=== PATIENT | male | born 1955 | race Caucasian/White ===

== ENCOUNTER 2022-07-29 11:41 | Emergency (ER) | payer MEDICARE, MEDICAID, SELFPAY ==
--- NOTE | ~2022-07-29 | XR_ITS ---
EXAMINATION: XR CHEST CLINICAL INFORMATION: Chest pain COMPARISON: 04/08/2018 TECHNIQUE: 2 views of the chest were obtained. FINDINGS: Lungs are well expanded. There appear to be chronically increased interstitial opacities of lower lung zones. This is not appreciably changed compared to 04/08/2018. No evidence of any superimposed acute consolidation or pleural effusion. Cardiac silhouette remains normal in size. The pulmonary vascular pattern is normal. There is intact appearance of partial visualized cervical spine fusion hardware. Mild and moderate multilevel discovertebral degenerative change of the visualized spine. XR/XR chest 2V IMPRESSION: The chronically observed increased reticular opacities in lower lung zones might be due to inflammation of airways. There is no acute cardiopulmonary abnormality compared to 04/08/2018.
[2022-07-29 11:55] VITALS: BP 112/74; PULSE 110; O2SAT 97
[2022-07-29 12:08] VITALS: BP 98/66; PULSE 96; RESP 18; TEMP 36.7; O2SAT 97; BMI 27.8
--- NOTE | 2022-07-29 12:11 | ED_ITS ---
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 Patient states that he was diagnosed with COVID-19 today and was sent here. Patient states that he has a cough but has no other complaints. Patient denies any dizziness, lightheadedness, abdominal pain, nausea, vomiting, fever, chills, blurry vision, double vision, loss of vision, chest pain, difficulty breathing, shortness of breath, back pain, night sweats, pain with urination, increased urinary frequency, increased urinary urgency, blood in his urine or stool, sy ncope or a near syncopal episode, recent trauma or falls, bowel incontinence, bladder incontinence, bowel retention, bladder retention, or any other complaints at this time. Onset (ago): day(s) (7) Severity: mild Severity scale (1-10): 2 Relieving factors: none Exacerbating factors: none Associated symptoms: cough Treatments prior to arrival: none Related Data Previous Rx's Medication Instructions Recorded benzonatate 100 mg capsule 100 mg PO BID PRN cough 7 days #14 07/29/22 caps prednisone 20 mg tablet 20 mg PO DAILY 7 days #7 tabs 07/29/22 Allergies Allergy/AdvReac Type Severity Reaction Status Date / Time No Known Allergies Allergy Verified 07/29/22 12:15 [No Known Allergies*] Review of Systems Constitutional: Constitutional: Reports no additional constitutional complaints, Denies chills, Denies fever(s) and Denies night sweats Eyes: Eyes: Reports no additional eye complaints, Denies blurry vision, Denies change in vision, Denies diplopia, Denies eye discharge, Denies loss of vision and Denies eye pain ENT: Denies dizziness Cardiovascular: Cardiovascular: Reports no additional cardiovascular complaints, Denies chest pain, Denies lightheadedness, Denies Loss of Consciousness and Denies dyspnea Respiratory: Respiratory: Reports no additional respiratory complaints, Reports cough and Denies dyspnea Gastrointestinal: Gastrointestinal: Reports no additional gastrointestinal complaints, Denies abdominal pain, Denies melena, Denies hematochezia, Denies change in bowel habits and Denies change in stool character Genitourinary: Genitourinary: Reports no additional male genitourinary complaints, Denies hematuria, Denies oliguria, Denies difficulty urinating, Denies dysuria, Denies urinary frequency, Denies urinary hesitancy, Denies urinary incontinence and Denies urinary urgency Musculoskeletal: Musculoskeletal: Reports no additional musculoskeletal complaints, Denies numbness and Denies tingling Neurologic: Denies dizziness, Denies loss of vision, Denies numbness and Denies tingling Psychiatric: Psychiatric: Reports no additional psychiatric complaints Endocrine: Endocrine: Reports no additional endocrine complaints Hematologic/Lymphatic: Hematologic/Lymphatic: Reports no additional hematologic/lymphatic complaints Allergic/Immunologic: Allergic/Immunologic: Reports no additional all ergic/immunologic complaints PMFSH Past Medical History Attestation statement: The following information was validated with the patient. Source: old records reviewed and nursing notes reviewed Social History Social History Advance Directives: No Advance Directives Information Provided: Yes Physical Exam ED Vital Signs: Vital Signs - 24 hr 07/29/22 12:08 Temperature 98.1 F Pulse Rate 96 Respiratory Rate 18 Blood Pressure 98/66 Pulse Oximetry 97 Oxygen Delivery Method Room Air BMI result Body Mass Index 27.8 Const General: cooperative, no acute distress, alert and awake Nutritional Appearance: well nourished Orientation/consciousness: patient oriented x3 Limitations: no limitations HENMT Head: Yes normal to inspection and Yes atraumatic Ears: hearing grossly normal bilaterally and external ears normal General nose exam: Normal external nose present, no nasal discharge noted and no epistaxis Face and sinus: Yes normal facial exam, No abrasion and No laceration Mouth: Normal oral and palatal mucosa present, no drooling and no muffled voice Eyes General: appearance normal, both eyes and all related structures Periorbital: periorbital findings normal Eyelids: Yes eyelids normal Conjunctivae: conjunctivae normal Pupils: Equal, round and reactive pupils present EOM: EOMs intact bilaterally Neck Neck: Yes normal visual inspection, Yes full ROM and Yes no lymphadenopathy Chest Chest palpation & inspection: normal inspection of the chest Resp Effort & Inspection: normal respiratory effort, able to speak in complete sentences and Actively coughing GI Inspection: Yes normal to inspection Neuro General: patient oriented x3 and moves all extremities Cranial nerves: Yes Equal, round and reactive pupils present Cognition (Neuro): normal cognition Motor exam (neuro): 5/5 motor strength present throughout Sensory Exam: Normal double simultaneous stimulation for sensation Coordination: [id number] test normal Extrem General: Yes normal to inspection, Yes full ROM and Yes capillary refill normal Psych Appearance: grossly normal Mental Status: mental status grossly normal Affect: normal affect Attitude: cooperative Thought process: Normal thought process present Thought content: Normal thought content present Insight: Good insight present (Psych) Medications Administered Discontinued Medications Generic Name Dose Route Start Last Admin Trade Name Henri PRN Reason Stop Dose Admin Albuterol Sulfate 2 puff 07/29/22 13:02 07/29/22 13:10 Albuterol Sulfate 90 Mcg 8 Gm Inhaler INHALE 07/29/22 13:03 2 puff ONCE ONE Administration Methylprednisolone Sodium Succinate 60 mg 07/29/22 13:02 07/29/22 13:11 Methylprednisolone Sod Succ 125 Mg/2 Ml Vial IM 07/29/22 13:03 60 mg ONCE ONE Administration Medical Decision Making Medical Decision Making [facility] Narrative: Patient is a 66 year old assigned male at with a history of HTN and DM presenting to the emergency department today with a cough and being COVID-19 positive. Patient's physical exam was unremarkable. Patient's blood work was unr emarkable. Patient's EKG was unremarkable. Patient's chest x-ray showed no acute process. I explained my physical exam findings as well as all test results to the patient. I answered all questions asked by the patient. Patient received 2 puffs of an albuterol inhaler with instructions on how to properly use it with a spacer and IM solu-medrol which he stated helped his symptoms significantly. I stressed the importance of the patient taking his medication as prescribed. I stressed the importance of the patient following up with his primary care provider. I stressed the importance of the patient returning to the emergency department immediately if his symptoms were to worsen or if he were to develop any dizziness, shortness of breath, difficulty breathing, chest pain, blurry vision, loss of vision, nausea, vomiting, abdominal pain, fever, chills, back pain, or any other complaints. Patient verbalized agreement and understanding with this treatment plan and discharge. Differential Diagnosis Differential Diagnoses: The differential diagnosis associated with the presentation includes COVID-19 Lab Data [facility] Lab Attestation statement: I reviewed the patient's lab results. 07/29/22 13:09 07/29/22 13:09 Labs: Lab Results 07/29/22 07/29/22 07/29/22 Range/Units 13:09 13:09 13:09 WBC 7.1 (4.8-10.8) X10*3/uL RBC 4.09 L (4.60-5.80) X10*6/uL Hgb 9.3 L (14.0-18.0) g/dl Hct 32.5 L (42.0-52.0) % MCV 79.5 L (80.0-98.0) fL MCH 22.7 L (27.0-33.0) pg MCHC 28.6 L (31.0-36.0) g/dl RDW 22.0 H (11.0-16.0) % Plt Count 210 (160-400) X10*3/uL MPV 10.3 (9.4-12.4) fL Immature Gran % (Auto) 0.4 (0.0-0.4) % Neut % (Auto) 77.4 H (45-73) % Lymph % (Auto) 10.2 L (20-40) % Navarro % (Auto) 11.6 H (2-11) % Eos % (Auto) 0.1 (0-4) % Baso % (Auto) 0.3 (0-2) % Lymph # (Auto) 0.7 L (1.2-4.9) X10*3/uL Navarro # (Auto) 0.8 (0.1-1.2) X10*3/uL Eos # (Auto) 0.0 (0.0-0.4) X10*3/uL Baso # (Auto) 0.0 (0.0-0.2) X10*3/uL Abs Immat Gran (auto) 0.03 (0.00-0.03) X10*3/uL Absolute Neuts (auto) 5.5 (2.0-8.3) x10*3/uL Absolute Nucleated RBC 0.000 (0.0-0.012) X10*3/uL Nucleated RBC % (auto) 0.0 (0.0-0.2) /100WBC VBG pH (7.32-7.43) VBG pCO2 mmHg VBG pO2 mmHg VBG HCO3 (22-26) mmol/L VBG O2 Saturation % VBG Base Excess mmol/L Sodium 137 (135-145) mmol/L Potassium 4.2 (3.3-5.1) mmol/L Chloride 100 (96-108) mmol/L Carbon Dioxide 26 (22-29) mmol/L Anion Gap 15 (12-20) BUN 21 H (9-16) mg/dL Creatinine 1.14 (0.5-1.4) mg/dL Estim Creat Clear Calc 74.4 Estimated GFR > 60 Random Glucose 165 H (60-115) mg/dL Calcium 9.2 (8.4-10.2) mg/dL Magnesium 1.6 (1.6-2.6) mg/dL Total Bilirubin 0.2 (0.0-1.0) mg/dL AST 27 (5-37) U/L ALT 19 (0-40) U/L Alkaline Phosphatase 62 (39-117) U/L Troponin I High Sens 3.9 (<3.5-35.0) ng/L Total Protein 7.4 (6.5-8.0) g/dL Albumin 4.3 (3.5-5.0) g/dL 07/29/22 Range/Units 13:13 WBC (4.8-10.8) X10*3/uL RBC (4.60-5.80) X10*6/uL Hgb (14.0-18.0) g/dl Hct (42.0-52.0) % MCV (80.0-98.0) fL MCH (27.0-33.0) pg MCHC (31.0-36.0) g/dl RDW (11.0-16.0) % Plt Count (160-400) X10*3/uL MPV (9.4-12.4) fL Immature Gran % (Auto) (0.0-0.4) % Neut % (Auto) (45-73) % Lymph % (Auto) (20-40) % Navarro % (Auto) (2-11) % Eos % (Auto) (0-4) % Baso % (Auto) (0-2) % Lymph # (Auto) (1.2-4.9) X10*3/uL Navarro # (Auto) (0.1-1.2) X10*3/uL Eos # (Auto) (0.0-0.4) X10*3/uL Baso # (Auto) (0.0-0.2) X10*3/uL Abs Immat Gran (auto) (0.00-0.03) X10*3/uL Absolute Neuts (auto) (2.0-8.3) x10*3/uL Absolute Nucleated RBC (0.0-0.012) X10*3/uL Nucleated RBC % (auto) (0.0-0.2) /100WBC VBG pH 7.39 (7.32-7.43) VBG pCO2 42 mmHg VBG pO2 43 mmHg VBG HCO3 26 (22-26) mmol/L VBG O2 Saturation 67.0 % VBG Base Excess 1.1 mmol/L Sodium (135-145) mmol/L Potassium (3.3-5.1) mmol/L Chloride (96-108) mmol/L Carbon Dioxide (22-29) mmol/L Anion Gap (12-20) BUN (9-16) mg/dL Creatinine (0.5-1.4) mg/dL Estim Creat Clear Calc Estimated GFR Random Glucose (60-115) mg/dL Calcium (8.4-10.2) mg/dL Magnesium (1.6-2.6) mg/dL Total Bilirubin (0.0-1.0) mg/dL AST (5-37) U/L ALT (0-40) U/L Alkaline Phosphatase (39-117) U/L Troponin I High Sens (<3.5-35.0) ng/L Total Protein (6.5-8.0) g/dL Albumin (3.5-5.0) g/dL Independent Interpretation I performed an independent interpretation of an: EKG Interpretation: Vent. Rate: 099 BPM ? ? Atrial Rate: 099 BPM P-R Int: 134 ms? QRS Dur: 080 ms QT Int: 328 ms ? ? ? P-R-T Axes: 022 -03 054 degrees QTc Int: 420 ms ? Normal sinus rhythm Minimal voltage criteria for LVH, may be normal variant ( R in aVL ) Borderline ECG When compared with ECG of 25-NOV-2017 12:23, No significant change was found DD/ 1311 Radiology Impression Radiologist Impression: My interpretation is in agreement with the radiologist's impression of this imaging study. EXAMINATION: XR CHEST CLINICAL INFORMATION: Chest pain COMPARISON: 04/08/2018 TECHNIQUE: 2 views of the chest were obtained. FINDINGS: Lungs are well expanded. There appear to be chronically increased interstitial opacities of lower lung zones. This is not appreciably changed compared to 04/08/2018. No evidence of any superimposed acute consolidation or pleural effusion. Cardiac silhouette remains normal in size. The pulmonary vascular pattern is normal. There is intact appearance of partial visualized cervical spine fusion hardware. Mild and moderate multilevel discovertebral degenerative change of the visualized spine. XR/XR chest 2V IMPRESSION: The chronically observed increased reticular opacities in lower lung zones might be due to inflammation of airways. There is no acute cardiopulmonary abnormality compared to 04/08/2018. Dictated By: Miguel Maharaj MD Signed By: Electronically signed by Miguel Maharaj MD 07/29/22 3530 Discharge Plan Discharge Clinical Impression: COVID-19 Patient Disposition: Home, Self-Care Instructions: COVID-19 (Coronavirus Disease 2019) (ED) Additional Instructions: Follow up with your primary care provider. Return to the emergency department immediately if your symptoms worsen or if you develop any dizziness, shortness of breath, difficulty breathing, chest pain, blurry vision, loss of vision, nausea, vomiting, abdominal pain, fever, chills, back pain, or any other complaints. Joy un seguimiento con tadeo proveedor de atenci?n primaria. Regrese al departamento de emergencias de inmediato si latia s?ntomas empeoran o si presenta mareos, falta de aire, dificultad para respirar, dolor de pecho, visi?n borrosa, p?rdida de la visi?n, n?useas, v?mitos, dolor abdominal, fiebre, escalofr?os, dolor de espalda o cualquier otras quejas. Prescriptions: New prednisone 20 mg tablet 20 mg PO DAILY 7 Days Qty: 7 0RF benzonatate 100 mg capsule 100 mg PO BID PRN (Reason: cough) 7 Days Qty: 14 0RF Referrals: Rolf Gamble MD [Primary Care Provider] - Interventions: ED Discharge Assessment Last Done: 07/29/22 14:51 Discharge Date/Time: 07/29/22 14:51 Print Language: Setswana
--- NOTE | 2022-07-29 12:20 | ECG_ITS ---
Test Reason : sob Blood Pressure : / mmHG Vent. Rate : 099 BPM Atrial Rate : 099 BPM P-R Int : 134 ms QRS Dur : 080 ms QT Int : 328 ms P-R-T Axes : 022 -03 054 degrees QTc Int : 420 ms Normal sinus rhythm Minimal voltage criteria for LVH, may be normal variant ( R in aVL ) Borderline ECG When compared with ECG of 25-NOV-2017 12:23, No significant change was found Referred By: Joi Garcia Electronically Signed By:DAMARI BEAVER
--- OUTSIDE RECORDS SUMMARY | 2022-07-29 13:05 | XMS_ITS | Continuity of Care Document ---
Author Name Unknown Organization [facility] Address [address] [place] [id number]- Care Team Providers Care Solution Manager Name Role Phone Name Rolf PARKS Primary Care Physician Encounter [facility] Date(s): 08/03/19 - 08/13/19 [facility] [address] [place] [id number]- [facility] Attending Physician: Armen Collins Admitting Physician: Armen Collins Referring Physician: Armen Collins Allergies, Adverse Reactions, Alerts Substance Reaction Severity Status NKA Active Immunizations Given and Recorded Vaccine Date Status Refusal Reason influenza virus vaccine, inactivated 03/23/17 Give n pneumococcal 23-valent vaccine 12/25/11 Given Medications acetaminophen-hydrocodone 325 mg-5 mg oral tablet See Instructions, PRN Pain , Moderate, 1-2 tab By Mouth Every 6 hours (not to exceed 4000 mg acetaminophen per day), # 80 tablet, 0 Refills, Maintenance, Tablet Start Date: 12/26/11 Status: Ordered Ascriptin Enteric 81 mg oral enteric coated tablet 2 tablets, By Mouth, 2 times a day, 0 Refills, Maintenance Start Date: 12/25/11 Status: Ordered aspirin 81 mg oral tablet 1 tablet = 81 mg, By Mouth, Daily, # 30 tablet, 11 Refills, Maintenance, 03/23/17 18:50:13, Tablet Start Date: 03/23/17 Status: Ordered clonazePAM 1 mg oral tablet 1 tablet = 1 mg, By Mouth, 2 times a day, # 28 tablet, 0 Refills, Maintenance, 04/21/17 18:02:43, Tablet Start Date: 04/21/17 Stop Date: 05/05/17 Status: Ordered clonazepam 2 mg oral tablet 1 tablet = 2 mg, By Mouth, Daily at bedtime, 0 Refills, Maintenance Start Date: 12/25/11 Status: Ordered enalapril 20 mg oral tablet 1 tablet = 20 mg, By Mouth, Daily, # 30 tablet, 0 Refills, Maintenance, Tablet Start Date: 12/25/11 Status: Ordered gabapentin 100 mg oral capsule 1 capsule = 100 mg, By Mouth, Daily, 0 Refills, Maintenance Start Date: 12/25/11 Status: Ordered gabapentin 100 mg oral capsule 100 mg, 1, capsule, By Mouth, Daily, in the morning, # 30 capsule, Refills 2, Tot. Refills 2, Maintenance, 03/23/17 18:52:40, Route to Pharmacy Electronically, [id number], [facility] [id number] Start Date: 03/23/17 Status: Ordered gabapentin 300 mg oral capsule 300 mg, 1, capsule, By Mouth, Daily at bedtime, # 30 capsule, Refills 2, Tot. Refills 2, Maintenance, 03/23/17 18:53:21, Route to Pharmacy Electronically, [id number], [facility] [id number] Start Date: 03/23/17 Status: Ordered glipizide 10 mg oral tablet 1 tablet = 10 mg, By Mouth, Daily, # 30 tablet, 0 Refills, Maintenance, Tablet Start Date: 12/25/11 Status: Ordered lisinopril 20 mg oral tablet 20 mg, 1, tablet, By Mouth, Daily, # 30 tablet, Refills 5, Tot. Refills 5, Maintenance, 03/24/17 16:57:27, Route to Pharmacy Electronically, [id number], [facility] Start Date: 03/24/17 Status: Ordered metFORMIN 1000 mg oral tablet 1 tablet = 1,000 mg, By Mouth, 2 times a day, # 60 tablet, 5 Refills, Maintenance, 03/24/17 16:56:54, Tablet Start Date: 03/24/17 Status: Ordered metformin 500 mg oral tablet 1 tablet = 500 mg, By Mouth, Daily, 0 Refills, Maintenance Start Date: 12/25/11 Status: Ordered naproxen 500 mg oral tablet 1 tablet = 500 mg, By Mouth, Daily, 0 Refills, Maintenance Start Date: 12/25/11 Status: Ordered PEG-3350 with Electolytes 240, mL, By Mouth, Every 10 minutes, 3840, mL, 0, 0, 06/30/07 8:04:17, <None>May mix with lemon craig crystal light, Print NORBERT Number, 71, Constant Indicator Start Date: 06/30/07 Status: Ordered Percocet-5/325 325 mg-5 mg oral tablet 1 tablet, By Mouth, Every 6 hours, # 56 tablet, 0 Refills, Maintenance Start Date: 02/09/12 Stop Date: 02/23/12 Status: Ordered Remeron 15 mg oral tablet 1 tablet = 15 mg, By Mouth, Daily at bedtime, # 30 tablet, 0 Refills, Maintenance, Tablet Start Date: 12/25/11 Status: Ordered simvastatin 20 mg oral tablet 1 tablet = 20 mg, By Mouth, Daily at bedtime, # 30 tablet, 0 Refills, Maintenance, Tablet Start Date: 12/25/11 Status: Ordered simvastatin 40 mg oral tablet 40 mg, 1, tablet, By Mouth, Daily at bedtime, # 30 tablet, Refills 0, Tot. Refills 0, Maintenance, 03/24/17 16:57:54, Route to Pharmacy Electronically, [id number][facility] [id number] Start Date: 03/24/17 Status: Ordered Vicodin 500 mg-5 mg oral tablet 2 tablet, By Mouth, 4 times a day, 0 Refills, Maintenance Start Date: 12/25/11 Status: Ordered Problem List Condition Effective Dates Status Health Status Inform ant Cervical myelopathy(Confirmed) Active Chronic low back pain(Confirmed) Active Diabetes mellitus(Confirmed) Active Hypertension(Confirmed) Active Insomnia(Confirmed) Active Knee pain, chronic(Confirmed) Active Anxiety and depression(Confirmed) Active Social History Social History Type Response Smoking Status Current every day nevin murillo entered on: 03/23/17 Sex
--- OUTSIDE RECORDS SUMMARY | 2022-07-29 13:05 | XMS_ITS | Continuity of Care Document ---
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 Name Role Phone Name Rolf PARKS Primary Care Physician [phone] [place] [facility] [place]16[place]22 - 06/18/[address] [address]- Encounter Diagnosis Pre-syncope(Final) - 06/16/22 Pre-syncope(Final) - 06/17/22 Discharge Disposition: A-D/C Home Attending Physician: Anusha Porter MD Admitting Physician: Charlie Chaves MD Referring Physician: Not on Staff, Referring MD Allergies, Adverse Reactions, Alerts No Known Allergies Immunizations Given and Recorded Vaccine Date Status Refusal Reason influenza virus vaccine, inactivated 03/23/17 Give n pneumococcal 23-valent vaccine 12/25/11 Given Medications acetaminophen-hydrocodone 325 mg-5 mg oral tablet See Instructions, PRN Pain , Moderate, 1-2 tab By Mouth Every 6 hours (not to exceed 4000 mg acetaminophen per day), # 80 tablet, 0 Refills, Maintenance, Tablet Start Date: 12/26/11 Status: Ordered aspirin 81 mg oral tablet [...] Refills, Maintenance Start Date: 12/25/11 Status: Ordered docusate-senna 50 mg-187 mg oral tablet 1 tablet, By Mouth, 2 times a day, PRN Constipation, for 14 days, # 30 tablet, 0 Refills, Acute 07/02/22 12:43:00 EST, 06/18/22 12:43:00 EST, Tablet, [facility], Partial fill upon patient request if the prescription is for a schedule II... Start Date: 06/18/22 Stop Date: 07/02/22 Status: Ordered enalapril 20 mg oral tablet 1 tablet = 20 mg, By Mouth, Daily, # 30 tablet, 0 Refills, Maintenance, 06/18/22 12:42:00 EST, Tablet, [facility], Partial fill upon patient request if the prescription is for a schedule II opioid drug., 180, cm, 06/18/22 12:15:00 EST, H... Start Date: 06/18/22 Stop Date: 07/18/22 Status: Ordered ferrous sulfate 325 mg oral enteric coated tablet 325 mg, 1, tablet, By Mouth, Daily, # 30 tablet, Refills 0, Tot. Refills 0, Maintenance, 06/18/22 12:44:00 EST, Route to Pharmacy Electronically, [facility], Partial fill upon patient request if the prescription is for a schedule II opio... Start Date: 06/18/22 Status: Ordered gabapentin 100 mg oral capsule 1 capsule = 100 mg, By Mouth, Daily, 0 Refills, Maintenance Start Date: 12/25/11 Status: Ordered gabapentin 100 mg oral capsule 100 mg, 1, capsule, By Mouth, Daily, in the morning, # 30 capsule, Refills 2, Tot. Refills 2, Maintenance, 03/23/17 18:52:40, Route to Pharmacy Electronically, [id number], [place] [id number] Start Date: 03/23/17 Status: Ordered gabapentin 300 mg oral capsule 300 mg, 1, capsule, By Mouth, Daily at bedtime, # 30 capsule, Refills 2, Tot. Refills 2, Maintenance, 03/23/17 18:53:21, Route to Pharmacy Electronically, [id number], [place] [id number] Start Date: 03/23/17 Status: Ordered glipizide 10 mg oral tablet 1 tablet = 10 mg, By Mouth, Daily, # 30 tablet, 0 Refills, Maintenance, Tablet Start Date: 12/25/11 Status: Ordered metFORMIN 1000 mg oral tablet 1 tablet = 1,000 mg, By Mouth, 2 times a day, # 60 tablet, 5 Refills, Maintenance, 03/24/17 16:56:54, Tablet Start Date: 03/24/17 Status: Ordered MiraLax oral powder for reconstitution = 17 Gm, By Mouth, Daily, dissolve in water before taking, # 527 Gm, 0 Refills, Acute 07/17/22 12:44:00 EDT, 06/18/22 12:44:00 EST, REC Powder, [facility], Partial fill upon patient request if the prescription is for a schedule II opioid... Start Date: 06/18/22 Stop Date: 07/17/22 Status: Ordered Remeron 15 mg oral tablet 1 tablet = 15 mg, By Mouth, Daily at bedtime, # 30 tablet, 0 Refills, Maintenance, Tablet Start Date: 12/25/11 Status: Ordered simvastatin 40 mg oral tablet 40 mg, 1, tablet, By Mouth, Daily at bedtime, # 30 tablet, Refills 0, Tot. Refills 0, Maintenance, 03/24/17 16:57:54, Route to Pharmacy Electronically, [id number], [place] [id number] Start Date: 03/24/17 Status: Ordered Vicodin 500 mg-5 mg oral tablet 2 tablet, By Mouth, 4 times a day, 0 Refills, Maintenance Start Date: 12/25/11 Status: Ordered Problem List Condition Confirmation Course Effective Dates Status H ealth Status Informant Cervical myelopathy Confirmed Active Chronic low back pain Confirmed Active Diabetes mellitus Confirmed Active Hyperlipidemia Confirmed Active Hypertension Confirmed Active Insomnia Confirmed Active Knee pain, chronic Confirmed Active Anxiety and depression Confirmed Active Procedures Procedure Date Related Diagnosis Body Site Status Colonoscopy and extirpation of lesion of colon 06/18/22 Completed Esophagogastroduodenoscopy and biopsy 06/18/22 Completed Results Radiology Reports * Exam Date Time Procedure Performing Provider Status 06/16/22 2:46 PM Chest 2 Views Frontal and Lat Rybinski , Nubia; Auth (Verified) Notes: (Chest 2 Views Frontal and Lat) Reason For Exam: Shortness of Breath, Fever;Other: RESULT: Chest 2 Views Frontal and Lat Chest 2 Views Frontal and Lat Indication: Dizziness, shortness of breath. COMPARISON: None. FINDINGS: LINES AND TUBES: None. LUNGS AND PLEURA: Slight reticular opacities throughout the lungs. Mild patchy opacities of the bilateral mid and lower lungs. No pleural effusion. No pneumothorax. HEART, MEDIASTINUM AND MAURICE: Mild prominence of the cardiac silhouette. Normal mediastinal and hilar contour. Limited assessment on this AP view. BONES AND SOFT TISSUES: Mild degenerative changes of the spine. Partially visualized cervical and thoracic spine fusion hardware. IMPRESSION: Slight reticular opacities throughout the lungs. In the setting of cardiomegaly this may represent pulmonary edema. Underlying contusion or aspiration pneumonia cannot be excluded. Mild patchy opacities in the bilateral mid and lower lungs, likely some overlying atelectasis, however, pneumonia cannot be completely excluded. I have personally reviewed the images and I agree with this report. WSN: [id number] Ordering Physician: Carlita Luciano Dictated By: Kevin Marques MD Dictated Date/Time: 06/16/22 3:08 pm Reviewed By: Osmin Ramirez MD Signed By: Osmin Ramirez MD Signed Date/Time: 06/16/22 3:13 pm Transcribed By: TOBI Transcribed Date/Time: 06/16/22 2:53 pm * Exam Date Time Procedure Performing Provider Status 06/16/22 12:[address] Cervical Spine W/ O Contrast Erika Jason; Sharee (Verified) Notes: (CT Cervical Spine W/O Contrast) Reason For Exam: Neck trauma, dangerous injury mechanism;Other: RESULT: CT Cervical Spine W/O Contrast CT Head/Brain W/O Contrast, CT Cervical Spine W/O Contrast INDICATION: Headache and dizziness status post fall. COMPARISON: CT cervical spine, 12/16/2011. No prior imaging of the head is available for comparison. TECHNIQUE: Incremental CT without contrast through the head was formatted in axial and coronal planes. Spiral CT without contrast through the cervical spine was formatted in 3 planes. Weight-based protocol using automatic tube modulation was performed to optimize scan parameters. CTDIvol Body: 18.70 mGy, DLP Body: 522 mGy*cm. CTDIvol Head: 39.80 mGy, DLP Head: 672 mGy*cm. FINDINGS: HEAD: Brain: The 4th ventricle is midline. Posterior fossa structures are grossly unremarkable. There is mild prominence of the ventricles and sulci with a cavum septum pellucidum noted. There is no hemorrhage, midline shift, or mass effect. Cintron-white differentiation is preserved without evidence of acute confluent lobar infarction. No extra-axial collection is seen. There is mild calcification of the carotid siphons. Orbits, paranasal sinuses and mastoids: The paranasal sinuses and mastoid air cells are clear. The orbits and globes are intact. Calvarium and soft tissues: The calvarium is intact. No fractures or bony lesions. The extracranialsoft tissues are unremarkable. CERVICAL SPINE: Bony structures: Postoperative changes are seen from a laminectomy from C5-C7. There has been posterior fusion from C4-T1 utilizing bilateral lateral mass screws from C4-C7 and bilateral pedicle screws at T1. Bilateral interconnecting vertical rods are seen, though there is a fracture through the right-sided vertical lopez at C7 (sagittal series 310, image 36). The right T1 screw traverses the costovertebral joint. There is straightening of the normal lordosis without subluxation. Vertebral body heights are preserved. C1-2 articulation and craniocervical junction are normal. There is no definite acute fracture. 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 The spinal canal is obscured at the levels of hardware due to streak artifact. There is severe bilateral neural foraminal stenosis at C3-4 due to uncovertebral spurring. Soft tissues and lung apices: The soft tissues are unremarkable. The paraseptal emphysematous changes are seen in the lung apices. IMPRESSION: 1. No evidence of acute traumatic injury to the head or cervical spine. 2. Postoperative changes are seen in the cervical spine with fracture through the right-sided vertical lopez at C7, of indeterminate age. WSN: [id number] Ordering Physician: Carlita Luciano Dictated By: Dean PARKS , Nga Sylvester Dictated Date/Time: 06/16/22 1:22 pm Reviewed By: Nga Moran MD Signed By: Nga Moran MD Signed Date/Time: 06/16/22 1:22 pm Transcribed By: TOBI Transcribed Date/Time: 06/16/22 1:11 pm * Exam Date Time Procedure Performing Provider Status 06/16/22 12:[address] Head/Brain W/O Contrast Erika Malik i; Auth (Verified) Notes: (CT Head/Brain W/O Contrast) Reason For Exam: Other: RESULT: CT Head/Brain W/O Contrast CT Head/Brain W/O Contrast, CT Cervical Spine W/O Contrast INDICATION: Headache and dizziness status post fall. COMPARISON: CT cervical spine, 12/16/2011. No prior imaging of the head is available for comparison. TECHNIQUE: Incremental CT without contrast through the head was formatted in axial and coronal planes. Spiral CT without contrast through the cervical spine was formatted in 3 planes. Weight-based protocol using automatic tube modulation was performed to optimize scan parameters. CTDIvol Body: 18.70 mGy, DLP Body: 522 mGy*cm. CTDIvol Head: 39.80 mGy, DLP Head: 672 mGy*cm. FINDINGS: HEAD: Brain: The 4th ventricle is midline. Posterior fossa structures are grossly unremarkable. There is mild prominence of the ventricles and sulci with a cavum septum pellucidum noted. There is no hemorrhage, midline shift, or mass effect. Cintron-white differentiation is preserved without evidence of acute confluent lobar infarction. No extra-axial collection is seen. There is mild calcification of the carotid siphons. Orbits, paranasal sinuses and mastoids: The paranasal sinuses and mastoid air cells are clear. The orbits and globes are intact. Calvarium and soft tissues: The calvarium is intact. No fractures or bony lesions. The extracranialsoft tissues are unremarkable. CERVICAL SPINE: Bony structures: Postoperative changes are seen from a laminectomy from C5-C7. There has been posterior fusion from C4-T1 utilizing bilateral lateral mass screws from C4-C7 and bilateral pedicle screws at T1. Bilateral interconnecting vertical rods are seen, though there is a fracture through the right-sided vertical lopez at C7 (sagittal series 310, image 36). The right T1 screw traverses the costovertebral joint. There is straightening of the normal lordosis without subluxation. Vertebral body heights are preserved. C1-2 articulation and craniocervical junction are normal. There is no definite acute fracture. 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 The spinal canal is obscured at the levels of hardware due to streak artifact. There is severe bilateral neural foraminal stenosis at C3-4 due to uncovertebral spurring. Soft tissues and lung apices: The soft tissues are unremarkable. The paraseptal emphysematous changes are seen in the lung apices. IMPRESSION: 1. No evidence of acute traumatic injury to the head or cervical spine. 2. Postoperative changes are seen in the cervical spine with fracture through the right-sided vertical lopez at C7, of indeterminate age. WSN: [id number] Ordering Physician: Carlita Luciano Dictated By: Nga Moran MD Dictated Date/Time: 06/16/22 1:22 pm Reviewed By: Nga Moran MD Signed By: Nga Moran MD Signed Date/Time: 06/16/22 1:22 pm Transcribed By: TOBI Transcribed Date/Time: 06/16/22 1:11 pm Vital Signs Most recent to oldest [Reference Range]: 1 2 3 Height 180 cm (06/18/22 12:15 PM) 180 cm (06/18/22 7:43 AM) 180 cm (06/18/22 4:32 AM) Oxygen Saturation [94-100 %] 98 % (06/18/22 12:15 PM) 96 % (06/18/22 8:50 AM) 94 % (06/18/22 8:46 AM) Pulse Rate [55-90 bpm] 83 bpm (06/18/22 12:15 PM) 90 bpm (06/18/22 7:43 AM) 86 bpm (06/18/22 4:32 AM) Blood Pressure [90-138/55-84 mm Hg] 140/87mm Hg *H* (06/18/22 12:15 PM) 125/86mm Hg (06/18/22 8:50 AM) 115/80mm Hg (06/18/22 8:46 AM) Respiratory Rate [16-30 br/min] 17 br/min (06/18/22 12:15 PM) 20 br/min (06/18/22 8:50 AM) 20 br/min (06/18/22 8:46 AM) Temperature [96.8-100.4 DegF] 97.7 DegF (06/18/22 12:15 PM) 97.9 DegF (06/18/22 7:43 AM) 98.1 DegF (06/18/22 4:32 AM) Mode of Delivery (Oxygen) Room air (06/18/22 12:15 PM) Room air (06/18/22 8:50 AM) Room air (06/18/22 8:46 AM) Blood pressure sites Arm, right (06/18/22 12:15 PM) Arm, right (06/18/22 8:50 AM) Arm, right (06/18/22 8:46 AM) Temperature Route Oral (06/18/22 12:15 PM) Temporal (06/18/22 7:43 AM) Oral (06/18/22 4:32 AM) Social History Social History Type Response Smoking Status 10 or more cigarette s (1/2 pack or more)/day in last 30 days entered on: 06/16/22 Sex Consult note * Freda Reid DO: SIGN Katharina Garcia: PERFORM, SIGN Katharina Garcia: SIGN, VERIFY Katharina Garcia: VERIFY Event Display: Consult Authored Date: [id number] Patient: LATANYA SHERMAN Age: 66 years Sex: Male : 1955 Associated Diagnoses: None Author: Katharina Garcia Maxi?? is a 66-year-old male who underwent C4-T1 compression with posterior lateral fusion in 2011 who presented to the emergency department after a fall. Neurosurgery paged regarding CT findings of afracture to the right side of the vertical lopez at C7. Maxi?? does not have any neck pain or focal neurologic deficits. Area of surgery is well fused, this time he does not need [place] collar there is no indication for surgical intervention. Educated patient that if he does develop any neck pain he may be referred to our office outpatient. D/W Dr. Reid History and physical note * Charlie Chaves MD P: MODIFY, PERFORM Event Display: History and Physical Hospital Authored Date: Patient: ??LATANYA SHERMAN ? Age:??66 Years?Sex:??Male?:??1955?? Chief Complaint/Reason for Consultation Pt coming from home with c/o fall r/t dizziness. Pt sts dizzy x 2 weeks, fall 2 weeks ago as well. Pt sts he hit his L knee and forehead, denies any pain. History of Present Illness 66-year-old male with history of hypertension, hyperlipidemia, diabetes,??cervical myelopathy, insomnia, chronic low back pain, osteoarthritis, anxiety, and depression presenting to the emergency department today after an episode of dizziness and then fall.?? He did hit his head, but did not lose co nsciousness.?? He also reported a fall 2 weeks ago associated with loss of balance.?? He denies anychest pain, but does endorse some shortness of breath with exertion.?? He has not had fever or cough.?? No abdominal pain.?? No vomiting.?? No changes in bowel movements, specifically no melena or hem atochezia.?? He does use Naprosyn as needed for his underlying arthritis and pain. ?? In the emergency room, the patient has been afebrile and hemodynamically stable. ??He does not have respiratory distress or hypoxia.?? He is found to have a hemoglobin of 7.0, without evidence foractive hemorrhage. Review of Systems Other than those positives as noted in the HPI above, the remaining comprehensive 14-point review of systems is negative. Objective ? Vital Signs?? Temperature: 98.2 DegF (06/16/22 17:14:00) Temperature Route: Oral (06/16/22 17:14:00) Pulse Rate: 90 bpm (06/16/22 17:14:00) Respiratory Rate: 18 br/min (06/16/22 17:14:00) Systolic Blood Pressure: 136 mm Hg (06/16/22 17:14:00) Diastolic Blood Pressure: 84 mm Hg (06/16/22 17:14:00) Blood pressure sites: Arm, right (06/16/22 17:14:00) Mean Arterial Pressure: 101 mm Hg (06/16/22 17:14:00) Pulse Pressure: 52 mm Hg (06/16/22 17:14:00) Oxygen Saturation: 98 % (06/16/22 17:14:00) Mode of Delivery (Oxygen): Room air (06/16/22 17:14:00) Early Warning Score: 0 (06/16/22 17:15:08) ? Pain Scores 1 - 10 Pain Scale Score: 0 (11:53) ? Physical Exam General Appearance: Alert, appears stated age, answers questions appropriately HEENT: Normocephalic, atraumatic, PERRL, EOMI, no scleral icterus, no facial droop, moist mucous membranes, no oropharynx lesions?? Neck: Supple, no JVD, no C-Spine tenderness, no LAD Cardiac: RRR, S1 & S2 present, no m / r / g appreciated Chest: Clear to auscultation bilaterally, no wheezing / ronchi / rales, no tenderness to percussion Abdomen: Soft, nontender, no distention, no rebound or guarding, no masses, no organomegaly, normalbowel sounds in all quadrants Extremities: No clubbing, cyanosis, or edema. ??2+ distal pulses. ??Capillary refill < 3 seconds. ??No calf tenderness or cords Skin: Warm, no rash or open wounds Neuro: ??A & O x 3, CN III-XII intact, strength 5/5 of upper / lower extremities bilaterally, gross sensation intact, no focal cerebellar abnl Psych: ??Stable mood, appropriate affect Assessment/Plan Assessment:??66-year-old male with history of hypertension, hyperlipidemia, diabetes,??cervical myelopathy, insomnia, chronic low back pain, osteoarthritis, anxiety, and depression presenting to the emergency department today after an episode of dizziness and then fall. He did hit his head, but didnot lose consciousness.??He is found to have hemoglobin of 7.0 without active hemorrhage. ?? Pre-syncope (R55):??I suspect??this patient became lightheaded??and fell secondary to symptomatic anemia.??Orthostatic vital signs not yet obtained.??There is no evidence thus far for cardiac arrhythmia or ACS. He appears euvolemic on exam.??No focal neurologic deficits on exam. 1.??Observation??on the medical floor with continuous EKG monitoring 2.??Check orthostatic vital signs 3.??Work-up for anemia as outlined ?? Abnormal CT scan, neck (R93.89):??The patient is noted to have postoperative changes in the cervical spine??with fracture through the right-sided vertical loepz at C7, of indeterminate age. The patient was seen by the neurosurgical service and does not have any neck pain or focal neurologic deficits. The area of surgery is well fused, and thus there is no need for collar or surgical intervention. ?? Iron deficiency anemia (D50.9):??Suspected occult GI bleeding versus nutritional deficiency.??The patient??has never had endoscopic work-up that he can recall.??Rectal exam here in the emergency room??per the ER clinician??did not show any bloody or black stool, and no masses.??The patient remains afebrile and hemodynamically stable. We will monitor serial CBC??and transfuse for hemoglobin less than 7. Check B12 level, folate level, reticulocyte count, and TSH. Stop NSAIDs and Aspirin until GI bleeding is ruled out. GI consultation requested. The patient will??need iron supplementation. ?? Abnormal chest x-ray (R93.89):??The patient is noted to have reticular opacities throughout the lungs, without effusion or pneumothorax. There is mild prominence of the cardiac silhouette, but the patient does not have significant crackles on exam or elevated cardiac biomarkers. Findings likely represent atelectasis, and he does not appear to be symptomatic at this time. Chest CT can be considered as outpatient to further evaluate. ?? Diabetes mellitus (E11.9):??The patient was previously prescribed??metformin??and glipizide,??but is unable to tell me if he is currently taking these and does not have a current medication list. There are no records in the external medication reconciliation. I am awaiting medication reconciliation with the pharmacy resident. Follow POC's with??insulin lispro sliding scale coverage. ?? Hypertension (I10) Hyperlipidemia (E78.5):??Blood pressure is currently controlled. The patient does not have a current medication list,??but family states he fills medications at [facility] [address].?? Josue has no record of him filling meds in years.??There??are no records in the external medication reconciliation. He was previously??taking lisinopril??and simvastatin, for which I am awaiting??medication reconciliation with the pharmacy resident. ?? Anxiety and depression (F41.9):??The patient was previously prescribed clonazepam??and gabapentin. I am awaiting medication reconciliation with the pharmacy resident. ?? VTE Prophylaxis:??SCDs with possible GI bleed. ?VTE Prophylaxis Assessment:??VTE Prophylaxis Ordered ?? Code Status:??FULL. ?Order Code Status:??Code Status Ordered ?? Discharge Planning:??Anticipate home with family, 1-2 hospital days. ?? I spent a total of 78 minutes today reviewing the chart / medical records, evaluating the patient, evaluating and interpreting laboratory and imaging data, formulating and discussing the treatment plan, and documenting the encounter. ? Histories Allergies Allergies ?(Active and Proposed Allergies Only) NKA? (Severity: Unknown severity, Onset: Unknown) ? Past Medical History/Problem List Active Problems??(8) Anxiety and depression Cervical myelopathy Chronic low back pain Diabetes mellitus Hyperlipidemia Hypertension Insomnia Knee pain, chronic ? Past Surgical History Laminectomy, facetectomy and foraminotomy (unilateral or bilateral with decompression of spinal cord, cauda equina and/or nerve root[s], [eg, spinal or lateral recess stenosis]), single vertebral segment; cervical: 12/24/11 ? Social History Tobacco Details:??Current every day smoker ETOH:?? Denies significant use. Drugs:?? Denies. ? Family History No family history of GI??disease or cancer. ? Medications Home Medications Acetaminophen / Hydrocodone (Vicodin 500 mg-5 mg oral tablet)?2?tab(s)?By Mouth?4 timesa day Acetaminophen / Hydrocodone (acetaminophen-hydrocodone 325 mg-5 mg oral tablet)?See Instructions?as needed?Pain , Moderate?1-2 tab By Mouth Every 6 hours(not to exceed 4000 mg acetaminophen per day) Aspirin (Ascriptin Enteric 81 mg oral enteric coated tablet)?2 tablets?By Mouth?2 times a day Aspirin (aspirin 81 mg oral tablet)?1?tab(s)?81?Milligram?By Mouth?Daily Clonazepam (clonazepam 2 mg oral tablet)?1?tab(s)?2?Milligram?By Mouth?Daily at bedtime Clonazepam (clonazePAM 1 mg oral tablet)?1?tab(s)?1?Milligram?By Mouth?2 times a day?for 14?Days Enalapril (enalapril 20 mg oral tablet)?1?tab(s)?20?Milligram?By Mouth?Daily Gabapentin (gabapentin 100 mg oral capsule)?1?capsule?100?Milligram?By Mouth?Daily Gabapentin (gabapentin 100 mg oral capsule)?100?Milligram?1?capsule?By Mouth?Daily?in the morning Gabapentin (gabapentin 300 mg oral capsule)?300?Milligram?1?capsule?By Mouth?Daily at bedtime GlipiZIDE (glipizide 10 mg oral tablet)?1?tab(s)?10?Milligram?By Mouth?Daily Lisinopril (lisinopril 20 mg oral tablet)?20?Milligram?1?tablet?By Mouth?Daily Metformin (metformin 500 mg oral tablet)?1?tab(s)?500?Milligram?By Mouth?Daily Metformin (metFORMIN 1000 mg oral tablet)?1?tab(s)?1,000?Milligram?By Mouth?2 times a day Mirtazapine (Remeron 15 mg oral tablet)?1?tab(s)?15?Milligram?By Mouth?Daily at bedtime Naproxen (naproxen 500 mg oral tablet)?1?tab(s)?500?Milligram?By Mouth?Daily Oxycodone / Acetaminophen (Percocet-5/325 325 mg-5 mg oral tablet)?1?tab(s)?By Mouth?Every 6 hours?for 14?Days PEG Electrolyte Solution (PEG-3350 with Electolytes)?240?Milliliter?By Mouth?Every 10 minutes?<None>May mix with lemon tulalip crystal light Simvastatin (simvastatin 20 mg oral tablet)?1?tab(s)?20?Milligram?By Mouth?Daily at bedtime Simvastatin (simvastatin 40 mg oral tablet)?40?Milligram?1?tablet?By Mouth?Daily at bedtime ? Results Recent Labs BLOOD COUNT & DIFF WBC 7.6 k/mm3 ()?? 06/16/2022 12:42 RBC 3.54 m/mm3 (Low)?? 06/16/2022 12:42 Hgb 7.0 Gm/dL (Low)?? 06/16/2022 12:42 Hct 25.7 % (Low)?? 06/16/2022 12:42 MCV 72.6 femtoliters (Low)?? 06/16/2022 12:42 MCH 19.8 pg (Low)?? 06/16/2022 12:42 MCHC 27.2 g/dL (Low)?? 06/16/2022 12:42 Platelet Count 274 k/mm3 ()?? 06/16/2022 12:42 RDW-SD 46.1 femtoliters ()?? 06/16/2022 12:42 MPV 10.3 femtoliters ()?? 06/16/2022 12:42 Nucleated RBC (Automated) 0.0 #/100 WBC'S ()?? 06/16/2022 12:42 Abs. NRBC 0.0 k/mm3 ()?? 06/16/2022 12:42 Abs. Neut 5.2 k/mm3 ()?? 06/16/2022 12:42 Abs. Lymph 1.4 k/mm3 ()?? 06/16/2022 12:42 Abs. Emanuel 0.6 k/mm3 ()?? 06/16/2022 12:42 Abs. Eo 0.3 k/mm3 ()?? 06/16/2022 12:42 Abs. Baso 0.1 k/mm3 ()?? 06/16/2022 12:42 Neut % 68.5 % ()?? 06/16/2022 12:42 Lymph % 18.7 % ()?? 06/16/2022 12:42 Emanuel % 8.2 % ()?? 06/16/2022 12:42 Eos % 3.6 % ()?? 06/16/2022 12:42 Baso % 0.7 % ()?? 06/16/2022 12:42 Imm Gran 0.3 % ()?? 06/16/2022 12:42 Abs. Imm Gran 0.0 k/mm3 ()?? 06/16/2022 12:42 ?? CARDIAC Nt-Probnp 77 pg/mL ()?? 06/16/2022 12:42 High Sensitivity Troponin (HSTnT) 19 ng/L ()?? 06/16/2022 14:50 ?? CHEM GENERAL Sodium 136 mmol/L ()?? 06/16/2022 12:42 Potassium 4.7 mmol/L ()?? 06/16/2022 12:42 Chloride 100 mmol/L ()?? 06/16/2022 12:42 Bicarbonate Level 28 mmol/L ()?? 06/16/2022 12:42 Anion Gap 8 ()?? 06/16/2022 12:42 Glucose Level 131 mg/dL (High)?? 06/16/2022 12:42 BUN 24 mg/dL (High)?? 06/16/2022 12:42 Creatinine-Blood 0.9 mg/dL ()?? 06/16/2022 12:42 Estimated GFR Creatinine 94 ML/MIN/1.73 M2 ()?? 06/16/2022 12:42 Calcium 9.3 mg/dL ()?? 06/16/2022 12:42 Magnesium 1.7 mg/dL ()?? 06/16/2022 12:42 Lactate 1.8 mmol/L ()?? 06/16/2022 12:42 Iron Level 20 mcg/dL (Low)?? 06/16/2022 12:42 Iron Binding Capacity, Unsaturated 477 mcg/dL (High)?? 06/16/2022 12:42 Iron Binding Capacity, Estimated Total 497 mcg/dL ()?? 06/16/2022 12:42 % Iron Saturation 4 % (Low)?? 06/16/2022 12:42 Ferritin Level 8 ng/mL (Low)?? 06/16/2022 12:42 ?? VIROLOGY Influenza A PCR NEGATIVE ()?? 06/16/2022 12:26 Influenza B PCR NEGATIVE ()?? 06/16/2022 12:26 RSV PCR NEGATIVE ()?? 06/16/2022 12:26 COVID-19 PCR Specimen Source NASAL ()?? 06/16/2022 12:26 COVID-19 PCR Result NEGATIVE ()?? 06/16/2022 12:26 ? Imaging(s) ?CT Head/Brain W/O Contrast ?? 06/16/2022 12:50??by Dean PARKS Nga ?IMPRESSION: 1. No evidence of acute traumatic injury to the head or cervical spine. 2. Postoperative changes are seen in the cervical spine with fracture through the right-sided vertical lopez at C7, of indeterminate age. ?Chest 2 Views Frontal and Lat ?? 06/16/2022 14:46??by Osmin Ramirez MD ?IMPRESSION: Slight reticular opacities throughout the lungs. In the setting of cardiomegaly this may represent pulmonary edema. Underlying contusion or aspiration pneumonia cannot be excluded. Mild patchy opacities in the bilateral mid and lower lungs, likely some overlying atelectasis, however, pneumonia cannot be completely excluded. ? Hospital Progress note * Nguyễn Godoy MD: MODIFY, PERFORM, MODIFY Event Display: Progress Note Hospital Authored Date: [id number] Patient: ??LATANYA SHERMAN ? Age:??66 Years?Sex:??Male?:??1955?? Subjective Patient seen today. ??Daughter is bedside Communication was held with the help of health and safety inspector Patient agreeable with??blood transfusion.?? Declining any chest pain, shortness of breath??right now Review of Systems ROS stated above Objective Measurements?? Height: 180 cm (06/17/22) ?? Vital Signs?? Temperature: 98.6 DegF (06/17/22 11:09:00) Temperature Route: Oral (06/17/22 11:09:00) Pulse Rate:??91 bpm??High (06/17/22 11:09:00) Pulse Rate, Lyin bpm (06/17/22 07:39:00) Systolic Blood Pressure, Lyin mm Hg (06/17/22 07:39:00) Diastolic Blood Pressure, Lyin mm Hg (06/17/22 07:39:00) Pulse Rate, Sittin bpm (06/17/22 07:39:00) Systolic Blood Pressure, Sittin mm Hg (06/17/22 07:39:00) Diastolic Blood Pressure, Sittin mm Hg (06/17/22 07:39:00) Pulse Rate, Standin bpm (06/17/22 07:39:00) Systolic Blood Pressure, Standin mm Hg (06/17/22 07:39:00) Diastolic Blood Pressure, Standin mm Hg (06/17/22 07:39:00) Respiratory Rate: 18 br/min (06/17/22 11:09:00) Systolic Blood Pressure:??142 mm Hg??High (06/17/22 11:09:00) Diastolic Blood Pressure:??90 mm Hg??High (06/17/22 11:09:00) Blood pressure sites: Arm, right (06/17/22 11:09:00) Mean Arterial Pressure: 87 mm Hg (06/17/22 03:42:00) Pulse Pressure: 43 mm Hg (06/17/22 03:42:00) Oxygen Saturation: 96 % (06/17/22 11:09:00) Mode of Delivery (Oxygen): Room air (06/17/22 11:09:00) Early Warning Score: 0 (06/17/22 11:09:38) ? Intake/Output? 06/16 11:37 06/17 07:00 06/16 07:00 06/15 07:00 ?? 06/17 12:23 06/17 12:23 06/17 06:59 06/16 06:59 Urine Count ?1 ?1 ?0 ?0 ? Mobility & Ambulation Level Mobility & Ambulation Level Ambulatory devices needed: None (06/16/22) ? Physical Exam General Appearance: Alert, answers questions appropriately Cardiac: RRR, S1 & S2 present, no m / r / g appreciated Chest: Clear to auscultation bilaterally, no wheezing / ronchi / rales, no tenderness to percussion Abdomen: Soft, nontender, no distention, no rebound or guarding, no masses, no organomegaly, normalbowel sounds in all quadrants Psych: ??Stable mood, appropriate affect _ Inpatient Medications Medications (9) Active SCHEDULED: (3) Influenza Quad Adult High Dose (> 65yr) Fluzone 0.7mL (Influenza, Quad High Dose Vaccine (Fluzone High Dose)) ??0.7 mL, Intramuscular, Once Insulin Lispro 100 units/mL Inj (3mL) (Insulin LISPRO Sliding Scale) ??2-10 units, Subcutaneous Injection, 3 times a day before meals NaCl 0.9% Flush 3ml (NaCL 0.9% Flush) ??3 mL, IV Push, Every 8 hours CONTINUOUS: (0) PRN: (6) Acetaminophen 325 mg Tablet (Acetaminophen Tablet) ??650 mg, By Mouth, Every 4 hours Melatonin 3 mg Tablet (Melatonin Tablet) ??3 mg, By Mouth, Daily at bedtime NaCl 0.9% Flush 3ml (NaCL 0.9% Flush) ??3 mL, IV Push, Every 8 hours Polyethylene Glycol 17 Gm Powder (MiraLax Powder) ??17 Gm 1 pack/packet, By Mouth, Daily Senna 8.6 mg / Docusate 50 mg tablet (Docusate/Senna Tablet) ??1 tablet, By Mouth, 2 times a day Simethicone 80 mg Chewable Tablet (Simethicone Tablet) ??80 mg, Chew, 3 times a day ? Assessment/Plan ?? 66-year-old male with history of hypertension, hyperlipidemia, diabetes,??cervical myelopathy, insomnia, chronic low back pain, osteoarthritis, anxiety, and depression presenting to the emergency department today after an episode of dizziness and then fall. He did hit his head, but did not lose cons ciousness.??He is found to have hemoglobin of 7.0 without active hemorrhage. ?? Pre-syncope?? Orthostatic hypotension became lightheaded??and fell secondary to symptomatic anemia.??Orthostatic vital signs not yet obtained.??There is no evidence thus far for cardiac arrhythmia or ACS. He appears euvolemic on exam.??No focal neurologic deficits on exam. Hemoglobin 7--> 6.9--> 6.6 Severe iron deficiency anemia, low iron level 20, increased binding capacity 477, low iron saturation at 4%, low ferritin level at 8 Normal B12, folate, TSH Positive orthostatic changes Plan Consent for blood transfusion taken.?? 1 unit PRBC transfusion today EGD and colonoscopy afterwards, Patient would need IV iron infusion as well ?? Abnormal CT scan, neck (R93.89):?? The patient is noted to have postoperative changes in the cervical spine??with fracture through theright-sided vertical lopez at C7, of indeterminate age. The patient was seen by the neurosurgical service and does not have any neck pain or focal neurologic deficits. The area of surgery is well fused, and thus there is no need for collar or surgical intervention. ?? Abnormal chest x-ray (R93.89):??The patient is noted to have reticular opacities throughout the lungs, without effusion or pneumothorax. There is mild prominence of the cardiac silhouette, but the patient does not have significant crackles on exam or elevated cardiac biomarkers. Findings likely represent atelectasis, and he does not appear to be symptomatic at this time. Chest CT can be considered as outpatient to further evaluate. ? Chronic condition: By [facility] 'Med list was unable to be completed due to questionable compliance. Per pharmacy/[facility] no meds on file which [facility] keeps electronic records for two years. Mostrecent PCP note is from 06/05/2019. A copy of that office visit was placed in patient chart'?? Diabetes mellitus (E11.9):??The patient was previously prescribed??metformin??and glipizide,??but is unable to tell me if he is currently taking these and does not have a current medication list. There are no records in the external medication reconciliation. Follow POC's with??insulin lispro sliding scale coverage. Adding A1c ?? Hypertension (I10) Hyperlipidemia (E78.5):?? Blood pressure is currently controlled. The patient does not have a current medication list,??but family states he fills medications at [facility] [address].?? [facility] has no record of him filling meds in years.??There??are no records in the external medication reconciliation. He was previously??taking lisinopril??and simvastatin Will observe??him off the meds ?? Anxiety and depression (F41.9):?? The patient was previously prescribed clonazepam??and gabapentin. will observe him off meds ? VTE Prophylaxis:??SCDs with possible GI bleed. Code Status:??FULL. ?? OMN: PRBC, EGD/colonoscopy, will need IV infusion * Nguyễn Godoy MD: PERFORM Event Display: Progress Note Hospital Authored Date: EGD is cancelled, scheduled for tomorrow Patient receiving PRBC and iron today CBC tomorrow next AM, and transfusse if <7 * Alta Maldonado RN: SIGN, MODIFY, PERFORM, SIGN, VERIFY Event Display: Progress Note Hospital Authored Date: Patient: LATANYA SHERMAN Age: 66 years Sex: Male : 1955 Associated Diagnoses: None Author: Alta Malodnado RN Findings Narrative/Incidental Pt on d3b for syncope and symptomatic anemia. A+Ox3. British speaking, family at bedside and helping to translate. Pt denies any pain. C/o dizziness with ambulation and weakness. Denies nausea, vomiting, abd pain or bloody stools; +BS x 4 quads. Denies SOB, cough or CP. Telemetry; SR/ST with ambulation up to 140's and low 100's or high 90's while in his bed. Pt oriented to unit, call enriquez system and bed mechanics. Refer to madi for full assessment. Keeping pt NPO after midnight. Go-Lytely requested. Will do orthostactics in am. WCTM.... * Alta Maldonado RN: PERFORM Event Display: Progress Note Hospital Authored Date: Pt completed Go-Lytely before midnight. Had multiple watery BMs. NPO after midnight. No complaints or events over night. * Charlie Chaves MD: VERIFY, PERFORM, SIGN Event Display: Progress Note Hospital Authored Date: [id number] Patient: LATANYA SHERMAN Age: 66 years Sex: Male : 1955 Associated Diagnoses: None Author: Charlie Chaves MD 66-year-old male with history of hypertension, hyperlipidemia, diabetes, insomnia, chronic low backpain, osteoarthritis, anxiety, and depression presenting to the emergency department today after anepisode of dizziness and then fall. He did hit his head, but did not lose consciousness. He also reported a fall 2 weeks ago associated with loss of balance. He denies chest pain, but does endorse shortness of breath. No fever. No abdominal pain. No vomiting. No melena or hematochezia reported. He does use Naprosyn as needed for his underlying arthritis and pain. On exam, the patient is afebrile and hemodynamically stable. No respiratory distress or hypoxia. HEENT - nc/at, MMM, no OP lesions Lungs - clear to auscultation bilaterally. Cardiovascular - regular rate and rhythm, S1 and S2, no murmurs, rubs, gallops. Abdomen - soft, NT/ND, no rebound / guarding, normal BS Rectal - Per ER clinician, no mass or blood / black stool Ext - warm, dry Labs - Hgb 7.0, MCV 72 (previous Hgb 13.8 in 2011) BUN 24, Cr 0.9, Lactate 1.8 Head Computed Tomography: IMPRESSION: 1. No evidence of acute traumatic injury to the head or cervical spine. 2. Postoperative changes are seen in the cervical spine with fracture through the right-sided vertical lopez at C7, of indeterminate age. ER clinician spoke with neurosurgery who stated that since his operation was about 10 years ago, the vertebral body should have already fused, and they recommend that he can be cleared of his c-collar as he was having no neck pain. If patient does develop neck pain he should follow-up with his neurosurgeon. Patient's collar was cleared. A/P: Presyncope, Symptomatic anemia, ? occult GI bleed with microcytic indices and elevated BUN/Cr ratio, but no evidence of active hemorrhage. - Patient will need serial CBC and transfuse for Hgb < 7; check iron studies. - Patient will need GI consult (available at [id number]). 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 Physical Examination Vital Signs Vitals : VITALS 06/16/2022 14:04 EST Pulse Rate 89 bpm Respiratory Rate 18 br/min Systolic Blood Pressure 140 mm Hg H Diastolic Blood Pressure 81 mm Hg Blood pressure sites Arm, left Pulse Pressure 59 mm Hg Oxygen Saturation 100 % Mode of Delivery (Oxygen) Room air 06/16/2022 11:55 EST Temperature 98.2 DegF Temperature Route Oral Pulse Rate 91 bpm H Respiratory Rate 18 br/min Systolic Blood Pressure 131 mm Hg Diastolic Blood Pressure 75 mm Hg Blood pressure sites Arm, left Mean Arterial Pressure 94 mm Hg Pulse Pressure 56 mm Hg Oxygen Saturation 96 % Mode of Delivery (Oxygen) Room air 06/16/2022 11:53 EST 1 - 10 pain scale score 0 . Note * Anusha Porter MD: PERFORM Event Display: Discharge/Transfer Note Hospital Authored Date: [id number] Patient: ??LATANYA SHERMAN ? Age:??66 Years?Sex:??Male?:??1955?? Patient Information Discharge Location: [facility] Primary Care Physician: Rolf Gamble MD Admit Date/Time: 06/16/22 11:37 Discharge Disposition Discharge Disposition: Home: No Services Discharge Diagnosis Pre-syncope (R55) Abnormal CT scan, neck (R93.89) Iron deficiency anemia (D50.9) Abnormal chest x-ray (R93.89) Diabetes mellitus (E11.9) Hypertension (I10) Hyperlipidemia (E78.5) Anxiety and depression (F41.9) Pre-syncope (R55) ?? _ Discharge Medications Acetaminophen / Hydrocodone (Vicodin 500 mg-5 mg oral tablet)?2?tab(s)?By Mouth?4 timesa day Acetaminophen / Hydrocodone (acetaminophen-hydrocodone 325 mg-5 mg oral tablet)?See Instructions?as needed?Pain , Moderate?1-2 tab By Mouth Every 6 hours(not to exceed 4000 mg acetaminophen per day) Aspirin (aspirin 81 mg oral tablet)?1?tab(s)?81?Milligram?By Mouth?Daily Clonazepam (clonazepam 2 mg oral tablet)?1?tab(s)?2?Milligram?By Mouth?Daily at bedtime Clonazepam (clonazePAM 1 mg oral tablet)?1?tab(s)?1?Milligram?By Mouth?2 times a day?for 14?Days Docusate-Senna (docusate-senna 50 mg-187 mg oral tablet)?1?tab(s)?By Mouth?2 times a day?as needed?Constipation?for 14?Days Enalapril (enalapril 20 mg oral tablet)?1?tab(s)?20?Milligram?By Mouth?Daily?for 30?Days Ferrous Sulfate (ferrous sulfate 325 mg oral enteric coated tablet)?325?Milligram?1?tablet?By Mouth?Daily Gabapentin (gabapentin 100 mg oral capsule)?1?capsule?100?Milligram?By Mouth?Daily Gabapentin (gabapentin 100 mg oral capsule)?100?Milligram?1?capsule?By Mouth?Daily?in the morning Gabapentin (gabapentin 300 mg oral capsule)?300?Milligram?1?capsule?By Mouth?Daily at bedtime GlipiZIDE (glipizide 10 mg oral tablet)?1?tab(s)?10?Milligram?By Mouth?Daily Metformin (metFORMIN 1000 mg oral tablet)?1?tab(s)?1,000?Milligram?By Mouth?2 times a day Mirtazapine (Remeron 15 mg oral tablet)?1?tab(s)?15?Milligram?By Mouth?Daily at bedtime Polyethylene Glycol 3350 (MiraLax oral powder for reconstitution)?17?gram?By Mouth?Daily?dissolve in water before taking Simvastatin (simvastatin 40 mg oral tablet)?40?Milligram?1?tablet?By Mouth?Daily at bedtime ? Quality Measures Tobacco Use Treatment:? Durable Medical Equipment Ambulatory devices needed: None (06/16/22) ? Medications Started ferrous sulphate, docusate senna, miralax Allergies Allergies ?(Active and Proposed Allergies Only) NKA? (Severity: Unknown severity, Onset: Unknown) ? Objective Assessment and Plan 66-year-old male with history of hypertension, hyperlipidemia, diabetes,??cervical myelopathy, insomnia, chronic low back pain, osteoarthritis, anxiety, and depression presenting to the emergency department today after an episode of dizziness and then fall. He did hit his head, but did not lose cons ciousness.??He is found to have hemoglobin of 7.0 without active hemorrhage. Hemoglobin stable posttransfusion. GI was consulted, s/p EGD and colonoscopy which showed external and internal hemorrhoids no other source of bleeding.?? Discussed at length at bedside with patient about the importance ofavoiding constipation.?? Patient also received IV iron, denied having any dizziness or lightheadedness today.?? He will be discharged home today.?? Discharge plan was discussed with Pt?? and his son who wsa at bedside. ?? Pre-syncope?? Orthostatic hypotension ??Symptomatic iron deficiency anemia became lightheaded??and fell secondary to symptomatic anemia.??There is no evidence thus far for cardiac arrhythmia or ACS. He appears euvolemic on exam.??No focal neurologic deficits on exam. Hemoglobin 7--> 6.9--> 6.6 Severe iron deficiency anemia, low iron level 20, increased binding capacity 477, low iron saturation at 4%, low ferritin level at 8 Normal B12, folate, TSH Positive orthostatic changes ??Hb stable post transfusion ??no?? dizziness now?GI on board. s/p EGD colonoscopy - showed external , internal hemorrhoids ??Discussed about hemorrhoids,?? recommended to avoid constipation ??Bowel Meds prescribed on discharge ? Abnormal CT scan, neck (R93.89):?? The patient is noted to have postoperative changes in the cervical spine??with fracture through theright-sided vertical lopez at C7, of indeterminate age. The patient was seen by the neurosurgical service and does not have any neck pain or focal neurologic deficits. The area of surgery is well fused, and thus there is no need for collar or surgical intervention. ?? Abnormal chest x-ray (R93.89):??The patient is noted to have reticular opacities throughout the lungs, without effusion or pneumothorax. There is mild prominence of the cardiac silhouette, but the patient does not have significant crackles on exam or elevated cardiac biomarkers. Findings likely represent atelectasis, and he does not appear to be symptomatic at this time. Chest CT can be considered as outpatient to further evaluate. ? Chronic condition: By [facility] 'Med list was unable to be completed due to questionable compliance. [facility] no meds on file which [facility] keeps electronic records for two years. Mostrecent PCP note is from 06/05/2019. A copy of that office visit was placed in patient chart'?? Diabetes mellitus (E11.9):??The patient was previously prescribed??metformin??and glipizide,??but is unable to tell me if he is currently taking these and does not have a current medication list. There are no records in the external medication reconciliation. Pt was recommended to resume home meds and f/u with PCP ?? Hypertension (I10) Hyperlipidemia (E78.5):?? Blood pressure is currently controlled. ??Pt mentioned he is on Enalapril 20 mg daily and does not have any meds, last refil was from?? [facility] Refilled enalapril on discharge The patient does not have a current medication list,??but family states he fills medications at [facility] on [address].?? [facility] has no record of him filling meds in years.??There??are no records in the external medication reconciliation. ?? Anxiety and depression (F41.9):?? Resume home meds? . Physical Exam GENERAL: In no apparent distress HEENT: Head normocephalic, PERRL,Moist mucous membrane. 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 PSYCHIATRIC: Calm and co-operative SKIN: Warm and dry. ? Surgical Procedures Colonoscopy/Gastroscopy (EGD) 06/18/2022 08:00 Pending Results Add On Lab Order ordered on 06/16/2022 Add On Lab Order ordered on 06/17/2022 COVID-19 (2019 Novel Coronavirus) PCR ordered on 06/18/2022 Pathology Tissue Request ordered on 06/18/2022 Transfuse RBCs ordered on 06/17/2022 Patient Education Titles Anemia, Iron-Deficiency (Adult)?? Constipation (Adult)?? Understanding Hemorrhoids?? Hemorrhoids Discharge Instructions?? Follow-Up Appointments Added Follow Up ?Time Frame ?Comments Name Rolf PARKS?1 to 2 weeks Post Discharge Care Discharge ?06/18/22 12:47:00 EST Discharge Prescriptions ?ePrescribed, ??06/18/22 12:47:00 EST Home Health Face to Face [email or web address] Results Discharge Labs BLOOD BANK Blood Type O Negative ()?? 06/17/2022 09:41 Antibody Screen Negative ()?? 06/17/2022 09:41 RBC Unit ID [id number] ()?? 06/17/2022 11:45 RBC Available PT ()?? 06/17/2022 11:45 ?? BLOOD COUNT & DIFF WBC 7.7 k/mm3 ()?? 06/17/2022 03:14 RBC 3.32 m/mm3 (Low)?? 06/17/2022 03:14 Hgb 8.1 Gm/dL (Low)?? 06/18/2022 02:19 Hct 27.9 % (Low)?? 06/18/2022 02:19 MCV 71.7 femtoliters (Low)?? 06/17/2022 03:14 MCH 19.9 pg (Low)?? 06/17/2022 03:14 MCHC 27.7 g/dL (Low)?? 06/17/2022 03:14 Platelet Count 246 k/mm3 ()?? 06/17/2022 03:14 RDW-SD 44.4 femtoliters ()?? 06/17/2022 03:14 MPV 9.9 femtoliters ()?? 06/17/2022 03:14 Nucleated RBC (Automated) 0.0 #/100 WBC'S ()?? 06/17/2022 03:14 Abs. NRBC 0.0 k/mm3 ()?? 06/17/2022 03:14 Abs. Neut 5.2 k/mm3 ()?? 06/16/2022 12:42 Abs. Lymph 1.4 k/mm3 ()?? 06/16/2022 12:42 Abs. Emanuel 0.6 k/mm3 ()?? 06/16/2022 12:42 Abs. Eo 0.3 k/mm3 ()?? 06/16/2022 12:42 Abs. Baso 0.1 k/mm3 ()?? 06/16/2022 12:42 Neut % 68.5 % ()?? 06/16/2022 12:42 Lymph % 18.7 % ()?? 06/16/2022 12:42 Emanuel % 8.2 % ()?? 06/16/2022 12:42 Eos % 3.6 % ()?? 06/16/2022 12:42 Baso % 0.7 % ()?? 06/16/2022 12:42 Retic Count 1.4 % ()?? 06/17/2022 03:14 Retic Count Corrected 0.7 % (Low)?? 06/17/2022 03:14 Retic Production Index 0.4 % (Low)?? 06/17/2022 03:14 Imm Gran 0.3 % ()?? 06/16/2022 12:42 Abs. Imm Gran 0.0 k/mm3 ()?? 06/16/2022 12:42 ? CARDIAC Nt-Probnp 77 pg/mL ()?? 06/16/2022 12:42 High Sensitivity Troponin (HSTnT) 19 ng/L ()?? 06/16/2022 14:50 ?? CHEM GENERAL Sodium 140 mmol/L ()?? 06/18/2022 02:19 Potassium 4.3 mmol/L ()?? 06/18/2022 02:19 Chloride 103 mmol/L ()?? 06/18/2022 02:19 Bicarbonate Level 27 mmol/L ()?? 06/18/2022 02:19 Anion Gap 10 ()?? 06/18/2022 02:19 Glucose Level 89 mg/dL ()?? 06/18/2022 02:19 Glucose, POC 95 mg/dL ()?? 06/18/2022 12:10 BUN 14 mg/dL ()?? 06/18/2022 02:19 Creatinine-Blood 1.0 mg/dL ()?? 06/18/2022 02:19 Estimated GFR Creatinine 84 ML/MIN/1.73 M2 ()?? 06/18/2022 02:19 Calcium 9.4 mg/dL ()?? 06/18/2022 02:19 Magnesium 1.7 mg/dL ()?? 06/16/2022 12:42 Protein, Total 6.7 Gm/dL ()?? 06/17/2022 03:14 Albumin 4.1 Gm/dL ()?? 06/17/2022 03:14 AG Ratio 1.6 ()?? 06/17/2022 03:14 Alkaline Phosphatase 68 units/L ()?? 06/17/2022 03:14 AST (SGOT) 18 units/L ()?? 06/17/2022 03:14 ALT (SGPT) 11 units/L ()?? 06/17/2022 03:14 Bilirubin, Total 0.2 mg/dL ()?? 06/17/2022 03:14 Vitamin B12 Level 380 pg/mL ()?? 06/17/2022 03:14 Folic Acid Level 22.2 ng/mL ()?? 06/17/2022 03:14 Lactate 1.8 mmol/L ()?? 06/16/2022 12:42 Iron Level 20 mcg/dL (Low)?? 06/16/2022 12:42 Iron Binding Capacity, Unsaturated 477 mcg/dL (High)?? 06/16/2022 12:42 Iron Binding Capacity, Estimated Total 497 mcg/dL ()?? 06/16/2022 12:42 % Iron Saturation 4 % (Low)?? 06/16/2022 12:42 Ferritin Level 8 ng/mL (Low)?? 06/16/2022 12:42 ? COAG INR 1.1 ()?? 06/17/2022 03:14 Protime (PT) 11.2 seconds ()?? 06/17/2022 03:14 ?? ENDOCRINE/TUMOR MARKER TSH 2.68 uIU/mL ()?? 06/17/2022 03:14 ? VIROLOGY Influenza A PCR NEGATIVE ()?? 06/16/2022 12:26 Influenza B PCR NEGATIVE ()?? 06/16/2022 12:26 RSV PCR NEGATIVE ()?? 06/16/2022 12:26 COVID-19 PCR Specimen Source NASAL ()?? 06/16/2022 12:26 COVID-19 PCR Result NEGATIVE ()?? 06/16/2022 12:26 ? _35 minutes spent on discharge * Cathy Orozco LPN: PERFORM Event Display: Patient Education/Instruction Authored Date: [id number] Inpatient Adult Discharge Instructions [address] [address] Name: LATANYA SHERMAN : 1955 Visit: 06/16/2022 11:37:00 Current Date: 06/18/2022 12:48 Account: [id number] Inpatient Adult Discharge Instructions We would like to thank you for allowing us to assist you with your healthcare needs. The following includes patient education materials and information regarding your injury/illness. Our entire staffstrives to provide an excellent experience for our patients and their families. PLEASE ENSURE YOU FOLLOW-UP PER THE INSTRUCTIONS BELOW! ?? YOUR OPINION IS IMPORTANT TO US! Please complete the survey you may receive by mail or email. Your feedback will be used to make improvements to the healthcare experiences of our patients and their families. Surveys are administered by [employer] ?? If further treatment with your primary care physician or another doctor is recommended, it is important for you to keep the appointment. Call your primary care physician or return to the Emergency Department immediately if your condition worsens, fails to improve, or new symptoms develop. If you need to find a doctor, you can call [facility] for a referral at [phone] or toll free at [phone] ([phone]) or log in to [email or web address] ?? You can view and manage your care through the patient portal or by using a health care amparo of your choosing. discoapi is a website that allows you to securely view your medical information including your hospital discharge summary, office visit summaries, medications and follow-up visits. You can also request appointments, renew medications, and request access to your medical information using a health care am[place]o of your choosing, or just ask a question. You can enroll at [email or web address] or register during your next office visit. You have been discharged from [facility], Patient Care Unit: D3B. If you have any questions regarding these instructions after you leave, please call us and we will be happy to assist you. [facility] Your Care Team Attending Physician Anusha Porter MD Discharging Providers Anusha Porter MD Reason for Admission Pt coming from home with c/o fall r/t dizziness. Pt sts dizzy x 2 weeks, fall 2 weeks ago as well. Pt sts he hit his L knee and forehead, denies any pain. Your Diagnosis Pre-syncope Iron deficiency anemia Anxiety and depression Diabetes mellitus Hypertension Abnormal CT scan, neck Abnormal chest x-ray Hyperlipidemia Pre-syncope Tests Performed Below is a partial list of the tests performed during your hospitalization. You may have had other tests and procedures not included in this list. Please discuss all test results with your provider. B12 Vitamin Level Basic Metabolic Panel CBC CBC w/ Differential Comprehensive Metabolic Panel COVID-19, RSV, and Flu A/B, Rapid PCR FERRITIN Folate Level GLUCOSE POC H + H High??Sensitivity??Troponin T INR IRON & TIBC Lactate Level Magnesium Level ProBNP Reticulocyte Ct TSH Type and Screen CT Cervical Spine W/O Contrast CT Head/Brain W/O Contrast XR Chest 2 Views Frontal and Lat Primary Care Provider Name Rolf PARKS Advance Directive Health Care Proxy on File Yes - Health Care Proxy Discharge Vitals Temperature: 97.7 DegF Height: 180 cm Pulse Rate: 83 bpm ?? Respiratory Rate: 17 br/min ?? Systolic Blood Pressure:??140 mm Hg??High ?? Diastolic Blood Pressure:??87 mm Hg??High ?? Oxygen Saturation: 98 % ?? Studies Pending All tests and labs ordered during this hospital stay have been completed unless listed below. Please discuss all pending results with your provider listed above in these instructions. ?? Add On Lab Order CBC COVID-19 (2019 Novel Coronavirus) PCR Pathology Tissue Request () Transfuse RBCs What to do next Instructions From Your Doctor Discharge Orders You Need to Schedule the Following Appointments Follow Up with??Name Rolf PARKS When??Within 1 to 2 weeks Where: ?? Discharge Medications LATANYA SHERMAN :1955 Visit Date:06/16/2022 Medications: Please continue your medications until treatment is completed or stopped by your provider. Medications not listed below should be discontinued. Discuss any questions related to medications with your provider. What How Much When Instructions Next Dose New Docusate-Senna (docusate-senna 50 mg-187 mg oral tablet) 1 tab(s) Oral Twice a day as needed for Constipation Duration: 14 Days Pickup at [place] [address] as needed follow as prescribe ?? New Ferrous Sulfate (ferrous sulfate 325 mg oral enteric coated tablet) 1 tab(s) Oral Daily Pickup at [place] [address] 06/18/22 New Polyethylene Glycol 3350 (MiraLax oral powder for reconstitution) 17 gram Oral Daily dissolve in water before taking ?? Pickup at [place] [address] 06/18/22 Changed Aspirin (aspirin 81 mg oral tablet) 1 tab(s) Oral Daily 06/19/22 Changed Enalapril (enalapril 20 mg oral tablet) 1 tab(s) Oral Daily Duration: 30 Days Pickup at [facility] 3 06/19/22 Changed Metformin (metFORMIN 1000 mg oral tablet) 1 tab(s) Oral Twice a day 06/18/22 evening Changed Simvastatin (simvastatin 40 mg oral tablet) 1 tab(s) Oral Daily at Bedtime 06/18/22 bedtime Unchanged Acetaminophen / Hydrocodone (acetaminophen-hydrocodone 325 mg-5 mg oral tablet) See instructions 1-2 tab By Mouth Every 6 hours (not to exceed 4000 mg acetaminophen per day) ?? see instructions Unchanged Acetaminophen / Hydrocodone (Vicodin 500 mg-5 mg oral tablet) 2 tab(s) Oral 4 times a day 06/18/22 evening Unchanged Clonazepam (clonazePAM 1 mg oral tablet) 1 tab(s) Oral Twice a day Duration: 14 Days 06/18/23 evening Unchanged Clonazepam (clonazepam 2 mg oral tablet) 1 tab(s) Oral Daily at Bedtime 06/18/22 bedtime Unchanged Gabapentin (gabapentin 100 mg oral capsule) 1 capsule Oral Daily Duplicate Unchanged Gabapentin (gabapentin 100 mg oral capsule) 1 capsule Oral Daily in the morning ?? 06/19/22 Unchanged Gabapentin (gabapentin 300 mg oral capsule) 1 capsule Oral Daily at Bedtime 06/18/22 bedtime Unchanged GlipiZIDE (glipizide 10 mg oral tablet) 1 tab(s) Oral Daily 06/19/22 Unchanged Mirtazapine (Remeron 15 mg oral tablet) 1 tab(s) Oral Daily at Bedtime 06/18/22 Pharmacy Information [facility] 3: [address], [place] [id number] [phone] ?? What How Much When Comments Stop Taking Lisinopril (lisinopril 20 mg oral tablet) 1 tab(s) Oral Daily Stop Taking Naproxen (naproxen 500 mg oral tablet) 1 tab(s) Oral Daily Stop Taking Oxycodone / Acetaminophen (Percocet-5/ 325 325 mg-5 mg oral tablet) 1 tab(s) Oral Every 6 hours Duration: 14 Days Stop Taking PEG Electrolyte Solution (PEG-3350 with Electolytes) 240 Milliliter Oral Every 10 minutes <None>May mix with lemon tulalip crystal light ?? Test Results Below is a partial list of the most recent Laboratory test results done prior to this discharge. You may have had other tests and procedures not included in this list. Please discuss all test resultswith your provider. RBC Available - PT (06/17/2022) RBC Unit ID - [id number] (06/17/2022) B12 Vitamin Level (06/17/2022) ???Vitamin B12 Level - 380 pg/mL Basic Metabolic Panel (06/18/2022) ???Sodium - 140 mmol/L???Potassium - 4.3 mmol/L???Chloride - 103 mmol/L???Bicarbonate Level - 27 mmol/L???Anion Gap - 10???Glucose Level - 89 mg/dL???BUN - 14 mg/dL???Creatinine-Blood - 1.0 mg/dL???Estimated GFR Creatinine - 84 ML/MIN/1.73 M2???Calcium - 9.4 mg/dL CBC (06/17/2022) ???WBC - 7.7 k/mm3???RBC - 3.32 m/mm3???Hgb - 6.6 Gm/dL???Hct - 23.8 %???MCV - 71.7 femtoliters???MCH - 19.9 pg???MCHC - 27.7 g/dL???Platelet Count - 246 k/mm3???RDW-SD - 44.4 femtoliters???MPV - 9.9femtoliters???Nucleated RBC (Automated) - 0.0 #/100 WBC'S???Abs. NRBC - 0.0 k/mm3 CBC w/ Differential (06/16/2022) ???WBC - 7.6 k/mm3???RBC - 3.54 m/mm3???Hgb - 7.0 Gm/dL???Hct - 25.7 %???MCV - 72.6 femtoliters???MCH - 19.8 pg???MCHC - 27.2 g/dL???Platelet Count - 274 k/mm3???RDW-SD - 46.1 femtoliters???MPV - 10.3 femtoliters???Nucleated RBC (Automated) - 0.0 #/100 WBC'S???Abs. NRBC - 0.0 k/mm3???Abs. Neut - 5.2 k/mm3???Abs. Lymph - 1.4 k/mm3???Abs. Emanuel - 0.6 k/mm3???Abs. Eo - 0.3 k/mm3???Abs. Baso - 0.1 k/mm3???Neut % - 68.5 %???Lymph % - 18.7 %???Emanuel % - 8.2 %???Eos % - 3.6 %???Baso % - 0.7 %???Imm Gran- 0.3 %???Abs. Imm Gran - 0.0 k/mm3 Comprehensive Metabolic Panel (06/17/2022) ???Sodium - 139 mmol/L???Potassium - 4.2 mmol/L???Chloride - 101 mmol/L???Bicarbonate Level - 28 mmol/L???Anion Gap - 10???Glucose Level - 87 mg/dL???BUN - 21 mg/dL???Creatinine-Blood - 0.9 mg/dL???Estimated GFR Creatinine - 95 ML/MIN/1.73 M2???Calcium - 9.0 mg/dL???Protein, Total - 6.7 Gm/dL???Albumin - 4.1 Gm/dL???AG Ratio - 1.6???Alkaline Phosphatase - 68 units/L???AST (SGOT) - 18 units/L???ALT (SGPT) - 11 units/L???Bilirubin, Total - 0.2 mg/dL COVID-19, RSV, and Flu A/B, Rapid PCR (06/16/2022) ???Influenza A PCR - NEGATIVE???Influenza B PCR - NEGATIVE???RSV PCR - NEGATIVE???COVID-19 PCR Specimen Source - NASAL???COVID-19 PCR Result - NEGATIVE FERRITIN (06/16/2022) ???Ferritin Level - 8 ng/mL Folate Level (06/17/2022) ???Folic Acid Level - 22.2 ng/mL GLUCOSE POC (06/18/2022) ???Glucose, POC - 95 mg/dL H + H (06/18/2022) ???Hgb - 8.1 Gm/dL???Hct - 27.9 % High??Sensitivity??Troponin T (06/16/2022) ???High Sensitivity Troponin (HSTnT) - 19 ng/L INR (06/17/2022) ???INR - 1.1???Protime (PT) - 11.2 seconds IRON & TIBC (06/16/2022) ???Iron Level - 20 mcg/dL???Iron Binding Capacity, Unsaturated - 477 mcg/dL???Iron Binding Capacity, Estimated Total - 497 mcg/dL???% Iron Saturation - 4 % Lactate Level (06/16/2022) ???Lactate - 1.8 mmol/L Magnesium Level (06/16/2022) ???Magnesium - 1.7 mg/dL ProBNP (06/16/2022) ???Nt-Probnp - 77 pg/mL Reticulocyte Ct (06/17/2022) ???Retic Count - 1.4 %???Retic Count Corrected - 0.7 %???Retic Production Index - 0.4 % TSH (06/17/2022) ???TSH - 2.68 uIU/mL Type and Screen (06/17/2022) ???Blood Type - O Negative???Antibody Screen - Negative Allergies (NKA means No Known Allergies) NKA Problems Active Problems??(8) Anxiety and depression?? Cervical myelopathy?? Chronic low back pain?? Diabetes mellitus?? Hyperlipidemia?? Hypertension?? Insomnia?? Knee pain, chronic?? Education Materials Below is the list of Educational Leaflet Providered with your Discharge Instructions. Anemia, Iron-Deficiency (Adult)?? Constipation (Adult)?? Understanding Hemorrhoids?? Hemorrhoids Discharge Instructions?? Valuables and Belongings I fully understand and agree that [facility] accepts no responsibility for all my personal property including clothing, toilet articles, radios, jewelry, dentures, hearing aids, rings, money, or any other property that is in my possession or is brought to me after admission. I understand certain valuables may be placed in a hospital safe for a short period of time. I understand that the hospital is not liable for loss or damage due to accident, fire, or other natural occurrence while said property is in the safe. I accept full responsibility for any personal property that I keep with me, and will not hold the hospital responsible in case of loss or disappearance. I acknowledge that i have been encouraged to send valuables and belongings home. ?? Date for Pt to Sign Valuables/Belongings: 06/16/22 16:25:00 ?? Other Discharge Information ? Pulmonary Rehab Status?? Pulmonary Rehab Discharge Status?? Respiratory Rate: 17 br/min ? Common Emergency Awareness Tips IS IT A STROKE? Act FAST and Check for these signs: FACE Does the face look uneven? ARM Does one arm drift down? SPEECH Does their speech sound strange? TIME Call at any sign of stroke ?? Heart Attack Signs Chest discomfort: Most heart attacks involve discomfort in the center of the chest and lasts more than a few minutes, or goes away and comes back. It can feel like uncomfortable pressure, squeezing, fullness or pain. Discomfort in upper body: Symptoms can include pain or discomfort in one or both arms, back, neck, jaw or stomach. Shortness of breath: With or without discomfort. Other signs: Breaking out in a cold sweat, nausea, or lightheaded. Remember, MINUTES DO MATTER. If you experience any of these heart attack warning signs, call to get immediate medical attention! ?? Smoking can increase your chances of developing chronic health problems and can cause harmful effects to other family members in your house. If you smoke, you are strongly encouraged to quit. Please call [facility] at [phone] or [phone] ([phone]) or log in to [email or web address] for referrals to smoking cessation programs. ?? The National Suicide Prevention Hotline is available 23/11 if you or someone you know needs to find a reason to keep living. By calling 4-712-662-TSB (9832) you'll be connected to a skilled, trained counselor at a crisis center in your area. INPATIENT DISCHARGE INSTRUCTIONS SIGNATURE PAGE LATANYA SHERMAN Location:[facility] Registration Date and Time:06/16/2022 11:37 EST Primary Care Physician: Name Rolf PARKS, LATANYA AMARO, have received the above patient education materials/instructions and have verbalized understanding. If ambulance or transport services are being used I further acknowledge being givena choice of service. ?? If you need to contact me, please call me at this number: . Patient/University Demonstrator Name: Patient/University Demonstrator Signature: Relationship to Patient: Witness Name/Signature: Date: * Anusha Porter MD: PERFORM Event Display: Patient Education Leaflets Authored Date: [id number] Anemia, Iron-Deficiency (Adult) ?? [id number] Anemia por deficiencia de barbara (adulto) Los gl??bulos rojos llevan el ox??dakota a los tejidos de garcia cuerpo. La anemia es america afecci??n que hace que usted tenga muy pocos gl??bulos rojos. Para generar gl??bulos rojos, necesita barbara. La anemia hace que usted se sienta cansado y sin fuerzas. Si la anemia se vuelve grave, garcia piel se lizbeth?? p??harris. Es posible que sienta que le falta el aire o que tiene dolor en el pecho despu??s de hacer actividad f??marley. Otros s??ntomas: ??? Simi de mona, especialmente cuando hace actividad f??marley ??? Frecuencia card??melquiades acelerada ??? Sensaci??n puls??til o zumbido en los o??dos ??? Debilidad general, somnolencia, o mareo ??? U??as quebradizas o ca??da del john ??? Calambres en las piernas cuando hace actividad f??marley ??? Piernas inquietas ??? Impulso por comer hielo o cosas que no son alimentos, tales cecily papel Garcia anemia se debe a que no tiene suficiente barbara en garcia cuerpo. [place] puede deberse a distintas cosas: ??? P??rdida de augusto causada por per??odos menstruales abundantes o por sangrado en el est??eleazar o los intestinos. ??? Cirug??a mayor o traumatismo f??sico ??? No comer suficientes alimentos que contengan barbara ??? Incapacidad para absorber el barbara de los alimentos que come ??? Embarazo Si tiene muy pocos gl??bulos rojos, garcia proveedor de atenci??n m??dica puede recetarle un suplementode barbara. La anemia suele corregirse al cabo de dos o meche meses de tratamiento con suplementos dehierro. En los casos graves de anemia, se necesita america transfusi??n de augusto para aliviar r??pidamente los s??ntomas y darles m??s ox??dakota a las c??lulas. Cuidados en el hogar Siga estas recomendaciones para cuidarse en garcia casa: ??? Coma alimentos ricos en barabra. [place] reforzar?? la cantidad de barbara almacenado en garcia cuerpo. Es america forma natural de aumentar la cantidad dec??lulas sangu??neas. Buenas chung de barbara son, por ejemplo, la carne de res, el h??gado, las aves de villarreal, el pescado, la espinaca y otras verduras de hoja cookie oscura, los granos integrales,los frijoles y los padmini secos. ??? No se sobreexija. ??? Hable con garcia proveedor antes de viajar por aire o de viajar a grandes altitudes. ?? Visita de seguimiento Joy el seguimiento con garcia proveedor en 2??meses o seg??n se lo indique ashley. Es importante realizarse otra prueba de recuento de c??lulas sangu??neas para asegurarse de que la anemia est?? mejorando. ?? Cu??ndo llamar al 911 Llame al 911 si ocurre algo de lo siguiente: ??? Falta de aire o dolor en el pecho ??? Mareos o desmayos ??? Tiene augusto en el v??shana o heces de color negruzco o rojizo? Last Reviewed Date: 2021 ?? [id number] [email or web address]. Todos los derechos reservados. Esta informaci??n no pretende sustituir la atenci??n m??dica profesional. S??lo garcia m??dico puede diagnosticar y tratar un problema de jcarlos. ?? * Anusha Porter MD: PERFORM Event Display: Patient Education Leaflets Authored Date: [id number] Constipation (Adult) ?? [id number] Estre??imiento (adultos) Si padece de estre??imiento, significa que evacua latia intestinos con menos frecuencia que lo habitual. A menudo, las heces se vuelven muy duras y dif??ciles de evacuar. El estre??imiento es muy com??n. Afecta a victor hugo todas las personas en alg??n momento de garcia daylin. Losh??bitos intestinales trever??an de america persona a otra y, por ello, lo que es estre??imiento en america puede no serlo en otra. El proveedor de atenci??n m??dica puede hacer algunas pruebas para diagnosticar el estre??imiento. Depender?? de los hallazgos cuando lo examinen. Los siguientes son algunos s??ntomas del estre??imiento: ??? Dolor abdominal ??? Hinchaz??n abdominal ??? V??mitos ??? Evacuaciones dolorosas ??? Comez??n, hinchaz??n, sangrado o dolor alrededor del ano Causas El estre??imiento puede tener muchas causas. Por ejemplo: ??? Alimentaci??n con poca fibra ??? Exceso de l??cteos ??? No beber suficiente cantidad de l??quidos ??? Falta de ejercicio o de actividad f??marley (especialmente en los adultos mayores) ??? Cambios en el estilo de daylin o la rutina, cecily embarazos, envejecimiento, trabajo y viajes ??? Uso frecuente o inadecuado de laxantes ??? Dejar pasar el momento en que siente la necesidad de evacuar los intestinos o demorarlo ??? Medicamentos, cecily algunos analg??sicos recetados, barbara, anti??cidos, algunos antidepresivos y suplementos de calcio ??? Afecciones cecily el s??ndrome del intestino irritable, obstrucciones intestinales, derrame cerebral, diabetes, enfermedad de la tiroides, Parkinson, hemorroides y c??ncer de colon ?? Complicaciones Las siguientes son algunas complicaciones posibles del estre??imiento: ??? Hemorroides ??? Sangradorectal por hemorroides o fisuras anales (desgarros en la piel) ??? Hernias ??? Estre??imiento cr??hernesto ??? Impactaci??n fecal, america forma grave de estre??imiento en la que hay america gran cantidad de heces en el recto que no se puede evacuar ??? Obstrucci??n o perforaci??n de los intestinos ?? Cuidados en el hogar Consulte a garcia proveedor de atenci??n m??dica antes de comenzar un tratamiento. Siga esta recomendaci??n especialmente si tiene otra afecci??n m??dica, rashid medicamentos recetados o es un adulto mayor. El tratamiento a menudo requiere cambios en el estilo de daylin. Tambi??n es posible que necesite administrarse medicamentos. Garcia proveedor de atenci??n m??dica le dir?? qu?? tipo de tratamiento es mejor para usted. Siga las recomendaciones a continuaci??n para prevenir ashley problema en el futuro. ?? Cambios en el estilo de daylin Estos cambios en el estilo de daylin pueden ayudar a prevenir el estre??imiento: ??? Dieta. Coma alimentos con alto contenido de fibra, con frutas y verduras frescas, y reduzca la ingesta de productos l??cteos, kalpesh y alimentos procesados ??? L??quidos. Es importante que tome suficientes l??quidos todos los d??as. Nissa abundante agua cuando coma m??s fibra. Hable con garcia proveedor de atenci??n m??dica si lleva america alimentaci??n que limite la cantidad de l??quidos. ??? Actividad f??marley regular. Hable con garcia proveedor de atenci??n m??dica franc. ?? Medicamentos [place] todos los medicamentos seg??n le indiquen. Algunos laxantes son seguros solo si los rashid de vez en cuando. Otros pueden tomarse de manera frecuente. Los laxantes no causan dependencia en los intestinos, sino que tratan los s??ntomas. Por eso, podr??a estre??irse nuevamente si no incorpora otros cambios. Hable con garcia proveedor de atenci??n m??dica o farmac??utico si tiene dudas. Los analg??sicos recetados pueden causar estre??imiento. Si rashid ashley tipo de medicamento, preguntea garcia proveedor de atenci??n m??dica si es recomendable usar un ablandador de heces. Los siguientes son algunos medicamentos que puede pavithra para tratar el estre??imiento: ??? Suplementos de fibra ??? Ablandadores de heces ??? Laxantes ??? Enemas ??? Supositorios rectales ?? Visita de seguimiento Programe america visita de control con garcia proveedor de atenci??n m??dica si latia s??ntomas no se alivianen los d??as siguientes. Pasquale vez deba realizarse otros an??lisis o lizbeth a un especialista. ?? Cu??ndo llamar al?? 911 Llame al?? 911 si ocurre algo de lo siguiente: ??? Dificultad para respirar ??? Abdomen r??gido condolor adriana al tocarlo ??? Cantidades grandes de augusto en las heces ??? Confusi??n ??? Desmayos o p??rdida del conocimiento ??? Frecuencia card??melquiades acelerada ??? Dolor de pecho ?? Cu??ndo buscar atenci??n m??dica Llame a garcia proveedor de atenci??n m??dica de inmediato ante cualquiera de las siguientes situaciones: ??? Fiebre de 100.4?F (38?C) o superior, o seg??n lo indicado por garcia proveedor de atenci??nm??dica ??? Imposibilidad de retomar las evacuaciones intestinales normales ??? Dolor en el abdomeno en la espalda que empeora ??? N??useas o v??mitos ??? Hinchaz??n abdominal ??? Cantidades francisco??as de augusto en las heces ??? Heces alquitranadas o negras ??? P??rdida de peso involuntaria ??? Debilidad ?? Last Reviewed Date: 2021 ?? [id number] [email or web address]. Todos los derechos reservados. Esta informaci??n no pretende sustituir la atenci??n m??dica profesional. S??lo garcia m??dico puede diagnosticar y tratar un problema de jcarlos. ?? * Anusha Porter MD: PERFORM Event Display: Patient Education Leaflets Authored Date: [id number] Understanding Hemorrhoids ?? 25022 Qu?? son las hemorroides Los tejidos de las hemorroides son ???cojines?? de vasos sangu??neos que se hinchan ligeramente shemar la evacuaci??n. El exceso de presi??n sobre el conducto anal puede causar que estos tejidos permanezcan dilatados (agrandados). Pueden inflamarse y causar s??ntomas. [place] puede suceder tanto conlas hemorroides que se encuentran dentro del conducto anal cecily en las externas. Partes del conducto anal Las partes del conducto anal son las siguientes: ??? El tejido hemorroidal interno se encuentra en la bull superior del conducto anal. ??? El recto es la porci??n final del colon y mide varias pulgadas. Aqu?? se almacenan las heces antes de la evacuaci??n. ??? Los esf??nteres anales son m??sculos con forma de anillo que se expanden y contraen para controlar la abertura del ano. ??? El tejido hemorroidal externo est?? situado debajo de la piel anal. ??? El ano es el conducto entre el recto y el exterior del cuerpo. ?? Tejido hemorroidal normal Los tejidos hemorroidales desempe??an america funci??n fundamental en la eliminaci??n de desechos del cuerpo. Los alimentos pasan desde el est??eleazar a andre??s de los intestinos. Luego, el desecho (heces)recorre el colon hasta llegar al recto. Se almacena en el recto hasta el momento de ser expulsado a andre??s del ano. Shemar la evacuaci??n, las hemorroides se hinchan con augusto y aumentan ligeramente de gunner??o. Esta dilataci??n ayuda a proteger y acolchonar el conducto anal mientras se expulsan las heces del cuerpo. [place] vez terminada la evacuaci??n, los tejidos minh de hincharse y vuelven a la normalidad. ?? Hemorroides problem??veronika El efecto de la presi??n, ya sea por hacer fuerza al defecar o por otros factores, puede impedir que los tejidos hemorroidales se deshinchen. Si los tejidos hinchados est??n dentro del conducto anal,se denominan hemorroides internas. Si est??n alrededor de la abertura del ano, reciben el nombre de hemorroides externas. Los s??ntomas dependen de la ubicaci??n de la hemorroide. ??? Las hemorroides internas suelen aparecer por grupos alrededor de la pared del conducto anal. Suelen ser indoloras, davy pueden sobresalir fuera del ano (prolapso) debido al exceso de fuerza o presi??n de heces duras. [place] vez terminada la evacuaci??n, pueden reducirse (regresar al interior del cuerpo). Las hemorroides internas suelen sangrar y a veces tambi??n producen mucosidad. ??? Las hemorroides externas est??n situadas en la abertura del ano, tamera debajo de la piel. Estos tejidos muy jazmyne vez causan problemas, a menos que formen america trombosis (un co??gulo de augusto). Cuando esto sucede, puede aparecer un bulto kari y azulado. [place] hemorroide con trombosis tambi??n provoca dolor intenso y repentino. Con el tiempo, el co??gulo puede desaparecer por garcia cuenta. A veces, esto kanu un ???ap??ndice cut??shorty?? de tejido estirado por el co??gulo. ?? S??ntomas de hemorroides Los s??ntomas de hemorroides pueden incluir los siguientes: ??? Dolor o sensaci??n de ardor ??? Sangrado shemar la evacuaci??n ??? [place] del tejido al exterior del ano ??? Sensaci??n de taponamiento o hinchaz??n en el recto shemar la evacuaci??n ??? Comez??n alrededor del ano ??? Secreci??n de mucosidad del ano ?? Causas de las hemorroides Las hemorroides no se deben a un solo factor. Sin embargo, victor hugo siempre son causadas por ejercer demasiada presi??n sobre el conducto anal. Esta presi??n puede ser el resultado de lo siguiente: ??? Estre??imiento cr??hernesto (continuo) ??? Hacer fuerza shemar la evacuaci??n ??? Pasar demasiado tiemposentado en el inodoro ??? Hacer ejercicio en??rgico o levantar objetos muy pesados ??? Embarazo y parto ??? Envejecimiento ??? Diarrea ?? Last Reviewed Date: 2018 ?? 1992-2223 [email or web address]. Todos los derechos reservados. Esta informaci??n no pretende sustituir la atenci??n m??dica profesional. S??lo garcia m??dico puede diagnosticar y tratar un problema de jcarlos. ?? * Evangelina , CIS S: TRANSCRIBE Osmin Ramirez MD: VERIFY Kevin Marques MD: SIGN Event Display: Result: Authored Date: [id number] Chest 2 Views Frontal and Lat Indication: Dizziness, shortness of breath. COMPARISON: None. FINDINGS: LINES AND TUBES: None. LUNGS AND PLEURA: Slight reticular opacities throughout the lungs. Mild patchy opacities of the bilateral mid and lower lungs. No pleural effusion. No pneumothorax. HEART, MEDIASTINUM AND MAURICE: Mild prominence of the cardiac silhouette. Normal mediastinal and hilar contour. Limited assessment on this AP view. BONES AND SOFT TISSUES: Mild degenerative changes of the spine. Partially visualized cervical and thoracic spine fusion hardware. IMPRESSION: Slight reticular opacities throughout the lungs. In the setting of cardiomegaly this may represent pulmonary edema. Underlying contusion or aspiration pneumonia cannot be excluded. Mild patchy opacities in the bilateral mid and lower lungs, likely some overlying atelectasis, however, pneumonia cannot be completely excluded. I have personally reviewed the images and I agree with this report. WSN: [id number] Ordering Physician: Carlita Luciano Dictated By: Kevin Marques MD Dictated Date/Time: 06/16/22 3:08 pm Reviewed By: Osmin Ramirez MD Signed By: Osmin Ramirez MD Signed Date/Time: 06/16/22 3:13 pm Transcribed By: TOBI Transcribed Date/Time: 06/16/22 2:[address] Cervical spine WO contrast * BHSPowerscribe , CIS S: TRANSCRIBE Nga Moran MD: VERIFY Event Display: Result: Authored Date: [id number] CT Head/Brain W/O Contrast, CT Cervical Spine W/O Contrast INDICATION: Headache and dizziness status post fall. COMPARISON: CT cervical spine, 12/16/2011. No prior imaging of the head is available for comparison. TECHNIQUE: Incremental CT without contrast through the head was formatted in axial and coronal planes. Spiral CT without contrast through the cervical spine was formatted in 3 planes. Weight-based protocol using automatic tube modulation was performed to optimize scan parameters. CTDIvol Body: 18.70 mGy, DLP Body: 522 mGy*cm. CTDIvol Head: 39.80 mGy, DLP Head: 672 mGy*cm. FINDINGS: HEAD: Brain: The 4th ventricle is midline. Posterior fossa structures are grossly unremarkable. There is mild prominence of the ventricles and sulci with a cavum septum pellucidum noted. There is no hemorrhage, midline shift, or mass effect. Cintron-white differentiation is preserved without evidence of acute confluent lobar infarction. No extra-axial collection is seen. There is mild calcification of the carotid siphons. Orbits, paranasal sinuses and mastoids: The paranasal sinuses and mastoid air cells are clear. The orbits and globes are intact. Calvarium and soft tissues: The calvarium is intact. No fractures or bony lesions. The extracranialsoft tissues are unremarkable. CERVICAL SPINE: Bony structures: Postoperative changes are seen from a laminectomy from C5-C7. There has been posterior fusion from C4-T1 utilizing bilateral lateral mass screws from C4-C7 and bilateral pedicle screws at T1. Bilateral interconnecting vertical rods are seen, though there is a fracture through the right-sided vertical lopez at C7 (sagittal series 310, image 36). The right T1 screw traverses the costovertebral joint. There is straightening of the normal lordosis without subluxation. Vertebral body heights are preserved. C1-2 articulation and craniocervical junction are normal. There is no definite acute fracture. 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 The spinal canal is obscured at the levels of hardware due to streak artifact. There is severe bilateral neural foraminal stenosis at C3-4 due to uncovertebral spurring. Soft tissues and lung apices: The soft tissues are unremarkable. The paraseptal emphysematous changes are seen in the lung apices. IMPRESSION: 1. No evidence of acute traumatic injury to the head or cervical spine. 2. Postoperative changes are seen in the cervical spine with fracture through the right-sided vertical lopez at C7, of indeterminate age. WSN: [id number] Ordering Physician: Carlita Luciano Dictated By: Nga Moran MD Dictated Date/Time: 06/16/22 1:22 pm Reviewed By: Nga Moran MD Signed By: Nga Moran MD Signed Date/Time: 06/16/22 1:22 pm Transcribed By: TOBI Transcribed Date/Time: 06/16/22 1:[address] Head WO contrast * BHSPcholo , CHARLIE S: TRANSCRIOANH Moran MD , Nga Sylvester: VERIFY Event Display: Result: Authored Date: [id number] CT Head/Brain W/O Contrast, CT Cervical Spine W/O Contrast INDICATION: Headache and dizziness status post fall. COMPARISON: CT cervical spine, 12/16/2011. No prior imaging of the head is available for comparison. TECHNIQUE: Incremental CT without contrast through the head was formatted in axial and coronal planes. Spiral CT without contrast through the cervical spine was formatted in 3 planes. Weight-based protocol using automatic tube modulation was performed to optimize scan parameters. CTDIvol Body: 18.70 mGy, DLP Body: 522 mGy*cm. CTDIvol Head: 39.80 mGy, DLP Head: 672 mGy*cm. FINDINGS: HEAD: Brain: The 4th ventricle is midline. Posterior fossa structures are grossly unremarkable. There is mild prominence of the ventricles and sulci with a cavum septum pellucidum noted. There is no hemorrhage, midline shift, or mass effect. Cintron-white differentiation is preserved without evidence of acute confluent lobar infarction. No extra-axial collection is seen. There is mild calcification of the carotid siphons. Orbits, paranasal sinuses and mastoids: The paranasal sinuses and mastoid air cells are clear. The orbits and globes are intact. Calvarium and soft tissues: The calvarium is intact. No fractures or bony lesions. The extracranialsoft tissues are unremarkable. CERVICAL SPINE: Bony structures: Postoperative changes are seen from a laminectomy from C5-C7. There has been posterior fusion from C4-T1 utilizing bilateral lateral mass screws from C4-C7 and bilateral pedicle screws at T1. Bilateral interconnecting vertical rods are seen, though there is a fracture through the right-sided vertical lopez at C7 (sagittal series 310, image 36). The right T1 screw traverses the costovertebral joint. There is straightening of the normal lordosis without subluxation. Vertebral body heights are preserved. C1-2 articulation and craniocervical junction are normal. There is no definite acute fracture. 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 The spinal canal is obscured at the levels of hardware due to streak artifact. There is severe bilateral neural foraminal stenosis at C3-4 due to uncovertebral spurring. Soft tissues and lung apices: The soft tissues are unremarkable. The paraseptal emphysematous changes are seen in the lung apices. IMPRESSION: 1. No evidence of acute traumatic injury to the head or cervical spine. 2. Postoperative changes are seen in the cervical spine with fracture through the right-sided vertical lopez at C7, of indeterminate age. WSN: [id number] Ordering Physician: Carlita Luciano Dictated By: Nga Moran MD Dictated Date/Time: 06/16/22 1:22 pm Reviewed By: Nga Moran MD Signed By: Nga Moran MD Signed Date/Time: 06/16/22 1:22 pm Transcribed By: TOBI Transcribed Date/Time: 06/16/22 1:11 pm Patient Care team information Care Team Personnel Name: Marily Clarke RN Position: [facility] RN Member Role: Primary Care Nurse Name: Rolf Gamble MD Position: [facility] Outreach Member Role: PCP Address: Address: [address] [place] [address] Name: Danuta Espino RN Position: [facility] RN Member Role: Primary Care Nurse Name: Cathy Orozco LPN Position: [facility] RN Member Role: Primary Care Nurse Name: Carlita Luciano MD Position: [facility] Resident Member Role: ED Resident Address: Address: [address] [place] [address]- Name: Ashley Hernandez Position: [facility] ED RN W/OE and Tasks Member Role: Patient Care Provider Name: Paula Lang RN Position: [facility] ED RN W/OE and Tasks Member Role: Patient Care Provider Name: Shakeel Marie MD Position: [facility] ED Medicine MD Member Role: ED Attending Physician Address: Address: [address] [place] [address]- Name: Dionicio Hernadez Position: [facility] ED TA [facility] Member Role: Patient Care Provider Name: Lashaun Ross Position: [facility] ED OA Charge Member Role: ED Associate Care Team Related Persons Name: PRITESH SHERMAN
--- OUTSIDE RECORDS SUMMARY | 2022-07-29 13:05 | XMS_ITS | Continuity of Care Document ---
Author Name Unknown Organization [facility] Address [address] [place] [id number]- Care Team Providers Care Broke Beater Machine Operator Name Role Phone Name Rolf PARKS Primary Care Physician [phone] Encounter [facility] Date(s): 06/19/22 - 07/19/22 [facility] [address] [place] [id number]- Allergies, Adverse Reactions, Alerts No Known Allergies [...] 0 Refills, Maintenance, 06/18/22 12:42:00 EST, Tablet, [facility], Partial fill upon patient request if the prescription is for a schedule II opioid drug., 180, cm, 06/18/22 12:15:00 EST, H... Start Date: 06/18/22 Stop Date: 07/18/22 Status: Ordered ferrous sulfate 325 mg oral enteric coated tablet 325 mg, 1, tablet, By Mouth, Daily, # 30 tablet, Refills 0, Tot. Refills 0, Maintenance, 06/18/22 12:44:00 EST, Route to Pharmacy Electronically, [facility], Partial fill upon patient request if [...] Maintenance, 03/23/17 18:52:40, Route to Pharmacy Electronically, [id number], [facility] [id number] Start Date: 03/23/17 Status: Ordered gabapentin 300 mg oral capsule 300 mg, 1, capsule, By Mouth, Daily at bedtime, # 30 capsule, Refills 2, Tot. Refills 2, Maintenance, 03/23/17 18:53:21, Route to Pharmacy Electronically, [id number], [facility] [id number] Start Date: 03/23/17 Status: Ordered glipizide 10 mg oral tablet 1 tablet = 10 mg, By Mouth, Daily, # 30 tablet, 0 Refills, Maintenance, Tablet Start Date: 12/25/11 Status: Ordered metFORMIN 1000 mg oral tablet 1 tablet = 1,000 mg, By Mouth, 2 times a day, # 60 tablet, 5 Refills, Maintenance, 03/24/17 16:56:54, Tablet Start Date: 03/24/17 Status: Ordered Remeron 15 mg oral tablet 1 tablet = 15 mg, By Mouth, Daily at bedtime, # 30 tablet, 0 Refills, Maintenance, Tablet Start Date: 12/25/11 Status: Ordered simvastatin 40 mg oral tablet 40 mg, 1, tablet, By Mouth, Daily at bedtime, # 30 tablet, Refills 0, Tot. Refills 0, Maintenance, 03/24/17 16:57:54, Route to Pharmacy Electronically, [id number], [facility] [id number] Start Date: 03/24/17 Status: Ordered Vicodin 500 [...] Confirmed Active Anxiety and depression Confirmed Active Social History Social History Type Response Smoking Status 10 or more cigarette s (1/2 pack or more)/day in last 30 days entered on: 06/16/22 Sex Patient Care team information Care Team Personnel Name: Marily Clarke RN Position: S RN Member Role: Primary Care Nurse Name: Rolf Gamble MD Position: S Outreach Member Role: PCP Address: Address: [address] [place] [address] Name: Danuta Espino RN Position: S RN Member Role: Primary Care Nurse Name: Cathy Orozco LPN Position: S RN Member Role: Primary Care Nurse Care Team Related Persons Name: PRITESH SHERMAN
--- OUTSIDE RECORDS SUMMARY | 2022-07-29 13:05 | XMS_ITS | Continuity of Care Document ---
Author Name Unknown Organization [facility] Address [address] [place] [phone]- Care Team Providers Care Filteration Operator Name Role Phone Name Rolf PARKS Primary Care Physician Encounter [facility] Date(s): 05/24/19 - 09/02/19 [facility] [address] [place] [id number]- [facility] Attending Physician: Yajaira Maguire DO Admitting Physician: Yajaira Maguire DO Referring Physician: Name Rolf PARKS Allergies, Adverse Reactions, Alerts Substance Reaction Severity [...] Maintenance, 03/23/17 18:52:40, Route to Pharmacy Electronically, [id number], [email or web address] [id number] Start Date: 03/23/17 Status: Ordered gabapentin 300 mg oral capsule 300 mg, 1, capsule, By Mouth, Daily at bedtime, # 30 capsule, Refills 2, Tot. Refills 2, Maintenance, 03/23/17 18:53:21, Route to Pharmacy Electronically, [id number], [email or web address] [email or web address] Start Date: 03/23/17 Status: Ordered glipizide 10 mg oral tablet 1 tablet = 10 mg, By Mouth, Daily, # 30 tablet, 0 Refills, Maintenance, Tablet Start Date: 12/25/11 Status: Ordered lisinopril 20 mg oral tablet 20 mg, 1, tablet, By Mouth, Daily, # 30 tablet, Refills 5, Tot. Refills 5, Maintenance, 03/24/17 16:57:27, Route to Pharmacy Electronically, [id number], [email or web address] Start Date: 03/24/17 Status: Ordered metFORMIN 1000 [...] 0, 06/30/07 8:04:17, <None>May mix with lemon [place] crystal light, Print NORBERT Number, 71, Constant [...] Maintenance, 03/24/17 16:57:54, Route to Pharmacy Electronically, [id number], [facility] [address] Start Date: 03/24/17 Status: Ordered Vicodin 500 [...]
[2022-07-29] MEDS: Albuterol Sulfate 90 MCG 8 GM INHALER 2 PUFF INHALE (13:10)
[2022-07-29] MEDS: methylPREDNISolone Sod Succ 125 MG/2 ML VIAL 60 MG IM (13:11)
[2022-07-29 13:14] LABS: MANUAL DIFF FLAG NO
[2022-07-29 13:20] LABS: VBG Base Excess 1.1 mmol/L; VBG HCO3 26 mmol/L (22-26); VBG pCO2 42 mmHg; VBG pH 7.39 (7.32-7.43); VBG pO2 43 mmHg
[2022-07-29 13:20] LABS: Venous Blood Gas Refer to POC result
[2022-07-29 13:24] LABS: Basophils Percent Auto 0.3 % (0-2); Eosinophils Percent Auto 0.1 % (0-4); Hematocrit 32.5 % (42.0-52.0); Hemoglobin 9.3 g/dl (14.0-18.0); Imm Gran Abs Auto 0.03 X10*3/uL (0.00-0.03); Imm Gran Pct Auto 0.4 % (0.0-0.4); Lymphocytes Absolute Auto 0.7 X10*3/uL (1.2-4.9); Lymphocytes Percent Auto 10.2 % (20-40); Mean Corpuscular HGB Conc 28.6 g/dl (31.0-36.0); Mean Corpuscular Hemoglobin 22.7 pg (27.0-33.0); Mean Corpuscular Volume 79.5 fL (80.0-98.0); Mean Platelet Volume 10.3 fL (9.4-12.4); Monocytes Absolute Auto 0.8 X10*3/uL (0.1-1.2); Monocytes Percent Auto 11.6 % (2-11); Neutrophils Absolute Auto 5.5 x10*3/uL (2.0-8.3); Neutrophils Percent Auto 77.4 % (45-73); Platelet Count 210 X10*3/uL (160-400); Red Blood Count 4.09 X10*6/uL (4.60-5.80); White Blood Count 7.1 X10*3/uL (4.8-10.8)
[2022-07-29 13:49] LABS: Troponin-I High Sensitivity 3.9 ng/L (<3.5-35.0)
[2022-07-29 13:50] LABS: Alanine Aminotransferase 19 U/L (0-40); Albumin Level 4.3 g/dL (3.5-5.0); Alkaline Phosphatase 62 U/L (39-117); Anion Gap 15 (12-20); Aspartate Amino Transferase 27 U/L (5-37); Bilirubin Total 0.2 mg/dL (0.0-1.0); Blood Urea Nitrogen 21 mg/dL (9-16); Calcium 9.2 mg/dL (8.4-10.2); Carbon Dioxide 26 mmol/L (22-29); Chloride 100 mmol/L (96-108); Creatinine Clr Calc Pharmacy 74.4; Estimated Glomerular Filt Rate > 60; Glucose Random 165 mg/dL (60-115); Magnesium 1.6 mg/dL (1.6-2.6); Potassium 4.2 mmol/L (3.3-5.1); Sodium 137 mmol/L (135-145); Total Protein 7.4 g/dL (6.5-8.0)
--- NOTE | 2022-07-29 14:49 | PC.NURSE ---
pt medicated per MAR, pt reporting some improvement in breathing.
== END 2022-07-29 14:51 | disposition home or self-care (01) ==
PROVIDERS: Physician Assistant Medical; Emergency Provider Emergency Medicine; PCP Internal Medicine Geriatric Medicine
DX: U07.1 COVID-19 (principal); R07.89 Other chest pain; R05.9 Cough, unspecified; E11.9 Type 2 diabetes mellitus without complications; I10 Essential (primary) hypertension; Z79.899 Other long term (current) drug therapy
CPT/HCPCS: 36415; 71046; 80053; 82803; 83735; 84484; 85025; 93005; 96372; 99284; J2930

== ENCOUNTER 2022-08-18 16:35 | Outpatient (REF) | payer MEDICARE, MEDICAID, SELFPAY ==
--- NOTE | ~2022-08-18 | XR_ITS ---
EXAMINATION: XR BILATERAL KNEES CLINICAL INFORMATION: Reason for Exam CHRONIC KNEE PAIN COMPARISON: Knee radiographs 03/23/2019 and 03/01/2019 TECHNIQUE: 4 views of the bilateral knees FINDINGS: RIGHT KNEE: No acute fracture or dislocation. Moderate degenerative changes of the knee worst involving the medial compartment with there is mild loss of joint space slightly progressed from prior with medial and patellofemoral compartment osteophytes and quadriceps tendon enthesopathy. Small suprapatellar joint effusion. Soft tissues are unremarkable. LEFT KNEE: No acute fracture or dislocation. Moderate degenerative changes of the knee with loss of lateral greater than medial compartment joint space, tricompartmental osteophytes and quadriceps tendon enthesopathy, possibly minimally progressed. 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 Few tiny osseous fragments within the tibiofemoral joint space which may reflect loose bodies measuring up to 5 mm. Small suprapatellar joint effusion. Soft tissues are unremarkable. XR/XR knee RT 4V IMPRESSION: * No acute osseous abnormality. * Moderate degenerative changes of the knees, slightly progressed from prior. Small suprapatellar joint effusions.
== END 2022-08-18 16:36 | disposition home or self-care (01) ==
LOC: HO.XRAY 16:35
PROVIDERS: PCP Internal Medicine Geriatric Medicine; Visit Provider Internal Medicine Geriatric Medicine
DX: M17.11 Unilateral primary osteoarthritis, right knee (principal)
CPT/HCPCS: 73564

== ENCOUNTER 2022-08-19 16:29 | Outpatient (REF) | payer MEDICARE, MEDICAID, SELFPAY ==
--- NOTE | ~2022-08-19 | XR_ITS ---
EXAMINATION: XR BILATERAL KNEES CLINICAL INFORMATION: Reason for Exam CHRONIC KNEE PAIN COMPARISON: Knee radiographs 03/23/2019 and 03/01/2019 TECHNIQUE: 4 views of the bilateral knees FINDINGS: RIGHT KNEE: No acute fracture or dislocation. Moderate degenerative changes of the knee worst involving the medial compartment with there is mild loss of joint space slightly progressed from prior with medial and patellofemoral compartment osteophytes and quadriceps tendon enthesopathy. Small suprapatellar joint effusion. Soft tissues are unremarkable. LEFT KNEE: No acute fracture or dislocation. Moderate degenerative changes of the knee with loss of lateral greater than medial compartment joint space, tricompartmental osteophytes and quadriceps tendon enthesopathy, possibly minimally progressed. 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 Few tiny osseous fragments within the tibiofemoral joint space which may reflect loose bodies measuring up to 5 mm. Small suprapatellar joint effusion. Soft tissues are unremarkable. XR/XR knee LT 4V IMPRESSION: * No acute osseous abnormality. * Moderate degenerative changes of the knees, slightly progressed from prior. Small suprapatellar joint effusions.
== END 2022-08-19 16:30 | disposition home or self-care (01) ==
LOC: HO.XRAY 16:29
PROVIDERS: PCP Internal Medicine Geriatric Medicine; Visit Provider Internal Medicine Geriatric Medicine
DX: M17.12 Unilateral primary osteoarthritis, left knee (principal)
CPT/HCPCS: 73564

== ENCOUNTER 2022-09-25 09:23 | Outpatient (REF) | payer MEDICARE, MEDICAID, SELFPAY ==
--- NOTE | ~2022-09-25 | XR_ITS ---
EXAMINATION: XR BOTH KNEES AP STANDING XR right and left KNEE, 2 VIEWS CLINICAL INFORMATION: Pain COMPARISON: 08/19/2022 TECHNIQUE: Standing AP view of both knees and lateral and sunrise views of the right and left knee. FINDINGS: LEFT KNEE: There is mild narrowing of the medial joint space. Patellar spurring is noted but no joint effusion. There is soft tissue and bony prominence of the anterior tibial tubercle. RIGHT KNEE: There is prominence to the tibial spines. No fracture or destructive lesion. XR/XR knee LT 2V Overall, no change from the prior studies. IMPRESSION: No acute findings. Chronic arthritic change particularly in the left knee.
--- NOTE | ~2022-09-25 | XR_ITS ---
EXAMINATION: XR BOTH KNEES AP STANDING XR right and left KNEE, 2 VIEWS CLINICAL INFORMATION: Pain COMPARISON: 08/19/2022 TECHNIQUE: Standing AP view of both knees and lateral and sunrise views of the right and left knee. FINDINGS: LEFT KNEE: There is mild narrowing of the medial joint space. Patellar spurring is noted but no joint effusion. There is soft tissue and bony prominence of the anterior tibial tubercle. RIGHT KNEE: There is prominence to the tibial spines. No fracture or destructive lesion. XR/XR knee standing BI Overall, no change from the prior studies. IMPRESSION: No acute findings. Chronic arthritic change particularly in the left knee.
== END 2022-09-25 09:24 | disposition home or self-care (01) ==
LOC: HO.HOSX 09:23
PROVIDERS: Visit Provider Orthopaedic Surgery
DX: M17.0 Bilateral primary osteoarthritis of knee (principal); Z91.81 History of falling
CPT/HCPCS: 20610; 73560; 73565; 99202; J1100

== ENCOUNTER 2022-11-18 10:43 | Outpatient (REF) | payer OTHER, SELFPAY ==
[2022-11-18 13:10] LABS: MANUAL DIFF FLAG NO
[2022-11-18 13:29] LABS: Basophils Percent Auto 0.6 % (0-2); Eosinophils Absolute Auto 0.2 X10*3/uL (0.0-0.4); Eosinophils Percent Auto 2.9 % (0-4); Hematocrit 40.4 % (42.0-52.0); Hemoglobin 11.4 g/dl (14.0-18.0); Imm Gran Abs Auto 0.01 X10*3/uL (0.00-0.03); Imm Gran Pct Auto 0.1 % (0.0-0.4); Lymphocytes Absolute Auto 1.2 X10*3/uL (1.2-4.9); Lymphocytes Percent Auto 15.9 % (20-40); Mean Corpuscular HGB Conc 28.2 g/dl (31.0-36.0); Mean Corpuscular Hemoglobin 24.1 pg (27.0-33.0); Mean Corpuscular Volume 85.2 fL (80.0-98.0); Mean Platelet Volume 11.5 fL (9.4-12.4); Monocytes Absolute Auto 0.6 X10*3/uL (0.1-1.2); Monocytes Percent Auto 7.9 % (2-11); Neutrophils Absolute Auto 5.3 x10*3/uL (2.0-8.3); Neutrophils Percent Auto 72.6 % (45-73); Platelet Count 296 X10*3/uL (160-400); Red Blood Count 4.74 X10*6/uL (4.60-5.80); Red Cell Distribution Width 15.9 % (11.0-16.0); White Blood Count 7.3 X10*3/uL (4.8-10.8)
[2022-11-18 14:12] LABS: Prostate Specific Antigen 0.39 ng/mL (<0.05-4.0)
[2022-11-19 01:56] LABS: Anion Gap 14 (12-20); Blood Urea Nitrogen 20 mg/dL (9-16); Calcium 10.9 mg/dL (8.4-10.2); Carbon Dioxide 33 mmol/L (22-29); Chloride 102 mmol/L (96-108); Estimated Glomerular Filt Rate > 60; Glucose Random 156 mg/dL (60-115); Potassium 5.4 mmol/L (3.3-5.1); Sodium 144 mmol/L (135-145)
== END 2022-11-18 10:44 | disposition home or self-care (01) ==
LOC: HO.HHCL 10:43
PROVIDERS: Visit Provider Internal Medicine Geriatric Medicine
DX: Z12.5 Encounter for screening for malignant neoplasm of prostate (principal); E11.69 Type 2 diabetes mellitus with other specified complication
CPT/HCPCS: 36415; 80048; 84153; 85025

== ENCOUNTER 2022-11-25 17:23 | Outpatient (REF) | payer OTHER, SELFPAY ==
[2022-12-01 10:34] LABS: Nordiazepam, GCMS Urine NEGATIVE; Oxazepam, GCMS Urine NEGATIVE
[2022-12-01 10:35] LABS: Alphahydroxymidazolam,GCMS Ur NEGATIVE; Alphahydroxytriazolam, GCMS Ur NEGATIVE; Alprazolam, GCMS Urine NEGATIVE; Lorazepam GCMS Urine NEGATIVE; Temazepam, GCMS Urine NEGATIVE
[2022-12-01 10:36] LABS: Flurazepam Metabolite,GCMS Ur NEGATIVE
== END 2022-11-25 17:24 | disposition home or self-care (01) ==
LOC: HO.HHCLNP 17:23
PROVIDERS: Visit Provider Internal Medicine Geriatric Medicine
DX: F41.9 Anxiety disorder, unspecified (principal); Z79.899 Other long term (current) drug therapy
CPT/HCPCS: 80346

== ENCOUNTER 2022-11-30 09:55 | Outpatient (AMB) | payer OTHER, SELFPAY ==
[2022-11-30 10:06] VITALS: BMI 27.9
--- NOTE | 2022-11-30 10:06 | MHC.OFFVIS ---
Intake Vital Signs 11/30/22 10:06 Height 5 ft 11 in Weight 200 lb BMI 27.9 Intake Visit Reasons: ov- B/L knee pain last inj 09/25/22 Intake Note: Hong 66 yr old male presents today with his son in law for a follow up of bilateral knee pain. Last injections done 09/25/22 in both knees. These injections only helped for about a week and is unsure if he should repeat injections. Allergies No Known Allergies [No Known Allergies*] Allergy (Verified 12/04/22 13:50) HPI ov- B/L knee pain last inj 09/25/22 HPI Details Hong is a 66 year old Diabetic man who presents with complaints of worsening bilateral knee pain, L>R. He was last seen, and injected bilaterally, on 09/25/22, which he says lasted only ~6 week. He continues to have pain with daily activity, worse with walking. He says he is unable to walk beyond 5 minutes at a time before having to stop due to his pain, L>r. He reports numbness in his bilateral feet, but says he has Diabetic neuropathy. [facility] Medical History (Updated 12/04/22 @ 14:14 by Luis Fernando Doyle MD) COPD (chronic obstructive pulmonary disease) Social History (Updated 12/04/22 @ 13:54 by LATESHA Randall) Patient Tobacco Use Status: Former Tobacco user Years Smoked: 10 Years Ago Review of Systems Const All systems reviewed & are unremarkable except as noted in HPI and below Physical Exam Vital Signs: BMI result Body Mass Index 27.9 Const General: no acute distress and alert Orientation/consciousness: patient oriented x3 Neuro General: patient oriented x3 Extrem Other: Left Knee: TTP medial & Lateral joint line Antalgic gait Psych Appearance: grossly normal Affect: normal affect Attitude: cooperative Results Reviewed Results Reviewed: I personally reviewed relevant radiographs. Moderate-severe left knee tricompartmental OA Moderate left knee OA Assessment & Plan Assessment & Plan (1) Osteoarthritis of left knee: Code(s): M17.12 - Unilateral primary osteoarthritis, left knee Plan: This is a 66 year old man with moderate-severe left knee OA & moderate right knee OA. He has pain with daily activity, worse with ambulation and he continues to be unable to ambulate >5 minutes due to his knee pain. He reports only ~6 week of relief from his previous steroid injections on 09/25/22. I discussed his diagnosis and treatment options, and I think he would ultimately benefit from a TKA in the future, I recommend viscosupplementation for his left knee as steroid injections have been minimally helpful, and he is in agreement. He will follow up when approved for injection. (2) Diabetes mellitus: Code(s): E11.9 - Type 2 diabetes mellitus without complications Plan: I discussed the hyperglycemic effects of steroid injections (3) Osteoarthritis of right knee: Code(s): M17.11 - Unilateral primary osteoarthritis, right knee Plan Scribed for Corey Smith MD by Dustin Dias, medical technologist microbiology, on 11/30/22 at 10:40 AM, EST. Coding Level of Care Code Est Pt Level 4 (59964) Diagnoses Osteoarthritis of left knee M17.12 Diabetes mellitus E11.9 Osteoarthritis of right knee M17.11
== END 2022-11-30 10:35 | disposition home or self-care (01) ==
PROVIDERS: PCP Internal Medicine Geriatric Medicine; Visit Provider Orthopaedic Surgery
DX: M17.0 Bilateral primary osteoarthritis of knee (principal); E11.9 Type 2 diabetes mellitus without complications
CPT/HCPCS: 99214

== ENCOUNTER → 2022-11-30 09:55 | Outpatient (BNVA) | payer OTHER, SELFPAY | PROVIDERS: PCP Internal Medicine Geriatric Medicine; Visit Provider Orthopaedic Surgery | DX: M17.12 Unilateral primary osteoarthritis, left knee (principal); M17.11 Unilateral primary osteoarthritis, right knee; E11.9 Type 2 diabetes mellitus without complications | CPT/HCPCS: 99212 ==

== ENCOUNTER 2022-12-04 13:42 | Outpatient (AMB) | payer OTHER, SELFPAY ==
[2022-12-04 13:47] VITALS: BP 118/70; PULSE 89; O2SAT 95; BMI 26.3
--- NOTE | 2022-12-04 13:47 | MHC.OFFVIS ---
Intake Vital Signs 12/04/22 13:47 Height 5 ft 11 in Weight 188 lb 7.924 oz BMI 26.3 BP 118/70 Blood Pressure Location Rt brachial Position Sitting Pulse 89 Pulse Source Pulse Oximeter Pulse Oximetry (%) 95 Oxygen Delivery Method Room Air Intake Visit Reasons: Pulmonary Emphysema Hospital Laboratory Technician Required: No Allergies No Known Allergies [No Known Allergies*] Allergy (Verified 12/04/22 13:50) HPI HPI Comments History of Present Illness Details The patient is here for a pulmonary evaluation. The patient is a 66-year-old gentleman with a history of tobacco dependency here for evaluation of COPD. The patient states that he has had increasing shortness of breath for several months. However, in August his symptoms worsen with chest discomfort. He was evaluated at [facility] we had a CT scan of the chest that was personally by me. the patient appears to have some degree of subcu emphysema primarily in the upper lung zones and moderate degree of interstitial parenchymal disease at the bases. 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 The patient knows quit smoking. Seems to be doing better on the current respiratory therapy. In the meantime the patient has been having worsening daytime drowsiness. His status been concerned because he does fall asleep frequently during the daytime and also has apneic episodes at nighttime. Positive snoring. The patient does have cardiovascular risk factors. Therefore be reasonable to order a home sleep study this time to address his elevated Seneca score of 11/24. [facility] Medical History (Updated 12/06/22 @ 23:03 by Luis Fernando Doyle MD) Combined pulmonary fibrosis and emphysema (CPFE) COPD (chronic obstructive pulmonary disease) ILD (interstitial lung disease) Social History (Updated 12/04/22 @ 13:54 by LATESHA Randall) Patient Tobacco Use Status: Former Tobacco user Years Smoked: 10 Years Ago Review of Systems Const Reports daytime sleepiness, Reports snoring and Reports stops breathing during sleep Eyes Denies change in vision ENT Reports nasal congestion Card Denies chest pain and Reports dyspnea on exertion Resp Reports dyspnea on exertion, Reports snoring and Denies wheezing GI Reports no additional complaints Musc Reports no additional complaints Skin/Breast Denies rash Neuro Reports no additional complaints Norman/Lymph Denies lymphadenopathy Aller/Immun Denies wheezing Physical Exam Vital Signs: Last Vital Signs Pulse 89 08/04/23 13:47 BP 118/70 12/04/22 13:47 Pulse Ox 95 12/04/22 13:47 Oxygen Delivery Method Room Air 12/04/22 13:47 BMI result Body Mass Index 26.3 Const General: comfortable HEENT Head: Yes normocephalic Neck Neck: Yes supple Chest Chest palpation & inspection: normal inspection of the chest Resp Effort & Inspection: normal respiratory effort Auscultation: no wheezes and diminished lung sounds Cardio Rate: regular rate Rhythm: regular rhythm Heart sounds: S1 normal heart sound present and S2 normal heart sound present GI Palpation (GI): Soft to palpation Skin General skin exam: no rashes or lesions noted Extrem General: Yes no clubbing, cyanosis or edema Immunizations pneumoc 20-shreyas conj-dip cr(PF) Performing Provider: Luis Fernando Doyle MD Administered by: Shanique Billings LPN on 12/04/22 14:17 Dose Route Admin Location Lot Number Expiration Date [facility] 0.5 mL IM Right Deltoid [id number] 03/02/24 9440-5804-33 [employer] VIS Given Date VIS Provided VIS Publication Date 12/04/22 Single Vaccine 21 Eligibility Eligibility Date Funding Source Not [facility] Eligible 12/04/22 Private Assessment & Plan Assessment & Plan (1) MEHDI (obstructive sleep apnea): Code(s): G47.33 - Obstructive sleep apnea (adult) (pediatric) (2) COPD (chronic obstructive pulmonary disease): Code(s): J44.9 - Chronic obstructive pulmonary disease, unspecified (3) ILD (interstitial lung disease): Code(s): J84.9 - Interstitial pulmonary disease, unspecified (4) Combined pulmonary fibrosis and emphysema (CPFE): Code(s): J43.9 - Emphysema, unspecified; J84.10 - Pulmonary fibrosis, unspecified Plan continue LAMA ZEKE as needed PFTs Home PSG Prevnar 20 today F/U 2-3 months Orders: Orders PFT pulmonary function test 12/04/22 G47.33 - Obstructive sleep apnea (adult) (pediatric), J44.9 - Chronic obstructive pulmonary disease, unspecified RT home sleep study 12/04/22 G47.33 - Obstructive sleep apnea (adult) (pediatric), J44.9 - Chronic obstructive pulmonary disease, unspecified Pneumococcal 20 Immunization 12/04/22 Z23 - Encounter for immunization Coding Level of Care Code New Pt Level 4 (47453) Diagnoses MEHDI (obstructive sleep apnea) G47.33 COPD (chronic obstructive pulmonary disease) J44.9 ILD (interstitial lung disease) J84.9 Combined pulmonary fibrosis and emphysema (CPFE) J43.9; J84.10 Time Spent (min) 38
== END 2022-12-04 14:17 | disposition home or self-care (01) ==
PROVIDERS: PCP Internal Medicine Geriatric Medicine; Visit Provider Hospitalist
DX: G47.33 Obstructive sleep apnea (adult) (pediatric) (principal); J44.9 Chronic obstructive pulmonary disease, unspecified; J84.9 Interstitial pulmonary disease, unspecified; J84.10 Pulmonary fibrosis, unspecified
CPT/HCPCS: 99204

== ENCOUNTER → 2022-12-04 13:42 | Outpatient (BNVA) | payer OTHER, SELFPAY | PROVIDERS: PCP Internal Medicine Geriatric Medicine; Visit Provider Hospitalist | DX: Z23 Encounter for immunization (principal); J43.9 Emphysema, unspecified; J84.10 Pulmonary fibrosis, unspecified; J84.9 Interstitial pulmonary disease, unspecified; J44.9 Chronic obstructive pulmonary disease, unspecified; G47.33 Obstructive sleep apnea (adult) (pediatric) | CPT/HCPCS: 90471; 90677; 99202 ==

== ENCOUNTER 2022-12-31 12:56 | Outpatient (AMB) | payer OTHER, SELFPAY ==
--- NOTE | 2022-12-31 13:00 | A.OFFVIS_ITS ---
Intake Intake Visit Reasons: OV - Left Knee Durolane Injection Intake Note: Hong is a 67 year old male who presents today for a Left Knee Durolane Injection. Allergies No Known Allergies [No Known Allergies*] Allergy (Verified 12/31/22 13:01) HPI OV - Left Knee Durolane Injection HPI Details Hong is a 66 year old Diabetic man who presents for a left knee Durolane injection. He has bilateral knee OA, L>R, and has found limited relief from steroid injections. He continues to have pain with daily activity and is limited in his ability to walk long distances. He reports numbness in his bilateral feet, but says he has Diabetic neuropathy. ? [facility] Medical History Combined pulmonary fibrosis and emphysema (CPFE) COPD (chronic obstructive pulmonary disease) ILD (interstitial lung disease) Social History Patient Tobacco Use Status: Former Tobacco user Years Smoked: 10 Years Ago Review of Systems Const All systems reviewed & are unremarkable except as noted in HPI and below Physical Exam Const General: no acute distress, alert and awake Orientation/consciousness: patient oriented x3 HEENT Head: Yes normocephalic and Yes atraumatic Eyes EOM: EOMs intact bilaterally Resp Effort & Inspection: normal respiratory effort and able to speak in complete sentences Cardio Jugular venous distension: no JVD Skin General skin exam: turgor normal Rashes: no rashes Neuro General: patient oriented x3 Extrem Other: Left Knee: Skin C/D/I No effusion Psych Appearance: grossly normal Affect: normal affect Attitude: cooperative Office Procedures Joint Injection/Drain Joint Injection/Drain Details: Durolane Primary Site: left knee Approach Used: anterolateral Coding 12323 - Large joint Procedure code (CPT) selection complete Results Reviewed Results Reviewed: 12/31/22 12:58 BUPivacaine MPF 0.25 % [Sensorcaine-MPF 0.25% 10 ML] 10 ml .ROUTE .STK-MED ONE Lidocaine HCl 2 % MPF [Xylocaine 2 % MPF] 5 ml .ROUTE .STK-MED ONE 12/31/22 12:59 Hyaluronate Sodium, Stabilized [Durolane] 60 mg INTRAARTIC .STK-MED ONE Assessment & Plan Assessment & Plan (1) Osteoarthritis of left knee: Code(s): M17.12 - Unilateral primary osteoarthritis, left knee Plan: This is a 66 year old man with moderate-severe left knee OA & moderate right knee OA. He has pain with daily activity, worse with ambulation and he continues to be unable to ambulate >5 minutes due to his knee pain. He has limited relief from steroid injections in the past, and I think he would ultimately benefit from a TKA in the future. I injected his left knee with Durolane, which he tolerated well. He [ ] follow up [ ]. (2) Diabetes mellitus: Code(s): E11.9 - Type 2 diabetes mellitus without complications Plan Scribed for Corey Smith MD by Dustin Dias, product manager medical device, on [ ] at [ ], EST. Coding Level of Care Code Est Pt Level 2 (79129) Diagnoses Osteoarthritis of left knee M17.12 Diabetes mellitus E11.9 CPT Codes Coding - 79234 Large joint: 35364 - Large joint ([id number])
== END 2022-12-31 14:11 | disposition home or self-care (01) ==
PROVIDERS: PCP Internal Medicine Geriatric Medicine; Visit Provider Orthopaedic Surgery
DX: M17.0 Bilateral primary osteoarthritis of knee (principal)
CPT/HCPCS: 20610

== ENCOUNTER → 2022-12-31 12:56 | Outpatient (BNVA) | payer OTHER, SELFPAY | PROVIDERS: PCP Internal Medicine Geriatric Medicine; Visit Provider Orthopaedic Surgery | DX: M17.0 Bilateral primary osteoarthritis of knee (principal); E11.9 Type 2 diabetes mellitus without complications | CPT/HCPCS: 20610; J7318 ==

== ENCOUNTER 2023-03-08 12:32 | Outpatient (REF) | payer OTHER, SELFPAY ==
[2023-03-08 13:19] LABS: MANUAL DIFF FLAG NO
[2023-03-08 13:26] LABS: Basophils Percent Auto 0.5 % (0-2); Eosinophils Absolute Auto 0.3 X10*3/uL (0.0-0.4); Eosinophils Percent Auto 3.8 % (0-4); Hemoglobin 11.5 g/dl (14.0-18.0); Imm Gran Abs Auto 0.03 X10*3/uL (0.00-0.03); Imm Gran Pct Auto 0.5 % (0.0-0.4); Lymphocytes Absolute Auto 1.2 X10*3/uL (1.2-4.9); Lymphocytes Percent Auto 17.8 % (20-40); Mean Corpuscular HGB Conc 30.3 g/dl (31.0-36.0); Mean Corpuscular Hemoglobin 25.8 pg (27.0-33.0); Mean Corpuscular Volume 85.2 fL (80.0-98.0); Mean Platelet Volume 10.4 fL (9.4-12.4); Monocytes Absolute Auto 0.5 X10*3/uL (0.1-1.2); Monocytes Percent Auto 7.3 % (2-11); Neutrophils Absolute Auto 4.6 x10*3/uL (2.0-8.3); Neutrophils Percent Auto 70.1 % (45-73); Platelet Count 254 X10*3/uL (160-400); Red Blood Count 4.46 X10*6/uL (4.60-5.80); Red Cell Distribution Width 16.1 % (11.0-16.0); White Blood Count 6.6 X10*3/uL (4.8-10.8)
[2023-03-08 14:10] LABS: Creatinine Urine 144.18 mg/dL; Microalbum/Creatinine Ratio Ur 28.4 ug/mg cr (<30)
[2023-03-08 14:21] LABS: Anion Gap 12 (12-20); Blood Urea Nitrogen 18 mg/dL (9-16); Calcium 10.5 mg/dL (8.4-10.2); Carbon Dioxide 33 mmol/L (22-29); Chloride 102 mmol/L (96-108); Cholesterol 151 mg/dL (<200); Estimated Glomerular Filt Rate > 60; Glucose Random 136 mg/dL (60-115); HDL Cholesterol 34 mg/dL (>40); LDL Cholesterol Calculated 98 mg/dL (<100); Potassium 6.1 mmol/L (3.3-5.1); Sodium 141 mmol/L (135-145); Triglycerides 99 mg/dL (<150)
== END 2023-03-08 12:33 | disposition home or self-care (01) ==
LOC: HO.HHCL 12:32
PROVIDERS: Visit Provider Internal Medicine Geriatric Medicine
DX: E11.69 Type 2 diabetes mellitus with other specified complication (principal); I95.9 Hypotension, unspecified
CPT/HCPCS: 36415; 80048; 80061; 82043; 82570; 85025

== ENCOUNTER 2023-04-07 15:33 | Outpatient (REF) | payer OTHER, SELFPAY ==
[2023-04-07 17:08] LABS: Anion Gap 13 (12-20); Blood Urea Nitrogen 16 mg/dL (9-16); Carbon Dioxide 30 mmol/L (22-29); Chloride 101 mmol/L (96-108); Estimated Glomerular Filt Rate > 60; Glucose Random 125 mg/dL (60-115); Sodium 140 mmol/L (135-145)
[2023-04-07 17:24] LABS: TSH reflex Free T4 1.56 uIU/mL (0.32-4.0)
== END 2023-04-07 15:34 | disposition home or self-care (01) ==
LOC: HO.CHCLDS 15:33
PROVIDERS: Visit Provider Internal Medicine Geriatric Medicine
DX: E87.5 Hyperkalemia (principal); R00.0 Tachycardia, unspecified
CPT/HCPCS: 36415; 80048; 84443

== ENCOUNTER 2023-04-20 11:30 | Outpatient (AMB) | payer OTHER, SELFPAY ==
--- NOTE | 2023-04-20 11:34 | A.OFFVIS_ITS ---
Intake Vital Signs 04/20/23 11:37 Height 5 ft 11 in Weight 178 lb BMI 24.8 BP 137/79 Blood Pressure Location Lt brachial Position Sitting Pulse 101 H Intake Visit Reasons: iron def due to blood loss Intake Note: Patient new consult for Iron due blood loss. Patient cc: loss weight, no appetite, fatigue, and tiredness. Denies any other GI issues. Tensioning Machine Operator Required: Yes Tensioning Machine Operator Name: Natalia [id number] Accompanied by: Daughter Allergies No Known Allergies [No Known Allergies*] Allergy (Verified 04/20/23 11:34) Medication List - Last Reconciled 04/20/23 by Daija Villar PA-C albuterol sulfate 90 mcg/actuation (Proventil HFA) 2 puffs inhalation Q4-6H PRN atorvastatin 40 mg PO DAILY benzonatate 100 mg PO BID PRN 7 days clonazepam 2 mg PO DAILY PRN escitalopram oxalate 10 mg PO DAILY ferrous sulfate (FeroSul) 0 mg PO gabapentin 0 mg PO metformin 1,000 mg PO omeprazole 20 mg PO DAILY prednisone 20 mg PO DAILY 7 days tiotropium bromide (Spiriva with HandiHaler) 1 cap inhalation QAM tramadol 50 mg PO DAILY PRN HPI HPI Comments History of Present Illness Details 67-year-old male multiple comorbidities is, COPD, MEHDI, OA, diabetes, referred with anemia- his daughter is present- He was admitted at [facility]-after a fall- where he had an EGD and colonoscopy- his daughter accompanies him/deputy editor in chief speaks for him she says he being referred for Capsule study-he was referred by Dr. Gamble. We do not have EGD colonoscopy records- will to be obtained He has blood transfusion as well Iron supplements since that time Good appt- Bowels normal- no rectal bleeding no blood noted in stool No nausea, vomiting, hematemesis, hematochezia fever or chills [facility] Medical History Combined pulmonary fibrosis and emphysema (CPFE) ILD (interstitial lung disease) COPD (chronic obstructive pulmonary disease) Social History Patient Tobacco Use Status: Former Tobacco user Years Smoked: 10 Years Ago Physical Exam Vital Signs: Last Vital Signs Pulse 101 H 04/20/23 11:37 BP 137/79 04/20/23 11:37 BMI result Body Mass Index 24.8 Const General: cooperative, healthy appearing, comfortable and no acute distress Orientation/consciousness: patient oriented x3 Limitations: language barrier Eyes Sclerae: sclerae normal Resp Effort & Inspection: normal respiratory effort and able to speak in complete sentences Auscultation: no rales, no rhonchi, no wheezes and diminished lung sounds Cardio Rate: regular rate Rhythm: regular rhythm Heart sounds: S1 normal heart sound present and S2 normal heart sound present GI Palpation (GI): Soft to palpation and nontender Auscultation: normal bowel sounds Skin General skin exam: no rashes or lesions noted Neuro General: patient oriented x3 Extrem General: Yes full ROM Psych Appearance: grossly normal and well kempt Mental Status: mental status grossly normal Speech and movement: Normal speech and movement present Affect: normal affect Attitude: cooperative Thought process: Normal thought process present Thought content: Normal thought content present Assessment & Plan Assessment & Plan (1) Anemia: Comment: EGD/ colonoscopy @ -no records for review- no overt bleeding Iron supplement Reviewed recent labs- Code(s): D64.9 - Anemia, unspecified Plan: get records- schedule CUE if appropriate Need to further review record need labs Plan CUE if appropriate Need to call pt daughter- [phone] Orders: Orders Ferritin Today D64.9 - Anemia, unspecified IRON PROFILE Today D64.9 - Anemia, unspecified Complete Blood Count Auto Diff Today D64.9 - Anemia, unspecified Patient Instructions: Pleasant 67-year-old Gent previously evaluated at [facility] with EGD colonoscopy for anemia has been referred to [facility] for capsule endoscopy. Unfortunately records are not available for our review we will request them. 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
[2023-04-20 11:37] VITALS: BP 137/79; PULSE 101; BMI 24.8
== END 2023-04-20 12:30 | disposition home or self-care (01) ==
PROVIDERS: PCP Internal Medicine Geriatric Medicine; Visit Provider Physician Assistant
DX: D64.9 Anemia, unspecified (principal)
CPT/HCPCS: 99204

== ENCOUNTER → 2023-04-20 11:30 | Outpatient (BNVA) | payer OTHER, SELFPAY | PROVIDERS: PCP Internal Medicine Geriatric Medicine; Visit Provider Physician Assistant | DX: D50.0 Iron deficiency anemia secondary to blood loss (chronic) (principal) | CPT/HCPCS: 99202 ==

== ENCOUNTER 2023-06-30 11:38 | Outpatient (REF) | payer OTHER, SELFPAY ==
--- NOTE | ~2023-06-30 | XR_ITS ---
EXAMINATION: XR CHEST CLINICAL INFORMATION: 1 week cough wheezing COMPARISON: Radiograph from 07/29/2022 TECHNIQUE: 2 views of the chest were obtained. FINDINGS: Streaky opacities of the bilateral lung bases may reflect evolving infectious/inflammatory etiology. No pneumothorax. Trachea is midline. Cardiac mediastinal silhouette is not enlarged. Aorta demonstrates tortuosity with atherosclerotic calcifications. No large pleural effusion. Lower cervical spinal hardware. Multilevel degenerative changes of the thoracolumbar spine. Soft tissues are unremarkable. XR/XR chest 2V IMPRESSION: Streaky opacities of the bilateral lung bases may reflect evolving infectious/inflammatory etiology.
[2023-06-30 13:31] LABS: MANUAL DIFF FLAG NO
[2023-06-30 13:54] LABS: Basophils Percent Auto 0.3 % (0-2); Eosinophils Absolute Auto 0.2 X10*3/uL (0.0-0.4); Eosinophils Percent Auto 2.2 % (0-4); Hematocrit 40.5 % (42.0-52.0); Hemoglobin 11.9 g/dl (14.0-18.0); Imm Gran Abs Auto 0.03 X10*3/uL (0.00-0.03); Imm Gran Pct Auto 0.3 % (0.0-0.4); Lymphocytes Absolute Auto 1.5 X10*3/uL (1.2-4.9); Lymphocytes Percent Auto 16.7 % (20-40); Mean Corpuscular HGB Conc 29.4 g/dl (31.0-36.0); Mean Corpuscular Hemoglobin 24.4 pg (27.0-33.0); Mean Platelet Volume 11.1 fL (9.4-12.4); Monocytes Absolute Auto 0.7 X10*3/uL (0.1-1.2); Monocytes Percent Auto 8.2 % (2-11); Neutrophils Absolute Auto 6.4 x10*3/uL (2.0-8.3); Neutrophils Percent Auto 72.3 % (45-73); Platelet Count 262 X10*3/uL (160-400); Red Blood Count 4.88 X10*6/uL (4.60-5.80); White Blood Count 8.8 X10*3/uL (4.8-10.8)
[2023-06-30 14:27] LABS: Anion Gap 11 (12-20); Blood Urea Nitrogen 13 mg/dL (9-16); Calcium 9.9 mg/dL (8.4-10.2); Carbon Dioxide 31 mmol/L (22-29); Chloride 105 mmol/L (96-108); Estimated Glomerular Filt Rate > 60; Glucose Random 133 mg/dL (60-115); Potassium 5.3 mmol/L (3.3-5.1); Sodium 142 mmol/L (135-145)
== END 2023-06-30 11:39 | disposition home or self-care (01) ==
LOC: HO.HHCL 11:38
PROVIDERS: Visit Provider Internal Medicine Geriatric Medicine
DX: R05.9 Cough, unspecified (principal)
CPT/HCPCS: 36415; 71046; 80048; 85025

== ENCOUNTER 2023-07-20 14:38 | Outpatient (REF) | payer OTHER, SELFPAY ==
--- NOTE | ~2023-07-20 | XR_ITS ---
EXAMINATION: XR HIP, LEFT CLINICAL INFORMATION: Orders states chronic pain of left knee status post fall. Patient states he fell Wednesday. Left knee and hip order. COMPARISON: None available. TECHNIQUE: 2 views of the left hip. FINDINGS: The bones are diffusely demineralized. Left hip alignment preserved. Moderate degenerative changes with superior joint space narrowing and hypertrophic change. Soft tissue calcifications are likely vascular. No gross displaced fracture of the hip is appreciated; however, CT scan is recommended if there is clinical concern for fracture or other underlying pathology. XR/XR hip LT min 2V IMPRESSION: 1. Moderate degenerative changes in the left hip. 2. No gross displaced fracture of the hip is appreciated; however, CT scan is recommended if there is clinical concern for fracture or other underlying pathology.
--- NOTE | ~2023-07-20 | XR_ITS ---
EXAMINATION: XR KNEE, LEFT CLINICAL INFORMATION: Chronic pain of left knee after fall. Patient states he fell Wednesday. COMPARISON: 09/25/2022. TECHNIQUE: Two views of the left knee. FINDINGS: Mild narrowing of the medial compartment. [id number] narrowing of the lateral and patellofemoral compartments. Small suprapatellar effusion. XR/XR knee LT 2V IMPRESSION: [id number] degenerative changes. CT scan recommended for further evaluation if there is clinical concern for fracture.
== END 2023-07-20 14:39 | disposition home or self-care (01) ==
LOC: HO.HHCX 14:38
PROVIDERS: Visit Provider Internal Medicine
DX: M25.562 Pain in left knee (principal); G89.29 Other chronic pain; Z91.81 History of falling
CPT/HCPCS: 73502; 73560

== ENCOUNTER 2023-07-26 11:01 | Outpatient (REF) | payer OTHER, SELFPAY ==
--- NOTE | ~2023-07-26 | XR_ITS ---
EXAMINATION: XR PELVIS CLINICAL INFORMATION: Pain. COMPARISON: Radiograph left hip 07/20/2023. TECHNIQUE: AP view of the pelvis. FINDINGS: No evidence of acute fracture or subluxation. Moderate degenerative osteoarthritis in both hips with joint space narrowing, subcortical sclerosis and bony productive changes. Bilateral superolateral well-corticated os acetabuli are seen. Enthesophytosis along the iliac crests and ischial tuberosities. Pubic symphysis and pelvic ring are maintained. Pelvic phleboliths and vascular calcifications are seen. XR/XR pelvis 1-2V IMPRESSION: No fracture or subluxation. Moderate multifocal degenerative changes.
== END 2023-07-26 11:02 | disposition home or self-care (01) ==
LOC: HO.HOSX 11:01
PROVIDERS: PCP Internal Medicine Geriatric Medicine; Visit Provider Orthopaedic Surgery
DX: M17.12 Unilateral primary osteoarthritis, left knee (principal)
CPT/HCPCS: 20610; 72170; 99212; J0665; J1100

== ENCOUNTER 2023-07-26 11:01 | Outpatient (AMB) | payer OTHER, SELFPAY ==
--- NOTE | 2023-07-26 11:25 | MHC.OFFVIS ---
Intake Vital Signs 07/26/23 11:26 Height 5 ft 1 in Weight 178 lb BMI 33.6 Intake Visit Reasons: OV- Left Knee OA - Discuss TKA Intake Note: Hong is a 67 year old male who presents today for a follow up of his left knee moderate - severe OA. Left knee Durolane injection 12/31/22 which has offered mild relief. He has limited relief from steroid injections in the past, and I think he would ultimately benefit from a TKA in the future. He presents today to discuss TKA Allergies No Known Allergies [No Known Allergies*] Allergy (Verified 04/20/23 11:34) HPI OV- Left Knee OA - Discuss TKA HPI Details Hong is a 67 year old male who presents today for a follow up of his left knee moderate - severe OA. Left knee Durolane injection 12/31/22 which has offered mild relief. He has limited relief from steroid injections in the past, and I think he would ultimately benefit from a TKA in the future. He feels that his knee gives way and then he can not walk for long distances without feeling pain. He states his primary problem, however is fear of falling rather than pain. He is here today with his son and his [id number]. [facility] Medical History Combined pulmonary fibrosis and emphysema (CPFE) ILD (interstitial lung disease) COPD (chronic obstructive pulmonary disease) Social History Patient Tobacco Use Status: Former Tobacco user Years Smoked: 10 Years Ago Physical Exam Vital Signs: BMI result Body Mass Index 33.6 Const General: cooperative, healthy appearing, no acute distress, well developed and alert HEENT Head: Yes normal to inspection, Yes normocephalic and Yes atraumatic Mouth: moist mucous membranes Eyes General: appearance normal, both eyes and all related structures EOM: EOMs intact bilaterally Chest Other: no audible wheezing. Resp Other: No audible wheezing Effort & Inspection: normal respiratory effort Back/Spine/Pelvis Cervical Spine: normal cervical lordosis Skin General skin exam: no rashes or lesions noted Neuro General: no focal motor deficits Extrem Other: Left knee with tenderness to palpation over the lateral joint line that is mild. Full range of motion Stiffness in bilateral hips with mildly positive impingement testing bilaterally Mild gait antalgia that seems to be multifactorial not typical of knee arthritis only. Psych Appearance: grossly normal and well kempt Mental Status: mental status grossly normal Speech and movement: Normal speech and movement present Affect: normal affect Attitude: cooperative Office Procedures Joint Injection/Drain Joint Injection/Drain Details: Injected 1 mL of Decadron and 3 mL 1% lidocaine and 3 mL of 0.25% Marcaine. Site was prepped using aseptic technique. Patient tolerated the procedure well. Primary Site: left knee Coding - Large joint Procedure code (CPT) selection complete Results Reviewed Results Reviewed: I personally reviewed relevant radiographs. Mild bilateral hip arthritis Assessment & Plan Assessment & Plan (1) Osteoarthritis of left knee: Code(s): M17.12 - Unilateral primary osteoarthritis, left knee Plan: This is a 67-year-old gentleman with moderate osteoarthritis of the left knee who has had only limited success with injections. We had a long discussion regarding treatment options. At this point I recommend injection and some sort of physical therapy. He states he is going to go to physical therapy on his own and ride a stationary bike. We will see if this does indeed happen I certainly think it has a good idea. I also injected his left knee. I discussed the hyperglycemic effects of steroids. He will follow up in 3 months. (2) Diabetes mellitus: Code(s): E11.9 - Type 2 diabetes mellitus without complications Plan: I discussed the hyperglycemic effects of steroids. Orders: Orders XR pelvis 1-2V Today M25.559 - Pain in unspecified hip Coding Level of Care Code Est Pt Level 4 (08369) Diagnoses Osteoarthritis of left knee M17.12 Diabetes mellitus E11.9 CPT Codes Coding - Large joint: 89886 - Large joint ([id number])
[2023-07-26 11:26] VITALS: BMI 33.6
== END 2023-07-26 12:15 | disposition home or self-care (01) ==
PROVIDERS: PCP Internal Medicine Geriatric Medicine; Visit Provider Orthopaedic Surgery
DX: M17.12 Unilateral primary osteoarthritis, left knee (principal); E11.9 Type 2 diabetes mellitus without complications
CPT/HCPCS: 20610; 99214

== ENCOUNTER 2023-12-13 08:01 | Outpatient (REF) | payer OTHER, SELFPAY ==
[2023-12-13 11:03] LABS: MANUAL DIFF FLAG NO
[2023-12-13 11:12] LABS: Basophils Percent Auto 0.5 % (0-2); Eosinophils Absolute Auto 0.2 X10*3/uL (0.0-0.4); Eosinophils Percent Auto 3.1 % (0-4); Hematocrit 39.7 % (42.0-52.0); Hemoglobin 11.5 g/dl (14.0-18.0); Imm Gran Abs Auto 0.02 X10*3/uL (0.00-0.03); Imm Gran Pct Auto 0.4 % (0.0-0.4); Lymphocytes Absolute Auto 1.2 X10*3/uL (1.2-4.9); Lymphocytes Percent Auto 22.2 % (20-40); Mean Corpuscular Hemoglobin 24.2 pg (27.0-33.0); Mean Corpuscular Volume 83.6 fL (80.0-98.0); Mean Platelet Volume 10.7 fL (9.4-12.4); Monocytes Absolute Auto 0.5 X10*3/uL (0.1-1.2); Monocytes Percent Auto 9.7 % (2-11); Neutrophils Absolute Auto 3.6 x10*3/uL (2.0-8.3); Neutrophils Percent Auto 64.1 % (45-73); Platelet Count 255 X10*3/uL (160-400); Red Blood Count 4.75 X10*6/uL (4.60-5.80); Red Cell Distribution Width 16.2 % (11.0-16.0); White Blood Count 5.5 X10*3/uL (4.8-10.8)
[2023-12-13 11:30] LABS: Alanine Aminotransferase 26 U/L (0-40); Albumin Level 4.5 g/dL (3.5-5.0); Alkaline Phosphatase 73 U/L (39-117); Anion Gap 16 (12-20); Aspartate Amino Transferase 23 U/L (5-37); Bilirubin Total 0.2 mg/dL (0.0-1.0); Blood Urea Nitrogen 15 mg/dL (9-16); Calcium 10.5 mg/dL (8.4-10.2); Carbon Dioxide 32 mmol/L (22-29); Chloride 102 mmol/L (96-108); Cholesterol 129 mg/dL (<200); Estimated Glomerular Filt Rate > 60; Glucose Random 223 mg/dL (60-115); HDL Cholesterol 29 mg/dL (>40); Iron 59 mcg/dL (45-160); LDL Cholesterol Calculated 76 mg/dL (<100); Percent Iron Saturation 16 % (15-50); Potassium 5.5 mmol/L (3.3-5.1); Sodium 144 mmol/L (135-145); Total Iron Binding Capacity 364 mcg/dL (228-428); Total Protein 8.1 g/dL (6.5-8.0); Triglycerides 122 mg/dL (<150); Unsaturated Iron Binding 305 ug/dL
[2023-12-13 11:47] LABS: Ferritin 16 ng/mL (20-250)
[2023-12-13 11:48] LABS: Microalbum/Creatinine Ratio Ur 36.2 ug/mg cr (<30)
== END 2023-12-13 08:02 | disposition home or self-care (01) ==
LOC: HO.HHCL 08:01
PROVIDERS: Referring Provider Physician Assistant; Visit Provider Internal Medicine Geriatric Medicine
DX: E11.65 Type 2 diabetes mellitus with hyperglycemia (principal); D64.9 Anemia, unspecified; M17.12 Unilateral primary osteoarthritis, left knee; I10 Essential (primary) hypertension
CPT/HCPCS: 36415; 80053; 80061; 82043; 82570; 82728; 83540; 85025

== ENCOUNTER → 2024-06-07 13:48 | Outpatient (BNV) | payer OTHER, SELFPAY | PROVIDERS: PCP Internal Medicine Geriatric Medicine; Visit Provider Internal Medicine Cardiovascular Disease | DX: I51.89 Other ill-defined heart diseases (principal); I35.8 Other nonrheumatic aortic valve disorders; I34.81 Nonrheumatic mitral (valve) annulus calcification | CPT/HCPCS: 93306 ==

== ENCOUNTER 2024-06-12 14:07 | Outpatient (REF) | payer OTHER, SELFPAY ==
--- OUTSIDE RECORDS SUMMARY | 2024-06-12 15:29 | XMS_ITS | Encounter Summary ---
Author Organization [employer] Address [address] [facility] 7t [place] [address] Care Team Providers Care Double Back Operator Name Role Phone Name, Rolf PARKS Primary Care Provider [phone] Martine Broussard PharmD Unavailable [phone] Encounter Details Date Type Department Care Team (Latest Contact Info) Description 06/09/2024 Travel Social History Tobacco Use Types Packs/Day Years Used Date Smoking Tobacco: Former Cigarettes Passive Smoke Exposure: Never Smokeless Tobacco: Never Alcohol Use Standard Drinks/Week Comments Yes 0 (1 standard drink = 0.6 oz pur e alcohol) occassional Alcohol Answer Date Recorded Frequency of Alcohol Consumption Not on file 12/06/2023 Average Number of Drinks Not on file 024 Frequency of Binge Drinking Not on file 09/2023 Score 0 12/06/2023 Depression Answer Date Recorded Patient Health Questionnaire-9 Score 0 12/06/2023 Patient Health Questionnaire-9 Score 0 12/06/2023 Last PHQ-9: Questionnaire Data Not on file 0 12/06/2023 Housing Stability Answer Date Recorded What is your housing situation today? I have riya taylor 11/26/[address] you li ve. Do you have problems with any of the following? None of the above 11/26/2023 Food Insecurity Answer Date Recorded Within the past 12 months, y ou worried that your food would run out before you got money to buy more: Never True 11/26/2023 Within the past 12 months,th e food you bought just didn't last and you didn't have enough money to get more: Never True Transportation Answer Date Recorded In the past 12 months, has l ack of transportation kept you from medical appts, meetings, work or from getting things needed for daily living? No 11/26/2023 Utilities Answer Date Recorded In the past 12 months, has t he electric, gas, oil or water company threatened to shut off services in your home? No 11/26/2023 Depression Answer Date Recorded Patient Health Questionnaire-2 Score 0 12/06/2023 Internet Access Answer Date Recorded Internet Access Q1 Yes 01/03/2024 Internet Access Q2 Not on file 01/03/2024 Sex and Gender Information Value Date Recorded Sex Assigned at Male 03/02/2022 10:19 AM EDT Legal Sex Male 10:19 AM EDT Gender Identity Male 05/22/2022 9:34 AM EST Sexual Orientation Don't know 05/22/2022 9: 34 AM EST documented as of this encounter Plan of Treatment Upcoming Encounters Date Type Department Care Team (Late st Contact Info) Description 08/18/2024 10:00 AM EDT Telemedicine [facility] [address] [place] [address] Karla Lewis RN 08/18/2024 11:15 AM EDT Office Visit [facility] [address] [place] [address] Name, MD Rolf [address] [place] [address] documented as of this encounter Goals Goal Patient Goal Type Associated Problems Recent Progress Patient-Stated? Author Hemoglobin A1c < 7 Result Component 6.6( 11:14 AM EST) No Puia, Martine, PharmD Record your blood sugar as directed Result Component No Puia, Martine, PharmD documented as of this encounter Visit Diagnoses Not on filedocumented in this encounter Additional Health Concerns Assessment Noted Time PHQ-9 Depression Total Score: 0 12/06/19 10:09 AM EDT documented as of this encounter Care Teams Double Back Operator Relationship Specialty Start Date End Date NameRolf MD [address] [place] [address] PCP - General Family Medicine 10/21/17 Puia, Martine, PharmD [address] [place] [address] Pharmacist Internal Medicine 04/20/23 documented as of this encounter
--- OUTSIDE RECORDS SUMMARY | 2024-06-12 15:29 | XMS_ITS | Encounter Summary ---
Author Organization [employer] Address [address] [facility] 7t [place] [address] Care Team Providers Care Artificial Intelligence Specialist Name Role Phone Name, Rolf PARKS Primary Care Provider [phone] Puia, Martine PharmD Unavailable Puia, Martine PharmD Unavailable Reason for Visit * Reason Comments Med Refill Encounter Details Date Type Department Care Team (Late st Contact Info) Description 05/31/2023 Refill [facility] [address] [place], [place] [phone] Delisa Hilliard MD [address] [place] [address] Osteoarthritis of knee, unspecified laterality, unspecified osteoarthritis type Social History Tobacco Use Types Packs/Day Years Used Date Smoking Tobacco: Former Cigarettes Passive Smoke Exposure: Never Smokeless Tobacco: Never Alcohol Use Standard Drinks/Week Comments Yes 0 (1 standard drink = 0.6 oz pur e alcohol) occassional Depression Answer Date Recorded Patient Health Questionnaire-9 Score 14 07/20/2022 Housing Stability Answer Date Recorded What is your housing situation today? I have riya taylor 02/15/[address] you li ve. Do you have problems with any of the following? None of the above 02/15/2023 Food Insecurity Answer Date Recorded Within the past 12 months, y ou worried that your food would run out before you got money to buy more: Never True 02/15/2023 Within the past 12 months,th e food you bought just didn't last and you didn't have enough money to get more: Never True Transportation Answer Date Recorded In the past 12 months, has l ack of transportation kept you from medical appts, meetings, work or from getting things needed for daily living? No 02/15/2023 Utilities Answer Date Recorded In the past 12 months, has t he electric, gas, oil or water company threatened to shut off services in your home? No 02/15/2023 Depression Answer Date Recorded Patient Health Questionnaire-2 Score 4 07/20/2022 Sex and Gender Information Value Date Recorded Sex Assigned at Male 03/02/2022 10:19 AM EDT Legal Sex Male 10:19 AM EDT Gender Identity Male 05/22/2022 9:34 AM EST Sexual Orientation Don't know 05/22/2022 9: 34 AM EST documented as of this encounter Plan of Treatment Upcoming Encounters Date Type Department Care Team (Late st Contact Info) Description 08/18/2024 10:00 AM EDT Telemedicine [facility] [address] [place] [address] Karla Lewis RN 08/18/2024 11:15 AM EDT Office Visit [facility] [address] [place] [address] Name, MD Rolf [address] [place] [address] documented as of this encounter Goals Goal Patient Goal Type Associated Problems Recent Progress Patient-Stated? Author Hemoglobin A1c < 7 Result Component 6.6( 11:14 AM EST) No Puia, Martine, PharmD Record your blood sugar as directed Result Component No Puia, Martine, PharmD documented as of this encounter Visit Diagnoses Diagnosis Osteoarthritis of knee, unspecified laterality, unspecified osteoarthritis type documented in this encounter Additional Health Concerns Assessment Noted Time PHQ-9 Depression Total Score: 14 023 1:07 PM EDT documented as of this encounter Care Teams Artificial Intelligence Specialist Relationship Specialty Start Date End Date NameRolf MD [address] [place] [address] PCP - General Family Medicine 10/21/17 Puia, Martine, PharmD [address] [place] [address] Pharmacist Internal Medicine 04/20/23 Martine Broussard PharmD [address] [place] [address] Pharmacist Internal Medicine 04/20/23 08/11/23 documented as of this encounter
--- OUTSIDE RECORDS SUMMARY | 2024-06-12 15:29 | XMS_ITS | Encounter Summary ---
Author Organization [employer] Address [address] [place] [address] 7 [place] [address] Care Team Providers Care Burner Technician Name Role Phone Name, Rolf PARKS Primary Care Provider [phone] Martine Broussard PharmD Unavailable [phone] Reason for Visit * Reason Onset Date Comments Med Refill 06/09/2024 Encounter Details Date Type Department Care Team (Late st Contact Info) Description 06/09/2024 Telephone [facility] [address] [place], [place] [phone] Name, MD Rolf [address] [place], [place] [phone] Med Refill Social History Tobacco Use Types Packs/Day Years [...] AM EST documented as of this encounter Miscellaneous Notes * Telephone Encounter - Jil Hansen RN - 06/09/2024 1:02 PM EST TC placed to pt via S breaster (Herbert ID#[id number]) to inform of below provider message, I do not mind prescribing Tessalon for cough but this medication is just for symptoms. The patient has COPD and there is a lot of flu and COVID going around. He should come to the walk-in clinic or any urgent care for evaluation. Advised pt and pt daughter of provider message. Pt daughter states the pt had knee replacement surgery and will not bring him as it puts him at risk to slip and fall. Advisedthat the medication was sent to the pharmacy by the PCP, but encouraged to bring to [facility] as there [place] lot of flu and COVID going around per provider message. Pt daughter reiterated that she does not want to risk him slipping and falling. Pt daughter states the cardiology office called with results and she told them the same thing about not wanting pt to slip and fall so she will not bring him outof house. Pt daughter verbalized understanding and denies further questions or concerns at this time. * Telephone Encounter - Jil Hansen RN - 06/09/2024 11:04 AM EST TC placed to pt via S breaster (Akira ID#[id number]) regarding medication request for benzonatate(Tessalon Perles) 100 MG capsule. Pt daughter Sugeil requesting the doctor send the medication to the pharmacy. Pt daughter reports the pt having a cough that began yesterday and pt was coughing constantly last night. Pt daughter reports it is productive but the pt can't get rid of it. Pt daughter denies the pt having chest pain, SOB, headache, dizziness, blurred vision, fever, or chills. Advisedpt daughter to bring pt to [facility]. Pt daughter states he had knee replacement surgery and does not feel that she needs to bring him to [facility]. Pt daughter reports this is not the first time the pt has had these symptoms and in the past the provider prescribed medication and would like the medication to be prescribed again. Advised to bring pt to [facility] . Pt daughter states if the pt develops chest pain or SOB of breath she will bring to [facility]. Message forwarded to provider to review and advise. * Telephone Encounter - Osmar Gonsalez - 06/09/2024 10:44 AM EST TC from pt requesting medication refill. Medications needing refill : benzonatate (Tessalon Perles) 100 MG capsule To be sent to: [id number] [place], [place] - [address] Pt daughter is requesting the 200mg tablets of this medication. documented in this encounter Plan of Treatment Upcoming Encounters Date Type Department Care Team (Late st Contact Info) Description 08/18/2024 10:00 AM EDT Telemedicine [facility] [address] [place] [address] Karla Lewis, RN 08/18/2024 11:15 AM EDT Office Visit [facility] [address] [place] [address] Name, [place] [address] documented as of this encounter Goals Goal [...] Time PHQ-9 Depression Total Score: 0 12/06/19 24 10:09 AM EDT documented as of this encounter Care Teams Burner Technician Relationship Specialty Start Date End Date Name, MD Rolf [address] [place] [address] PCP - General Family Medicine 10/21/17 Martine Broussard, PharmD [address] [place] [address] Pharmacist Internal Medicine 04/20/23 documented as of this encounter
--- OUTSIDE RECORDS SUMMARY | 2024-06-12 15:29 | XMS_ITS | Encounter Summary ---
Author Organization [employer] Address [address] [place] [address] 7t [place] [address] Care Team Providers Care Inspector Subassembly Name Role Phone Name, Rolf PARKS Primary Care Provider [phone] Martine Broussard PharmD Unavailable [phone] Reason for Visit * Reason Comments Med Refill Encounter Details Date Type Department Care Team ([facility] st Contact Info) Description 02/28/2024 Refill [facility] [address] [place], [place] [phone] Name, MD Rolf [address] [place] [address] COPD exacerbation (CMS/HCC); Anxiety; Osteoarthritis of knee, unspecified laterality, unspecified osteoarthritis type; Chronic pain of left knee Social History Tobacco Use Types Packs/Day Years [...] Info) Description 08/18/2024 10:00 AM EDT Telemedicine [facility] [address] [place] [address] Karla Lewis RN 08/18/2024 11:15 AM EDT Office Visit [facility] [address] [place] [address] Name, MD Rolf [address] [place] [address] documented as of this encounter Goals Goal Patient Goal Type Associated Problems Recent Progress Patient-Stated? Author Hemoglobin A1c < 7 Result Component 6.6( 11:14 AM EST) No Martine Broussard, PharmD Record your blood sugar as directed Result Component No Martine Broussard, PharmD documented as of this encounter Visit Diagnoses Diagnosis COPD exacerbation ([facility]) Obstructive chronic bronchitis with exacerbation Anxiety Anxiety state, unspecified Osteoarthritis of knee, unspecified laterality, unspecified osteoarthritis type Chronic pain of left knee documented in this encounter Additional Health Concerns Assessment Noted Time PHQ-9 Depression Total Score: 0 12/06/19 24 10:09 AM EDT documented as of this encounter Care Teams Inspector Subassembly Relationship Specialty Start Date End Date Name, MD Rolf [address] [place] [address] PCP - General Family Medicine 10/21/17 Martine Broussard PharmD [address] [place] [address] Pharmacist Internal Medicine 04/20/23 documented as of this encounter
--- OUTSIDE RECORDS SUMMARY | 2024-06-12 15:29 | XMS_ITS | Encounter Summary ---
Author Organization [employer] Address [address] [place] [address] 7 [place] [address] Care Team Providers Care Watch Electrician Name Role Phone Name, Rolf PARKS Primary Care Provider [phone] Martine Broussard PharmD Unavailable [phone] Reason for Visit * Reason Comments Med Refill Encounter Details Date Type Department Care Team ([facility] st Contact Info) Description 02/10/2024 Refill [facility] [address] [place], [place] [phone] Name, MD Rolf [address] [place] [address] COPD exacerbation (CMS/HCC) Social History Tobacco Use Types Packs/Day Years [...] Frequency of Binge Drinking Not on file 0809/2023 Score 0 12/06/2023 Depression Answer Date Recorded [...] Info) Description 08/18/2024 10:00 AM EDT Telemedicine [facility] [address] [place] [address] Karla Lewis RN 08/18/2024 11:15 AM EDT Office Visit [facility] [address] [place] [address] Name, MD Rolf [address] [place] [address] documented as of this encounter Goals Goal Patient Goal Type Associated Problems Recent Progress Patient-Stated? Author Hemoglobin A1c < 7 Result Component 6.6( 11:14 AM EST) No Puia, Martine, PharmD Record your blood sugar as directed Result Component No Puia, Martine, PharmD documented as of this encounter Visit Diagnoses Diagnosis COPD exacerbation ([facility]) Obstructive chronic bronchitis with exacerbation documented in this encounter Additional Health Concerns Assessment Noted Time PHQ-9 Depression Total Score: 0 12/06/19 10:09 AM EDT documented as of this encounter Care Teams Watch Electrician Relationship Specialty Start Date End Date Name, MD Rolf [address] [place] [address] PCP - General Family Medicine 10/21/17 Martine Broussard PharmD [address] [place] [address] Pharmacist Internal Medicine 04/20/23 documented as of this encounter
--- OUTSIDE RECORDS SUMMARY | 2024-06-12 15:29 | XMS_ITS | Encounter Summary ---
Author Organization [employer] Address 75 [facility] 7 [place] [address] Care Team Providers Care Web Developer Programmer Name Role Phone Name, Rolf PARKS Primary Care Provider [phone] Puia, Martine PharmD Unavailable Puia, Martine PharmD Unavailable [phone] Reason for Visit * Reason Onset Date Comments Med Refill 05/04/2023 Encounter Details Date Type Department Care Team (Late st Contact Info) Description 05/04/2023 Telephone [facility] [address] [place], [place] [phone] Name, MD Rolf [address] [place], [place] [phone] Med Refill Social History Tobacco Use Types [...] encounter Miscellaneous Notes * Telephone Encounter - Mary Peres LPN - 05/04/2023 3:59 PM EST Gabapentin was sent to [facility] on 04/21/23 and [id number] with 2 refills. * Telephone Encounter - Familia Doyle - 05/04/2023 3:46 PM EST TC from pt's daughter requesting medication refill. Medications needing refill : escitalopram (Lexapro) 10 MG tablet and gabapentin (Neurontin) 300 MG capsule documented in this encounter Plan of Treatment Upcoming Encounters Date Type Department Care Team (Late st Contact Info) Description 08/18/2024 10:00 AM EDT Telemedicine [facility] [address] [place] [address] Karla Lewis RN 08/18/2024 11:15 AM EDT Office Visit [facility] [address] [place] [address] Name, MD Rolf [address] [place] [address] documented as of this encounter Goals Goal Patient Goal Type Associated Problems Recent Progress Patient-Stated? Author Hemoglobin A1c < 7 Result Component 6.6( 5 11:14 AM EST) No Martine Broussard PharmD Record your blood sugar as directed Result Component No Martine Broussard PharmD documented as of this encounter Visit Diagnoses Not on filedocumented in this encounter Additional Health Concerns Assessment Noted Time PHQ-9 Depression Total Score: 14 023 1:07 PM EDT documented as of this encounter Care Teams Web Developer Programmer Relationship Specialty Start Date End Date Name, MD Rolf [address] [place] [address] PCP - General Family Medicine 10/21/17 Martine Broussard PharmD [address] [place] [address] Pharmacist Internal Medicine 04/20/23 Martine Broussard PharmD [address] [place] [address] Pharmacist Internal Medicine 04/20/23 08/11/23 documented as of this encounter
--- OUTSIDE RECORDS SUMMARY | 2024-06-12 15:29 | XMS_ITS | Encounter Summary ---
Author Organization [employer] Address 75 [facility] 7t [place] [address] Care Team Providers Care Supervisor Twisting Department Name Role Phone Name, Rolf PARKS Primary Care Provider [phone] Martine Broussard PharmD Unavailable Encounter Details Date Type Department Care Team ([facility] st Contact Info) Description 06/09/2024 Telephone [facility] [address] [place], [place] [phone] Name, MD Rolf [address] [place] [address] Social History Tobacco Use Types Packs/Day Years [...] encounter Miscellaneous Notes * Telephone Encounter - Rolf Gamble MD - 06/09/2024 12:39 PM EST I called the patient. We discussed results of recent echocardiogram. Ejection fraction is reduced 40 to 45% and he has diastolic dysfunction. I will start low-dose losartan and Jardiance, recheck BMP next week referral to cardiology [facility], documented in this encounter Plan of Treatment Upcoming Encounters Date Type Department Care Team (Late st Contact Info) Description 08/18/2024 10:00 AM EDT Telemedicine [facility] [address] [place] [address] [phone] Karla Lewis, RN 08/18/2024 11:15 AM EDT Office Visit [facility] [address] [place] [address] Rolf Gamble MD [address] [place] [address] Scheduled Orders Name Type Priority Associated Diagnoses Orde r Schedule Basic Metabolic Panel Lab Routine Chronic HFrEF (heart failure with reduced ejection fraction) ([facility]) Expected: 06/09/2024 (Approximate), Expires: 06/09/2025 documented as of this encounter Goals Goal Patient Goal Type Associated Problems Recent Progress Patient-Stated? Author Hemoglobin A1c < 7 Result Component 6.6( 5 11:14 AM EST) No Martine Broussard, PharmD Record your blood sugar as directed Result Component No Martine Broussard, PharmD documented as of this encounter Visit Diagnoses Diagnosis Chronic HFrEF (heart failure with reduced ejection fraction) ([facility])- Primary documented in this encounter Additional Health Concerns Assessment Noted Time PHQ-9 Depression Total Score: 0 12/06/19 24 10:09 AM EDT documented as of this encounter Care Teams Supervisor Twisting Department Relationship Specialty Start Date End Date Name, MD Rolf [address] [place] [address] PCP - General Family Medicine 10/21/17 Martine Broussard, PharmD [address] [place] [address] Pharmacist Internal Medicine 04/20/23 documented as of this encounter
--- OUTSIDE RECORDS SUMMARY | 2024-06-12 15:29 | XMS_ITS | Encounter Summary ---
Author Organization [employer] Address [address] [place] [place] [address] 7 [place] [address] Care Team Providers Care Sales Department Supervisor Name Role Phone Name, Rolf PARKS Primary Care Provider [phone] Martine Broussard PharmD Unavailable [phone] Reason for Visit * Reason Onset Date Comments fyi 02/22/2024 Durable Medical Equipment 02/22/2024 Encounter Details Date Type Department Care Team (Late st Contact Info) Description 02/22/2024 Telephone [facility] [address] [place], [place] [phone] Name, MD Rolf [address] [place] [address] fyi; Durable Medical Equipment Social History Tobacco Use Types Packs/Day Years [...] encounter Miscellaneous Notes * Telephone Encounter - Jw Moreno - 02/22/2024 1:30 PM EDT Tc from Annetta (Daughter) requesting a callback due to pt (Hong Puente) going on surgery 02/28 and needs DME equipment. Annetta (uzbek) [phone] documented in this encounter Plan of Treatment Upcoming Encounters Date Type Department Care Team (Late st Contact Info) Description 08/18/2024 10:00 AM EDT Telemedicine [facility] [address] [place] [phone] Karla Lewis, RN 08/18/2024 11:15 AM EDT Office Visit [facility] [address] [place] [address] Name, MD Rolf [address] [place] [address] documented as of this encounter Goals Goal [...] documented as of this encounter Care Teams Sales Department Supervisor Relationship Specialty Start Date End Date Name, MD Rolf [address] [place] [address] PCP - General Family Medicine 10/21/17 Martine Broussard PharmD [address] [place] [address] Pharmacist Internal Medicine 04/20/23 documented as of this encounter
--- OUTSIDE RECORDS SUMMARY | 2024-06-12 15:29 | XMS_ITS | Encounter Summary ---
Author Organization [employer] Address 75 [facility] 7t [place] [address] Care Team Providers Care Barrel Assembler Name Role Phone Name, Rolf PARKS Primary Care Provider [phone] Puia, Martine PharmD Unavailable [phone] Puia, Martine PharmD Unavailable Reason for Visit * Reason Comments Med Refill Encounter Details Date Type Department Care Team (Late st Contact Info) Description 06/02/2023 Refill [facility] MED & PEDS [address] [place], [place] [phone] Delisa Hilliard MD [address] [place] [address] Osteoarthritis of knee, unspecified laterality, unspecified osteoarthritis [...] is your housing situation today? I have riyajaky taylor 02/15/[address] you [...] [facility] MEDICINE [address] [place] [address] Karla Lewis RN 08/18/2024 11:15 AM EDT Office Visit [facility] MEDICINE [address] [place] [address] Name, MD Rolf [address] [place] [address] documented as of this encounter Goals Goal [...] documented as of this encounter Care Teams Barrel Assembler Relationship Specialty Start Date End Date NameRolf MD [address] [place] [address] PCP - General Family Medicine 10/21/17 Puia, Martine, PharmD [address] [place] [address] Pharmacist Internal Medicine 04/20/23 Martine Broussard PharmD [address] [place] [address] Pharmacist Internal Medicine 04/20/23 08/11/23 documented as of this encounter
--- OUTSIDE RECORDS SUMMARY | 2024-06-12 15:29 | XMS_ITS | Encounter Summary ---
Author Organization [employer] Address [address] [place] [address] 7t [place] [address] Care Team Providers Care Junior Accountant Name Role Phone Name, Rolf PARKS Primary Care Provider [phone] Martine Broussard PharmD Unavailable [phone] Reason for Visit * Reason Comments [employer] RV [employer] RV Encounter Details Date Type Department Care Team (Late st Contact Info) Description 06/09/2024 9:30 AM EST Telemedicine [facility] MEDICINE [address] [place] [address] Karla Lewis RN Chronic pain of left knee Social History [...] AM EST documented as of this encounter Progress Notes * Karla Lewis RN - 06/09/2024 9:30 AM EST S: Pt called for [employer] Revisit, via BLS#[id number]. Prescribed Percocet 5mg Q12hr PRN & Clonazepam 2mgat bedtime PRN. States he has been taking 2-3 doses of Percocet a day, 3 doses on the days when he has physical therapy fhe has been taking 3 doses a day. He's been taking the clonazepam as ordered. Percocet last dose taken this morning. Clonazepam was last taken last night at bedtime. Continues todeny smoking cigarettes, ETOH use, Illicit drug use and marijuana use. Currently rates his pain a 4and states medication is 75% effective at alleviating pain. Current pain site is his left knee. He had a left TKR done April 28, 2024. He states his Clonazepam does help his anxiety and helps him sleep. He speaks with a behavioral health person regularly. O: [employer] Tele Tier 2. Pt currently prescribed Percocet 5mg Q12hr PRN & Clonazepam 2mg at bedtime PRN. ANIMAL ANATOMIST's verified today. Percocet Rx last filled on 06/01/24. Pill counts performed over the phone.Pt's daughter reports he has 38 percocet pills at this time, 39 at least expected. Reviewed Percocet order. Clonazepam Rx last filled on 06/01/24. Pts daughter reports he has 20 clonazepam pills at this time, 19 at least expected. Medication is not overused by patient. Pt and daughter stated they have received his [employer] renewal forms and will mail back to this manual writer. Last PCP visit was 05/31/24. 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 P: Pt to continue taking medication only as prescribed; Next Tele [employer] Renewal appointment scheduledfor 08/18/24 @ 10am, F/U sooner PRN. Appointment reminder mailed. Pt verbalized understanding and agreed to plan documented in this encounter Plan of Treatment Upcoming Encounters Date Type Department Care Team (Late st Contact Info) Description 08/18/2024 10:00 AM EDT Telemedicine [facility] MEDICINE [address] [place] [address] Karla Lewis RN 08/18/2024 11:15 AM EDT Office Visit [facility] MEDICINE [address] [place] [address] Name, MD Rolf [address] [place] [address] documented as of this encounter Goals Goal Patient Goal Type Associated Problems Recent Progress Patient-Stated? Author Hemoglobin A1c < 7 Result Component 6.6( 11:14 AM EST) No Puia, Martine, PharmD Record your blood sugar as directed Result Component No Puia, Martine, PharmD documented as of this encounter Visit Diagnoses Diagnosis Chronic pain of left knee documented in this encounter Additional Health Concerns Assessment Noted Time PHQ-9 Depression Total Score: 0 12/06/19 24 10:09 AM EDT documented as of this encounter Care Teams Junior Accountant Relationship Specialty Start Date End Date NameRolf MD [address] [place] [address] PCP - General Family Medicine 10/21/17 Martine Broussard, PharmD [address] [place] [address] Pharmacist Internal Medicine 04/20/23 documented as of this encounter
--- OUTSIDE RECORDS SUMMARY | 2024-06-12 15:29 | XMS_ITS | Encounter Summary ---
Author Organization [employer] Address 75 [facility] 7t [place] [address] Care Team Providers Care Short Goods Drier Name Role Phone Name, Rolf PARKS Primary Care Provider [phone] Puia, Martine PharmD Unavailable Puia, Martine PharmD Unavailable Reason for Visit * Reason Onset Date Comments Med Refill 05/07/2023 Encounter Details Date Type Department Care Team (Late st Contact Info) Description 05/07/2023 Refill [facility] MEDICINE [address] [place], [place] [phone] Name, MD Rolf [address] [place], [place] [phone] Osteoarthritis of knee, unspecified laterality, unspecified osteoarthritis [...] your housing situation today? I have riya brandon 02/15/[address] you li [...] encounter Miscellaneous Notes * Telephone Encounter - AVINASH Quiroz - 05/12/2023 11:46 AM EST Pt already picke dup refill from 05/05 * Telephone Encounter - Familia Doyle - 05/07/2023 3:51 PM EST TC from pt requesting medication refill. Medications needing refill : traMADol (Ultram) 50 MG tablet To be sent to: [facility] documented in this encounter Plan of Treatment Upcoming Encounters Date Type Department Care Team (Late st Contact Info) Description 08/18/2024 10:00 AM EDT Telemedicine [facility] MEDICINE [address] [place] [address] Karla Lewis RN 08/18/2024 11:15 AM EDT Office Visit [facility] MEDICINE [address] [place] [address] Name, MD Rolf [address] [place] [address] documented as of this encounter Goals Goal Patient Goal Type Associated Problems Recent Progress Patient-Stated? Author Hemoglobin A1c < 7 Result Component 6.6( 5 11:14 AM EST) No Martine Broussard, PharmD Record your blood sugar as directed Result Component No Martine Broussard PharmLexi documented as of this encounter Visit Diagnoses Diagnosis Osteoarthritis of knee, unspecified laterality, unspecified osteoarthritis type documented in this encounter Additional Health Concerns Assessment Noted Time PHQ-9 Depression Total Score: 14 023 1:07 PM EDT documented as of this encounter Care Teams Short Goods Drier Relationship Specialty Start Date End Date Name, MD Rolf [address] [place] [address] PCP - General Family Medicine 10/21/17 Martine Broussard PharmD [address] [place] [address] Pharmacist Internal Medicine 04/20/23 Martine Broussard PharmD [address] [place] [address] Pharmacist Internal Medicine 04/20/23 08/11/23 documented as of this encounter
--- OUTSIDE RECORDS SUMMARY | 2024-06-12 15:29 | XMS_ITS | Encounter Summary ---
Author Organization [employer] Address 75 [facility] 7t [place] [address] Care Team Providers Care Sdc Teacher Name Role Phone Name, Rolf PARKS Primary Care Provider [phone] Martine Broussard PharmD Unavailable [phone] Reason for Visit * Reason Comments Med Refill Encounter Details Date Type Department Care Team (Late st Contact Info) Description 02/18/2024 Refill [facility] MEDICINE [address] [place], [place] [phone] Name, MD Rolf [address] [place] [address] Chronic pain of left knee; COPD exacerbation (CMS/HCC); Anxiety; Osteoarthritis of knee, [...] Info) Description 08/18/2024 10:00 AM EDT Telemedicine [facility] MEDICINE [address] [place] [address] Karla Lewis RN 08/18/2024 11:15 AM EDT Office Visit [facility] MEDICINE [address] [place] [address] Name, MD Rolf [address] [place] [address] documented as of this encounter Goals Goal Patient Goal Type Associated Problems Recent Progress Patient-Stated? Author Hemoglobin A1c < 7 Result Component 6.6( 11:14 AM EST) No Martine Broussard, PharmD Record your blood sugar as directed Result Component No Martine Broussard, PharmD documented as of this encounter Visit Diagnoses Diagnosis Chronic pain of left knee COPD exacerbation (CMS/HCC) Obstructive chronic bronchitis with exacerbation Anxiety Anxiety state, unspecified Osteoarthritis of knee, unspecified laterality, unspecified osteoarthritis type documented in this encounter Additional Health Concerns Assessment Noted Time PHQ-9 Depression Total Score: 0 12/06/19 24 10:09 AM EDT documented as of this encounter Care Teams Sdc Teacher Relationship Specialty Start Date End Date Name, MD Rofl [address] [place] [address] PCP - General Family Medicine 10/21/17 Martine Broussard PharmD [address] [place] [address] Pharmacist Internal Medicine 04/20/23 documented as of this encounter
--- OUTSIDE RECORDS SUMMARY | 2024-06-12 15:29 | XMS_ITS | Encounter Summary ---
Author Organization [employer] Address [address] [place] [address] 7 [place] [address] Care Team Providers Care Health Technical Writer Name Role Phone Name, Rolf PARKS Primary Care Provider [phone] Martine Broussard PharmD Unavailable [phone] Reason for Visit * Reason Comments Med Refill Encounter Details Date Type Department Care Team ([facility] st Contact Info) Description 02/16/[address] [facility] MEDICINE [address] [place], [place] [phone] Name, MD Rolf [address] [place] [address] COPD exacerbation (CMS/HCC); Anxiety Social History Tobacco Use Types Packs/Day Years [...] Info) Description 08/18/2024 10:[address] [facility] MEDICINE [address] [place] [address] Karla Lewis RN 08/18/2024 11:15 AM EDT Office Visit [facility] MEDICINE [address] [place] [address] Name, MD Rolf [address] [place] [address] documented as of this encounter Goals Goal Patient Goal Type Associated Problems Recent Progress Patient-Stated? Author Hemoglobin A1c < 7 Result Component 6.6( 11:14 AM EST) No Puia, Martine, PharmD Record your blood sugar as directed Result Component No Puia, Martine, PharmD documented as of this encounter Visit Diagnoses Diagnosis COPD exacerbation ([facility]) Obstructive chronic bronchitis with exacerbation Anxiety Anxiety state, unspecified documented in this encounter Additional Health Concerns Assessment Noted Time PHQ-9 Depression Total Score: 0 12/06/19 10:09 AM EDT documented as of this encounter Care Teams Health Technical Writer Relationship Specialty Start Date End Date Name, MD Rolf [address] [place] [address] PCP - General Family Medicine 10/21/17 Martine Broussard PharmD [address] [place] [address] Pharmacist Internal Medicine 04/20/23 documented as of this encounter
--- OUTSIDE RECORDS SUMMARY | 2024-06-12 15:29 | XMS_ITS | Encounter Summary ---
Author Organization [employer] Address 75 [facility] 7 [place] [address] Care Team Providers Care Gopherman Name Role Phone Name, Rolf PARKS Primary Care Provider [phone] Puia, Martine PharmD Unavailable [phone] Puia, Martine PharmD Unavailable Reason for Visit * Reason Onset Date Comments Med Refill 05/07/2023 Encounter Details Date Type Department Care Team (Late st Contact Info) Description 05/07/2023 Telephone [facility] MEDICINE [address] [place] [address] Name, MD Rolf [address] [place], [place] [phone] Med Refill Social History Tobacco Use Types [...] Telephone Encounter - Mary Peres LPN - 05/07/2023 3:52 PM EST Medication was sent to [facility] on 04/21/23. * Telephone Encounter - Familia Doyle - 05/07/2023 3:49 PM EST TC from pt requesting medication refill. Medications needing refill : gabapentin (Neurontin) 300 MG capsule To be sent to: [facility] documented in this encounter Plan of Treatment Upcoming Encounters Date Type Department Care Team (Late st Contact Info) Description 08/18/2024 10:00 AM EDT Telemedicine [facility] MEDICINE [address] [place] [address] Karla Lewis RN 08/18/2024 11:15 AM EDT Office Visit [facility] MEDICINE [address] [place] [address] Name, MD Rolf [address] [place] [address] documented as of this encounter Goals Goal Patient Goal Type Associated Problems Recent Progress Patient-Stated? Author Hemoglobin A1c < 7 Result Component 6.6(01/29/202 5 11:14 AM EST) No Martine Broussard, PharmD Record your blood sugar as directed Result Component No Martine Broussard PharmD documented as of this encounter Visit Diagnoses Not on filedocumented in this encounter Additional Health Concerns Assessment Noted Time PHQ-9 Depression Total Score: 14 023 1:07 PM EDT documented as of this encounter Care Teams Gopherman Relationship Specialty Start Date End Date Name, MD Rolf [address] [place] [address] PCP - General Family Medicine 10/21/17 Martine Broussard, PharmD [address] [place] [address] Pharmacist Internal Medicine 04/20/23 Martine Broussard PharmD [address] [place] [address] Pharmacist Internal Medicine 04/20/23 08/11/23 documented as of this encounter
--- OUTSIDE RECORDS SUMMARY | 2024-06-12 15:29 | XMS_ITS | Encounter Summary ---
Author Organization [employer] Address 75 [facility] 7 [place] [address] Care Team Providers Care Picking Crew Supervisor Name Role Phone Name, Rolf PARKS Primary Care Provider [phone] Puia, Martine PharmD Unavailable [phone] Puia, Martine PharmD Unavailable Reason for Visit * Reason Onset Date Comments Med Refill 05/21/2023 Encounter Details Date Type Department Care Team (Late st Contact Info) Description 05/21/2023 Telephone [facility] MEDICINE 230 [place], [place] [phone] Name, MD Rolf [address] [place], [place] [phone] Med Refill Social History Tobacco Use Types [...] Telephone Encounter - Mary Peres LPN - 05/21/2023 9:48 AM EST Medication was sent to [facility] on 04/20/23 with 11 refills. * Telephone Encounter - Brown Giraldo - 05/21/2023 9:30 AM EST TC from pt requesting medication refill. Medications needing refill : dulaglutide (Trulicity) 3 MG/0.5ML solution pen-injector To be sent to: [facility] [place] [place] - [address] [place] [address] documented in this encounter Plan of Treatment Upcoming Encounters Date Type Department Care Team (Late st Contact Info) Description 08/18/2024 10:00 AM EDT Telemedicine [facility] MEDICINE [address] [place] [address] Karla Lewis RN 08/18/2024 11:15 AM EDT Office Visit [facility] MEDICINE [address] [place] [address] Name, MD Rolf [address] [place] [address] documented as of this encounter Goals Goal [...] documented as of this encounter Care Teams Picking Crew Supervisor Relationship Specialty Start Date End Date Name, MD Rolf [address] [place] [address] PCP - General Family Medicine 10/21/17 Martine Broussard PharmD [address] [place] [address] Pharmacist Internal Medicine 04/20/23 Martine Broussard PharmD [address] [place] [address] Pharmacist Internal Medicine 04/20/23 08/11/23 documented as of this encounter
--- OUTSIDE RECORDS SUMMARY | 2024-06-12 15:29 | XMS_ITS | Encounter Summary ---
Author Organization [employer] Address 75 [facility] 7t [place] [address] Care Team Providers Care Medical Delivery Technician Name Role Phone Name, Rolf PARKS Primary Care Provider Martine Broussard PharmD Unavailable [phone] Encounter Details Date Type Department Care Team ([facility] st Contact Info) Description 02/22/2024 Telephone [facility] MEDICINE [address] [place], [place] [phone] Name, MD Rolf [address] [place] [address] Social History Tobacco Use Types Packs/Day Years [...] Info) Description 08/18/2024 10:00 AM EDT Telemedicine [facility] MEDICINE [address] [place] [address] Karla Lewis RN 08/18/2024 11:15 AM EDT Office Visit [facility] MEDICINE [address] [place] [address] Rolf Gamble MD [address] [place] [address] documented as of this encounter Goals Goal Patient Goal Type Associated Problems Recent Progress Patient-Stated? Author Hemoglobin A1c < 7 Result Component 6.6( 11:14 AM EST) No Puia, Martine, PharmD Record your blood sugar as directed Result Component No Puia Martine, PharmD documented as of this encounter Visit Diagnoses Not on filedocumented in this encounter Additional Health Concerns Assessment Noted Time PHQ-9 Depression Total Score: 0 12/06/19 10:09 AM EDT documented as of this encounter Care Teams Medical Delivery Technician Relationship Specialty Start Date End Date Rolf Gamble MD [address] [place] [address] PCP - General Family Medicine 10/21/17 Martine Broussard PharmD [address] [place] [address] Pharmacist Internal Medicine 04/20/23 documented as of this encounter
--- OUTSIDE RECORDS SUMMARY | 2024-06-12 15:29 | XMS_ITS | Encounter Summary ---
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
--- OUTSIDE RECORDS SUMMARY | 2024-06-12 15:29 | XMS_ITS | Encounter Summary ---
Author Organization [employer] Address [address] [place] [address] 7 [place] [address] Care Team Providers Care Ms Sql Dba Name Role Phone Name, Rolf PARKS Primary Care Provider [phone] Martine Broussard PharmD Unavailable [phone] Reason for Visit * Reason Comments Med Refill Encounter Details Date Type Department Care Team ([facility] st Contact Info) Description 02/11/2024 Refill [facility] MED[facility]INE [address] [place], [place] [phone] Name, MD Rolf [address] [place] [address] Anxiety; Chronic pain of left knee; Osteoarthritis of knee, unspecified laterality, unspecified osteoarthritis [...] 08/18/2024 10:00 AM EDT Telemedicine [facility] MEDICINE [address] [place] [address] Karla Lewis RN 08/18/2024 11:15 AM EDT Office Visit [facility] MED[facility]INE [address] [place] [address] Name, MD Rolf [address] [place] [address] documented as of this encounter Goals Goal Patient Goal Type Associated Problems Recent Progress Patient-Stated? Author Hemoglobin A1c < 7 Result Component 6.6( 11:14 AM EST) No CarlosiaMartine, PharmD Record your blood sugar as directed Result Component No Puia Martine, PharmD documented as of this encounter Visit Diagnoses Diagnosis Anxiety Anxiety state, unspecified Chronic pain of left knee Osteoarthritis of knee, unspecified laterality, unspecified osteoarthritis type documented in this encounter Additional Health Concerns Assessment Noted Time PHQ-9 Depression Total Score: 0 12/06/19 24 10:09 AM EDT documented as of this encounter Care Teams Ms Sql Dba Relationship Specialty Start Date End Date Name, MD Rolf [address] [place] [address] PCP - General Family Medicine 10/21/17 Martine Broussard PharmD [address] [place] [address] Pharmacist Internal Medicine 04/20/23 documented as of this encounter
--- OUTSIDE RECORDS SUMMARY | 2024-06-12 15:29 | XMS_ITS | Encounter Summary ---
Author Organization [employer] Address [address] [place] [address] 7 [place] [address] Care Team Providers Care Manager Wellness Name Role Phone Name, Rolf PARKS Primary Care Provider [phone] Martine Broussard PharmD Unavailable [phone] Reason for Visit * Reason Comments Med Refill Encounter Details Date Type Department Care Team (Late st Contact Info) Description 03/10/2024 Refill [facility] [address] [place], [place] [phone] Name, MD Rolf [address] [place] [address] Osteoarthritis of knee, unspecified laterality, unspecified osteoarthritis [...] Info) Description 08/18/2024 10:00 AM EDT Telemedicine [facility] [address] [place] [phone] Karla Lewis RN 08/18/2024 11:15 AM EDT Office Visit [facility] [address] [place] [address] Name, MD Rolf [address] [place] [address] documented as of this encounter Goals Goal Patient Goal Type Associated Problems Recent Progress Patient-Stated? Author Hemoglobin A1c < 7 Result Component 6.6( 11:14 AM EST) No PuMartine camarillo, PharmD Record your blood sugar as directed Result Component No Lance Broussardyssa, PharmD documented as of this encounter Visit Diagnoses Diagnosis Osteoarthritis of knee, unspecified laterality, unspecified osteoarthritis type documented in this encounter Additional Health Concerns Assessment Noted Time PHQ-9 Depression Total Score: 0 12/06/19 10:09 AM EDT documented as of this encounter Care Teams Manager Wellness Relationship Specialty Start Date End Date Name, MD Rolf [address] [place] [address] PCP - General Family Medicine 10/21/17 Martine Broussard PharmD 230 [place] [address] Pharmacist Internal Medicine 04/20/23 documented as of this encounter
--- OUTSIDE RECORDS SUMMARY | 2024-06-12 15:29 | XMS_ITS | Encounter Summary ---
Author Organization [employer] Address 75 [facility] 7 [place] [address] Care Team Providers Care Calculus Professor Name Role Phone Name, Rolf PARKS Primary Care Provider [phone] Martine Broussard PharmD Unavailable [phone] Reason for Visit * Reason Comments Med Refill Encounter Details Date Type Department Care Team ([facility] st Contact Info) Description 02/18/2024 Refill [facility] MED[facility]INE 230 [place], [place] [phone] Vivian Barajas, ANP 230 [place] [address] Diabetes mellitus type 2 with neurological manifestations [...] Info) Description 08/18/2024 10:00 AM EDT Telemedicine [facility] MEDICINE [address] [place] [phone] Karla Lewis RN 08/18/2024 11:15 AM EDT Office Visit [facility] MED[facility]INE [address] [place] [address] Name, MD Rolf [address] [place] [address] documented as of this encounter Goals Goal [...] documented as of this encounter Care Teams Calculus Professor Relationship Specialty Start Date End Date Name, MD Rolf [address] [place] [address] PCP - General Family Medicine 10/21/17 Martine Broussard PharmD [address] [place] [address] Pharmacist Internal Medicine 04/20/23 documented as of this encounter
--- OUTSIDE RECORDS SUMMARY | 2024-06-12 15:29 | XMS_ITS | Encounter Summary ---
Author Organization [employer] Address 75 [facility] 7t [place] [address] Care Team Providers Care Concrete Float Maker Name Role Phone Name, Rolf PARKS Primary Care Provider [phone] Martine Broussard PharmD Unavailable [phone] Reason for Visit * Reason Onset Date Comments Recommend FORK LIFT MECHANIC Tele Tier 2 06/09/2024 Encounter Details Date Type Department Care Team ([facility] st Contact Info) Description 06/09/2024 Telephone [facility] [address] [place] [address] Karla Lewis, DARYN Recommend FORK LIFT MECHANIC Tele Tier 2 Social History Tobacco Use Types Packs/Day Years [...] encounter Miscellaneous Notes * Telephone Encounter - Karla Lewis RN - 06/09/2024 7:17 AM EST What FORK LIFT MECHANIC Tier would you like this patient to be? I recommend Tele Tier 2, please let me know if you agree or would rather patient be in another FORK LIFT MECHANIC Tier. Tier 1 = HIGH RISK, Monthly FORK LIFT MECHANIC visits Tier 2 = MODerate RISK, Q3 Month visits Tier 3 = LOW RISK = Q4-6 month visits documented in this encounter Plan of Treatment Upcoming Encounters Date Type Department Care Team (Late st Contact Info) Description 08/18/2024 10:00 AM EDT Telemedicine [facility] MED[facility]INE [address] [place] [address] Karla Lewis RN 08/18/2024 11:15 AM EDT Office Visit [facility] [address] [place] [phone] Name, MD Rolf [address] [place] [address] documented as of this encounter Goals Goal [...] documented as of this encounter Care Teams Concrete Float Maker Relationship Specialty Start Date End Date Name, MD Rolf 230 [place] [address] PCP - General Family Medicine 10/21/17 Martine Broussard PharmD 230 [place] [address] Pharmacist Internal Medicine 04/20/23 documented as of this encounter
--- OUTSIDE RECORDS SUMMARY | 2024-06-12 15:29 | XMS_ITS | Encounter Summary ---
Author Organization [employer] Address 75 [facility] 7t [place] [address] Care Team Providers Care After School Tutor Name Role Phone Name, Rolf PARKS Primary Care Provider [phone] Puia, Martine PharmD Unavailable [phone] Puia, Martine PharmD Unavailable Reason for Visit * Reason Comments Med Refill Encounter Details Date Type Department Care Team (Late st Contact Info) Description 06/02/2023 Refill [facility] [address] [place], [place] [phone] Delisa Hilliard MD 230 [place] [address] Osteoarthritis of knee, unspecified laterality, unspecified osteoarthritis [...] Info) Description 08/18/2024 10:00 AM EDT Telemedicine [facility] MEDICINE [address] [place] [address] Karla Lewis RN 08/18/2024 11:15 AM EDT Office Visit [facility] MEDICINE [address] [place] [address] Name, MD Rolf [address] [place] [address] documented as of this encounter Goals Goal [...] documented as of this encounter Care Teams After School Tutor Relationship Specialty Start Date End Date NameRolf MD [address] [place] [address] PCP - General Family Medicine 10/21/17 Puia, Martine, PharmD 230 [place] [address] Pharmacist Internal Medicine 04/20/23 Martine Broussard PharmD 230 [place] [address] Pharmacist Internal Medicine 04/20/23 08/11/23 documented as of this encounter
--- OUTSIDE RECORDS SUMMARY | 2024-06-12 15:29 | XMS_ITS | Encounter Summary ---
Author Organization [employer] Address [address] [place] [address] 7 [place] [address] Care Team Providers Care Clinical Sciences Professor Name Role Phone Name, Rolf PARKS Primary Care Provider [phone] Martine Broussard PharmD Unavailable [phone] Reason for Visit * Reason Comments Med Refill Encounter Details Date Type Department Care Team ([facility] st Contact Info) Description 02/09/2024 Refill [facility] 230 [place], [place] [phone] Name, MD Rolf 230 [place] [address] COPD exacerbation (CMS/HCC) Social History Tobacco Use [...] Info) Description 08/18/2024 10:00 AM EDT Telemedicine [facility] [address] [place] [phone] Karla Lewis RN 08/18/2024 11:15 AM EDT Office Visit [facility] [address] [place] [address] Name, MD Rolf [address] [place] [address] documented as of this encounter Goals Goal Patient Goal Type Associated Problems Recent Progress Patient-Stated? Author Hemoglobin A1c < 7 Result Component 6.6( 11:14 AM EST) No Puia, Martine, PharmD Record your blood sugar as directed Result Component No Puia, Martine, PharmD documented as of this encounter Visit Diagnoses Diagnosis COPD exacerbation ([facility] [place] [facility]) Obstructive chronic bronchitis with exacerbation documented in this encounter Additional Health Concerns Assessment Noted Time PHQ-9 Depression Total Score: 0 12/06/19 10:09 AM EDT documented as of this encounter Care Teams Clinical Sciences Professor Relationship Specialty Start Date End Date Name, MD Rolf 230 [place] [address] PCP - General Family Medicine 10/21/17 Martine Broussard PharmD [address] [place] [address] Pharmacist Internal Medicine 04/20/23 documented as of this encounter
--- OUTSIDE RECORDS SUMMARY | 2024-06-12 15:29 | XMS_ITS | Encounter Summary ---
Author Organization [employer] Address 75 [facility] 7t [place] [address] Care Team Providers Care Paint Dipper Name Role Phone Name, Rolf PARKS Primary Care Provider [phone] Martine Broussard PharmD Unavailable Reason for Visit * Reason Comments Med Refill Encounter Details Date Type Department Care Team ([facility] st Contact Info) Description 02/22/2024 Refill [facility] MED[facility]INE 230 [place], [place] [phone] Name, MD Rolf 230 [place] [address] Chronic pain of left knee; COPD exacerbation (CMS/HCC); Osteoarthritis of knee, unspecified laterality, unspecified osteoarthritis [...] Frequency of Binge Drinking Not on file 080 09/2023 Score 0 12/06/2023 Depression Answer Date [...] Info) Description 08/18/2024 10:00 AM EDT Telemedicine [facility]INE [address] [place] [address] Karla Lewis RN 08/18/2024 11:15 AM EDT Office Visit [facility] [address] [place] [address] Name, MD Rolf [address] [place] [address] documented as of this encounter Goals Goal Patient Goal Type Associated Problems Recent Progress Patient-Stated? Author Hemoglobin A1c < 7 Result Component 6.6( 11:14 AM EST) No Martine Broussard, PharmD Record your blood sugar as directed Result Component No Martine Broussard, PharmD documented as of this encounter Visit Diagnoses Diagnosis Chronic pain of left knee COPD exacerbation (CMS/HCC) Obstructive chronic bronchitis with exacerbation Osteoarthritis of knee, unspecified laterality, unspecified osteoarthritis type documented in this encounter Additional Health Concerns Assessment Noted Time PHQ-9 Depression Total Score: 0 12/06/19 24 10:09 AM EDT documented as of this encounter Care Teams Paint Dipper Relationship Specialty Start Date End Date Name, MD Rolf 230 [place] [address] PCP - General Family Medicine 10/21/17 Martine Broussard PharmD [address] [place] [address] Pharmacist Internal Medicine 04/20/23 documented as of this encounter
--- OUTSIDE RECORDS SUMMARY | 2024-06-12 15:30 | XMS_ITS | Encounter Summary ---
Author Organization [employer] Address [address] [place] [address] 7 [place] [address] Care Team Providers Care Filter Tank Operator Name Role Phone NameRolf MD Primary Care Provider [phone] Martine Broussard PharmD Unavailable [phone] Reason for Visit * Reason Onset Date Comments Prior Authorization 04/25/2024 Encounter Details Date Type Department Care Team (Late st Contact Info) Description 04/25/2024 Telephone [facility] [address] [place], [place] [phone] Name, MD Rolf [address] [place] [address] Prior Authorization Social History Tobacco Use Types Packs/Day Years [...] encounter Miscellaneous Notes * Telephone Encounter - Mandy Strange - 04/27/2024 3:45 PM EST Good afternoon, PA required for Diclofenac Sodium 1% gel ( A5 Not Covered Under Part D Law, OTC is excluded by CMS ). Please advise if agree with PA or if changing medication. Thank you * Telephone Encounter - Familia Doyle - 04/25/2024 9:51 AM EST Tc from [facility] pharmacy stating Diclofenac Sodium 1 % gel need a PA. documented in this encounter Plan of Treatment Upcoming Encounters Date Type Department Care Team (Late st Contact Info) Description 08/18/2024 10:00 AM EDT Telemedicine [facility] [address] [place] [address] Karla Lewis RN 08/18/2024 11:15 AM EDT Office Visit [facility] [address] [place] [address] Name, MD Rolf [address] [place] [address] documented as of this encounter Goals Goal Patient Goal Type Associated Problems Recent Progress Patient-Stated? Author Hemoglobin A1c < 7 Result Component 6.6( 11:14 AM EST) No PuiaMartine, PharmD Record your blood sugar as directed Result Component No Lance Broussardyssa, PharmD documented as of this encounter Visit Diagnoses Not on filedocumented in this encounter Additional Health Concerns Assessment Noted Time PHQ-9 Depression Total Score: 0 12/06/19 24 10:09 AM EDT documented as of this encounter Care Teams Filter Tank Operator Relationship Specialty Start Date End Date Name, MD Rolf [address] [place] [address] PCP - General Family Medicine 10/21/17 Martine Broussard, PharmD [address] [place] [address] Pharmacist Internal Medicine 04/20/23 documented as of this encounter
--- OUTSIDE RECORDS SUMMARY | 2024-06-12 15:30 | XMS_ITS | Encounter Summary ---
Author Organization [employer] Address 75 [facility] 7t [place] [address] Care Team Providers Care Automatic Tire Tester Name Role Phone Name, Rolf PARKS Primary Care Provider [phone] Martine Broussard PharmD Unavailable [phone] Reason for Visit * Reason Comments Med Refill Encounter Details Date Type Department Care Team ([facility] st Contact Info) Description 09/15/2023 Refill [facility] MED[facility]INE 230 [place], [place] [phone] Name, MD Rolf 230 [place] [address] Osteoarthritis of knee, unspecified laterality, unspecified osteoarthritis [...] Info) Description 08/18/2024 10:00 AM EDT Telemedicine [facility] MEDICINE [address] [place] [address] Karla Lewis RN 08/18/2024 11:15 AM EDT Office Visit [facility] MEDICINE [address] [place] [address] Name, MD Rolf [address] [place] [address] documented as of this encounter Goals Goal [...] documented as of this encounter Care Teams Automatic Tire Tester Relationship Specialty Start Date End Date Rolf Gamble MD [address] [place] [address] PCP - General Family Medicine 10/21/17 PuiaLanceMartine, PharmD [address] [place] [address] Pharmacist Internal Medicine 04/20/23 documented as of this encounter
--- OUTSIDE RECORDS SUMMARY | 2024-06-12 15:30 | XMS_ITS | Encounter Summary ---
Author Organization [employer] Address 75 [facility] 7t [place] [address] Care Team Providers Care Group Leader Name Role Phone Name, Rolf PARKS Primary Care Provider [phone] Puia, Martine PharmD Unavailable [phone] Puia, Martine PharmD Unavailable Reason for Visit * Reason Comments Med Refill Encounter Details Date Type Department Care Team (Late st Contact Info) Description 06/22/2023 Refill [facility] 230 [place], [place] [phone] Name, MD Rolf [address] [place], [place] [phone] Osteoarthritis of knee, unspecified laterality, unspecified osteoarthritis [...] Info) Description 08/18/2024 10:00 AM EDT Telemedicine [facility] [address] [place] [address] Karla Lewis RN 08/18/2024 11:15 AM EDT Office Visit [facility] [address] [place] [address] Name, MD Rolf [address] [place] [address] documented as of this encounter Goals Goal [...] documented as of this encounter Care Teams Group Leader Relationship Specialty Start Date End Date NameRolf MD [address] [place] [address] PCP - General Family Medicine 10/21/17 Puia, Martine, PharmD [address] [place] [address] Pharmacist Internal Medicine 04/20/23 Martine Broussard, GarrettD [address] [place] [address] Pharmacist Internal Medicine 04/20/23 08/11/23 documented as of this encounter
--- OUTSIDE RECORDS SUMMARY | 2024-06-12 15:30 | XMS_ITS | Encounter Summary ---
Author Organization [employer] Address 75 [facility] 7 [place] [address] Care Team Providers Care Darklight Inspector Name Role Phone NameRolf MD Primary Care Provider [phone] Martine Broussard PharmD Unavailable [phone] Reason for Visit * Reason Onset Date Comments Durable Medical Equipment 04/05/2024 Encounter Details Date Type Department Care Team (Late st Contact Info) Description 04/05/2024 Telephone [facility] MEDICINE 230 [place], [place] [phone] Name, MD Rolf 230 [place] [address] Durable Medical Equipment Social History Tobacco Use [...] encounter Miscellaneous Notes * Telephone Encounter - Margaret Santana RN - 04/13/2024 1:17 PM EST RN called pt to triage below. Pt states he has a f/u with ortho tomorrow d/t knee surgery unreleated to fall. Pt asing for a commode for after surgery. Pt denies any trouble defers a [facility] appt. Pleasereview and advise, thank you. Tc from pt daughter requesting a Portable toilet due to him falling yesterday and not reaching the bathroom. If any questions contact pt Daughter at [phone] * Telephone Encounter - Kip Grant - 04/05/2024 3:03 PM EST Tc from pt daughter requesting a Portable toilet due to him falling yesterday and not reaching the bathroom. If any questions contact pt Daughter at [phone] documented in this encounter Plan of Treatment Upcoming Encounters Date Type Department Care Team (Late st Contact Info) Description 08/18/2024 10:00 AM EDT Telemedicine [address] [address] Karla Lewis RN 08/18/2024 11:15 AM EDT Office Visit [facility] MEDICINE [address] [place] [address] Name, MD Rolf [address] [place] [address] documented as of this encounter Goals Goal [...] documented as of this encounter Care Teams Darklight Inspector Relationship Specialty Start Date End Date Name, MD Rolf [address] [place] [address] PCP - General Family Medicine 10/21/17 Martine Broussard, PharmD [address] [place] [address] Pharmacist Internal Medicine 04/20/23 documented as of this encounter
--- OUTSIDE RECORDS SUMMARY | 2024-06-12 15:30 | XMS_ITS | Encounter Summary ---
Author Organization [employer] Address 75 [facility] 7t [place] [address] Care Team Providers Care Gaggerman Name Role Phone Name, Rolf PARKS Primary Care Provider [phone] Puia, Martine PharmD Unavailable Puia, Martine PharmD Unavailable Reason for Visit * Reason Comments Med Refill Encounter Details Date Type Department Care Team (Late st Contact Info) Description 07/03/2023 Refill [facility] MEDICINE 230 [place], [place] [phone] Name, MD Rolf 230 [place], [place] [phone] Osteoarthritis of knee, unspecified laterality, unspecified osteoarthritis [...] Description 08/18/2024 10:00 AM EDT Telemedicine [facility] MEDICINE [address] [place] [address] Karla Lewis RN 08/18/2024 11:15 AM EDT Office Visit [facility] MED[facility]INE [address] [place] [address] Name, MD Rolf [address] [place] [address] documented as of this encounter Goals Goal [...] documented as of this encounter Care Teams Gaggerman Relationship Specialty Start Date End Date NameRolf MD [address] [place] [address] PCP - General Family Medicine 10/21/17 Puia, Martine, PharmD [address] [place] [address] Pharmacist Internal Medicine 04/20/23 Martine Broussard, GarrettD [address] [place] [address] Pharmacist Internal Medicine 04/20/23 08/11/23 documented as of this encounter
--- OUTSIDE RECORDS SUMMARY | 2024-06-12 15:30 | XMS_ITS | Encounter Summary ---
Author Organization [employer] Address 75 [facility] 7 [place] [address] Care Team Providers Care Barrel Turner Name Role Phone Name, Rolf PARKS Primary Care Provider [phone] Martine Broussard PharmD Unavailable [phone] Reason for Visit * Reason Comments Med Refill Encounter Details Date Type Department Care Team ([facility] st Contact Info) Description 03/23/2024 Refill [facility] MEDICINE 230 [place], [place] [phone] Vivian Barajas, ANP 230 [place] [address] Diabetes mellitus type 2 with neurological manifestations [...] Description 08/18/2024 10:00 AM EDT Telemedicine [facility] MEDICINE [address] [place] [address] Karla Lewis RN 08/18/2024 11:15 AM EDT Office Visit [facility] MEDICINE [address] [place] [address] Name, MD Rolf [address] [place] [address] documented as of this encounter Goals Goal [...] as of this encounter Care Teams Barrel Turner Relationship Specialty Start Date End Date Name, MD Rolf [address] [place] [address] PCP - General Family Medicine 10/21/17 Martine Broussard PharmD [address] [place] [address] Pharmacist Internal Medicine 04/20/23 documented as of this encounter
--- OUTSIDE RECORDS SUMMARY | 2024-06-12 15:30 | XMS_ITS | Encounter Summary ---
Author Organization [employer] Address 75 [facility] 7t [place] [address] Care Team Providers Care Rat Farmer Name Role Phone Name, Rolf PARKS Primary Care Provider [phone] Puia, Martine PharmD Unavailable [phone] Puia, Martine PharmD Unavailable Reason for Visit * Reason Comments Med Refill Encounter Details Date Type Department Care Team ([facility] st Contact Info) Description 05/31/2023 Refill [facility]ICINE 230 [place], [place] [phone] Mary Mcguire DO 230 [place], [place] [phone] Osteoarthritis of knee, unspecified laterality, unspecified osteoarthritis [...] 08/18/2024 10:00 AM EDT Telemedicine [facility] MEDICINE [address] [place] [address] Karla Lewis RN 08/18/2024 11:15 AM EDT Office Visit [facility] MEDICINE [address] [place] [address] Name, MD Rolf [address] [place] [address] documented as of this encounter Goals Goal [...] documented as of this encounter Care Teams Rat Farmer Relationship Specialty Start Date End Date NameRolf MD [address] [place] [address] PCP - General Family Medicine 10/21/17 PuiaLanceMartine, PharmD 230 [place] [address] Pharmacist Internal Medicine 04/20/23 Martine Broussard PharmD 230 [place] [address] Pharmacist Internal Medicine 04/20/23 08/11/23 documented as of this encounter
--- OUTSIDE RECORDS SUMMARY | 2024-06-12 15:30 | XMS_ITS | Encounter Summary ---
Author Organization [employer] Address [address] [place] [address] 7 [place] [address] Care Team Providers Care Oil Tanker Captain Name Role Phone Name, Rolf PARKS Primary Care Provider [phone] Martine Broussard PharmD Unavailable [phone] Reason for Visit * Reason Comments Med Refill Encounter Details Date Type Department Care Team ([facility] st Contact Info) Description 05/31/2024 Refill [facility] MEDICINE 230 [place], [place] [phone] Name, MD Rolf 230 [place] [address] Osteoarthritis of both knees, unspecified osteoarthritis type Social History Tobacco Use [...] Info) Description 08/18/2024 10:00 AM EDT Telemedicine [facility] MEDICINE [address] [place] [address] Karla Lewis RN 08/18/2024 11:15 AM EDT Office Visit [facility] MED[facility]INE [address] [place] [address] Name, MD Rolf [address] [place] [address] documented as of this encounter Goals Goal Patient Goal Type Associated Problems Recent Progress Patient-Stated? Author Hemoglobin A1c < 7 Result Component 6.6( 11:14 AM EST) No Martine Broussard, PharmD Record your blood sugar as directed Result Component No Martine Broussard, PharmD documented as of this encounter Visit Diagnoses Diagnosis Osteoarthritis of both knees, unspecified osteoarthritis type documented in this encounter Additional Health Concerns Assessment Noted Time PHQ-9 Depression Total Score: 0 12/06/19 10:09 AM EDT documented as of this encounter Care Teams Oil Tanker Captain Relationship Specialty Start Date End Date Name, MD Rolf 230 [place] [address] PCP - General Family Medicine 10/21/17 Martine Broussard PharmD 230 [place] [address] Pharmacist Internal Medicine 04/20/23 documented as of this encounter
--- OUTSIDE RECORDS SUMMARY | 2024-06-12 15:30 | XMS_ITS | Encounter Summary ---
Author Organization [employer] Address [address] [place] [address] 7 [place] [address] Care Team Providers Care Medical Education Coordinator Name Role Phone Name, Rolf PARKS Primary Care Provider [phone] Martine Broussard PharmD Unavailable [phone] Reason for Visit * Reason Comments Med Refill Encounter Details Date Type Department Care Team (Late st Contact Info) Description 03/08/2024 Refill [facility] MEDICINE 230 [place], [place] [phone] Name, MD Rolf 230 [place] [address] Osteoarthritis of knee, unspecified laterality, unspecified osteoarthritis [...] Info) Description 08/18/2024 10:00 AM EDT Telemedicine [facility] MEDICINE [address] [place] [address] Karla Lewis RN 08/18/2024 11:15 AM EDT Office Visit [facility] MEDICINE [address] [place] [address] Name, MD Rolf [address] [place] [address] documented as of this encounter Goals Goal [...] as of this encounter Care Teams Medical Education Coordinator Relationship Specialty Start Date End Date Name, MD Rolf 230 [place] [address] PCP - General Family Medicine 10/21/17 Martine Broussard PharmD 230 [place] [address] Pharmacist Internal Medicine 04/20/23 documented as of this encounter
--- OUTSIDE RECORDS SUMMARY | 2024-06-12 15:30 | XMS_ITS | Encounter Summary ---
Author Organization [employer] Address [address] [place] [address] 7 [place] [address] Care Team Providers Care Car Ferry Captain Name Role Phone Name, Rolf PARKS Primary Care Provider [phone] Martine Broussard PharmD Unavailable [phone] Reason for Visit * Reason Comments Med Refill Encounter Details Date Type Department Care Team ([facility] st Contact Info) Description 03/23/[address] [facility] MEDICINE 230 [place], [place] [phone] Name, MD Rolf 230 [place] [address] Anxiety Social History Tobacco Use Types Packs/Day [...] 08/18/2024 10:00 AM EDT Telemedicine [facility] MEDICINE [address] [place] [address] Karla Lewis RN 08/18/2024 11:15 AM EDT Office Visit [facility] MEDICINE [address] [place] [address] Name, MD Rolf [address] [place] [address] documented as of this encounter Goals Goal Patient Goal Type Associated Problems Recent Progress Patient-Stated? Author Hemoglobin A1c < 7 Result Component 6.6( 11:14 AM EST) No Puia, Martine, PharmD Record your blood sugar as directed Result Component No Puia, Martine, PharmD documented as of this encounter Visit Diagnoses Diagnosis Anxiety Anxiety state, unspecified documented in this encounter Additional Health Concerns Assessment Noted Time PHQ-9 Depression Total Score: 0 12/06/19 24 10:09 AM EDT documented as of this encounter Care Teams Car Ferry Captain Relationship Specialty Start Date End Date Name, MD Rolf 230 [place] [address] PCP - General Family Medicine 10/21/17 Martine Broussard, GarrettD 230 [place] [address] Pharmacist Internal Medicine 04/20/23 documented as of this encounter
--- OUTSIDE RECORDS SUMMARY | 2024-06-12 15:30 | XMS_ITS | Encounter Summary ---
Author Organization [employer] Address [address] [place] [address] 7 [place] [address] Care Team Providers Care Caterpillar Mechanic Name Role Phone Name, Rolf PARKS Primary Care Provider [phone] Martine Broussard PharmD Unavailable [phone] Reason for Visit * Reason Onset Date Comments Med Refill 04/03/2024 Encounter Details Date Type Department Care Team (Late st Contact Info) Description 04/03/[address] [facility] MEDICINE 230 [place], [place] [phone] Name, MD Rolf 230 [place] [address] Med Refill Social History Tobacco Use Types [...] Telephone Encounter - Mary Peres LPN - 04/03/2024 10:43 AM EST Medication was sent to [facility] #[id number] on 03/06/24 #30 with 3 refills. * Telephone Encounter - Meli Henao - 04/03/2024 10:42 AM EST TC from pt requesting medication refill. Medications needing refill : traZODone (Desyrel) 50 MG tablet To be sent to: [id number] - [place] [address] [address] [facility] [place] documented in this encounter Plan of Treatment Upcoming Encounters Date Type Department Care Team ([facility] st Contact Info) Description 08/18/2024 10:00 AM EDT Telemedicine [facility] MEDICINE [address] [place] [address] Krala Lewis RN 08/18/2024 11:15 AM EDT Office Visit [facility] MEDICINE [address] [place] [address] NameRolf MD [address] [place] [address] documented as of this encounter Goals Goal Patient Goal Type Associated Problems Recent Progress Patient-Stated? Author Hemoglobin A1c < 7 Result Component 6.6( 11:14 AM EST) No Puia, Martine, PharmD Record your blood sugar as directed Result Component No CarlosiaLanceMartine, PharmD documented as of this encounter Visit Diagnoses Not on filedocumented in this encounter Additional Health Concerns Assessment Noted Time PHQ-9 Depression Total Score: 0 12/06/19 10:09 AM EDT documented as of this encounter Care Teams Caterpillar Mechanic Relationship Specialty Start Date End Date NameRolf MD [address] [place] [address] PCP - General Family Medicine 10/21/17 Martine Broussard, PharmD [address] [place] [address] Pharmacist Internal Medicine 04/20/23 documented as of this encounter
--- OUTSIDE RECORDS SUMMARY | 2024-06-12 15:30 | XMS_ITS | Encounter Summary ---
Author Organization [employer] Address [address] [place] [address] 7 [place] [address] Care Team Providers Care Financial Developer Name Role Phone Name, Rolf PARKS Primary Care Provider [phone] Martine Broussard PharmD Unavailable [phone] Reason for Visit * Reason Comments Med Refill Encounter Details Date Type Department Care Team ([facility] st Contact Info) Description 05/18/2024 Refill [facility] MEDICINE 230 [place], [place] [phone] Name, MD Rolf 230 [place] [address] Anxiety Social History Tobacco Use Types Packs/Day [...] 08/18/2024 10:00 AM EDT Telemedicine [facility] MEDICINE [address] [place] [address] Karla Lewis RN 08/18/2024 11:15 AM EDT Office Visit [facility] MEDICINE [address] [place] [address] Name, MD Rolf [address] [place] [address] documented as of this encounter Goals Goal [...] documented as of this encounter Care Teams Financial Developer Relationship Specialty Start Date End Date Name, MD Rolf 230 [place] [address] PCP - General Family Medicine 10/21/17 Martine Broussard, GarrettD 230 [place] [address] Pharmacist Internal Medicine 04/20/23 documented as of this encounter"
--- OUTSIDE RECORDS SUMMARY | 2024-06-12 15:30 | XMS_ITS | Encounter Summary ---
Author Organization [employer] Address [address] [place] [address] 7t [place] [address] Care Team Providers Care Cdl Company Flatbed Driver Name Role Phone Name, Rolf PARKS Primary Care Provider [phone] Martine Broussard PharmD Unavailable [phone] Reason for Visit * Reason Comments Med Refill Encounter Details Date Type Department Care Team (Late st Contact Info) Description 04/03/2024 Refill [facility] MEDICINE 230 [place], [place] [phone] Name, MD Rolf 230 [place] [address] Abnormal chest x-ray; Tobacco use; Type 2 diabetes mellitus with hyperglycemia, without long-term current use of insulin ([facility]); Osteoarthritis of knee, unspecified laterality, unspecified osteoarthritis type; Iron deficiency anemia, unspecified iron deficiency anemia type Social History Tobacco Use Types Packs/Day [...] Info) Description 08/18/2024 10:00 AM EDT Telemedicine [facility] MEDICINE [address] [place] [address] Karla Lewis RN 08/18/2024 11:15 AM EDT Office Visit [facility] MEDICINE [address] [place] [address] Name, MD Rolf [address] [place] [address] documented as of this encounter Goals Goal Patient Goal Type Associated Problems Recent Progress Patient-Stated? Author Hemoglobin A1c < 7 Result Component 6.6( 11:14 AM EST) No Martine Broussard, PharmD Record your blood sugar as directed Result Component No Puia, Martine, PharmD documented as of this encounter Visit Diagnoses Diagnosis Abnormal chest x-ray Nonspecific (abnormal) findings on radiological and other examination of lung field Tobacco use Type 2 diabetes mellitus with hyperglycemia, without long-term current use of insulin ([facility]) Osteoarthritis of knee, unspecified laterality, unspecified osteoarthritis type Iron deficiency anemia, unspecified iron deficiency anemia type documented in this encounter Additional Health Concerns Assessment Noted Time PHQ-9 Depression Total Score: 0 12/06/19 24 10:09 AM EDT documented as of this encounter Care Teams Cdl Company Flatbed Driver Relationship Specialty Start Date End Date Name, MD Rolf 230 [place] [address] PCP - General Family Medicine 10/21/17 Martine Broussard PharmD 230 [place] [address] Pharmacist Internal Medicine 04/20/23 documented as of this encounter
--- OUTSIDE RECORDS SUMMARY | 2024-06-12 15:30 | XMS_ITS | Encounter Summary ---
Author Organization [employer] Address [address] [facility] 7 [place] [address] Care Team Providers Care Architecture Drafter Name Role Phone Name, Rolf PARKS Primary Care Provider [phone] Martine Broussard PharmD Unavailable [phone] Reason for Visit * Reason Comments Med Refill Encounter Details Date Type Department Care Team (Late st Contact Info) Description 04/03/2024 Refill [facility] MEDICINE 230 [place], [place] [phone] Vivian Barajas, ANP 230 [place] [address] Diabetes mellitus type 2 with neurological manifestations [...] Info) Description 08/18/2024 10:00 AM EDT Telemedicine [facility] MEDICINE [address] [place] [address] Karla Lewis RN 08/18/2024 11:15 AM EDT Office Visit [facility] MEDICINE [address] [place] [address] Name, MD Rolf [address] [place] [address] documented as of this encounter Goals Goal [...] documented as of this encounter Care Teams Architecture Drafter Relationship Specialty Start Date End Date Name, MD Rolf 230 [place] [address] PCP - General Family Medicine 10/21/17 Martine Broussard PharmD 230 [place] [address] Pharmacist Internal Medicine 04/20/23 documented as of this encounter
--- OUTSIDE RECORDS SUMMARY | 2024-06-12 15:30 | XMS_ITS | Encounter Summary ---
Author Organization [employer] Address [address] [facility] 7 [place] [address] Care Team Providers Care Assembly Line Brazer Name Role Phone Name, Rolf PARKS Primary Care Provider [phone] Martine Broussard PharmD Unavailable [phone] Reason for Visit * Reason Comments Med Refill Encounter Details Date Type Department Care Team ([facility] st Contact Info) Description 04/24/2024 Refill [facility] MEDICINE 230 [place], [place] [phone] Vivian Barajas, ANP 230 [place] [address] Diabetes mellitus type 2 with neurological manifestations [...] Info) Description 08/18/2024 10:00 AM EDT Telemedicine [facility] MEDICINE [address] [place] [address] Karla Lewis RN 08/18/2024 11:15 AM EDT Office Visit [facility] MEDICINE [address] [place] [address] Name, MD Rolf [address] [place] [address] documented as of this encounter Goals Goal [...] documented as of this encounter Care Teams Assembly Line Brazer Relationship Specialty Start Date End Date Name, MD Rolf 230 [place] [address] PCP - General Family Medicine 10/21/17 Martine Broussard PharmD 230 [place] [address] Pharmacist Internal Medicine 04/20/23 documented as of this encounter
--- OUTSIDE RECORDS SUMMARY | 2024-06-12 15:30 | XMS_ITS | Encounter Summary ---
Author Organization [employer] Address [address] [facility] 7 [place] [address] Care Team Providers Care Shoe Cementer Name Role Phone Name, Rolf PARKS Primary Care Provider [phone] Martine Broussard PharmD Unavailable Reason for Visit * Reason Comments Med Refill Encounter Details Date Type Department Care Team ([facility] st Contact Info) Description 03/29/2024 Refill [facility] MEDICINE 230 [place], [place] [phone] Vivian Barajas, ANP 230 [place] [address] Diabetes mellitus type 2 with neurological manifestations [...] Info) Description 08/18/2024 10:00 AM EDT Telemedicine [facility] MEDICINE [address] [place] [address] Karla Lewis RN 08/18/2024 11:15 AM EDT Office Visit [facility] MEDICINE [address] [place] [address] Name, MD Rolf [address] [place] [address] documented as of this encounter Goals Goal [...] documented as of this encounter Care Teams Shoe Cementer Relationship Specialty Start Date End Date Name, MD Rolf 230 [place] [address] PCP - General Family Medicine 10/21/17 Martine Broussard PharmD 230 [place] [address] Pharmacist Internal Medicine 04/20/23 documented as of this encounter
--- OUTSIDE RECORDS SUMMARY | 2024-06-12 15:30 | XMS_ITS | Encounter Summary ---
Author Organization [employer] Address [address] [facility] 7 [place] [address] Care Team Providers Care Aircraft Maintenance Technician Name Role Phone Name, Rolf PARKS Primary Care Provider [phone] Martine Broussard PharmD Unavailable [phone] Reason for Visit * Reason Comments Med Refill Encounter Details Date Type Department Care Team (Late st Contact Info) Description 03/08/2024 Refill [facility] MEDICINE 230 [place], [place] [phone] Vivian Barajas, ANP 230 [place] [address] Diabetes mellitus type 2 with neurological manifestations [...] EDT Telemedicine [facility] MEDICINE [address] [place] [address] Karla Lewis RN 08/18/2024 11:15 AM EDT Office Visit [facility] MEDICINE [address] [place] [address] Name, MD Rolf [address] [place] [address] documented as of this encounter Goals Goal [...] documented as of this encounter Care Teams Aircraft Maintenance Technician Relationship Specialty Start Date End Date Name, MD Rolf 230 [place] [address] PCP - General Family Medicine 10/21/17 Martine Broussard PharmD [address] [place] [address] Pharmacist Internal Medicine 04/20/23 documented as of this encounter
--- OUTSIDE RECORDS SUMMARY | 2024-06-12 15:30 | XMS_ITS | Encounter Summary ---
Author Organization [employer] Address [address] [place] [address] 7 [place] [address] Care Team Providers Care Rn Community Health Name Role Phone Name, Rolf PARKS Primary Care Provider [phone] Martine Broussard PharmD Unavailable Reason for Visit * Reason Comments Med Refill Encounter Details Date Type Department Care Team ([facility] st Contact Info) Description 05/02/2024 Refill [facility] MEDICINE 230 [place], [place] [phone] Name, MD Rolf 230 [place] [address] Osteoarthritis of knee, unspecified laterality, unspecified osteoarthritis type; Anxiety Social History Tobacco Use Types Packs/Day [...] Info) Description 08/18/2024 10:00 AM EDT Telemedicine [facility] MEDICINE [address] [place] [address] Karla Lewis RN 08/18/2024 11:15 AM EDT Office Visit [facility] MEDICINE [address] [place] [address] Name, MD Rolf [address] [place] [address] documented as of this encounter Goals Goal Patient Goal Type Associated Problems Recent Progress Patient-Stated? Author Hemoglobin A1c < 7 Result Component 6.6( 11:14 AM EST) No Puia, Martine, PharmD Record your blood sugar as directed Result Component No Puia, Martine, PharmD documented as of this encounter Visit Diagnoses Diagnosis Osteoarthritis of knee, unspecified laterality, unspecified osteoarthritis type Anxiety Anxiety state, unspecified documented in this encounter Additional Health Concerns Assessment Noted Time PHQ-9 Depression Total Score: 0 12/06/19 24 10:09 AM EDT documented as of this encounter Care Teams Rn Community Health Relationship Specialty Start Date End Date Name, MD Rolf 230 [place] [address] PCP - General Family Medicine 10/21/17 Martine Broussard PharmD 230 [place] [address] Pharmacist Internal Medicine 04/20/23 documented as of this encounter
--- OUTSIDE RECORDS SUMMARY | 2024-06-12 15:30 | XMS_ITS | Encounter Summary ---
Author Organization [employer] Address [address] [facility] 7t [place] [address] Care Team Providers Care Associate Dentist Name Role Phone Name, Rolf PARKS Primary Care Provider [phone] Puia, Martine PharmD Unavailable Puia, Martine PharmD Unavailable [phone] Reason for Visit * Reason Comments Med Refill Encounter Details Date Type Department Care Team (Late st Contact Info) Description 07/16/2023 Refill [facility] MEDICINE 230 [place], [place] [phone] Name, MD Rolf 230 [place], [place] [phone] Osteoarthritis of knee, unspecified laterality, unspecified osteoarthritis [...] Description 08/18/2024 10:00 AM EDT Telemedicine [facility] MEDICINE [address] [place] [address] Karla Lewis RN 08/18/2024 11:15 AM EDT Office Visit [facility] MEDICINE [address] [place] [address] Name, MD Rolf [address] [place] [address] documented as of this encounter Goals Goal [...] documented as of this encounter Care Teams Associate Dentist Relationship Specialty Start Date End Date NameRolf MD [address] [place] [address] PCP - General Family Medicine 10/21/17 Puia, Martine, PharmD 230 [place] [address] Pharmacist Internal Medicine 04/20/23 Martine Broussard, GarrettD 230 [place] [address] Pharmacist Internal Medicine 04/20/23 08/11/23 documented as of this encounter
--- OUTSIDE RECORDS SUMMARY | 2024-06-12 15:30 | XMS_ITS | Encounter Summary ---
Author Organization [employer] Address [address] [facility] 7t [place] [address] Care Team Providers Care Packer Denture Name Role Phone Name, Rolf PARKS Primary Care Provider [phone] Puia, Martine PharmD Unavailable [phone] Puia, Martine PharmD Unavailable [phone] Reason for Visit * Reason Comments Med Refill Encounter Details Date Type Department Care Team (Late st Contact Info) Description 06/28/2023 Refill [facility] MEDICINE 230 [place], [place] [phone] Name, MD Rolf 230 [place], [place] [phone] Osteoarthritis of knee, unspecified laterality, unspecified osteoarthritis [...] Info) Description 08/18/2024 10:00 AM EDT Telemedicine [facility] MEDICINE [address] [place] [address] Karla Lewis RN 08/18/2024 11:15 AM EDT Office Visit [facility] MEDICINE [address] [place] [address] Name, MD Rolf [address] [place] [address] documented as of this encounter Goals Goal [...] documented as of this encounter Care Teams Packer Denture Relationship Specialty Start Date End Date NameRolf MD [address] [place] [address] PCP - General Family Medicine 10/21/17 Puia, Martine, PharmD 230 [place] [address] Pharmacist Internal Medicine 04/20/23 Martine Broussard, GarrettD 230 [place] [address] Pharmacist Internal Medicine 04/20/23 08/11/23 documented as of this encounter
--- OUTSIDE RECORDS SUMMARY | 2024-06-12 15:30 | XMS_ITS | Encounter Summary ---
Author Organization [employer] Address 75 [facility] 7 [place] [address] Care Team Providers Care Monument Setter Name Role Phone Name, Rolf PARKS Primary Care Provider [phone] Martine Broussard PharmD Unavailable Reason for Visit * Reason Onset Date Comments Medication Question 05/17/2024 Encounter Details Date Type Department Care Team ([facility] st Contact Info) Description 05/17/2024 Telephone [facility] [address] [place], [place] [phone] Name, MD Rolf [address] [place], [place] [phone] Medication Question Social History Tobacco Use Types Packs/Day Years [...] the past 12 months, has t he [employer], gas, oil or water company threatened to [...] Telephone Encounter - Karla Lewis RN - 05/19/2024 12:37 PM EST TC vis BLS#[id number], daughter updated on covering PCP/Dr Hilliard's temporary increase of Percocet 5mg Q6-8hrs PRN until appt with Dr Gamble 05/31/24. Daughter to start using Percocet prescription picked up05/05/24 - today. Will forward this message to PCP as well. * Telephone Encounter - Karla Lewis RN - 05/19/2024 12:08 PM EST Pt had L TKA done 04/28/24. 05/10/24 Pt had received RX for Oxycodone 5mg #42 tablets X 7 days from [facility], [address] [place] [address]. Pt had also received RX on 05/05/[address] Gamble for his chronic pain medications Percocet 5mg #56 tablets. On 05/17/24 Spoke with Daughter, who is patients DRESS SHOE INSPECTOR as well, and advised she was not to use his Percocet RX from Dr Gamble, only use the pain medication from surgeons office. Advised daughter to call surgeons office for further postop pain medication orders if needed. Return TC via BLS#[id number], daughter states that surgeons office is no longer prescribing patients pain medication. Daughter confirms that oxycodone RX is now complete and that she will be starting use of his Percocet RX. Daughter asking if he can have a frequency increase as pt was taking his oxycodone Q4 hours PRN and his percocet is only ordered Q12hr PRN. She states her dad is still laving a lotof knee pain. Explained to dtr that PCP is away currently and I would review this with another provider and call her back. * Telephone Encounter - Bhupendra London - 05/19/2024 11:08 AM EST TC from daughter states contacted surgeons office regarding oxyCODONE- acetaminophen (Percocet) 5-325 MG tablet . They suggested they will no longer be prescribing medication and that pcp office should prescribe Daughter would like a call back to further discuss * Telephone Encounter - Karla Lewis RN - 05/17/2024 12:45 PM EST Return TC via BLS#[id number], spoke with daughter Annetta, corinne advised Percocet RX sent by PCP 05/05/24 should NOT be used at this time. Patient had L TKR done 04/28/24. Daughter advised to call surgeons office for all his pain medication needs postoperatively. Daughter said she would not use Percocetfrom Dr Gamble and will call the surgeons office regarding her dads post op pain. * Telephone Encounter - Familia Doyle - 05/17/2024 9:36 AM EST Tc from Daughter requesting call back regarding oxyCODONE-acetaminophen (Percocet) 5-325 MG tablet.She states due to pt's recent operation he is in pain and might be short of medication before he isdue. Daughter is requesting call back to discuss increasing dosage of medication. Please contact Daughter at [phone]. (Frisian Speaker) documented in this encounter Plan of Treatment Upcoming Encounters Date Type Department Care Team (Late st Contact Info) Description 08/18/2024 10:00 AM EDT Telemedicine [facility] [address] [place] [phone] Karla Lewis RN 08/18/2024 11:15 AM EDT Office Visit [facility] [address] [place] [address] NameRolf MD [address] [place] [address] documented as of this encounter Goals Goal Patient Goal Type Associated Problems Recent Progress Patient-Stated? Author Hemoglobin A1c < 7 Result Component 6.6( 11:14 AM EST) No PuiaMartine, PharmD Record your blood sugar as directed Result Component No PuiaLanceMartine, PharmD documented as of this encounter Visit Diagnoses Not on filedocumented in this encounter Additional Health Concerns Assessment Noted Time PHQ-9 Depression Total Score: 0 12/06/19 24 10:09 AM EDT documented as of this encounter Care Teams Monument Setter Relationship Specialty Start Date End Date Rolf Gamble MD [address] [place] [address] PCP - General Family Medicine 10/21/17 PuMartine camarillo, PharmD [address] [place] [address] Pharmacist Internal Medicine 04/20/23 documented as of this encounter
--- OUTSIDE RECORDS SUMMARY | 2024-06-12 15:30 | XMS_ITS | Encounter Summary ---
Author Organization [employer] Address [address] [place] [address] 7 [place] [address] Care Team Providers Care Hairpiece Stylist Name Role Phone Name, Rolf PARKS Primary Care Provider [phone] Martine Broussard PharmD Unavailable [phone] Reason for Visit * Reason Comments Med Refill Encounter Details Date Type Department Care Team ([facility] st Contact Info) Description 05/24/2024 Refill [facility] [address] [place], [place] [phone] Name, MD Rolf [address] [place] [address] Osteoarthritis of both knees, unspecified osteoarthritis type [...] Info) Description 08/18/2024 10:00 AM EDT Telemedicine [facility] [address] [place] [address] 16671 Karla Lewis RN 08/18/2024 11:15 AM EDT Office Visit [facility] [address] [place] [address] Name, MD Rolf [address] [place] [address] documented as of this encounter Goals Goal [...] documented as of this encounter Care Teams Hairpiece Stylist Relationship Specialty Start Date End Date Name, MD Rolf [address] [place] [address] PCP - General Family Medicine 10/21/17 Martine Broussard PharmD [address] [place] [address] Pharmacist Internal Medicine 04/20/23 documented as of this encounter
--- OUTSIDE RECORDS SUMMARY | 2024-06-12 15:30 | XMS_ITS | Encounter Summary ---
Author Organization [employer] Address 75 [facility] 7t [place] [address] Care Team Providers Care Tubing Supervisor Name Role Phone Name, Rolf PARKS Primary Care Provider Martine Broussard PharmD Unavailable [phone] Reason for Visit * Reason Comments Med Refill Encounter Details Date Type Department Care Team ([facility] st Contact Info) Description 10/06/2023 Refill [facility] 230 [place], [place] [phone] Name, MD Rolf 230 [place] [address] Osteoarthritis of knee, unspecified laterality, unspecified osteoarthritis [...] Info) Description 08/18/2024 10:00 AM EDT Telemedicine [facility] [address] [place] [address] Karla Lewis RN 08/18/2024 11:15 AM EDT Office Visit [facility] [address] [place] [address] Name, MD Rolf [address] [place] [address] documented as of this encounter Goals Goal [...] documented as of this encounter Care Teams Tubing Supervisor Relationship Specialty Start Date End Date Rolf Gamble MD [address] [place] [address] PCP - General Family Medicine 10/21/17 PuiaLanceMartine, PharmD [address] [place] [address] Pharmacist Internal Medicine 04/20/23 documented as of this encounter
--- OUTSIDE RECORDS SUMMARY | 2024-06-12 15:30 | XMS_ITS | Encounter Summary ---
Author Organization [employer] Address [address] [place] [address] 7t [place] [address] Care Team Providers Care Puncher And Fastener Name Role Phone Name, Rolf PARKS Primary Care Provider [phone] Martine Broussard PharmD Unavailable [phone] Reason for Visit * Reason Comments Med Refill Encounter Details Date Type Department Care Team ([facility] st Contact Info) Description 03/21/2024 Refill [facility] [address] [place], [place] [phone] Name, MD Rolf [address] [place] [address] Osteoarthritis of knee, unspecified laterality, unspecified osteoarthritis [...] Info) Description 08/18/2024 10:00 AM EDT Telemedicine [facility] [address] [place] [address] Karla Lewis RN 08/18/2024 11:15 AM EDT Office Visit [facility] [address] [place] [address] Name, MD Rolf [address] [place] [address] documented as of this encounter Goals Goal Patient Goal Type Associated Problems Recent Progress Patient-Stated? Author Hemoglobin A1c < 7 Result Component 6.6( 11:14 AM EST) No PuiaLanceMartine, PharmD Record your blood sugar as directed Result Component No Puia, Martine, PharmD documented as of this encounter Visit Diagnoses Diagnosis Osteoarthritis of knee, unspecified laterality, unspecified osteoarthritis type Chronic pain of left knee documented in this encounter Additional Health Concerns Assessment Noted Time PHQ-9 Depression Total Score: 0 12/06/19 24 10:09 AM EDT documented as of this encounter Care Teams Puncher And Fastener Relationship Specialty Start Date End Date Name, MD Rolf [address] [place] [address] PCP - General Family Medicine 10/21/17 Martine Broussard, Paulo [address] [place] [address] Pharmacist Internal Medicine 04/20/23 documented as of this encounter
--- OUTSIDE RECORDS SUMMARY | 2024-06-12 15:30 | XMS_ITS | Encounter Summary ---
Author Organization [employer] Address 75 [facility] 7 [place] [address] Care Team Providers Care Pulley Worker Name Role Phone Name, Rolf PARKS Primary Care Provider [phone] Martine Broussard PharmD Unavailable [phone] Reason for Visit * Reason Comments Med Refill Encounter Details Date Type Department Care Team ([facility] st Contact Info) Description 03/13/2024 Refill [facility] 230 [place], [place] [phone] Vivian Barajas, ANP [address] [place] [address] Diabetes mellitus type 2 with neurological manifestations [...] Description 08/18/2024 10:00 AM EDT Telemedicine [facility] [address] [place] [phone] Karla Lewis RN 08/18/2024 11:15 AM EDT Office Visit [facility] [address] [place] [address] Name, MD Rolf [address] [place] [address] documented as of this encounter Goals Goal [...] documented as of this encounter Care Teams Pulley Worker Relationship Specialty Start Date End Date Name, MD Rolf [address] [place] [address] PCP - General Family Medicine 10/21/17 Martine Broussard PharmD [address] [place] [address] Pharmacist Internal Medicine 04/20/23 documented as of this encounter
--- OUTSIDE RECORDS SUMMARY | 2024-06-12 15:30 | XMS_ITS | Clinical Summary ---
Author Organization [employer] Address [address] [place] [address] Care Team Providers Care Paymaster Of Purses Name Role Phone Poppy Hernandez MD Primary Care Provider Social History Tobacco Use Types Packs/Day Years Used Date Smoking Tobacco: Never Assessed Sex and Gender Information Value Date Recorded Sex Assigned at Not on file Legal Sex Male 4:32 AM EST Gender Identity Not on file Sexual Orientation Not on file Plan of Treatment Health Maintenance Due Date Last Done Comments Diabetes: Annual GFR (Glomer ular Filtration Rate) 1956 Diabetes: Annual Foot Exam 1966 Diabetes: Annual Retina Eye Exam 1966 Zoster Vaccines (1 of 2) 2006 Pneumococcal Vaccine: 50+ Ye ars (2 of 2 - PCV) 10/03/2011 10/02/2010 DTaP,Tdap,and Td Vaccines (2 - Td or Tdap) 10/23/2011 09/25/2011 Abdominal Aortic Aneurysm (A AA) Screen 04/05/2022 Cholesterol Screening (Lipid Panel) 04/05/2022 Colorectal Cancer Screening: Colonoscopy 04/05/2022 Depression Screening 04/05/2022 Falls Risk Assessment 04/05/2022 Hepatitis C Screening 04/05/2022 Social Influencers of Health Screening 04/05/2022 Diabetes: Annual Urine Albumin-Creatinine Ratio (uACR) 04/16/2022 Diabetes: Blood Sugar Contro l Test (HGBA1C) 04/16/2022 Hypertension/CHF/CAD Annual BMP Blood Test 04/16/2022 COVID-19 Vaccine ( - 2023-2 5 season) 2024 Influenza Vaccine (#1) 2024 03/22/2012 RSV Immunization Patients 60 + Years Old (1 - 1-dose 75+ series) 12/29/2031 HIB Vaccines Aged Out No longer eligi ble based on patient's age to complete this topic HPV Vaccines Aged Out No longer eligi ble based on patient's age to complete this topic Hepatitis A Vaccines Aged Out No long er eligible based on patient's age to complete this topic Hepatitis B Vaccines Aged Out No long er eligible based on patient's age to complete this topic IPV Vaccines Aged Out No longer eligi ble based on patient's age to complete this topic MMR Vaccines Aged Out No longer eligi ble based on patient's age to complete this topic Meningococcal ACWY Vaccine Aged Out N o longer eligible based on patient's age to complete this topic Meningococcal B Vacine Aged Out No lo nger eligible based on patient's age to complete this topic RSV Immunization Patients Un josé antonio 20 months Aged Out No longer eligible b ased on patient's age to complete this topic Varicella Vaccines Aged Out No longer eligible based on patient's age to complete this topic Care Teams Paymaster Of Purses Relationship Specialty Start Date End Date Poppy Hernandez MD [address] [place] [address] PCP - General Internal Medicine 06/03/17
--- OUTSIDE RECORDS SUMMARY | 2024-06-12 15:30 | XMS_ITS | Encounter Summary ---
Author Organization [employer] Address 75 [facility] 7t [place] [address] Care Team Providers Care Rehab Aide Name Role Phone Name, Rolf PARKS Primary Care Provider [phone] Martine Broussard PharmD Unavailable [phone] Reason for Visit * Reason Comments Med Refill Encounter Details Date Type Department Care Team (Late st Contact Info) Description 04/03/2024 Refill [facility] [address] [place] [address] Marcela Ruiz NP [address] [place] [address] Osteoarthritis of knee, unspecified laterality, unspecified osteoarthritis [...] Info) Description 08/18/2024 10:00 AM EDT Telemedicine [facility] [address] [place] [address] Karla Lewis RN 08/18/2024 11:15 AM EDT Office Visit [facility] [address] [place] [address] Name, MD Rolf [address] [place] [address] documented as of this encounter Goals Goal [...] documented as of this encounter Care Teams Rehab Aide Relationship Specialty Start Date End Date Name, MD Rolf [address] [place] [address] PCP - General Family Medicine 10/21/17 Martine Broussard PharmD [address] [place] [address] Pharmacist Internal Medicine 04/20/23 documented as of this encounter
--- OUTSIDE RECORDS SUMMARY | 2024-06-12 15:30 | XMS_ITS | Encounter Summary ---
Author Organization [employer] Address [address] [place] [address] 7t [place] [address] Care Team Providers Care Chemical Plant Manager Name Role Phone Name, Rolf PARKS Primary Care Provider [phone] Martine Broussard PharmD Unavailable [phone] Reason for Visit * Reason Comments Med Refill Encounter Details Date Type Department Care Team ([facility] st Contact Info) Description 03/01/2024 Refill [facility] 230 [place], [place] [phone] Name, MD Rolf [address] [place] [address] Anxiety; COPD exacerbation (CMS/HCC); Osteoarthritis of knee, unspecified [...] Info) Description 08/18/2024 10:00 AM EDT Telemedicine [facility] [address] [place] [address] Karla Lewis RN 08/18/2024 11:15 AM EDT Office Visit [facility] [address] [place] [address] Name, MD Rolf [address] [place] [address] documented as of this encounter Goals Goal Patient Goal Type Associated Problems Recent Progress Patient-Stated? Author Hemoglobin A1c < 7 Result Component 6.6( 11:14 AM EST) No Martine Broussard, PharmD Record your blood sugar as directed Result Component No Martine Broussard, PharmD documented as of this encounter Visit Diagnoses Diagnosis Anxiety Anxiety state, unspecified COPD exacerbation ([facility]/HCC) Obstructive chronic bronchitis with exacerbation Osteoarthritis of knee, unspecified laterality, unspecified osteoarthritis type Chronic pain of left knee documented in this encounter Additional Health Concerns Assessment Noted Time PHQ-9 Depression Total Score: 0 12/06/19 24 10:09 AM EDT documented as of this encounter Care Teams Chemical Plant Manager Relationship Specialty Start Date End Date Name, MD Rolf [address] [place] [address] PCP - General Family Medicine 10/21/17 Martine Broussard PharmD [address] [place] [address] Pharmacist Internal Medicine 04/20/23 documented as of this encounter
--- OUTSIDE RECORDS SUMMARY | 2024-06-12 15:30 | XMS_ITS | Encounter Summary ---
Author Organization [employer] Address 75 [facility] 7 [place] [address] Care Team Providers Care Infection Control Manager Name Role Phone Name, Rolf PARKS Primary Care Provider [phone] Martine Broussard PharmD Unavailable [phone] Reason for Visit * Reason Comments Med Refill Encounter Details Date Type Department Care Team ([facility] st Contact Info) Description 03/02/2024 Refill [facility] [address] [place], [place] [phone] Vivian Barajas, ANP [address] [place] [address] Diabetes mellitus type 2 with neurological manifestations [...] Description 08/18/2024 10:00 AM EDT Telemedicine [facility] [address] [place] [address] Karla Lewis RN 08/18/2024 11:15 AM EDT Office Visit [facility] [address] [place] [address] 24866 Name, MD Rolf [address] [place] [address] documented as of this encounter Goals Goal [...] documented as of this encounter Care Teams Infection Control Manager Relationship Specialty Start Date End Date Name, MD Rolf [address] [place] [address] PCP - General Family Medicine 10/21/17 Martine Broussard PharmD [address] [place] [address] Pharmacist Internal Medicine 04/20/23 documented as of this encounter
--- OUTSIDE RECORDS SUMMARY | 2024-06-12 15:30 | XMS_ITS | Encounter Summary ---
Author Organization [employer] Address 75 [facility] 7t [place] [address] Care Team Providers Care Missile Control Pilot Name Role Phone Name, Rolf PARKS Primary Care Provider [phone] Puia, Martine PharmD Unavailable Puia, Martine PharmD Unavailable [phone] Reason for Visit * Reason Comments Med Refill Encounter Details Date Type Department Care Team ([facility] st Contact Info) Description 07/21/2023 Refill [facility] 230 [place] [address] Name, MD Rolf [address] [place], [place] [phone] Type 2 diabetes mellitus with hyperglycemia, without long-term current use of insulin ([facility]); Iron deficiency anemia, unspecified iron deficiency anemia [...] Description 08/18/2024 10:00 AM EDT Telemedicine [facility] [address] [place] [address] Karla Lewis RN 08/18/2024 11:15 AM EDT Office Visit [facility] [address] [place] [address] Name, MD Rolf [address] [place] [address] documented as of this encounter Goals Goal Patient Goal Type Associated Problems Recent Progress Patient-Stated? Author Hemoglobin A1c < 7 Result Component 6.6( 11:14 AM EST) No Puia, Martine, PharmD Record your blood sugar as directed Result Component No Puia, Martine, PharmD documented as of this encounter Visit Diagnoses Diagnosis Type 2 diabetes mellitus with hyperglycemia, without long-term current use of insulin ([facility]) Iron deficiency anemia, unspecified iron deficiency anemia type documented in this encounter Additional Health Concerns Assessment Noted Time PHQ-9 Depression Total Score: 14 023 1:07 PM EDT documented as of this encounter Care Teams Missile Control Pilot Relationship Specialty Start Date End Date Name, MD Rolf [address] [place] [address] PCP - General Family Medicine 10/21/17 Martine Broussard, Paulo [address] [place] [address] Pharmacist Internal Medicine 04/20/23 Martine Broussard, Paulo [address] [place] [address] Pharmacist Internal Medicine 04/20/23 08/11/23 documented as of this encounter
--- OUTSIDE RECORDS SUMMARY | 2024-06-12 15:30 | XMS_ITS | Encounter Summary ---
Author Organization [employer] Address 75 [facility] 7 [place] [address] Care Team Providers Care Compliance Specialist Name Role Phone Name, Rolf PARKS Primary Care Provider [phone] Martine Broussard PharmD Unavailable [phone] Reason for Visit * Reason Onset Date Comments Med Refill 05/01/2024 Encounter Details Date Type Department Care Team (Late st Contact Info) Description 05/01/2024 Telephone [facility] 230 [place], [place] [phone] Name, MD Rolf [address] [place], [place] [phone] Med Refill Social History Tobacco Use Types [...] Telephone Encounter - Mary Peres LPN - 05/01/2024 2:20 PM EST Medication was sent to [facility] #[id number] on 03/06/24 #30 with 3 refills. * Telephone Encounter - Osmar Gonsalez - 05/01/2024 2:15 PM EST TC from pt requesting medication refill. Medications needing refill : traZODone (Desyrel) 50 MG tablet To be sent to: [facility] #[id number] - [place] [address] [address] documented in this encounter Plan of Treatment Upcoming Encounters Date Type Department Care Team (Late st Contact Info) Description 08/18/2024 10:00 AM EDT Telemedicine [facility] [address] [place] [phone] Karla Lewis RN 08/18/2024 11:15 AM EDT Office Visit [facility] [address] [place] [address] NameRolf MD [address] [place] [address] documented as of this encounter Goals Goal [...] documented as of this encounter Care Teams Compliance Specialist Relationship Specialty Start Date End Date NameRolf MD [address] [place] [address] PCP - General Family Medicine 10/21/17 Martine Broussard, PharmD [address] [place] [address] Pharmacist Internal Medicine 04/20/23 documented as of this encounter
--- OUTSIDE RECORDS SUMMARY | 2024-06-12 15:30 | XMS_ITS | Encounter Summary ---
Author Organization [employer] Address [address] [place] [address] 7 [place] [address] Care Team Providers Care Biostatistics Professor Name Role Phone Name, Rolf PARKS Primary Care Provider [phone] Martine Broussard PharmD Unavailable [phone] Reason for Visit * Reason Onset Date Comments FYI 05/04/2024 Encounter Details Date Type Department Care Team ([facility] st Contact Info) Description 05/04/2024 Telephone [facility] [address] [place], [place] [phone] Name, MD Rolf [address] [place], [place] [phone] FYI Social History Tobacco Use Types Packs/Day Years [...] Telephone Encounter - Jil Hansen RN - 05/05/2024 10:06 AM EST Pt is already scheduled for follow up on 05/31/24. [facility] notes sent to medical records. * Telephone Encounter - Funmi Benjamin - 05/04/2024 4:01 PM EST Tc from pt daughter to report pt went to [facility] on 05/03. A knee replacement was performed, laboratories indicated low hemoglobin, low oxygen. A CT scan was also performed and he had an abnormality in the lung. The recommended him to do ctscan in 4 to 5 months. documented in this encounter Plan of Treatment Upcoming Encounters Date Type Department Care Team (Late st Contact Info) Description 08/18/2024 10:00 AM EDT Telemedicine [facility] [address] [place] [id number] Karla Lewis, DARYN 08/18/2024 11:15 AM EDT Office Visit [facility] [address] [place] [phone] Rolf Gamble MD [address] [place] [phone] documented as of this encounter Goals Goal [...] documented as of this encounter Care Teams Biostatistics Professor Relationship Specialty Start Date End Date NameRolf MD [address] [place] [id number] PCP - General Family Medicine 10/21/17 Martine Broussard, PharmD [address] [place] [phone] Pharmacist Internal Medicine 04/20/23 documented as of this encounter
--- OUTSIDE RECORDS SUMMARY | 2024-06-12 15:30 | XMS_ITS | Encounter Summary ---
Author Organization [email or web address] Address [address] [facility] [address] [place] [address] Care Team Providers Care Historic Interpreter Name Role Phone Name, Rolf PARKS Primary Care Provider [phone] Martine Broussard PharmD Unavailable [phone] Reason for Visit * Reason Onset Date Comments Durable Medical Equipment 05/23/2024 L&C Fo rm Encounter Details Date Type Department Care Team (Late st Contact Info) Description 05/23/2024 Telephone [facility] [address] [place] [address] Stefanie Mcneal MD [address] [place] [address] Durable Medical Equipment (L&C Form) Social History Tobacco Use Types Packs/Day Years [...] encounter Miscellaneous Notes * Telephone Encounter - Marilou Doyle - 05/23/2024 11:17 AM EST Confirmation of order for ANALYTIX ONLY from Donna received and is being processed. documented in this encounter Plan of Treatment Upcoming Encounters Date Type Department Care Team (Late st Contact Info) Description 08/18/2024 10:00 AM EDT Telemedicine [facility] [address] [place] [id number] Karla Lewis, DARYN 08/18/2024 11:15 AM EDT Office Visit [facility] [address] [place] [phone] Name, MD Rolf [address] [place] [phone] documented as of this encounter Goals Goal [...] documented as of this encounter Care Teams Historic Interpreter Relationship Specialty Start Date End Date Name, MD Rolf [address] [place] [address] PCP - General Family Medicine 10/21/17 Martine Broussard PharmD [address] [place] [phone] Pharmacist Internal Medicine 04/20/23 documented as of this encounter
--- OUTSIDE RECORDS SUMMARY | 2024-06-12 15:30 | XMS_ITS | Clinical Summary ---
Author Organization [employer] Address [address] [place] [address] [address] [place] [address] Care Team Providers Care Director Hardware Name Role Phone Name, Rolf PARKS Primary Care Provider [phone] Martine Broussard PharmD Unavailable [phone] Allergies No known active allergies Medications escitalopram (Lexapro) 10 MG tabletIndications :Depression with anxiety TAKE 1 TABLET(10 MG) BY MOUTH IN THE MORNING 30 tablet 2 023 Active Blood Glucose Monitoring Suppl (ONE TOUCH ULTRA 2) w/Device kitIndications:Ty pe 2 diabetes mellitus with hyperglycemia, without long-term current use of insulin (CMS/HCC) Use once a day 1 kit 024 Active Spacer/Aero-Holdi ng Chambers device Use daily with MDI 1 each 024 Active albuterol (2.5 MG/3ML) 0.083% nebulizer solution Take 3 mL (2.5 mg) by nebulization every 6 (six) hours if needed for wheezing. 75 mL 11 024 2024 Active metFORMIN (Glucophage) 1000 MG tabletIndications :Type 2 diabetes mellitus with hyperglycemia, without long-term current use of insulin (CMS/HCC) take 1 tablet by oral route 2 times every day with morning and evening meals 60 tablet 024 Active OneTouch Delica Lancets 33G miscIndications:T ype 2 diabetes mellitus with hyperglycemia, without long-term current use of insulin (CMS/HCC) Use once a day 100 each 5 024 Active FeroSul 325 (65 Fe) MG tabletIndications :Iron deficiency anemia, unspecified iron deficiency anemia type TAKE ONE TABLET BY MOUTH EVERY OTHER DAY (VIAL) 15 tablet 5 Active glucose blood (OneTouch Ultra) test stripIndications: Type 2 diabetes mellitus with hyperglycemia, without long-term current use of insulin ([facility]) Use once a day 50 each 5 024 2024 Active Fluticasone-Salme terol 500-50 MCG/ACT aerosol powderIndications :COPD exacerbation ([facility]) INHALE ONE PUFF BY MOUTH TWICE A DAY (BULK) 60 each 5 Active traZODone (Desyrel) 50 MG tabletIndications :Osteoarthritis of both knees, unspecified osteoarthritis type TAKE 1 TABLET BY MOUTH AT BEDTIME 30 tablet 3 Active Diclofenac Sodium 1 % gelIndications:Os teoarthritis of knee, unspecified laterality, unspecified osteoarthritis type APPLY 4 GRAMS TO THE AFFECTED KNEE TWICE A DAY (BULK) 100 g 3 Active atorvastatin (Lipitor) 40 MG tabletIndications :Type 2 diabetes mellitus with hyperglycemia, without long-term current use of insulin ([facility]) Take 1 tablet (40 mg) by mouth Once per day. 30 tablet 024 2024 Active Umeclidinium Henderson (Incruse Ellipta) 62.5 MCG/ACT aerosol powder Inhale 1 Act (62.5 mcg) Once per day. Inhale 1 each in the morning. 30 each 024 2024 Active albuterol 108 (90 Base) MCG/ACT inhalerIndication s:Abnormal chest x-ray,Tobacco use inhale 2 puff by inhalation route every 4 - 6 hours as needed 18 g Active omeprazole (PriLOSEC) [address] capsuleIndication s:Iron deficiency anemia, unspecified iron deficiency anemia type take 1 capsule by oral route every day 30 minutes to 1 hour before a meal 30 capsule Active Acetaminophen Extra Strength 500 MG tabletIndications :Osteoarthritis of knee, unspecified laterality, unspecified osteoarthritis type TAKE ONE TABLET BY MOUTH EVERY 8 HOURS NEEDED FOR PAIN (VIAL) 90 tablet 3 Active Dulaglutide 4.5 MG/0.5ML solution auto-injector Inject 0.5 mL (4.5 mg) under the skin 1 (one) time per week. Inject 4.5 mg under the skin 1 (one) time per week. 2 mL 024 2024 Active clonazePAM (KlonoPIN) 2 MG tabletIndications :S/P TKR (total knee replacement), left TAKE ONE TABLET BY MOUTH EVERY EVENING AT BEDTIME NEEDED (VIAL) 28 tablet Active oxyCODONE-acetami nophen (Percocet) 5-325 MG tabletIndications :S/P TKR (total knee replacement), left Take 1 tablet by mouth 2 times daily for 28 days. 56 tablet 2024 Active gabapentin (Neurontin) 300 MG capsuleIndication s:S/P TKR (total knee replacement), left TAKE ONE CAPSULE BY MOUTH TWICE A DAY (VIAL) 60 capsule Active Eliquis 2.5 MG tablet Take 1 tablet by mouth 2 times daily. Active benzonatate (Tessalon Perles) 100 MG capsule Take 1 capsule (100 mg) by mouth if needed in the morning, at noon, and at bedtime for cough for up to 7 days. Do not crush or chew. 20 capsule 025 2024 Active losartan (Cozaar) 25 MG tabletIndications :Chronic HFrEF (heart failure with reduced ejection fraction) (CMS/HCC) Take 1 tablet (25 mg) by mouth Once per day. 30 tablet 025 2025 Active empagliflozin (Jardiance) 10 MGIndications:Chr onic HFrEF (heart failure with reduced ejection fraction) (CMS/HCC) Take 1 tablet (10 mg) by mouth Once per day. 30 tablet 025 2025 Active naloxone (Narcan) 4 mg/0.1 mL nasal sprayIndications: Anxiety Administer 1 spray (4 mg) into affected nostril(s) if needed for opioid reversal. May repeat every 2-3 minutes if needed, alternating nostrils, until medical assistance becomes available. 2 each 3 024 2024 clonazePAM (KlonoPIN) 2 MG tabletIndications :Anxiety TAKE 1 TABLET BY MOUTH AT BEDTIME NEEDED (VIAL) 28 tablet 024 2024 Discontinued gabapentin (Neurontin) 300 MG capsuleIndication s:Osteoarthritis of knee, unspecified laterality, unspecified osteoarthritis type TAKE ONE CAPSULE BY MOUTH TWICE A DAY (VIAL) 60 capsule 024 2024 Discontinued(R eorder (will not trigger notification to Pharmacy)) oxyCODONE-acetami nophen (Percocet) 5-325 MG tabletIndications :Osteoarthritis of both knees, unspecified osteoarthritis type Take 1 tablet by mouth 2 times daily for 28 days. 56 tablet 025 2024 Discontinued(R eorder (will not trigger notification to Pharmacy)) clonazePAM (KlonoPIN) 2 MG tabletIndications :Anxiety TAKE ONE TABLET BY MOUTH EVERY EVENING AT BEDTIME NEEDED (VIAL) Do not start before May 22, 2024. 28 tablet 025 2024 Discontinued(R eorder (will not trigger notification to Pharmacy)) Active Problems Problem Noted Date Diagnosed Date Chronic HFrEF (heart failure with reduced ejection fraction) 06/09/2024 Overview (06/09/2024): [place] [address] Cardiology Report Signed Patient: Hong Gutierrez MR#: [id number] : 1955 Acct:[id number] Age/Sex: 68 / M ADM Date: 06/07/24 Loc: [facility] Attending Dr: Rolf Gamble MD Ordering Physician: Rolf Gamble MD Date of Service: 06/07/24 Procedure(s): CA echo transthorac w con Accession Number(s): cc: Rolf Gamble MD Transthoracic Echocardiogram Patient (Last, First, Middle): Hong Gutierrez, Gender: Male Date of : 1955 Age: 68 Procedure Date: 06/07/2024 Procedure Type: Transthoracic Echocardiogram Location: OP Height: 180.34 cm Weight: 81.65 kg BSA: 2.02 m2 Heart Rate: bpm BP: 110 / 70 mmHg [employer]: MATTHIAS Referring MD: Rolf Gamble MD Geneticist: Beck Cruz MD Symptoms: CARDIOMEGALY I51.7 Study Quality: Adequate with contrast ECG Rhythm: Sinus Conclusions: - 1. [id number] LV systolic dysfunction with LVEF of 40-45% with grade 1 diastolic dysfunction 2. Cardiac valvular Dopplers within normal limits 3. Mildly dilated ascending aorta at 3.8 cm 4. No gross pericardial effusion Findings Procedure Information Contrast agent, definity, is being given per protocol without apparent complications. Left Ventricle Normal left ventricular cavity size. There is normal left ventricular wall thickness. The left ventricular systolic function is mild to moderately decreased. The visually estimated ejection fraction is between 40-45%. Spectral Doppler is indicative of an impaired relaxation filling pattern. E/E prime ratio is <8, consistent with normal filling pressures. Evidence suggests grade I (mild) diastolic dysfunction. Right Ventricle Normal right ventricular cavity size and systolic function. Atria The left atrium is normal in size. There is no evidence of interatrial shunt. The right atrium is normal in size. Aortic Valve There is mild calcification of the aortic valve. There is mild thickening of the aortic valve. There is no aortic valve stenosis. There is no aortic valve regurgitation. Mitral Valve There is mild anterior mitral leaflet thickening. There is mild mitral annular calcification. There is trace mitral valve regurgitation. There is no mitral valve stenosis. Pulmonic Valve The pulmonic valve was not well visualized. Tricuspid Valve Likely normal tricuspid valve structure and function. Tricuspid regurgitation envelope is inadequate for calculation of right ventricular systolic pressure. Normal right atrial pressure. Great Vessels The pulmonary artery was not well visualized. There is mild dilatation of the ascending aorta measuring 3.80 cm. Small plaque is seen in the sino tubular ridge. Venous The inferior vena cava is normal in size and collapses greater than 50% with inspiration. Pericardium/Pleural There is no evidence of pericardial effusion. Prior Study Comparison No prior study available for comparison. Measurements 2D Linear Measurements IVSd: 0.96 0.6-0.9/0.6-1.0 cm LVIDd: 4.51 3.9-5.3/4.2-5.9 cm LVIDd Index: 2.23 2.4-3.2/2.2-3.1 cm/m2 LVIDs: 3.27 2.0-3.6 cm LVPWd: 0.97 0.7-1.1 cm LA Diam: 3.10 2.7-3.8/3.0-4.0 cm LAIDs Index: 1.53 1.5-2.3 cm/m2 LV Mass: 181.72 67-162/88-224 g LV Mass Index: 89.96 43-95/49-115 g/m2 LVOT Diam: 2.20 3.0+(-)1.3 cm 2D Systolic Function EF 4C: 39.10 >55% EF 2C: 43.30 >55% EF BiP: 40.50 >55% Mitral Valve MV Pk E: 0.48 MV PK A: 0.75 MV Decel Time: 133.00 E/A: 0.60 E'Lateral: 8.16 E'Medial: 5.22 E/E' Med: 9.20 E/E' Lat: 5.90 PHT: 39.00 MVA PHT: 5.64 Decel [place]: 3.60 Aortic Valve AoV Pk Manish: 1.64 AoV Mn Manish: 1.09 AoV VTI: 0.29 AoV Pk Grad: 11.00 Aov Mn Grad: 6.00 JUDE Cont.VTI: 2.25 LVOT LVOT Pk Manish: 0.95 LVOT Mn Manish: 0.64 LVOT VTI: 0.17 LVOT Pk Grad: 4.00 LVOT Mn Grad: 2.00 LVOT Diam: 2.20 LVOT Area: 3.80 Diastolic Function MV Pk E: 0.48 MV Pk A: 0.75 E/A: 0.60 E'Medial: 5.22 E/E' Med: 9.20 E' Laterial: 8.16 E/E' Lat: 5.90 Right Ventricle TAPSE (mm): 24.40 TVS' Manish: 12.70 Tricuspid Valve TR Pk Manish: 2.23 TR Pk Grad: 20.00 Great Vessels Aorta Sinus of Valsalva: 3.52 2.0-3.[address] Ridge: 2.51 1.7-3.4 cm Ao Asc: 3.80 2.1-3.4 cm Updated in Other Vendor System with Status of Final Bekc Cruz MD electronically signed on 06/08/2024 10:36:57 AM with status of Final S/P TKR (total knee replacement), left Overview (05/31/2024): 04/28/25 at [facility] Tachycardia 07/20/2023 Assessment & Plan (07/20/2023 2:13 PM EDT): I noticed his HR is elevated, on review of chart I notice it is always elevated (similar numbers) I will go ahead and refer patient to cardiology for further evaluation Chronic pain of both knees 07/20/2023 Assessment & Plan (07/20/2023 2:16 PM EDT): Elevate knee apply ice and rest XRAY ordered C/w same pain meds Knee brace prescription will be generated Patient has an apointment with orthopedics on 07/26/23 I advise not to miss his appointment Chronic left-sided low back pain without sciatic a 07/20/2023 Left hip pain 07/20/2023 Assessment & Plan (07/20/2023 2:16 PM EDT): As above Other emphysema 04/08/2023 Tobacco dependence 04/08/2023 ILD (interstitial lung disease) 04/08/2023 Chronically on benzodiazepine therapy 12/31/2022 Chronic low back pain 07/29/2022 Hyperlipidemia 07/29/2022 Knee pain 06/24/2022 Cervical myelopathy 12/17/2017 Anxiety 10/21/2017 Bilateral cataracts 10/21/2017 Diabetes mellitus 10/21/2017 Osteoarthritis of knee 10/21/2017 Assessment & Plan (12/09/2022 5:28 PM EDT): -Acute on chronic knee pain -Continue following with [facility], plan for viscosupplementation once approved through health insurance -Describes pain as severe, not sufficiently responding to APAP and tramadol. -Requesting in office IM toradol. History of resolved GI bleed, reports recent eval through [facility] with endoscopy and colonoscopy that were normal. Discussed risks and potential SE with patient. Interested in proceeding. IM toradol administered in office. Will not recommend PO NSAIDs following IM Toradol. Continue with tramadol and APAP. ED precautions. Hypertension 10/21/2017 Diabetic polyneuropathy 10/21/2017 Depression with anxiety 08/12/2009 Diabetes mellitus type 2 with neurological manif estations 08/12/2009 Overview (06/24/2022): Diabetic neuropathy Encounters Date Type Department Care Team Description 06/09/2024 9:30 AM EST Telemedicine [facility] [address] [place] [phone] Karla Lewis RN Chronic pain of left knee 06/09/2024 Telephone [facility] [address] [place] [phone] oRlf Gamble MD 06/09/[address] [address] Rolf Gamble MD Med Refill 06/09/2024 Travel 06/09/[address] [address] Karla Lewis RN Recommend [facility] Tier 2 05/31/2024 11:00 AM EST Office Visit [address] [address] Rolf Gamble MD Iron deficiency anemia, unspecified iron deficiency anemia type (Primary Dx); Pulmonary nodule; Former smoker; Cardiomegaly; Type 2 diabetes mellitus with hyperglycemia, without long-term current use of insulin ([facility]); S/P TKR (total knee replacement), left 05/31/2024 Refill [facility] [address] [place] [phone] Rolf Gamble MD Osteoarthritis of both knees, unspecified osteoarthritis type 05/24/2024 Refill [facility] [address] [place] [address] Rolf Gamble MD Osteoarthritis of both knees, unspecified osteoarthritis type 05/23/2024 Refill [facility] [address] [place] [phone] Felicia Law NP Anxiety 05/23/[address] [phone] Stefanie Mcneal MD Durable Medical Equipment (L&C Form) 05/18/2024 Refill [facility] [address] [place] [address] Rolf Gamble MD Anxiety 05/17/2024 Telephone [facility] [address] [place] [phone] Rolf Gamble MD Medication Question 05/08/2024 Telephone [facility] [address] [place] [phone] Gerri Carrillo OR DME-commode 05/04/2024 Telephone [facility] [address] [place] [phone] Rolf Gamble MD FYI 05/02/2024 Refill [facility] [address] [place] [phone] Rolf Gamble MD Osteoarthritis of knee, unspecified laterality, unspecified osteoarthritis type; Anxiety 05/01/2024 Telephone [facility] [address] [place] [phone] Rolf Gamble MD Durable Medical Equipment 05/01/2024 Telephone [facility] [address] [place] [phone] Rolf Gamble MD Med Refill 04/27/2024 Telephone [facility] [address] [place] [phone] Rolf Gamble MD Durable Medical Equipment 04/27/2024 Refill [facility] [address] [place] [phone] Rolf Gamble MD Osteoarthritis of both knees, unspecified osteoarthritis type 04/25/2024 Telephone [facility] [address] [place] [phone] Rolf Gamble MD Prior Authorization 04/25/2024 Telephone [facility] [address] [place] [phone] Rolf Gamble MD Medication Question 04/24/2024 Refill [facility] [address] [place] [phone] Marcela Ruiz, CYN Osteoarthritis of knee, unspecified laterality, unspecified osteoarthritis type 04/24/2024 Refill [facility] [address] [place] [phone] Vivian Barajas ANP Diabetes mellitus type 2 with neurological manifestations ([facility]) 04/21/2024 Refill [facility] [address] [place] [address] Rolf Gamble MD Type 2 diabetes mellitus with hyperglycemia, without long-term current use of insulin ([facility]); Abnormal chest x-ray; Tobacco use; Iron deficiency anemia, unspecified iron deficiency anemia type; Osteoarthritis of knee, unspecified laterality, unspecified osteoarthritis type 04/20/2024 Refill [facility] [address] [place] [address] Rolf Gamble MD Anxiety; Osteoarthritis of knee, unspecified laterality, unspecified osteoarthritis type; Type 2 diabetes mellitus with hyperglycemia, without long-term current use of insulin ([facility]); Iron deficiency anemia, unspecified iron deficiency anemia type; Abnormal chest x-ray; Tobacco use 04/20/2024 Refill [facility] [address] [place] [address] Rolf Gamble MD Anxiety 04/20/2024 Telephone [facility] [address] [place] [address] Rolf Gamble MD Durable Medical Equipment 04/14/2024 Telephone [facility] [address] [place] [address] Gerri Carrillo OR Dme- [employer] 04/09/2024 Refill [facility] [address] [place] [address] Rolf Gamble MD Osteoarthritis of knee, unspecified laterality, unspecified osteoarthritis type 04/05/2024 Telephone [facility] [address] [place] [address] Rolf Gamble MD Durable Medical Equipment 04/03/2024 Refill [facility] [address] [place] [address] Marcela Ruiz NP Osteoarthritis of knee, unspecified laterality, unspecified osteoarthritis type 04/03/2024 Refill [facility] [address] [place] [address] Vivian Barajas ANP Diabetes mellitus type 2 with neurological manifestations ([facility]) 04/03/2024 Refill [facility] [address] [place] [address] Rolf Gamble MD Abnormal chest x-ray; Tobacco use; Type 2 diabetes mellitus with hyperglycemia, without long-term current use of insulin ([facility]); Osteoarthritis of knee, unspecified laterality, unspecified osteoarthritis type; Iron deficiency anemia, unspecified iron deficiency anemia type 04/03/2024 Telephone [facility] [address] [place] [phone] Rolf Gamble MD Med Refill 04/03/2024 Refill [facility] [address] [place] [phone] Rolf Gamble MD Osteoarthritis of both knees, unspecified osteoarthritis type 03/29/2024 Telephone [facility] [address] [place] [phone] Rolf Gamble MD Medication Question 03/29/2024 Refill [facility] [address] [place] [phone] Rolf Gamble MD Osteoarthritis of knee, unspecified laterality, unspecified osteoarthritis type 03/29/2024 Refill [facility] [address] [place] [phone] Vivian Barajas ANP Diabetes mellitus type 2 with neurological manifestations ([facility]) 03/23/2024 Refill [facility] [address] [place] [phone] Rolf Gamble MD Anxiety 03/23/2024 Refill [facility] [address] [place] [phone] Vivian Barajas ANP Diabetes mellitus type 2 with neurological manifestations ([facility]) 03/21/2024 Refill [facility] [address] [place] [phone] Rolf Gamble MD Osteoarthritis of knee, unspecified laterality, unspecified osteoarthritis type; Chronic pain of left knee 03/17/2024 10:00 AM EST Telemedicine [facility] [address] [place] [phone] Karla Lewis RN Chronic pain of left knee 03/17/2024 Telephone [facility] [address] [place] [address] Karla Lewis, RN BPI & RYLEY scoring 03/17/2024 Travel 03/13/2024 Refill [facility] [address] [place] [address] Vivian Barajas ANP Diabetes mellitus type 2 with neurological manifestations (CMS/HCC) from Last 3 Months Immunizations Name Administration Dates Next Due Hep B, adult 09/10/2023,08/13/2023 Influenza High-dose Quadrivalent Preservative Fr ee 02/10/2023 Influenza injectable quadriv alent IIV4 with preservative 02/08/2019 Influenza injectable quadrivalent preservative f ree 07/20/2022,06/03/2018 Influenza, High Dose Seasonal, Preservative Free 03/06/2024 Influenza, IIV3, injectable 03/23/2017, 2 Moderna Covid-19 Vaccine 6+ Bivalent 07/20/2022 Pfizer Covid-19 Vaccine 12+ 03/06/2024, 3 Pneumococcal Conjugate PCV 20 12/04/2022 Pneumococcal Polysaccharide PPSV23 12/25/2011, RSV Bivalent 04/20/2023 Tdap 02/10/2023,09/25/2011 Zoster, Recombinant 06/23/2023,04/20/2023 Social History Tobacco Use Types Packs/Day Years Used Date Smoking Tobacco: Former Cigarettes Passive Smoke Exposure: Never Smokeless Tobacco: Never Tobacco Cessation:Counseling Given: Not Answered Alcohol Use Standard Drinks/Week Comments Yes 0 [...] Don't know 05/22/2022 9: 34 AM EST Last Filed Vital Signs Vital Sign Reading Time Taken Comments Blood Pressure 139/92 05/31/2024 11:12 AM EST Pulse 116 05/31/2024 11:12 AM EST Temperature 36.8 ??C (98.2 ??F) 05/31/2024 11:[address] Respiratory Rate 12 05/31/2024 11:12 AM EST Oxygen Saturation 97% 05/31/2024 11:12 AM EST Inhaled Oxygen Concentration - - Weight 81.4 kg (179 lb 6.4 oz) 05/31/2024 11:12 AM EST Height 180.3 cm (5' 11 ) 05/31/2024 11:12 AM EST Body Mass Index 25.02 05/31/2024 11:12 AM EST Plan of Treatment Upcoming Encounters Date Type Department Care Team (Late st Contact Info) Description 08/18/2024 10:00 AM EDT Telemedicine [facility] [address] [place] [phone] Karla Lewis RN 08/18/2024 11:15 AM EDT Office Visit [facility] [address] [place] [phone] Name, MD Rolf [address] [place] [address] Health Maintenance Due Date Last Done Comments CT Colonography 1955 FIT DNA/Cologuard 1955 FIT 1955 FOBT 1955 Sigmoidoscopy 1955 Hepatitis C Screening 1974 Hepatitis A Vaccines (1 of 2 - Risk 2-dose series) 12/29/1975 Diabetes: Foot Exam 02/11/2024 02/10/2023, 02/10/2023, 02/10/2023, Additional history exists Hepatitis B Vaccines (3 of 3 - 19+ 3-dose series) 02/12/2024 09/10/2023, 08/13/2023 Diabetes: Hemoglobin A1C 08/29/2024 025, 03/06/2024, 12/06/2023, Additional history exists SDOH Screening 11/25/2024 11/26/2023 Alcohol/Substance Use Screening 12/05/2024 12/06/2023 Depression Screening 12/05/2024 12/06/2023, 12/06/19 Diabetes: Urine Protein Screening 12/12/2024 12/13/2023, 03/08/2023, 06/08/2019 Lipid Panel 12/12/2024 12/13/2023, 03/08/2023 Tobacco Screening 05/31/2025 05/31/2024 Eye Exam 06/01/2025 06/01/2023 Colonoscopy 06/26/2025 06/26/2022, 06/03, 06/18/2022 Colorectal Cancer Screening 06/26/2025 DTaP/Tdap/Td Vaccines (3 - Td or Tdap) 02/10/2033 02/10/2023, 09/25/2011 Pneumococcal Vaccine: 50+ Years Completed 12/04/2022, 12/25/2011, 10/02/2010 RSV Patients and Patients Aged 60 years or older Completed 04/20/2023 Zoster Vaccines Completed 06/23/2023, 04/20/2023 COVID-19 Vaccine Completed 03/06/2024, 10/2022, 07/20/2022 Influenza Vaccine Completed 03/06/2024, , 07/20/2022, Additional history exists HIB Vaccines Aged Out No longer eligi ble based on patient's age to complete this topic HPV Vaccines Aged Out No longer eligi ble based on patient's age to complete this topic IPV Vaccines Aged Out No longer eligi ble based on patient's age to complete this topic Meningococcal Vaccine Aged Out No melecio monique eligible based on patient's age to complete this topic RSV under 20 months Aged Out No longe r eligible based on patient's age to complete this topic Rotavirus Vaccines Aged Out No longer eligible based on patient's age to complete this topic Goals Goal Patient Goal Type Associated Problems Recent Progress Patient-Stated? Author Hemoglobin A1c < 7 Result Component 6.6( 11:14 AM EST) No Martine Broussard PharmD Record your blood sugar as directed Result Component No Martine Broussard PharmD Procedures Procedure Name Priority Date/Time Associated Diagnosis Comments POCT HEMOGLOBIN Routine 05/31/2024 11:27 AM EST Iron deficiency anemia, unspecified iron deficiency anemia type POCT GLYCATED HEMOGLOBIN, TOTAL Routine 05/31/2024 11:14 AM EST Type 2 diabetes mellitus with hyperglycemia, without long-term current use of insulin ([facility]) POCT GLUCOSE Routine 05/31/2024 11:13 AM EST Type 2 diabetes mellitus with hyperglycemia, without long-term current use of insulin ([facility]) ALBUMIN, RANDOM URINE W/CREATININE Routine 12/13/2023 8:44 AM EDT Type 2 diabetes mellitus with hyperglycemia, without long-term current use of insulin (CMS/HCC) Osteoarthritis of left knee, unspecified osteoarthritis type LIPID PANEL, STANDARD Routine 12/13/2023 8:05 AM EDT Type 2 diabetes mellitus with hyperglycemia, without long-term current use of insulin (CMS/[facility]) Osteoarthritis of left knee, unspecified osteoarthritis type HM COLONOSCOPY Routine 06/26/2022 from Last 3 Months or Most Recently Relevant to Health Maintenance Results * POCT Hemoglobin (05/31/2024 11:27 AM EST) Hemoglobin 13.1 13.0 - 17.0 QC Media Lot # [id number] Lot# Expiration Date Blood 05/31/2024 11:2 7 AM EST us Rolf Gamble MD POINT OF CARE TEST ENTER/EDIT OR DERABLES Final Result * (ABNORMAL) POCT HGB A1C (05/31/2024 11:14 AM EST) Hemoglobin A1C 6.6(A) 4.0 - 6.0 % QC Media Lot # [id number] Lot# Expiration Date [id number] Blood 05/31/2024 11:1 4 AM EST us Rolf Gamble MD POINT OF CARE TEST ENTER/EDIT OR DERABLES Final Result * POCT Glucose (05/31/2024 11:13 AM EST) Glucose Blood, POC 166 60 - 200 mg/dL QC Media Lot # [id number] Lot# Expiration Date 53,025 Blood Capillary blood specimen / Unknown 05/31/2024 11:13 AM EST us Rolf Gamble MD POINT OF CARE TEST ENTER/EDIT OR DERABLES Final Result * (ABNORMAL) Albumin, Random Urine W/Creatinine (12/13/2023 8:44 AM EDT) Creatinine, Urine 102.20 mg/dL [facility] Microalbumin Urine 37.0 mg/L H [facility] Microalbum Creatinine Ratio Ur 36.2(H) <30 ug/mg cr [facility] Comment:Albumin/Creatinine R at Reference Ranges: Normal: < 30 ug/mg creatinine Microalbuminuria: 30 - 300 ug/mg creatinineClinical Albuminuria: > 300 ug/mg creatinine Urine (Urine, Random) 12/13/2023 8:44 AM EDT 12/13/2023 10:54 AM EDT us Rolf Gamble MD LAB URINE ORDERABLES Final Resul t Performing Organization Address [facility] Co de Phone Number [facility] [address] [place] [phone] * (ABNORMAL) Lipid Panel, Standard (12/13/2023 8:05 AM EDT) Triglycerides 122 <150 mg/dL [facility] Comment:Desirable Triglyceri de: less than 150 mg/dLBorderline High Triglyceride 150-199 mg/dLHigh Triglyceride: 200-499 mg/dLVery High Triglyceride: greater than or equal to 5OO mg/dL Cholesterol 129 <200 mg/dL [facility] Comment:Desirable Cholestero l: less than 200 mg/dLBorderline High Cholesterol: 200-239 mg/dLHigh Cholesterol: greater than 239 mg/dL LDL Cholesterol Calculated 76 <100 mg/dL [facility] Comment:Desirable LDL: less than 100 mg/dLNear Optimal/Above Optimal LDL: 110- 129 mg/dLBorderline High LDL: 130-159 mg/dLHigh LDL: 160-189 mg/dLVery High LDL: greater than or equal to 190 mg/dL HDL Cholesterol 29(L) >40 mg/dL [facility] Comment:Desirable HDL: great er than 40 mg/dL Note: This HDL assay may give artificially low results in patients with liver disease. Blood Venous blood specimen / Unknown 12/13/2023 8:05 AM EDT 12/13/2023 10:59 AM EDT us Rolf Gamble MD LAB BLOOD ORDERABLES Final Resul t Performing Organization Address City/[facility]/ZIP Co de Phone Number [facility] [address] [place] [address] [phone] * Hm Colonoscopy (06/26/2022) Colonoscopy PERFORMED Comment:REPEAT IN 3 YEARS Historical Provider HEALTH MAINTENANCE Final Result from Last 3 Months or Most Recently Relevant to Health Maintenance Insurance [facility] Care Teams Director Hardware Relationship Specialty Start Date End Date Name, MD Rolf [address] [place] [address] PCP - General Family Medicine 10/21/17 Martine Broussard PharmD [address] [place] [address] Pharmacist Internal Medicine 04/20/23
--- OUTSIDE RECORDS SUMMARY | 2024-06-12 15:30 | XMS_ITS | Encounter Summary ---
Author Organization [employer] Address [address] [place] [address] 7t [place] [address] Care Team Providers Care Supervisor Border Department Name Role Phone Name, Rolf PARKS Primary Care Provider [phone] Puia, Martine PharmD Unavailable Puia, Martine PharmD Unavailable Reason for Visit * Reason Onset Date Comments Referral 09/17/2022 Schedule TRAVEL MED SURG RN Initial appt 09/17/2022 Hallie negrete TRAVEL MED SURG RN initial Encounter Details Date Type Department Care Team (Late st Contact Info) Description 09/17/2022 Telephone [facility] [address] [place] [address] Name, MD Rolf [address] [place], [place] [phone] Referral; Schedule TRAVEL MED SURG RN Initial appt (Schedule TRAVEL MED SURG RN initial) Social History Tobacco Use Types Packs/Day Years Used Date Smoking Tobacco: Every Day Cigarettes Passive Smoke Exposure: Never Smokeless Tobacco: Never Alcohol Use Standard Drinks/Week Comments Not Currently 0 (1 standard drink = 0.6 oz pur e alcohol) Alcohol Answer Date Recorded Frequency of Alcohol [...] Don't know 05/22/2022 9: 34 AM EST COVID-19 Exposure Response Date Recorded In the last 10 days, have yo u been in contact with someone who was confirmed or suspected to have Coronavirus/COVID-19? No / Unsure 11/05/2022 10:07 AM EDT documented as of this encounter Miscellaneous Notes * Telephone Encounter - Devi Cardoza - 10/06/2022 4:31 PM EDT Labor Relations Worker called and lvm for pt stating that [facility] was called to see if they can book him sooner but unfortunately they are not booking sooner then office they are actually booking the soonest in Marchand have providers that are already booking for Jun. Pt was advised to call [facility] and ask to scheduled and be placed on a waitlist. * Telephone Encounter - Karla Lewis RN - 09/24/2022 11:35 AM EDT TC via P/I#[id number], spoke with dtr Annetta. Updated pts new phone number in pts chart. Dtr scheduled his TRAVEL MED SURG RN initial appt for 11/25/22 @ 11:30am. Dtr asked to remind him to bring his Tramadol and Clonazepam medication to the appointment and to check in on red team. Dtr stated she understood. Appt reminder mailed. * Telephone Encounter - Fracisco Henderson - 09/17/2022 9:41 AM EDT Tc from pt daughter stating they attempted to schedule an appt with pulmonary dept at [facility] however they are scheduling out for December and pt does not want to wait too long and is requesting to be referred to [facility]. Please contact at [phone] documented in this encounter Plan of Treatment Upcoming Encounters Date Type Department Care Team (Late st Contact Info) Description 08/18/2024 10:00 AM EDT Telemedicine [facility] MEDICINE [address] [place] [address] Karla Lewis RN 08/18/2024 11:15 AM EDT Office Visit [facility] [address] [place] [address] Name, MD Rolf [address] [place] [address] documented as of this encounter Goals Goal [...] as of this encounter Care Teams Supervisor Border Department Relationship Specialty Start Date End Date Name, MD Rolf [address] [place] [address] PCP - General Family Medicine 10/21/17 Martine Broussard PharmD [address] [place] [address] Pharmacist Internal Medicine 04/20/23 Martine Broussard PharmD [address] [place] [address] Pharmacist Internal Medicine 04/20/23 08/11/23 documented as of this encounter
--- OUTSIDE RECORDS SUMMARY | 2024-06-12 15:30 | XMS_ITS | Encounter Summary ---
Author Organization [employer] Address [address] [facility] 7t [place] [address] Care Team Providers Care Rn Dermatology Name Role Phone Name, Rolf PARKS Primary Care Provider [phone] Puia, Martine PharmD Unavailable [phone] Puia, Martine PharmD Unavailable [phone] Reason for Visit * Reason Comments Med Refill Encounter Details Date Type Department Care Team ([facility] st Contact Info) Description 07/12/2023 Refill [facility] [address] [place], [place] [phone] Name, MD Rolf [address] [place], [place] [phone] Anxiety Social History Tobacco Use Types Packs/Day [...] Info) Description 08/18/2024 10:00 AM EDT Telemedicine [facility] [address] [place] [address] Karla Lewis RN 08/18/2024 11:15 AM EDT Office Visit [facility] [address] [place] [address] Name, MD Rolf [address] [place] [address] documented as of this encounter Goals Goal [...] as of this encounter Care Teams Rn Dermatology Relationship Specialty Start Date End Date Rolf Gamble MD [address] [place] [address] PCP - General Family Medicine 10/21/17 Martine Broussard, PharmD [address] [place] [address] Pharmacist Internal Medicine 04/20/23 Martine Broussard PharmD [address] [place], [place] [address] [address] Pharmacist Internal Medicine 04/20/23 08/11/23 documented as of this encounter
--- OUTSIDE RECORDS SUMMARY | 2024-06-12 15:30 | XMS_ITS | Encounter Summary ---
Author Organization [employer] Address [address] [facility] 7t [place] [address] Care Team Providers Care Machine Operator Replanter Name Role Phone Name, Rolf PARKS Primary Care Provider [phone] Puia, Martine PharmD Unavailable Puia, Martine PharmD Unavailable [phone] Reason for Visit * Reason Onset Date Comments Appointment Request 09/17/2022 Med Refill 09/17/2022 Scheduled follow up appt with daughter but she would like a refill for pts med on tramadol and was wondering if there is another sleeve fixer in [place]. Her call back number is [phone]. Encounter Details Date Type Department Care Team (Late st Contact Info) Description 09/17/2022 Telephone [facility] MEDICINE [address] [place] [address] Name, MD Rolf [address] [place] [address] Appointment Request; Med Refill (Scheduled follow up appt with daughter but she would like a refill for pts med on tramadol and was wondering if there is another sleeve fixer in [place]. Her call back number is [phone]. ) Social History Tobacco Use Types Packs/Day Years [...] encounter Miscellaneous Notes * Telephone Encounter - Angelica Barnhart RN - 09/18/2022 10:59 AM EDT Please review and advise if new referral to pulmonology to [facility] can be generated. * Telephone Encounter - Ruth Anaya - 09/18/2022 9:06 AM EDT Scheduled follow up appt with daughter but she would like a refill for pts med on tramadol and was wondering if there is another sleeve fixer in [place]. Her call back number is [phone]. * Telephone Encounter - Fracisco Henderson - 09/17/2022 9:37 AM EDT Tc from pt daughter Annetta requesting to schedule a 2 MO f/u from last visit with PCP, Pt has no recalls however per office notes PCP requested ( Follow up in about 2 months (around 10/21/2022). ) , Control Integration Engineer attempted to schedule however zero availability, Daughter is requesting a call back, stated ptneeds to be scheduled. Please contact at [phone] documented in this encounter Plan of Treatment Upcoming Encounters Date Type Department Care Team (Late st Contact Info) Description 08/18/2024 10:00 AM EDT Telemedicine [facility] MEDICINE [address] [place] [address] Karla Lewis RN 08/18/2024 11:15 AM EDT Office Visit [facility] [address] [place] [address] Name, MD Rolf [address] [place] [address] documented as of this encounter Goals Goal [...] documented as of this encounter Care Teams Machine Operator Replanter Relationship Specialty Start Date End Date Name, MD Rolf [address] [place] [address] PCP - General Family Medicine 10/21/17 Martine Broussard PharmD [address] [place] [address] Pharmacist Internal Medicine 04/20/23 Martine Broussard PharmD [address] [place] [address] Pharmacist Internal Medicine 04/20/23 08/11/23 documented as of this encounter
--- OUTSIDE RECORDS SUMMARY | 2024-06-12 15:30 | XMS_ITS | Encounter Summary ---
Author Organization [employer] Address [address] [facility] 7t [place] [address] Care Team Providers Care Instructor Robotics Name Role Phone Name, Rolf PARKS Primary Care Provider [phone] Martine Broussard PharmD Unavailable [phone] Reason for Visit * Reason Comments Med Refill Encounter Details Date Type Department Care Team (Late st Contact Info) Description 04/20/2024 Refill [facility] [address] [place], [place] [phone] Name, MD Rolf [address] [place] [address] Anxiety; Osteoarthritis of knee, unspecified laterality, unspecified osteoarthritis type; Type 2 diabetes mellitus with hyperglycemia, without long-term current use of insulin ([facility]); Iron deficiency anemia, unspecified iron deficiency anemia type; Abnormal chest x-ray; Tobacco use Social History Tobacco Use Types Packs/Day Years [...] EDT Telemedicine [facility]INE [address] [place] [address] Karla Lewis RN 08/18/2024 11:15 AM EDT Office Visit [facility] [address] [place] [address] Name, MD Rolf [address] [place] [address] documented as of this encounter Goals Goal Patient Goal Type Associated Problems Recent Progress Patient-Stated? Author Hemoglobin A1c < 7 Result Component 6.6( 11:14 AM EST) No PuiaLanceMartine, PharmD Record your blood sugar as directed Result Component No Puia Martine, PharmD documented as of this encounter Visit Diagnoses Diagnosis Anxiety Anxiety state, unspecified Osteoarthritis of knee, unspecified laterality, unspecified osteoarthritis type Type 2 diabetes mellitus with hyperglycemia, without long-term current use of insulin ([facility]) Iron deficiency anemia, unspecified iron deficiency anemia type Abnormal chest x-ray Nonspecific (abnormal) findings on radiological and other examination of lung field Tobacco use documented in this encounter Additional Health Concerns Assessment Noted Time PHQ-9 Depression Total Score: 0 12/06/19 24 10:09 AM EDT documented as of this encounter Care Teams Instructor Robotics Relationship Specialty Start Date End Date Name, MD Rolf [address] [place] [address] PCP - General Family Medicine 10/21/17 Martine Broussard PharmD [address] [place] [address] Pharmacist Internal Medicine 04/20/23 documented as of this encounter
--- OUTSIDE RECORDS SUMMARY | 2024-06-12 15:31 | XMS_ITS | Encounter Summary ---
Author Organization [employer] Address [address] [facility] 7t [place] [address] Care Team Providers Care Certified Physician'S Assistant Name Role Phone Name, Rolf PARKS Primary Care Provider [phone] Martine Broussard PharmD Unavailable [phone] Reason for Visit * Reason Comments Med Refill Encounter Details Date Type Department Care Team ([facility] st Contact Info) Description 11/26/2023 Refill [facility] MED[facility]INE [address] [place], [place] [phone] Vivian Barajas, ANP [address] [place] [address] Diabetes mellitus type 2 with neurological manifestations [...] Telemedicine [facility] MEDICINE [address] [place] [address] Karla Lewis RN 08/18/2024 11:15 AM EDT Office Visit [facility]INE [address] [place] [address] Name, MD Rolf [address] [place] [address] documented as of this encounter Goals Goal [...] documented as of this encounter Care Teams Certified Physician'S Assistant Relationship Specialty Start Date End Date Rolf Gamble MD [address] [place] [address] PCP - General Family Medicine 10/21/17 Lance Broussardyssa, PharmD [address] [place] [address] Pharmacist Internal Medicine 04/20/23 documented as of this encounter
--- OUTSIDE RECORDS SUMMARY | 2024-06-12 15:31 | XMS_ITS | Encounter Summary ---
Author Organization [employer] Address [address] [facility] 7t [place] [address] Care Team Providers Care Machine Learning Intern Name Role Phone Name, Rolf PARKS Primary Care Provider [phone] Martine Broussard PharmD Unavailable [phone] Reason for Visit * Reason Comments Med Refill Encounter Details Date Type Department Care Team (Late st Contact Info) Description 01/14/2024 Refill [facility] [address] [place], [place] [phone] Name, MD Rolf [address] [place] [address] Anxiety; Osteoarthritis of knee, unspecified laterality, unspecified osteoarthritis type; Chronic pain of left knee; Iron deficiency anemia, unspecified iron deficiency anemia [...] Info) Description 08/18/2024 10:00 AM EDT Telemedicine [facility] [address] [place] [address] Karla Lewis RN 08/18/2024 11:15 AM EDT Office Visit [facility] [address] [place] [address] Name, MD Rolf [address] [place] [address] documented as of this encounter Goals Goal [...] osteoarthritis type Chronic pain of left knee Iron deficiency anemia, unspecified iron deficiency anemia type documented in this encounter Additional Health Concerns Assessment Noted Time PHQ-9 Depression Total Score: 0 12/06/19 24 10:09 AM EDT documented as of this encounter Care Teams Machine Learning Intern Relationship Specialty Start Date End Date Name, MD Rolf [address] [place] [address] PCP - General Family Medicine 10/21/17 Martine Broussard PharmD [address] [place] [address] Pharmacist Internal Medicine 04/20/23 documented as of this encounter
--- OUTSIDE RECORDS SUMMARY | 2024-06-12 15:31 | XMS_ITS | Encounter Summary ---
Author Organization [employer] Address [address] [facility] 7t [place] [address] Care Team Providers Care Rope Tow Operator Name Role Phone Name, Rolf PARKS Primary Care Provider [phone] Puia, Martine PharmD Unavailable [phone] Puia, Martine PharmD Unavailable [phone] Reason for Visit * Reason Onset Date Comments Med Refill 01/01/2023 Encounter Details Date Type Department Care Team (Late st Contact Info) Description 01/01/2023 Telephone [facility] MEDICINE [address] [place], [place] [phone] Name, MD Rolf [address] [place], [place] [phone] Med Refill Social History Tobacco Use Types [...] Telephone Encounter - Mary Peres LPN - 01/01/2023 11:03 AM EDT Medication pended to PCP. * Telephone Encounter - Fracisco Henderson - 01/01/2023 11:00 AM EDT Tc from pt requesting a refill for gabapentin (Neurontin) 300 MG capsule documented in this encounter Plan of Treatment Upcoming Encounters Date Type Department Care Team (Late st Contact Info) Description 08/18/2024 10:00 AM EDT Telemedicine [facility] MEDICINE [address] [place] [address] Karla Lewis RN 08/18/2024 11:15 AM EDT Office Visit [facility] [address] [facility] [place] [address] Name, MD [facility]olf [facility] [place] [address] documented as of this encounter Goals Goal Patient Goal Type Associated Problems Recent Progress Patient-Stated? Author Hemoglobin A1c < 7 Result Component 6.6( 5 11:14 AM EST) No PuiaLanceMartine, PharmD Record your blood sugar as directed Result Component No Puia Martine, PharmD documented as of this encounter Visit Diagnoses Not on filedocumented in this encounter Additional Health Concerns Assessment Noted Time PHQ-9 Depression Total Score: 14 023 1:07 PM EDT documented as of this encounter Care Teams Rope Tow Operator Relationship Specialty Start Date End Date Name, [place] [address] PCP - General Family Medicine 10/21/17 Martine Broussard, [place] [address] Pharmacist Internal Medicine 04/20/23 Martine Broussard, [place] [address] Pharmacist Internal Medicine 04/20/23 08/11/23 documented as of this encounter
--- OUTSIDE RECORDS SUMMARY | 2024-06-12 15:31 | XMS_ITS | Encounter Summary ---
Author Organization [employer] Address [address] [facility] 7 [place] [address] Care Team Providers Care Methods Analyst Data Processing Name Role Phone NameRolf MD Primary Care Provider [phone] Martine Broussard PharmD Unavailable [phone] Reason for Visit * Reason Onset Date Comments Call Back Request 12/15/2023 Encounter Details Date Type Department Care Team ([facility] st Contact Info) Description 12/15/2023 Telephone [facility] [address] [place], [place] [phone] Name, MD Rolf [address] [place] [address] Call Back Request Social History Tobacco Use Types Packs/Day Years [...] the past 12 months, has t he [employer]TR[employer], gas, oil or water company threatened to shut off services in your home? No 11/26/2023 Depression Answer Date Recorded Patient Health Questionnaire-2 Score 0 12/06/2023 Sex and Gender Information Value Date Recorded Sex Assigned at Male 03/02/2022 10:19 AM EDT Legal Sex Male 10:19 AM EDT Gender Identity Male 05/22/2022 9:34 AM EST Sexual Orientation Don't know 05/22/2022 9: 34 AM EST documented as of this encounter Miscellaneous Notes * Telephone Encounter - Karla Lewis RN - 12/15/2023 2:31 PM EDT Return call to alan Littlejohn provided by Josefina Owens, daughter stated that PCP was going to stop Tramadol and start patient on oxycodone. Daughter stated she has not picked up Tramadol yet thatwas sent to [facility]. Reviewed PCP note 12/06/23 again, no mention of narcotic change. Will forward this message to PCP and call daughter back with PCP's decision. Will call [facility] and cancel Tramadol RX if appropriate. * Telephone Encounter - Nela Whalen - 12/15/2023 1:10 PM EDT Tc from daughter requesting a call back, daughter will like to know if pt should take both medications, Tramadol and Clonazepam, please contact. documented in this encounter Plan of Treatment Upcoming Encounters Date Type Department Care Team (Late st Contact Info) Description 08/18/2024 10:00 AM EDT Telemedicine [facility] [address] [place] [address] Karla Lewis, RN 08/18/2024 11:15 AM EDT Office Visit [facility] [address] [place] [address] Name, MD Rolf [address] [place] [address] documented as of this encounter Goals Goal [...] documented as of this encounter Care Teams Methods Analyst Data Processing Relationship Specialty Start Date End Date NameRolf MD [address] [place] [address] PCP - General Family Medicine 10/21/17 Martine Broussard, PharmD [address] [place] [address] Pharmacist Internal Medicine 04/20/23 documented as of this encounter
--- OUTSIDE RECORDS SUMMARY | 2024-06-12 15:31 | XMS_ITS | Encounter Summary ---
Author Organization [employer] Address 75 [facility] 7t [place] [address] Care Team Providers Care Reversing Mill Roller Name Role Phone Rolf Gamble MD Primary Care Provider [phone] Martine Broussard PharmD Unavailable [phone] Reason for Referral * Imaging (Routine) - Closed Specialty Diagnoses / Procedures Referred By Contac t Referred To Contact Cardiology Diagnoses Cardiomegaly Procedures Transthoracic Echo (TTE) Complete NameRolf MD [address] [place] [address] Phone: tel: fax: [address] Phone: tel: fax: Referral ID Status Reason Start Date Expiration Date V isits Requested Visits Authorized [id number] Closed Perform Procedure 05/31/2024 05/31/2025 1 1 Reason for Visit * Reason Comments Follow-up Encounter Details Date Type Department Care Team (Late st Contact Info) Description 05/31/2024 11:00 AM EST Office Visit [facility] [address] [place], [place] [phone] Rolf Gamble MD [address] [place] [address] Iron deficiency anemia, unspecified iron deficiency anemia type (Primary Dx); Pulmonary nodule; Former smoker; Cardiomegaly; Type 2 diabetes mellitus with hyperglycemia, without long-term current use of insulin ([facility]/HCC); S/P TKR (total knee replacement), left Social History Tobacco Use Types Packs/Day Years [...] housing situation today? I have riyajaky taylor 11/26/[address] you [...] the past 12 months, has t he [employer], gas, oil or water company threatened to [...] AM EST documented as of this encounter Last Filed Vital Signs Vital Sign Reading [...] Mass Index 25.02 05/31/2024 11:12 AM EST documented in this encounter Progress Notes * Rolf Gamble MD - 05/31/2024 11:00 AM EST Subjective Patient ID: Hong Antoine is a 68 y.o. male who presents for Follow-up. Patient comes for a follow-up visit. He is accompanied by his granddaughter. Since his last appointment he had [place] [facility] Patient tolerated the procedure well. He has been doing physical therapy at home. The patient had the knee replacement surgery at the end of April and he was seen [place] [facility] [place] in early May because of knee pain and swelling. He was found to have mild anemia (slightly worse than the postoperative period at 9.9), no evidence of GI bleed. He had ultrasound of the left leg that was negative for DVT. CT of the chest was negative for PE but he had the incidental finding of pulmonary nodules and repeat CT in 6 months was recommended. Today the patient denies any blood in the stool or black stool. Wxopm-hv-nwgl of hemoglobin showed normalization of hemoglobin at 13. Blood sugars well-controlled based on hemoglobin A1c. He denies any respiratory symptoms. He quit smoking about 2 years ago. He is using his inhalers asprescribed. CT and chest x-[place] done [place] [facility] [place] showed evidence of cardiomegaly. He also has history of chronic sinus tachycardia. Normal hemoglobin today. No fevers or chills. Normal TSH in the past. Only medication added on discharge from [facility] [place] Eliquis for DVT prevention. He will be finishing the Eliquis tomorrow (was prescribed for 30 days). Review of Systems Constitutional: Negative for chills, fatigue and fever. HENT: Negative for sore throat. Respiratory: Negative for cough, chest tightness and shortness of breath. Cardiovascular: Negative for chest pain, palpitations and leg swelling. Gastrointestinal: Negative for abdominal pain and blood in stool. Musculoskeletal: Chronic knee pain. 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 Smoking Status Former BSA 2.02 m?? Objective Physical Exam Constitutional: Appearance: Normal appearance. Cardiovascular: Rate and Rhythm: Normal rate and regular rhythm. Heart sounds: No murmur heard. Pulmonary: Effort: Pulmonary effort is normal. No respiratory distress. Breath sounds: No wheezing, rhonchi or rales. Abdominal: Palpations: Abdomen is soft. Tenderness: There is no abdominal tenderness. Musculoskeletal: Right lower leg: No edema. Left lower leg: No edema. Comments: Well-healed scar on the anterior left knee skin. Mild left knee swelling. Antalgic gait. The patient comes using a walker. Neurological: Mental Status: He is alert. Latest Reference Range & Units 05/31/24 11:13 05/31/24 11:14 05/31/24 11:27 Glucose Blood, POC 60 - 200 mg/dL 166 Hemoglobin 13.0 - 17.0 13.1 Hemoglobin A1c 4.0 - 6.0 % 6.6 ! QC Media Lot # [id number] !: Data is abnormal Lab Results Component Value Date TSH 1.56 04/07/2023 Current Outpatient Medications on File Prior to Visit Medication Sig Dispense Refill Acetaminophen Extra Strength 500 MG tablet TAKE ONE TABLET BY MOUTH EVERY 8 HOURS NEEDED FOR PAIN (VIAL) 90 tablet 3 albuterol (2.5 MG/3ML) 0.083% nebulizer solution Take 3 mL (2.5 mg) by nebulization every 6 (six) hours if needed for wheezing. 75 mL 11 albuterol 108 (90 Base) MCG/ACT inhaler inhale 2 puff by inhalation route every 4 - 6 hours as needed 18 g 11 atorvastatin (Lipitor) 40 MG tablet Take 1 tablet (40 mg) by mouth Once per day. 30 tablet 11 Blood Glucose Monitoring Suppl (ONE TOUCH ULTRA 2) w/Device kit Use once a day 1 kit 0 Diclofenac Sodium 1 % gel APPLY 4 GRAMS TO THE AFFECTED KNEE TWICE A DAY (BULK) 100 g 3 Dulaglutide 4.5 MG/0.5ML solution auto-injector Inject 0.5 mL (4.5 mg) under the skin 1 (one) time per week. Inject 4.5 mg under the skin 1 (one) time per week. 2 mL 11 Eliquis 2.5 MG tablet Take 1 tablet by mouth 2 times daily. escitalopram (Lexapro) 10 MG tablet TAKE 1 TABLET(10 MG) BY MOUTH IN THE MORNING 30 tablet 2 FeroSul 325 (65 Fe) MG tablet TAKE ONE TABLET BY MOUTH EVERY OTHER DAY (VIAL) 15 tablet 5 Fluticasone-Salmeterol 500-50 MCG/ACT aerosol powder INHALE ONE PUFF BY MOUTH TWICE A DAY (BULK) 60each 5 glucose blood (NewvemTouch Ultra) test strip Use once a day 50 each 5 metFORMIN (Glucophage) 1000 MG tablet take 1 tablet by oral route 2 times every day with morning and evening meals 60 tablet 11 naloxone (Narcan) 4 mg/0.1 mL nasal spray Administer 1 spray (4 mg) into affected nostril(s) if needed for opioid reversal. May repeat every 2-3 minutes if needed, alternating nostrils, until medicalassistance becomes available. 2 each 3 omeprazole (PriLOSEC) [address] capsule take 1 capsule by oral route every day 30 minutes to 1 hour before a meal 30 capsule 11 OneTouch Delica Lancets 33G misc Use once a day 100 each 5 Spacer/Aero-Holding Chambers device Use daily with MDI 1 each 0 traZODone (Desyrel) 50 MG tablet TAKE 1 TABLET BY MOUTH AT BEDTIME 30 tablet 3 Umeclidinium Barker (Incruse Ellipta) 62.5 MCG/ACT aerosol powder Inhale 1 Act (62.5 mcg) Once perday. Inhale 1 each in the morning. 30 each 11 [DISCONTINUED] clonazePAM (KlonoPIN) 2 MG tablet TAKE ONE TABLET BY MOUTH EVERY EVENING AT BEDTIME NEEDED (VIAL) Do not start before May 22, 2024. 28 tablet 0 [DISCONTINUED] gabapentin (Neurontin) 300 MG capsule TAKE ONE CAPSULE BY MOUTH TWICE A DAY (VIAL) 60 capsule 0 [DISCONTINUED] oxyCODONE-acetaminophen (Percocet) 5-325 MG tablet Take 1 tablet by mouth 2 times daily for 28 days. 56 tablet 0 No current facility-administered medications on file prior to visit. Assessment/Plan Diagnoses and all orders for this visit: Iron deficiency anemia, unspecified iron deficiency anemia type Comments: Resolved. Continue iron supplements for now. I will probably discontinue iron supplements next visit provided hemoglobin still normal. Orders: - POCT Hemoglobin Pulmonary nodule Comments: CT [place] [facility] [place] scanned in the patient's chart. Repeat CT chest in 6 months. Former smoker Comments: See above. He quit smoking 2 years ago. Cardiomegaly Comments: I am sending the patient for echocardiogram. Further recommendation based on the results. Orders: - Transthoracic Echo (TTE) Complete; Future Type 2 diabetes mellitus with hyperglycemia, without long-term current use of insulin ([facility]) Comments: Continue current meds and avoid sweets. Orders: - POCT Glucose - POCT HGB A1C S/P TKR (total knee replacement), left Comments: Continue PT, continue current pain medication regimen keep follow-up appointment with orthopedics, he will be finishing with DVT prophylaxis with Eliquis this week. Orders: - clonazePAM (KlonoPIN) 2 MG tablet; TAKE ONE TABLET BY MOUTH EVERY EVENING AT BEDTIME NEEDED (VIAL) - oxyCODONE-acetaminophen (Percocet) 5-325 MG tablet; Take 1 tablet by mouth 2 times daily for 28 days. - gabapentin (Neurontin) 300 MG capsule; TAKE ONE CAPSULE BY MOUTH TWICE A DAY (VIAL) documented in this encounter Plan of Treatment Upcoming Encounters Date Type Department Care Team (Late st Contact Info) Description 08/18/2024 10:00 AM EDT Telemedicine [facility] [address] [place] [phone] Karla Lewis RN 08/18/2024 11:15 AM EDT Office Visit [facility] [address] [place] [address] Name, MD Rolf [address] [place] [place] [address] Scheduled Orders Name Type Priority Associated Diagnoses Order Schedule Transthoracic Echo (TTE) Complete Echocardiography Routine Cardiomegaly Expected: 05/31/2024 (Approximate), Expires: 05/31/2026 documented as of this encounter Goals Goal Patient Goal Type Associated Problems Recent Progress Patient-Stated? Author Hemoglobin A1c < 7 Result Component 6.6( 11:14 AM EST) No Martine Broussard, PharmLexi Record your blood sugar as directed Result Component No Martine Broussard PharmLexi documented as of this encounter Procedures Procedure Name Priority Date/Time Associated Diagnosis Comments POCT HEMOGLOBIN Routine 05/31/2024 11:27 AM EST Iron deficiency anemia, unspecified iron deficiency anemia type POCT GLYCATED HEMOGLOBIN, TOTAL Routine 05/31/2024 11:14 AM EST Type 2 diabetes mellitus with hyperglycemia, without long-term current use of insulin ([facility]) POCT GLUCOSE Routine 05/31/2024 11:13 AM EST Type 2 diabetes mellitus with hyperglycemia, without long-term current use of insulin ([facility]) documented in this encounter Results * POCT Hemoglobin (05/31/2024 11:27 AM EST) Hemoglobin 13.1 13.0 - 17.0 QC Media Lot # [id number] Lot# Expiration Date Blood 05/31/2024 11:2 7 AM EST Rolf Gamble MD POINT OF CARE TEST [...] CARE TEST ENTER/EDIT OR DERABLES Final Result documented in this encounter Visit Diagnoses Diagnosis Iron deficiency anemia, unspecified iron deficiency anemia type- Primary Pulmonary nodule Other diseases of lung, not elsewhere classified Former smoker Personal history of tobacco use, presenting hazards to health Cardiomegaly Type 2 diabetes mellitus with hyperglycemia, without long-term current use of insulin ([facility]) S/P TKR (total knee replacement), left documented in this encounter Additional Health Concerns Assessment Noted Time PHQ-9 Depression Total Score: 0 12/06/19 24 10:09 AM EDT documented as of this encounter Care Teams Reversing Mill Roller Relationship Specialty Start Date End Date Name, MD Rolf [address] [place] [address] PCP - General Family Medicine 10/21/17 Martine Broussard PharmD [address] [place] [address] Pharmacist Internal Medicine 04/20/23 documented as of this encounter
--- OUTSIDE RECORDS SUMMARY | 2024-06-12 15:31 | XMS_ITS | Encounter Summary ---
Author Organization [employer] Address [address] [facility] 7t [place] [address] Care Team Providers Care Animation Director Name Role Phone Name, Rolf PARKS Primary Care Provider [phone] Martine Broussard PharmD Unavailable [phone] Reason for Visit * Reason Comments Med Refill Encounter Details Date Type Department Care Team (Late st Contact Info) Description 01/28/2024 Refill [facility] [address] [place], [place] [phone] Name, MD Rolf [address] [place] [address] Iron deficiency anemia, unspecified iron deficiency anemia type; Chronic pain of left knee; Anxiety; Osteoarthritis of knee, unspecified laterality, unspecified [...] AM EDT Telemedicine [facility] [address] [place] [phone] Karla Lewis RN 08/18/2024 11:15 AM EDT Office Visit [facility] [address] [place] [address] Name, MD Rolf [address] [place] [address] documented as of this encounter Goals Goal Patient Goal Type Associated Problems Recent Progress Patient-Stated? Author Hemoglobin A1c < 7 Result Component 6.6( 11:14 AM EST) No Martine Broussard, PharmD Record your blood sugar as directed Result Component No Martine Broussard, PharmD documented as of this encounter Visit Diagnoses Diagnosis Iron deficiency anemia, unspecified iron deficiency anemia type Chronic pain of left knee Anxiety Anxiety state, unspecified Osteoarthritis of knee, unspecified laterality, unspecified osteoarthritis type documented in this encounter Additional Health Concerns Assessment Noted Time PHQ-9 Depression Total Score: 0 12/06/19 24 10:09 AM EDT documented as of this encounter Care Teams Animation Director Relationship Specialty Start Date End Date Name, MD Rolf [address] [place] [address] PCP - General Family Medicine 10/21/17 Martine Broussard PharmD [address] [place] [address] Pharmacist Internal Medicine 04/20/23 documented as of this encounter
--- OUTSIDE RECORDS SUMMARY | 2024-06-12 15:31 | XMS_ITS | Encounter Summary ---
Author Organization [employer] Address 75 [facility] 7t [place] [address] Care Team Providers Care Manager Corporate Responsibility Name Role Phone Name, Rolf PARKS Primary Care Provider [phone] Martine Broussard PharmD Unavailable [phone] Reason for Visit * Reason Comments Med Refill Encounter Details Date Type Department Care Team (Late st Contact Info) Description 02/02/2024 Refill [facility] [address] [place], [place] [phone] Name, MD Rolf [address] [place] [address] Iron deficiency anemia, unspecified iron deficiency anemia [...] AM EDT Telemedicine [facility] [address] [place] [phone] Karla Lewis RN 08/18/2024 11:15 AM EDT Office Visit [facility] [address] [place] [phone] Name, MD Rolf [address] [place] [phone] documented as of this encounter Goals Goal [...] as of this encounter Care Teams Manager Corporate Responsibility Relationship Specialty Start Date End Date Name, MD Rolf [address] [place] [address] PCP - General Family Medicine 10/21/17 Martine Broussard PharmD [address] [place] [address] Pharmacist Internal Medicine 04/20/23 documented as of this encounter
--- OUTSIDE RECORDS SUMMARY | 2024-06-12 15:31 | XMS_ITS | Encounter Summary ---
Author Organization [employer] Address [address] [facility] 7t [place] [address] Care Team Providers Care Jig Borer Name Role Phone Name, Rolf PARKS Primary Care Provider [phone] Martine Broussard PharmD Unavailable [phone] Reason for Visit * Reason Comments Med Refill Encounter Details Date Type Department Care Team ([facility] st Contact Info) Description 11/17/2023 Refill [facility] [address] [place], [place] [phone] Name, MD Rolf [address] [place] [address] Anxiety Social History Tobacco Use Types Packs/Day [...] [facility] [address] [place] [phone] Karla Lewis RN 08/18/2024 11:15 AM EDT Office Visit [facility] [address] [place] [phone] Name, MD Rolf [address] [place] [address] documented as of this encounter Goals Goal [...] documented as of this encounter Care Teams Jig Borer Relationship Specialty Start Date End Date NameRolf MD [address] [place] [address] PCP - General Family Medicine 10/21/17 Puia, Martine, PharmD [address] [place] [address] Pharmacist Internal Medicine 12/19/23 documented as of this encounter
--- OUTSIDE RECORDS SUMMARY | 2024-06-12 15:31 | XMS_ITS | Encounter Summary ---
Author Organization [employer] Address [address] [facility] 7t [place] [address] Care Team Providers Care Diesel Pile Driver Operator Name Role Phone Name, Rolf PARKS Primary Care Provider [phone] Martine Broussard PharmD Unavailable [phone] Reason for Visit * Reason Comments Med Refill Encounter Details Date Type Department Care Team ([facility] st Contact Info) Description 11/19/2023 Refill [facility] [address] [place], [place] [phone] Name, MD Rolf [address] [place] [address] Anxiety Social History Tobacco Use Types Packs/Day [...] Info) Description 08/18/2024 10:00 AM EDT Telemedicine [facility] [address] [place] [address] Karla Lewis RN 08/18/2024 11:15 AM EDT Office Visit [facility] [address] [place] [address] Name, MD Rolf [address] [place] [phone] documented as of this encounter Goals Goal [...] documented as of this encounter Care Teams Diesel Pile Driver Operator Relationship Specialty Start Date End Date NameRolf MD [address] [place] [address] PCP - General Family Medicine 10/21/17 Puia, Martine, PharmD [address] [place] [address] Pharmacist Internal Medicine 12/19/23 documented as of this encounter
--- OUTSIDE RECORDS SUMMARY | 2024-06-12 15:31 | XMS_ITS | Encounter Summary ---
Author Organization [employer] Address 75 [facility] 7t [place] [address] Care Team Providers Care Wireless Sales Expert Name Role Phone Name, Rolf PARKS Primary Care Provider Martine Broussard PharmD Unavailable [phone] Reason for Visit * Reason Comments Med Refill Encounter Details Date Type Department Care Team (Late st Contact Info) Description 12/08/2023 Refill [facility] [address] [place], [place] [phone] Name, MD Rolf [address] [place] [address] Anxiety; Chronic pain of left knee Social History [...] 08/18/2024 10:00 AM EDT Telemedicine [facility] [address] [place] [phone] Karla Lewis RN 08/18/2024 11:15 AM EDT Office Visit [facility] [address] [place] [address] Rolf Gamble MD [address] [place] [address] documented as of this encounter Goals Goal Patient Goal Type Associated Problems Recent Progress Patient-Stated? Author Hemoglobin A1c < 7 Result Component 6.6( 11:14 AM EST) No Puia, Martine, PharmD Record your blood sugar as directed Result Component No Puia, Martine, PharmD documented as of this encounter Visit Diagnoses Diagnosis Anxiety Anxiety state, unspecified Chronic pain of left knee documented in this encounter Additional Health Concerns Assessment Noted Time PHQ-9 Depression Total Score: 0 12/06/19 24 10:09 AM EDT documented as of this encounter Care Teams Wireless Sales Expert Relationship Specialty Start Date End Date Rolf Gamble MD [address] [place] [address] PCP - General Family Medicine 10/21/17 Martine Broussard PharmD [address] [place] [address] Pharmacist Internal Medicine 04/20/23 documented as of this encounter
--- OUTSIDE RECORDS SUMMARY | 2024-06-12 15:31 | XMS_ITS | Encounter Summary ---
Author Organization [employer] Address [address] [facility] 7t [place] [address] Care Team Providers Care Apartment Locator Name Role Phone Name, Rolf PARKS Primary Care Provider [phone] Martine Broussard PharmD Unavailable [phone] Reason for Visit * Reason Comments Med Refill Encounter Details Date Type Department Care Team ([facility] st Contact Info) Description 12/06/[address] [facility] [address] [place], [place] [phone] Name, MD Rolf [address] [place] [address] Anxiety; Chronic pain of left knee Social [...] 10:00 AM EDT Telemedicine [facility] [address] [place] [address] Karla Lewis RN 08/18/2024 11:15 AM EDT Office Visit [facility] [address] [place] [address] Rolf Gamble MD [address] [place] [address] documented as of this encounter Goals Goal [...] documented as of this encounter Care Teams Apartment Locator Relationship Specialty Start Date End Date Rolf Gamble MD [address] [place] [address] PCP - General Family Medicine 10/21/17 Martine Broussard PharmD [address] [place] [address] Pharmacist Internal Medicine 04/20/23 documented as of this encounter
--- OUTSIDE RECORDS SUMMARY | 2024-06-12 15:31 | XMS_ITS | Encounter Summary ---
Author Organization [employer] Address 75 [facility] 7 [place] [address] Care Team Providers Care Sales Data Analyst Name Role Phone Name, Rolf PARKS Primary Care Provider [phone] Martine Broussard PharmD Unavailable [phone] Reason for Visit * Reason Comments Med Refill Encounter Details Date Type Department Care Team ([facility] st Contact Info) Description 05/23/2024 Refill [facility] 230 [place], [place] [phone] Felicia Law NP [address] [place] [address] Anxiety Social History Tobacco Use Types Packs/Day [...] 08/18/2024 10:00 AM EDT Telemedicine [facility] [address] [place] [address] Karla Lewis RN 08/18/2024 11:15 AM EDT Office Visit [facility] [address] [place] [phone] Name, MD Rolf [address] [place] [address] documented as of this encounter Goals Goal [...] as of this encounter Care Teams Sales Data Analyst Relationship Specialty Start Date End Date Name, MD Rolf [address] [place] [address] PCP - General Family Medicine 10/21/17 Martine Broussard, GarrettD [address] [place] [address] Pharmacist Internal Medicine 04/20/23 documented as of this encounter
--- OUTSIDE RECORDS SUMMARY | 2024-06-12 15:31 | XMS_ITS | Encounter Summary ---
Author Organization [employer] Address 75 [facility] 7t [place] [address] Care Team Providers Care Service Writer Advisor Name Role Phone Name, Rolf PARKS Primary Care Provider [phone] Martine Broussard PharmD Unavailable [phone] Reason for Visit * Reason Comments Med Refill Encounter Details Date Type Department Care Team ([facility] st Contact Info) Description 11/02/2023 Refill [facility] [address] [place], [place] [phone] Name, MD Rolf [address] [place] [address] Anxiety; Chronic pain of left knee Social [...] Telemedicine [facility] [address] [place] [address] Karla Lewis RN 08/18/2024 11:15 AM EDT Office Visit [facility] [address] [place] [address] Name, MD Rolf [address] [place] [address] documented as of this encounter Goals Goal [...] documented as of this encounter Care Teams Service Writer Advisor Relationship Specialty Start Date End Date NameRolf MD [address] [place] [address] PCP - General Family Medicine 10/21/17 Puia, Martine, PharmD [address] [place] [address] Pharmacist Internal Medicine 04/20/23 documented as of this encounter
--- OUTSIDE RECORDS SUMMARY | 2024-06-12 15:31 | XMS_ITS | Encounter Summary ---
Author Organization [employer] Address 75 [facility] 7t [place] [address] Care Team Providers Care Heel Cutter Name Role Phone Name, Rolf PARKS Primary Care Provider [phone] Martine Broussard PharmD Unavailable [phone] Reason for Visit * Reason Comments Med Refill Encounter Details Date Type Department Care Team ([facility] st Contact Info) Description 11/26/2023 Refill [facility] MEDICINE 230 [place], [place] [phone] Vivian Barajas, ANP 230 [place] [address] Diabetes mellitus type 2 with neurological manifestations [...] 08/18/2024 10:00 AM EDT Telemedicine [facility] MEDICINE [address] [place] [address] Karla Lewis RN 08/18/2024 11:15 AM EDT Office Visit [facility] MED[facility]INE [address] [place] [address] Name, MD Rolf [address] [place] [address] documented as of this encounter Goals Goal [...] documented as of this encounter Care Teams Heel Cutter Relationship Specialty Start Date End Date Rolf Gamble MD [address] [place] [address] PCP - General Family Medicine 10/21/17 Lance Broussardyssa, PharmD [address] [place] [address] Pharmacist Internal Medicine 04/20/23 documented as of this encounter
--- OUTSIDE RECORDS SUMMARY | 2024-06-12 15:31 | XMS_ITS | Encounter Summary ---
Author Organization [employer] Address 75 [facility] 7t [place] [address] Care Team Providers Care Termite Helper Name Role Phone Name, Rolf PARKS Primary Care Provider [phone] Martine Broussard PharmD Unavailable [phone] Reason for Visit * Reason Onset Date Comments Med Refill 11/24/2023 Encounter Details Date Type Department Care Team (Late st Contact Info) Description 11/24/2023 Telephone [facility] MEDICINE 230 [place], [place] [phone] Name, MD Rolf 230 [place], [place] [phone] Med Refill Social History Tobacco Use Types [...] Telephone Encounter - Mary Peres LPN - 11/24/2023 10:44 AM EDT Medication was sent to [id number] on 10/21/23 #30 with 1 refill. * Telephone Encounter - Nela Whalen - 11/24/2023 10:42 AM EDT TC from pt requesting medication refill. Medications needing refill : traZODone (Desyrel) 50 MG tablet To be sent to: [id number] [place] [address] SHAUN [facility]CDONOUGH [facility] documented in this encounter Plan of Treatment Upcoming Encounters Date Type Department Care Team (Late st Contact Info) Description 08/18/2024 10:00 AM EDT Telemedicine [facility] MEDICINE [address] [place] [address] Karla Lewis RN 08/18/2024 11:15 AM EDT Office Visit [facility] MEDICINE [address] [place] [address] Name, MD Rolf [address] [place] [address] documented as of this encounter Goals Goal Patient Goal Type Associated Problems Recent Progress Patient-Stated? Author Hemoglobin A1c < 7 Result Component 6.6( 5 11:14 AM EST) No Martine Broussard PharmLexi Record your blood sugar as directed Result Component No Martine Broussard PharmD documented as of this encounter Visit Diagnoses Not on filedocumented in this encounter Additional Health Concerns Assessment Noted Time PHQ-9 Depression Total Score: 14 023 1:07 PM EDT documented as of this encounter Care Teams Termite Helper Relationship Specialty Start Date End Date Name, MD Rolf 230 [place] [address] PCP - General Family Medicine 10/21/17 Martine Broussard PharmD [address] [place] [address] Pharmacist Internal Medicine 04/20/23 documented as of this encounter
--- OUTSIDE RECORDS SUMMARY | 2024-06-12 15:31 | XMS_ITS | Encounter Summary ---
Author Organization [employer] Address 75 [facility] 7t [place] [address] Care Team Providers Care Elementary School Science Teacher Name Role Phone Name, Rolf PARKS Primary Care Provider [phone] Martine Broussard PharmD Unavailable [phone] Reason for Visit * Reason Comments Med Refill Encounter Details Date Type Department Care Team (Late st Contact Info) Description 01/31/2024 Refill [facility] [address] [place], [place] [phone] Name, MD Rolf 230 [place] [address] Chronic pain of left knee; Anxiety; Osteoarthritis [...] Info) Description 08/18/2024 10:00 AM EDT Telemedicine [address] [address] Karla Lewis RN 08/18/2024 11:15 AM EDT Office Visit [facility] MEDICINE [address] [place] [address] Name, MD Rolf [address] [place] [address] documented as of this encounter Goals Goal Patient Goal Type Associated Problems Recent Progress Patient-Stated? Author Hemoglobin A1c < 7 Result Component 6.6( 11:14 AM EST) No Martine Broussard, PharmD Record your blood sugar as directed Result Component No Martine Broussard, PharmD documented as of this encounter Visit Diagnoses Diagnosis Chronic pain of left knee Anxiety Anxiety state, unspecified Osteoarthritis of knee, unspecified laterality, unspecified osteoarthritis type Iron deficiency anemia, unspecified iron deficiency anemia type documented in this encounter Additional Health Concerns Assessment Noted Time PHQ-9 Depression Total Score: 0 12/06/19 24 10:09 AM EDT documented as of this encounter Care Teams Elementary [employer] Science Teacher Relationship Specialty Start Date End Date Name, MD Rolf 230 [place] [address] PCP - General Family Medicine 10/21/17 Martine Broussard PharmD 230 [place] [address] Pharmacist Internal Medicine 04/20/23 documented as of this encounter
--- OUTSIDE RECORDS SUMMARY | 2024-06-12 15:31 | XMS_ITS | Encounter Summary ---
Author Organization [employer] Address 75 [facility] 7t [place] [address] Care Team Providers Care Yard Spotter Name Role Phone Name, Rolf PARKS Primary Care Provider [phone] Martine Broussard PharmD Unavailable [phone] Reason for Visit * Reason Comments Med Refill Encounter Details Date Type Department Care Team ([facility] st Contact Info) Description 11/08/2023 Refill [facility] MEDICINE 230 [place], [place] [phone] Name, MD Rolf 230 [place] [address] Anxiety; Chronic pain of left knee Social [...] 08/18/2024 10:00 AM EDT Telemedicine [facility] MEDICINE [address] [place] [address] Karla Lewis RN 08/18/2024 11:15 AM EDT Office Visit [facility] [address] [place] [address] Name, MD Rolf [address] [place] [address] documented as of this encounter Goals Goal [...] documented as of this encounter Care Teams Yard Spotter Relationship Specialty Start Date End Date NameRolf MD [address] [place] [address] PCP - General Family Medicine 10/21/17 Puia, Martine, PharmD [address] [place] [address] Pharmacist Internal Medicine 04/20/23 documented as of this encounter
--- OUTSIDE RECORDS SUMMARY | 2024-06-12 15:31 | XMS_ITS | Encounter Summary ---
Author Organization [employer] Address 75 [facility] 7t [place] [address] Care Team Providers Care Tenter Frame Back Tender Name Role Phone Name, Rolf PARKS Primary Care Provider [phone] Martine Broussard PharmD Unavailable [phone] Reason for Visit * Reason Comments Med Refill Encounter Details Date Type Department Care Team (Late st Contact Info) Description 01/18/2024 Refill [facility] MEDICINE 230 [place], [place] [phone] Name, MD Rolf 230 [place] [address] Iron deficiency anemia, unspecified iron deficiency anemia [...] Telemedicine [facility] MEDICINE [address] [place] [address] Karla Lewis RN 08/18/2024 11:15 AM EDT Office Visit [facility] MEDICINE [address] [place] [address] Name, MD Rolf [address] [place] [address] documented as of this encounter Goals Goal [...] documented as of this encounter Care Teams Tenter Frame Back Tender Relationship Specialty Start Date End Date Name, MD Rolf 230 [place] [address] PCP - General Family Medicine 10/21/17 Martine Broussard PharmD 230 [place] [address] Pharmacist Internal Medicine 04/20/23 documented as of this encounter
--- OUTSIDE RECORDS SUMMARY | 2024-06-12 15:31 | XMS_ITS | Encounter Summary ---
Author Organization [employer] Address 75 [facility] 7 [place] [address] Care Team Providers Care Supervisor Litharge Name Role Phone Name, Rolf PARKS Primary Care Provider Puia, Martine PharmD Unavailable [phone] Puia, Martine PharmD Unavailable Reason for Visit * Reason Onset Date Comments Med Refill 03/23/2023 Encounter Details Date Type Department Care Team ([facility] st Contact Info) Description 03/23/2023 Telephone [facility] MEDICINE 230 [place], [place] [phone] Name, MD Rolf 230 [place], [place] [phone] Med Refill Social History Tobacco Use Types [...] Telephone Encounter - Mary Peres LPN - 03/23/2023 2:18 PM EST Medication was sent to [facility] on 12/07/22 with 11 refills. * Telephone Encounter - Nela Whalen - 03/23/2023 2:15 PM EST Tc from pt requesting med refill on; dulaglutide (Trulicity) 3 MG/0.5ML solution pen-injector [facility] [place] [address] [facility] documented in this encounter Plan of Treatment Upcoming Encounters Date Type Department Care Team (Late st Contact Info) Description 08/18/2024 10:00 AM EDT Telemedicine [facility] MEDICINE [address] [place] [address] Karla Lewis RN 08/18/2024 11:15 AM EDT Office Visit [facility] MEDICINE [address] [place] [address] Name, MD Rolf [address] [place] [address] documented as of this encounter Visit Diagnoses Not on filedocumented in this encounter Additional Health Concerns Assessment Noted Time PHQ-9 Depression Total Score: 14 023 1:07 PM EDT documented as of this encounter Care Teams Supervisor Litharge Relationship Specialty Start Date End Date Name, MD Rolf [address] [place] [address] PCP - General Family Medicine 10/21/17 Martine Broussard PharmD [address] [place] [address] Pharmacist Internal Medicine 04/20/23 Martine Broussard PharmD [address] [place] [address] Pharmacist Internal Medicine 04/20/23 08/11/23 documented as of this encounter
--- OUTSIDE RECORDS SUMMARY | 2024-06-12 15:31 | XMS_ITS | Encounter Summary ---
Author Organization [employer] Address 75 [facility] 7t [place] [address] Care Team Providers Care Charge Attendant Name Role Phone Name, Rolf PARKS Primary Care Provider [phone] Puia, Martine PharmD Unavailable Puia, Martine PharmD Unavailable Reason for Visit * Reason Onset Date Comments Medication Question 01/01/2023 Encounter Details Date Type Department Care Team (Late st Contact Info) Description 01/01/2023 Telephone [facility] MEDICINE 230 [place], [place] [phone] Name, MD Rolf 230 [place], [place] [phone] Medication Question Social History Tobacco Use Types [...] encounter Miscellaneous Notes * Telephone Encounter - Leanna Perez RN - 01/05/2023 1:02 PM EDT Return T/C through [employer] for below message. Pt. Was informed that Since he is not on insulin insurance will pay for only once a day. Pt. Verbally agreed and understood. Advised to give call to [facility] if any question or concerns. * Telephone Encounter - Nola Willard - 01/05/2023 11:10 AM EDT Tc from patients daughter requesting the status, regarding message below. Daughter states PCP changed his script for 3 times a day. Call Person doesn't see script for freestyle test strips on [address] nor [address]. * Telephone Encounter - Fracisco Henderson - 01/01/2023 10:58 AM EDT Tc from pt requesting a new script for freestyle test strips , states they check sugars 3 times a day and current script says once a day. Please contact at [phone] documented in this encounter Plan of Treatment Upcoming Encounters Date Type Department Care Team (Late st Contact Info) Description 08/18/2024 10:00 AM EDT Telemedicine [facility] MEDICINE [address] [place] [address] Karla Lewis RN 08/18/2024 11:15 AM EDT Office Visit [facility] MEDICINE [address] [place] [address] Name, MD Rolf [address] [place] [address] documented as of this encounter Goals Goal [...] documented as of this encounter Care Teams Charge Attendant Relationship Specialty Start Date End Date Rolf Gamble MD [address] [place] [address] PCP - General Family Medicine 10/21/17 Martine Broussard, PharmD [address] [place] [address] Pharmacist Internal Medicine 04/20/23 Martine Broussard, PharmD [address] [place] [address] Pharmacist Internal Medicine 04/20/23 08/11/23 documented as of this encounter
--- OUTSIDE RECORDS SUMMARY | 2024-06-12 15:31 | XMS_ITS | Encounter Summary ---
Author Organization [employer] Address 75 [facility] 7 [place] [address] Care Team Providers Care Triple Air Valve Tester Name Role Phone Name, Rolf PARKS Primary Care Provider [phone] Martine Broussard PharmD Unavailable [phone] Reason for Visit * Reason Comments Med Refill Encounter Details Date Type Department Care Team (Late st Contact Info) Description 01/14/2024 Refill [facility] MEDICINE 230 [place], [place] [phone] Vivian Barajas, ANP 230 [place] [address] Diabetes mellitus type 2 with neurological manifestations [...] Description 08/18/2024 10:00 AM EDT Telemedicine [facility] MEDICINE [address] [place] [address] Karla Lewis RN 08/18/2024 11:15 AM EDT Office Visit [facility] MEDICINE [address] [place] [address] Name, MD Rolf [address] [place] [address] documented as of this encounter Goals Goal [...] documented as of this encounter Care Teams Triple Air Valve Tester Relationship Specialty Start Date End Date Name, MD Rolf 230 [place] [address] PCP - General Family Medicine 10/21/17 Martine Broussard PharmD 230 [place] [address] Pharmacist Internal Medicine 04/20/23 documented as of this encounter
--- OUTSIDE RECORDS SUMMARY | 2024-06-12 15:31 | XMS_ITS | Encounter Summary ---
Author Organization [employer] Address 75 [facility] 7t [place] [address] Care Team Providers Care Sales Correspondent Name Role Phone Name, Rolf PARKS Primary Care Provider Martine Broussard PharmD Unavailable [phone] Reason for Visit * Reason Comments Med Refill Encounter Details Date Type Department Care Team (Late st Contact Info) Description 02/01/2024 Refill [facility] MEDICINE 230 [place], [place] [phone] Name, MD Rolf [address] [place] [address] Osteoarthritis of knee, unspecified laterality, unspecified osteoarthritis type; Chronic pain of left knee; Anxiety; Iron deficiency anemia, unspecified iron deficiency anemia [...] Info) Description 08/18/2024 10:00 AM EDT Telemedicine [facility] MEDICINE [address] [place] [address] Karla Lewis RN 08/18/2024 11:15 AM EDT Office Visit [facility] MEDICINE [address] [place] [address] Name, MD Rolf [address] [place] [address] documented as of this encounter Goals Goal Patient Goal Type Associated Problems Recent Progress Patient-Stated? Author Hemoglobin A1c < 7 Result Component 6.6( 11:14 AM EST) No Martine Broussard, PharmD Record your blood sugar as directed Result Component No Martine Broussard, PharmD documented as of this encounter Visit Diagnoses Diagnosis Osteoarthritis of knee, unspecified laterality, unspecified osteoarthritis type Chronic pain of left knee Anxiety Anxiety state, unspecified Iron deficiency anemia, unspecified iron deficiency anemia type documented in this encounter Additional Health Concerns Assessment Noted Time PHQ-9 Depression Total Score: 0 12/06/19 24 10:09 AM EDT documented as of this encounter Care Teams Sales Correspondent Relationship Specialty Start Date End Date Name, MD Rolf 230 [place] [address] PCP - General Family Medicine 10/21/17 Martine Broussard PharmD 230 [place] [address] Pharmacist Internal Medicine 04/20/23 documented as of this encounter
--- OUTSIDE RECORDS SUMMARY | 2024-06-12 15:31 | XMS_ITS | Encounter Summary ---
Author Organization [employer] Address 75 [facility] 7 [place] [address] Care Team Providers Care Road Freight Brake Coupler Name Role Phone Name, Rolf PARKS Primary Care Provider [phone] Martine Broussard PharmD Unavailable [phone] Reason for Visit * Reason Comments Med Refill Encounter Details Date Type Department Care Team (Late st Contact Info) Description 2023 Refill [facility] MEDICINE 230 [place], [place] [phone] Vivian Barajas, ANP 230 [place] [address] Diabetes mellitus type 2 with neurological manifestations [...] 08/18/2024 10:00 AM EDT Telemedicine [facility] MEDICINE [address] [place] [address] Karla Lewis RN 08/18/2024 11:15 AM EDT Office Visit [facility] MEDICINE [address] [place] [address] Rolf Gamble MD [address] [place] [address] documented as of this encounter Goals Goal [...] documented as of this encounter Care Teams Road Freight Brake Coupler Relationship Specialty Start Date End Date Rolf Gamble MD 230 [place] [address] PCP - General Family Medicine 10/21/17 Martine Broussard PharmD [address] [place] [address] Pharmacist Internal Medicine 04/20/23 documented as of this encounter
--- OUTSIDE RECORDS SUMMARY | 2024-06-12 15:31 | XMS_ITS | Encounter Summary ---
Author Organization [employer] Address 75 [facility] 7t [place] [address] Care Team Providers Care Folder Machine Adjuster Name Role Phone Name, Rolf PARKS Primary Care Provider [phone] Martine Broussard PharmD Unavailable [phone] Reason for Visit * Reason Onset Date Comments Nurse Triage 11/16/2023 Encounter Details Date Type Department Care Team ([facility] st Contact Info) Description 11/16/2023 Telephone [facility] MEDICINE 230 [place], [place] [phone] Name, MD Rolf 230 [place], [place] [phone] Nurse Triage Social History Tobacco Use Types Packs/Day Years [...] encounter Miscellaneous Notes * Telephone Encounter - Shilpi Valdez RN - 11/16/2023 11:32 AM EDT Call returned to [facility] to triage below. Spoke with daughter Annetta who reports having tremors of bilateral hands and on lower legs. Per daughter pt has had episodes of losing balance andfalls. Pt had a fall last night. No head injury. Back pain. Daughter advised of disposition, offered [facility] today. Daughter declines only wants pt seen by PCP. Advised nothing sooner than already booked follow up in December. Per daughter was told Dr. Gamble would be at [facility] on 11/23. Advised unable to guarantee that PCP will be provider to see patient but will send message to PCP and Team as FYI and to follow up sooner PRN. Multiple (2) protocols were used on this call. Disposition for Call: See in Office or Video Visit within 2 Weeks Protocol Used: Falls and Falling (Adult) Protocol-Based Disposition: See in Office or Video Visit within 2 Weeks Positive Triage Question: * Falling (two or more falls) and in past year * All higher-acuity triage questions were negative Protocol Used: Muscle Jerks - Tics - Shudders (Pediatric) Protocol-Based Disposition: See in Office or Video Visit within 2 Weeks Video visit offer not recorded Positive Triage Question: * Muscle jerks during sleep interfere with good sleep * All higher-acuity triage questions were negative Care Advice Discussed: * Reasons To Call Back - You have other questions or concerns * Telephone Encounter - Kisha You - 11/16/2023 10:40 AM EDT Symptom: tremors ( leg and hand) Outcome: Schedule a same-day appointment or talk to a nurse or provider today Reason: Caller denied all higher acuity questions The caller accepted this outcome documented in this encounter Plan of Treatment Upcoming Encounters Date Type Department Care Team (Late st Contact Info) Description 08/18/2024 10:00 AM EDT Telemedicine [address] [address] Karla Lewis RN 08/18/2024 11:15 AM EDT Office Visit [address] [address] Name, MD Rolf [address] [place] [address] documented as of this encounter Goals Goal [...] documented as of this encounter Care Teams Folder Machine Adjuster Relationship Specialty Start Date End Date NameRolf MD [address] [place] [address] PCP - General Family Medicine 10/21/17 Puia, Martine, PharmD [address] [place] [address] Pharmacist Internal Medicine 04/20/23 documented as of this encounter
--- OUTSIDE RECORDS SUMMARY | 2024-06-12 15:31 | XMS_ITS | Encounter Summary ---
Author Organization [employer] Address 75 [facility] 7t [place] [address] Care Team Providers Care Capacitor Assembler Name Role Phone Name, Rolf PARKS Primary Care Provider [phone] Martine Broussard PharmD Unavailable [phone] Reason for Visit * Reason Comments Med Refill Encounter Details Date Type Department Care Team (Late st Contact Info) Description 01/28/2024 Refill [facility] MEDICINE 230 [place], [place] [phone] Name, MD Rolf 230 [place] [address] Iron deficiency anemia, unspecified iron deficiency anemia [...] 08/18/2024 10:00 AM EDT Telemedicine [facility] MEDICINE [address] [place] [address] Karla Lewis RN 08/18/2024 11:15 AM EDT Office Visit [facility] MEDICINE [address] [place] [address] Name, MD Rolf [address] [place] [address] documented as of this encounter Goals Goal [...] documented as of this encounter Care Teams Capacitor Assembler Relationship Specialty Start Date End Date Name, MD Rolf 230 [place] [address] PCP - General Family Medicine 10/21/17 Martine Broussard PharmD 230 [place] [address] Pharmacist Internal Medicine 04/20/23 documented as of this encounter
--- OUTSIDE RECORDS SUMMARY | 2024-06-12 15:31 | XMS_ITS | Data Portability ---
Author Organization [employer] Address [address] [place] [address] Care Team Providers Care Executive Admin Name Role Phone HIM CCA OTHER [facility] OTHER Assessment Encounter Date Assessment Date Assessment LastModified by Organization Details LastModified Time 02/15/2024 02/15/2024 I have reviewed and agree with the assessment and plan as documented by the data miner. I provided real time medical direction for this encounter and was immediately available to provide additional phone based assistance as needed. History as noted by data miner. Pt with history of COPD, not on home O2. Pt has had a non productive cough x1 week. No CP, SOB, fevers or chills. No nasal congestion, sore throat or rhinorrhea. Taking Mucinex and using inhalers with some relief. Pt's daughter recently diagnosed with Covid-19 so they wanted pt tested. On exam, pt alert, no distress. Vitals ok, lungs clear with good air movement. Covid and Flu rapid tests both negative. Impression: Pt with probable viral bronchitis. Pt with 1 week of a dry cough, with no associated SOB, CP, fevers or chills. Also denies any other URI symptoms. Pt's daughter recently diagnosed with Covid. On exam, pt looks well with unremarkable vitals and clear lungs. Both covid and flu rapid tests negative. Pt already taking Mucinex and using his inhalers with some relief of his cough. We discuss with the pt and daughter prescribing benzonatate for the cough as well as the fact that there may be a copay for them, but they would like this prescribed, so this is sent to their pharmacy. They are told to f/u with the pt's primary care team if his symptoms do not improve after 1-2 weeks and to seek medical attention right away with any worsening or new symptoms, which are reviewed with them. [email or web address] Not available 02/15/2024 10:50:41 Plan of Treatment Reminders Order Date Submit Date Provider Last Modified By Organization Details Last Modified Time Details Appointments None recorded. Lab rapid SARS CoV 2 Ag, QL IA, respiratory specimen 2023 [facility], [address] [place] [address], [id number], 10:42:40 rapid flu (A+B) 2023 [facility], [address] [place] [address], [id number], 10:42:40 Referral None recorded. Procedures None recorded. Surgeries None recorded. Imaging None recorded. Medication Orders benzonatate 200 mg capsule 2023 [id number], [address] [place], [place], [id number], 10:47:21 Patient TargetsNo targets recorded. Patient InstructionsNo instructions recorded. Reason for Referral None Reported. Results Created Date Observation Date Name Description Value Unit Range Abnormal Flag Note LastModifiedBy Organization Detail LastModifiedTime 02/15/2002/15/2024 rapid flu (A+B) Flu negati ve Not Available [facility] ed [address] [place] [address], [id number], 02/15/2024 10:42:15 02/15/2002/15/2024 rapid SARS CoV 2 Ag, QL IA, respi rator y speci men rapid SARS CoV 2 Ag, QL IA, respiratory specimen negati ve Not Available [facility] ed [address] [place] [address], [id number], 02/15/2024 10:42:12 Result Notes None recorded. Medical Equipment None Reported. Medications Name Sig Start Date Stop Date Status Note LastModified by Organization Details LastModified Time Prescription - Renewal active Not Available Not Available No t Available medbox status USE DIRECTED active Not Available Not Available No t Available atorvastatin 40 mg tablet TAKE 1 TABLET BY MOUTH EVERY MORNING active Not Available Not Available No t Available albuterol sulfate 2.5 mg/3 mL (0.083 %) solution for nebulization INHALE 1 AMPULE USING A NEBULIZER EVERY 6 HOURS NEEDED FOR WHEEZING active Not Available Not Available No t Available trazodone 50 mg tablet TAKE 1 TABLET BY MOUTH AT BEDTIME active Not Available Not Available No t Available azithromycin 250 mg tablet TAKE 2 TABLETS BY MOUTH ON DAY 1, THEN TAKE 1 TABLET DAILY ON DAYS 2-5 active Not Available Not Available No t Available benzonatate 200 mg capsule TAKE 1 CAPSULE BY MOUTH THREE TIMES DAILY FOR 10 DAYS NEEDED FOR COUGH active Not Available Not Available No t Available prednisone 20 mg tablet TAKE 2 TABLETS BY MOUTH EVERY DAY IN THE MORNING FOR 5 DAYS active Not Available Not Available No t Available tramadol 50 mg tablet TAKE 1 TABLET BY MOUTH TWICE DAILY active Not Available Not Available No t Available acetaminophe n 500 mg tablet active Not Available Not Available Not Available Screamin Daily DealsToStunn Ultra Test strips USE DIRECTED TO TEST BLOOD SUGAR ONCE DAILY active Not Available Not Available No t Available benzonatate 100 mg capsule active Not Available Not Available Not Available metformin 1,000 mg tablet TAKE 1 TABLET BY MOUTH TWICE DAILY IN THE MORNING AND IN THE EVENING WITH MEALS active Not Available Not Available N ot Available clonazepam 2 mg tablet TAKE 1 TABLET BY MOUTH EVERY DAY AT BEDTIME NEEDED active Not Available Not Available No t Available fluticasone 500 mcg-salmeter ol 50 mcg/dose blistr powdr for inhalation active Not Available Not Available N ot Available gabapentin 300 mg capsule TAKE 1 CAPSULE BY MOUTH TWICE DAILY active Not Available Not Available No t Available omeprazole 20 mg capsule,teresa yed release TAKE 1 CAPSULE BY MOUTH EVERY MORNING (30 TO 60 MINUTES BEFORE A MEAL) active Not Available Not Available No t Available mirtazapine 15 mg tablet TAKE 1 TABLET BY MOUTH EVERY NIGHT active Not Available Not Available No t Available Ventolin HFA 90 mcg/actuatio n aerosol inhaler active Not Available Not Available Not Available escitalopram 10 mg tablet active Not Available Not Available Not Available FeroSul 325 mg (65 mg iron) tablet TAKE 1 TABLET BY MOUTH EVERY OTHER DAY IN THE MORNING active Not Available Not Available No t Available diclofenac 1 % topical gel active Not Available Not Available Not Available Trulicity 1.5 mg/0.5 mL subcutaneous pen injector active Not Available Not Available Not Available Incruse Ellipta 62.5 mcg/actuatio n powder for inhalation INHALE 1 PUFF BY MOUTH EVERY DAY AT THE SAME TIME EVERY MORNING active Not Available Not Available No t Available naloxone 4 mg/actuation nasal spray active Not Available Not Available Not Available Compact Space Chamber USE WITH INHALER DIRECTED active Not Available Not Available No t Available OneTouch Delica Plus Lancet 33 gauge USE DIRECTED TO TEST BLOOD SUGAR EVERY DAY active Not Available Not Available No t Available Trulicity 3 mg/0.5 mL subcutaneous pen injector INJECT 3 MG SUBCUTANEOU S ONE DAY A WEEK active Not Available Not Available No t Available Trulicity 4.5 mg/0.5 mL subcutaneous pen injector INJECT ONE PEN (= 4.5MG) SUBCUTANEOU SLY ONCE A WEEK DIRECTED active Not Available Not Available No t Available Vitals Date Recorded Body temperature Respiratory rate Heart rate Oxygen saturation Oxygen saturation in Arterial blood by Pulse oximetry Systolic blood pressure Diastolic blood pressure Provider Name and Address Organization Details Last Updated DateTime 4 96.7 [degF] 14 /min 98 /min 94 % 94 % 148 mm[Hg] 86 mm[Hg] Not Available [facility] - production 4 10:38:51 Social History None recorded. Functional Status None recorded. Mental Status None recorded. Family History Nothing Reported. Medical History No medical history recorded. Past Encounters Encounter ID Performer Location Encounter Start Date Encounter Closed Date Diagnosis/Indication Diagnosis SNOMED-CT Code Diagnosis ICD10 Code Diagnosis Note [id number] Veto Valladares MD Main - [facility] [address] [place] [phone] 02/15/2024 10:38:48 02/15/2024 12:04:39 Cough 61473638 R05.9 Health Concerns Section Related Observation LastModified by Organization Detai ls LastModified Time None Recorded Concern Status LastModified by Organization Details LastModified Time None Recorded Advance Directives Directive None Recorded Payers Encounter Date Sequence Insurance Name Policy Number Policy Daniel Covered Member ID Daniel Member ID Guarantor Name 02/15/2024 1 [facility] - DOS ON OR AFTER 2022 - DUAL ELIGIBLE - USP OPTIONS AND ONE CARE (MEDICARE REPLACEMENT/ADV ANTAGE - HMO) Hong Antoine [id number] Hong Antoine Notes Date Note Type Note Provider Name and Address Organization Details Recorded Time 02/15/2024 text/html This was a supervised home visit with data miner Sameul Leonila. HPI: PMHx: EmphysemaCall returned to [facility] to triage below. Spoke with daughter who is on HIPAA. Daughter reports pt having cough x 1 week. Per daughter chest congestion. Per daughter no fever. Denies any ST, HUNT , ear pain or nasal congestion. Per daughter pt has emphysema. Pt has not had COVID-19 testing. Daughter sick with COVID x 4 days. Unable to bring pt in for exam. Agrees to [facility] referral. .................... .................... .................... .................... .................... .................... .................... . CRC Nurse Triage Notes (Josselyn Newton): Chief Complaints: Cough PMH: Diabetes, Hypertension Comments: cRC RN DID NOT NEED FURTHER INFO Wood Finisher Apprentice Organization Information for Samuel Keen JESUSCarlabj Legal Name: [facility] Transportation Address: [address] [place] [address], Scrum Master: Reddy Beckford MD CLIA No.: [id number] [employer] Fin[employer] POC Test Results from Samuel Keen JESUS Rapid COVID antigen (10:37:06) COVID: - Rapid influenza antigen (10:37:07) Flu: - .................... .................... .................... .................... .................... .................... .................... . Wood Finisher Apprentice Note From Samuel Keen: Pt with hx of COPD reports one week of dry cough. Pt denies CP, SOB, GUERRERO, sinus congestion, f/n/v/d. Using Mucinex with some relief. Pt concerned because daughter recently had covid. NKDA. Pt is alert, NAD. VSS. Afebrile. Non focal neuro exam. Normal gait. Unremarkable ENT exam. No sinus tenderness. Lungs CTA. Benign ABD exam. No LE edema. Rapid covid and flu negative. Pt educated on benzonatate. Pt advised to continue daily meds as prescribed, continue mucinex and f/u with PCP if sx persist. Red flags such as high fever, CP, SOB are reviewed. .................... .................... .................... .................... .................... .................... .................... . Disposition: Fulfilled Veto Valladares MD [address] [facility],[address], [place], [address], [employer] 02/15/2024 11:17:19
--- OUTSIDE RECORDS SUMMARY | 2024-06-12 15:31 | XMS_ITS | Encounter Summary ---
Author Organization [employer] Address [address] [facility] 7t [place] [address] Care Team Providers Care Library Helper Name Role Phone Name, Rolf PARKS Primary Care Provider [phone] Martine Broussard PharmD Unavailable [phone] Reason for Visit * Reason Onset Date Comments Paperwork/Forms 11/09/2023 Encounter Details Date Type Department Care Team (Late st Contact Info) Description 11/09/2023 Telephone [facility] [address] [place], [place] [phone] Name, MD Rolf [address] [place] [address] Paperwork/Forms Social History Tobacco Use Types Packs/Day Years [...] encounter Miscellaneous Notes * Telephone Encounter - Brown Giraldo - 11/09/2023 9:20 AM EDT Tc from [place] [facility] requesting the status of the PCP order Form as well as a copy of the patients physical documented in this encounter Plan of Treatment Upcoming Encounters Date Type Department Care Team (Late st Contact Info) Description 08/18/2024 10:00 AM EDT Telemedicine [facility] [address] [place] [phone] Karla Lewis RN 08/18/2024 11:15 AM EDT Office Visit [facility] [address] [place] [phone] Name, MD Rolf [address] [place] [address] documented as of this encounter Goals Goal [...] documented as of this encounter Care Teams Library Helper Relationship Specialty Start Date End Date Rolf Gamble MD [address] [place] [address] PCP - General Family Medicine 10/21/17 Martine Broussard, Paulo [address] [place] [address] Pharmacist Internal Medicine 04/20/23 documented as of this encounter
--- OUTSIDE RECORDS SUMMARY | 2024-06-12 15:31 | XMS_ITS | Encounter Summary ---
Author Organization [employer] Address [address] [facility] 7 [place] [address] Care Team Providers Care Geophysics Teacher Name Role Phone Name, Rolf PARKS Primary Care Provider [phone] Martine Broussard PharmD Unavailable [phone] Reason for Visit * Reason Comments Med Refill Encounter Details Date Type Department Care Team (Late st Contact Info) Description 01/11/2024 Refill [facility] [address] [place], [place] [phone] Vivian Barajas, ANP [address] [place] [address] Diabetes mellitus type 2 with neurological manifestations [...] Info) Description 08/18/2024 10:00 AM EDT Telemedicine [facility] [address] [place] [phone] Karla Lewis RN 08/18/2024 11:15 AM EDT Office Visit [facility] [address] [place] [phone] Name, MD Rolf [address] [place] [address] documented as of this encounter Goals Goal [...] documented as of this encounter Care Teams Geophysics Teacher Relationship Specialty Start Date End Date Name, MD Rolf [address] [place] [address] PCP - General Family Medicine 10/21/17 Martine Broussard PharmD [address] [place] [address] Pharmacist Internal Medicine 04/20/23 documented as of this encounter
--- OUTSIDE RECORDS SUMMARY | 2024-06-12 15:31 | XMS_ITS | Encounter Summary ---
Author Organization [employer] Address [address] [place] [address] 7 [place] [address] Care Team Providers Care Gas And Oil Checker Name Role Phone Name, Rolf PARKS Primary Care Provider [phone] Martine Broussard PharmD Unavailable Reason for Visit * Reason Comments Med Refill Encounter Details Date Type Department Care Team (Late st Contact Info) Description 12/16/2023 Refill [facility] [address] [place], [place] [phone] Name, MD Rolf [address] [place] [address] Osteoarthritis of knee, unspecified laterality, unspecified osteoarthritis type; Chronic pain of left knee; Anxiety Social History Tobacco Use Types Packs/Day [...] Description 08/18/2024 10:00 AM EDT Telemedicine [facility] [address] [place] [phone] Karla Lewis RN 08/18/2024 11:15 AM EDT Office Visit [facility] [address] [place] [phone] Name, MD Rolf [address] [place] [address] documented as of this encounter Goals Goal [...] of left knee Anxiety Anxiety state, unspecified documented in this encounter Additional Health Concerns Assessment Noted Time PHQ-9 Depression Total Score: 0 08/05/20 24 10:09 AM EDT documented as of this encounter Care Teams Gas And Oil Checker Relationship Specialty Start Date End Date Name, MD Rolf [address] [place] [address] PCP - General Family Medicine 10/21/17 Martine Broussard PharmD [address] [place] [address] Pharmacist Internal Medicine 04/20/23 documented as of this encounter
--- OUTSIDE RECORDS SUMMARY | 2024-06-12 15:31 | XMS_ITS | Encounter Summary ---
Author Organization [employer] Address [address] [facility] 7 [place] [address] Care Team Providers Care Pusher Operator Name Role Phone Name, Rolf PARKS Primary Care Provider [phone] Martine Broussard PharmD Unavailable [phone] Reason for Visit * Reason Comments Med Refill Encounter Details Date Type Department Care Team (Late st Contact Info) Description 12/24/2023 Refill [facility] [address] [place], [place] [phone] Vivian Barajas, ANP [address] [place] [address] Diabetes mellitus type 2 with neurological manifestations [...] 10:00 AM EDT Telemedicine [facility] [address] [place] [phone] Karla Lewis RN 08/18/2024 11:15 AM EDT Office Visit [facility] [address] [place] [phone] Rolf Gamble MD [address] [place] [address] documented as of this encounter Goals Goal [...] documented as of this encounter Care Teams Pusher Operator Relationship Specialty Start Date End Date Rolf Gamble MD [address] [place] [address] PCP - General Family Medicine 10/21/17 Martine Broussard PharmD [address] [place] [address] Pharmacist Internal Medicine 04/20/23 documented as of this encounter
--- OUTSIDE RECORDS SUMMARY | 2024-06-12 15:31 | XMS_ITS | Encounter Summary ---
Author Organization [employer] Address [address] [facility] 7t [place] [address] Care Team Providers Care Freezer Person Name Role Phone Name, Rolf PARKS Primary Care Provider [phone] Martine Broussard PharmD Unavailable [phone] Reason for Visit * Reason Onset Date Comments Med Refill 11/16/2023 Encounter Details Date Type Department Care Team (Late st Contact Info) Description 11/16/2023 Telephone [facility] [place] [facility] [address] [place], [place] [phone] Name, MD Rolf [address] [place], [place] [phone] Med Refill Social History Tobacco Use Types [...] Telephone Encounter - Leanna Perez RN - 11/16/2023 3:26 PM EDT Meds. Already sent for approval. * Telephone Encounter - Kisha You - 11/16/2023 10:39 AM EDT TC from pt requesting medication refill. Medications needing refill : clonazePAM (KlonoPIN) 2 MG tablet [id number] [place] [id number] [address] AT [facility] documented in this encounter Plan of Treatment Upcoming Encounters Date Type Department Care Team (Late st Contact Info) Description 08/18/2024 10:00 AM EDT Telemedicine [facility] [place] [facility] [address] [place] [phone] Karla Lewis RN 08/18/2024 11:15 AM EDT Office Visit [facility] [place] [facility] [address] [place] [phone] Name, MD Rolf [address] [place] [address] documented as of this encounter Goals Goal [...] documented as of this encounter Care Teams Freezer Person Relationship Specialty Start Date End Date Name, MD Rolf [address] [place] [address] PCP - General Family Medicine 10/21/17 Martine Broussard, PharmD [address] [place] [address] Pharmacist Internal Medicine 04/20/23 documented as of this encounter
--- OUTSIDE RECORDS SUMMARY | 2024-06-12 15:31 | XMS_ITS | Encounter Summary ---
Author Organization [employer] Address [address] [facility] 7 [place] [address] Care Team Providers Care Ward Attendant Name Role Phone Name, Rolf PARKS Primary Care Provider [phone] Martine Broussard PharmD Unavailable [phone] Reason for Visit * Reason Comments Med Refill Encounter Details Date Type Department Care Team (Late st Contact Info) Description 02/02/2024 Refill [facility] [address] [place], [place] [phone] Vivian Barajas, ANP [address] [place] [address] Diabetes mellitus type 2 with neurological manifestations [...] AM EDT Telemedicine [facility] [address] [place] [phone] Karla Lewis RN 08/18/2024 11:15 AM EDT Office Visit [facility] [address] [place] [phone] Name, MD Rolf [address] [place] [phone] documented as of this encounter Goals Goal [...] documented as of this encounter Care Teams Ward Attendant Relationship Specialty Start Date End Date Name, MD Rolf [address] [place] [address] PCP - General Family Medicine 10/21/17 Martine Broussard PharmD [address] [place] [address] Pharmacist Internal Medicine 04/20/23 documented as of this encounter
[2024-06-12 16:26] LABS: Anion Gap 14 (12-20); Blood Urea Nitrogen 19 mg/dL (9-16); Calcium 9.7 mg/dL (8.4-10.2); Carbon Dioxide 28 mmol/L (22-29); Chloride 102 mmol/L (96-108); Estimated Glomerular Filt Rate > 60; Glucose Random 180 mg/dL (60-115); Potassium 4.1 mmol/L (3.3-5.1); Sodium 140 mmol/L (135-145)
== END 2024-06-12 14:08 | disposition home or self-care (01) ==
LOC: HO.HHCL 14:07
PROVIDERS: Visit Provider Internal Medicine Geriatric Medicine
DX: I50.22 Chronic systolic (congestive) heart failure (principal)
CPT/HCPCS: 36415; 80048

== ENCOUNTER 2024-07-20 10:08 | Outpatient (AMB) | payer OTHER, SELFPAY ==
--- NOTE | 2024-07-20 10:11 | A.OFFVIS_ITS ---
Vital Signs 07/20/24 10:16 Height 5 ft 1 in Weight 180 lb 12.465 oz BMI 34.2 BP 110/72 Blood Pressure Location Lt brachial Position Sitting Pulse 110 H Pulse Source Pulse Oximeter Pulse Oximetry (%) 95 Oxygen Delivery Method Room Air Intake Visit Reasons: ILD Allergies No Known Allergies [No Known Allergies*] Allergy (Verified 07/20/24 10:19) HPI Comments Details: The patient is a 68-year-old gentleman with a history of tobacco dependency here for evaluation of COPD. The patient states that he has had increasing shortness of breath for several months. However, in August his symptoms worsen with chest discomfort. He was evaluated at [facility] we had a CT scan of the chest that was personally by me. the patient appears to have some degree of subcu emphysema primarily in the upper lung zones and moderate degree of interstitial parenchymal disease at the bases. 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 The patient knows quit smoking. Seems to be doing better on the current respiratory therapy. In the meantime the patient has been having worsening daytime drowsiness. His status been concerned because he does fall asleep frequently during the daytime and also has apneic episodes at nighttime. Positive snoring. The patient does have cardiovascular risk factors. Therefore be reasonable to order a home sleep study this time to address his elevated Poteet score of 11/24. 07/20/2024 the patient is here for pulmonary follow-up visit. The patient overall has been doing well. Has not had any significant issues except for total knee replacement which she did without any difficulties. He denies any worsening with respiratory capacity. He continues on the Advair and also has a rescue inhaler. Sometimes he does have some chest congestion and cough but is only minimal. His last chest x-ray was back in 2022. Has not had any imaging studies since then. Or least that we have available here. Will have her undergo a chest x-ray to follow-up with his pulmonary fibrosis and emphysema. But since the patient is not smoking anymore is likely that things are settled. The patient will continue with current respiratory therapy and will have an x- ray. If I see any significant findings in the x-ray I will let him now in additional imaging studies will be warranted at that point. [facility] Medical History Combined pulmonary fibrosis and emphysema (CPFE) ILD (interstitial lung disease) COPD (chronic obstructive pulmonary disease) Social History Patient Tobacco Use Status: Former Tobacco user Years Smoked: 10 Years Ago Review of Systems Const Reports snoring Eyes Denies change in vision ENT Reports nasal congestion Card Denies chest pain and Reports dyspnea on exertion Resp Reports dyspnea on exertion, Reports snoring and Denies wheezing GI Reports no additional complaints Musc Reports no additional complaints Skin/Breast Denies rash Neuro Reports no additional complaints Norman/Lymph Denies lymphadenopathy Aller/Immun Denies wheezing Physical Exam Vital Signs: Last Vital Signs Pulse 110 H 07/20/24 10:16 BP 110/72 07/20/24 10:16 Pulse Ox 95 07/20/24 10:16 Oxygen Delivery Method Room Air 07/20/24 10:16 BMI result Body Mass Index 34.2 Const General: comfortable HEENT Head: Yes normocephalic Neck Neck: Yes supple Chest Chest palpation & inspection: normal inspection of the chest Resp Effort & Inspection: normal respiratory effort Auscultation: no wheezes and diminished lung sounds Cardio Rate: regular rate Rhythm: regular rhythm Heart sounds: S1 normal heart sound present and S2 normal heart sound present GI Palpation (GI): Soft to palpation Skin General skin exam: no rashes or lesions noted Extrem General: Yes no clubbing, cyanosis or edema Assessment & Plan Assessment & Plan (1) MEHDI (obstructive sleep apnea): Code(s): G47.33 - Obstructive sleep apnea (adult) (pediatric) Category: Medical (2) COPD (chronic obstructive pulmonary disease): Code(s): J44.9 - Chronic obstructive pulmonary disease, unspecified Category: Medical Qualifiers: COPD type: chronic bronchitis Chronic bronchitis type: simple Qualified Code(s): J41.0 - Simple chronic bronchitis (3) ILD (interstitial lung disease): Code(s): J84.9 - Interstitial pulmonary disease, unspecified Category: Medical (4) Combined pulmonary fibrosis and emphysema (CPFE): Code(s): J43.9 - Emphysema, unspecified; J84.10 - Pulmonary fibrosis, unspecified Category: Medical Plan continue LAMA ZEKE as needed positional therapy CXR F/U 12 months Coding Level of Care Code Est Pt Level 4 (93995) Diagnoses MEHDI (obstructive sleep apnea) G47.33 Simple chronic bronchitis J41.0 COPD type: chronic bronchitis Chronic bronchitis type: simple ILD (interstitial lung disease) J84.9 Combined pulmonary fibrosis and emphysema (CPFE) J43.9; J84.10 Time Spent (min) 16
[2024-07-20 10:16] VITALS: BP 110/72; PULSE 110; O2SAT 95; BMI 34.2
--- OUTSIDE RECORDS SUMMARY | 2024-07-20 11:28 | XMS_ITS | Encounter Summary ---
Author Organization [employer] Address 75 [facility] 7 [place] [address] Care Team Providers Care Draw Bench Operator Helper Name Role Phone Name, Rolf PARKS Primary Care Provider [phone] Puia, Martine PharmD Unavailable Puia, Martine PharmD Unavailable [phone] Reason for Visit * Reason Onset Date Comments Med Refill 05/21/2023 Encounter Details Date Type Department Care Team (Late st Contact Info) Description 05/21/2023 Telephone [facility] MEDICINE [address] [place], [place] [phone] Name, MD Rolf 230 [place], [place] [phone] Med Refill Social History Tobacco Use Types [...] EST Medication was sent to [facility] on 04/20/23 with 11 refills. * Telephone Encounter - Brown Giraldo - 05/21/2023 9:30 AM EST TC from pt requesting medication refill. Medications needing refill : dulaglutide (Trulicity) 3 MG/0.5ML solution pen-injector To be sent to: [facility] [place], [place] - [address] [place] [address] documented in this encounter Plan of Treatment Upcoming Encounters Date Type Department Care Team (Late st Contact Info) Description 08/18/2024 10:00 AM EDT Telemedicine [facility] MEDICINE [address] [place] [address] Karla Lewis RN 08/18/2024 11:15 AM EDT Office Visit [facility]INE [address] [place] [address] Name, MD Rolf [address] [place] [address] documented as of this encounter Goals Goal [...] documented as of this encounter Care Teams Draw Bench Operator Helper Relationship Specialty Start Date End Date Name, MD Rolf [address] [place] [address]557 PCP - General Family Medicine 10/21/17 Martine Broussard PharmD [address] [place] [address] Pharmacist Internal Medicine 04/20/23 Martine Broussard PharmD [address] [place] [address]10 Pharmacist Internal Medicine 04/20/23 08/11/23 documented as of this encounter
--- OUTSIDE RECORDS SUMMARY | 2024-07-20 11:28 | XMS_ITS | Encounter Summary ---
Author Organization [employer] Address 75 [facility] 7t [place] [address] Care Team Providers Care Briefcase Sewer Name Role Phone Name, Rolf PARKS Primary Care Provider [phone] Puia, Martine PharmD Unavailable Puia, Martine PharmD Unavailable Reason for Visit * Reason Onset Date Comments Med Refill 05/07/2023 Encounter Details Date Type Department Care Team (Late st Contact Info) Description 05/07/2023 Refill [facility] MED[facility]INE 230 [place], [place] [phone] Name, MD Rolf 230 [place], [place] [phone] Osteoarthritis of knee, unspecified laterality, unspecified osteoarthritis [...] 50 MG tablet To be sent to: [facility] documented in this encounter Plan of Treatment Upcoming Encounters Date Type Department Care Team (Late st Contact Info) Description 08/18/2024 10:00 AM EDT Telemedicine [facility]INE [address] [place] [address] 118[address] Karla Lewis RN 08/18/2024 11:15 AM EDT Office Visit [facility] [address] [place] [address] Name, MD Rolf [address] [place] [address] documented as of this encounter Goals Goal [...] documented as of this encounter Care Teams Briefcase Sewer Relationship Specialty Start Date End Date Name, MD Rolf [address] [place] [address] 84667 PCP - General Family Medicine 10/21/17 Martine Broussard PharmD [address] [place] [address] 84435 Pharmacist Internal Medicine 04/20/23 Martine Broussard PharmD [address] [place] [address] 5[address]18 Pharmacist Internal Medicine 04/20/23 08/11/23 documented as of this encounter
--- OUTSIDE RECORDS SUMMARY | 2024-07-20 11:28 | XMS_ITS | Encounter Summary ---
Author Organization [employer] Address 75 [facility] 7t [place] [address] Care Team Providers Care Healthcare Administration Internship Name Role Phone Name, Rolf PARKS Primary Care Provider [phone] Martine Broussard PharmD Unavailable Reason for Visit * Reason Comments Med Refill Encounter Details Date Type Department Care Team ([facility] st Contact Info) Description 02/22/2024 Refill [facility] MEDICINE 230 [place], [place] [phone] Name, MD Rolf 230 [place] [address] Chronic pain of left knee; COPD exacerbation [...] Info) Description 08/18/2024 10:00 AM EDT Telemedicine [facility] MED[facility]INE [address] [place] [address] Karla Lewis RN 08/18/2024 11:15 AM EDT Office Visit [facility]INE [address] [place] [address] Name, MD Rolf [address] [place] [address] documented as of this encounter Goals Goal [...] documented as of this encounter Care Teams Healthcare Administration Internship Relationship Specialty Start Date End Date Name, MD Rolf [address] [place] [address] PCP - General Family Medicine 10/21/17 Martine Broussard PharmD [address] [place] [address] Pharmacist Internal Medicine 04/20/23 documented as of this encounter
--- OUTSIDE RECORDS SUMMARY | 2024-07-20 11:28 | XMS_ITS | Encounter Summary ---
Author Organization [employer] Address 75 [facility] 7t [place] [address] Care Team Providers Care Pharmacy Stock Clerk Name Role Phone Name, Rolf PARKS Primary Care Provider [phone] Martine Broussard PharmD Unavailable [phone] Reason for Visit * Reason Comments Med Refill Encounter Details Date Type Department Care Team (Late st Contact Info) Description 02/18/2024 Refill [facility] MEDICINE 230 [place], [place] [phone] Name, MD Rolf 230 [place] [address] Chronic pain of left knee; COPD exacerbation [...] Telemedicine [facility] MEDICINE [address] [place] [address] Karla Lewis RN 08/18/2024 11:15 AM EDT Office Visit [facility] MEDICINE [address] [place] [address] Name, MD Rolf [address] [place] [address] documented as of this encounter Goals Goal [...] documented as of this encounter Care Teams Pharmacy Stock Clerk Relationship Specialty Start Date End Date Name, MD Rolf [address] [place] [address] PCP - General Family Medicine 10/21/17 Martine Broussard PharmD 230 [place] [address] Pharmacist Internal Medicine 04/20/23 documented as of this encounter
--- OUTSIDE RECORDS SUMMARY | 2024-07-20 11:28 | XMS_ITS | Encounter Summary ---
Author Organization [employer] Address [address] [place] [address] 7t [place] [address] Care Team Providers Care Lidar Technician Name Role Phone Name, Rolf PARKS Primary Care Provider [phone] Martine Broussard PharmD Unavailable [phone] Reason for Visit * Reason Comments Med Refill Encounter Details Date Type Department Care Team ([facility] st Contact Info) Description 03/01/[address] [facility] MEDICINE 230 [place], [place] [phone] Name, MD Rolf 230 [place] [address] Anxiety; COPD exacerbation (CMS/HCC); Osteoarthritis of knee, [...] [facility] MED[facility]INE [address] [place] [address] Karla Lewis RN 08/18/2024 11:15 AM EDT Office Visit [facility] MED[facility]INE [address] [place] [address] 89707 Name, MD Rolf [address] [place] [address] documented as of this encounter Goals Goal Patient Goal Type Associated Problems Recent Progress Patient-Stated? Author Hemoglobin A1c < 7 Result Component 6.6( 11:14 AM EST) No Martine Broussard, PharmD Record your blood sugar as directed Result Component No Martine Broussard, PharmD documented as of this encounter Visit Diagnoses Diagnosis Anxiety Anxiety state, unspecified COPD exacerbation ([facility]/HCC) Obstructive chronic bronchitis with exacerbation Osteoarthritis of knee, unspecified laterality, unspecified osteoarthritis type Chronic pain of left knee documented in this encounter Additional Health Concerns Assessment Noted Time PHQ-9 Depression Total Score: 0 12/06/19 24 10:09 AM EDT documented as of this encounter Care Teams Lidar Technician Relationship Specialty Start Date End Date Name, MD Rolf [address] [place] [address] PCP - General Family Medicine 10/21/17 Martine Broussard PharmD [address] [place] [address] Pharmacist Internal Medicine 04/20/23 documented as of this encounter
--- OUTSIDE RECORDS SUMMARY | 2024-07-20 11:28 | XMS_ITS | Encounter Summary ---
Author Organization [employer] Address [address] [place] [address] 7 [place] [address] Care Team Providers Care Wax Blender Name Role Phone Name, Rolf PARKS Primary Care Provider [phone] Martine Broussard PharmD Unavailable [phone] Reason for Visit * Reason Comments Med Refill Encounter Details Date Type Department Care Team ([facility] st Contact Info) Description 02/16/2024 Refill [facility] MEDICINE 230 [place], [place] [phone] Name, MD Rolf 230 [place] [address] COPD exacerbation (CMS/HCC); Anxiety Social History Tobacco [...] Info) Description 08/18/2024 10:00 AM EDT Telemedicine [facility] [address] [place] [address] Karla Lewis RN 08/18/2024 11:15 AM EDT Office Visit [facility] [address] [place] [address] Name, MD Rolf [address] [place] [address] documented as of this encounter Goals Goal Patient Goal Type Associated Problems Recent Progress Patient-Stated? Author Hemoglobin A1c < 7 Result Component 6.6( 11:14 AM EST) No Puia, Martine, PharmD Record your blood sugar as directed Result Component No Puia, Martine, PharmD documented as of this encounter Visit Diagnoses Diagnosis COPD exacerbation ([facility]) Obstructive chronic bronchitis with exacerbation Anxiety Anxiety state, unspecified documented in this encounter Additional Health Concerns Assessment Noted Time PHQ-9 Depression Total Score: 0 12/06/19 10:09 AM EDT documented as of this encounter Care Teams Wax Blender Relationship Specialty Start Date End Date Name, MD Rolf 230 [place] [address] PCP - General Family Medicine 10/21/17 Martine Broussard PharmD 230 [place] [address] Pharmacist Internal Medicine 04/20/23 documented as of this encounter
--- OUTSIDE RECORDS SUMMARY | 2024-07-20 11:28 | XMS_ITS | Encounter Summary ---
Author Organization [employer] Address 75 [facility] 7 [place] [address] Care Team Providers Care Prepress Technician Name Role Phone Name, Rolf PARKS Primary Care Provider [phone] Martine Broussard PharmD Unavailable [phone] Reason for Visit * Reason Comments Med Refill Encounter Details Date Type Department Care Team ([facility] st Contact Info) Description 02/18/2024 Refill [facility] MEDICINE 230 [place], [place] [phone] Vivian Barajas, ANP 230 [place] [address] Diabetes mellitus type 2 with neurological manifestations [...] Description 08/18/2024 10:00 AM EDT Telemedicine [facility]INE [address] [place] [address] Karla Lewis RN 08/18/2024 11:15 AM EDT Office Visit [facility] MED[facility] [address] [place] [address] Name, MD Rolf [address] [place] [address] documented as of this encounter Goals Goal [...] documented as of this encounter Care Teams Prepress Technician Relationship Specialty Start Date End Date Name, MD Rolf [address] [place] [address] PCP - General Family Medicine 10/21/17 Martine Broussard PharmD [address] [place] [address] Pharmacist Internal Medicine 04/20/23 documented as of this encounter
--- OUTSIDE RECORDS SUMMARY | 2024-07-20 11:28 | XMS_ITS | Encounter Summary ---
Author Organization [employer] Address 75 [facility] 7 [place] [address] Care Team Providers Care Office Technician Name Role Phone Name, Rolf PARKS Primary Care Provider [phone] Puia, Martine PharmD Unavailable Puia, Martine PharmD Unavailable Reason for Visit * Reason Onset Date Comments Med Refill 05/04/2023 Encounter Details Date Type Department Care Team (Late st Contact Info) Description 05/04/2023 Telephone [facility] MEDICINE 230 [place], [place] [phone] Name, MD Rolf 230 [place], [place] [phone] Med Refill Social History Tobacco Use Types [...] 3:59 PM EST Gabapentin was sent to [facility] on 04/21/23 and [id number] with 2 refills. * Telephone Encounter - Familia Doyle - 05/04/2023 3:46 PM EST TC from pt's daughter requesting medication refill. Medications needing refill : escitalopram (Lexapro) 10 MG tablet and gabapentin (Neurontin) 300 MG capsule documented in this encounter Plan of Treatment Upcoming Encounters Date Type Department Care Team (Late st Contact Info) Description 08/18/2024 10:00 AM EDT Telemedicine [facility] MED[facility]INE [address] [place] [address]57 Karla Lewis RN 08/18/2024 11:15 AM EDT Office Visit [facility] MED[facility] [address] [place] [address] 7[address]47 Name, MD Rolf [address] [place] [address] documented as of this encounter Goals Goal [...] documented as of this encounter Care Teams Office Technician Relationship Specialty Start Date End Date Name, MD Rolf [address] [place] [address] PCP - General Family Medicine 10/21/17 Martine Broussard PharmD [address] [place] [address] Pharmacist Internal Medicine 04/20/23 Martine Broussard PharmD [address] [place] [address] 28137 Pharmacist Internal Medicine 04/20/23 08/11/23 documented as of this encounter
--- OUTSIDE RECORDS SUMMARY | 2024-07-20 11:28 | XMS_ITS | Encounter Summary ---
Author Organization [employer] Address 75 [facility] 7 [place] [address] Care Team Providers Care Preanalytics Team Lead Name Role Phone Name, Rolf PARKS Primary Care Provider [phone] Puia, Martine PharmD Unavailable Puia, Martine PharmD Unavailable [phone] Reason for Visit * Reason Onset Date Comments Med Refill 05/07/2023 Encounter Details Date Type Department Care Team (Late st Contact Info) Description 05/07/2023 Telephone [facility] MEDICINE 230 [place], [place] [phone] Name, MD Rolf 230 [place], [place] [phone] Med Refill Social History Tobacco Use Types [...] 3:52 PM EST Medication was sent to [facility] on 04/21/23. * Telephone Encounter - Familia Doyle - 05/07/2023 3:49 PM EST TC from pt requesting medication refill. Medications needing refill : gabapentin (Neurontin) 300 MG capsule To be sent to: [facility] documented in this encounter Plan of Treatment Upcoming Encounters Date Type Department Care Team (Late st Contact Info) Description 08/18/2024 10:00 AM EDT Telemedicine [facility] MEDICINE [address] [place] [address] Karla Lewis RN 08/18/2024 11:15 AM EDT Office Visit [facility]INE [address] [place] [address] Name, MD Rolf [address] [place] [address] documented as of this encounter Goals Goal [...] documented as of this encounter Care Teams Preanalytics Team Lead Relationship Specialty Start Date End Date Name, MD Rolf [address] [place] [address] PCP - General Family Medicine 10/21/17 Martine Broussard, PharmD [address] [place] [address] Pharmacist Internal Medicine 04/20/23 Martine Broussard PharmD [address] [place] [address]259 Pharmacist Internal Medicine 04/20/23 08/11/23 documented as of this encounter
--- OUTSIDE RECORDS SUMMARY | 2024-07-20 11:28 | XMS_ITS | Encounter Summary ---
Author Organization [employer] Address [address] [place] [address] 7 [place] [address] Care Team Providers Care Stove Tender Name Role Phone Name, Rolf PARKS Primary Care Provider [phone] Martine Broussard PharmD Unavailable [phone] Reason for Visit * Reason Onset Date Comments fyi 02/22/2024 Durable Medical Equipment 02/22/2024 Encounter Details Date Type Department Care Team (Late st Contact Info) Description 02/22/2024 Telephone [facility] MEDICINE 230 [place], [place] [phone] Name, MD Rolf [address] [place] [address] fyi; Durable Medical Equipment Social History Tobacco [...] surgery 02/28 and needs DME equipment. Annetta ([place]) [phone] documented in this encounter Plan of Treatment Upcoming Encounters Date Type Department Care Team (Late st Contact Info) Description 08/18/2024 10:00 AM EDT Telemedicine [facility] MEDICINE [address] [place] [address] Karla Lewis, RN 08/18/2024 11:15 AM EDT Office Visit [facility] MED[facility] [address] [place] [address] 97[address] Name, MD Rolf [address] [place] [address] documented as of this encounter Goals Goal [...] documented as of this encounter Care Teams Stove Tender Relationship Specialty Start Date End Date Name, MD Rolf [address] [place] [address] PCP - General Family Medicine 10/21/17 Martine Broussard PharmD 230 [place] [address] Pharmacist Internal Medicine 04/20/23 documented as of this encounter
--- OUTSIDE RECORDS SUMMARY | 2024-07-20 11:28 | XMS_ITS | Encounter Summary ---
Author Organization [employer] Address 75 [facility] 7 [place] [address] Care Team Providers Care Process Helper Name Role Phone Name, Rolf PARKS Primary Care Provider [phone] Martine Broussard PharmD Unavailable [phone] Reason for Visit * Reason Comments Med Refill Encounter Details Date Type Department Care Team ([facility] st Contact Info) Description 03/02/2024 Refill [facility] MEDICINE 230 [place], [place] [phone] Vivian Barajas, ANP 230 [place] [address] Diabetes mellitus type 2 with neurological manifestations [...] Description 08/18/2024 10:00 AM EDT Telemedicine [facility] MED[facility]INE [address] [place] [address] Karla Lewis RN 08/18/2024 11:15 AM EDT Office Visit [facility] [address] [place] [address] Name, MD Rolf [address] [place] [address] documented as of this encounter Goals Goal [...] documented as of this encounter Care Teams Process Helper Relationship Specialty Start Date End Date Name, MD Rolf [address] [place] [address] PCP - General Family Medicine 10/21/17 Martine Broussard PharmD 230 [place] [address] Pharmacist Internal Medicine 04/20/23 documented as of this encounter
--- OUTSIDE RECORDS SUMMARY | 2024-07-20 11:28 | XMS_ITS | Encounter Summary ---
Author Organization [employer] Address 75 [facility] 7 [place] [address] Care Team Providers Care Watchmaker Apprentice Name Role Phone Name, Rolf PARKS Primary Care Provider [phone] Martine Broussard PharmD Unavailable [phone] Reason for Visit * Reason Comments Med Refill Encounter Details Date Type Department Care Team (Late st Contact Info) Description 03/08/2024 Refill [facility] [address] [place], [place] [phone] Vivian Barajas, ANP 230 [place] [address] Diabetes mellitus type 2 with neurological manifestations [...] 10:00 AM EDT Telemedicine [facility] [address] [place] [address] 8[address] Karla Lewis RN 08/18/2024 11:15 AM EDT Office Visit [facility] [address] [place] [address] 87141 Name, MD Rolf [address] [place] [address] documented as of this encounter Goals Goal [...] documented as of this encounter Care Teams Watchmaker Apprentice Relationship Specialty Start Date End Date Name, MD Rolf [address] [place] [address] PCP - General Family Medicine 10/21/17 Martine Broussard PharmD [address] [place] [address] Pharmacist Internal Medicine 04/20/23 documented as of this encounter
--- OUTSIDE RECORDS SUMMARY | 2024-07-20 11:28 | XMS_ITS | Encounter Summary ---
Author Organization [employer] Address 75 [facility] 7 [place] [address] Care Team Providers Care Vinegar Maker Name Role Phone Name, Rolf PARKS Primary Care Provider Martine Broussard PharmD Unavailable Reason for Visit * Reason Comments Med Refill Encounter Details Date Type Department Care Team ([facility] st Contact Info) Description 03/13/2024 Refill [facility] [address] [place], [place] [phone] Vivian Barajas, ANP [address] [place] [address] Diabetes mellitus type 2 with neurological manifestations [...] AM EDT Telemedicine [facility] [address] [place] [address] Karla Lewis RN 08/18/2024 11:15 AM EDT Office Visit [facility] [address] [place] [address] 77716 Name, MD Rolf [address] [place] [address] 7[address] documented as of this encounter Goals Goal [...] documented as of this encounter Care Teams Vinegar Maker Relationship Specialty Start Date End Date Name, MD Rolf [address] [place] [address] PCP - General Family Medicine 10/21/17 Martine Broussard PharmD [address] [place] [address] Pharmacist Internal Medicine 04/20/23 documented as of this encounter
--- OUTSIDE RECORDS SUMMARY | 2024-07-20 11:28 | XMS_ITS | Encounter Summary ---
Author Organization [employer] Address 75 [facility] 7 [place] [address] Care Team Providers Care Director Of Patient Care Name Role Phone Name, Rolf PARKS Primary Care Provider [phone] Martine Broussard PharmD Unavailable [phone] Reason for Visit * Reason Comments Med Refill Encounter Details Date Type Department Care Team (Late st Contact Info) Description 04/03/2024 Refill [facility] 230 [place], [place] [phone] Vivian Barajas, ANP [address] [place] [address] Diabetes mellitus type 2 with neurological manifestations [...] EDT Telemedicine [facility] [address] [place] [address] 14596 Karla Lewis RN 08/18/2024 11:15 AM EDT Office Visit [facility] [address] [place] [address] Name, MD Rolf [address] [place] [address] 8[address] documented as of this encounter Goals Goal [...] documented as of this encounter Care Teams Director Of Patient Care Relationship Specialty Start Date End Date Name, MD Rolf [address] [place] [address] PCP - General Family Medicine 10/21/17 Martine Broussard PharmD [address] [place] [address] Pharmacist Internal Medicine 04/20/23 documented as of this encounter
--- OUTSIDE RECORDS SUMMARY | 2024-07-20 11:28 | XMS_ITS | Encounter Summary ---
Author Organization [employer] Address 75 [facility] 7t [place] [address] Care Team Providers Care Carbide Operator Name Role Phone Name, Rolf PARKS Primary Care Provider [phone] Puia, Martine PharmD Unavailable [phone] Puia, Mratine PharmD Unavailable Reason for Visit * Reason Comments Med Refill Encounter Details Date Type Department Care Team (Late st Contact Info) Description 06/02/2023 Refill [facility] [address] [place], [place] [phone] Delisa Hilliard MD 230 [place] [address] Osteoarthritis of knee, unspecified laterality, unspecified osteoarthritis [...] EDT Telemedicine [facility] [address] [place] [address] 8[address]69 Karla Lewis RN 08/18/2024 11:15 AM EDT Office Visit [facility] [address] [place] [address]177 Name, MD Rolf [address] [place] [address] 12168 documented as of this encounter Goals Goal [...] documented as of this encounter Care Teams Carbide Operator Relationship Specialty Start Date End Date NameRolf MD [address] [place] [address] PCP - General Family Medicine 10/21/17 Puia, Martine, PharmD 230 [place] [address] Pharmacist Internal Medicine 04/20/23 Martine Broussard PharmD [address] [place] [address] Pharmacist Internal Medicine 04/20/23 08/11/23 documented as of this encounter
--- OUTSIDE RECORDS SUMMARY | 2024-07-20 11:28 | XMS_ITS | Encounter Summary ---
Author Organization [employer] Address 75 [facility] 7t [place] [address] Care Team Providers Care Utility Assembler Name Role Phone Name, Rolf PARKS Primary Care Provider [phone] Puia, Martine PharmD Unavailable [phone] Puia, Martine PharmD Unavailable Reason for Visit * Reason Comments Med Refill Encounter Details Date Type Department Care Team (Late st Contact Info) Description 06/02/2023 Refill [facility] [address] [place], [place] [phone] Delisa Hilliard MD 230 [place] [address] Osteoarthritis of knee, unspecified laterality, unspecified osteoarthritis [...] is your housing situation today? I have riyajkay taylor 02/15/[address] you [...] EDT Telemedicine [facility] [address] [place] [address] Karla Lewis RN 08/18/2024 11:15 AM EDT Office Visit [facility] [address] [place] [address] Name, MD Rolf [address] [place] [address] 6[address] documented as of this encounter Goals Goal [...] documented as of this encounter Care Teams Utility Assembler Relationship Specialty Start Date End Date NameRolf MD [address] [place] [address] PCP - General Family Medicine 10/21/17 Puia, Martine, PharmD [address] [place] [address] Pharmacist Internal Medicine 04/20/23 Martine Broussard PharmD [address] [place] [address] Pharmacist Internal Medicine 04/20/23 08/11/23 documented as of this encounter
--- OUTSIDE RECORDS SUMMARY | 2024-07-20 11:28 | XMS_ITS | Encounter Summary ---
Author Organization [employer] Address 75 [facility] 7t [place] [address] Care Team Providers Care Cyber Security Administrator Name Role Phone Name, Rolf PARKS Primary Care Provider [phone] Puia, Martine PharmD Unavailable [phone] Puia, Martine PharmD Unavailable Reason for Visit * Reason Comments Med Refill Encounter Details Date Type Department Care Team (Late st Contact Info) Description 05/31/2023 Refill [facility] [address] [place], [place] [phone] Delisa Hilliard MD 230 [place] [address] Osteoarthritis of knee, unspecified laterality, unspecified osteoarthritis [...] 08/18/2024 10:00 AM EDT Telemedicine [facility] [address] [place] [address] Karla Lewis RN 08/18/2024 11:15 AM EDT Office Visit [facility] [address] [place] [address] 68964 Name, MD Rolf [address] [place] [address] 99952 documented as of this encounter Goals Goal [...] documented as of this encounter Care Teams Cyber Security Administrator Relationship Specialty Start Date End Date NameRolf MD [address] [place] [address] 79168 PCP - General Family Medicine 10/21/17 Puia, Martine, PharmD 230 [place] [address] Pharmacist Internal Medicine 04/20/23 Martine Broussard PharmD 230 [place] [address] Pharmacist Internal Medicine 04/20/23 08/11/23 documented as of this encounter
--- OUTSIDE RECORDS SUMMARY | 2024-07-20 11:28 | XMS_ITS | Encounter Summary ---
Author Organization [employer] Address [address] [place] [address] 7t [place] [address] Care Team Providers Care Jailer/Training Officer Name Role Phone Name, Rolf PARKS Primary Care Provider [phone] Martine Broussard PharmD Unavailable [phone] Reason for Visit * Reason Comments Med Refill Encounter Details Date Type Department Care Team ([facility] st Contact Info) Description 02/28/2024 Refill [facility] 230 [place], [place] [phone] Name, MD Rolf 230 [place] [address] COPD exacerbation (CMS/HCC); Anxiety; Osteoarthritis of knee, [...] [facility] [address] [place] [address] 04653 Karla Lewis RN 08/18/2024 11:15 AM EDT Office Visit [facility] [address] [place] [address] 82614 Name, MD Rolf [address] [place] [address]011 documented as of this encounter Goals Goal Patient Goal Type Associated Problems Recent Progress Patient-Stated? Author Hemoglobin A1c < 7 Result Component 6.6( 11:14 AM EST) No Martine Broussard, PharmD Record your blood sugar as directed Result Component No Martine Broussard, PharmD documented as of this encounter Visit Diagnoses Diagnosis COPD exacerbation ([facility]) Obstructive chronic bronchitis with exacerbation Anxiety Anxiety state, unspecified Osteoarthritis of knee, unspecified laterality, unspecified osteoarthritis type Chronic pain of left knee documented in this encounter Additional Health Concerns Assessment Noted Time PHQ-9 Depression Total Score: 0 12/06/19 24 10:09 AM EDT documented as of this encounter Care Teams Jailer/Training Officer Relationship Specialty Start Date End Date Name, MD Rolf 230 [place] [address] PCP - General Family Medicine 10/21/17 Martine Broussard PharmD 230 [place] [address] Pharmacist Internal Medicine 04/20/23 documented as of this encounter
--- OUTSIDE RECORDS SUMMARY | 2024-07-20 11:28 | XMS_ITS | Encounter Summary ---
Author Organization [employer] Address 75 [facility] 7 [place] [address] Care Team Providers Care Social Organization Professor Name Role Phone Name, Rolf PARKS Primary Care Provider [phone] Martine Broussard PharmD Unavailable Reason for Visit * Reason Comments Med Refill Encounter Details Date Type Department Care Team ([facility] st Contact Info) Description 02/18/2024 Refill [facility] 230 [place], [place] [phone] Vivian Barajas, ANP 230 [place] [address] Diabetes mellitus type 2 with neurological manifestations [...] 08/18/2024 10:00 AM EDT Telemedicine [facility] MED[facility]INE [address] [place] [address] 62798 Karla Lewis RN 08/18/2024 11:15 AM EDT Office Visit [facility] [address] [place] [address] 42734 Name, MD Rolf [address] [place] [address] 26705 documented as of this encounter Goals Goal [...] documented as of this encounter Care Teams Social Organization Professor Relationship Specialty Start Date End Date Name, MD Rolf 230 [place] [address] PCP - General Family Medicine 10/21/17 Martine Broussard PharmD [address] [place] [address] Pharmacist Internal Medicine 04/20/23 documented as of this encounter
--- OUTSIDE RECORDS SUMMARY | 2024-07-20 11:28 | XMS_ITS | Encounter Summary ---
Author Organization [employer] Address [address] [place] [address] 7t [place] [address] Care Team Providers Care Residential Mortgage Manager Name Role Phone Name, Rolf PARKS Primary Care Provider [phone] Martine Broussard PharmD Unavailable [phone] Reason for Visit * Reason Comments Med Refill Encounter Details Date Type Department Care Team (Late st Contact Info) Description 04/03/2024 Refill [facility] 230 [place], [place] [phone] Name, MD Rolf 230 [place] [address] Abnormal chest x-ray; Tobacco use; Type 2 diabetes mellitus with hyperglycemia, without long-term current use of insulin ([facility]); Osteoarthritis of knee, unspecified laterality, unspecified osteoarthritis [...] 10:00 AM EDT Telemedicine [facility] [address] [place] [address] 49060 Karla Lewis RN 08/18/2024 11:15 AM EDT Office Visit [facility] [address] [place] [address] 22271 Name, MD Rolf [address] [place] [address] 45831 documented as of this encounter Goals Goal [...] hyperglycemia, without long-term current use of insulin ([facility]) Osteoarthritis of knee, unspecified laterality, unspecified osteoarthritis type Iron deficiency anemia, unspecified iron deficiency anemia type documented in this encounter Additional Health Concerns Assessment Noted Time PHQ-9 Depression Total Score: 0 12/06/19 24 10:09 AM EDT documented as of this encounter Care Teams Residential Mortgage Manager Relationship Specialty Start Date End Date Name, MD Rolf 230 [place] [address] PCP - General Family Medicine 10/21/17 Martine Broussard PharmD 230 [place] [address] Pharmacist Internal Medicine 04/20/23 documented as of this encounter
--- OUTSIDE RECORDS SUMMARY | 2024-07-20 11:28 | XMS_ITS | Encounter Summary ---
Author Organization [employer] Address 75 [facility] 7t [place] [address] Care Team Providers Care Senior Oracle Applications Developer Name Role Phone Name, Rolf PARKS Primary Care Provider [phone] Puia, Martine PharmD Unavailable [phone] Puia, Martine PharmD Unavailable Reason for Visit * Reason Comments Med Refill Encounter Details Date Type Department Care Team ([facility] st Contact Info) Description 05/31/2023 Refill [facility] 230 [place], [place] [phone] Mary Mcguire DO 230 [place], [place] [phone] Osteoarthritis of knee, unspecified laterality, unspecified osteoarthritis [...] Info) Description 08/18/2024 10:00 AM EDT Telemedicine [facility] [address] [place] [address]31 Karla Lewis RN 08/18/2024 11:15 AM EDT Office Visit [facility] [address] [place] [address] 43382 Name, MD Rolf [address] [place] [address] 03500 documented as of this encounter Goals Goal [...] documented as of this encounter Care Teams Senior Oracle Applications Developer Relationship Specialty Start Date End Date NameRolf MD [address] [place] [address] 09540 PCP - General Family Medicine 10/21/17 PuiaLanceMartine, PharmD 230 [place] [address] Pharmacist Internal Medicine 04/20/23 Martine Broussard PharmD [address] [place] [address] Pharmacist Internal Medicine 04/20/23 08/11/23 documented as of this encounter
--- OUTSIDE RECORDS SUMMARY | 2024-07-20 11:28 | XMS_ITS | Encounter Summary ---
Author Organization [employer] Address [address] [place] [address] 7 [place] [address] Care Team Providers Care Sap Pi Developer Name Role Phone Name, Rolf PARKS Primary Care Provider [phone] Martine Broussard PharmD Unavailable [phone] Reason for Visit * Reason Comments Med Refill Encounter Details Date Type Department Care Team (Late st Contact Info) Description 03/08/2024 Refill [facility]INE 230 [place], [place] [phone] Name, MD Rolf [address] [place] [address] Osteoarthritis of knee, unspecified laterality, unspecified osteoarthritis [...] Info) Description 08/18/2024 10:00 AM EDT Telemedicine [facility] MED[facility]INE [address] [place] [address] 71864 Karla Lewis RN 08/18/2024 11:15 AM EDT Office Visit [facility] [address] [place] [address] 16171 Name, MD Rolf [address] [place] [address] 9[address]51 documented as of this encounter Goals Goal [...] documented as of this encounter Care Teams Sap Pi Developer Relationship Specialty Start Date End Date Name, MD Rolf [address] [place] [address] PCP - General Family Medicine 10/21/17 Martine Broussard PharmD [address] [place] [address] Pharmacist Internal Medicine 04/20/23 documented as of this encounter
--- OUTSIDE RECORDS SUMMARY | 2024-07-20 11:28 | XMS_ITS | Encounter Summary ---
Author Organization [employer] Address 75 [facility] 7 [place] [address] Care Team Providers Care Head Packager Name Role Phone Name, Rolf PARKS Primary Care Provider [phone] Martine Brousasrd PharmD Unavailable [phone] Reason for Visit * Reason Comments Med Refill Encounter Details Date Type Department Care Team (Late st Contact Info) Description 03/10/2024 Refill [facility] 230 [place], [place] [phone] Name, MD Rolf 230 [place] [address] Osteoarthritis of knee, unspecified laterality, unspecified osteoarthritis [...] AM EDT Telemedicine [facility] [address] [place] [address]32 Karla Lewis RN 08/18/2024 11:15 AM EDT Office Visit [facility] [address] [place] [address] 65583 Name, MD Rolf [address] [place] [address] 01236 documented as of this encounter Goals Goal [...] documented as of this encounter Care Teams Head Packager Relationship Specialty Start Date End Date Name, MD Rolf [address] [place] [address] PCP - General Family Medicine 10/21/17 Martine Broussard PharmD 230 [place] [address] Pharmacist Internal Medicine 04/20/23 documented as of this encounter
--- OUTSIDE RECORDS SUMMARY | 2024-07-20 11:28 | XMS_ITS | Encounter Summary ---
Author Organization [employer] Address [address] [place] [address] 7 [place] [address] Care Team Providers Care Director Drug Safety Name Role Phone Name, Rolf PARKS Primary Care Provider [phone] Martine Broussard PharmD Unavailable [phone] Reason for Visit * Reason Comments Med Refill Encounter Details Date Type Department Care Team ([facility] st Contact Info) Description 02/11/[address] [facility] MEDICINE 230 [place], [place] [phone] Name, MD Rolf 230 [place] [address] Anxiety; Chronic pain of left knee; Osteoarthritis [...] [facility] MEDICINE [address] [place] [address]05 Karla Lewis RN 08/18/2024 11:15 AM EDT Office Visit [facility] MEDICINE [address] [place] [address] 88450 Name, MD Rolf [address] [place] [address] 41682 documented as of this encounter Goals Goal [...] as of this encounter Care Teams Director Drug Safety Relationship Specialty Start Date End Date Name, MD Rolf 230 [place] [address] PCP - General Family Medicine 10/21/17 Martine Broussard PharmD 230 [place] [address] Pharmacist Internal Medicine 04/20/23 documented as of this encounter
--- OUTSIDE RECORDS SUMMARY | 2024-07-20 11:28 | XMS_ITS | Encounter Summary ---
Author Organization [employer] Address 75 [facility] 7t [place] [address] Care Team Providers Care Pot Annealer Name Role Phone Name, Rolf PARKS Primary Care Provider [phone] Martine Broussard PharmD Unavailable [phone] Encounter Details Date Type Department Care Team ([facility] st Contact Info) Description 02/22/2024 Telephone [facility] MED[facility] 230 [place], [place] [phone] Name, MD Rolf [address] [place] [address] Social History Tobacco Use Types Packs/Day Years [...] 08/18/2024 10:00 AM EDT Telemedicine [facility] MED[facility]INE [address] [place] [address]65 Karla Lewis RN 08/18/2024 11:15 AM EDT Office Visit [facility] [address] [place] [phone] Rolf Gamble MD [address] [place] [address] 18465 documented as of this encounter Goals Goal [...] documented as of this encounter Care Teams Pot Annealer Relationship Specialty Start Date End Date Rolf Gamble MD [address] [place] [address] PCP - General Family Medicine 10/21/17 Martine Broussard PharmD [address] [place] [address] Pharmacist Internal Medicine 04/20/23 documented as of this encounter
--- OUTSIDE RECORDS SUMMARY | 2024-07-20 11:28 | XMS_ITS | Encounter Summary ---
Author Organization [employer] Address [address] [place] [address] 7 [place] [address] Care Team Providers Care Field Laborer Name Role Phone Name, Rolf PARKS Primary Care Provider [phone] Martine Broussard PharmD Unavailable [phone] Reason for Visit * Reason Comments Med Refill Encounter Details Date Type Department Care Team ([facility] st Contact Info) Description 02/09/2024 Refill [facility] MEDICINE 230 [place], [place] [phone] Name, MD Rolf 230 [place] [address] COPD exacerbation (CMS/HCC) Social History Tobacco Use [...] Info) Description 08/18/2024 10:00 AM EDT Telemedicine [facility] MEDICINE [address] [place] [address]650 Karla Lewis RN 08/18/2024 11:15 AM EDT Office Visit [facility] [address] [place] [address] 11354 Name, MD Rolf [address] [place] [address] 39[address] documented as of this encounter Goals Goal Patient Goal Type Associated Problems Recent Progress Patient-Stated? Author Hemoglobin A1c < 7 Result Component 6.6( 11:14 AM EST) No Puia, Martine, PharmD Record your blood sugar as directed Result Component No Puia, Martine, PharmD documented as of this encounter Visit Diagnoses Diagnosis COPD exacerbation ([facility]) Obstructive chronic bronchitis with exacerbation documented in this encounter Additional Health Concerns Assessment Noted Time PHQ-9 Depression Total Score: 0 12/06/19 10:09 AM EDT documented as of this encounter Care Teams Field Laborer Relationship Specialty Start Date End Date Name, MD Rolf 230 [place] [address] PCP - General Family Medicine 10/21/17 Martine Broussard PharmD 230 [place] [address] Pharmacist Internal Medicine 04/20/23 documented as of this encounter
--- OUTSIDE RECORDS SUMMARY | 2024-07-20 11:28 | XMS_ITS | Encounter Summary ---
Author Organization [employer] Address [address] [place] [address] 7 [place] [address] Care Team Providers Care Small Business Consultant Name Role Phone Name, Rolf PARKS Primary Care Provider [phone] Martine Broussard PharmD Unavailable [phone] Reason for Visit * Reason Comments Med Refill Encounter Details Date Type Department Care Team ([facility] st Contact Info) Description 02/10/2024 Refill [facility] 230 [place], [place] [phone] Name, MD Rolf 230 [place] [address] COPD exacerbation (CMS/HCC) Social History Tobacco Use [...] Info) Description 08/18/2024 10:00 AM EDT Telemedicine [facility] [address] [place] [address] Karla Lewis RN 08/18/2024 11:15 AM EDT Office Visit [facility] [address] [place] [address] Name, MD Rolf [address] [place] [address] documented as of this encounter Goals Goal Patient Goal Type Associated Problems Recent Progress Patient-Stated? Author Hemoglobin A1c < 7 Result Component 6.6( 11:14 AM EST) No Puia, Martine, PharmD Record your blood sugar as directed Result Component No Puia, Martine, PharmD documented as of this encounter Visit Diagnoses Diagnosis COPD exacerbation ([facility]) Obstructive chronic bronchitis with exacerbation documented in this encounter Additional Health Concerns Assessment Noted Time PHQ-9 Depression Total Score: 0 12/06/19 10:09 AM EDT documented as of this encounter Care Teams Small Business Consultant Relationship Specialty Start Date End Date Name, MD Rolf 230 [place] [address] PCP - General Family Medicine 10/21/17 Martine Broussard PharmD 230 [place] [address] Pharmacist Internal Medicine 04/20/23 documented as of this encounter
--- OUTSIDE RECORDS SUMMARY | 2024-07-20 11:29 | XMS_ITS | Encounter Summary ---
Author Organization [employer] Address [address] [facility] 7 [place] [address] Care Team Providers Care Field Service Tech Name Role Phone Name, Rolf PARKS Primary Care Provider [phone] Martine Broussard PharmD Unavailable [phone] Reason for Visit * Reason Comments Med Refill Encounter Details Date Type Department Care Team ([facility] st Contact Info) Description 04/24/2024 Refill [facility] MEDICINE 230 [place], [place] [phone] Vivian Barajas, ANP 230 [place] [address] Diabetes mellitus type 2 with neurological manifestations [...] Info) Description 08/18/2024 10:00 AM EDT Telemedicine [facility] MEDICINE [address] [place] [address] 119[address] Karla Lewis RN 08/18/2024 11:15 AM EDT Office Visit [facility] [address] [place] [address] Name, MD Rolf [address] [place] [address] documented as of this encounter Goals Goal [...] as of this encounter Care Teams Field Service Tech Relationship Specialty Start Date End Date Name, MD Rolf 230 [place] [address] PCP - General Family Medicine 10/21/17 Martine Broussard PharmD 230 [place] [address] Pharmacist Internal Medicine 04/20/23 documented as of this encounter
--- OUTSIDE RECORDS SUMMARY | 2024-07-20 11:29 | XMS_ITS | Encounter Summary ---
Author Organization [employer] Address [address] [place] [address] 7 [place] [address] Care Team Providers Care Life Science Teacher Name Role Phone Name, Rolf PARKS Primary Care Provider [phone] Martine Broussard PharmD Unavailable [phone] Reason for Visit * Reason Comments Med Refill Encounter Details Date Type Department Care Team ([facility] st Contact Info) Description 05/02/[address] [facility] MED[facility]INE 230 [place], [place] [phone] Name, MD Rolf 230 [place] [address] Osteoarthritis of knee, unspecified laterality, unspecified osteoarthritis [...] Description 08/18/2024 10:[address] [facility] MED[facility]INE [address] [place] [address] Karla Lewis RN 08/18/2024 11:15 AM EDT Office Visit [facility] [address] [place] [address] Name, MD Rolf [address] [place] [address] documented as of this encounter Goals Goal [...] documented as of this encounter Care Teams Life Science Teacher Relationship Specialty Start Date End Date Name, MD Rolf 230 [place] [address] PCP - General Family Medicine 10/21/17 Martine Broussard PharmD 230 [place] [address] Pharmacist Internal Medicine 04/20/23 documented as of this encounter
--- OUTSIDE RECORDS SUMMARY | 2024-07-20 11:29 | XMS_ITS | Encounter Summary ---
Author Organization [employer] Address 75 [facility] 7t [place] [address] Care Team Providers Care Change Room Attendant Name Role Phone Name, Rolf PARKS Primary Care Provider Martine Broussard PharmD Unavailable [phone] Reason for Visit * Reason Comments Med Refill Encounter Details Date Type Department Care Team ([facility] st Contact Info) Description 09/15/2023 Refill [facility] MED[facility]INE [address] [place], [place] [phone] Name, MD Rolf 230 [place] [address] Osteoarthritis of knee, unspecified laterality, unspecified osteoarthritis [...] EDT Telemedicine [facility] MEDICINE [address] [place] [address] Karla Lewis RN 08/18/2024 11:15 AM EDT Office Visit [facility] MED[facility]INE [address] [place] [address] 9[address] Name, MD Rolf [address] [place] [address] documented as of this encounter Goals Goal [...] documented as of this encounter Care Teams Change Room Attendant Relationship Specialty Start Date End Date Rolf Gamble MD [address] [place] [address] PCP - General Family Medicine 10/21/17 PuiaLanceMartine, PharmD [address] [place] [address] Pharmacist Internal Medicine 04/20/23 documented as of this encounter
--- OUTSIDE RECORDS SUMMARY | 2024-07-20 11:29 | XMS_ITS | Encounter Summary ---
Author Organization [employer] Address [address] [facility] 7t [place] [address] Care Team Providers Care Building Performance Specialist Name Role Phone Name, Rolf PARKS Primary Care Provider [phone] Puia, Martine PharmD Unavailable Puia, Martine PharmD Unavailable Reason for Visit * Reason Comments Med Refill Encounter Details Date Type Department Care Team ([facility] st Contact Info) Description 07/21/2023 Refill [facility] MEDICINE 230 [place] [address] Name, MD Rolf 230 [place], [place] [phone] Type 2 diabetes mellitus with hyperglycemia, without long-term current use of insulin ([facility]); Iron deficiency anemia, unspecified iron deficiency anemia [...] EDT Telemedicine [facility] MEDICINE [address] [place] [address] Karla Lewis RN 08/18/2024 11:15 AM EDT Office Visit [facility] MEDICINE [address] [place] [address] Name, MD Rolf [address] [place] [address] documented as of this encounter Goals Goal Patient Goal Type Associated Problems Recent Progress Patient-Stated? Author Hemoglobin A1c < 7 Result Component 6.6( 11:14 AM EST) No Puia, Martine, PharmD Record your blood sugar as directed Result Component No Puia, Martine, PharmD documented as of this encounter Visit Diagnoses Diagnosis Type 2 diabetes mellitus with hyperglycemia, without long-term current use of insulin ([facility]) Iron deficiency anemia, unspecified iron deficiency anemia type documented in this encounter Additional Health Concerns Assessment Noted Time PHQ-9 Depression Total Score: 14 023 1:07 PM EDT documented as of this encounter Care Teams Building Performance Specialist Relationship Specialty Start Date End Date Name, MD Rolf [address] [place] [address] PCP - General Family Medicine 10/21/17 Martine Broussard, Paulo 230 [place] [address] Pharmacist Internal Medicine 04/20/23 Martine Broussard, Paulo 230 [place] [address] Pharmacist Internal Medicine 04/20/23 08/11/23 documented as of this encounter
--- OUTSIDE RECORDS SUMMARY | 2024-07-20 11:29 | XMS_ITS | Encounter Summary ---
Author Organization [employer] Address 75 [facility] 7t [place] [address] Care Team Providers Care Beef Grader Name Role Phone Name, Rolf PARKS Primary Care Provider [phone] Puia, Martine PharmD Unavailable Puia, Martine PharmD Unavailable Reason for Visit * Reason Comments Med Refill Encounter Details Date Type Department Care Team ([facility] st Contact Info) Description 07/12/2023 Refill [facility] MEDICINE 230 [place], [place] [phone] Name, MD Rolf 230 [place], [place] [phone] Anxiety Social History Tobacco Use Types Packs/Day [...] Info) Description 08/18/2024 10:00 AM EDT Telemedicine [facility] MEDICINE [address] [place] [address] Karla Lewis RN 08/18/2024 11:15 AM EDT Office Visit [facility] MEDICINE [address] [place] [address] Name, MD Rolf [address] [place] [address] 529[address] documented as of this encounter Goals Goal [...] documented as of this encounter Care Teams Beef Grader Relationship Specialty Start Date End Date Rolf Gamble MD [address] [place] [address] PCP - General Family Medicine 10/21/17 Martine Broussard, PharmD [address] [place] [address] Pharmacist Internal Medicine 04/20/23 Martine Broussard PharmD [address] [place], [place] [address]uel [place] [address] Pharmacist Internal Medicine 04/20/23 08/11/23 documented as of this encounter
--- OUTSIDE RECORDS SUMMARY | 2024-07-20 11:29 | XMS_ITS | Clinical Summary ---
Author Organization [employer] Address [address] [place] [address] Care Team Providers Care Catheter Builder Name Role Phone Poppy Hernandez MD Primary [...] Td Vaccines (2 - Td or Tdap) 09/24/2021 09/25/2011 Abdominal Aortic Aneurysm (A AA) Screen [...] age to complete this topic Care Teams Catheter Builder Relationship Specialty Start Date End Date Poppy Hernandez MD [address] [place] [address] PCP - General Internal Medicine 06/03/17
--- OUTSIDE RECORDS SUMMARY | 2024-07-20 11:29 | XMS_ITS | Encounter Summary ---
Author Organization [employer] Address [address] [place] [address] 7 [place] [address] Care Team Providers Care Metal Box Maker Name Role Phone Name, Rolf PARKS Primary Care Provider [phone] Martine Broussard PharmD Unavailable [phone] Reason for Visit * Reason Comments Med Refill Encounter Details Date Type Department Care Team ([facility] st Contact Info) Description 05/31/2024 Refill [facility] MEDICINE 230 [place], [place] [phone] Name, MD Rolf 230 [place] [address] Osteoarthritis of both knees, unspecified osteoarthritis type [...] Description 08/18/2024 10:00 AM EDT Telemedicine [facility] MEDICINE [address] [place] [address] Karla Lewis RN 08/18/2024 11:15 AM EDT Office Visit [facility] MEDICINE [address] [place] [address] 82023 Name, MD Rolf [address] [place] [address] 8[address] documented as of this encounter Goals Goal [...] documented as of this encounter Care Teams Metal Box Maker Relationship Specialty Start Date End Date Name, MD Rolf 230 [place] [address] PCP - General Family Medicine 10/21/17 Martine Broussard PharmD 230 [place] [address] Pharmacist Internal Medicine 04/20/23 documented as of this encounter
--- OUTSIDE RECORDS SUMMARY | 2024-07-20 11:29 | XMS_ITS | Encounter Summary ---
Author Organization [employer] Address [address] [place] [address] 7 [place] [address] Care Team Providers Care Medical Practice Administrator Name Role Phone Name, Rolf PARKS Primary Care Provider [phone] Matrine Broussard PharmD Unavailable [phone] Reason for Visit * Reason Onset Date Comments Med Refill 04/03/2024 Encounter Details Date Type Department Care Team (Late st Contact Info) Description 04/03/[address] [facility] MEDICINE 230 [place], [place] [phone] Name, MD Rolf 230 [place] [address] Med Refill Social History Tobacco Use Types [...] 10:43 AM EST Medication was sent to [facility] #[id number] on 03/06/24 #30 with 3 refills. * Telephone Encounter - Meli Henao - 04/03/2024 10:42 AM EST TC from pt requesting medication refill. Medications needing refill : traZODone (Desyrel) 50 MG tablet To be sent to: [id number] [place] [address] [address] documented in this encounter Plan of Treatment Upcoming Encounters Date Type Department Care Team ([facility] st Contact Info) Description 08/18/2024 10:[address] [facility] MEDICINE [address] [place] [address]13 Karla Lewis RN 08/18/2024 11:15 AM EDT Office Visit [facility] MED[facility]INE [address] [place] [address]40 NameRolf MD [address] [place] [address] documented as of this encounter Goals Goal [...] as of this encounter Care Teams Medical Practice Administrator Relationship Specialty Start Date End Date NameRolf MD [address] [place] [address] PCP - General Family Medicine 10/21/17 Martine Broussard, PharmD [address] [place] [address] Pharmacist Internal Medicine 04/20/23 documented as of this encounter
--- OUTSIDE RECORDS SUMMARY | 2024-07-20 11:29 | XMS_ITS | Encounter Summary ---
Author Organization [employer] Address 75 [facility] 7t [place] [address] Care Team Providers Care Financial Examiner Name Role Phone Name, Rolf PARKS Primary Care Provider [phone] Puia, Martine PharmD Unavailable [phone] Puia, Martine PharmD Unavailable Reason for Visit * Reason Comments Med Refill Encounter Details Date Type Department Care Team (Late st Contact Info) Description 06/28/2023 Refill [facility] MEDICINE 230 [place], [place] [phone] Name, MD Rolf 230 [place], [place] [phone] Osteoarthritis of knee, unspecified laterality, unspecified osteoarthritis [...] AM EDT Telemedicine [facility] MEDICINE [address] [place] [address] Karla Lewis RN 08/18/2024 11:15 AM EDT Office Visit [facility] MEDICINE [address] [place] [address] 0[address] Name, MD Rolf [address] [place] [address] documented as of this encounter Goals Goal [...] as of this encounter Care Teams Financial Examiner Relationship Specialty Start Date End Date NameRolf MD [address] [place] [address] 52724 PCP - General Family Medicine 10/21/17 Puia, Martine, PharmD 230 [place] [address] Pharmacist Internal Medicine 04/20/23 Martine Broussard, GarrettD 230 [place] [address] Pharmacist Internal Medicine 04/20/23 08/11/23 documented as of this encounter
--- OUTSIDE RECORDS SUMMARY | 2024-07-20 11:29 | XMS_ITS | Encounter Summary ---
Author Organization [employer] Address [address] [facility] 7 [place] [address] Care Team Providers Care Geophysical Computer Name Role Phone Name, Rolf PRAKS Primary Care Provider [phone] Martine Broussard PharmD Unavailable [phone] Reason for Visit * Reason Comments Med Refill Encounter Details Date Type Department Care Team ([facility] st Contact Info) Description 03/29/2024 Refill [facility] MEDICINE 230 [place], [place] [phone] Vivian Barajas, ANP 230 [place] [address] Diabetes mellitus type 2 with neurological manifestations [...] Info) Description 08/18/2024 10:00 AM EDT Telemedicine [facility] MEDICINE [address] [place] [address] 47847 Karla Lewis RN 08/18/2024 11:15 AM EDT Office Visit [facility] MED[facility]INE [address] [place] [address] 53[address] Name, MD Rolf [address] [place] [address] 9[address] documented as of this encounter Goals Goal [...] documented as of this encounter Care Teams Geophysical Computer Relationship Specialty Start Date End Date Name, MD Rolf 230 [place] [address] PCP - General Family Medicine 10/21/17 Martine Broussard PharmD 230 [place] [address] Pharmacist Internal Medicine 04/20/23 documented as of this encounter
--- OUTSIDE RECORDS SUMMARY | 2024-07-20 11:29 | XMS_ITS | Encounter Summary ---
Author Organization [employer] Address [address] [place] [address] 7t [place] [address] Care Team Providers Care Paralegal Legal Secretary Name Role Phone Name, Rolf PARKS Primary Care Provider [phone] Martine Broussard PharmD Unavailable Reason for Visit * Reason Onset Date Comments Med Refill 07/12/2024 Encounter Details Date Type Department Care Team (Late st Contact Info) Description 07/12/2024 Refill [facility] MEDICINE 230 [place], [place] [phone] Name, MD Rolf 230 [place], [place] [phone] Chronic insomnia (Primary Dx); S/P TKR (total knee replacement), left Social [...] encounter Miscellaneous Notes * Telephone Encounter - Funmi Benjamin - 07/12/2024 2:51 PM EDT TC from pt requesting medication refill. Medications needing refill : clonazePAM (KlonoPIN) 2 MG tablet To be sent to: [id number] [place] [address] [address] documented in this encounter Plan of Treatment Upcoming Encounters Date Type Department Care Team (Late st Contact Info) Description 08/18/2024 10:00 AM EDT Telemedicine [facility] MEDICINE [address] [place] [address] Karla Lewis RN 08/18/2024 11:15 AM EDT Office Visit [facility] MED[facility] [address] [place] [address] 30868 Name, MD Rolf [address] [place] [address] documented as of this encounter Goals Goal Patient Goal Type Associated Problems Recent Progress Patient-Stated? Author Hemoglobin A1c < 7 Result Component 6.6( 5 11:14 AM EST) No CarlosiaLanceMartine, PharmD Record your blood sugar as directed Result Component No Lance Broussardyssa, PharmD documented as of this encounter Visit Diagnoses Diagnosis Chronic insomnia- Primary Insomnia, unspecified S/P TKR (total knee replacement), left documented in this encounter Additional Health Concerns Assessment Noted Time PHQ-9 Depression Total Score: 0 12/06/19 24 10:09 AM EDT documented as of this encounter Care Teams Paralegal Legal Secretary Relationship Specialty Start Date End Date Name, MD Rolf [address] [place] [address] PCP - General Family Medicine 10/21/17 Martine Broussard, PharmD [address] [place] [address] Pharmacist Internal Medicine 04/20/23 documented as of this encounter
--- OUTSIDE RECORDS SUMMARY | 2024-07-20 11:29 | XMS_ITS | Encounter Summary ---
Author Organization [employer] Address 75 [facility] 7 [place] [address] Care Team Providers Care Slots Manager Name Role Phone NameRolf MD Primary Care Provider [phone] Martine Broussard PharmD Unavailable [phone] Reason for Visit * Reason Onset Date Comments Durable Medical Equipment 04/05/2024 Encounter Details Date Type Department Care Team (Late st Contact Info) Description 04/05/2024 Telephone [facility] MEDICINE 230 [place], [place] [phone] Name, MD Rolf 230 [place] [address] Durable Medical Equipment Social History Tobacco Use [...] surgery. Pt denies any trouble defers a [facility] appt. Pleasereview and advise, thank you. Tc from pt daughter requesting a Portable toilet due to him falling yesterday and not reaching the bathroom. If any questions contact pt Daughter at [phone] * Telephone Encounter - Kip Grant - 04/05/2024 3:03 PM EST Tc from pt daughter requesting a Portable toilet due to him falling yesterday and not reaching the bathroom. If any questions contact pt Daughter at [phone] documented in this encounter Plan of Treatment Upcoming Encounters Date Type Department Care Team (Late st Contact Info) Description 08/18/2024 10:00 AM EDT Telemedicine [address] [address] Karla Lewis RN 08/18/2024 11:15 AM EDT Office Visit [facility] MEDICINE [address] [place] [address] Name, MD Rolf [address] [place] [address] documented as of this encounter Goals Goal [...] documented as of this encounter Care Teams Slots Manager Relationship Specialty Start Date End Date Name, MD Rolf [address] [place] [address] PCP - General Family Medicine 10/21/17 Martine Broussard, PharmD [address] [place] [address] Pharmacist Internal Medicine 04/20/23 documented as of this encounter
--- OUTSIDE RECORDS SUMMARY | 2024-07-20 11:29 | XMS_ITS | Encounter Summary ---
Author Organization [employer] Address 75 [facility] 7t [place] [address] Care Team Providers Care Operations Technician Name Role Phone Name, Rolf PARKS Primary Care Provider [phone] Puia, Martine PharmD Unavailable Puia, Martine PharmD Unavailable [phone] Reason for Visit * Reason Comments Med Refill Encounter Details Date Type Department Care Team (Late st Contact Info) Description 07/16/2023 Refill [facility] MEDICINE 230 [place], [place] [phone] Name, MD Rolf 230 [place], [place] [phone] Osteoarthritis of knee, unspecified laterality, unspecified osteoarthritis [...] 10:00 AM EDT Telemedicine [facility]ICINE [address] [place] [address] Karla Lewis RN 08/18/2024 11:15 AM EDT Office Visit [facility] [address] [place] [address]35 Name, MD Rolf [address] [place] [address] documented as of this encounter Goals Goal [...] documented as of this encounter Care Teams Operations Technician Relationship Specialty Start Date End Date NameRlof MD [address] [place] [address] PCP - General Family Medicine 10/21/17 Puia, Martine, PharmD 230 [place] [address] Pharmacist Internal Medicine 04/20/23 Martine Broussard, GarrettD 230 [place] [address] Pharmacist Internal Medicine 04/20/23 08/11/23 documented as of this encounter
--- OUTSIDE RECORDS SUMMARY | 2024-07-20 11:29 | XMS_ITS | Encounter Summary ---
Author Organization [employer] Address [address] [place] [address] 7 [place] [address] Care Team Providers Care Pit Worker Power Shovel Name Role Phone Name, Rolf PARKS Primary Care Provider [phone] Martine Broussard PharmD Unavailable Reason for Visit * Reason Onset Date Comments FYI 05/04/2024 Encounter Details Date Type Department Care Team ([facility] st Contact Info) Description 05/04/2024 Telephone [facility] [address] [place], [place] [phone] Name, MD Rolf [address] [place], [place] [phone] FYI Social History Tobacco Use Types Packs/Day [...] already scheduled for follow up on 05/31/24. [facility] notes sent to medical records. * Telephone Encounter - Funmi Benjamin - 05/04/2024 4:01 PM EST Tc from pt daughter to report pt went to [facility] on 05/03. A knee replacement was [...] AM EDT Telemedicine [facility] [address] [place] [phone] Karla Lewis, DARYN 08/18/2024 11:15 AM EDT Office Visit [facility] [address] [place] [phone] Rolf Gamble MD [address] [place] [address] documented as of this encounter Goals Goal [...] documented as of this encounter Care Teams Pit Worker Power Shovel Relationship Specialty Start Date End Date NameRolf MD [address] [place] [phone] PCP - General Family Medicine 10/21/17 Martine Broussard, PharmD [address] [place] [address] Pharmacist Internal Medicine 04/20/23 documented as of this encounter
--- OUTSIDE RECORDS SUMMARY | 2024-07-20 11:29 | XMS_ITS | Encounter Summary ---
Author Organization [employer] Address [address] [facility] 7t [place] [address] Care Team Providers Care Principal Consultant Name Role Phone Name, Rolf PARKS Primary Care Provider Martine Broussard PharmD Unavailable [phone] Reason for Visit * Reason Comments Med Refill Encounter Details Date Type Department Care Team (Late st Contact Info) Description 04/03/2024 Refill [facility] [address] [place] [address] Marcela Ruiz NP [address] [place] [address] Osteoarthritis of knee, unspecified laterality, unspecified osteoarthritis [...] EDT Telemedicine [facility] [address] [place] [phone] Karla Lewis RN 08/18/2024 11:15 AM EDT Office Visit [facility] [address] [place] [phone] Name, MD Rolf [address] [place] [phone] documented as of this encounter Goals Goal [...] documented as of this encounter Care Teams Principal Consultant Relationship Specialty Start Date End Date Name, MD Rolf [address] [place] [address] PCP - General Family Medicine 10/21/17 Martine Broussard PharmD [address] [place] [address] Pharmacist Internal Medicine 04/20/23 documented as of this encounter
--- OUTSIDE RECORDS SUMMARY | 2024-07-20 11:29 | XMS_ITS | Encounter Summary ---
Author Organization [employer] Address [address] [facility] 7 [place] [address] Care Team Providers Care Incubator Tender Name Role Phone Name, Rolf PARKS Primary Care Provider Martine Broussard PharmD Unavailable [phone] Reason for Visit * Reason Onset Date Comments Med Refill 05/01/2024 Encounter Details Date Type Department Care Team (Late st Contact Info) Description 05/01/2024 Telephone [facility] [address] [place], [place] [phone] Name, MD Rolf [address] [place], [place] [phone] Med Refill Social History Tobacco Use Types [...] 2:20 PM EST Medication was sent to [facility] #[id number] on 03/06/24 #30 with 3 refills. * Telephone Encounter - Osmar Gonsalez - 05/01/2024 2:15 PM EST TC from pt requesting medication refill. Medications needing refill : traZODone (Desyrel) 50 MG tablet To be sent to: [id number] - [place] [address] [address] [facility] [address] documented in this encounter Plan of Treatment Upcoming Encounters Date Type Department Care Team (Late st Contact Info) Description 08/18/2024 10:00 AM EDT Telemedicine [facility] [address] [place] [phone] Karla Lewis RN 08/18/2024 11:15 AM EDT Office Visit [facility] [address] [place] [phone] NameRolf MD [address] [place] [phone] documented as of this encounter Goals Goal [...] documented as of this encounter Care Teams Incubator Tender Relationship Specialty Start Date End Date NameRolf MD [address] [place] [phone] PCP - General Family Medicine 10/21/17 Martine Broussard, PharmD [address] [place] [phone] Pharmacist Internal Medicine 04/20/23 documented as of this encounter
--- OUTSIDE RECORDS SUMMARY | 2024-07-20 11:29 | XMS_ITS | Encounter Summary ---
Author Organization [employer] Address [address] [place] [address] 7 [place] [address] Care Team Providers Care Earthmoving Plant Operator Name Role Phone Name, Rolf PARKS Primary Care Provider [phone] Martine Broussard PharmD Unavailable [phone] Reason for Visit * Reason Onset Date Comments Med Refill 07/14/2024 Encounter Details Date Type Department Care Team (Late st Contact Info) Description 07/14/2024 Refill [facility] [address] [place], [place] [phone] Name, MD Rolf [address] [place] [address] Chronic insomnia Social History Tobacco Use Types Packs/Day Years [...] the past 12 months, has t he [employer], gas, oil or water company threatened to [...] encounter Miscellaneous Notes * Telephone Encounter - Kip Grant - 07/14/2024 1:42 PM EDT TC from pt requesting medication refill. Medications needing refill : clonazePAM (KlonoPIN) 2 MG tablet To be sent to: [facility] [address] [place] [address] [address] [facility] documented in this encounter Plan of Treatment Upcoming Encounters Date Type Department Care Team (Late st Contact Info) Description 08/18/2024 10:00 AM EDT Telemedicine [facility] [address] [place] [address] [phone] Karla Lewis RN 08/18/2024 11:15 AM EDT Office Visit [facility] [address] [place] [phone] Name, MD Rolf [address] [place] [phone] documented as of this encounter Goals Goal Patient Goal Type Associated Problems Recent Progress Patient-Stated? Author Hemoglobin A1c < 7 Result Component 6.6( 5 11:14 AM EST) No Martine Broussard PharmD Record your blood sugar as directed Result Component No Martine Broussard PharmD documented as of this encounter Visit Diagnoses Diagnosis Chronic insomnia Insomnia, unspecified documented in this encounter Additional Health Concerns Assessment Noted Time PHQ-9 Depression Total Score: 0 12/06/19 24 10:09 AM EDT documented as of this encounter Care Teams Earthmoving Plant Operator Relationship Specialty Start Date End Date Name, MD Rolf [address] [place] [address] PCP - General Family Medicine 10/21/17 Martine Broussard PharmD [address] [place] [address] Pharmacist Internal Medicine 04/20/23 documented as of this encounter
--- OUTSIDE RECORDS SUMMARY | 2024-07-20 11:29 | XMS_ITS | Clinical Summary ---
Author Organization [employer] Address [address] [facility] 7[address] [place] [address] Care Team Providers Care Cementer Helper Name Role Phone Name, Rolf PARKS Primary Care Provider [phone] Martine Broussard PharmD Unavailable [phone] Allergies No known active allergies Medications escitalopram (Lexapro) 10 MG tabletIndications :Depression with anxiety TAKE 1 TABLET(10 MG) BY MOUTH IN THE MORNING 30 tablet 2 023 Active Blood Glucose Monitoring Suppl (Twyxt TOUCH ULTRA 2) w/Device kitIndications:Ty pe 2 diabetes mellitus with hyperglycemia, without long-term current use of insulin (CMS/HCC) Use once a day 1 kit 024 Active Spacer/Aero-Holdi ng Chambers device Use daily with MDI 1 each 024 Active albuterol (2.5 MG/3ML) 0.083% nebulizer solution Take 3 mL (2.5 mg) by nebulization every 6 (six) hours if needed for wheezing. 75 mL 11 024 Active metFORMIN (Glucophage) 1000 MG tabletIndications :Type [...] a day 100 each 5 024 Active glucose blood (SlideShare Ultra) test stripIndications: Type 2 diabetes mellitus with hyperglycemia, without long-term current use of insulin ([facility]) Use once a day 50 each 5 024 2024 Active Fluticasone-Salme terol 500-50 MCG/ACT aerosol powderIndications :COPD exacerbation ([facility]) INHALE ONE PUFF BY MOUTH TWICE A DAY (BULK) 60 each 5 Active Diclofenac Sodium 1 % gelIndications:Os teoarthritis of knee, unspecified laterality, unspecified osteoarthritis type APPLY 4 GRAMS TO THE AFFECTED KNEE TWICE A DAY (BULK) 100 g 3 Active atorvastatin (Lipitor) 40 MG tabletIndications :Type 2 diabetes mellitus with hyperglycemia, without long-term current use of insulin ([facility]) Take 1 tablet (40 mg) by mouth Once per day. 30 tablet 11 024 2024 Active Umeclidinium [place] (Incruse Ellipta) 62.5 MCG/ACT aerosol powder Inhale 1 Act (62.5 mcg) Once per day. Inhale 1 each in the morning. 30 each 11 024 2024 Active albuterol 108 (90 Base) MCG/ACT inhalerIndication s:Abnormal chest x-ray,Tobacco use inhale 2 puff by inhalation route every 4 - 6 hours as needed 18 g 11 Active omeprazole (PriLOSEC) [address] capsuleIndication s:Iron deficiency anemia, unspecified iron deficiency anemia type take 1 capsule by oral route every day 30 minutes to 1 hour before a meal 30 capsule 11 Active Acetaminophen Extra Strength 500 MG tabletIndications :Osteoarthritis of knee, unspecified laterality, unspecified osteoarthritis type TAKE ONE TABLET BY MOUTH EVERY 8 HOURS NEEDED FOR PAIN (VIAL) 90 tablet 3 Active Dulaglutide 4.5 MG/0.5ML solution auto-injector Inject 0.5 mL (4.5 mg) under the skin 1 (one) time per week. Inject 4.5 mg under the skin 1 (one) time per week. 2 mL 11 024 2024 Active Eliquis 2.5 MG tablet Take 1 tablet by mouth 2 times daily. Active losartan (Cozaar) 25 MG tabletIndications :Chronic HFrEF (heart failure with reduced ejection fraction) ([facility]) Take 1 tablet (25 mg) by mouth Once per day. 30 tablet 11 025 2025 Active empagliflozin (Jardiance) 10 MGIndications:Chr onic HFrEF (heart failure with reduced ejection fraction) ([facility]) Take 1 tablet (10 mg) by mouth Once per day. 30 tablet 11 025 2025 Active traZODone (Desyrel) 50 MG tabletIndications :Osteoarthritis of both knees, unspecified osteoarthritis type TAKE 1 TABLET BY MOUTH AT BEDTIME 30 tablet 3 025 Active oxyCODONE-acetami nophen (Percocet) 5-325 MG tabletIndications :S/P TKR (total knee replacement), left Take 1 tablet by mouth 2 times daily for 28 days. Do not start before June 29, 2024. 56 tablet 025 2024 Active FeroSul 325 (65 Fe) MG tabletIndications :Iron deficiency anemia, unspecified iron deficiency anemia type TAKE ONE TABLET BY MOUTH EVERY OTHER DAY (VIAL) 15 tablet 1 025 Active gabapentin (Neurontin) 300 MG capsuleIndication s:S/P TKR (total knee replacement), left TAKE ONE CAPSULE BY MOUTH TWICE A DAY (VIAL) 60 capsule 025 Active clonazePAM (KlonoPIN) 2 MG tabletIndications :Chronic insomnia TAKE ONE TABLET BY MOUTH EVERY EVENING AT BEDTIME NEEDED (VIAL) 28 tablet 025 Active FeroSul 325 (65 Fe) MG tabletIndications :Iron deficiency anemia, unspecified iron deficiency anemia type TAKE ONE TABLET BY MOUTH EVERY OTHER DAY (VIAL) 15 tablet 5 024 2024 Discontinued traZODone (Desyrel) 50 MG tabletIndications :Osteoarthritis of both knees, unspecified osteoarthritis type TAKE 1 TABLET BY MOUTH AT BEDTIME 30 tablet 3 024 2024 Discontinued(R eorder (will not trigger notification to Pharmacy)) clonazePAM (KlonoPIN) 2 MG tabletIndications :S/P TKR (total knee replacement), left TAKE ONE TABLET BY MOUTH EVERY EVENING AT BEDTIME NEEDED (VIAL) 28 tablet 025 2024 Discontinued(R eorder (will not trigger notification to Pharmacy)) oxyCODONE-acetami nophen (Percocet) 5-325 MG tabletIndications :S/P TKR (total knee replacement), left Take 1 tablet by mouth 2 times daily for 28 days. 56 tablet 025 2024 Discontinued(R eorder (will not trigger notification to Pharmacy)) gabapentin (Neurontin) 300 MG capsuleIndication s:S/P TKR (total knee replacement), left TAKE ONE CAPSULE BY MOUTH TWICE A DAY (VIAL) 60 capsule 025 2024 Discontinued ibuprofen 600 MG tablet Take 1 tablet (600 mg) by mouth if needed in the morning, at noon, and at bedtime for mild pain for up to 10 days. 30 tablet 025 2024 Discontinued(R eorder (will not trigger notification to Pharmacy)) ibuprofen 600 MG tabletIndications :Acute pain of left knee Take 1 tablet (600 mg) by mouth if needed in the morning, at noon, and at bedtime for mild pain for up to 10 days. 30 tablet 025 2024 clonazePAM (KlonoPIN) 2 MG tabletIndications :Chronic insomnia TAKE ONE TABLET BY MOUTH EVERY EVENING AT BEDTIME NEEDED (VIAL) 28 tablet 025 2024 Discontinued(R eorder (will not trigger notification to Pharmacy)) Active Problems Problem Noted Date Diagnosed Date Chronic HFrEF (heart failure with reduced ejection fraction) 06/09/2024 Overview (06/09/2024): [address] [address] Cardiology Report Signed Patient: Hong Gutierrez MR#: [id number] : 1955 Acct:[id number] Age/Sex: 68 / M ADM Date: 06/07/24 Loc: [facility] Attending Dr: Rolf Gamble MD Ordering Physician: [...] Rate: bpm BP: 110 / 70 mmHg Clinical Molecular Geneticist: MATTHIAS Referring MD: Rolf Gamble MD Specialty Cook: Beck Cruz MD Symptoms: CARDIOMEGALY I51.7 Study Quality: Adequate with contrast ECG Rhythm: Sinus Conclusions: - 1. Qxmx-ps-[id number] LV systolic dysfunction with LVEF of 40-45% [...] 5.90 PHT: 39.00 MVA PHT: 5.64 Decel [place]: 3.60 Aortic Valve AoV Pk Manish: 1.64 [...] Other Vendor System with Status of Final Beck Cruz MD electronically signed on 06/08/2024 10:36:57 AM with status of Final S/P TKR (total knee replacement), left Overview (05/31/2024): [place] [facility]/20/2023 Assessment & Plan (07/20/2023 2:13 [...] on chronic knee pain -Continue following with [facility], plan for viscosupplementation once approved through health insurance -Describes pain as severe, not sufficiently responding to APAP and tramadol. -Requesting in office IM toradol. History of resolved GI bleed, reports recent eval through [facility] with endoscopy and colonoscopy that were [...] Encounters Date Type Department Care Team Description 07/14/[address] [facility] [address] [place] [address] Rolf Gamble MD Chronic insomnia 07/12/[address] [facility] [address] [place] [address] Rolf Gamble MD Chronic insomnia (Primary Dx); S/P TKR (total knee replacement), left 07/12/[address] 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 [address] [place] [address] Rolf Gamble MD S/P TKR (total knee replacement), left 07/03/[address] [facility] [address] [place] [address] Rolf Gamble MD Durable Medical Equipment 07/02/2024 Refill [facility] [address] [place] [address] Rolf Gamble MD Iron deficiency anemia, unspecified iron deficiency anemia type 06/30/[address] [facility] [address] [place] [address] Rolf Gamble MD Medication Question 06/29/2024 Telephone [facility] [address] [place] [address] NameRolf MD Medication Question 06/28/2024 Refill [facility] [address] [place] [address] Rolf Gamble MD Acute pain of left knee (Primary Dx) 06/27/2024 Refill [facility] [address] [place] [address] Karla Lewis, RN S/P TKR (total knee replacement), left 06/27/2024 Telephone [facility] [address] [place] [address] NameRolf MD FYI 06/27/2024 Telephone [facility] [address] [place] [address] NameRolf MD Nurse Triage 06/26/2024 Refill [facility] [address] [place] [address] NameRolf MD Osteoarthritis of both knees, unspecified osteoarthritis type 06/23/2024 Telephone [facility] [address] [place] [address] NameRolf MD Nurse Triage 06/21/2024 Refill [facility] [address] [place] [address] NameRolf MD S/P TKR (total knee replacement), left; Anxiety 06/13/2024 Refill [facility] [address] [place] [address] NameRolf MD S/P TKR (total knee replacement), left; Anxiety 06/09/2024 9:30 AM EST Telemedicine [facility] [address] [place] [address] 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 [address] [place] [address] Rolf Gamble MD Iron deficiency anemia, unspecified iron deficiency anemia type (Primary Dx); Pulmonary nodule; Former smoker; Cardiomegaly; Type 2 diabetes mellitus with hyperglycemia, without long-term current use of insulin ([facility]); S/P TKR (total knee replacement), left 05/31/[address] [facility] [address] [place] [address] Rolf Gamble MD Osteoarthritis of both knees, unspecified osteoarthritis type 05/24/[address] [facility] [address] [place] [address] Rolf Gamble MD Osteoarthritis of both knees, unspecified osteoarthritis type 05/23/[address] [facility] [address] [place] [address] Felicia Law NP Anxiety 05/23/[address] [facility] [address] [place] [address] Stefanie Mcneal MD Durable Medical Equipment (L&C Form) 05/18/[address] [facility] [address] [place] [address] Rolf Gamble MD Anxiety 05/17/[address] [facility] [address] [place] [address] Rolf Gamble MD Medication Question 05/08/[address] [facility] [address] [place] [address] Gerri Carrillo MA DME-commode 05/04/[address] [facility] [address] [place] [address] Rolf Gamble MD FYI 05/02/[address] [facility] [address] [place] [address] Rolf Gamble MD Osteoarthritis of knee, unspecified laterality, unspecified osteoarthritis type; Anxiety 05/01/[address] [facility] [address] [place] [address] Rolf Gamble MD Durable Medical Equipment 05/01/[address] [facility] [address] [place] [address] Rolf Gamble MD Med Refill 04/27/[address] [facility] [address] [place] [address] Rolf Gamble MD Durable Medical Equipment 04/27/[address] [facility] [address] [place] [address] Rolf Gamble MD Osteoarthritis of both knees, unspecified osteoarthritis type 04/25/[address] [facility] [address] [place] [address] Rolf Gamble MD Prior Authorization 04/25/[address] [facility] [address] [place] [address] Rolf Gamble MD Medication Question 04/24/[address] [facility] [address] [place] [address] Marcela Ruiz NP Osteoarthritis of knee, unspecified laterality, unspecified osteoarthritis type 04/24/[address] [facility] [address] [place] [address] Vivian Barajas ANP Diabetes mellitus type 2 with neurological manifestations ([facility]) 04/21/2024 Refill [facility] [address] [place], [place] [phone] NameRolf MD Type 2 diabetes mellitus with hyperglycemia, without long-term current use of insulin ([facility]); Abnormal chest x-ray; Tobacco use; Iron deficiency anemia, unspecified iron deficiency anemia type; Osteoarthritis of knee, unspecified laterality, unspecified osteoarthritis type from Last 3 Months Immunizations Name Administration [...] 10:00 AM EDT Telemedicine [facility] [address] [place] [address] Karla Lewis RN 08/18/2024 11:15 AM EDT Office Visit [facility] [address] [place] [address] Name, MD Rolf [address] [place] [address] Health Maintenance Due Date Last Done Comments CT Colonography 1955 FIT DNA/Cologuard 1955 FIT 1955 FOBT 1955 Sigmoidoscopy 1955 Hepatitis C Screening 1974 Diabetes: Foot Exam 02/11/2024 02/10/2023, 02/10/2023, 02/10/2023, Additional history exists Hepatitis B Vaccines (3 of 3 - 19+ 3-dose series) 02/12/2024 09/10/2023, 08/13/2023 SDOH Screening 11/25/2024 11/26/2023 Diabetes: Hemoglobin A1C 11/28/2024 025, 03/06/2024, 12/06/2023, Additional history exists Alcohol/Substance Use Screening 12/05/2024 12/06/2023 Depression Screening [...] Procedure Name Priority Date/Time Associated Diagnosis Comments BASIC METABOLIC PANEL Routine 06/12/2024 2:10 PM EST Chronic HFrEF (heart failure with reduced ejection fraction) ([facility]) POCT HEMOGLOBIN Routine 05/31/2024 11:27 AM EST Iron deficiency anemia, unspecified iron deficiency anemia type POCT GLYCATED HEMOGLOBIN, TOTAL Routine 05/31/2024 11:14 AM EST Type 2 diabetes mellitus with hyperglycemia, without long-term current use of insulin ([facility]) POCT GLUCOSE Routine 05/31/2024 11:13 AM EST Type 2 diabetes mellitus with hyperglycemia, without long-term current use of insulin ([facility]) ALBUMIN, RANDOM URINE W/CREATININE Routine 12/13/2023 8:44 AM EDT Type 2 diabetes mellitus with hyperglycemia, without long-term current use of insulin ([facility]) Osteoarthritis of left knee, unspecified osteoarthritis type LIPID PANEL, STANDARD Routine 12/13/2023 8:05 AM EDT Type 2 diabetes mellitus with hyperglycemia, without long-term current use of insulin ([facility]) Osteoarthritis of left knee, unspecified osteoarthritis type HM COLONOSCOPY Routine 06/26/2022 from Last 3 Months or Most Recently Relevant to Health Maintenance Results * (ABNORMAL) Basic Metabolic Panel (06/12/2024 2:10 PM EST) Sodium 140 135 - 145 mmol/L [facility] Potassium 4.1 3.3 - 5.1 mmol/L [facility] Chloride 102 96 - 108 mmol/L [facility] Carbon Dioxide 28 22 - 29 mmol/L [facility] Anion Gap 14 12 - 20 [facility] Urea Nitrogen (BUN) 19(H) 9 - 16 mg/dL [facility] Creatinine, Serum 1.16 0.5 - 1.4 mg/dL [facility] Estimated Glomerular Filt Rate >60 [facility] Comment:Chronic Kidney Disea se: Estimated GFR < 60 mL/min/[id number] Kidney Disease: Estimated GFR < 15 mL/min/1.73m2 Glucose 180(H) 60 - 115 mg/dL [facility] Calcium 9.7 8.4 - 10.2 mg/dL [facility] Blood Venous blood specimen / Unknown 06/12/2024 2:10 PM EST 06/12/2024 4:02 PM EST us Rolf Gamble MD LAB BLOOD ORDERABLES Final Resul t [facility] [address] [place] [phone] * POCT Hemoglobin (05/31/2024 11:27 AM EST) Hemoglobin 13.1 13.0 - 17.0 QC Media Lot # [id number] Lot# Expiration Date 4, Blood 05/31/2024 11:2 7 AM EST us Rolf Gamble MD POINT OF CARE TEST ENTER/EDIT OR DERABLES Final Result * (ABNORMAL) POCT HGB A1C (05/31/2024 11:14 AM EST) Hemoglobin A1C 6.6(A) 4.0 - 6.0 % QC Media Lot # [id number] Lot# Expiration Date 71,646 Blood 05/31/2024 11:1 4 AM EST us Rolf Gamble MD POINT OF CARE TEST ENTER/EDIT OR DERABLES Final Result * POCT Glucose (05/31/2024 11:13 AM EST) Glucose Blood, POC 166 60 - 200 mg/dL QC Media Lot # [id number] Lot# Expiration Date Blood Capillary blood specimen / Unknown 05/31/2024 11:13 AM EST us Rolf Gamble MD POINT OF CARE TEST ENTER/EDIT OR DERABLES Final Result * (ABNORMAL) Albumin, Random Urine W/Creatinine (12/13/2023 8:44 AM EDT) Creatinine, Urine 102.20 mg/dL [facility] Microalbumin Urine 37.0 mg/L [facility] Microalbum Creatinine Ratio Ur 36.2(H) <30 ug/mg cr [facility] Comment:Albumin/Creatinine R atio Reference Ranges: Normal: < 30 ug/mg creatinine Microalbuminuria: 30 - 300 ug/mg creatinineClinical Albuminuria: > 300 ug/mg creatinine Urine (Urine, Random) 12/13/2023 8:44 AM EDT 12/13/2023 10:54 AM EDT us Rolf Gamble MD LAB URINE ORDERABLES Final Resul t [facility] [address] [place] [phone] * (ABNORMAL) Lipid Panel, Standard (12/13/2023 8:05 AM EDT) Triglycerides 122 <150 mg/dL [facility] Comment:Desirable Triglyceri de: less than 150 mg/dLBorderline High Triglyceride 150-199 mg/dLHigh Triglyceride: 200-499 mg/dLVery High Triglyceride: greater than or equal to 5OO mg/dL Cholesterol 129 <200 mg/dL [facility] Comment:Desirable Cholestero l: less than 200 mg/dLBorderline High Cholesterol: 200-239 mg/dLHigh Cholesterol: greater than 239 mg/dL LDL Cholesterol Calculated 76 <100 mg/dL [facility] Comment:Desirable LDL: less than 100 mg/dLNear Optimal/Above Optimal LDL: 110- 129 mg/dLBorderline High LDL: 130-159 mg/dLHigh LDL: 160-189 mg/dLVery High LDL: greater than or equal to 190 mg/dL HDL Cholesterol 29(L) >40 mg/dL [facility] Comment:Desirable HDL: great er than 40 mg/dL Note: This HDL assay may give artificially low results in patients with liver disease. Blood Venous blood specimen / Unknown 12/13/2023 8:05 AM EDT 12/13/2023 10:59 AM EDT us Rolf Name LAB BLOOD ORDERABLES Final Resul t [facility] [address] [place] [address] [phone] * Colonoscopy (06/26/2022) Colonoscopy PERFORMED Comment:REPEAT IN 3 YEARS Historical Provider HEALTH MAINTENANCE Final Result from Last 3 Months or Most Recently Relevant to Health Maintenance [place] [address] [place] [id number] - [employer] Care Teams Cementer Helper Relationship Specialty Start Date End Date Name, MD Rolf [address] [place] [address] PCP - General Family Medicine 10/21/17 Martine Broussard PharmD [address] [place] [address] Pharmacist Internal Medicine 04/20/23
--- OUTSIDE RECORDS SUMMARY | 2024-07-20 11:29 | XMS_ITS | Encounter Summary ---
Author Organization [employer] Address [address] [facility] [address] [place] [address] Care Team Providers Care Volunteer Assistant Name Role Phone Name, Rolf PARKS Primary Care Provider [phone] Puia, Martine PharmD Unavailable [phone] Puia, Martine PharmD Unavailable [phone] Reason for Visit * Reason Comments Med Refill Encounter Details Date Type Department Care Team (Late st Contact Info) Description 06/22/2023 Refill [facility] [address] [place], [place] [phone] Name, MD Rolf [address] [place], [place] [phone] Osteoarthritis of knee, unspecified laterality, unspecified osteoarthritis [...] EDT Telemedicine [facility] [address] [place] [phone] Karla Lewis RN 08/18/2024 11:15 AM EDT Office Visit [facility] [address] [place] [address] Name, MD Rolf [address] [place] [phone] documented as of this encounter Goals Goal [...] documented as of this encounter Care Teams Volunteer Assistant Relationship Specialty Start Date End Date NameRolf MD [address] [place] [phone] PCP - General Family Medicine 10/21/17 Puia, Martine, PharmD [address] [place] [address] Pharmacist Internal Medicine 04/20/23 Martine Broussard, GarrettD [address] [place] [address] Pharmacist Internal Medicine 04/20/23 08/11/23 documented as of this encounter
--- OUTSIDE RECORDS SUMMARY | 2024-07-20 11:29 | XMS_ITS | Encounter Summary ---
Author Organization [employer] Address 75 [facility] 7 [place] [address] Care Team Providers Care Investment Consultant Name Role Phone Name, Rolf PARKS Primary Care Provider [phone] Martine Broussard PharmD Unavailable [phone] Reason for Visit * Reason Onset Date Comments Medication Question 05/17/2024 Encounter Details Date Type Department Care Team ([facility] st Contact Info) Description 05/17/2024 Telephone [facility] 230 [place], [place] [phone] Name, MD Rolf 230 [place], [place] [phone] Medication Question Social History Tobacco Use Types [...] the past 12 months, has t he [employer], gas, oil or water company threatened to [...] - 05/19/2024 12:37 PM EST TC vis BLS#[id number], daughter updated on covering PCP/Dr Hilliard's temporary [...] 5mg #42 tablets X 7 days from aSy Kurtz, [address] [place] [address]. Pt had also received RX on 05/05/[address] Gamble for his chronic pain medications Percocet 5mg #56 tablets. On 05/17/24 Spoke with Daughter, who is patients CATALOG SPECIALIST as well, and advised she was not to use his Percocet RX from Dr Gamble, only use the pain medication from surgeons office. Advised daughter to call surgeons office for further postop pain medication orders if needed. Return TC via BLS#[id number], daughter states that surgeons office is no [...] 05/17/2024 12:45 PM EST Return TC via BLS#[id number], spoke with daughter Annetta, corinne advised Percocet [...] dosage of medication. Please contact Daughter at [phone]. (Indonesian Speaker) documented in this encounter Plan of Treatment Upcoming Encounters Date Type Department Care Team (Late st Contact Info) Description 08/18/2024 10:00 AM EDT Telemedicine [facility] [address] [place] [address] 49573 Karla Lewis RN 08/18/2024 11:15 AM EDT Office Visit [facility] [address] [place] [address] 40949 NameRolf MD [address] [place] [address] documented as of this encounter Goals Goal [...] documented as of this encounter Care Teams Investment Consultant Relationship Specialty Start Date End Date Rolf Gamble MD [address] [place] [address] 40369 PCP - General Family Medicine 10/21/17 PuMartine camarillo, PharmD [address] [place] [address] 72363 Pharmacist Internal Medicine 04/20/23 documented as of this encounter
--- OUTSIDE RECORDS SUMMARY | 2024-07-20 11:29 | XMS_ITS | Encounter Summary ---
Author Organization [email or web address] Address [address] [place] [address] 7 [place] [address] Care Team Providers Care Follow Up Clerk Name Role Phone Name, Rolf PARKS Primary Care Provider [phone] Martine Broussard PharmD Unavailable [phone] Reason for Visit * Reason Comments Med Refill Encounter Details Date Type Department Care Team ([facility] st Contact Info) Description 03/23/2024 Refill [facility] 230 [place], [place] [phone] Name, MD Rolf 230 [place] [address] Anxiety Social History Tobacco Use Types Packs/Day [...] AM EDT Telemedicine [facility] [address] [place] [address] 35200 Karla Lewis RN 08/18/2024 11:15 AM EDT Office Visit [facility] [address] [place] [address] 13775 Name, MD Rolf [address] [place] [address] 8[address]98 documented as of this encounter Goals Goal [...] documented as of this encounter Care Teams Follow Up Clerk Relationship Specialty Start Date End Date Name, MD Rolf 230 [place] [address] PCP - General Family Medicine 10/21/17 Martine Broussard, GarrettD 230 [place] [address] Pharmacist Internal Medicine 04/20/23 documented as of this encounter
--- OUTSIDE RECORDS SUMMARY | 2024-07-20 11:29 | XMS_ITS | Encounter Summary ---
Author Organization [employer] Address [address] [place] [address] 7 [place] [address] Care Team Providers Care Marketing Research Intern Name Role Phone NameRolf MD Primary Care Provider [phone] Martine Broussard PharmD Unavailable [phone] Reason for Visit * Reason Onset Date Comments Prior Authorization 04/25/2024 Encounter Details Date Type Department Care Team (Late st Contact Info) Description 04/25/2024 Telephone [facility] 230 [place], [place] [phone] Name, MD Rolf 230 [place] [address] Prior Authorization Social History Tobacco Use Types [...] - 04/25/2024 9:51 AM EST Tc from [facility] stating Diclofenac Sodium 1 % gel need a PA. documented in this encounter Plan of Treatment Upcoming Encounters Date Type Department Care Team (Late st Contact Info) Description 08/18/2024 10:00 AM EDT Telemedicine [facility]INE [address] [place] [address] Karla Lewis RN 08/18/2024 11:15 AM EDT Office Visit [facility] 230 [place] [address] Name, MD Rolf [address] [place] [address]58 documented as of this encounter Goals Goal [...] documented as of this encounter Care Teams Marketing Research Intern Relationship Specialty Start Date End Date Name, MD Rolf [address] [place] [address] 92308 PCP - General Family Medicine 10/21/17 Martine Broussard, PharmD [address] [place] [address] 15194 Pharmacist Internal Medicine 04/20/23 documented as of this encounter
--- OUTSIDE RECORDS SUMMARY | 2024-07-20 11:29 | XMS_ITS | Encounter Summary ---
Author Organization [employer] Address 75 [facility] 7t [place] [address] Care Team Providers Care Door Person Name Role Phone Name, Rolf PARKS Primary Care Provider [phone] Martine Broussard PharmD Unavailable [phone] Reason for Visit * Reason Comments Med Refill Encounter Details Date Type Department Care Team ([facility] st Contact Info) Description 10/06/2023 Refill [facility]INE 230 [place], [place] [phone] Name, MD Rolf 230 [place] [address] Osteoarthritis of knee, unspecified laterality, unspecified osteoarthritis [...] [facility]INE [address] [place] [address] 38735 Karla Lewis RN 08/18/2024 11:15 AM EDT Office Visit [facility] [address] [place] [address] 08674 Name, MD Rolf [address] [place] [address] 97658 documented as of this encounter Goals Goal [...] documented as of this encounter Care Teams Door Person Relationship Specialty Start Date End Date Rolf Gamble MD [address] [place] [address] 27981 PCP - General Family Medicine 10/21/17 PuiaLanceMartine, PharmD [address] [place] [address] 90819 Pharmacist Internal Medicine 04/20/23 documented as of this encounter
--- OUTSIDE RECORDS SUMMARY | 2024-07-20 11:29 | XMS_ITS | Encounter Summary ---
Author Organization [employer] Address [address] [place] [address] 7t [place] [address] Care Team Providers Care Outreach Manager Name Role Phone Name, Rolf PARKS Primary Care Provider [phone] Martine Broussard PharmD Unavailable [phone] Reason for Visit * Reason Comments Med Refill Encounter Details Date Type Department Care Team ([facility] st Contact Info) Description 03/21/2024 Refill [facility] 230 [place], [place] [phone] Name, MD Rolf 230 [place] [address] Osteoarthritis of knee, unspecified laterality, unspecified osteoarthritis [...] AM EDT Telemedicine [facility] [address] [place] [address] 57710 Karla Lewis RN 08/18/2024 11:15 AM EDT Office Visit [facility] [address] [place] [address] 58569 Name, MD Rolf [address] [place] [address] 7[address]39 documented as of this encounter Goals Goal [...] documented as of this encounter Care Teams Outreach Manager Relationship Specialty Start Date End Date Name, MD Rolf 230 [place] [address] PCP - General Family Medicine 10/21/17 Martine Broussard, Paulo 230 [place] [address] Pharmacist Internal Medicine 04/20/23 documented as of this encounter
--- OUTSIDE RECORDS SUMMARY | 2024-07-20 11:29 | XMS_ITS | Encounter Summary ---
Author Organization [employer] Address 75 [facility] 7 [place] [address] Care Team Providers Care Passenger Service Representative Name Role Phone Name, Rolf PARKS Primary Care Provider [phone] Martine Broussard PharmD Unavailable [phone] Reason for Visit * Reason Comments Med Refill Encounter Details Date Type Department Care Team ([facility] st Contact Info) Description 03/23/2024 Refill [facility] 230 [place], [place] [phone] Vivian Barajas, ANP 230 [place] [address] Diabetes mellitus type 2 with neurological manifestations [...] 10:00 AM EDT Telemedicine [facility] [address] [place] [address] 53334 Karla Lewis RN 08/18/2024 11:15 AM EDT Office Visit [facility] [address] [place] [address] Name, MD Rolf [address] [place] [address] 22676 documented as of this encounter Goals Goal [...] documented as of this encounter Care Teams Passenger Service Representative Relationship Specialty Start Date End Date Name, MD Rolf 230 [place] [address] PCP - General Family Medicine 10/21/17 Martine Broussard PharmD 230 [place] [address] Pharmacist Internal Medicine 04/20/23 documented as of this encounter
--- OUTSIDE RECORDS SUMMARY | 2024-07-20 11:29 | XMS_ITS | Encounter Summary ---
Author Organization [employer] Address 75 [facility] 7t [place] [address] Care Team Providers Care Shactor Name Role Phone Name, Rolf PARKS Primary Care Provider [phone] Martine Broussard PharmD Unavailable [phone] Reason for Visit * Reason Comments Med Refill Encounter Details Date Type Department Care Team (Late st Contact Info) Description 04/20/2024 Refill [facility] 230 [place], [place] [phone] Name, MD Rolf 230 [place] [address] Anxiety; Osteoarthritis of knee, unspecified laterality, unspecified osteoarthritis type; Type 2 diabetes mellitus with hyperglycemia, without long-term current use of insulin ([facility]); Iron deficiency anemia, unspecified iron [...] AM EDT Telemedicine [facility] [address] [place] [address] 42450 Karla Lewis RN 08/18/2024 11:15 AM EDT Office Visit [facility] [address] [place] [address] Name, MD Rolf [address] [place] [address] documented as of this encounter Goals Goal [...] hyperglycemia, without long-term current use of insulin ([facility]) Iron deficiency anemia, unspecified iron deficiency anemia type Abnormal chest x-ray Nonspecific (abnormal) findings on radiological and other examination of lung field Tobacco use documented in this encounter Additional Health Concerns Assessment Noted Time PHQ-9 Depression Total Score: 0 12/06/19 24 10:09 AM EDT documented as of this encounter Care Teams Shactor Relationship Specialty Start Date End Date Name, MD Rolf 230 [place] [address] PCP - General Family Medicine 10/21/17 Martine Broussard PharmD 230 [place] [address] Pharmacist Internal Medicine 04/20/23 documented as of this encounter
--- OUTSIDE RECORDS SUMMARY | 2024-07-20 11:29 | XMS_ITS | Encounter Summary ---
Author Organization [employer] Address 75 [facility] 7t [place] [address] Care Team Providers Care Oracle Ebs Developer Name Role Phone Name, Rolf PARKS Primary Care Provider [phone] Puia, Martine PharmD Unavailable [phone] Puia, Martine PharmD Unavailable Reason for Visit * Reason Comments Med Refill Encounter Details Date Type Department Care Team (Late st Contact Info) Description 07/03/2023 Refill [facility] MED[facility]INE 230 [place], [place] [phone] Name, MD Rolf 230 [place], [place] [phone] Osteoarthritis of knee, unspecified laterality, unspecified osteoarthritis [...] Info) Description 08/18/2024 10:00 AM EDT Telemedicine [facility] MED[facility]INE [address] [place] [address] 67[address] Karla Lewis RN 08/18/2024 11:15 AM EDT Office Visit [facility] [address] [place] [address] 9[address] Name, MD Rolf [address] [place] [address] 52817 documented as of this encounter Goals Goal [...] documented as of this encounter Care Teams Oracle Ebs Developer Relationship Specialty Start Date End Date NameRolf MD [address] [place] [address] 40272 PCP - General Family Medicine 10/21/17 Puia, Martine, PharmD 230 [place] [address] Pharmacist Internal Medicine 04/20/23 Martine Broussard, GarrettD 230 [place] [address] Pharmacist Internal Medicine 04/20/23 08/11/23 documented as of this encounter
--- OUTSIDE RECORDS SUMMARY | 2024-07-20 11:30 | XMS_ITS | Encounter Summary ---
Author Organization [employer] Address 75 [facility] 7t [place] [address] Care Team Providers Care Minor League Baseball Player Name Role Phone Name, Rolf PARKS Primary Care Provider [phone] Martine Broussard PharmD Unavailable [phone] Reason for Visit * Reason Comments Med Refill Encounter Details Date Type Department Care Team ([facility] st Contact Info) Description 11/26/2023 Refill [facility]INE 230 [place], [place] [phone] Vivian Barjaas, ANP 230 [place] [address] Diabetes mellitus type 2 with neurological manifestations [...] 08/18/2024 10:00 AM EDT Telemedicine [facility]INE [address] [place] [address] 15459 Karla Lewis RN 08/18/2024 11:15 AM EDT Office Visit [facility] [address] [place] [address] 5[address]60 Name, MD Rolf [address] [place] [address] 13690 documented as of this encounter Goals Goal [...] documented as of this encounter Care Teams Minor League Baseball Player Relationship Specialty Start Date End Date Rolf Gamble MD [address] [place] [address] 040[address] PCP - General Family Medicine 10/21/17 Lance Broussardyssa, PharmD [address] [place] [address] 08290 Pharmacist Internal Medicine 04/20/23 documented as of this encounter
--- OUTSIDE RECORDS SUMMARY | 2024-07-20 11:30 | XMS_ITS | Encounter Summary ---
Author Organization [employer] Address 75 [facility] 7 [place] [address] Care Team Providers Care Member Certification Manager Name Role Phone Name, Rolf PARKS Primary Care Provider Martine Broussard PharmD Unavailable [phone] Reason for Visit * Reason Comments Med Refill Encounter Details Date Type Department Care Team ([facility] st Contact Info) Description 05/23/2024 Refill [facility] 230 [place], [place] [phone] Felicia Law NP 230 [place] [address] Anxiety Social History Tobacco Use Types Packs/Day [...] Info) Description 08/18/2024 10:00 AM EDT Telemedicine [facility] [address] [place] [address] 98374 Karla Lewis RN 08/18/2024 11:15 AM EDT Office Visit [facility] [address] [place] [address] 02927 Name, MD Rolf [address] [place] [address] 96482 documented as of this encounter Goals Goal [...] documented as of this encounter Care Teams Member Certification Manager Relationship Specialty Start Date End Date Name, MD Rolf 230 [place] [address] PCP - General Family Medicine 10/21/17 Martine Broussard, GarrettD 230 [place] [address] Pharmacist Internal Medicine 04/20/23 documented as of this encounter
--- OUTSIDE RECORDS SUMMARY | 2024-07-20 11:30 | XMS_ITS | Encounter Summary ---
Author Organization [employer] Address 75 [facility] 7t [place] [address] Care Team Providers Care [employer] Business Objects Developer Name Role Phone Name, Rolf PARKS Primary Care Provider [phone] Martine Broussard PharmD Unavailable [phone] Reason for Visit * Reason Comments Med Refill Encounter Details Date Type Department Care Team ([facility] st Contact Info) Description 12/06/[address] [facility] 230 [place], [place] [phone] Name, MD Rolf 230 [place] [address] Anxiety; Chronic pain of left knee Social [...] Description 08/18/2024 10:[address] [facility] [address] [place] [address] 22737 Karla Lewis RN 08/18/2024 11:15 AM EDT Office Visit [facility] [address] [place] [address] 61131 Rolf Gamble MD [address] [place] [address] 16664 documented as of this encounter Goals Goal [...] as of this encounter Care Teams Sap Business Objects Developer Relationship Specialty Start Date End Date Rolf Gamble MD 230 [place] [address] PCP - General Family Medicine 10/21/17 Martine Broussard PharmD 230 [place] [address] Pharmacist Internal Medicine 04/20/23 documented as of this encounter
--- OUTSIDE RECORDS SUMMARY | 2024-07-20 11:30 | XMS_ITS | Encounter Summary ---
Author Organization [employer] Address 75 [facility] 7 [place] [address] Care Team Providers Care Flipping Machine Operator Name Role Phone NameRolf MD Primary Care Provider [phone] Martine Broussard PharmD Unavailable [phone] Reason for Visit * Reason Onset Date Comments Call Back Request 12/15/2023 Encounter Details Date Type Department Care Team ([facility] st Contact Info) Description 12/15/[address] [facility] MEDICINE 230 [place], [place] [phone] Name, MD Rolf 230 [place] [address] Call Back Request Social History Tobacco Use [...] the past 12 months, has t he [employer], gas, oil or water company threatened to [...] RX if appropriate. * Telephone Encounter - Neal Whalen - 12/15/2023 1:10 PM EDT Tc from daughter requesting a call back, daughter will like to know if pt should take both medications, Tramadol and Clonazepam, please contact. documented in this encounter Plan of Treatment Upcoming Encounters Date Type Department Care Team (Late st Contact Info) Description 08/18/2024 10:00 AM EDT Telemedicine [facility] MED[facility]INE [address] [place] [address] Karla Lewis, RN 08/18/2024 11:15 AM EDT Office Visit [facility] [address] [place] [address] 9[address]40 Name, MD Rolf [address] [place] [address] 25335 documented as of this encounter Goals Goal [...] documented as of this encounter Care Teams Flipping Machine Operator Relationship Specialty Start Date End Date NameRolf MD [address] [place] [address] 02206 PCP - General Family Medicine 10/21/17 Martine Broussard, PharmD [address] [place] [address]6701 Pharmacist Internal Medicine 04/20/23 documented as of this encounter
--- OUTSIDE RECORDS SUMMARY | 2024-07-20 11:30 | XMS_ITS | Encounter Summary ---
Author Organization [employer] Address 75 [facility] 7t [place] [address] Care Team Providers Care Engineering Mgr Name Role Phone Name, Rolf PARKS Primary Care Provider [phone] Martine Broussard PharmD Unavailable [phone] Reason for Visit * Reason Comments Med Refill Encounter Details Date Type Department Care Team ([facility] st Contact Info) Description 11/08/2023 Refill [facility] MED[facility]INE 230 [place], [place] [phone] Name, MD Rolf 230 [place] [address] Anxiety; Chronic pain of left knee Social [...] Info) Description 08/18/2024 10:00 AM EDT Telemedicine [facility] MEDICINE [address] [place] [address] 11576 Karla Lewis RN 08/18/2024 11:15 AM EDT Office Visit [facility] [address] [place] [address] 12350 Name, MD Rolf [address] [place] [address] 9[address]45 documented as of this encounter Goals Goal [...] documented as of this encounter Care Teams Engineering Mgr Relationship Specialty Start Date End Date NameRolf MD [address] [place] [address] 39796 PCP - General Family Medicine 10/21/17 Puia, Martine, PharmD [address] [place] [address] 57571 Pharmacist Internal Medicine 04/20/23 documented as of this encounter
--- OUTSIDE RECORDS SUMMARY | 2024-07-20 11:30 | XMS_ITS | Encounter Summary ---
Author Organization [employer] Address 75 [facility] 7t [place] [address] Care Team Providers Care Academic Advising Director Name Role Phone Name, Rolf PARKS Primary Care Provider [phone] Martine Broussard PharmD Unavailable [phone] Reason for Visit * Reason Onset Date Comments Med Refill 11/24/2023 Encounter Details Date Type Department Care Team (Late st Contact Info) Description 11/24/2023 Telephone [facility] MEDICINE 230 [place], [place] [phone] Name, MD Rolf 230 [place], [place] [phone] Med Refill Social History Tobacco Use Types [...] 10:44 AM EDT Medication was sent to [id number] on 10/21/23 #30 with 1 refill. * Telephone Encounter - Nela Whalen - 11/24/2023 10:42 AM EDT TC from pt requesting medication refill. Medications needing refill : traZODone (Desyrel) 50 MG tablet To be sent to: [id number] [place] [address] [address] [facility] documented in this encounter Plan of Treatment Upcoming Encounters Date Type Department Care Team (Late st Contact Info) Description 08/18/2024 10:00 AM EDT Telemedicine [facility]ICINE [address] [place] [address] 8[address]13 Karla Lewis RN 08/18/2024 11:15 AM EDT Office Visit [facility] [address] [place] [address] 25788 Name, MD Rolf [address] [place] [address] 55[address] documented as of this encounter Goals Goal [...] documented as of this encounter Care Teams Academic Advising Director Relationship Specialty Start Date End Date Name, MD Rolf 230 [place] [address] PCP - General Family Medicine 10/21/17 Martine Broussard PharmD [address] [place] [address] 33054 Pharmacist Internal Medicine 04/20/23 documented as of this encounter
--- OUTSIDE RECORDS SUMMARY | 2024-07-20 11:30 | XMS_ITS | Encounter Summary ---
Author Organization [email or web address] Address 75 [facility] 7 [place] [address] Care Team Providers Care Klystrom Tube Tester Name Role Phone Name, Rolf PARKS Primary Care Provider [phone] Martine Broussard PharmD Unavailable [phone] Reason for Visit * Reason Comments Med Refill Encounter Details Date Type Department Care Team ([facility] st Contact Info) Description 02/02/2024 Refill [facility] MED[facility]INE 230 [place], [place] [phone] Vivian Barajas, ANP 230 [place] [address] Diabetes mellitus type 2 with neurological manifestations [...] AM EDT Telemedicine [facility] MEDICINE [address] [place] [address] Karla Lewis RN 08/18/2024 11:15 AM EDT Office Visit [facility]INE [address] [place] [address] Name, MD Rolf [address] [place] [address] 110[address] documented as of this encounter Goals Goal [...] documented as of this encounter Care Teams Klystrom Tube Tester Relationship Specialty Start Date End Date Name, MD Rolf 230 [place] [address] PCP - General Family Medicine 10/21/17 Martine Broussard PharmD 230 [place] [address] Pharmacist Internal Medicine 04/20/23 documented as of this encounter
--- OUTSIDE RECORDS SUMMARY | 2024-07-20 11:30 | XMS_ITS | Encounter Summary ---
Author Organization [employer] Address 75 [facility] 7t [place] [address] Care Team Providers Care Labor Relations Consultant Name Role Phone Name, Rolf PARKS Primary Care Provider [phone] Martine Broussard PharmD Unavailable [phone] Reason for Visit * Reason Comments Med Refill Encounter Details Date Type Department Care Team ([facility] st Contact Info) Description 11/26/2023 Refill [facility] 230 [place], [place] [phone] Vivian Barajas, ANP 230 [place] [address] Diabetes mellitus type 2 with neurological manifestations [...] Description 08/18/2024 10:00 AM EDT Telemedicine [facility] [address] [place] [address] Karla Lewis RN 08/18/2024 11:15 AM EDT Office Visit [facility] [address] [place] [phone] Name, MD Rolf [address] [place] [phone] documented as of this encounter Goals Goal [...] documented as of this encounter Care Teams Labor Relations Consultant Relationship Specialty Start Date End Date Rolf Gamble MD [address] [place] [address] PCP - General Family Medicine 10/21/17 Lnace Broussardyssa, PharmD [address] [place] [address] Pharmacist Internal Medicine 04/20/23 documented as of this encounter
--- OUTSIDE RECORDS SUMMARY | 2024-07-20 11:30 | XMS_ITS | Encounter Summary ---
Author Organization [employer] Address [address] [place] [address] 7 [place] [address] Care Team Providers Care Mixing Plant Operator Name Role Phone Name, Rolf PARKS Primary Care Provider [phone] Martine Broussard PharmD Unavailable [phone] Reason for Visit * Reason Comments Med Refill Encounter Details Date Type Department Care Team ([facility] st Contact Info) Description 06/21/2024 Refill [facility] 230 [place], [place] [phone] Name, MD Rolf 230 [place] [address] S/P TKR (total knee replacement), left; Anxiety Social History Tobacco Use Types Packs/Day [...] Info) Description 08/18/2024 10:00 AM EDT Telemedicine [facility] [address] [place] [address] Karla Lewis RN 08/18/2024 11:15 AM EDT Office Visit [facility] [address] [place] [phone] Name, MD Rolf [address] [place] [phone] documented as of this encounter Goals Goal Patient Goal Type Associated Problems Recent Progress Patient-Stated? Author Hemoglobin A1c < 7 Result Component 6.6( 11:14 AM EST) No Puia, Martine, PharmD Record your blood sugar as directed Result Component No Puia, Martine, PharmD documented as of this encounter Visit Diagnoses Diagnosis S/P TKR (total knee replacement), left Anxiety Anxiety state, unspecified documented in this encounter Additional Health Concerns Assessment Noted Time PHQ-9 Depression Total Score: 0 12/06/19 24 10:09 AM EDT documented as of this encounter Care Teams Mixing Plant Operator Relationship Specialty Start Date End Date Name, MD Rolf 230 [place] [address] PCP - General Family Medicine 10/21/17 Martine Broussard PharmD 230 [place] [address] Pharmacist Internal Medicine 04/20/23 documented as of this encounter
--- OUTSIDE RECORDS SUMMARY | 2024-07-20 11:30 | XMS_ITS | Encounter Summary ---
Author Organization [employer] Address 75 [facility] 7t [place] [address] Care Team Providers Care Recreation Program Specialist Name Role Phone Name, Rolf PARKS Primary Care Provider [phone] Martine Broussard PharmD Unavailable [phone] Reason for Visit * Reason Onset Date Comments Paperwork/Forms 11/09/2023 Encounter Details Date Type Department Care Team (Late st Contact Info) Description 11/09/2023 Telephone [facility] 230 [place], [place] [phone] Name, MD Rolf 230 [place] [address] Paperwork/Forms Social History Tobacco Use Types Packs/Day [...] - 11/09/2023 9:20 AM EDT Tc from [place] [facility] requesting the status of the PCP order Form as well as a copy of the patients physical documented in this encounter Plan of Treatment Upcoming Encounters Date Type Department Care Team (Late st Contact Info) Description 08/18/2024 10:00 AM EDT Telemedicine [facility] [address] [place] [address] Karla Lewis RN 08/18/2024 11:15 AM EDT Office Visit [facility] [address] [place] [phone] Name, MD Rolf [address] [place] [address] documented as of this encounter Goals Goal [...] documented as of this encounter Care Teams Recreation Program Specialist Relationship Specialty Start Date End Date Rolf Gamble MD 230 [place] [address] PCP - General Family Medicine 10/21/17 Martine Broussard, Paulo [address] [place] [address] Pharmacist Internal Medicine 04/20/23 documented as of this encounter
--- OUTSIDE RECORDS SUMMARY | 2024-07-20 11:30 | XMS_ITS | Encounter Summary ---
Author Organization [employer] Address 75 [facility] 7t [place] [address] Care Team Providers Care Asphalt Distributor Operator Name Role Phone Name, Rolf PARKS Primary Care Provider [phone] Martine Broussard PharmD Unavailable Reason for Visit * Reason Onset Date Comments Med Refill 11/16/2023 Encounter Details Date Type Department Care Team (Late st Contact Info) Description 11/16/2023 Telephone [facility] MED[facility]INE 230 [place], [place] [phone] Name, MD Rolf 230 [place], [place] [phone] Med Refill Social History Tobacco Use Types [...] 2 MG tablet [id number] [place] [address] [address] [place] AT [facility] [place] documented in this encounter Plan of Treatment Upcoming Encounters Date Type Department Care Team (Late st Contact Info) Description 08/18/2024 10:00 AM EDT Telemedicine [facility] [address] [place] [address] [phone] Karla Lewis RN 08/18/2024 11:15 AM EDT Office Visit [facility] [address] [place] [phone] Name, MD Rolf [address] [place] [address] documented as of this encounter Goals Goal [...] documented as of this encounter Care Teams Asphalt Distributor Operator Relationship Specialty Start Date End Date Name, MD Rolf [address] [place] [address] PCP - General Family Medicine 10/21/17 Martine Broussard, PharmD [address] [place] [address] Pharmacist Internal Medicine 04/20/23 documented as of this encounter
--- OUTSIDE RECORDS SUMMARY | 2024-07-20 11:30 | XMS_ITS | Encounter Summary ---
Author Organization [employer] Address 75 [facility] 7 [place] [address] Care Team Providers Care Media Promoter Name Role Phone Name, Rolf PARKS Primary Care Provider [phone] Martine Broussard PharmD Unavailable [phone] Reason for Visit * Reason Comments Med Refill Encounter Details Date Type Department Care Team (Late st Contact Info) Description 12/24/2023 Refill [facility] 230 [place], [place] [phone] Vivian Barajas, ANP 230 [place] [address] Diabetes mellitus type 2 with neurological manifestations [...] Info) Description 08/18/2024 10:00 AM EDT Telemedicine [facility] [address] [place] [phone] Karla Lewis RN 08/18/2024 11:15 AM EDT Office Visit [facility] [address] [place] [phone] Rolf Gamble MD [address] [place] [address] documented as of this encounter Goals Goal [...] documented as of this encounter Care Teams Media Promoter Relationship Specialty Start Date End Date Rolf Gamble MD 230 [place] [address] PCP - General Family Medicine 10/21/17 Martine Broussard PharmD 230 [place] [address] Pharmacist Internal Medicine 04/20/23 documented as of this encounter
--- OUTSIDE RECORDS SUMMARY | 2024-07-20 11:30 | XMS_ITS | Encounter Summary ---
Author Organization [employer] Address 75 [facility] 7 [place] [address] Care Team Providers Care Dental Lab Technician Name Role Phone Name, Rolf PARKS Primary Care Provider [phone] Martine Broussard PharmD Unavailable [phone] Reason for Visit * Reason Comments Med Refill Encounter Details Date Type Department Care Team (Late st Contact Info) Description 2023 Refill [facility] 230 [place], [place] [phone] Vivian Barajas, ANP [address] [place] [address] Diabetes mellitus type 2 with neurological manifestations [...] 10:00 AM EDT Telemedicine [facility] [address] [place] [phone] Karla Lewis RN 08/18/2024 11:15 AM EDT Office Visit [facility] [address] [place] [phone] Rolf Gamble MD [address] [place] [address] documented as of this encounter Goals Goal [...] documented as of this encounter Care Teams Dental Lab Technician Relationship Specialty Start Date End Date Rolf Gamble MD [address] [place] [address] PCP - General Family Medicine 10/21/17 Martine Broussard PharmD 230 [place] [address] Pharmacist Internal Medicine 04/20/23 documented as of this encounter
--- OUTSIDE RECORDS SUMMARY | 2024-07-20 11:30 | XMS_ITS | Encounter Summary ---
Author Organization [employer] Address 75 [facility] 7t [place] [address] Care Team Providers Care Toy Electric Train Repairer Name Role Phone Name, Rolf PARKS Primary Care Provider [phone] Martine Broussard PharmD Unavailable [phone] Reason for Visit * Reason Comments Med Refill Encounter Details Date Type Department Care Team (Late st Contact Info) Description 02/01/2024 Refill [facility] 230 [place], [place] [phone] Name, MD Rolf 230 [place] [address] Osteoarthritis of knee, unspecified laterality, unspecified osteoarthritis [...] AM EDT Telemedicine [facility] [address] [place] [address] Karla Lewis RN 08/18/2024 11:15 AM EDT Office Visit [facility] [address] [place] [phone] Name, MD Rolf [address] [place] [address] documented as of this encounter Goals Goal [...] documented as of this encounter Care Teams Toy Electric Train Repairer Relationship Specialty Start Date End Date Name, MD Rolf 230 [place] [address] PCP - General Family Medicine 10/21/17 Martine Broussard PharmD 230 [place] [address] Pharmacist Internal Medicine 04/20/23 documented as of this encounter
--- OUTSIDE RECORDS SUMMARY | 2024-07-20 11:30 | XMS_ITS | Encounter Summary ---
Author Organization [employer] Address 75 [facility] 7t [place] [address] Care Team Providers Care Gallery Manager Name Role Phone Name, Rolf PARKS Primary Care Provider [phone] Martine Broussard PharmD Unavailable [phone] Reason for Visit * Reason Comments Med Refill Encounter Details Date Type Department Care Team ([facility] st Contact Info) Description 11/17/2023 Refill [facility] 230 [place], [place] [phone] Name, MD Rolf 230 [place] [address] Anxiety Social History Tobacco Use Types Packs/Day [...] 10:00 AM EDT Telemedicine [facility] [address] [place] [phone] Karla Lewis RN 08/18/2024 11:15 AM EDT Office Visit [facility] [address] [place] [phone] Name, MD Rolf [address] [place] [address] documented as of this encounter Goals Goal [...] documented as of this encounter Care Teams Gallery Manager Relationship Specialty Start Date End Date NameRolf MD [address] [place] [address] PCP - General Family Medicine 10/21/17 Puia, Martine, PharmD [address] [place] [address] Pharmacist Internal Medicine 12/19/23 documented as of this encounter
--- OUTSIDE RECORDS SUMMARY | 2024-07-20 11:30 | XMS_ITS | Continuity of Care Document ---
Author Organization [employer] Address [address] [place] [address] Care Team Providers Care Boiling House Hand Name Role Phone HIM ARELI OTHER [facility] OTHER NAME, TABBY OTHER Assessment Encounter Date Assessment Date Assessment LastModified by Organization Details LastModified Time 06/23/2024 06/23/2024 I have reviewed and agree with the assessment and plan as documented by the golf cart attendant. I provided real-time medical direction for this encounter and was immediately available to provide additional phone-based assistance as needed. History as noted in EMR and by golf cart attendant. I would add / emphasize: Patient with history of COPD is seen for 2 weeks of productive cough. Intermittent fevers. Treated with benzonatate without significant improvement. Borderline febrile. Sinus tachycardia normotensive. Saturating 93% on room air. Lung sounds reveal no wheezing but with coarse breath sounds at the left base greater than right base. COVID and flu rapid tests are negative. Suspicion is for bacterial pneumonia given fevers, focal lung sounds, lack of wheezing. Though family and patient endorse rapid heart rate happens with medical staff interactions the heart rate of 130 seems atypically high for anxiety and likely as a result of fever/infection . Given lack of other systemic complaints and normotension low suspicion for sepsis. Will treat aggressively at home as patient wishes to avoid emergency department evaluation. Given 1 L of crystalloid, IV ceftriaxone, and p.o. azithromycin. Will continue home treatment with azithromycin and Augmentin p.o. Patient instructed to follow-up closely with primary care team. Red flags that should prompt ED evaluation (worsening cough, shortness of breath, persistent fevers despite antibiotics, malaise, chest pain) discussed and family/patient voiced understanding. pallfather Not available 06/24/2024 08:08:49 Plan of Treatment Reminders Order Date Submit Date Provider Last Modified By Organization Details Last Modified Time Details Appointments None recorded. Lab rapid SARS CoV 2 Ag, QL IA, respirato ry specimen 2024 025 [facility], [address] [place] [address], [id number], 5 20:42:03 rapid flu (A+B) 2024 025 [facility], [address] [place] [address], [id number], 5 20:42:03 Referral None recorded. Procedures None recorded. Surgeries None recorded. Imaging None recorded. Medication Orders sodium chloride 0.9 % intraveno us solution 2024 025 [facility] [employer] [facility] #[id number], [address], [place], [id number], 5 20:12:04 azithromy horacio 250 mg tablet 2024 025 [facility], [address], [place], [id number], 5 21:21:47 Augmentin 500 mg-125 mg tablet 2024 025 [facility], [address], [place], [id number], 5 21:21:45 ceftriaxo ne 1 gram solution for injection [address] [place], [place] [address] #[id number], [address], [place], [id number], 5 21:23:11 azithromy horacio 250 mg tablet 2024 025 [facility] [address], [place], [id number], 5 21:23:11 Patient TargetsNo targets recorded. Patient InstructionsNo instructions recorded. Reason for Referral None Reported. Results Created Date Observation Date Name Description Value Unit Range Abnormal Flag Note LastModifiedBy Organization Detail LastModifiedTime Result Notes None recorded. Medical Equipment None Reported. Allergies No known drug allergies Medications Name Sig Start Date Stop Date [...] tablet TAKE 1 TABLET BY MOUTH EVERY EVENING NEEDED active Not Available Not Available No t Available azithromycin 250 mg tablet TAKE 1 TABLET (250 MG) BY ORAL ROUTE ONCE DAILY FOR 4 DAYS active Not Available Not Available No [...] Available tramadol 50 mg tablet TAKE 1 TO 2 TABLETS BY MOUTH EVERY 6 HOURS NEEDED FOR MILD PAIN. DO NOT EXCEED 8 TABLETS (400MG) PER DAY. active Not Available Not Available No t Available acetaminophe n 500 mg tablet active Not Available Not Available Not Available oxycodone-ac etaminophen 5 mg-325 mg tablet TAKE 1 TABLET BY MOUTH TWICE DAILY active Not Available Not Available No t Available NujiTouch Ultra Test strips USE DIRECTED TO TEST BLOOD SUGAR ONCE DAILY active Not Available Not Available No t Available benzonatate 100 mg capsule TAKE 1 CAPSULE BY MOUTH THREE TIMES DAILY IN THE MORNING, AT NOON, AND AT BEDTIME NEEDED FOR COUGH FOR UP TO 7 DAYS, DO NOT BREAK, CRUSH, DISSOLVE OR CHEW active Not Available Not Available No t Available metformin 1,000 mg tablet TAKE 1 TABLET BY MOUTH TWICE DAILY IN THE MORNING AND IN THE EVENING WITH MEALS active Not Available Not Available N ot Available clonazepam 2 mg tablet TAKE 1 TABLET BY MOUTH EVERY NIGHT AT BEDTIME NEEDED active Not Available Not Available No t Available fluticasone 500 mcg-salmeter ol 50 mcg/dose blistr powdr for inhalation active Not Available Not Available N ot Available losartan 25 mg tablet active Not Available Not Available No t Available docusate sodium 100 mg capsule TAKE 1 CAPSULE BY MOUTH TWO TIMES A DAY active Not Available Not Available Not Available gabapentin 300 mg capsule TAKE ONE CAPSULE BY MOUTH TWICE DAILY active Not Available Not Available No t Available omeprazole 20 mg capsule,teresa yed release TAKE 1 CAPSULE BY MOUTH EVERY MORNING (30 TO 60 MINUTES BEFORE A MEAL) active Not Available Not Available No t Available mirtazapine 15 mg tablet TAKE 1 TABLET BY MOUTH EVERY NIGHT active Not Available Not Available No t Available ibuprofen 600 mg tablet active Not Available Not Available Not Available amoxicillin 500 mg-potassium clavulanate 125 mg tablet TAKE 1 TABLET BY MOUTH EVERY 12 HOURS active Not Available Not Available No t Available Ventolin HFA 90 mcg/actuatio n aerosol inhaler active Not Available Not Available Not Available oxycodone 5 mg tablet TAKE 1 TABLET BY MOUTH EVERY 4 HOURS FOR 7 DAYS DIRECTED active Not Available Not Available No t Available escitalopram 10 mg tablet active Not Available Not Available Not Available FeroSul 325 mg (65 mg iron) tablet TAKE 1 TABLET BY MOUTH EVERY OTHER DAY IN THE MORNING active Not Available Not Available No t Available diclofenac 1 % topical gel active Not Available Not Available Not Available Eliquis 2.5 mg tablet TAKE 1 TABLET BY MOUTH TWO TIMES A DAY active Not Available Not Available Not Available Jardiance 10 mg tablet active Not Available Not Available No t Available Trulicity 1.5 mg/0.5 mL subcutaneous pen [...] No t Available Vitals Date Recorded Body height Heart rate Respiratory rate Oxygen saturation Oxygen saturation in Arterial blood by Pulse oximetry Body weight Body temperature Systolic blood pressure Diastolic blood pressure Provider Name and Address Organization Details Last Updated DateTime 5 180.34 cm 130 /min 20 /min 93 % 93 % 49904.5 6 g 99.9 [degF] 149 mm[Hg] 79 mm[Hg] Not Available [facility] - production 18:39:33 Social History None recorded. Functional Status None recorded. Mental Status None recorded. Family History Nothing Reported. Medical History No medical history recorded. Past Encounters Encounter ID Performer Location Encounter Start Date Encounter Closed Date Diagnosis/Indication Diagnosis SNOMED-CT Code Diagnosis ICD10 Code Diagnosis Note [id number] Ron Bui MD [facility] - [facility] [address] [place] [phone] 06/23/2024 18:28:01 06/24/2024 09:28:00 Community acquired pneumonia 769797042 J18.9 Health Concerns Section Related Observation LastModified by Organization Detai ls LastModified Time None Recorded Concern Status LastModified by Organization Details LastModified Time None Recorded Payers Encounter Date Sequence Insurance Name Policy Number Policy Daniel Covered Member ID Daniel Member ID Guarantor Name 06/23/[address] [facility] - DOS ON OR AFTER 2022 - DUAL ELIGIBLE - [facility] [employer] (MEDICARE REPLACEMENT/ADV ANTAGE - HMO) Hong Antoine [id number] Hong Puente Antoine Notes Date Note Type Note Provider Name and Address Organization Details Recorded Time 06/23/2024 text/html HPI: Call returned to Hong Antoine to triage below. Spoke with Rylaneil daughter who is on HIPAA. Reports pt having productive cough x 1 week. Denies any other HEIDY sx. Subjective fevers. Negative homekit for COVID-19 3 days ago. Denies any wheezing. Using Inhaler Q4H. Using Nebulizer Q6H. Pt and daughter unable to come into [facility] today. Agree to [facility] for eval. Confirmed demographics and allergies. .................. .................. .................. .................. .................. .................. .................. ............... [facility] Nurse Triage Notes (Lety Wood - RN): Chief Complaints: Cough PMH: Hypertension, Diabetes Mellitus Type 2, Emphysema PMH Reviewed at 06/23/2024:17 Allergies Reviewed at 06/23/2024:17 Comments: HPI reviewed- [place] Spin Table Operator Organization Information for Molly Partida Business Legal Name: [employer]? Address: [address] [place] [address], Senior Java Programmer: Avery Herrera MD [place] No.: [id number] Spin Table Operator POC Test Results from Molly Partida Rapid COVID antigen (18:39:39) COVID: - Attachments uploaded as part of this test result can be found under Documents section. Rapid influenza antigen (18:39:41) Flu: - EKG (18:41:17) EKG test performed. Attachments uploaded as part of this test result can be found under Documents section. .................. .................. .................. .................. .................. .................. .................. ............... Spin Table Operator Note From Molly Partida: MIH makes pt contact. He is found sitting upright on the sofa in the living room watching tv, his R arm resting on his head in a relaxed pose. He is not in acute distress. No stridor or sonorous respirations are present. He turns to make eye contact and smile at [facility]. No facial droop or one-sided weakness are observed and he is not bleeding anywhere. Daughter and sons are on scene to provide translation. Pt endorses a hard and productive cough x2 weeks. He says about a week ago, he began having green sputum and he has been becoming more sob w/ exertion. He also endorses fevers on and of, but denies night sweats. Pt is also denying cp, n/v/d, abd pain, sore throat, and HUNT or facial pain. He says, I don't feel bad at all! Daughter endorses pt's cough has been getting worse. She also says pt was on benzonatate for one week w/ no change in the cough. He is taking Tylenol to control his fever. Pt consents to evaluation and treatment today. [facility] obtains vital signs and pt is assessed. Lung sounds reveal rales in the bases, more on the L than the R, w/ diminished sounds on the R. Mild rhonchi is noted over the lower large airways, no wheezing is currently present. Pt is swabbed for COVID/flu and found to be negative for both. Is is found to be febrile and his cough is hard and productive-danish shetty. [facility] contacts [facility] and discusses the above. [facility] orders 500mg azithromycin PO, 2G ceftriaxone IV, and 1L fluids. An 18 ga IV is established in the L AC and locked w/ a saline lock. Pt is administered 500mg azithromycin PO and 2G ceftriaxone SIVP. 1L LR is starr nd lung sounds are reassessed after each 500mls w/ no change. Pt tolerates all treatments well. He is informed of red flag s/s. Pt and family thank [facility] for coming. [facility] is clear. Report completed by RANDY Partida [id number]. .................. .................. .................. .................. .................. .................. .................. ............... [facility] Consulted: Ron Bui .................. .................. .................. .................. .................. .................. .................. ............... Disposition: Fulfilled Ron Bui MD [address] [facility],[address], [place], [address], OSWALDO - MINDY CLIFTON 06/24/2024 08:57:13
--- OUTSIDE RECORDS SUMMARY | 2024-07-20 11:30 | XMS_ITS | Encounter Summary ---
Author Organization [employer] Address [address] [facility] [address] [place] [address] Care Team Providers Care Band Ripsaw Operator Name Role Phone Name, Rolf PARKS Primary Care Provider [phone] Martine Broussard PharmD Unavailable [phone] Reason for Visit * Reason Comments Med Refill Encounter Details Date Type Department Care Team (Late st Contact Info) Description 12/08/2023 Refill [facility] [address] [place], [place] [phone] Name, MD Rolf [address] [place] [address] Anxiety; Chronic pain of left knee Social [...] Info) Description 08/18/2024 10:00 AM EDT Telemedicine [facility] [address] [place] [id number] Karla Lewis RN 08/18/2024 11:15 AM EDT Office Visit [facility] [address] [place] [phone] Rolf Gamble MD [address] [place] [address] documented as of this encounter Goals Goal [...] documented as of this encounter Care Teams Band Ripsaw Operator Relationship Specialty Start Date End Date Rolf Gamble MD [address] [place] [address] PCP - General Family Medicine 10/21/17 Martine Broussard PharmD [address] [place] [address] Pharmacist Internal Medicine 04/20/23 documented as of this encounter
--- OUTSIDE RECORDS SUMMARY | 2024-07-20 11:30 | XMS_ITS | Encounter Summary ---
Author Organization [employer] Address [address] [facility] 7[address] [place] [address] Care Team Providers Care Log Cutter Name Role Phone Name, Rolf PARKS Primary Care Provider [phone] Martine Broussard PharmD Unavailable [phone] Reason for Visit * Reason Comments Med Refill Encounter Details Date Type Department Care Team (Late st Contact Info) Description 01/14/[address] [facility] [address] [place], [place] [phone] Name, MD Rolf [address] [place] [address] Anxiety; Osteoarthritis of knee, unspecified laterality, unspecified [...] Description 08/18/2024 10:[address] [facility] [address] [place] [phone] Karla Lewis RN 08/18/2024 11:15 AM EDT Office Visit [facility] [address] [place] [phone] Name, MD Rolf [address] [place] [address] documented as of this encounter Goals Goal [...] documented as of this encounter Care Teams Log Cutter Relationship Specialty Start Date End Date Name, MD Rolf [address] [place] [address] PCP - General Family Medicine 10/21/17 Martine Broussard PharmD [address] [place] [address] Pharmacist Internal Medicine 04/20/23 documented as of this encounter
--- OUTSIDE RECORDS SUMMARY | 2024-07-20 11:30 | XMS_ITS | Encounter Summary ---
Author Organization [employer] Address [address] [place] [address] [address] [place] [address] Care Team Providers Care White Kid Buffer Name Role Phone Name, Rolf PARKS Primary Care Provider [phone] Martine Broussard PharmD Unavailable [phone] Reason for Visit * Reason Comments Med Refill Encounter Details Date Type Department Care Team ([facility] st Contact Info) Description 05/24/2024 Refill [facility] [address] [place], [place] [phone] Name, MD Rolf [address] [place] [address] Osteoarthritis of both knees, unspecified osteoarthritis type [...] Info) Description 08/18/2024 10:00 AM EDT Telemedicine [facility] [address] [place] [address] Karla Lewis RN 08/18/2024 11:15 AM EDT Office Visit [facility] [address] [place] [address] Name, MD Rolf [address] [place] [address] documented as of this encounter Goals Goal [...] documented as of this encounter Care Teams White Kid Buffer Relationship Specialty Start Date End Date Name, MD Rolf [address] [place] [address] PCP - General Family Medicine 10/21/17 Martine Broussard PharmD [address] [place] [address] Pharmacist Internal Medicine 04/20/23 documented as of this encounter
--- OUTSIDE RECORDS SUMMARY | 2024-07-20 11:30 | XMS_ITS | Encounter Summary ---
Author Organization [employer] Address [address] [facility] 7t [place] [address] Care Team Providers Care Environmental Services Specialist Name Role Phone Name, Rolf PARKS Primary Care Provider [phone] Martine Broussard PharmD Unavailable [phone] Reason for Visit * Reason Comments Med Refill Encounter Details Date Type Department Care Team ([facility] st Contact Info) Description 11/19/2023 Refill [facility] [address] [place], [place] [phone] Name, MD Rolf [address] [place] [address] Anxiety Social History Tobacco Use Types Packs/Day [...] Info) Description 08/18/2024 10:00 AM EDT Telemedicine [facility] [address] [place] [phone] Kalra Lewis RN 08/18/2024 11:15 AM EDT Office Visit [facility] [address] [place] [phone] Name, MD Rolf [address] [place] [address] documented as of this encounter Goals Goal [...] documented as of this encounter Care Teams Environmental Services Specialist Relationship Specialty Start Date End Date NameRolf MD [address] [place] [address] PCP - General Family Medicine 10/21/17 Puia, Martine, PharmD [address] [place] [address] Pharmacist Internal Medicine 12/19/23 documented as of this encounter
--- OUTSIDE RECORDS SUMMARY | 2024-07-20 11:30 | XMS_ITS | Data Portability ---
Author Organization [employer] Address [address] [place] [address] Care Team Providers Care Engineering Model Maker Name Role Phone HIM ARELI OTHER [facility] OTHER NAME, TABBY OTHER Assessment Encounter Date Assessment Date Assessment LastModified by Organization Details LastModified Time 02/15/2024 02/15/2024 I have reviewed and agree with the assessment and plan as documented by the doctor chiropractic. I provided real time medical direction for this encounter and was immediately available to provide additional phone based assistance as needed. History as noted by doctor chiropractic. Pt with history of COPD, not on [...] with them. btils Not available 02/15/2024 10:50:41 06/23/2024 06/23/2024 I have reviewed and agree with the assessment and plan as documented by the doctor chiropractic. I provided real-time medical direction for this encounter and was immediately available to provide additional phone-based assistance as needed. History as noted in EMR and by doctor chiropractic. I would add / emphasize: Patient with [...] QL IA, respirato ry specimen 2024 025 [facility], [address] [place] [address], [id number], 5 20:42:03 rapid flu (A+B) 2024 025 [facility], [address] [place] [address], [id number], 5 20:42:03 rapid SARS CoV 2 Ag, QL IA, respirato ry specimen 2023 [facility], [address] [place] [address], [id number], 4 10:42:40 rapid flu (A+B) 2023 [facility], [address] [place], [id number], 4 10:42:40 Referral None recorded. Procedures None recorded. Surgeries None recorded. Imaging None recorded. Medication Orders sodium chloride 0.9 % intraveno us solution 2024 025 [facility], [address] [place], [place], [id number], 5 20:12:04 azithromy horacio 250 mg tablet 2024 025 [facility]11354, [address], [place], [id number], 5 21:21:47 Augmentin 500 mg-125 mg tablet 2024 025 [facility] #36174, [address], [place], [id number], 5 21:21:45 ceftriaxo ne 1 gram solution for injection 2024 025 [facility]72990, [address], [place], [id number], 5 21:23:11 azithromy horacio 250 mg tablet 2024 025 [facility]43032, [address], [place], [id number], 5 21:23:11 benzonata te 200 mg capsule 2023 [facility]10493, [address] [place], [id number], 10:47:21 Patient TargetsNo targets recorded. Patient InstructionsNo instructions recorded. Reason for Referral None Reported. Results Created Date Observation Date Name Description Value Unit Range Abnormal Flag Note LastModifiedBy Organization Detail LastModifiedTime 02/15/2002/15/2024 rapid flu (A+B) Flu negati ve Not Available Main - [facility] ed [address] [place] [address], [id number], 02/15/2024 10:42:15 02/15/20 24 02/15/2024 rapid SARS CoV 2 Ag, QL IA, respi rator y speci men rapid SARS CoV 2 Ag, QL IA, respiratory specimen negati ve Not Available [facility] ed [address] [place], [address], 02/15/2024 10:42:12 Result Notes None recorded. Medical [...] Available Not Available No t Available OneTouch Ultra Test strips USE DIRECTED TO TEST [...] % 148 mm[Hg] 86 mm[Hg] Not Available [facility] - iXpert 4 10:38:51 Date Recorded Body height Heart rate Respiratory rate Oxygen saturation Oxygen saturation in Arterial blood by Pulse oximetry Body weight Body temperature Systolic blood pressure Diastolic blood pressure Provider Name and Address Organization Details Last Updated DateTime 5 180.34 cm 130 /min 20 /min 93 % 93 % 93987.5 6 g 99.9 [degF] 149 mm[Hg] 79 mm[Hg] Not Available [facility] - production 5 18:39:33 Social History None recorded. Functional Status None recorded. Mental Status None recorded. Family History Nothing Reported. Medical History No medical history recorded. Past Encounters Encounter ID Performer Location Encounter Start Date Encounter Closed Date Diagnosis/Indication Diagnosis SNOMED-CT Code Diagnosis ICD10 Code Diagnosis Note [id number] Veto Valladares MD Main - [facility] [address] [place] [address] 02/15/2024 10:38:48 02/15/2024 12:04:39 Cough 42092996 R05.9 [id number] Ron Bui MD Main - [facility] [address] [place] [address] 06/23/2024 18:28:01 06/24/2024 09:28:00 Community acquired pneumonia 159904924 J18.9 Health Concerns Section Related Observation LastModified by Organization Detai ls LastModified Time None Recorded Concern Status LastModified by Organization Details LastModified Time None Recorded Advance Directives Directive None Recorded Payers Encounter Date Sequence Insurance Name Policy Number Policy Daniel Covered Member ID Daniel Member ID Guarantor Name 02/15/[address] [facility] - DOS ON OR AFTER 2022 - DUAL ELIGIBLE - RETIREMENT OPTIONS AND ONE CARE (MEDICARE REPLACEMENT/ADV ANTAGE - HMO) Hong Antoine [id number] Hong Antoine 06/23/[address] [facility] - DOS ON OR AFTER 2022 - DUAL ELIGIBLE - RETIREMENT OPTIONS AND ONE CARE (MEDICARE REPLACEMENT/ADV ANTAGE - HMO) Hong Antoine [id number] [facility] Arash Notes Date Note Type Note Provider Name and Address Organization Details Recorded Time 02/15/2024 text/html This was a supervised home visit with doctor chiropractic Samuel Keen. HPI: PMHx: [facility]phy[facility]ma[facility]. Spoke with [...] bring pt in for exam. Agrees to [facility] referral. .................... .................... .................... .................... .................... .................... .................... . [facility] Nurse Triage Notes (Josselyn Newton): Chief Complaints: Cough PMH: Diabetes, Hypertension Comments: c[facility] RN DID NOT NEED FURTHER INFO Resident Services Supervisor Organization Information for Samuel Keen Legal Name: [facility] [employer] Address: [address] [place] [address], [place] [address], Polarity Tester: Reddy LEÓN No.: [id number] Resident Services Supervisor POC Test Results from Samuel Keen Rapid COVID antigen (10:37:06) COVID: - Rapid influenza antigen (10:37:07) Flu: - .................... .................... .................... .................... .................... .................... .................... . Resident Services Supervisor Note From Samuel Keen: Pt with hx [...] . Disposition: Fulfilled Veto Valladares MD [address] [facility],[address], [place], [address], [facility] [employer] 02/15/2024 11:17:19 06/23/2024 text/html HPI: Call returned to Hong Puente Antoine to triage below. Spoke with Sugeil daughter who is on HIPAA. Reports pt having productive cough x 1 week. Denies any other HEIDY sx. Subjective fevers. Negative homekit for COVID-19 3 days ago. Denies any wheezing. Using Inhaler Q4H. Using Nebulizer Q6H. Pt and daughter unable to come into [facility] today. Agree to [facility] for eval. Confirmed demographics and allergies. .................... .................... .................... .................... .................... .................... .................... . [facility] Nurse Triage Notes (Lety Wood - RN): Chief Complaints: Cough PMH: Hypertension, Diabetes Mellitus Type 2, Emphysema PMH Reviewed at 06/23/2024:17 Allergies Reviewed at 06/23/2024 - 11:17 Comments: HPI reviewed- [place] Resident Services Supervisor Organization Information for Jaquan Ineznatalya Active[employer]i Legal Name: [employer] Address: [address] [place] [address], Polarity Tester: Avery Herrera MD CLIA No.: [id number] Resident Services Supervisor POC Test Results from Molly Partida - ALS Rapid COVID antigen (18:39:39) COVID: - Attachments uploaded as part of this test result can be found under Documents section. Rapid influenza antigen (18:39:41) Flu: - EKG (18:41:17) EKG test performed. Attachments uploaded as part of this test result can be found under Documents section. .................... .................... .................... .................... .................... .................... .................... . Resident Services Supervisor Note From Molly Partida: [facility] makes pt contact. He is found sitting upright on the sofa in the living room watching tv, his R arm resting on his head in a relaxed pose. He is not in acute distress. No stridor or sonorous respirations are present. He turns to make eye contact and smile at [facility]. No facial droop or one-sided weakness are [...] Pt consents to evaluation and treatment today. [facility] obtains vital signs and pt is assessed. [...] febrile and his cough is hard and productive-sounding. [facility] contacts [facility] and discusses the above. [facility] orders 500mg azithromycin PO, 2G ceftriaxone IV, [...] red flag s/s. Pt and family thank [facility] for coming. [facility] is clear. Report completed by RNADY Partida [id number]. .................... .................... .................... .................... .................... .................... .................... . [facility] Consulted: Ron Bui .................... .................... .................... .................... .................... .................... .................... . Disposition: Fulfilled Ron Bui MD [address] [facility],[address], [place], [address], [facility] 06/24/2024 08:57:13
--- OUTSIDE RECORDS SUMMARY | 2024-07-20 11:30 | XMS_ITS | Encounter Summary ---
Author Organization [email or web address] Address [address] [facility] 7t [place] [address] Care Team Providers Care Rail Operator Name Role Phone Name, Rolf PARKS Primary Care Provider [phone] Martine Broussard PharmD Unavailable [phone] Reason for Visit * Reason Onset Date Comments Nurse Triage 11/16/2023 Encounter Details Date Type Department Care Team ([facility] st Contact Info) Description 11/16/2023 Telephone [facility] [address] [place], [place] [phone] Name, MD Rolf [address] [place], [place] [phone] Nurse Triage Social History Tobacco Use Types [...] Back pain. Daughter advised of disposition, offered [facility] today. Daughter declines only wants pt seen by PCP. Advised nothing sooner than already booked follow up in December. Per daughter was told Dr. Gamble would be at [facility] on 11/23. Advised unable to guarantee that [...] Info) Description 08/18/2024 10:00 AM EDT Telemedicine [address] [address] Karla Lewis RN 08/18/2024 11:15 AM EDT Office Visit [address] [address] Name, MD Rolf [address] [place] [address] documented as of this encounter Goals Goal [...] documented as of this encounter Care Teams Rail Operator Relationship Specialty Start Date End Date NameRolf MD [address] [place] [address] PCP - General Family Medicine 10/21/17 Puia, Martine, PharmD [address] [place] [address] Pharmacist Internal Medicine 04/20/23 documented as of this encounter
--- OUTSIDE RECORDS SUMMARY | 2024-07-20 11:30 | XMS_ITS | Encounter Summary ---
Author Organization [employer] Address [address] [place] [address] 7 [place] [address] Care Team Providers Care Integrated Circuit Ic Layout Designer Name Role Phone Name, Rolf PARKS Primary Care Provider [phone] Martine Broussard PharmD Unavailable [phone] Reason for Visit * Reason Comments Med Refill Encounter Details Date Type Department Care Team (Late st Contact Info) Description 12/16/2023 Refill [facility] [address] [place], [place] [phone] Name, MD Rolf [address] [place] [address] Osteoarthritis of knee, unspecified laterality, unspecified osteoarthritis [...] Description 08/18/2024 10:00 AM EDT Telemedicine [facility] [address] [place] [address] Karla Lewis RN 08/18/2024 11:15 AM EDT Office Visit [facility] [address] [place] [address] Name, MD Rolf [address] [place] [address] documented as of this encounter Goals Goal [...] documented as of this encounter Care Teams Integrated Circuit Ic Layout Designer Relationship Specialty Start Date End Date Name, MD Rolf [address] [place] [address] PCP - General Family Medicine 10/21/17 Martine Broussard PharmD [address] [place] [address] Pharmacist Internal Medicine 04/20/23 documented as of this encounter
--- OUTSIDE RECORDS SUMMARY | 2024-07-20 11:30 | XMS_ITS | Encounter Summary ---
Author Organization [employer] Address 75 [facility] 7 [place] [address] Care Team Providers Care Python Java Developer Name Role Phone Name, Rolf PARKS Primary Care Provider [phone] Martine Broussard PharmD Unavailable [phone] Reason for Visit * Reason Comments Med Refill Encounter Details Date Type Department Care Team (Late st Contact Info) Description 01/11/2024 Refill [facility] [address] [place], [place] [phone] Vivian Barajas, ANP [address] [place] [address] Diabetes mellitus type 2 with neurological manifestations [...] AM EDT Telemedicine [facility] [address] [place] [address] Karla Lewis RN 08/18/2024 11:15 AM EDT Office Visit [facility] [address] [place] [address] Name, MD Rolf [address] [place] [address] documented as of this encounter Goals Goal [...] documented as of this encounter Care Teams Python Java Developer Relationship Specialty Start Date End Date Name, MD Rolf [address] [place] [address] PCP - General Family Medicine 10/21/17 Martine Broussard PharmD [address] [place] [address] Pharmacist Internal Medicine 04/20/23 documented as of this encounter
--- OUTSIDE RECORDS SUMMARY | 2024-07-20 11:30 | XMS_ITS | Encounter Summary ---
Author Organization [employer] Address [address] [facility] 7t [place] [address] Care Team Providers Care Jack Spooler Tender Name Role Phone Name, Rolf PARKS Primary Care Provider [phone] Martine Broussard PharmD Unavailable [phone] Reason for Visit * Reason Comments Med Refill Encounter Details Date Type Department Care Team (Late st Contact Info) Description 02/02/2024 Refill [facility] [address] [place], [place] [phone] Name, MD Rolf [address] [place] [address] Iron deficiency anemia, unspecified iron deficiency anemia [...] Info) Description 08/18/2024 10:00 AM EDT Telemedicine [facility] [address] [place] [address] Karla Lewis RN 08/18/2024 11:15 AM EDT Office Visit [facility] [address] [place] [address] Name, MD Rolf [address] [place] [address] documented as of this encounter Goals Goal [...] documented as of this encounter Care Teams Jack Spooler Tender Relationship Specialty Start Date End Date Name, MD Rolf [address] [place] [address] PCP - General Family Medicine 10/21/17 Martine Broussard PharmD [address] [place] [address] Pharmacist Internal Medicine 04/20/23 documented as of this encounter
--- OUTSIDE RECORDS SUMMARY | 2024-07-20 11:30 | XMS_ITS | Encounter Summary ---
Author Organization [employer] Address 75 [facility] 7t [place] [address] Care Team Providers Care Educational Recruiter Name Role Phone Name, oRlf PARKS Primary Care Provider [phone] Martine Broussard PharmD Unavailable [phone] Reason for Visit * Reason Comments Med Refill Encounter Details Date Type Department Care Team ([facility] st Contact Info) Description 11/02/2023 [facility]ill [facility] [address] [place], [place] [phone] Name, MD Rolf [address] [place] [address] Anxiety; Chronic pain of left knee Social [...] Description 08/18/2024 10:00 AM EDT Telemedicine [facility] [address] [place] [address] Karla Lewis RN 08/18/2024 11:15 AM EDT Office Visit [facility] [address] [place] [address] Name, MD Rolf [address] [place] [address] documented as of this encounter Goals Goal [...] documented as of this encounter Care Teams Educational Recruiter Relationship Specialty Start Date End Date NameRolf MD [address] [place] [address] PCP - General Family Medicine 10/21/17 Puia, Martine, PharmD [address] [place] [address] Pharmacist Internal Medicine 04/20/23 documented as of this encounter
--- OUTSIDE RECORDS SUMMARY | 2024-07-20 11:30 | XMS_ITS | Encounter Summary ---
Author Organization [email or web address] Address [address] [place] [address] 7 [place] [address] Care Team Providers Care Hot Pipe Gauger Name Role Phone Name, Rolf PARKS Primary Care Provider [phone] Martine Broussard PharmD Unavailable [phone] Reason for Visit * Reason Comments Med Refill Encounter Details Date Type Department Care Team ([facility] st Contact Info) Description 06/13/2024 Refill [facility] 230 [place], [place] [phone] Name, MD Rolf [address] [place] [address] S/P TKR (total knee replacement), left; Anxiety [...] Info) Description 08/18/2024 10:00 AM EDT Telemedicine [facility] [address] [place] [address] Karla Lewis RN 08/18/2024 11:15 AM EDT Office Visit [facility] [address] [place] [address] Name, MD Rolf [address] [place] [address] documented as of this encounter Goals Goal [...] documented as of this encounter Care Teams Hot Pipe Gauger Relationship Specialty Start Date End Date Name, MD Rolf [address] [place] [address] PCP - General Family Medicine 10/21/17 Martine Broussard PharmD [address] [place] [address] Pharmacist Internal Medicine 04/20/23 documented as of this encounter
--- OUTSIDE RECORDS SUMMARY | 2024-07-20 11:31 | XMS_ITS | Encounter Summary ---
Author Organization [employer] Address [address] [facility] 7t [place] [address] Care Team Providers Care Mechanical Operator Name Role Phone Name, Rolf PARKS Primary Care Provider [phone] Martine Broussard PharmD Unavailable [phone] Reason for Visit * Reason Comments Med Refill Encounter Details Date Type Department Care Team (Late st Contact Info) Description 01/28/2024 Refill [facility] [address] [place], [place] [phone] Name, MD Rolf [address] [place] [address] Iron deficiency anemia, unspecified iron deficiency anemia [...] Info) Description 08/18/2024 10:00 AM EDT Telemedicine [facility] [address] [place] [address] Karla Lewis RN 08/18/2024 11:15 AM EDT Office Visit [facility] [address] [place] [address] Name, MD Rolf [address] [place] [address] documented as of this encounter Goals Goal [...] documented as of this encounter Care Teams Mechanical Operator Relationship Specialty Start Date End Date Name, MD Rolf [address] [place] [address] PCP - General Family Medicine 10/21/17 Martine Broussard PharmD [address] [place] [address] Pharmacist Internal Medicine 04/20/23 documented as of this encounter
--- OUTSIDE RECORDS SUMMARY | 2024-07-20 11:31 | XMS_ITS | Encounter Summary ---
Author Organization [employer] Address [address] [place] [address] 7 [place] [address] Care Team Providers Care Precipitation Equipment Tender Name Role Phone Name, Rolf PARKS Primary Care Provider [phone] Martine Broussard PharmD Unavailable [phone] Reason for Visit * Reason Comments Med Refill Encounter Details Date Type Department Care Team (Late st Contact Info) Description 07/05/2024 Refill [facility] 230 [place], [place] [phone] Name, MD Rolf [address] [place] [address] S/P TKR (total knee replacement), left Social [...] EDT Telemedicine [facility] [address] [place] [address] Karla Lewis RN 08/18/2024 11:15 AM EDT Office Visit [facility] [address] [place] [address] Name, MD Rolf [address] [place] [address] documented as of this encounter Goals Goal Patient Goal Type Associated Problems Recent Progress Patient-Stated? Author Hemoglobin A1c < 7 Result Component 6.6( 11:14 AM EST) No PuiaMartine, PharmD Record your blood sugar as directed Result Component No Lance Broussardyssa, PharmD documented as of this encounter Visit Diagnoses Diagnosis S/P TKR (total knee replacement), left documented in this encounter Additional Health Concerns Assessment Noted Time PHQ-9 Depression Total Score: 0 12/06/19 10:09 AM EDT documented as of this encounter Care Teams Precipitation Equipment Tender Relationship Specialty Start Date End Date Name, MD Rolf [address] [place] [address] PCP - General Family Medicine 10/21/17 Martine Broussard PharmD [address] [place] [address] Pharmacist Internal Medicine 04/20/23 documented as of this encounter
--- OUTSIDE RECORDS SUMMARY | 2024-07-20 11:31 | XMS_ITS | Encounter Summary ---
Author Organization [employer] Address [address] [place] [address] 7 [place] [address] Care Team Providers Care Manager New Product Name Role Phone Name, Rolf PARKS Primary Care Provider [phone] Martine Broussard PharmD Unavailable [phone] Reason for Visit * Reason Onset Date Comments Medication Question 06/30/2024 Encounter Details Date Type Department Care Team ([facility] st Contact Info) Description 06/30/2024 Telephone [facility] [address] [place], [place] [phone] Name, MD Rolf [address] [place], [place] [phone] Medication Question Social History Tobacco Use Types [...] Telephone Encounter - Jil Hansen RN - 06/30/2024 9:50 AM EST [facility] to inform of below PCP message. [facility] regarding this. RN informed [facility] that our provider states the pt should not be on both medications and recommends he stays only on the trazodone. Staff member verb alized understanding and states they will call the patient to inform them Rolf Gamble MD: No, he should use one or the other. I would recommend he stays only on the trazodone. * Telephone Encounter - Funmi Benjamin - 06/30/2024 9:39 AM EST Tc from [facility] to report drug interaction, pt was prescribed Trazodone and also taking Mirtazapine med. Pharmacy needs clarify. [phone] Ext [phone] documented in this encounter Plan of Treatment Upcoming Encounters Date Type Department Care Team (Late st Contact Info) Description 08/18/2024 10:00 AM EDT Telemedicine [address] [address] Karla Lewis RN 08/18/2024 11:15 AM EDT Office Visit [facility] [address] [place] [address] Name, MD Rolf [address] [place] [address] documented as of this encounter Goals Goal [...] as of this encounter Care Teams Manager New Product Relationship Specialty Start Date End Date NameRolf MD [address] [place] [address] PCP - General Family Medicine 10/21/17 Martine Broussard, PharmD [address] [place] [address] Pharmacist Internal Medicine 04/20/23 documented as of this encounter
--- OUTSIDE RECORDS SUMMARY | 2024-07-20 11:31 | XMS_ITS | Encounter Summary ---
Author Organization [employer] Address 75 [facility] 7 [place] [address] Care Team Providers Care Comfort Advisor Name Role Phone Name, Rolf PARKS Primary Care Provider [phone] Puia, Martine PharmD Unavailable [phone] Puia, Martine PharmD Unavailable Reason for Visit * Reason Onset Date Comments Med Refill 03/23/2023 Encounter Details Date Type Department Care Team ([facility] st Contact Info) Description 03/23/2023 Telephone [facility] 230 [place], [place] [phone] Name, MD Rolf [address] [place], [place] [phone] Med Refill Social History Tobacco Use Types [...] 2:18 PM EST Medication was sent to [facility] on 12/07/22 with 11 refills. * Telephone Encounter - Nela Whalen - 03/23/2023 2:15 PM EST Tc from pt requesting med refill on; dulaglutide (Trulicity) 3 MG/0.5ML solution pen-injector [facility] [place] [address] SHAUN MCDONOUGH AT [facility] documented in this encounter Plan of Treatment Upcoming Encounters Date Type Department Care Team (Late st Contact Info) Description 08/18/2024 10:00 AM EDT Telemedicine [facility] [address] [place] [address] Karla Lewis RN 08/18/2024 11:15 AM EDT Office Visit [facility] [address] [place] [address] Name, MD Rolf [address] [place] [address] documented as of this encounter Visit Diagnoses Not on filedocumented in this encounter Additional Health Concerns Assessment Noted Time PHQ-9 Depression Total Score: 14 023 1:07 PM EDT documented as of this encounter Care Teams Comfort Advisor Relationship Specialty Start Date End Date Name, MD Rolf [address] [place] [address] PCP - General Family Medicine 10/21/17 Martine Broussard PharmD [address] [place] [address] Pharmacist Internal Medicine 04/20/23 Martine Broussard PharmD [address] [place] [address]196 Pharmacist Internal Medicine 04/20/23 08/11/23 documented as of this encounter
--- OUTSIDE RECORDS SUMMARY | 2024-07-20 11:31 | XMS_ITS | Encounter Summary ---
Author Organization [employer] Address 75 [facility] 7t [place] [address] Care Team Providers Care Health Care Sanitary Technician Name Role Phone Name, Rolf PARKS Primary Care Provider [phone] Martine Broussard PharmD Unavailable [phone] Reason for Visit * Reason Onset Date Comments Received INVESTOR RELATIONS SPECIALIST Agreement, BPI & RYLEY 07/12/2024 Encounter Details Date Type Department Care Team (Late st Contact Info) Description 07/12/2024 Telephone [facility] MEDICINE [address] [place] [address] Karla Lewis, DARYN Received INVESTOR RELATIONS SPECIALIST Agreement, BPI & RYLEY Social History Tobacco Use Types Packs/Day Years [...] Telephone Encounter - Karla Lewis RN - 07/12/2024 7:59 AM EDT Received INVESTOR RELATIONS SPECIALIST Agreement, BPI & RYLEY forms documented in this encounter Plan of Treatment Upcoming Encounters Date Type Department Care Team (Late st Contact Info) Description 08/18/2024 10:00 AM EDT Telemedicine [facility] MEDICINE [address] [place] [address] Karla Lewis RN 08/18/2024 11:15 AM EDT Office Visit [facility] [address] [place] [address] Name, MD Rolf [address] [place] [address] documented as of this encounter Goals Goal [...] as of this encounter Care Teams Health Care Sanitary Technician Relationship Specialty Start Date End Date Name, MD Rolf 230 [place] [address] PCP - General Family Medicine 10/21/17 Martine Broussard, PharmD 230 [place] [address] Pharmacist Internal Medicine 04/20/23 documented as of this encounter
--- OUTSIDE RECORDS SUMMARY | 2024-07-20 11:31 | XMS_ITS | Encounter Summary ---
Author Organization [employer] Address 75 [facility] 7 [place] [address] Care Team Providers Care Worm Grower Name Role Phone Name, Rolf PARKS Primary Care Provider [phone] Martine Broussard PharmD Unavailable [phone] Reason for Visit * Reason Comments Med Refill Encounter Details Date Type Department Care Team (Late st Contact Info) Description 01/14/[address] [facility] MEDICINE 230 [place], [place] [phone] Vivian Barajas, ANP [address] [place] [address] Diabetes mellitus type 2 with neurological manifestations [...] Telemedicine [facility] MEDICINE [address] [place] [address] Karla Leiws RN 08/18/2024 11:15 AM EDT Office Visit [facility] MEDICINE [address] [place] [address] Name, MD Rolf [address] [place] [address] documented as of this encounter Goals Goal [...] documented as of this encounter Care Teams Worm Grower Relationship Specialty Start Date End Date Name, MD Rolf [address] [place] [address] PCP - General Family Medicine 10/21/17 Martine Broussard PharmD [address] [place] [address] Pharmacist Internal Medicine 04/20/23 documented as of this encounter
--- OUTSIDE RECORDS SUMMARY | 2024-07-20 11:31 | XMS_ITS | Encounter Summary ---
Author Organization [employer] Address [address] [place] [address] 7 [place] [address] Care Team Providers Care Typing Secretary Name Role Phone Name, Rolf PARKS Primary Care Provider [phone] Martine Broussard PharmD Unavailable [phone] Reason for Visit * Reason Onset Date Comments Nurse Triage 06/27/2024 Encounter Details Date Type Department Care Team ([facility] st Contact Info) Description 06/27/2024 Telephone [facility] MEDICINE 230 [place], [place] [phone] Name, MD Rolf 230 [place], [place] [phone] Nurse Triage Social History Tobacco Use Types [...] the past 12 months, has t he [employer] gas, oil or water company threatened to [...] encounter Miscellaneous Notes * Telephone Encounter - Tawanna Chaidez LPN - 06/27/2024 10:38 AM EST Triage call returned with BLS # [id number] Delaney to patient Daughter. Daughter reports patient with ongoing cough has been seen and under treatment with [facility] home visit on last Wednesday. Has taken ABT as ordered continues with cough with increased production of phlegm. Patient drinks good amount of water per Daughter no reported fever. Reviewed with patient Daughter home care recommendations, OTC cough syrups and Daughter reports patient taking Nyquil with no noted improvement. Disposition reviewed and Daughter in agreement with plan.ASK/Saadia DA SILVA tomorrow at 1115am Protocol Used: Cough (Adult) Protocol-Based Disposition: See in Office or Video Visit Today or Tomorrow Video visit not offered Positive Triage Question: * Continuous (nonstop) coughing interferes with work or school and no improvement using cough treatment per Care Advice * All higher-acuity triage questions were negative Care Advice Discussed: * Cough Medicines * Cough Syrup With Dextromethorphan * Avoid Tobacco Smoke * Reasons To Call Back - You become worse * Telephone Encounter - Funmi Benjamin - 06/27/2024 10:00 AM EST Symptoms: Chest Congestion, Cough Outcome: Schedule an appointment to be seen within 24 hours Reason: Caller denied all higher acuity questions The caller accepted this outcome. [phone] (patient) Cook Islander documented in this encounter Plan of Treatment Upcoming Encounters Date Type Department Care Team (Late st Contact Info) Description 08/18/2024 10:00 AM EDT Telemedicine [address] [address] Karla Lewis RN 08/18/2024 11:15 AM EDT Office Visit [address] [address] Name, MD Rolf [address] [place] [address] documented as of this encounter Goals Goal [...] documented as of this encounter Care Teams Typing Secretary Relationship Specialty Start Date End Date NameRolf MD [address] [place] [address] [phone] PCP - General Family Medicine 10/21/17 Puia, Martine, PharmD [address] [place] [address] [phone] Pharmacist Internal Medicine 04/20/23 documented as of this encounter
--- OUTSIDE RECORDS SUMMARY | 2024-07-20 11:31 | XMS_ITS | Encounter Summary ---
Author Organization [employer] Address [address] [place] [address] 7 [place] [address] Care Team Providers Care Home Help Aide Name Role Phone Name, Rolf PARKS Primary Care Provider [phone] Martine Broussard PharmD Unavailable [phone] Reason for Visit * Reason Onset Date Comments Nurse Triage 06/23/2024 Encounter Details Date Type Department Care Team ([facility] st Contact Info) Description 06/23/2024 Telephone [facility] MEDICINE 230 [place], [place] [phone] Name, MD Rolf 230 [place], [place] [phone] Nurse Triage Social History Tobacco Use Types [...] the past 12 months, has t he [employer], gas, oil or water company threatened to [...] Telephone Encounter - Shilpi Valdez RN - 06/23/2024 10:51 AM EST Images from the original note were not included. No carpet winder needed as this sba underwriter speaks Bruneian. Call returned to Hong Antoine to triage below. Spoke with Sholal daughter who is on HIPAA. Reports pt having productive cough x 1 week. Denies any other HEIDY sx. Subjective fevers. Negative homekit for COVID-19 3 days ago. Denies any wheezing. Using Inhaler Q4H. Using Nebulizer Q6H. Pt and daughter unable to come into [facility] today. Agree to [facility] for eval. Confirmed demographics and allergies. Protocol Used: Cough (Adult) Protocol-Based Disposition: See in Office or Video Visit Today Video visit offer not recorded Positive Triage Question: * Known COPD or other severe lung disease (i.e., bronchiectasis, cystic fibrosis, lung surgery) andsymptoms getting worse (i.e., increased sputum purulence or amount, increased breathing difficulty)< br /> * All higher-acuity triage questions were negative Care Advice Discussed: * Reassurance and Education - Cough * Cough Medicines * Coughing Spells * Prevent Dehydration * Reasons To Call Back - Difficulty breathing - You become worse * Telephone Encounter - Reaquanclive Moreno - 06/23/2024 10:42 AM EST Symptom: Cough Outcome: Schedule an appointment to be seen within 24 hours Reason: Caller denied all higher acuity questions The caller accepted this outcome. documented in this encounter Plan of Treatment Upcoming Encounters Date Type Department Care Team (Late st Contact Info) Description 08/18/2024 10:00 AM EDT Telemedicine [address] [address] Karla Lewis RN 08/18/2024 11:15 AM EDT Office Visit [facility] MEDICINE [address] [place] [address] Name, MD Rolf [address] [place] [address] documented as of this encounter Goals Goal Patient Goal Type Associated Problems Recent Progress Patient-Stated? Author Hemoglobin A1c < 7 Result Component 6.6( 11:14 AM EST) No Puia, Martine, PharmD Record your blood sugar as directed Result Component No Puia, Amrtine, PharmD documented as of this encounter Visit Diagnoses Not on filedocumented in this encounter Additional Health Concerns Assessment Noted Time PHQ-9 Depression Total Score: 0 12/06/19 24 10:09 AM EDT documented as of this encounter Care Teams Home Help Aide Relationship Specialty Start Date End Date Rolf Gamble MD [address] [place] [address] PCP - General Family Medicine 10/21/17 Puia, Martine, PharmD [address] [place] [address]378 Pharmacist Internal Medicine 04/20/23 documented as of this encounter
--- OUTSIDE RECORDS SUMMARY | 2024-07-20 11:31 | XMS_ITS | Encounter Summary ---
Author Organization [employer] Address [address] [place] [address] 7 [place] [address] Care Team Providers Care Housekeeper Nanny Name Role Phone Name, Rolf PARKS Primary Care Provider [phone] Martine Broussard PharmD Unavailable Reason for Visit * Reason Onset Date Comments Med Refill 06/26/2024 Encounter Details Date Type Department Care Team (Late st Contact Info) Description 06/26/2024 Refill [facility] MEDICINE 230 [place], [place] [phone] Name, MD Rolf 230 [place] [address] Osteoarthritis of both knees, unspecified osteoarthritis type [...] * Telephone Encounter - Jw Moreno - 06/26/2024 10:12 AM EST TC from pt requesting medication refill. Medications needing refill : traZODone (Desyrel) 50 MG tablet To be sent to: [id number] [place] [address] SHAUN MCDONOUGH AT [facility] documented in this encounter Plan of Treatment Upcoming Encounters Date Type Department Care Team (Late st Contact Info) Description 08/18/2024 10:00 AM EDT Telemedicine [facility] MEDICINE [address] [place] [address] [phone] Karla Lewis RN 08/18/2024 11:15 AM EDT Office Visit [facility] MEDICINE [address] [place] [address] Name, MD Rolf [address] [place] [address] documented as of this encounter Goals Goal Patient Goal Type Associated Problems Recent Progress Patient-Stated? Author Hemoglobin A1c < 7 Result Component 6.6( 5 11:14 AM EST) No Martine Broussard, PharmLexi Record your blood sugar as directed Result Component No Martine Broussard PharmD documented as of this encounter Visit Diagnoses Diagnosis Osteoarthritis of both knees, unspecified osteoarthritis type documented in this encounter Additional Health Concerns Assessment Noted Time PHQ-9 Depression Total Score: 0 12/06/19 24 10:09 AM EDT documented as of this encounter Care Teams Housekeeper Nanny Relationship Specialty Start Date End Date Name, MD Rolf 230 [place] [address] PCP - General Family Medicine 10/21/17 Martine Broussard PharmD 230 [place] [address] Pharmacist Internal Medicine 04/20/23 documented as of this encounter
--- OUTSIDE RECORDS SUMMARY | 2024-07-20 11:31 | XMS_ITS | Encounter Summary ---
Author Organization [email or web address] Address [address] [place] [address] 7 [place] [address] Care Team Providers Care Geography Professor Name Role Phone Name, Rolf PARKS Primary Care Provider [phone] Martine Broussard PharmD Unavailable [phone] Reason for Visit * Reason Comments Med Refill Encounter Details Date Type Department Care Team (Late st Contact Info) Description 07/02/2024 Refill [facility] MEDICINE 230 [place], [place] [phone] Name, MD Rolf [address] [place] [address] Iron deficiency anemia, unspecified iron deficiency anemia [...] Description 08/18/2024 10:00 AM EDT Telemedicine [facility] MEDICINE [address] [place] [address] Karla Lewis RN 08/18/2024 11:15 AM EDT Office Visit [facility] MEDICINE [address] [place] [address] Name, MD Rolf [address] [place] [address] documented as of this encounter Goals Goal [...] documented as of this encounter Care Teams Geography Professor Relationship Specialty Start Date End Date Name, MD Rolf [address] [place] [address] PCP - General Family Medicine 10/21/17 Martine Broussard PharmD [address] [place] [address] Pharmacist Internal Medicine 04/20/23 documented as of this encounter
--- OUTSIDE RECORDS SUMMARY | 2024-07-20 11:31 | XMS_ITS | Encounter Summary ---
Author Organization [employer] Address [address] [place] [address] 7 [place] [address] Care Team Providers Care Sales Designer Name Role Phone Name, Rolf PARKS Primary Care Provider [phone] Martine Broussard PharmD Unavailable [phone] Reason for Visit * Reason Onset Date Comments FYI 06/27/2024 Encounter Details Date Type Department Care Team ([facility] st Contact Info) Description 06/27/2024 Telephone [facility] MEDICINE 230 [place], [place] [phone] Name, MD Rolf 230 [place], [place] [phone] FYI Social History Tobacco Use Types Packs/Day [...] Telephone Encounter - Funmi Benjamin - 06/27/2024 10:02 AM EST Tc from pt daughter to report she had to call [facility] for an emergency, upon arriving home they realized that the pt had pneumonia, fluid in one lung, they administered antibiotics immediately. Pt daughter states pt vomited and that helped her get rid of some of the phlegm which indicates her lungs areimproving. Pt has symptoms of cough and chest pain for which the message was sent to triage nurse. documented in this encounter Plan of Treatment Upcoming Encounters Date Type Department Care Team (Late st Contact Info) Description 08/18/2024 10:00 AM EDT Telemedicine [facility] MEDICINE [address] [place] [address] [phone] Karla Lewis RN 08/18/2024 11:15 AM EDT Office Visit [facility] MEDICINE [address] [place] [address] Name, MD Rolf [address] [place] [address] documented as of this encounter Goals Goal Patient Goal Type Associated Problems Recent Progress Patient-Stated? Author Hemoglobin A1c < 7 Result Component 6.6( 5 11:14 AM EST) No Puia, Martine, PharmD Record your blood sugar as directed Result Component No CarlosiaLanceMartine, PharmD documented as of this encounter Visit Diagnoses Not on filedocumented in this encounter Additional Health Concerns Assessment Noted Time PHQ-9 Depression Total Score: 0 12/06/19 24 10:09 AM EDT documented as of this encounter Care Teams Sales Designer Relationship Specialty Start Date End Date Name, MD Rolf [address] [place] [address] PCP - General Family Medicine 10/21/17 Martine Broussard, PharmD [address] [place] [address] Pharmacist Internal Medicine 04/20/23 documented as of this encounter
--- OUTSIDE RECORDS SUMMARY | 2024-07-20 11:31 | XMS_ITS | Encounter Summary ---
Author Organization [employer] Address [address] [place] [address] 7 [place] [address] Care Team Providers Care Call Center Assistant Name Role Phone NameRolf MD Primary Care Provider Martine Broussard PharmD Unavailable [phone] Reason for Visit * Reason Onset Date Comments Durable Medical Equipment 07/03/2024 Encounter Details Date Type Department Care Team (Late st Contact Info) Description 07/03/2024 Telephone [facility] MEDICINE 230 [place], [place] [phone] Name, MD Rolf 230 [place], [place] [phone] Durable Medical Equipment Social History Tobacco Use [...] * Telephone Encounter - Mandy Strange - 07/14/2024 11:41 AM EDT RX for Disposable underpads/bedpads and Recliner signed and faxed to [facility]. Confirmation received andsent to scan. If patient calls to check status on above, please advise them to contact [facility] field care coordinator . * Telephone Encounter - Mandy Strange - 07/10/2024 11:36 AM EDT TC to pt for clarification on DME request. Spoke with Annetta who confirmed pt requesting power liftrecliner and also disposable bed pads (4/day). DME Rx generated and placed on pcp desk for review and signature; Rx to be faxed to [facility] DME Dept once signed. * Telephone Encounter - Kip Grant - 07/03/2024 11:26 AM EST Tc from pt daughter requesting DME for a Permanent Recliner that should be covered by Insurance andBed Pads . Contact pt at [phone] documented in this encounter Plan of Treatment Upcoming Encounters Date Type Department Care Team (Late st Contact Info) Description 08/18/2024 10:00 AM EDT Telemedicine [facility] MEDICINE [address] [place] [address] Karla Lewis RN 08/18/2024 11:15 AM EDT Office Visit [facility] MEDICINE [address] [place] [address] Name, MD Rolf [address] [place] [address] documented as of this encounter Goals Goal [...] documented as of this encounter Care Teams Call Center Assistant Relationship Specialty Start Date End Date Name, MD Rolf [address] [place] [address] PCP - General Family Medicine 10/21/17 Puia, Martine, PharmD [address] [place] [address] Pharmacist Internal Medicine 04/20/23 documented as of this encounter
--- OUTSIDE RECORDS SUMMARY | 2024-07-20 11:31 | XMS_ITS | Encounter Summary ---
Author Organization [employer] Address 75 [facility] 7t [place] [address] Care Team Providers Care Safemaker Name Role Phone Name, Rolf PARKS Primary Care Provider [phone] Martine Broussard PharmD Unavailable [phone] Reason for Visit * Reason Comments Med Refill Encounter Details Date Type Department Care Team (Late st Contact Info) Description 01/28/2024 Refill [facility] MEDICINE 230 [place], [place] [phone] Name, MD Rolf 230 [place] [address] Iron deficiency anemia, unspecified iron deficiency anemia [...] Description 08/18/2024 10:00 AM EDT Telemedicine [facility] MEDICINE [address] [place] [address] Karla Lewis RN 08/18/2024 11:15 AM EDT Office Visit [facility] MEDICINE [address] [place] [address] Name, MD Rolf [address] [place] [address] documented as of this encounter Goals Goal [...] documented as of this encounter Care Teams Safemaker Relationship Specialty Start Date End Date Name, MD Rolf 230 [place] [address] PCP - General Family Medicine 10/21/17 Martine Broussard PharmD 230 [place] [address] Pharmacist Internal Medicine 04/20/23 documented as of this encounter
--- OUTSIDE RECORDS SUMMARY | 2024-07-20 11:31 | XMS_ITS | Encounter Summary ---
Author Organization [employer] Address [address] [place] [address] 7 [place] [address] Care Team Providers Care Light Industrial Supervisor Name Role Phone Name, Rolf PARKS Primary Care Provider [phone] Martine Broussard PharmD Unavailable [phone] Reason for Visit * Reason Comments Med Refill Encounter Details Date Type Department Care Team (Late st Contact Info) Description 07/03/2024 Refill [facility] MEDICINE 230 [place], [place] [phone] Name, MD Rolf 230 [place] [address] S/P TKR (total knee replacement), left Social [...] Info) Description 08/18/2024 10:00 AM EDT Telemedicine [facility] MEDICINE [address] [place] [address] Karla Lewis RN 08/18/2024 11:15 AM EDT Office Visit [facility] MEDICINE [address] [place] [address] Name, MD Rolf [address] [place] [address] documented as of this encounter Goals Goal [...] documented as of this encounter Care Teams Light Industrial Supervisor Relationship Specialty Start Date End Date Name, MD Rolf 230 [place] [address] PCP - General Family Medicine 10/21/17 Martine Broussard PharmD 230 [place] [address] Pharmacist Internal Medicine 04/20/23 documented as of this encounter
--- OUTSIDE RECORDS SUMMARY | 2024-07-20 11:31 | XMS_ITS | Encounter Summary ---
Author Organization [employer] Address [address] [place] [address] 7 [place] [address] Care Team Providers Care Domestic Technician Name Role Phone Name, Rolf PARKS Primary Care Provider [phone] Martine Broussard PharmD Unavailable [phone] Reason for Visit * Reason Onset Date Comments Medication Question 06/29/2024 Encounter Details Date Type Department Care Team ([facility] st Contact Info) Description 06/29/[address] [facility] 230 [place], [place] [phone] Name, MD Rolf 230 [place], [place] [phone] Medication Question Social History Tobacco Use Types [...] Telephone Encounter - Jil Hansen RN - 06/29/2024 4:15 PM EST TC placed to [facility] with [facility] to inform of below PCP message. RN spoke to [facility] staff member who states she thinks it was rejected because the Mirtazapine was just filled and does not need refill. RN reiterated to [facility] staff that our provider states the pt should not be on both medications and recommends he stays only on the trazodone. Staff member verbalized understanding. Rolf Gamble MD: No, he should use one or the other. I would recommend he stays only on the trazodone. * Telephone Encounter - Rolf Gamble MD - 06/29/2024 12:19 PM EST No, he should use one or the other. I would recommend he stays only on the trazodone * Telephone Encounter - Kip Grant - 06/29/2024 8:50 AM EST Tc from [facility] with [facility] Stating that they received Prescription for traZODone (Desyrel) 50 MGtablet but there stating that there is a Drug interaction with another medication hat is prescribedby another doctor which is Mirtazapine 16 MG. She is wondering if pt should continue the medication due to the risk of mixing both. Contact Martine at [phone] Ext [phone] documented in this encounter Plan of Treatment Upcoming Encounters Date Type Department Care Team (Late st Contact Info) Description 08/18/2024 10:[address] [facility] [address] [place] [address] Karla Lewis RN 08/18/2024 11:15 AM EDT Office Visit [facility] [address] [place] [address] Rolf Gamble MD [address] [place] [address] documented as of this encounter Goals Goal [...] documented as of this encounter Care Teams Domestic Technician Relationship Specialty Start Date End Date Rolf Gamble MD [address] [place] [address] PCP - General Family Medicine 10/21/17 Martine Broussard, PharmD [address] [place] [address] Pharmacist Internal Medicine 04/20/23 documented as of this encounter
--- OUTSIDE RECORDS SUMMARY | 2024-07-20 11:31 | XMS_ITS | Encounter Summary ---
Author Organization [employer] Address [address] [facility] 7t [place] [address] Care Team Providers Care Field Operations Supervisor Name Role Phone Name, Rolf PARKS Primary Care Provider Martine Broussard PharmD Unavailable [phone] Reason for Visit * Reason Comments Med Refill Encounter Details Date Type Department Care Team (Late st Contact Info) Description 01/31/2024 Refill [facility] [address] [place], [place] [phone] Name, MD Rolf 230 [place] [address] Chronic pain of left knee; Anxiety; Osteoarthritis [...] Info) Description 08/18/2024 10:00 AM EDT Telemedicine [address] [address] Karla Lewis RN 08/18/2024 11:15 AM EDT Office Visit [facility] [address] [place] [address] Name, MD Rolf [address] [place] [address] documented as of this encounter Goals Goal [...] as of this encounter Care Teams Field Operations Supervisor Relationship Specialty Start Date End Date Name, MD Rolf 230 [place] [address] PCP - General Family Medicine 10/21/17 Martine Broussard PharmD 230 [place] [address] Pharmacist Internal Medicine 04/20/23 documented as of this encounter
--- OUTSIDE RECORDS SUMMARY | 2024-07-20 11:31 | XMS_ITS | Encounter Summary ---
Author Organization [employer] Address [address] [place] [address] 7 [place] [address] Care Team Providers Care Svp Marketing Name Role Phone Name, Rolf PARKS Primary Care Provider [phone] Martine Broussard PharmD Unavailable [phone] Reason for Referral * Medications - Closed Specialty Diagnoses / Procedures Referred By Contac t Referred To Contact Diagnoses S/P TKR (total knee replacement), left Rolf Gamble MD 230 [place] [address] Phone: tel: fax: Referral ID Status Reason Start Date Expiration Date Visits Re quested Visits Authorized [id number] Closed 1 1 Reason for Visit * Reason Onset Date Comments Med Refill 06/27/2024 Encounter Details Date Type Department Care Team (Late st Contact Info) Description 06/27/2024 Refill [facility] 230 [place], [place] [phone] Karla Lewis RN S/P TKR (total knee replacement), left Social [...] 08/18/2024 10:00 AM EDT Telemedicine [facility] [address] [place] [address] Karla Lewis RN 08/18/2024 11:15 AM EDT Office Visit [facility] [address] [place] [address] Name, MD Rolf [address] [place] [address] documented as of this encounter Goals Goal [...] documented as of this encounter Care Teams Svp Marketing Relationship Specialty Start Date End Date Name, MD Rolf 230 [place] [address] PCP - General Family Medicine 10/21/17 Martine Broussard PharmD 230 [place] [address] Pharmacist Internal Medicine 04/20/23 documented as of this encounter
--- OUTSIDE RECORDS SUMMARY | 2024-07-20 11:31 | XMS_ITS | Encounter Summary ---
Author Organization [employer] Address [address] [facility] 7t [place] [address] Care Team Providers Care Vice President Of Software Development Name Role Phone Name, Rolf PARKS Primary Care Provider [phone] Martine Broussard PharmD Unavailable [phone] Reason for Visit * Reason Comments Med Refill Encounter Details Date Type Department Care Team (Late st Contact Info) Description 01/18/2024 Refill [facility] 230 [place], [place] [phone] Name, MD Rolf 230 [place] [address] Iron deficiency anemia, unspecified iron deficiency anemia [...] Info) Description 08/18/2024 10:00 AM EDT Telemedicine [facility] [address] [place] [address] Karla Lewis RN 08/18/2024 11:15 AM EDT Office Visit [facility] [address] [place] [address] Name, MD Rolf [address] [place] [address] documented as of this encounter Goals Goal [...] documented as of this encounter Care Teams Vice President Of Software Development Relationship Specialty Start Date End Date Name, MD Rolf 230 [place] [address] PCP - General Family Medicine 10/21/17 Martine Broussard PharmD 230 [place] [address] Pharmacist Internal Medicine 04/20/23 documented as of this encounter
--- OUTSIDE RECORDS SUMMARY | 2024-07-20 11:31 | XMS_ITS | Encounter Summary ---
Author Organization [employer] Address [address] [place] [address] 7t [place] [address] Care Team Providers Care Job Placement Counselor Name Role Phone Name, Rolf PARKS Primary Care Provider [phone] Martine Broussard PharmD Unavailable [phone] Reason for Visit * Reason Onset Date Comments No Show 06/28/2024 Encounter Details Date Type Department Care Team (Late st Contact Info) Description 06/28/2024 Refill [facility] 230 [place], [place] [phone] Name, MD Rolf 230 [place] [address] Acute pain of left knee (Primary Dx) Social History Tobacco Use Types Packs/Day Years [...] t he electric, gas, oil or water [employer] threatened to shut off services in your [...] as of this encounter Miscellaneous Notes * Addendum Note - Dominic Guerra RN - 06/30/2024 12:32 PM ESTAddended by: DOMINIC GUERRA on: 06/30/2024 12:32 PM Modules accepted: Orders * Telephone Encounter - Dominic Guerra RN - 06/30/2024 12:26 PM EST T/C to pt via [employer] [facility] #[id number]. Pt's daughter Annetta answered. Advised of message from PCP re: short course of Ibuprofen 600mg. [facility] requests that this rx be sent to [facility] as it is faster than [facility]. [facility] confirms that [facility] will remain preferred pharmacy. Advised request will be sent to pcp. * Addendum Note - Rolf Parikh MD - 06/30/2024 11:39 AM ESTAddended by: ROLF PARIKH on: 06/30/2024 11:39 AM Modules accepted: Orders * Telephone Encounter - Rolf Parikh MD - 06/30/2024 11:39 AM EST I will send a short course of the Ibuprofen to the pharmacy * Telephone Encounter - Dominic Guerra RN - 06/30/2024 11:01 AM EST Pt evaluated in [facility] 06/28/24 for c/o head, neck and thoracic pain. Imaging reassuring per note. Pt was discharged home in stable condition with recommendation to rest, ice and elevate and use tylenol or ibuprofen as needed for pain. T/C to pt for status check via [employer] #[id number]. Pt's daughter Annetta reports that pt still has pain but does feel better. States pt does not have ibuprofen. [facility] requesting rx for Ibuprofen 800 mg for pt. Pt c/o 10/10 pain to left knee and back. Reports left knee is not swollen or red. Reports recent surgery on knee cap. Requesting oxycodone-acetaminophen 5-325 mg to be increased to TID. Advised request will be sent to pcp. [facility] availability reviewed for worsening symptoms. * Telephone Encounter - Funmi Tierney - 06/28/2024 11:31 AM EST Patient no show to [facility] appointment on 06/28/24 with Mirna Page. documented in this encounter Plan of Treatment Upcoming Encounters Date Type Department Care Team (Late st Contact Info) Description 08/18/2024 10:00 AM EDT Telemedicine [facility] MED[facility]INE [address] [place] [address] Karla Lewis, DARYN 08/18/2024 11:15 AM EDT Office Visit [facility] 230 [place] [address] Name, MD Rolf [address] [place] [address] documented as of this encounter Goals Goal Patient Goal Type Associated Problems Recent Progress Patient-Stated? Author Hemoglobin A1c < 7 Result Component 6.6( 5 11:14 AM EST) No Martine Broussard, PharmD Record your blood sugar as directed Result Component No Martine Broussard, PharmD documented as of this encounter Visit Diagnoses Diagnosis Acute pain of left knee- Primary documented in this encounter Additional Health Concerns Assessment Noted Time PHQ-9 Depression Total Score: 0 12/06/19 24 10:09 AM EDT documented as of this encounter Care Teams Job Placement Counselor Relationship Specialty Start Date End Date Name, MD Rolf [address] [place] [address] PCP - General Family Medicine 10/21/17 Martine Broussard, PharmD [address] [place] [address] Pharmacist Internal Medicine 04/20/23 documented as of this encounter
== END 2024-07-20 10:33 | disposition home or self-care (01) ==
LOC: HO.HPS 10:09
PROVIDERS: PCP Internal Medicine Geriatric Medicine; Visit Provider Hospitalist
DX: G47.33 Obstructive sleep apnea (adult) (pediatric) (principal); J41.0 Simple chronic bronchitis; J84.9 Interstitial pulmonary disease, unspecified; J43.9 Emphysema, unspecified; J84.10 Pulmonary fibrosis, unspecified
CPT/HCPCS: 99214

== ENCOUNTER → 2024-07-20 10:08 | Outpatient (BNVA) | payer OTHER, SELFPAY | PROVIDERS: PCP Internal Medicine Geriatric Medicine; Visit Provider Hospitalist | DX: G47.33 Obstructive sleep apnea (adult) (pediatric) (principal); J41.0 Simple chronic bronchitis; J84.9 Interstitial pulmonary disease, unspecified; J43.9 Emphysema, unspecified; J84.10 Pulmonary fibrosis, unspecified | CPT/HCPCS: 99212 ==

== ENCOUNTER 2024-08-24 09:55 | Outpatient (REF) | payer OTHER, SELFPAY ==
[2024-08-24 11:13] LABS: MANUAL DIFF FLAG NO
--- OUTSIDE RECORDS SUMMARY | 2024-08-24 11:13 | XMS_ITS | Encounter Summary ---
Author Organization [employer] Address [address] [facility] 7t [place] [address] Care Team Providers Care J2Ee Engineer Name Role Phone Name, Rolf PARKS Primary Care Provider [phone] Puia, Martine PharmD Unavailable [phone] Puia, Martine PharmD Unavailable Reason for Visit * Reason Comments Med Refill Encounter Details Date Type Department Care Team (Late st Contact Info) Description 05/31/2023 Refill [facility] [address] [place], [place] [phone] Delisa Hilliard MD 230 [place] [address] Osteoarthritis of knee, unspecified laterality, unspecified osteoarthritis [...] Care Team (Late st Contact Info) Description 10/27/2024 1:30 PM EDT Telemedicine [facility] [address] [place] [address] Karla Lewis RN 12/05/2024 10:45 AM EDT Office Visit [facility] [address] [place] [address] Name, MD Rolf [address] [place] [address] documented as of this encounter Goals Goal [...] documented as of this encounter Care Teams J2Ee Engineer Relationship Specialty Start Date End Date NameRolf MD [address] [place] [address] PCP - General Family Medicine 10/21/17 Puia, Martine, PharmD 230 [place] [address] Pharmacist Internal Medicine 04/20/23 Martine Broussard PharmD 230 [place] [address] Pharmacist Internal Medicine 04/20/23 08/11/23 documented as of this encounter
--- OUTSIDE RECORDS SUMMARY | 2024-08-24 11:13 | XMS_ITS | Encounter Summary ---
Author Organization [employer] Address [address] [facility] 7t [place] [address] Care Team Providers Care Acid Dipper Name Role Phone Name, Rolf PARKS Primary Care Provider [phone] Puia, Martine PharmD Unavailable [phone] Puia, Martine PharmD Unavailable [phone] Reason for Visit * Reason Onset Date Comments Med Refill 05/07/2023 Encounter Details Date Type Department Care Team (Late st Contact Info) Description 05/07/2023 Refill [facility] 230 [place], [place] [phone] Name, MD Rolf 230 [place], [place] [phone] Osteoarthritis of knee, unspecified laterality, unspecified osteoarthritis [...] 50 MG tablet To be sent to: [facility] documented in this encounter Plan of Treatment Upcoming Encounters Date Type Department Care Team (Late st Contact Info) Description 10/27/2024 1:30 PM EDT Telemedicine [facility] [address] [place] [address] Karla Lewis RN 12/05/2024 10:45 AM EDT Office Visit [facility] [address] [place] [address] [phone] Name, MD Rolf [address] [place] [address] documented as of this encounter Goals Goal [...] documented as of this encounter Care Teams Acid Dipper Relationship Specialty Start Date End Date Name, MD Rolf [address] [place] [address] PCP - General Family Medicine 10/21/17 Martine Broussard PharmD [address] [place] [address] Pharmacist Internal Medicine 04/20/23 Martine Broussard PharmD [address] [place] [address] Pharmacist Internal Medicine 04/20/23 08/11/23 documented as of this encounter
--- OUTSIDE RECORDS SUMMARY | 2024-08-24 11:13 | XMS_ITS | Encounter Summary ---
Author Organization [employer] Address [address] [facility] 7 [place] [address] Care Team Providers Care Post Graduate Internship Name Role Phone Name, Rolf PARKS Primary Care Provider [phone] Puia, Martine PharmD Unavailable [phone] Puia, Martine PharmD Unavailable [phone] Reason for Visit * Reason Onset Date Comments Med Refill 05/21/2023 Encounter Details Date Type Department Care Team (Late st Contact Info) Description 05/21/2023 Telephone [facility] 230 [place], [place] [phone] Name, MD Rolf 230 [place], [place] [phone] Med Refill Social History Tobacco Use Types [...] 9:48 AM EST Medication was sent to [facility] on 04/20/23 with 11 refills. * Telephone Encounter - Brown Giraldo - 05/21/2023 9:30 AM EST TC from pt requesting medication refill. Medications needing refill : dulaglutide (Trulicity) 3 MG/0.5ML solution pen-injector To be sent to: [facility] [place], [place] - [address] [place] [address] documented in this encounter Plan of Treatment Upcoming Encounters Date Type Department Care Team (Late st Contact Info) Description 10/27/2024 1:30 PM EDT Telemedicine [facility] [address] [place] [address] Karla Lewis RN 12/05/2024 10:45 AM EDT Office Visit [facility] [address] [place] [address] Name, MD Rolf [address] [place] [address] documented as of this encounter Goals Goal [...] documented as of this encounter Care Teams Post Graduate Internship Relationship Specialty Start Date End Date Name, MD Rolf [address] [place] [address] PCP - General Family Medicine 10/21/17 Martine Broussard PharmD [address] [place] [address] Pharmacist Internal Medicine 04/20/23 Martine Broussard PharmD [address] [place] [address] Pharmacist Internal Medicine 04/20/23 08/11/23 documented as of this encounter
--- OUTSIDE RECORDS SUMMARY | 2024-08-24 11:14 | XMS_ITS | Encounter Summary ---
Author Organization [employer] Address [address] [facility] 7t [place] [address] Care Team Providers Care Installation Drafter Name Role Phone Name, Rolf PARKS Primary Care Provider [phone] Puia, Martine PharmD Unavailable Puia, Martine PharmD Unavailable [phone] Reason for Visit * Reason Comments Med Refill Encounter Details Date Type Department Care Team (Late st Contact Info) Description 06/02/2023 Refill [facility] [address] [place], [place] [phone] Delisa Hilliard MD 230 [place] [address] Osteoarthritis of knee, unspecified laterality, unspecified osteoarthritis [...] Info) Description 10/27/2024 1:30 PM EDT Telemedicine [facility] [address] [place] [address] Karla Lewis RN 12/05/2024 10:45 AM EDT Office Visit [facility] [address] [place] [address] Name, MD Rolf [address] [place] [address] documented as of this encounter Goals Goal [...] documented as of this encounter Care Teams Installation Drafter Relationship Specialty Start Date End Date NameRolf MD [address] [place] [address] PCP - General Family Medicine 10/21/17 Puia, Martine, PharmD 230 [place] [address] Pharmacist Internal Medicine 04/20/23 Martine Broussard PharmD 230 [place] [address] Pharmacist Internal Medicine 04/20/23 08/11/23 documented as of this encounter
--- OUTSIDE RECORDS SUMMARY | 2024-08-24 11:14 | XMS_ITS | Encounter Summary ---
Author Organization [employer] Address [address] [place] [address] 7t [place] [address] Care Team Providers Care Consumer Product Advisor Name Role Phone Name, Rolf PARKS Primary Care Provider [phone] Martine Broussrad PharmD Unavailable [phone] Reason for Visit * Reason Comments Med Refill Encounter Details Date Type Department Care Team (Late st Contact Info) Description 04/03/2024 Refill [facility] MED[facility]INE 230 [place], [place] [phone] Name, MD Rolf 230 [place] [address] Abnormal chest x-ray; Tobacco use; Type 2 diabetes mellitus with hyperglycemia, without long-term current use of insulin ([facility]); Osteoarthritis of knee, unspecified laterality, unspecified osteoarthritis [...] Info) Description 10/27/2024 1:30 PM EDT Telemedicine [facility] MEDICINE [address] [place] [address] Karla Lewis RN 12/05/2024 10:45 AM EDT Office Visit [facility] MED[facility]INE [address] [place] [address] Name, MD Rolf [address] [place] [address] documented as of this encounter Goals Goal [...] hyperglycemia, without long-term current use of insulin ([facility]) Osteoarthritis of knee, unspecified laterality, unspecified osteoarthritis type Iron deficiency anemia, unspecified iron deficiency anemia type documented in this encounter Additional Health Concerns Assessment Noted Time PHQ-9 Depression Total Score: 0 12/06/19 24 10:09 AM EDT documented as of this encounter Care Teams Consumer Product Advisor Relationship Specialty Start Date End Date Name, MD Rolf 230 [place] [address] PCP - General Family Medicine 10/21/17 Martine Broussard PharmD 230 [place] [address] Pharmacist Internal Medicine 04/20/23 documented as of this encounter
--- OUTSIDE RECORDS SUMMARY | 2024-08-24 11:14 | XMS_ITS | Encounter Summary ---
Author Organization [employer] Address [address] [facility] 7t [place] [address] Care Team Providers Care Animal Park Code Enforcement Officer Name Role Phone Name, Rolf PARKS Primary Care Provider [phone] Puia, Martine PharmD Unavailable [phone] Puia, Martine PharmD Unavailable Reason for Visit * Reason Comments Med Refill Encounter Details Date Type Department Care Team ([facility] st Contact Info) Description 05/31/2023 Refill [facility] 230 [place], [place] [phone] Mary Mcguire DO 230 [place], [place] [phone] Osteoarthritis of knee, unspecified laterality, unspecified osteoarthritis [...] Info) Description 10/27/2024 1:30 PM EDT Telemedicine [facility] [address] [place] [address] Karla Lewis RN 12/05/2024 10:45 AM EDT Office Visit [facility] [address] [place] [address] Name, MD Rolf [address] [place] [address] documented as of this encounter Goals Goal [...] documented as of this encounter Care Teams Animal Park Code Enforcement Officer Relationship Specialty Start Date End Date NameRolf MD [address] [place] [address] PCP - General Family Medicine 10/21/17 PuiaLanceMartine, PharmD 230 [place] [address] Pharmacist Internal Medicine 04/20/23 Martine Broussard PharmD 230 [place] [address] Pharmacist Internal Medicine 04/20/23 08/11/23 documented as of this encounter
--- OUTSIDE RECORDS SUMMARY | 2024-08-24 11:14 | XMS_ITS | Encounter Summary ---
Author Organization [employer] Address [address] [facility] 7t [place] [address] Care Team Providers Care Biology Tutor Name Role Phone Name, Rolf PARKS Primary Care Provider [phone] Puia, Martine PharmD Unavailable Puia, Martine PharmD Unavailable [phone] Reason for Visit * Reason Comments Med Refill Encounter Details Date Type Department Care Team (Late st Contact Info) Description 06/02/2023 Refill [facility] [address] [place], [place] [phone] Delisa Hilliard MD 230 [place] [address] Osteoarthritis of knee, unspecified laterality, unspecified osteoarthritis [...] Info) Description 10/27/2024 1:30 PM EDT Telemedicine [facility] MEDICINE [address] [place] [address] Karla Lewis RN 12/05/2024 10:45 AM EDT Office Visit [facility]INE [address] [place] [address] Name, MD Rolf [address] [place] [address] documented as of this encounter Goals Goal [...] documented as of this encounter Care Teams Biology Tutor Relationship Specialty Start Date End Date NameRolf MD [address] [place] [address] PCP - General Family Medicine 10/21/17 Puia, Martine, PharmD 230 [place] [address] Pharmacist Internal Medicine 04/20/23 Martine Broussard PharmD 230 [place] [address] Pharmacist Internal Medicine 04/20/23 08/11/23 documented as of this encounter
--- OUTSIDE RECORDS SUMMARY | 2024-08-24 11:14 | XMS_ITS | Encounter Summary ---
Author Organization [employer] Address 75 [facility] 7t [place] [address] Care Team Providers Care Auto Body Service Mechanic Name Role Phone Name, Rolf PARKS Primary Care Provider [phone] Martine Broussard PharmD Unavailable [phone] Reason for Visit * Reason Comments Med Refill Encounter Details Date Type Department Care Team ([facility] st Contact Info) Description 07/27/2024 Refill [facility] [address] [place], [place] [phone] Name, MD Rolf [address] [place] [address] Osteoarthritis of knee, unspecified laterality, unspecified osteoarthritis type; COPD exacerbation (CMS/HCC) Social History Tobacco Use [...] Info) Description 10/27/2024 1:30 PM EDT Telemedicine [facility] MEDICINE [address] [place] [address] Karla Lewis RN 12/05/2024 10:45 AM EDT Office Visit [facility] [address] [place] [address] Name, MD Rolf [address] [place] [address] documented as of this encounter Goals Goal Patient Goal Type Associated Problems Recent Progress Patient-Stated? Author Hemoglobin A1c < 7 Result Component 6.6( 11:14 AM EST) No PuLance camarilloyssa, PharmD Record your blood sugar as directed Result Component No Puia, Martine, PharmD documented as of this encounter Visit Diagnoses Diagnosis Osteoarthritis of knee, unspecified laterality, unspecified osteoarthritis type COPD exacerbation ([facility]/HCC) Obstructive chronic bronchitis with exacerbation documented in this encounter Additional Health Concerns Assessment Noted Time PHQ-9 Depression Total Score: 0 12/06/19 24 10:09 AM EDT documented as of this encounter Care Teams Auto Body Service Mechanic Relationship Specialty Start Date End Date Name, MD Rolf [address] [place] [address] PCP - General Family Medicine 10/21/17 Martine Broussard PharmD [address] [place] [address] Pharmacist Internal Medicine 04/20/23 documented as of this encounter
--- OUTSIDE RECORDS SUMMARY | 2024-08-24 11:14 | XMS_ITS | Encounter Summary ---
Author Organization [employer] Address 75 [facility] 7 [place] [address] Care Team Providers Care Street Cleaner Name Role Phone Name, Rolf PARKS Primary Care Provider [phone] Martine Broussard PharmD Unavailable [phone] Reason for Visit * Reason Comments Med Refill Encounter Details Date Type Department Care Team ([facility] st Contact Info) Description 03/02/2024 Refill [facility] MEDICINE [address] [place], [place] [phone] Vivian Barajas, ANP [address] [place] [address] Diabetes mellitus type 2 with neurological manifestations [...] Description 10/27/2024 1:30 PM EDT Telemedicine [facility] MEDICINE [address] [place] [address] Karla Lewis RN 12/05/2024 10:45 AM EDT Office Visit [facility] MED[facility] [address] [place] [address] Name, MD Rolf [address] [place] [address] documented as of this encounter Goals Goal [...] documented as of this encounter Care Teams Street Cleaner Relationship Specialty Start Date End Date Name, MD Rolf [address] [place] [address] PCP - General Family Medicine 10/21/17 Martine Broussard PharmD [address] [place] [address] Pharmacist Internal Medicine 04/20/23 documented as of this encounter
--- OUTSIDE RECORDS SUMMARY | 2024-08-24 11:14 | XMS_ITS | Encounter Summary ---
Author Organization [employer] Address 75 [facility] 7t [place] [address] Care Team Providers Care Quality Lab Technician Name Role Phone Name, Rolf PARKS Primary Care Provider [phone] Puia, Martine PharmD Unavailable [phone] Puia, Martine PharmD Unavailable Reason for Visit * Reason Comments Med Refill Encounter Details Date Type Department Care Team (Late st Contact Info) Description 06/28/2023 Refill [facility] MED[facility]INE [address] [place], [place] [phone] Name, MD Rolf 230 [place], [place] [phone] Osteoarthritis of knee, unspecified laterality, unspecified osteoarthritis [...] Info) Description 10/27/2024 1:30 PM EDT Telemedicine [address] [address] Karla Lewis RN 12/05/2024 10:45 AM EDT Office Visit [facility] MEDICINE [address] [place] [address] Name, MD Rolf [address] [place] [address] documented as of this encounter Goals Goal [...] documented as of this encounter Care Teams Quality Lab Technician Relationship Specialty Start Date End Date NameRolf MD [address] [place] [address] PCP - General Family Medicine 10/21/17 Puia, Martine, PharmD 230 [place] [address] Pharmacist Internal Medicine 04/20/23 Martine Broussard, GarrettD 230 [place] [address] Pharmacist Internal Medicine 04/20/23 08/11/23 documented as of this encounter
--- OUTSIDE RECORDS SUMMARY | 2024-08-24 11:14 | XMS_ITS | Encounter Summary ---
Author Organization [employer] Address [address] [place] [address] 7 [place] [address] Care Team Providers Care Bottle Filler Name Role Phone Name, Rolf PARKS Primary Care Provider [phone] Martine Broussard PharmD Unavailable [phone] Reason for Visit * Reason Comments Med Refill Encounter Details Date Type Department Care Team ([facility] st Contact Info) Description 02/10/2024 Refill [facility] MEDICINE 230 [place], [place] [phone] Name, MD Rolf [address] [place] [address] COPD exacerbation (CMS/HCC) Social History Tobacco Use [...] Info) Description 10/27/2024 1:30 PM EDT Telemedicine [facility] MEDICINE [address] [place] [address] Karla Lewis RN 12/05/2024 10:45 AM EDT Office Visit [facility] MED[facility]INE [address] [place] [address] Name, MD Rolf [address] [place] [address] documented as of this encounter Goals Goal Patient Goal Type Associated Problems Recent Progress Patient-Stated? Author Hemoglobin A1c < 7 Result Component 6.6( 11:14 AM EST) No Puia, Martine, PharmD Record your blood sugar as directed Result Component No Puia, Martine, PharmD documented as of this encounter Visit Diagnoses Diagnosis COPD exacerbation ([facility]) Obstructive chronic bronchitis with exacerbation documented in this encounter Additional Health Concerns Assessment Noted Time PHQ-9 Depression Total Score: 0 12/06/19 10:09 AM EDT documented as of this encounter Care Teams Bottle Filler Relationship Specialty Start Date End Date Name, MD Rolf [address] [place] [address] PCP - General Family Medicine 10/21/17 Martine Broussard PharmD [address] [place] [address] Pharmacist Internal Medicine 04/20/23 documented as of this encounter
--- OUTSIDE RECORDS SUMMARY | 2024-08-24 11:14 | XMS_ITS | Encounter Summary ---
Author Organization [employer] Address [address] [place] [address] 7t [place] [address] Care Team Providers Care Accounting Administrative Assistant Name Role Phone Name, Rolf PARKS Primary Care Provider [phone] Martine Broussard PharmD Unavailable [phone] Reason for Visit * Reason Comments Med Refill Encounter Details Date Type Department Care Team ([facility] st Contact Info) Description 02/28/2024 Refill [facility] MEDICINE 230 [place], [place] [phone] Name, MD Rolf [address] [place] [address] COPD exacerbation (CMS/HCC); Anxiety; Osteoarthritis of knee, [...] Info) Description 10/27/2024 1:30 PM EDT Telemedicine [facility] MEDICINE [address] [place] [address] Karla Lewis RN 12/05/2024 10:45 AM EDT Office Visit [facility] MEDICINE [address] [place] [address] Name, MD Rolf [address] [place] [address] documented as of this encounter Goals Goal Patient Goal Type Associated Problems Recent Progress Patient-Stated? Author Hemoglobin A1c < 7 Result Component 6.6( 11:14 AM EST) No Martine Broussard, PharmD Record your blood sugar as directed Result Component No Martine Broussard, PharmD documented as of this encounter Visit Diagnoses Diagnosis COPD exacerbation ([facility]) Obstructive chronic bronchitis with exacerbation Anxiety Anxiety state, unspecified Osteoarthritis of knee, unspecified laterality, unspecified osteoarthritis type Chronic pain of left knee documented in this encounter Additional Health Concerns Assessment Noted Time PHQ-9 Depression Total Score: 0 12/06/19 24 10:09 AM EDT documented as of this encounter Care Teams Accounting Administrative Assistant Relationship Specialty Start Date End Date Name, MD Rolf [address] [place] [address] PCP - General Family Medicine 10/21/17 Martine Broussard PharmD [address] [place] [address] Pharmacist Internal Medicine 04/20/23 documented as of this encounter
--- OUTSIDE RECORDS SUMMARY | 2024-08-24 11:14 | XMS_ITS | Encounter Summary ---
Author Organization [employer] Address 75 [facility] 7t [place] [address] Care Team Providers Care Grants Analyst Name Role Phone Name, Rolf PARKS Primary Care Provider [phone] Martine Broussard PharmD Unavailable [phone] Reason for Visit * Reason Comments Med Refill Encounter Details Date Type Department Care Team (Late st Contact Info) Description 02/18/2024 Refill [facility] MEDICINE 230 [place], [place] [phone] Name, MD Rolf 230 [place] [address] Chronic pain of left knee; COPD exacerbation [...] Info) Description 10/27/2024 1:30 PM EDT Telemedicine [facility] MEDICINE [address] [place] [address] Karla Lewis RN 12/05/2024 10:45 AM EDT Office Visit [facility] MEDICINE [address] [place] [address] Name, MD Rolf [address] [place] [address] documented as of this encounter Goals Goal [...] documented as of this encounter Care Teams Grants Analyst Relationship Specialty Start Date End Date Name, MD Rolf [address] [place] [address] PCP - General Family Medicine 10/21/17 Martine Broussard PharmD [address] [place] [address] Pharmacist Internal Medicine 04/20/23 documented as of this encounter
--- OUTSIDE RECORDS SUMMARY | 2024-08-24 11:14 | XMS_ITS | Encounter Summary ---
Author Organization [employer] Address [address] [place] [address] 7 [place] [address] Care Team Providers Care Milk Delivery Driver Name Role Phone Name, Rolf PARKS Primary Care Provider [phone] Martine Broussard PharmD Unavailable [phone] Reason for Visit * Reason Comments Med Refill Encounter Details Date Type Department Care Team ([facility] st Contact Info) Description 02/16/2024 Refill [facility] MEDICINE 230 [place], [place] [phone] Name, MD Rolf [address] [place] [address] COPD exacerbation (CMS/HCC); Anxiety Social History Tobacco [...] Info) Description 10/27/2024 1:30 PM EDT Telemedicine [facility] MEDICINE [address] [place] [address] Karla Lewis RN 12/05/2024 10:45 AM EDT Office Visit [facility] MEDICINE [address] [place] [address] Name, MD Rolf [address] [place] [address] documented as of this encounter Goals Goal Patient Goal Type Associated Problems Recent Progress Patient-Stated? Author Hemoglobin A1c < 7 Result Component 6.6( 11:14 AM EST) No Puia, Martine, PharmD Record your blood sugar as directed Result Component No Puia, Martine, PharmD documented as of this encounter Visit Diagnoses Diagnosis COPD exacerbation ([facility]) Obstructive chronic bronchitis with exacerbation Anxiety Anxiety state, unspecified documented in this encounter Additional Health Concerns Assessment Noted Time PHQ-9 Depression Total Score: 0 12/06/19 10:09 AM EDT documented as of this encounter Care Teams Milk Delivery Driver Relationship Specialty Start Date End Date Name, MD Rolf [address] [place] [address] PCP - General Family Medicine 10/21/17 Martine Broussard PharmD [address] [place] [address] Pharmacist Internal Medicine 04/20/23 documented as of this encounter
--- OUTSIDE RECORDS SUMMARY | 2024-08-24 11:14 | XMS_ITS | Encounter Summary ---
Author Organization [employer] Address [address] [place] [address] 7 [place] [address] Care Team Providers Care Railroad Auditor Name Role Phone Name, Rolf PARKS Primary Care Provider [phone] Martine Broussard PharmD Unavailable [phone] Reason for Visit * Reason Onset Date Comments Med Refill 04/03/2024 Encounter Details Date Type Department Care Team (Late st Contact Info) Description 04/03/2024 Telephone [facility] MEDICINE 230 [place], [place] [phone] Name, MD Rolf 230 [place] [address] Med Refill Social History Tobacco Use Types [...] 10:43 AM EST Medication was sent to [facility] #[id number] on 03/06/24 #30 with 3 refills. * Telephone Encounter - Meli Henao - 04/03/2024 10:42 AM EST TC from pt requesting medication refill. Medications needing refill : traZODone (Desyrel) 50 MG tablet To be sent to: [id number] - [place] [address] [address] [facility] documented in this encounter Plan of Treatment Upcoming Encounters Date Type Department Care Team (Late st Contact Info) Description 10/27/2024 1:30 PM EDT Telemedicine [facility] MEDICINE [address] [place] [address] Karla Lewis RN 12/05/2024 10:45 AM EDT Office Visit [facility] MEDICINE [address] [place] [address] NameRolf MD [address] [place] [address] documented as of this encounter Goals Goal [...] documented as of this encounter Care Teams Railroad Auditor Relationship Specialty Start Date End Date NameRolf MD [address] [place] [address] PCP - General Family Medicine 10/21/17 Martine Broussard, PharmD [address] [place] [address] Pharmacist Internal Medicine 04/20/23 documented as of this encounter
--- OUTSIDE RECORDS SUMMARY | 2024-08-24 11:14 | XMS_ITS | Encounter Summary ---
Author Organization [employer] Address 75 [facility] 7 [place] [address] Care Team Providers Care Flask Carrier Name Role Phone Name, Rolf PARKS Primary Care Provider [phone] Martine Broussard PharmD Unavailable [phone] Reason for Visit * Reason Comments Med Refill Encounter Details Date Type Department Care Team (Late st Contact Info) Description 04/03/2024 Refill [facility] MEDICINE 230 [place], [place] [phone] Vivian Barajas, ANP [address] [place] [address] Diabetes mellitus type 2 with neurological manifestations [...] Info) Description 10/27/2024 1:30 PM EDT Telemedicine [facility] MEDICINE [address] [place] [address] Karla Lewis RN 12/05/2024 10:45 AM EDT Office Visit [facility] MEDICINE [address] [place] [address] Name, MD Rolf [address] [place] [address] documented as of this encounter Goals Goal [...] documented as of this encounter Care Teams Flask Carrier Relationship Specialty Start Date End Date Name, MD Rolf [address] [place] [address] PCP - General Family Medicine 10/21/17 Maritne Broussard PharmD [address] [place] [address] Pharmacist Internal Medicine 04/20/23 documented as of this encounter
--- OUTSIDE RECORDS SUMMARY | 2024-08-24 11:14 | XMS_ITS | Encounter Summary ---
Author Organization [employer] Address [address] [place] [address] 7 [place] [address] Care Team Providers Care Manufacturing Planner Name Role Phone Name, Rolf PARKS Primary Care Provider [phone] Martine Broussard PharmD Unavailable [phone] Reason for Visit * Reason Comments Med Refill Encounter Details Date Type Department Care Team ([facility] st Contact Info) Description 03/23/2024 Refill [facility] MEDICINE 230 [place], [place] [phone] Name, MD Rolf [address] [place] [address] Anxiety Social History Tobacco Use Types Packs/Day [...] Info) Description 10/27/2024 1:30 PM EDT Telemedicine [facility] MEDICINE [address] [place] [address] Karla Lewis RN 12/05/2024 10:45 AM EDT Office Visit [facility] MEDICINE [address] [place] [address] Name, MD Rolf [address] [place] [address] documented as of this encounter Goals Goal [...] documented as of this encounter Care Teams Manufacturing Planner Relationship Specialty Start Date End Date Name, MD Rolf [address] [place] [address] PCP - General Family Medicine 10/21/17 Martine Broussard, GarrettD [address] [place] [address] Pharmacist Internal Medicine 04/20/23 documented as of this encounter
--- OUTSIDE RECORDS SUMMARY | 2024-08-24 11:14 | XMS_ITS | Encounter Summary ---
Author Organization [employer] Address 75 [facility] 7 [place] [address] Care Team Providers Care Manager Intranet Name Role Phone Name, Rolf PARKS Primary Care Provider [phone] Martine Broussard PharmD Unavailable [phone] Reason for Visit * Reason Comments Med Refill Encounter Details Date Type Department Care Team ([facility] st Contact Info) Description 02/18/2024 Refill [facility] MEDICINE 230 [place], [place] [phone] Vivian Barajas, ANP 230 [place] [address] Diabetes mellitus type 2 with neurological manifestations [...] Description 10/27/2024 1:30 PM EDT Telemedicine [facility] MEDICINE [address] [place] [address] Karla Lewis RN 12/05/2024 10:45 AM EDT Office Visit [facility] MEDICINE [address] [place] [address] Name, MD Rolf [address] [place] [address] documented as of this encounter Goals Goal [...] as of this encounter Care Teams Manager Intranet Relationship Specialty Start Date End Date Name, MD Rolf [address] [place] [address] PCP - General Family Medicine 10/21/17 Martine Broussard PharmD [address] [place] [address] Pharmacist Internal Medicine 04/20/23 documented as of this encounter
--- OUTSIDE RECORDS SUMMARY | 2024-08-24 11:14 | XMS_ITS | Encounter Summary ---
Author Organization [employer] Address [address] [facility] 7 [place] [address] Care Team Providers Care Bank Worker Name Role Phone Name, Rolf PARKS Primary Care Provider [phone] Martine Broussard PharmD Unavailable [phone] Reason for Visit * Reason Comments Med Refill Encounter Details Date Type Department Care Team ([facility] st Contact Info) Description 03/23/2024 Refill [facility] MEDICINE 230 [place], [place] [phone] Vivian Barajas, ANP 230 [place] [address] Diabetes mellitus type 2 with neurological manifestations [...] Info) Description 10/27/2024 1:30 PM EDT Telemedicine [facility] MEDICINE [address] [place] [address] Karla Lewis RN 12/05/2024 10:45 AM EDT Office Visit [facility] MEDICINE [address] [place] [address] Name, MD Rolf [address] [place] [address] documented as of this encounter Goals Goal [...] documented as of this encounter Care Teams Bank Worker Relationship Specialty Start Date End Date Name, MD Rolf [address] [place] [address] PCP - General Family Medicine 10/21/17 Martine Broussard PharmD [address] [place] [address] Pharmacist Internal Medicine 04/20/23 documented as of this encounter
--- OUTSIDE RECORDS SUMMARY | 2024-08-24 11:14 | XMS_ITS | Encounter Summary ---
Author Organization [employer] Address [address] [place] [address] 7 [place] [address] Care Team Providers Care Materials Buyer Name Role Phone Name, Rolf PARKS Primary Care Provider [phone] Martine Broussard PharmD Unavailable [phone] Reason for Visit * Reason Onset Date Comments fyi 02/22/2024 Durable Medical Equipment 02/22/2024 Encounter Details Date Type Department Care Team (Late st Contact Info) Description 02/22/2024 Telephone [facility] MEDICINE 230 [place], [place] [phone] Name, MD Rolf [address] [place] [address] fyi; Durable Medical Equipment Social History Tobacco [...] surgery 02/28 and needs DME equipment. Annetta (greenlandic) [phone] documented in this encounter Plan of Treatment Upcoming Encounters Date Type Department Care Team (Late st Contact Info) Description 10/27/2024 1:30 PM EDT Telemedicine [facility] MEDICINE [address] [place] [address] Karla Lewis RN 12/05/2024 10:45 AM EDT Office Visit [facility] MEDICINE [address] [place] [address] Name, MD Rolf [address] [place] [address] documented as of this encounter Goals Goal [...] documented as of this encounter Care Teams Materials Buyer Relationship Specialty Start Date End Date Name, MD Rolf [address] [place] [address] PCP - General Family Medicine 10/21/17 Martine Broussard PharmD [address] [place] [address] Pharmacist Internal Medicine 04/20/23 documented as of this encounter
--- OUTSIDE RECORDS SUMMARY | 2024-08-24 11:14 | XMS_ITS | Encounter Summary ---
Author Organization [employer] Address 75 [facility] 7 [place] [address] Care Team Providers Care Returned Materials Inspector Name Role Phone Name, Rolf PARKS Primary Care Provider [phone] Puia, Martine PharmD Unavailable Puia, Martine PharmD Unavailable Reason for Visit * Reason Onset Date Comments Med Refill 05/04/2023 Encounter Details Date Type Department Care Team (Late st Contact Info) Description 05/04/2023 Telephone [facility] MEDICINE 230 [place], [place] [phone] Name, MD Rolf 230 [place], [place] [phone] Med Refill Social History Tobacco Use Types [...] 3:59 PM EST Gabapentin was sent to [facility] on 04/21/23 and [id number] with 2 refills. * Telephone Encounter - Familia Doyle - 05/04/2023 3:46 PM EST TC from pt's daughter requesting medication refill. Medications needing refill : escitalopram (Lexapro) 10 MG tablet and gabapentin (Neurontin) 300 MG capsule documented in this encounter Plan of Treatment Upcoming Encounters Date Type Department Care Team (Late st Contact Info) Description 10/27/2024 1:30 PM EDT Telemedicine [facility] MEDICINE [address] [place] [address] Karla Lewis RN 12/05/2024 10:45 AM EDT Office Visit [facility] MEDICINE [address] [place] [address] Name, MD Rolf [address] [place] [address] documented as of this encounter Goals Goal [...] documented as of this encounter Care Teams Returned Materials Inspector Relationship Specialty Start Date End Date Name, MD Rolf [address] [place] [address] PCP - General Family Medicine 10/21/17 Martine Broussard PharmD [address] [place] [address] Pharmacist Internal Medicine 04/20/23 Martine Broussard PharmD [address] [place] [address] Pharmacist Internal Medicine 04/20/23 08/11/23 documented as of this encounter
--- OUTSIDE RECORDS SUMMARY | 2024-08-24 11:14 | XMS_ITS | Encounter Summary ---
Author Organization [employer] Address [address] [place] [address] 7 [place] [address] Care Team Providers Care Crepe Box Tender Name Role Phone Name, Rolf PARKS Primary Care Provider [phone] Martine Broussard PharmD Unavailable [phone] Reason for Visit * Reason Comments Med Refill Encounter Details Date Type Department Care Team (Late st Contact Info) Description 03/08/2024 Refill [facility] 230 [place], [place] [phone] Name, MD Rolf 230 [place] [address] Osteoarthritis of knee, unspecified laterality, unspecified osteoarthritis [...] Info) Description 10/27/2024 1:30 PM EDT Telemedicine [facility]INE [address] [place] [address] Karla Lewis RN 12/05/2024 10:45 AM EDT Office Visit [facility] [address] [place] [address] Name, MD Rolf [address] [place] [address] documented as of this encounter Goals Goal Patient Goal Type Associated Problems Recent Progress Patient-Stated? Author Hemoglobin A1c < 7 Result Component 6.6( 11:14 AM EST) No PuiaMartine, PharmD Record your blood sugar as directed Result Component No Pumarquise Martine, PharmD documented as of this encounter Visit Diagnoses Diagnosis Osteoarthritis of knee, unspecified laterality, unspecified osteoarthritis type documented in this encounter Additional Health Concerns Assessment Noted Time PHQ-9 Depression Total Score: 0 12/06/19 10:09 AM EDT documented as of this encounter Care Teams Crepe Box Tender Relationship Specialty Start Date End Date Name, MD Rolf 230 [place] [address] PCP - General Family Medicine 10/21/17 Martine Broussard PharmD 230 [place] [address] Pharmacist Internal Medicine 04/20/23 documented as of this encounter
--- OUTSIDE RECORDS SUMMARY | 2024-08-24 11:14 | XMS_ITS | Encounter Summary ---
Author Organization [employer] Address [address] [place] [address] 7t [place] [address] Care Team Providers Care Buckle And Button Maker Name Role Phone Name, Rolf PARKS Primary Care Provider [phone] Martine Broussard PharmD Unavailable [phone] Reason for Visit * Reason Comments Med Refill Encounter Details Date Type Department Care Team (Late st Contact Info) Description 08/21/2024 Refill [facility] MEDICINE 230 [place], [place] [phone] Stefanie Mcneal MD 230 [place], [place] [phone] S/P TKR (total knee replacement), left Social [...] encounter Miscellaneous Notes * Telephone Encounter - Maggie Tate RN - 08/22/2024 3:16 PM EDT TELEPHONE MAINTAINER checked. patient last sisal picker 07/28 patient due 08/25. Patient is due for medication, medication queued. documented in this encounter Plan of Treatment Upcoming Encounters Date Type Department Care Team (Late st Contact Info) Description 10/27/2024 1:30 PM EDT Telemedicine [facility] MEDICINE [address] [place] [address] Karla Lewis RN 12/05/2024 10:45 AM EDT Office Visit [facility] [address] [place] [address] Name, MD Rolf [address] [place] [address] documented as of this encounter Goals Goal [...] documented as of this encounter Care Teams Buckle And Button Maker Relationship Specialty Start Date End Date Name, MD Rolf 230 [place] [address] PCP - General Family Medicine 10/21/17 Martine Broussard PharmD 230 [place] [address] Pharmacist Internal Medicine 04/20/23 documented as of this encounter
--- OUTSIDE RECORDS SUMMARY | 2024-08-24 11:14 | XMS_ITS | Encounter Summary ---
Author Organization [employer] Address [address] [place] [address] 7t [place] [address] Care Team Providers Care Cable Tv Installer Name Role Phone Name, Rolf PARKS Primary Care Provider [phone] Martine Broussard PharmD Unavailable [phone] Reason for Visit * Reason Comments Med Refill Encounter Details Date Type Department Care Team ([facility] st Contact Info) Description 03/01/2024 Refill [facility] MEDICINE 230 [place], [place] [phone] Name, MD Rolf 230 [place] [address] Anxiety; COPD exacerbation (CMS/HCC); Osteoarthritis of knee, [...] Info) Description 10/27/2024 1:30 PM EDT Telemedicine [facility] MEDICINE [address] [place] [address] Karla Lewis RN 12/05/2024 10:45 AM EDT Office Visit [facility]INE [address] [place] [address] 624[address] Name, MD Rolf [address] [place] [address] documented as of this encounter Goals Goal Patient Goal Type Associated Problems Recent Progress Patient-Stated? Author Hemoglobin A1c < 7 Result Component 6.6( 11:14 AM EST) No Martine Broussard, PharmD Record your blood sugar as directed Result Component No Martine Broussard, PharmD documented as of this encounter Visit Diagnoses Diagnosis Anxiety Anxiety state, unspecified COPD exacerbation ([facility]/HCC) Obstructive chronic bronchitis with exacerbation Osteoarthritis of knee, unspecified laterality, unspecified osteoarthritis type Chronic pain of left knee documented in this encounter Additional Health Concerns Assessment Noted Time PHQ-9 Depression Total Score: 0 12/06/19 24 10:09 AM EDT documented as of this encounter Care Teams Cable Tv Installer Relationship Specialty Start Date End Date Name, MD Rolf 230 [place] [address] PCP - General Family Medicine 10/21/17 Martine Broussard PharmD 230 [place] [address] Pharmacist Internal Medicine 04/20/23 documented as of this encounter
--- OUTSIDE RECORDS SUMMARY | 2024-08-24 11:14 | XMS_ITS | Encounter Summary ---
Author Organization [employer] Address [address] [facility] 7t [place] [address] Care Team Providers Care Breading Machine Tender Name Role Phone Name, Rolf PARKS Primary Care Provider [phone] Martine Broussard PharmD Unavailable [phone] Reason for Visit * Reason Comments Med Refill Encounter Details Date Type Department Care Team ([facility] st Contact Info) Description 02/22/2024 Refill [facility] MED[facility]INE 230 [place], [place] [phone] Name, MD Rolf 230 [place] [address] Chronic pain of left knee; COPD exacerbation [...] Info) Description 10/27/2024 1:30 PM EDT Telemedicine [facility]INE [address] [place] [address] Karla Lewis RN 12/05/2024 10:45 AM EDT Office Visit [facility] [address] [place] [address] Name, MD Rolf [address] [place] [address] documented as of this encounter Goals Goal [...] documented as of this encounter Care Teams Breading Machine Tender Relationship Specialty Start Date End Date Name, MD Rolf 230 [place] [address] PCP - General Family Medicine 10/21/17 Martine Broussard PharmD 230 [place] [address] Pharmacist Internal Medicine 04/20/23 documented as of this encounter
--- OUTSIDE RECORDS SUMMARY | 2024-08-24 11:14 | XMS_ITS | Encounter Summary ---
Author Organization [employer] Address [address] [facility] 7 [place] [address] Care Team Providers Care Balance Truing Inspector Name Role Phone Name, Rolf PARKS Primary Care Provider [phone] Martine Broussard PharmD Unavailable [phone] Reason for Visit * Reason Comments Med Refill Encounter Details Date Type Department Care Team ([facility] st Contact Info) Description 02/18/2024 Refill [facility] MEDICINE 230 [place], [place] [phone] Vivian Barajas, ANP 230 [place] [address] Diabetes mellitus type 2 with neurological manifestations [...] Description 10/27/2024 1:30 PM EDT Telemedicine [facility] MEDICINE [address] [place] [address] Karla Lewis RN 12/05/2024 10:45 AM EDT Office Visit [facility] MED[facility]INE [address] [place] [address] Name, MD Rolf [address] [place] [address] documented as of this encounter Goals Goal [...] documented as of this encounter Care Teams Balance Truing Inspector Relationship Specialty Start Date End Date Name, MD Rolf 230 [place] [address] PCP - General Family Medicine 10/21/17 Martine Broussard PharmD 230 [place] [address] Pharmacist Internal Medicine 04/20/23 documented as of this encounter
--- OUTSIDE RECORDS SUMMARY | 2024-08-24 11:14 | XMS_ITS | Encounter Summary ---
Author Organization [employer] Address [address] [place] [address] 7 [place] [address] Care Team Providers Care Forest Botany Instructor Name Role Phone Name, Rolf PARKS Primary Care Provider [phone] Martine Broussard PharmD Unavailable Reason for Visit * Reason Onset Date Comments Med Refill 07/27/2024 Encounter Details Date Type Department Care Team (Late st Contact Info) Description 07/27/2024 Telephone [facility] MEDICINE 230 [place], [place] [phone] Name, MD Rolf 230 [place], [place] [phone] Med Refill Social History Tobacco Use Types [...] * Telephone Encounter - Funmi Benjamin - 07/27/2024 9:43 AM EDT TC from pt requesting medication refill. Medications needing refill : oxyCODONE-acetaminophen (Percocet) 5-325 MG tablet To be sent to: [facility] [id number] [place] [address] [facility] documented in this encounter Plan of Treatment Upcoming Encounters Date Type Department Care Team (Late st Contact Info) Description 10/27/2024 1:30 PM EDT Telemedicine [facility] MEDICINE [address] [place] [address] 1965[address] Karla Lewis RN 12/05/2024 10:45 AM EDT Office Visit [facility] [address] [place] [address] [phone] Name, MD Rolf 230 [place] [address] documented as of this encounter Goals Goal [...] documented as of this encounter Care Teams Forest Botany Instructor Relationship Specialty Start Date End Date Name, MD Rolf [address] [place] [address] PCP - General Family Medicine 10/21/17 Martine Broussard PharmD [address] [place] [address] Pharmacist Internal Medicine 04/20/23 documented as of this encounter
--- OUTSIDE RECORDS SUMMARY | 2024-08-24 11:14 | XMS_ITS | Encounter Summary ---
Author Organization [employer] Address [address] [place] [address] 7 [place] [address] Care Team Providers Care Automation/Controls Manager Name Role Phone Name, Rolf PARKS Primary Care Provider [phone] Martine Broussard PharmD Unavailable [phone] Reason for Visit * Reason Comments Med Refill Encounter Details Date Type Department Care Team ([facility] st Contact Info) Description 08/23/2024 Refill [facility]INE 230 [place], [place] [phone] Name, MD Rolf 230 [place] [address] Osteoarthritis of knee, unspecified laterality, unspecified osteoarthritis [...] Info) Description 10/27/2024 1:30 PM EDT Telemedicine [facility] MED[facility]INE [address] [place] [address] Karla Lewis RN 12/05/2024 10:45 AM EDT Office Visit [facility] [address] [place] [address] Name, MD Rolf [address] [place] [address] documented as of this encounter Goals Goal [...] documented as of this encounter Care Teams Automation/Controls Manager Relationship Specialty Start Date End Date Name, MD Rolf 230 [place] [address] PCP - General Family Medicine 10/21/17 Martine Broussard PharmD 230 [place] [address] Pharmacist Internal Medicine 04/20/23 documented as of this encounter
--- OUTSIDE RECORDS SUMMARY | 2024-08-24 11:14 | XMS_ITS | Encounter Summary ---
Author Organization [employer] Address 75 [facility] 7 [place] [address] Care Team Providers Care Elevating Grader Operator Name Role Phone Name, Rolf PARKS Primary Care Provider [phone] Martine Broussard PharmD Unavailable [phone] Reason for Visit * Reason Comments Med Refill Encounter Details Date Type Department Care Team ([facility] st Contact Info) Description 03/29/2024 Refill [facility] 230 [place], [place] [phone] Vivian Barajas, ANP 230 [place] [address] Diabetes mellitus type 2 with neurological manifestations [...] Info) Description 10/27/2024 1:30 PM EDT Telemedicine [facility]INE [address] [place] [address] Karla Lewis RN 12/05/2024 10:45 AM EDT Office Visit [facility] [address] [place] [address] Name, MD Rolf [address] [place] [address] documented as of this encounter Goals Goal [...] documented as of this encounter Care Teams Elevating Grader Operator Relationship Specialty Start Date End Date Name, MD Rolf 230 [place] [address] PCP - General Family Medicine 10/21/17 Martine Broussard PharmD 230 [place] [address] Pharmacist Internal Medicine 04/20/23 documented as of this encounter
--- OUTSIDE RECORDS SUMMARY | 2024-08-24 11:14 | XMS_ITS | Encounter Summary ---
Author Organization [employer] Address [address] [place] [address] 7t [place] [address] Care Team Providers Care Project Account Manager Name Role Phone Name, Rolf PARKS Primary Care Provider [phone] Martine Broussard PharmD Unavailable [phone] Reason for Visit * Reason Comments Med Refill Encounter Details Date Type Department Care Team (Late st Contact Info) Description 08/16/2024 Refill [facility] MEDICINE 230 [place], [place] [phone] Stefanie Mcneal MD 230 [place], [place] [phone] S/P TKR (total knee replacement), left Social [...] Info) Description 10/27/2024 1:30 PM EDT Telemedicine [facility] MEDICINE [address] [place] [address] Karla Lewis RN 12/05/2024 10:45 AM EDT Office Visit [facility] MEDICINE [address] [place] [address] Name, MD Rolf [address] [place] [address] documented as of this encounter Goals Goal [...] documented as of this encounter Care Teams Project Account Manager Relationship Specialty Start Date End Date Name, MD Rolf 230 [place] [address] PCP - General Family Medicine 10/21/17 Martine Broussard, Paulo 230 [place] [address] Pharmacist Internal Medicine 04/20/23 documented as of this encounter
--- OUTSIDE RECORDS SUMMARY | 2024-08-24 11:14 | XMS_ITS | Encounter Summary ---
Author Organization [employer] Address 75 [facility] 7 [place] [address] Care Team Providers Care Administrative Fellow Name Role Phone Name, Rolf PARKS Primary Care Provider [phone] Puia, Martine PharmD Unavailable [phone] Puia, Martine PharmD Unavailable Reason for Visit * Reason Onset Date Comments Med Refill 05/07/2023 Encounter Details Date Type Department Care Team (Late st Contact Info) Description 05/07/2023 Telephone [facility] MEDICINE 230 [place] [address] Name, MD Rolf 230 [place], [place] [phone] Med Refill Social History Tobacco Use Types [...] 3:52 PM EST Medication was sent to [facility] on 04/21/23. * Telephone Encounter - Familia Doyle - 05/07/2023 3:49 PM EST TC from pt requesting medication refill. Medications needing refill : gabapentin (Neurontin) 300 MG capsule To be sent to: [facility] documented in this encounter Plan of Treatment Upcoming Encounters Date Type Department Care Team (Late st Contact Info) Description 10/27/2024 1:30 PM EDT Telemedicine [facility] MEDICINE [address] [place] [address] Karla Lewis RN 12/05/2024 10:45 AM EDT Office Visit [facility] MED[facility]INE [address] [place] [address] Name, MD Rolf [address] [place] [address] documented as of this encounter Goals Goal [...] documented as of this encounter Care Teams Administrative Fellow Relationship Specialty Start Date End Date Name, MD Rolf 230 [place] [address] PCP - General Family Medicine 10/21/17 Martine Broussard, PharmD 230 [place] [address] Pharmacist Internal Medicine 04/20/23 Martine Broussard PharmD [address] [place] [address] Pharmacist Internal Medicine 04/20/23 08/11/23 documented as of this encounter
--- OUTSIDE RECORDS SUMMARY | 2024-08-24 11:14 | XMS_ITS | Encounter Summary ---
Author Organization [employer] Address [address] [place] [address] 7 [place] [address] Care Team Providers Care Growth Hacker Name Role Phone Name, Rolf PARKS Primary Care Provider [phone] Martine Broussard PharmD Unavailable [phone] Reason for Visit * Reason Comments Med Refill Encounter Details Date Type Department Care Team ([facility] st Contact Info) Description 07/21/2024 Refill [facility] MEDICINE 230 [place], [place] [phone] Name, MD Rolf 230 [place] [address] S/P TKR (total knee replacement), left Social [...] Info) Description 10/27/2024 1:30 PM EDT Telemedicine [facility] MEDICINE [address] [place] [address] Karla Lewis RN 12/05/2024 10:45 AM EDT Office Visit [facility] MEDICINE [address] [place] [address] 94[address] Name, MD Rolf [address] [place] [address] documented as of this encounter Goals Goal [...] documented as of this encounter Care Teams Growth Hacker Relationship Specialty Start Date End Date Name, MD Rolf 230 [place] [address] PCP - General Family Medicine 10/21/17 Martine Broussard PharmD 230 [place] [address] Pharmacist Internal Medicine 04/20/23 documented as of this encounter
--- OUTSIDE RECORDS SUMMARY | 2024-08-24 11:14 | XMS_ITS | Encounter Summary ---
Author Organization [employer] Address [address] [facility] 7t [place] [address] Care Team Providers Care Salvage Supervisor Name Role Phone Name, Rolf PARKS Primary Care Provider [phone] Martine Broussard PharmD Unavailable [phone] Encounter Details Date Type Department Care Team ([facility] st Contact Info) Description 02/22/2024 Telephone [facility] MEDICINE 230 [place], [place] [phone] Name, MD Rolf 230 [place] [address] Social History Tobacco Use Types Packs/Day Years [...] Info) Description 10/27/2024 1:30 PM EDT Telemedicine [facility] MEDICINE [address] [place] [address] Karla Lewis RN 12/05/2024 10:45 AM EDT Office Visit [facility] MED[facility] [address] [place] [address] Rolf Gamble MD [address] [place] [address] documented as of this encounter Goals Goal [...] documented as of this encounter Care Teams Salvage Supervisor Relationship Specialty Start Date End Date Rolf Gamble MD 230 [place] [address] PCP - General Family Medicine 10/21/17 Martine Broussard PharmD 230 [place] [address] Pharmacist Internal Medicine 04/20/23 documented as of this encounter
--- OUTSIDE RECORDS SUMMARY | 2024-08-24 11:14 | XMS_ITS | Encounter Summary ---
Author Organization [employer] Address [address] [place] [address] 7 [place] [address] Care Team Providers Care It Service Delivery Manager Name Role Phone Name, Rolf PARKS Primary Care Provider [phone] Martine Broussard PharmD Unavailable [phone] Reason for Visit * Reason Comments Med Refill Encounter Details Date Type Department Care Team (Late st Contact Info) Description 03/10/2024 Refill [facility] MEDICINE 230 [place], [place] [phone] Name, MD Rolf 230 [place] [address] Osteoarthritis of knee, unspecified laterality, unspecified osteoarthritis [...] 10/27/2024 1:30 PM EDT Telemedicine [facility] MEDICINE [address] [place] [address] Karla Lewis RN 12/05/2024 10:45 AM EDT Office Visit [facility] MEDICINE [address] [place] [address] Name, MD Rolf [address] [place] [address] documented as of this encounter Goals Goal [...] documented as of this encounter Care Teams It Service Delivery Manager Relationship Specialty Start Date End Date Name, MD Rolf 230 [place] [address] PCP - General Family Medicine 10/21/17 Martine Broussard PharmD 230 [place] [address] Pharmacist Internal Medicine 04/20/23 documented as of this encounter
--- OUTSIDE RECORDS SUMMARY | 2024-08-24 11:14 | XMS_ITS | Encounter Summary ---
Author Organization [employer] Address 75 [facility] 7 [place] [address] Care Team Providers Care Wire Drawing Die Maker Name Role Phone Name, Rolf PARKS Primary Care Provider [phone] Martine Broussard PharmD Unavailable [phone] Reason for Visit * Reason Comments Med Refill Encounter Details Date Type Department Care Team (Late st Contact Info) Description 03/08/2024 Refill [facility] MEDICINE 230 [place], [place] [phone] Vivian Barajas, ANP 230 [place] [address] Diabetes mellitus type 2 with neurological manifestations [...] Description 10/27/2024 1:30 PM EDT Telemedicine [facility] MEDICINE [address] [place] [address] Karla Lewis RN 12/05/2024 10:45 AM EDT Office Visit [facility] MEDICINE [address] [place] [address] Name, MD Rolf [address] [place] [address] documented as of this encounter Goals Goal [...] documented as of this encounter Care Teams Wire Drawing Die Maker Relationship Specialty Start Date End Date Name, MD Rolf 230 [place] [address] PCP - General Family Medicine 10/21/17 Martine Broussard PharmD 230 [place] [address] Pharmacist Internal Medicine 04/20/23 documented as of this encounter
--- OUTSIDE RECORDS SUMMARY | 2024-08-24 11:14 | XMS_ITS | Encounter Summary ---
Author Organization [employer] Address [address] [place] [address] 7 [place] [address] Care Team Providers Care Water Resources Technical Officer Name Role Phone Name, Rolf PARKS Primary Care Provider [phone] Martine Broussard PharmD Unavailable [phone] Reason for Visit * Reason Comments Med Refill Encounter Details Date Type Department Care Team ([facility] st Contact Info) Description 02/11/2024 Refill [facility] MEDICINE 230 [place], [place] [phone] Name, MD Rolf 230 [place] [address] Anxiety; Chronic pain of left knee; Osteoarthritis [...] Description 10/27/2024 1:30 PM EDT Telemedicine [facility] MEDICINE [address] [place] [address] Karla Lewis RN 12/05/2024 10:45 AM EDT Office Visit [facility] MEDICINE [address] [place] [address] Name, MD Rolf [address] [place] [address] documented as of this encounter Goals Goal [...] documented as of this encounter Care Teams Water Resources Technical Officer Relationship Specialty Start Date End Date Name, MD Rolf 230 [place] [address] PCP - General Family Medicine 10/21/17 Martine Broussard PharmD 230 [place] [address] Pharmacist Internal Medicine 04/20/23 documented as of this encounter
--- OUTSIDE RECORDS SUMMARY | 2024-08-24 11:14 | XMS_ITS | Encounter Summary ---
Author Organization [employer] Address [address] [place] [address] 7 [place] [address] Care Team Providers Care Contract Programmer Name Role Phone Name, Rolf PARKS Primary Care Provider [phone] Martine Broussard PharmD Unavailable [phone] Reason for Visit * Reason Comments Med Refill Encounter Details Date Type Department Care Team ([facility] st Contact Info) Description 02/09/2024 Refill [facility] [address] [place], [place] [phone] Name, MD Rolf 230 [place] [address] COPD exacerbation (CMS/HCC) Social History Tobacco Use [...] Info) Description 10/27/2024 1:30 PM EDT Telemedicine [facility] [address] [place] [address] Karla Lewis RN 12/05/2024 10:45 AM EDT Office Visit [facility] [address] [place] [address] Name, MD Rolf [address] [place] [address] documented as of this encounter Goals Goal Patient Goal Type Associated Problems Recent Progress Patient-Stated? Author Hemoglobin A1c < 7 Result Component 6.6( 11:14 AM EST) No Puia, Martine, PharmD Record your blood sugar as directed Result Component No Puia, Martine, PharmD documented as of this encounter Visit Diagnoses Diagnosis COPD exacerbation ([facility]) Obstructive chronic bronchitis with exacerbation documented in this encounter Additional Health Concerns Assessment Noted Time PHQ-9 Depression Total Score: 0 12/06/19 10:09 AM EDT documented as of this encounter Care Teams Contract Programmer Relationship Specialty Start Date End Date Name, MD Rolf [address] [place] [address] PCP - General Family Medicine 10/21/17 Martine Broussard PharmD 230 [place] [address] Pharmacist Internal Medicine 04/20/23 documented as of this encounter
--- OUTSIDE RECORDS SUMMARY | 2024-08-24 11:14 | XMS_ITS | Encounter Summary ---
Author Organization [employer] Address [address] [facility] 7 [place] [address] Care Team Providers Care Supervisor Typesetting Name Role Phone Name, Rolf PARKS Primary Care Provider [phone] Martine Broussard PharmD Unavailable [phone] Reason for Visit * Reason Comments Med Refill Encounter Details Date Type Department Care Team ([facility] st Contact Info) Description 03/13/2024 Refill [facility] 230 [place], [place] [phone] Vivian Barajas, ANP 230 [place] [address] Diabetes mellitus type 2 with neurological manifestations [...] 10/27/2024 1:30 PM EDT Telemedicine [facility] [address] [place] [address] 396[address] Karla Lewis RN 12/05/2024 10:45 AM EDT Office Visit [facility] [address] [place] [address] 344[address] Name, MD Rolf [address] [place] [address] documented as of this encounter Goals Goal [...] as of this encounter Care Teams Supervisor Typesetting Relationship Specialty Start Date End Date Name, MD Rolf 230 [place] [address] PCP - General Family Medicine 10/21/17 Martine Broussard PharmD 230 [place] [address] Pharmacist Internal Medicine 04/20/23 documented as of this encounter
--- OUTSIDE RECORDS SUMMARY | 2024-08-24 11:15 | XMS_ITS | Encounter Summary ---
Author Organization [employer] Address 75 [facility] 7t [place] [address] Care Team Providers Care Multigrapher Name Role Phone Name, Rolf PARKS Primary Care Provider [phone] Martine Broussard PharmD Unavailable Reason for Visit * Reason Comments Med Refill Encounter Details Date Type Department Care Team ([facility] st Contact Info) Description 11/17/2023 Refill [facility] 230 [place], [place] [phone] Name, MD Rolf 230 [place] [address] Anxiety Social History Tobacco Use Types Packs/Day [...] Info) Description 10/27/2024 1:30 PM EDT Telemedicine [facility] [address] [place] [address] Karla Lewis RN 12/05/2024 10:45 AM EDT Office Visit [facility] [address] [place] [address] Name, MD Rolf [address] [place] [address] documented as of this encounter Goals Goal [...] documented as of this encounter Care Teams Multigrapher Relationship Specialty Start Date End Date NameRolf MD [address] [place] [address] PCP - General Family Medicine 10/21/17 Puia, Martine, PharmD [address] [place] [address] Pharmacist Internal Medicine 12/19/23 documented as of this encounter
--- OUTSIDE RECORDS SUMMARY | 2024-08-24 11:15 | XMS_ITS | Encounter Summary ---
Author Organization [employer] Address 75 [facility] 7 [place] [address] Care Team Providers Care Tight Barrel Inspector Name Role Phone Name, Rolf PARKS Primary Care Provider [phone] Martine Broussard PharmD Unavailable [phone] Reason for Visit * Reason Comments Med Refill Encounter Details Date Type Department Care Team ([facility] st Contact Info) Description 05/23/2024 Refill [facility] 230 [place], [place] [phone] Felicia Law NP 230 [place] [address] Anxiety Social History Tobacco Use Types Packs/Day [...] PM EDT Telemedicine [facility] [address] [place] [address] Karla Lewis RN 12/05/2024 10:45 AM EDT Office Visit [facility] [address] [place] [address] Name, MD Rolf [address] [place] [address] documented as of this encounter Goals Goal [...] documented as of this encounter Care Teams Tight Barrel Inspector Relationship Specialty Start Date End Date Name, MD Rolf [address] [place] [address] PCP - General Family Medicine 10/21/17 Martine Broussard, GarrettD [address] [place] [address] Pharmacist Internal Medicine 04/20/23 documented as of this encounter
--- OUTSIDE RECORDS SUMMARY | 2024-08-24 11:15 | XMS_ITS | Encounter Summary ---
Author Organization [employer] Address 75 [facility] 7t [place] [address] Care Team Providers Care Dance Therapist Name Role Phone Name, Rolf PARKS Primary Care Provider [phone] Martine Broussard PharmD Unavailable [phone] Reason for Visit * Reason Onset Date Comments Med Refill 11/24/2023 Encounter Details Date Type Department Care Team (Late st Contact Info) Description 11/24/2023 Telephone [facility] 230 [place], [place] [phone] Name, MD Rolf 230 [place], [place] [phone] Med Refill Social History Tobacco Use Types [...] 10:44 AM EDT Medication was sent to [facility][id number] on 10/21/23 #30 with 1 refill. * Telephone Encounter - Nela Whalen - 11/24/2023 10:42 AM EDT TC from pt requesting medication refill. Medications needing refill : traZODone (Desyrel) 50 MG tablet To be sent to: [facility][id number] [place] [address] [address] AT [facility] documented in this encounter Plan of Treatment Upcoming Encounters Date Type Department Care Team (Late st Contact Info) Description 10/27/2024 1:30 PM EDT Telemedicine [facility] [address] [place] [address] Karla Lewis RN 12/05/2024 10:45 AM EDT Office Visit [facility] [address] [place] [address] Name, MD Rolf [address] [place] [address] documented as of this encounter Goals Goal [...] documented as of this encounter Care Teams Dance Therapist Relationship Specialty Start Date End Date Name, MD Rolf 230 [place] [address] PCP - General Family Medicine 10/21/17 Martine Broussard PharmD [address] [place] [address] Pharmacist Internal Medicine 04/20/23 documented as of this encounter
--- OUTSIDE RECORDS SUMMARY | 2024-08-24 11:15 | XMS_ITS | Encounter Summary ---
Author Organization [employer] Address 75 [facility] 7t [place] [address] Care Team Providers Care Measurement Coordinator Name Role Phone Name, Rolf PARKS Primary Care Provider [phone] Martine Broussard PharmD Unavailable Reason for Visit * Reason Comments Med Refill Encounter Details Date Type Department Care Team (Late st Contact Info) Description 04/20/2024 Refill [facility]INE 230 [place], [place] [phone] Name, MD Rolf 230 [place] [address] Anxiety; Osteoarthritis of knee, unspecified laterality, unspecified osteoarthritis type; Type 2 diabetes mellitus with hyperglycemia, without long-term current use of insulin ([facility]); Iron deficiency anemia, unspecified iron [...] Description 10/27/2024 1:30 PM EDT Telemedicine [facility] MEDICINE [address] [place] [address] Karla Lewis RN 12/05/2024 10:45 AM EDT Office Visit [facility]INE [address] [place] [address] Name, MD Rolf [address] [place] [address] documented as of this encounter Goals Goal [...] hyperglycemia, without long-term current use of insulin ([facility]) Iron deficiency anemia, unspecified iron deficiency anemia type Abnormal chest x-ray Nonspecific (abnormal) findings on radiological and other examination of lung field Tobacco use documented in this encounter Additional Health Concerns Assessment Noted Time PHQ-9 Depression Total Score: 0 12/06/19 24 10:09 AM EDT documented as of this encounter Care Teams Measurement Coordinator Relationship Specialty Start Date End Date Name, MD Rolf 230 [place] [address] PCP - General Family Medicine 10/21/17 Martine Broussard PharmD 230 [place] [address] Pharmacist Internal Medicine 04/20/23 documented as of this encounter
--- OUTSIDE RECORDS SUMMARY | 2024-08-24 11:15 | XMS_ITS | Clinical Summary ---
Author Organization [employer] Address [address] [place] [address] Care Team Providers Care Pierogi Maker Name Role Phone Poppy Hernandez MD Primary [...] Annual BMP Blood Test 04/16/2022 COVID-19 Vaccine (2023-2 5 season) 2024 Influenza Vaccine (Season Ended) 2025 03/22/20 12 RSV Immunization Adult Patie nts (1 - 1-dose 75+ series) 12/29/2031 HIB [...] age to complete this topic Meningococcal B Vaccine Aged Out No l onger eligible based on patient's age to complete this topic RSV Immunization Patients Un josé antonio 20 months Aged Out No longer eligible b ased on patient's age to complete this topic Varicella Vaccines Aged Out No longer eligible based on patient's age to complete this topic Care Teams Pierogi Maker Relationship Specialty Start Date End Date Poppy Hernandez MD [address] [place] [address] PCP - General Internal Medicine 06/03/17
--- OUTSIDE RECORDS SUMMARY | 2024-08-24 11:15 | XMS_ITS | Encounter Summary ---
Author Organization [employer] Address 75 [facility] 7t [place] [address] Care Team Providers Care Technical Translator Name Role Phone Name, Rolf PARKS Primary Care Provider [phone] Martine Broussard PharmD Unavailable [phone] Reason for Visit * Reason Comments Med Refill Encounter Details Date Type Department Care Team ([facility] st Contact Info) Description 11/08/2023 Refill [facility] 230 [place], [place] [phone] Name, MD Rolf 230 [place] [address] Anxiety; Chronic pain of left knee Social [...] Info) Description 10/27/2024 1:30 PM EDT Telemedicine [facility] [address] [place] [address] Karla Lewis RN 12/05/2024 10:45 AM EDT Office Visit [facility] [address] [place] [address] 49660 Name, MD Rolf [address] [place] [address] documented as of this encounter Goals Goal [...] documented as of this encounter Care Teams Technical Translator Relationship Specialty Start Date End Date NameRolf MD [address] [place] [address] PCP - General Family Medicine 10/21/17 Puia, Martine, PharmD [address] [place] [address] Pharmacist Internal Medicine 04/20/23 documented as of this encounter
--- OUTSIDE RECORDS SUMMARY | 2024-08-24 11:15 | XMS_ITS | Encounter Summary ---
Author Organization [employer] Address 75 [facility] 7t [place] [address] Care Team Providers Care Art Objects Salesperson Name Role Phone Name, Rolf PARKS Primary Care Provider [phone] Martine Broussard PharmD Unavailable [phone] Reason for Visit * Reason Comments Med Refill Encounter Details Date Type Department Care Team ([facility] st Contact Info) Description 11/02/2023 Refill [facility] 230 [place], [place] [phone] Name, MD oRlf 230 [place] [address] Anxiety; Chronic pain of left knee Social [...] 10/27/2024 1:30 PM EDT Telemedicine [facility]INE [address] [place] [address] Karla Lewis RN 12/05/2024 10:45 AM EDT Office Visit [facility] [address] [place] [address] 27[address] Name, MD Rolf [address] [place] [address] 9[address] documented as of this encounter Goals Goal [...] documented as of this encounter Care Teams Art Objects Salesperson Relationship Specialty Start Date End Date NameRolf MD [address] [place] [address] PCP - General Family Medicine 10/21/17 Puia, Martine, PharmD [address] [place] [address] Pharmacist Internal Medicine 04/20/23 documented as of this encounter
--- OUTSIDE RECORDS SUMMARY | 2024-08-24 11:15 | XMS_ITS | Encounter Summary ---
Author Organization [employer] Address 75 [facility] 7t [place] [address] Care Team Providers Care Pr Internship Name Role Phone Name, Rolf PARKS Primary Care Provider [phone] Puia, Martine PharmD Unavailable [phone] Puia, Martine PharmD Unavailable Reason for Visit * Reason Comments Med Refill Encounter Details Date Type Department Care Team ([facility] st Contact Info) Description 07/21/2023 Refill [facility]INE 230 [place] [address] Name, MD Rolf 230 [place], [place] [phone] Type 2 diabetes mellitus with hyperglycemia, without long-term current use of insulin ([facility]); Iron deficiency anemia, unspecified iron deficiency [...] Description 10/27/2024 1:30 PM EDT Telemedicine [facility] MED[facility]INE [address] [place] [address] Karla Lewis RN 12/05/2024 10:45 AM EDT Office Visit [facility] [address] [place] [address] 6[address]92 Name, MD Rolf [address] [place] [address] documented as of this encounter Goals Goal Patient Goal Type Associated Problems Recent Progress Patient-Stated? Author Hemoglobin A1c < 7 Result Component 6.6( 11:14 AM EST) No Puia, Martine, PharmD Record your blood sugar as directed Result Component No Puia, Martine, PharmD documented as of this encounter Visit Diagnoses Diagnosis Type 2 diabetes mellitus with hyperglycemia, without long-term current use of insulin ([facility]) Iron deficiency anemia, unspecified iron deficiency anemia type documented in this encounter Additional Health Concerns Assessment Noted Time PHQ-9 Depression Total Score: 14 023 1:07 PM EDT documented as of this encounter Care Teams Pr Internship Relationship Specialty Start Date End Date Name, MD Rolf [address] [place] [address] PCP - General Family Medicine 10/21/17 Martine Broussard, Paulo [address] [place] [address] Pharmacist Internal Medicine 04/20/23 Martine Broussard, Paulo [address] [place] [address] Pharmacist Internal Medicine 04/20/23 08/11/23 documented as of this encounter
--- OUTSIDE RECORDS SUMMARY | 2024-08-24 11:15 | XMS_ITS | Encounter Summary ---
Author Organization [employer] Address [address] [place] [address] 7 [place] [address] Care Team Providers Care Nurses Educator Name Role Phone Name, Rolf PARKS Primary Care Provider [phone] Martine Broussard PharmD Unavailable [phone] Reason for Visit * Reason Comments Med Refill Encounter Details Date Type Department Care Team ([facility] st Contact Info) Description 05/02/2024 Refill [facility] MED[facility]INE 230 [place], [place] [phone] Name, MD Rolf 230 [place] [address] Osteoarthritis of knee, unspecified laterality, unspecified osteoarthritis [...] Info) Description 10/27/2024 1:30 PM EDT Telemedicine [facility] MED[facility]INE [address] [place] [address] Karla Lewis RN 12/05/2024 10:45 AM EDT Office Visit [facility] [address] [place] [address] 61264 Name, MD Rolf [address] [place] [address] documented as of this encounter Goals Goal [...] documented as of this encounter Care Teams Nurses Educator Relationship Specialty Start Date End Date Name, MD Rolf [address] [place] [address] PCP - General Family Medicine 10/21/17 Martien Broussard PharmD 230 [place] [address] Pharmacist Internal Medicine 04/20/23 documented as of this encounter
--- OUTSIDE RECORDS SUMMARY | 2024-08-24 11:15 | XMS_ITS | Encounter Summary ---
Author Organization [employer] Address [address] [place] [address] 7 [place] [address] Care Team Providers Care Manager Copy Name Role Phone Name, Rolf PARKS Primary Care Provider [phone] Martine Broussard PharmD Unavailable [phone] Reason for Visit * Reason Onset Date Comments FYI 05/04/2024 Encounter Details Date Type Department Care Team ([facility] st Contact Info) Description 05/04/2024 Telephone [facility]INE 230 [place], [place] [phone] Name, MD Rolf 230 [place], [place] [phone] FYI Social History Tobacco Use Types Packs/Day [...] already scheduled for follow up on 05/31/24. [facility] notes sent to medical records. * Telephone Encounter - Funmi Benjamin - 05/04/2024 4:01 PM EST Tc from pt daughter to report pt went to [facility] on 05/03. A knee replacement was [...] Description 10/27/2024 1:30 PM EDT Telemedicine [facility]INE [address] [place] [address] 90684 Karla Lewis RN 12/05/2024 10:45 AM EDT Office Visit [facility] [address] [place] [address] 9[address]21 NameRolf MD [address] [place] [address] documented as of this encounter Goals Goal [...] as of this encounter Care Teams Manager Copy Relationship Specialty Start Date End Date NameRofl MD [address] [place] [address] PCP - General Family Medicine 10/21/17 Martine Broussard, PharmD [address] [place] [address] 12481 Pharmacist Internal Medicine 04/20/23 documented as of this encounter
--- OUTSIDE RECORDS SUMMARY | 2024-08-24 11:15 | XMS_ITS | Encounter Summary ---
Author Organization [employer] Address [address] [place] [address] 7 [place] [address] Care Team Providers Care Personal Coach Name Role Phone Name, Rolf PARKS Primary Care Provider [phone] Martine Broussard PharmD Unavailable [phone] Reason for Visit * Reason Onset Date Comments Medication Question 05/17/2024 Encounter Details Date Type Department Care Team ([facility] st Contact Info) Description 05/17/2024 Telephone [facility] 230 [place], [place] [phone] Name, MD Rolf 230 [place], [place] [phone] Medication Question Social History Tobacco Use Types [...] the past 12 months, has t he [employer], gas, oil or water company threatened to [...] - 05/19/2024 12:37 PM EST TC vis [facility]#[id number], daughter updated on covering PCP/Dr Hilliard's temporary [...] tablets X 7 days from [facility], [address] [place] [address]. Pt had also received RX on 05/05/[address] Gamble for his chronic pain medications Percocet 5mg #56 tablets. On 05/17/24 Spoke with Daughter, who is patients [employer] FORMER MACHINE OPERATOR as well, and advised she was not to use his Percocet RX from Dr Gamble, only use the pain medication from surgeons office. Advised daughter to call surgeons office for further postop pain medication orders if needed. Return TC via [facility]#[id number], daughter states that surgeons office is no [...] 05/17/2024 12:45 PM EST Return TC via [facility]LS#[id number], spoke with daughter Annetta, corinne advised Percocet [...] dosage of medication. Please contact Daughter at [phone]. (Yakut Speaker) documented in this encounter Plan of Treatment Upcoming Encounters Date Type Department Care Team (Late st Contact Info) Description 10/27/2024 1:30 PM EDT Telemedicine [facility] [address] [place] [address] Karla Lewis RN 12/05/2024 10:45 AM EDT Office Visit [facility] [address] [place] [address] Rolf Gamble MD [address] [place] [address] documented as of this encounter Goals Goal [...] documented as of this encounter Care Teams Personal Coach Relationship Specialty Start Date End Date Rolf Gambel MD [address] [place] [address] 11271 PCP - General Family Medicine 10/21/17 PuiaMartine, PharmD [address] [place] [address]149 Pharmacist Internal Medicine 04/20/23 documented as of this encounter
--- OUTSIDE RECORDS SUMMARY | 2024-08-24 11:15 | XMS_ITS | Clinical Summary ---
Author Organization [employer] Address [address] [place] [address] [address] [place] [address] Care Team Providers Care Shipping Track Supervisor Name Role Phone Name, Rolf PARKS Primary Care Provider [phone] Martine Broussard PharmD Unavailable [phone] Allergies No known active allergies Medications escitalopram (Lexapro) 10 MG tabletIndications :Depression with anxiety TAKE 1 TABLET(10 MG) BY MOUTH IN THE MORNING 30 tablet 2 023 Active Blood Glucose Monitoring Suppl (ONE TOUCH ULTRA 2) w/Device kitIndications:Ty pe 2 diabetes mellitus with hyperglycemia, without long-term current use of insulin (CMS/[facility]) Use once a day 1 kit 024 Active Spacer/Aero-Holdi ng Chambers device Use daily with MDI 1 each 024 Active albuterol (2.5 MG/3ML) 0.083% nebulizer solution Take 3 mL (2.5 mg) by nebulization every 6 (six) hours if needed for wheezing. 75 mL 11 024 Active Fluticasone-Salme terol 500-50 MCG/ACT aerosol powderIndications :COPD exacerbation (CMS/HCC) INHALE ONE PUFF BY MOUTH TWICE A DAY (BULK) 60 each 5 024 Active atorvastatin (Lipitor) 40 MG tabletIndications :Type 2 diabetes mellitus with hyperglycemia, without long-term current use of insulin (CMS/HCC) Take 1 tablet (40 mg) by mouth Once per day. 30 tablet 11 024 2024 Active Umeclidinium Barton (Incruse Ellipta) 62.5 MCG/ACT aerosol powder Inhale [...] hour before a meal 30 capsule Active Dulaglutide 4.5 MG/0.5ML solution auto-injector Inject 0.5 mL (4.5 mg) under the skin 1 (one) time per week. Inject 4.5 mg under the skin 1 (one) time per week. 2 mL 2024 Active losartan (Cozaar) 25 MG tabletIndications :Chronic HFrEF (heart failure with reduced ejection fraction) ([facility]) Take 1 tablet (25 mg) by mouth Once per day. 30 tablet 11 025 2025 Active empagliflozin (Jardiance) 10 MGIndications:Chr onic HFrEF (heart failure with reduced ejection fraction) ([facility]) Take 1 tablet (10 mg) by mouth Once per day. 30 tablet 11 025 2025 Active traZODone (Desyrel) 50 MG tabletIndications :Osteoarthritis of both knees, unspecified osteoarthritis type TAKE 1 TABLET BY MOUTH AT BEDTIME 30 tablet 3 025 Active clonazePAM (KlonoPIN) 2 MG tabletIndications :Chronic insomnia TAKE ONE TABLET BY MOUTH EVERY EVENING AT BEDTIME NEEDED (VIAL) 28 tablet 025 Active Acetaminophen Extra Strength 500 MG tabletIndications :Osteoarthritis of knee, unspecified laterality, unspecified osteoarthritis type TAKE ONE TABLET BY MOUTH EVERY 8 HOURS NEEDED FOR PAIN (VIAL) 90 tablet 3 025 Active metFORMIN (Glucophage) 1000 MG tabletIndications :Type 2 diabetes mellitus with hyperglycemia, without long-term current use of insulin ([facility]) TAKE 1 TABLET BY MOUTH TWICE A DAY WITH MORNING AND EVENING MEALS 60 tablet 11 025 Active glucose blood (OneTouch Ultra) test stripIndications: Type 2 diabetes mellitus with hyperglycemia, without long-term current use of insulin ([facility]) USE ONCE DAILY (BULK) 50 strip Active ibuprofen 600 MG tablet TAKE ONE TABLET BY MOUTH IF NEEDED IN THE MORNING, AT NOON, AND AT BEDTIME FOR MILD PAIN FOR UP TO 10 DAYS (VIAL) 30 tablet 025 Active Lancets (OneTouch Delica Plus Sdyflh24P) miscIndications:T ype 2 diabetes mellitus with hyperglycemia, without long-term current use of insulin (CMS/[facility]) USE ONCE DAILY (BULK) 100 each 025 Active gabapentin (Neurontin) 300 MG capsuleIndication s:Chronic pain of both knees TAKE ONE CAPSULE BY MOUTH TWICE A DAY (VIAL) 60 capsule Active metoprolol succinate XL (Toprol XL) 25 MG 24 hr tablet Take 1 tablet (25 mg) by mouth Once per day. Do not crush or chew. 30 tablet 025 2025 Active oxyCODONE-acetami nophen (Percocet) 5-325 MG tabletIndications :S/P TKR (total knee replacement), left TAKE 1 TABLET BY MOUTH TWO TIMES A DAY FOR 28 DAYS. 56 tablet 025 Active Diclofenac Sodium 1 % gelIndications:Os teoarthritis of knee, unspecified laterality, unspecified osteoarthritis type APPLY 4 GRAMS TO THE AFFECTED KNEE TWICE A DAY (BULK) 100 g 3 025 Active FeroSul 325 (65 Fe) MG tabletIndications :Iron deficiency anemia, unspecified iron deficiency anemia type TAKE ONE TABLET BY MOUTH EVERY OTHER DAY (VIAL) 15 tablet 1 025 Active metFORMIN (Glucophage) 1000 MG tabletIndications :Type 2 diabetes mellitus with hyperglycemia, without long-term current use of insulin ([facility]) take 1 tablet by oral route 2 times every day with morning and evening meals 60 tablet 024 2024 Discontinued(R eorder (will not trigger notification to Pharmacy)) OneTouch Delica Lancets 33G miscIndications:T ype 2 diabetes mellitus with hyperglycemia, without long-term current use of insulin ([facility]) Use once a day 100 each 5 024 2024 Discontinued glucose blood ([employer] [place] Ultra) test stripIndications: Type 2 diabetes mellitus with hyperglycemia, without long-term current use of insulin ([facility]) Use once a day 50 each 5 024 2024 Discontinued Diclofenac Sodium 1 % gelIndications:Os teoarthritis of knee, unspecified laterality, unspecified osteoarthritis type APPLY 4 GRAMS TO THE AFFECTED KNEE TWICE A DAY (BULK) 100 g 3 024 2024 Discontinued Acetaminophen Extra Strength 500 MG tabletIndications :Osteoarthritis of knee, unspecified laterality, unspecified osteoarthritis type TAKE ONE TABLET BY MOUTH EVERY 8 HOURS NEEDED FOR PAIN (VIAL) 90 tablet 3 024 2024 Discontinued(R eorder (will not trigger notification to Pharmacy)) Eliquis 2.5 MG tablet Take 1 tablet by mouth 2 times daily. 024 2024 Discontinued(T herapy completed) oxyCODONE-acetami nophen (Percocet) 5-325 MG tabletIndications :S/P TKR (total knee replacement), left Take 1 tablet by mouth 2 times daily for 28 days. Do not start before June 29, 2024. 56 tablet 025 2024 Discontinued(R eorder (will not trigger notification to Pharmacy)) FeroSul 325 (65 Fe) MG tabletIndications :Iron deficiency anemia, unspecified iron deficiency anemia type TAKE ONE TABLET BY MOUTH EVERY OTHER DAY (VIAL) 15 tablet 1 025 2024 Discontinued gabapentin (Neurontin) 300 MG capsuleIndication s:S/P TKR (total knee replacement), left TAKE ONE CAPSULE BY MOUTH TWICE A DAY (VIAL) 60 capsule 025 2024 Discontinued(R eorder (will not trigger notification to Pharmacy)) clonazePAM (KlonoPIN) 2 MG tabletIndications :Chronic insomnia TAKE ONE TABLET BY MOUTH EVERY EVENING AT BEDTIME NEEDED (VIAL) 28 tablet 025 2024 Discontinued(R eorder (will not trigger notification to Pharmacy)) oxyCODONE-acetami nophen (Percocet) 5-325 MG tabletIndications :S/P TKR (total knee replacement), left Take 1 tablet by mouth 2 times daily for 28 days. 56 tablet 025 2024 Discontinued gabapentin (Neurontin) 300 MG capsuleIndication s:S/P TKR (total knee replacement), left TAKE ONE CAPSULE BY MOUTH TWICE A DAY (VIAL) 60 capsule 025 2024 Discontinued(R eorder (will not trigger notification to Pharmacy)) Active Problems Problem Noted Date Diagnosed Date Chronic HFrEF (heart failure with reduced ejection fraction) 06/09/2024 Overview (06/09/2024): [place] [id number] Cardiology Report Signed Patient: Hong Gutierrez MR#: [id number] : 1955 Acct:[id number] Age/Sex: 68 / M ADM Date: 06/07/24 Loc: [facility] Attending Dr: Rolf Gamble MD Ordering Physician: [...] Rate: bpm BP: 110 / 70 mmHg Dip Painter: CP Referring MD: Rolf Gamble MD Tapper Bit: Beck Cruz MD Symptoms: CARDIOMEGALY I51.7 Study Quality: Adequate with contrast ECG Rhythm: Sinus Conclusions: - 1. Fwmd-oa-lnijkkeo LV systolic dysfunction with LVEF of 40-45% [...] 5.90 PHT: 39.00 MVA PHT: 5.64 Decel Refugio: 3.60 Aortic Valve AoV Pk Manish: 1.64 [...] knee replacement), left Overview (05/31/2024): 04/28/25 at [facility] Tachycardia 07/20/2023 Assessment & Plan (07/20/2023 2:13 [...] on chronic knee pain -Continue following with [facility] Ortho, plan for viscosupplementation once approved through health insurance -Describes pain as severe, not sufficiently responding to APAP and tramadol. -Requesting in office IM toradol. History of resolved GI bleed, reports recent eval through [facility] with endoscopy and colonoscopy that were normal. [...] Encounters Date Type Department Care Team Description 08/23/2024 Refill [facility] [address] [place] [address] Name, MD Rolf Osteoarthritis of knee, unspecified laterality, unspecified osteoarthritis type; Iron deficiency anemia, unspecified iron deficiency anemia type 08/21/2024 Refill [facility] [address] [place] [address] Stefanie Mcneal MD S/P TKR (total knee replacement), left 08/18/2024 11:15 AM EDT Office Visit [facility] [address] [place] [address] Rolf Gamble MD Diabetes mellitus type 2 with neurological manifestations ([facility]) (Primary Dx); Chronic pain of both knees; Chronic HFrEF (heart failure with reduced ejection fraction) ([facility]); Sinus tachycardia; On statin therapy 08/18/2024 Travel 08/16/2024 Refill [facility] [address] [place] [address] Stefanie Mcneal MD S/P TKR (total knee replacement), left 08/16/2024 Refill [facility] [address] [place] [address] NameRolf MD Type 2 diabetes mellitus with hyperglycemia, without long-term current use of insulin ([facility]) 08/16/2024 Refill [facility] [address] [place] [address] Rolf Gamble MD Osteoarthritis of knee, unspecified laterality, unspecified osteoarthritis type; S/P TKR (total knee replacement), left; Type 2 diabetes mellitus with hyperglycemia, without long-term current use of insulin ([facility]) 08/15/2024 Telephone [facility] [address] [place] [address] Ngozi Reyna MT chartprep 08/15/2024 Refill [facility] [address] [place] [address] Rolf Gamble MD Chronic insomnia 07/27/2024 Refill [facility] [address] [place], [place] [phone] Rolf Gambel MD Osteoarthritis of knee, unspecified laterality, unspecified osteoarthritis type; COPD exacerbation ([facility]) 07/27/2024 Refill [facility] [address] [place] [address] Rolf Gamble MD S/P TKR (total knee replacement), left 07/27/2024 Telephone [facility] [address] [place] [address] Name, MD Rolf Med Refill 07/25/2024 Refill [facility] [address] [place] [address] Name, MD Rolf S/P TKR (total knee replacement), left 07/21/2024 Refill [facility] [address] [place] [address] Name, MD Rolf S/P TKR (total knee replacement), left 07/20/2024 Telephone [facility] [address] [place] [address] Name, MD Rolf Med Refill 07/14/2024 Refill [facility] [address] [place] [address] Name, MD Rolf Chronic insomnia 07/12/2024 Refill [facility] [address] [place] [address] Name, MD Rolf Chronic insomnia (Primary Dx); S/P TKR (total knee replacement), left 07/12/2024 Telephone [facility] [address] [place] [address] Karla Lewis, RN Received CARD GRINDER Agreement, BPI & RYLEY 07/05/2024 Refill [facility] [address] [place] [address] Name, MD Rolf S/P TKR (total knee replacement), left 07/03/2024 Refill [facility] [address] [place] [address] Name, MD Rolf S/P TKR (total knee replacement), left 07/03/2024 Telephone [facility] [address] [place] [address] Name, MD Rolf Durable Medical Equipment 07/02/2024 Refill [facility] [address] [place] [address] Name, MD Rolf Iron deficiency anemia, unspecified iron deficiency anemia type 06/30/2024 Telephone [facility] [address] [place] [address] NameRolf MD Medication Question 06/29/2024 Telephone [facility] [address] [place] [phone] Rolf Gamble MD Medication Question 06/28/2024 Refill [facility] [address] [place] [address] Rolf Gamble MD Acute pain of left knee (Primary Dx) 06/27/2024 Refill [facility] [address] [place] [address] Karla Lewis, RN S/P TKR (total knee replacement), left 06/27/2024 Telephone [facility] [address] [place] [address] Rolf Gamble MD FYI 06/27/2024 Telephone [facility] [address] [place] [address] NameRolf MD Nurse Triage 06/26/2024 Refill [facility] [address] [place] [address] NameRolf MD Osteoarthritis of both knees, unspecified osteoarthritis type 06/23/2024 Telephone [facility] [address] [place] [address] NameRolf MD Nurse Triage 06/21/2024 [facility]ill [facility] [address] [place] [address] NameRolf MD S/P TKR (total knee replacement), left; Anxiety 06/13/2024 Refill [facility] [address] [place] [address] NameRolf MD S/P TKR (total knee replacement), left; Anxiety 06/09/2024 9:30 AM EST Telemedicine [facility] [address] [place] [address] Karla Lewis, medical genetics director pain of left knee 06/09/2024 Telephone [facility] [address] [place] [address] Rolf Gamble MD 06/09/2024 Telephone [facility] [address] [place] [address] Rolf Gamble MD Med Refill 06/09/2024 Travel 06/09/2024 Telephone [facility] [address] [place] [address] Karla Lewis, DARYN Recommend CARD GRINDER Tele Tier 2 05/31/2024 11:00 AM EST Office Visit [facility] [address] [place] [address] Name, MD Rolf Iron deficiency anemia, unspecified iron deficiency anemia type (Primary Dx); Pulmonary nodule; Former smoker; Cardiomegaly; Type 2 diabetes mellitus with hyperglycemia, without long-term current use of insulin ([facility]); S/P TKR (total knee replacement), left 05/31/2024 Refill [facility] [address] [place] [address] Name, MD Rolf Osteoarthritis of both knees, unspecified osteoarthritis type from Last 3 Months [...] Sign Reading Time Taken Comments Blood Pressure 134/88 08/18/2024 11:31 AM EDT Pulse 111 08/18/2024 11:31 AM EDT Temperature 36.7 ??C (98 ??F) 08/18/2024 11:31 AM EDT Respiratory Rate 26 08/18/2024 11:31 AM EDT Oxygen Saturation 92% 08/18/2024 11:31 AM EDT Inhaled Oxygen Concentration - - Weight 82.2 kg (181 lb 3.2 oz) 08/18/2024 11:31 AM EDT Height 180.3 cm (5' 11 ) 08/18/2024 11:31 AM EDT Body Mass Index 25.27 08/18/2024 11:31 AM EDT Plan of Treatment Upcoming Encounters Date Type Department Care Team (Late st Contact Info) Description 10/27/2024 1:30 PM EDT Telemedicine [facility] [address] [place] [phone] Karla Lewis RN 12/05/2024 10:45 AM EDT Office Visit [facility] [address] [place] [address] Name, MD Rolf [address] [place] [address] Health Maintenance Due Date Last Done Comments [...] 03/08/2023, 06/08/2019 Lipid Panel 12/12/2024 12/13/2023, 03/08/2023 Eye Exam 06/01/2025 06/01/2023 Colonoscopy 06/26/2025 06/26/2022, 0210/2022, 06/18/2022 Colorectal Cancer Screening 06/26/2025 Tobacco Screening 08/18/2025 08/18/2024 DTaP/Tdap/Td Vaccines (3 - Td or Tdap) [...] directed Result Component No Martine Broussard, PharmD Procedures Procedure Name Priority Date/Time Associated Diagnosis Comments POCT GLUCOSE Routine 08/18/2024 11:33 AM EDT Diabetes mellitus type 2 with neurological manifestations (CMS/HCC) BASIC METABOLIC PANEL Routine 06/12/2024 2:10 PM EST Chronic HFrEF (heart failure with reduced ejection fraction) (CMS/HCC) POCT HEMOGLOBIN Routine 05/31/2024 11:27 AM EST Iron deficiency anemia, unspecified iron deficiency anemia type POCT GLYCATED HEMOGLOBIN, TOTAL Routine 05/31/2024 11:14 AM EST Type 2 diabetes mellitus with hyperglycemia, without long-term current use of insulin ([facility]) POCT GLUCOSE Routine 05/31/2024 11:13 AM EST Type 2 diabetes mellitus with hyperglycemia, without long-term current use of insulin ([facility]) ALBUMIN, RANDOM URINE W/CREATININE Routine 12/13/2023 8:44 AM EDT Type 2 diabetes mellitus with hyperglycemia, without long-term current use of insulin ([facility]) Osteoarthritis of left knee, unspecified osteoarthritis type LIPID PANEL, STANDARD Routine 12/13/2023 8:05 AM EDT Type 2 diabetes mellitus with hyperglycemia, without long-term current use of insulin ([facility]) Osteoarthritis of left knee, unspecified osteoarthritis type HM COLONOSCOPY Routine 06/26/2022 from Last 3 Months or Most Recently Relevant to Health Maintenance Results * (ABNORMAL) POCT Glucose (08/18/2024 11:33 AM EDT) Only the most recent of2 resultswithin the time period is included. Glucose Blood, POC 246(A) 60 - 200 mg/dL QC Media Lot # [id number] Lot# Expiration Date 82,625 Blood Capillary blood specimen / Unknown 08/18/2024 11:33 AM EDT Rolf Name POINT OF CARE TEST ENTER/EDIT OR DERABLES Final Result * (ABNORMAL) Basic Metabolic Panel (06/12/2024 2:10 PM EST) Pathologist [facility] Sodium 140 135 - 145 mmol/L [facility] Potassium 4.1 3.3 - 5.1 mmol/L [facility] Chloride 102 96 - 108 mmol/L [facility] Carbon Dioxide 28 22 - 29 mmol/L [facility] Anion Gap 14 12 - 20 [facility] Urea Nitrogen (BUN) 19(H) 9 - 16 mg/dL [facility] Creatinine, Serum 1.16 0.5 - 1.4 mg/dL [facility] Estimated Glomerular Filt Rate >60 [facility] Comment:Chronic Kidney Disea se: Estimated GFR < 60 mL/min/1.34w3Ahbpto Kidney Disease: Estimated GFR < 15 mL/min/1.73m2 Glucose 180(H) 60 - 115 mg/dL [facility] Calcium 9.7 8.4 - 10.2 mg/dL [facility] Blood Venous blood specimen / Unknown 06/12/2024 2:10 PM EST 06/12/2024 4:02 PM EST Result Bernardo Gamble MD LAB BLOOD ORDERABLES Final Resul t [facility] [address] [place] [phone] * POCT Hemoglobin (05/31/2024 11:27 AM EST) Hemoglobin 13.1 13.0 - 17.0 QC Media Lot # [id number] Lot# Expiration Date 4, Blood 05/31/2024 11:2 7 AM EST Result Bernardo Gamble MD POINT OF CARE TEST ENTER/EDIT OR DERABLES Final Result * (ABNORMAL) POCT HGB A1C (05/31/2024 11:14 AM EST) Hemoglobin A1C 6.6(A) 4.0 - 6.0 % QC Media Lot # [id number] Lot# Expiration Date 71,856 Blood 05/31/2024 11:1 4 AM EST Result Bernardo Gamble MD POINT OF CARE TEST ENTER/EDIT OR DERABLES Final Result * (ABNORMAL) Albumin, Random Urine W/Creatinine (12/13/2023 8:44 AM EDT) Creatinine, Urine 102.20 mg/dL [facility] Microalbumin Urine 37.0 mg/L [facility] Microalbum Creatinine Ratio Ur 36.2(H) <30 ug/mg cr [facility] Comment:Albumin/Creatinine R atio Reference Ranges: Normal: < 30 ug/mg creatinine Microalbuminuria: 30 - 300 ug/mg creatinineClinical Albuminuria: > 300 ug/mg creatinine Urine (Urine, Random) 12/13/2023 8:44 AM EDT 12/13/2023 10:54 AM EDT us Rolf Gamble MD LAB URINE ORDERABLES Final Resul t [facility] [address] [place] [phone] * (ABNORMAL) Lipid Panel, Standard (12/13/2023 8:05 AM EDT) Triglycerides 122 <150 mg/dL [facility] Comment:Desirable Triglyceri de: less than 150 mg/dLBorderline High Triglyceride 150-199 mg/dLHigh Triglyceride: 200-499 mg/dLVery High Triglyceride: greater than or equal to 5OO mg/dL Cholesterol 129 <200 mg/dL [facility] Comment:Desirable Cholestero l: less than 200 mg/dLBorderline High Cholesterol: 200-239 mg/dLHigh Cholesterol: greater than 239 mg/dL LDL Cholesterol Calculated 76 <100 mg/dL [facility] Comment:Desirable LDL: less than 100 mg/dLNear Optimal/Above Optimal LDL: 110- 129 mg/dLBorderline High LDL: 130-159 mg/dLHigh LDL: 160-189 mg/dLVery High LDL: greater than or equal to 190 mg/dL HDL Cholesterol 29(L) >40 mg/dL [facility] Comment:Desirable HDL: great er than 40 mg/dL Note: This HDL assay may give artificially low results in patients with liver disease. Blood Venous blood specimen / Unknown 12/13/2023 8:05 AM EDT 12/13/2023 10:59 AM EDT us Rolf Gamble MD LAB BLOOD ORDERABLES Final Resul t [facility] [address] [place] [address] [phone] * Colonoscopy (06/26/2022) Colonoscopy PERFORMED Comment:REPEAT IN 3 YEARS Historical Provider HEALTH MAINTENANCE Final Result from Last 3 Months or Most Recently Relevant to Health Maintenance Insurance [facility] [employer] (HMO D-SNP) [facility] Care Teams Shipping Track Supervisor Relationship Specialty Start Date End Date Name, MD Rolf [address] [place] [address] PCP - General Family Medicine 10/21/17 Martine Broussard PharmD [address] [place] [address] Pharmacist Internal Medicine 04/20/23
--- OUTSIDE RECORDS SUMMARY | 2024-08-24 11:15 | XMS_ITS | Encounter Summary ---
Author Organization [employer] Address [address] [place] [address] [address] [place] [address] Care Team Providers Care Data Control Assistant Name Role Phone Name, Rolf PARKS Primary Care Provider [phone] Martine Broussard PharmD Unavailable [phone] Reason for Visit * Reason Comments Med Refill Encounter Details Date Type Department Care Team ([facility] st Contact Info) Description 05/31/2024 Refill [facility] [address] [place], [place] [phone] Name, MD Rolf [address] [place] [address] Osteoarthritis of both knees, unspecified osteoarthritis type [...] EDT Telemedicine [facility] [address] [place] [phone] Karla Lewis RN 12/05/2024 10:45 AM EDT Office Visit [facility] [address] [place] [phone] Name, MD Rolf [address] [place] [phone] documented as of this encounter Goals Goal [...] documented as of this encounter Care Teams Data Control Assistant Relationship Specialty Start Date End Date Name, MD Rolf [address] [place] [address] PCP - General Family Medicine 10/21/17 Martine Broussard PharmD [address] [place] [address] Pharmacist Internal Medicine 04/20/23 documented as of this encounter
--- OUTSIDE RECORDS SUMMARY | 2024-08-24 11:15 | XMS_ITS | Encounter Summary ---
Author Organization [employer] Address [address] [place] [address] 7 [place] [address] Care Team Providers Care Infant Childcare Provider Name Role Phone NameRolf MD Primary Care Provider [phone] Martine Broussard PharmD Unavailable [phone] Reason for Visit * Reason Onset Date Comments Prior Authorization 04/25/2024 Encounter Details Date Type Department Care Team (Late st Contact Info) Description 04/25/2024 Telephone [facility] 230 [place], [place] [phone] Name, MD Rolf 230 [place] [address] Prior Authorization Social History Tobacco Use Types [...] - 04/25/2024 9:51 AM EST Tc from [facility] pharmacy stating Diclofenac Sodium 1 % gel need a PA. documented in this encounter Plan of Treatment Upcoming Encounters Date Type Department Care Team (Late st Contact Info) Description 10/27/2024 1:30 PM EDT Telemedicine [address] [address] Karla Lewis RN 12/05/2024 10:45 AM EDT Office Visit [facility] 230 [place] [address] Name, MD Rolf [address] [place] [address] documented as of this encounter Goals Goal [...] documented as of this encounter Care Teams Infant Childcare Provider Relationship Specialty Start Date End Date Name, MD Rolf [address] [place] [address] PCP - General Family Medicine 10/21/17 Martine Broussard, PharmD [address] [place] [address] Pharmacist Internal Medicine 04/20/23 documented as of this encounter
--- OUTSIDE RECORDS SUMMARY | 2024-08-24 11:15 | XMS_ITS | Encounter Summary ---
Author Organization [employer] Address 75 [facility] 7t [place] [address] Care Team Providers Care Bridge Maintenance Worker Name Role Phone Name, Rolf PARKS Primary Care Provider [phone] Puia, Martine PharmD Unavailable [phone] Puia, Martine PharmD Unavailable [phone] Reason for Visit * Reason Comments Med Refill Encounter Details Date Type Department Care Team (Late st Contact Info) Description 06/22/2023 Refill [facility] 230 [place], [place] [phone] Name, MD Rolf 230 [place], [place] [phone] Osteoarthritis of knee, unspecified laterality, unspecified osteoarthritis [...] Info) Description 10/27/2024 1:30 PM EDT Telemedicine [address] [address] Karla Lewis RN 12/05/2024 10:45 AM EDT Office Visit [facility] [address] [place] [address] Name, MD Rolf [address] [place] [address] documented as of this encounter Goals Goal [...] documented as of this encounter Care Teams Bridge Maintenance Worker Relationship Specialty Start Date End Date NameRolf MD [address] [place] [address] PCP - General Family Medicine 10/21/17 Puia, Martine, PharmD 230 [place] [address] Pharmacist Internal Medicine 04/20/23 Martine Broussard, GarrettD 230 [place] [address] Pharmacist Internal Medicine 04/20/23 08/11/23 documented as of this encounter
--- OUTSIDE RECORDS SUMMARY | 2024-08-24 11:15 | XMS_ITS | Encounter Summary ---
Author Organization [employer] Address 75 [facility] 7t [place] [address] Care Team Providers Care Velvet Cutter Name Role Phone Name, Rolf PARKS Primary Care Provider [phone] Martine Broussard PharmD Unavailable [phone] Reason for Visit * Reason Onset Date Comments Paperwork/Forms 11/09/2023 Encounter Details Date Type Department Care Team (Late st Contact Info) Description 11/09/2023 Telephone [facility] 230 [place], [place] [phone] Name, MD Rolf 230 [place] [address] Paperwork/Forms Social History Tobacco Use Types Packs/Day [...] - 11/09/2023 9:20 AM EDT Tc from [place] at [facility] requesting the status of the PCP order Form as well as a copy of the patients physical documented in this encounter Plan of Treatment Upcoming Encounters Date Type Department Care Team (Late st Contact Info) Description 10/27/2024 1:30 PM EDT Telemedicine [facility] [address] [place] [address] Karla Lewis RN 12/05/2024 10:45 AM EDT Office Visit [facility] [address] [place] [address] Name, MD Rolf [address] [place] [address] documented as of this encounter Goals Goal [...] documented as of this encounter Care Teams Velvet Cutter Relationship Specialty Start Date End Date Rolf Gamble MD 230 [place] [address] PCP - General Family Medicine 10/21/17 Martine Broussard, Paulo 230 [place] [address] Pharmacist Internal Medicine 04/20/23 documented as of this encounter
--- OUTSIDE RECORDS SUMMARY | 2024-08-24 11:15 | XMS_ITS | Encounter Summary ---
Author Organization [employer] Address 75 [facility] 7t [place] [address] Care Team Providers Care Emergency Manager Name Role Phone Name, Rolf PARKS Primary Care Provider [phone] Martine Broussard PharmD Unavailable [phone] Reason for Visit * Reason Onset Date Comments Nurse Triage 11/16/2023 Encounter Details Date Type Department Care Team ([facility] st Contact Info) Description 11/16/2023 Telephone [facility] 230 [place], [place] [phone] Name, MD Rolf 230 [place], [place] [phone] Nurse Triage Social History Tobacco Use Types [...] Back pain. Daughter advised of disposition, offered [facility] today. Daughter declines only wants pt seen by PCP. Advised nothing sooner than already booked follow up in December. Per daughter was told Dr. Gamble would be at [facility] on 11/23. Advised unable to guarantee [...] Info) Description 10/27/2024 1:30 PM EDT Telemedicine [address] [address] Karla Lewis RN 12/05/2024 10:45 AM EDT Office Visit [address] [address] Name, MD Rolf [address] [place] [address] documented as of this encounter Goals Goal [...] documented as of this encounter Care Teams Emergency Manager Relationship Specialty Start Date End Date NameRolf MD [address] [place] [address] PCP - General Family Medicine 10/21/17 Puia, Martine, PharmD [address] [place] [address] Pharmacist Internal Medicine 04/20/23 documented as of this encounter
--- OUTSIDE RECORDS SUMMARY | 2024-08-24 11:15 | XMS_ITS | Encounter Summary ---
Author Organization [employer] Address 75 [facility] 7t [place] [address] Care Team Providers Care Credit Reporter Name Role Phone Name, Rolf PARKS Primary Care Provider [phone] Martine Broussard PharmD Unavailable [phone] Reason for Visit * Reason Comments Med Refill Encounter Details Date Type Department Care Team ([facility] st Contact Info) Description 11/26/2023 Refill [facility] 230 [place], [place] [phone] Vivian Barajas, ANP 230 [place] [address] Diabetes mellitus type 2 with neurological manifestations [...] Info) Description 10/27/2024 1:30 PM EDT Telemedicine [facility] [address] [place] [address] Karla Lewis RN 12/05/2024 10:45 AM EDT Office Visit [facility] [address] [place] [address] Name, MD Rolf [address] [place] [address] documented as of this encounter Goals Goal [...] documented as of this encounter Care Teams Credit Reporter Relationship Specialty Start Date End Date Rolf Gamble MD [address] [place] [address] PCP - General Family Medicine 10/21/17 PuiaLanceMartine, PharmD [address] [place] [address] Pharmacist Internal Medicine 04/20/23 documented as of this encounter
--- OUTSIDE RECORDS SUMMARY | 2024-08-24 11:15 | XMS_ITS | Encounter Summary ---
Author Organization [employer] Address [address] [place] [address] 7t [place] [address] Care Team Providers Care Sequins Slinger Name Role Phone Name, Rolf PARKS Primary Care Provider [phone] Martine Broussard PharmD Unavailable [phone] Reason for Visit * Reason Comments Med Refill Encounter Details Date Type Department Care Team ([facility] st Contact Info) Description 03/21/2024 Refill [facility] 230 [place], [place] [phone] Name, MD Rolf 230 [place] [address] Osteoarthritis of knee, unspecified laterality, unspecified osteoarthritis [...] 10/27/2024 1:30 PM EDT Telemedicine [facility] [address] [place] [address] Karla Lewis RN 12/05/2024 10:45 AM EDT Office Visit [facility] [address] [place] [address] Name, MD Rolf [address] [place] [address] documented as of this encounter Goals Goal [...] documented as of this encounter Care Teams Sequins Slinger Relationship Specialty Start Date End Date Name, MD Rolf 230 [place] [address] PCP - General Family Medicine 10/21/17 Martine Broussard, Paulo 230 [place] [address] Pharmacist Internal Medicine 04/20/23 documented as of this encounter
--- OUTSIDE RECORDS SUMMARY | 2024-08-24 11:15 | XMS_ITS | Encounter Summary ---
Author Organization [employer] Address 75 [facility] 7t [place] [address] Care Team Providers Care Salvage Inspector Wood Parts Name Role Phone Name, Rolf PARKS Primary Care Provider [phone] Martine Broussard PharmD Unavailable [phone] Reason for Visit * Reason Comments Med Refill Encounter Details Date Type Department Care Team ([facility] st Contact Info) Description 11/26/2023 Refill [facility] 230 [place], [place] [phone] Vivian Barajas, ANP 230 [place] [address] Diabetes mellitus type 2 with neurological manifestations [...] 1:30 PM EDT Telemedicine [facility] [address] [place] [address] Karla Lewis RN 12/05/2024 10:45 AM EDT Office Visit [facility] [address] [place] [address] Name, MD Rolf [address] [place] [address] documented as of this encounter Goals Goal [...] as of this encounter Care Teams Salvage Inspector [employer] Parts Relationship Specialty Start Date End Date Rolf Gamble MD [address] [place] [address] PCP - General Family Medicine 10/21/17 PuiaLanceMartine, PharmD [address] [place] [address] Pharmacist Internal Medicine 04/20/23 documented as of this encounter
--- OUTSIDE RECORDS SUMMARY | 2024-08-24 11:15 | XMS_ITS | Encounter Summary ---
Author Organization [employer] Address [address] [facility] 7t [place] [address] Care Team Providers Care Pickler Helper Name Role Phone Name, Rolf PARKS Primary Care Provider Puia, Martine PharmD Unavailable [phone] Puia, Martine PharmD Unavailable Reason for Visit * Reason Comments Med Refill Encounter Details Date Type Department Care Team (Late st Contact Info) Description 07/03/2023 Refill [facility] 230 [place], [place] [phone] Name, MD Rolf 230 [place], [place] [phone] Osteoarthritis of knee, unspecified laterality, unspecified osteoarthritis [...] Info) Description 10/27/2024 1:30 PM EDT Telemedicine [address] [address] Karla Lewis RN 12/05/2024 10:45 AM EDT Office Visit [facility] [address] [place] [address] Name, MD Rolf [address] [place] [address] documented as of this encounter Goals Goal [...] documented as of this encounter Care Teams Pickler Helper Relationship Specialty Start Date End Date NameRolf MD [address] [place] [address] PCP - General Family Medicine 10/21/17 Puia, Martine, PharmD 230 [place] [address] Pharmacist Internal Medicine 04/20/23 Martine Broussard, GarrettD 230 [place] [address] Pharmacist Internal Medicine 04/20/23 08/11/23 documented as of this encounter
--- OUTSIDE RECORDS SUMMARY | 2024-08-24 11:15 | XMS_ITS | Encounter Summary ---
Author Organization [employer] Address 75 [facility] 7t [place] [address] Care Team Providers Care Ferryboat Operator Name Role Phone Name, Rolf PARKS Primary Care Provider [phone] Martine Broussard PharmD Unavailable [phone] Reason for Visit * Reason Comments Med Refill Encounter Details Date Type Department Care Team ([facility] st Contact Info) Description 09/15/2023 Refill [facility] 230 [place], [place] [phone] Name, MD Rolf 230 [place] [address] Osteoarthritis of knee, unspecified laterality, unspecified osteoarthritis [...] Info) Description 10/27/2024 1:30 PM EDT Telemedicine [facility] [address] [place] [address] Karla Lewis RN 12/05/2024 10:45 AM EDT Office Visit [facility] [address] [place] [address] Name, MD Rolf [address] [place] [address] documented as of this encounter Goals Goal [...] documented as of this encounter Care Teams Ferryboat Operator Relationship Specialty Start Date End Date Rolf Gamble MD [address] [place] [address] PCP - General Family Medicine 10/21/17 PuiaLanceMartine, PharmD [address] [place] [address] Pharmacist Internal Medicine 04/20/23 documented as of this encounter
--- OUTSIDE RECORDS SUMMARY | 2024-08-24 11:15 | XMS_ITS | Encounter Summary ---
Author Organization [employer] Address 75 [facility] 7t [place] [address] Care Team Providers Care Catastrophe Claims Supervisor Name Role Phone Name, Rolf PARKS Primary Care Provider [phone] Martine Broussard PharmD Unavailable [phone] Reason for Visit * Reason Comments Med Refill Encounter Details Date Type Department Care Team ([facility] st Contact Info) Description 10/06/2023 Refill [facility] 230 [place], [place] [phone] Name, MD Rolf 230 [place] [address] Osteoarthritis of knee, unspecified laterality, unspecified osteoarthritis [...] 10/27/2024 1:30 PM EDT Telemedicine [facility] [address] [place] [address] Karla Lewis RN 12/05/2024 10:45 AM EDT Office Visit [facility] [address] [place] [address] Name, MD Rolf [address] [place] [address] documented as of this encounter Goals Goal [...] documented as of this encounter Care Teams Catastrophe Claims Supervisor Relationship Specialty Start Date End Date Rolf Gamble MD [address] [place] [address] PCP - General Family Medicine 10/21/17 PuiaLanceMartine, PharmD [address] [place] [address] Pharmacist Internal Medicine 04/20/23 documented as of this encounter
--- OUTSIDE RECORDS SUMMARY | 2024-08-24 11:15 | XMS_ITS | Encounter Summary ---
Author Organization [employer] Address 75 [facility] 7t [place] [address] Care Team Providers Care Exterminator Name Role Phone Name, Rolf PARKS Primary Care Provider [phone] Puia, Martine PharmD Unavailable [phone] Puia, Martine PharmD Unavailable [phone] Reason for Visit * Reason Comments Med Refill Encounter Details Date Type Department Care Team ([facility] st Contact Info) Description 07/12/2023 Refill [facility] 230 [place], [place] [phone] Name, MD Rolf 230 [place], [place] [phone] Anxiety Social History Tobacco Use Types Packs/Day [...] 10/27/2024 1:30 PM EDT Telemedicine [facility]INE [address] [place] [address] Karla Lewis RN 12/05/2024 10:45 AM EDT Office Visit [facility] [address] [place] [address] Name, MD Rolf [address] [place] [address] documented as of this encounter Goals Goal [...] documented as of this encounter Care Teams Exterminator Relationship Specialty Start Date End Date Rolf Gamble MD [address] [place] [address] PCP - General Family Medicine 10/21/17 PuiaMartine, PharmD [address] [place] [address] Pharmacist Internal Medicine 04/20/23 Martine Broussard PharmD [address] [place], [place] [address] [address] Pharmacist Internal Medicine 04/20/23 08/11/23 documented as of this encounter
--- OUTSIDE RECORDS SUMMARY | 2024-08-24 11:15 | XMS_ITS | Encounter Summary ---
Author Organization [employer] Address [address] [place] [address] 7 [place] [address] Care Team Providers Care Court Reporter Name Role Phone Name, Rolf PARKS Primary Care Provider [phone] Matrine Broussard PharmD Unavailable [phone] Reason for Visit * Reason Comments Med Refill Encounter Details Date Type Department Care Team ([facility] st Contact Info) Description 05/24/2024 Refill [facility] 230 [place], [place] [phone] Name, MD Rolf 230 [place] [address] Osteoarthritis of both knees, unspecified osteoarthritis type [...] Info) Description 10/27/2024 1:30 PM EDT Telemedicine [facility] [address] [place] [address] Karla Lewis RN 12/05/2024 10:45 AM EDT Office Visit [facility] [address] [place] [address] Name, MD Rolf [address] [place] [address] documented as of this encounter Goals Goal [...] documented as of this encounter Care Teams Court Reporter Relationship Specialty Start Date End Date Name, MD Rolf 230 [place] [address] PCP - General Family Medicine 10/21/17 Martine Broussard PharmD 230 [place] [address] Pharmacist Internal Medicine 04/20/23 documented as of this encounter
--- OUTSIDE RECORDS SUMMARY | 2024-08-24 11:15 | XMS_ITS | Encounter Summary ---
Author Organization [employer] Address 75 [facility] 7 [place] [address] Care Team Providers Care Soda Clerk Name Role Phone Name, Rolf PARKS Primary Care Provider [phone] Martine Broussard PharmD Unavailable Reason for Visit * Reason Comments Med Refill Encounter Details Date Type Department Care Team ([facility] st Contact Info) Description 04/24/2024 Refill [facility] 230 [place], [place] [phone] Vivian Barajas, ANP 230 [place] [address] Diabetes mellitus type 2 with neurological manifestations [...] Info) Description 10/27/2024 1:30 PM EDT Telemedicine [facility]INE [address] [place] [address] Karla Lewis RN 12/05/2024 10:45 AM EDT Office Visit [facility] [address] [place] [address] Name, MD Rolf [address] [place] [address] documented as of this encounter Goals Goal [...] documented as of this encounter Care Teams Soda Clerk Relationship Specialty Start Date End Date Name, MD Rolf 230 [place] [address] PCP - General Family Medicine 10/21/17 Martine Broussard PharmD 230 [place] [address] Pharmacist Internal Medicine 04/20/23 documented as of this encounter
--- OUTSIDE RECORDS SUMMARY | 2024-08-24 11:15 | XMS_ITS | Encounter Summary ---
Author Organization [employer] Address 75 [facility] 7t [place] [address] Care Team Providers Care Elevated Motorman Name Role Phone Name, Rolf PARKS Primary Care Provider [phone] Puia, Martine PharmD Unavailable [phone] Puia, Martine PharmD Unavailable [phone] Reason for Visit * Reason Comments Med Refill Encounter Details Date Type Department Care Team (Late st Contact Info) Description 07/16/2023 Refill [facility] 230 [place], [place] [phone] Name, MD Rolf 230 [place], [place] [phone] Osteoarthritis of knee, unspecified laterality, unspecified osteoarthritis [...] Info) Description 10/27/2024 1:30 PM EDT Telemedicine [address] [address] Karla Lewis RN 12/05/2024 10:45 AM EDT Office Visit [facility] [address] [place] [address] Name, MD Rolf [address] [place] [address] documented as of this encounter Goals Goal [...] documented as of this encounter Care Teams Elevated Motorman Relationship Specialty Start Date End Date NameRolf MD [address] [place] [address] PCP - General Family Medicine 10/21/17 Puia, Martine, PharmD 230 [place] [address] Pharmacist Internal Medicine 04/20/23 Martine Broussard, GarrettD 230 [place] [address] Pharmacist Internal Medicine 04/20/23 08/11/23 documented as of this encounter
--- OUTSIDE RECORDS SUMMARY | 2024-08-24 11:15 | XMS_ITS | Encounter Summary ---
Author Organization [employer] Address 75 [facility] 7t [place] [address] Care Team Providers Care Memorial Counselor Name Role Phone Name, Rolf PARKS Primary Care Provider [phone] Martine Broussard PharmD Unavailable [phone] Reason for Visit * Reason Onset Date Comments Med Refill 11/16/2023 Encounter Details Date Type Department Care Team (Late st Contact Info) Description 11/16/2023 Telephone [facility] 230 [place], [place] [phone] Name, MD Rolf 230 [place], [place] [phone] Med Refill Social History Tobacco Use Types [...] 2 MG tablet [id number] [place] [id number] [facility] documented in this encounter Plan of Treatment Upcoming Encounters Date Type Department Care Team (Late st Contact Info) Description 10/27/2024 1:30 PM EDT Telemedicine [facility] [address] [place] [address] Karla Lewis RN 12/05/2024 10:45 AM EDT Office Visit [facility] [address] [place] [address] Name, MD Rolf [address] [place] [address] documented as of this encounter Goals Goal [...] documented as of this encounter Care Teams Memorial Counselor Relationship Specialty Start Date End Date Name, MD Rolf 230 [place] [address] PCP - General Family Medicine 10/21/17 Martine Broussard, PharmD 230 [place] [address] Pharmacist Internal Medicine 04/20/23 documented as of this encounter
--- OUTSIDE RECORDS SUMMARY | 2024-08-24 11:15 | XMS_ITS | Encounter Summary ---
Author Organization [employer] Address 75 [facility] 7t [place] [address] Care Team Providers Care Quality And Reliability Engineer Name Role Phone NameRolf MD Primary Care Provider [phone] Martine Broussard PharmD Unavailable Reason for Visit * Reason Onset Date Comments Durable Medical Equipment 04/05/2024 Encounter Details Date Type Department Care Team (Late st Contact Info) Description 04/05/2024 Telephone [facility] [address] [place], [place] [phone] Name, MD Rolf 230 [place] [address] Durable Medical Equipment Social History Tobacco Use [...] surgery. Pt denies any trouble defers a [facility] appt. Pleasereview and advise, thank you. Tc from pt daughter requesting a Portable toilet due to him falling yesterday and not reaching the bathroom. If any questions contact pt Daughter at [phone] * Telephone Encounter - Kip Grant - 04/05/2024 3:03 PM EST Tc from pt daughter requesting a Portable toilet due to him falling yesterday and not reaching the bathroom. If any questions contact pt Daughter at [phone] documented in this encounter Plan of Treatment Upcoming Encounters Date Type Department Care Team (Late st Contact Info) Description 10/27/2024 1:30 PM EDT Telemedicine [address] [address] Karla Lewis RN 12/05/2024 10:45 AM EDT Office Visit [facility]INE [address] [place] [address] Name, MD Rolf [address] [place] [address] documented as of this encounter Goals Goal [...] as of this encounter Care Teams Quality And Reliability Engineer Relationship Specialty Start Date End Date Name, MD Rolf [address] [place] [address] PCP - General Family Medicine 10/21/17 Martine Broussard, PharmD [address] [place] [address] Pharmacist Internal Medicine 04/20/23 documented as of this encounter
--- OUTSIDE RECORDS SUMMARY | 2024-08-24 11:15 | XMS_ITS | Encounter Summary ---
Author Organization [employer] Address 75 [facility] 7 [place] [address] Care Team Providers Care Tree And Shrub Technician Name Role Phone Name, Rolf PARKS Primary Care Provider [phone] Martine Broussard PharmD Unavailable [phone] Reason for Visit * Reason Onset Date Comments Med Refill 05/01/2024 Encounter Details Date Type Department Care Team (Late st Contact Info) Description 05/01/2024 Telephone [facility] MED[facility]INE 230 [place], [place] [phone] Name, MD Rolf 230 [place], [place] [phone] Med Refill Social History Tobacco Use Types [...] 2:20 PM EST Medication was sent to [facility] #[id number] on 03/06/24 #30 with 3 refills. * Telephone Encounter - Osmar Gonsalez - 05/01/2024 2:15 PM EST TC from pt requesting medication refill. Medications needing refill : traZODone (Desyrel) 50 MG tablet To be sent to: [facility][id number] - [place] [address] [address] [facility] [address] documented in this encounter Plan of Treatment Upcoming Encounters Date Type Department Care Team (Late st Contact Info) Description 10/27/2024 1:30 PM EDT Telemedicine [facility] [address] [place] [address] Karla Lewis RN 12/05/2024 10:45 AM EDT Office Visit [facility] [address] [place] [address] NameRolf MD [address] [place] [address] documented as of this encounter Goals Goal [...] documented as of this encounter Care Teams Tree And Shrub Technician Relationship Specialty Start Date End Date NameRolf MD [address] [place] [address] PCP - General Family Medicine 10/21/17 Martine Broussard, PharmD [address] [place] [address] Pharmacist Internal Medicine 04/20/23 documented as of this encounter
--- OUTSIDE RECORDS SUMMARY | 2024-08-24 11:15 | XMS_ITS | Encounter Summary ---
Author Organization [employer] Address 75 [facility] 7t [place] [address] Care Team Providers Care Prick Stitcher Name Role Phone Name, Rolf PARKS Primary Care Provider [phone] Martine Broussard PharmD Unavailable [phone] Reason for Visit * Reason Comments Med Refill Encounter Details Date Type Department Care Team (Late st Contact Info) Description 04/03/2024 Refill [facility] MED[facility]INE 230 [place] [address] Marcela Ruiz NP 230 [place] [address] Osteoarthritis of knee, unspecified laterality, unspecified osteoarthritis [...] Info) Description 10/27/2024 1:30 PM EDT Telemedicine [facility] MED[facility]INE [address] [place] [address] Karla Lewis RN 12/05/2024 10:45 AM EDT Office Visit [facility] [address] [place] [address] Name, MD Rolf [address] [place] [address] documented as of this encounter Goals Goal [...] documented as of this encounter Care Teams Prick Stitcher Relationship Specialty Start Date End Date Name, MD Rolf [address] [place] [address] PCP - General Family Medicine 10/21/17 Martine Broussard PharmD [address] [place] [address] Pharmacist Internal Medicine 04/20/23 documented as of this encounter
--- OUTSIDE RECORDS SUMMARY | 2024-08-24 11:16 | XMS_ITS | Encounter Summary ---
Author Organization [employer] Address 75 [facility] 7t [place] [address] Care Team Providers Care Trimmer Meat Name Role Phone Name, Rolf PARKS Primary Care Provider [phone] Martine Broussard PharmD Unavailable [phone] Reason for Visit * Reason Comments Med Refill Encounter Details Date Type Department Care Team (Late st Contact Info) Description 01/31/2024 Refill [facility] [address] [place], [place] [phone] Name, MD Rolf 230 [place] [address] Chronic pain of left knee; Anxiety; Osteoarthritis [...] Description 10/27/2024 1:30 PM EDT Telemedicine [address] [address] Karla Lewis RN 12/05/2024 10:45 AM EDT Office Visit [facility] [address] [place] [address] Name, MD Rolf [address] [place] [address] documented as of this encounter Goals Goal [...] documented as of this encounter Care Teams Trimmer Meat Relationship Specialty Start Date End Date Name, MD Rolf 230 [place] [address] PCP - General Family Medicine 10/21/17 Martine Broussard PharmD 230 [place] [address] Pharmacist Internal Medicine 04/20/23 documented as of this encounter
--- OUTSIDE RECORDS SUMMARY | 2024-08-24 11:16 | XMS_ITS | Encounter Summary ---
Author Organization [employer] Address [address] [place] [address] 7 [place] [address] Care Team Providers Care Literacy Consultant Name Role Phone Name, Rolf PARKS Primary Care Provider [phone] Martine Broussard PharmD Unavailable [phone] Reason for Visit * Reason Onset Date Comments FYI 06/27/2024 Encounter Details Date Type Department Care Team ([facility] st Contact Info) Description 06/27/2024 Telephone [facility] 230 [place], [place] [phone] Name, MD Rolf 230 [place], [place] [phone] FYI Social History Tobacco Use Types Packs/Day [...] daughter to report she had to call [facility] for an emergency, upon arriving home they [...] Info) Description 10/27/2024 1:30 PM EDT Telemedicine [facility] [address] [place] [address] [phone] Karla Lewis RN 12/05/2024 10:45 AM EDT Office Visit [facility] [address] [place] [address] Name, MD Rolf [address] [place] [address] documented as of this encounter Goals Goal [...] documented as of this encounter Care Teams Literacy Consultant Relationship Specialty Start Date End Date Name, MD Rolf [address] [place] [address] PCP - General Family Medicine 10/21/17 Martine Broussard, PharmD [address] [place] [address] Pharmacist Internal Medicine 04/20/23 documented as of this encounter
--- OUTSIDE RECORDS SUMMARY | 2024-08-24 11:16 | XMS_ITS | Encounter Summary ---
Author Organization [employer] Address 75 [facility] 7 [place] [address] Care Team Providers Care Multicultural Internship Name Role Phone Name, Rolf PARKS Primary Care Provider [phone] Martine Broussard PharmD Unavailable [phone] Reason for Visit * Reason Comments Med Refill Encounter Details Date Type Department Care Team (Late st Contact Info) Description 01/11/2024 Refill [facility] 230 [place], [place] [phone] Vivian Barajas, ANP 230 [place] [address] Diabetes mellitus type 2 with neurological manifestations [...] Info) Description 10/27/2024 1:30 PM EDT Telemedicine [facility] [address] [place] [address] Karla Lewis RN 12/05/2024 10:45 AM EDT Office Visit [facility] [address] [place] [address] Name, MD Rolf [address] [place] [address] documented as of this encounter Goals Goal [...] documented as of this encounter Care Teams Multicultural Internship Relationship Specialty Start Date End Date Name, MD Rolf 230 [place] [address] PCP - General Family Medicine 10/21/17 Martine Broussard PharmD [address] [place] [address] Pharmacist Internal Medicine 04/20/23 documented as of this encounter
--- OUTSIDE RECORDS SUMMARY | 2024-08-24 11:16 | XMS_ITS | Encounter Summary ---
Author Organization [employer] Address 75 [facility] 7t [place] [address] Care Team Providers Care Yardage Caller Name Role Phone Name, Rolf PARKS Primary Care Provider [phone] Martine Broussard PharmD Unavailable [phone] Reason for Visit * Reason Comments Med Refill Encounter Details Date Type Department Care Team (Late st Contact Info) Description 01/18/2024 Refill [facility] 230 [place], [place] [phone] Name, MD Rolf 230 [place] [address] Iron deficiency anemia, unspecified iron deficiency anemia [...] Description 10/27/2024 1:30 PM EDT Telemedicine [facility] [address] [place] [address] Karla Lewis RN 12/05/2024 10:45 AM EDT Office Visit [facility] [address] [place] [address] Name, MD Rolf [address] [place] [address] documented as of this encounter Goals Goal [...] documented as of this encounter Care Teams Yardage Caller Relationship Specialty Start Date End Date Name, MD Rolf [address] [place] [address] PCP - General Family Medicine 10/21/17 Martine Broussard PharmD [address] [place] [address] Pharmacist Internal Medicine 04/20/23 documented as of this encounter
--- OUTSIDE RECORDS SUMMARY | 2024-08-24 11:16 | XMS_ITS | Encounter Summary ---
Author Organization [employer] Address 75 [facility] 7 [place] [address] Care Team Providers Care Main Line Station Engineer Name Role Phone Name, Rolf PARKS Primary Care Provider [phone] Martine Broussard PharmD Unavailable [phone] Reason for Visit * Reason Comments Med Refill Encounter Details Date Type Department Care Team (Late st Contact Info) Description [address] [facility] 230 [place], [place] [phone] Vivian Barajas, ANP 230 [place] [address] Diabetes mellitus type 2 with neurological manifestations [...] Info) Description 10/27/2024 1:[address] [facility] [address] [place] [address] Karla Lewis RN 12/05/2024 10:45 AM EDT Office Visit [facility] [address] [place] [address] Rolf Gabmle MD [address] [place] [address] documented as of this encounter Goals Goal [...] documented as of this encounter Care Teams Main Line Station Engineer Relationship Specialty Start Date End Date Rolf Gamble MD 230 [place] [address] PCP - General Family Medicine 10/21/17 Martine Broussard PharmD [address] [place] [address] Pharmacist Internal Medicine 04/20/23 documented as of this encounter
--- OUTSIDE RECORDS SUMMARY | 2024-08-24 11:16 | XMS_ITS | Encounter Summary ---
Author Organization [employer] Address 75 [facility] 7t [place] [address] Care Team Providers Care Gas Compressor Operator Name Role Phone Name, Rolf PARKS Primary Care Provider [phone] Martine Broussard PharmD Unavailable [phone] Reason for Visit * Reason Comments Med Refill Encounter Details Date Type Department Care Team (Late st Contact Info) Description 01/28/2024 Refill [facility] 230 [place], [place] [phone] Name, MD Rolf 230 [place] [address] Iron deficiency anemia, unspecified iron deficiency anemia [...] 1:30 PM EDT Telemedicine [facility] [address] [place] [address] Karla Lewis RN 12/05/2024 10:45 AM EDT Office Visit [facility] [address] [place] [address] Name, MD Rolf [address] [place] [address] documented as of this encounter Goals Goal [...] as of this encounter Care Teams Gas Compressor Operator Relationship Specialty Start Date End Date Name, MD Rolf 230 [place] [address] PCP - General Family Medicine 10/21/17 Martine Broussard PharmD 230 [place] [address] Pharmacist Internal Medicine 04/20/23 documented as of this encounter
--- OUTSIDE RECORDS SUMMARY | 2024-08-24 11:16 | XMS_ITS | Data Portability ---
Author Organization [employer] Address [address] [place] [address] Care Team Providers Care Sap Security Consultant Name Role Phone HIM ARELI OTHER [facility] OTHER [phone] NAME, TABBY OTHER Assessment Encounter Date Assessment Date Assessment LastModified by Organization Details LastModified Time 02/15/2024 02/15/2024 I have reviewed and agree with the assessment and plan as documented by the batter mixer. I provided real time medical direction for this encounter and was immediately available to provide additional phone based assistance as needed. History as noted by batter mixer. Pt with history of COPD, not on [...] assessment and plan as documented by the batter mixer. I provided real-time medical direction for this encounter and was immediately available to provide additional phone-based assistance as needed. History as noted in EMR and by batter mixer. I would add / emphasize: Patient with [...] QL IA, respirato ry specimen 2024 025 [facility], [address] [place] [address], [id number] 5 20:42:03 rapid flu (A+B) 2024 025 [facility], [address] [place] [address], [id number] 5 20:42:03 rapid SARS CoV 2 Ag, QL IA, respirato ry specimen [facility] [address] [place] [address], [id number] 4 10:42:40 rapid flu (A+B) 2023 024 [facility], [address] [place] [address], [id number] 4 10:42:40 Referral None recorded. Procedures None recorded. Surgeries None recorded. Imaging None recorded. Medication Orders sodium chloride 0.9 % intraveno us solution 2024 025 [facility][id number], [address] [place], [place], [id number], 5 20:12:04 azithromy horacio 250 mg tablet 2024 025 [facility] #[id number], [address], [place], [id number], 5 21:21:47 Augmentin 500 mg-125 mg tablet 2024 025 [facility] #[id number], [address], [place], [id number], 5 21:21:45 ceftriaxo ne 1 gram solution for injection 2024 025 [facility] #35170, [address], [place], [id number], 5 21:23:11 azithromy horacio 250 mg tablet 2024 025 [facility] #34596, [address], [place], [id number], 5 21:23:11 benzonata te 200 mg capsule 2023 024 [facility] #[id number], [address], [place], [id number], 4 10:47:21 Patient TargetsNo targets recorded. Patient InstructionsNo instructions recorded. Reason for Referral None Reported. Results Created Date Observation Date Name Description Value Unit Range Abnormal Flag Note LastModifiedBy Organization Detail LastModifiedTime 02/15/20 24 02/15/2024 rapid flu (A+B) Flu negati ve Not Available [facility] ed [address] [place] [address], [id number] 02/15/2024 10:42:15 02/15/20 24 02/15/2024 rapid SARS CoV 2 Ag, QL IA, respi rator y speci men rapid SARS CoV 2 Ag, QL IA, respiratory specimen negati ve Not Available [facility] ed [address] [place] [address], [id number] 02/15/2024 10:42:12 Result Notes None recorded. Medical Equipment None Reported. Allergies No known drug allergies Medications Name Sig Start Date Stop Date Status Note LastModified by Organization Details LastModified Time medbox status USE DIRECTED active Not Available [...] No t Available benzonatate 200 mg capsule Take 1 capsule(s) 3 times a day by oral route as needed for 10 days. active Not Available Not Available No t [...] Not Available Not Available No t Available [employer] Ultra Test strips USE DIRECTED TO TEST [...] % 148 mm[Hg] 86 mm[Hg] Not Available [employer] - production 4 10:38:51 Date Recorded Body height Heart rate Respiratory rate Oxygen saturation Oxygen saturation in Arterial blood by Pulse oximetry Body weight Body temperature Systolic blood pressure Diastolic blood pressure Provider Name and Address Organization Details Last Updated DateTime 5 180.34 cm 130 /min 20 /min 93 % 93 % 83196.5 6 g 99.9 [degF] 149 mm[Hg] 79 mm[Hg] Not Available [employer] - production 5 18:39:33 Social History None recorded. Functional Status None recorded. Mental Status None recorded. Family History Nothing Reported. Medical History No medical history recorded. Past Encounters Encounter ID Performer Location Encounter Start Date Encounter Closed Date Diagnosis/Indication Diagnosis SNOMED-CT Code Diagnosis ICD10 Code Diagnosis Note [id number] Veto Valladares MD [facility] [address] [place] [phone] 02/15/2024 10:38:48 02/15/2024 12:04:39 Cough 07933219 R05.9 [id number] Ron Bui MD [facility] [address] [place] [phone] 06/23/2024 18:28:01 06/24/2024 09:28:00 Community acquired pneumonia 340326443 J18.9 Health Concerns Section Related Observation LastModified by Organization Detai ls LastModified Time None Recorded Concern Status LastModified by Organization Details LastModified Time None Recorded Advance Directives Directive None Recorded Payers Encounter Date Sequence Insurance Name Policy Number Policy Daniel Covered Member ID Daniel Member ID Guarantor Name 02/15/2024 1 [facility] - DOS ON OR AFTER 2022 - DUAL ELIGIBLE - [facility] OPTIONS AND ONE CARE (MEDICARE REPLACEMENT/ADV ANTAGE - HMO) Hong Antoine [id number] Hong Antoine 06/23/2024 1 [facility] - DOS ON OR AFTER 2022 - DUAL ELIGIBLE - [facility] OPTIONS AND ONE CARE (MEDICARE REPLACEMENT/ADV ANTAGE - HMO) Hong Antoine [id number] Hong Antoine Notes Date Note Type Note Provider Name and Address Organization Details Recorded Time 02/15/2024 text/html This was a supervised home visit with batter mixer Samuel Keen. HPI: PMHx: EmphysemaCall returned to [facility] to triage below. Spoke with [...] cRC RN DID NOT NEED FURTHER INFO [employer] Organization Information for Samuel Keen Legal Name: [facility] Address: [address] [place] [address], [place] [address], Office Machine Installer: Reddy Beckford MD [facility] No.: [id number] [employer] POC Test Results from Samuel Keen - ALS Rapid COVID antigen (10:37:06) COVID: - Rapid influenza antigen (10:37:07) Flu: - .................... .................... .................... .................... .................... .................... .................... . [employer] Note From Samuel Keen: Pt with hx [...] . Disposition: Fulfilled Veto Valladares MD [address] [facility],[address], [place], [phone], [facility] - [employer] 02/15/2024 11:17:19 06/23/2024 text/html HPI: Call returned to Hong Antoine to triage below. Spoke with Sugeil daughter who is on HIPAA. Reports pt having productive cough x 1 week. Denies any other HEIDY sx. Subjective fevers. Negative homekit for COVID-19 3 days ago. Denies any wheezing. Using Inhaler Q4H. Using Nebulizer Q6H. Pt and daughter unable to come into [facility] today. Agree to [employer] for eval. Confirmed demographics and allergies. .................... .................... .................... .................... .................... .................... .................... . [facility] Nurse Triage Notes (Lety Wood - RN): Chief Complaints: Cough PMH: Hypertension, Diabetes Mellitus Type 2, Emphysema PMH Reviewed at 06/23/2024 - 11:17 Allergies Reviewed at 06/23/2024 - 11:17 Comments: HPI reviewed- NE [employer] Organization Information for Molly Partida [employer] Legal Name: [employer].? Address: [address] [place] [address], Office Machine Installer: Avery Herrera MD [place] No.: [id number] [employer] POC Test Results from [employer] Rapid COVID antigen (18:39:39) COVID: - Attachments uploaded as part of this test result can be found under Documents section. Rapid influenza antigen (18:39:41) Flu: - EKG (18:41:17) EKG test performed. Attachments uploaded as part of this test result can be found under Documents section. .................... .................... .................... .................... .................... .................... .................... . [employer] Note From Molly Partida: [facility] makes pt contact. He is found sitting upright on the sofa in the living room watching tv, his R arm resting on his head in a relaxed pose. He is not in acute distress. No stridor or sonorous respirations are present. He turns to make eye contact and smile at [facility]. No facial droop or one-sided [...] to evaluation and treatment today. [facility] obtains vital signs and pt [...] cough is hard and productive-sounding. [facility] contacts [facility] and discusses the above. [facility] [place] 500mg azithromycin PO, 2G ceftriaxone IV, [...] s/s. Pt and family thank [facility] for coming. [facility] is clear. Report completed by RANDY Partida [id number]. .................... .................... .................... .................... .................... .................... .................... . [facility] Consulted: Ron Bui .................... .................... .................... .................... .................... .................... .................... . Disposition: Fulfilled Ron Bui MD [address] [facility],[address], [place], [address], [employer] 06/24/2024 08:57:13
--- OUTSIDE RECORDS SUMMARY | 2024-08-24 11:16 | XMS_ITS | Encounter Summary ---
Author Organization [employer] Address 75 [facility] 7 [place] [address] Care Team Providers Care Paper Sealer Name Role Phone NameRolf MD Primary Care Provider [phone] Martine Broussard PharmD Unavailable [phone] Reason for Visit * Reason Onset Date Comments Call Back Request 12/15/2023 Encounter Details Date Type Department Care Team ([facility] st Contact Info) Description 12/15/2023 Telephone [facility] 230 [place], [place] [phone] Name, MD Rolf 230 [place] [address] Call Back Request Social History Tobacco Use [...] the past 12 months, has t he [employer] gas, oil or water company threatened to [...] PM EDT Telemedicine [facility] [address] [place] [address] Karla Lewis RN 12/05/2024 10:45 AM EDT Office Visit [facility] [address] [place] [address] Name, MD Rolf [address] [place] [address] documented as of this encounter Goals Goal [...] documented as of this encounter Care Teams Paper Sealer Relationship Specialty Start Date End Date NameRolf MD [address] [place] [address] PCP - General Family Medicine 10/21/17 Martine Broussard, PharmD [address] [place] [address] Pharmacist Internal Medicine 04/20/23 documented as of this encounter
--- OUTSIDE RECORDS SUMMARY | 2024-08-24 11:16 | XMS_ITS | Encounter Summary ---
Author Organization [employer] Address 75 [facility] 7t [place] [address] Care Team Providers Care English Faculty Member Name Role Phone Name, Rolf PARKS Primary Care Provider [phone] Martine Broussard PharmD Unavailable [phone] Reason for Visit * Reason Comments Med Refill Encounter Details Date Type Department Care Team (Late st Contact Info) Description 01/14/2024 Refill [facility] 230 [place], [place] [phone] Name, MD Rolf 230 [place] [address] Anxiety; Osteoarthritis of knee, unspecified laterality, unspecified [...] Info) Description 10/27/2024 1:30 PM EDT Telemedicine [facility] [address] [place] [address] Karla Lewis RN 12/05/2024 10:45 AM EDT Office Visit [facility] [address] [place] [address] Name, MD Rolf [address] [place] [address] documented as of this encounter Goals Goal Patient Goal Type Associated Problems Recent Progress Patient-Stated? Author Hemoglobin A1c < 7 Result Component 6.6( 11:14 AM EST) No Lance Broussardyssa, PharmD Record your blood sugar as directed [...] documented as of this encounter Care Teams English Faculty Member Relationship Specialty Start Date End Date Name, MD Rolf 230 [place] [address] PCP - General Family Medicine 10/21/17 Martine Broussard PharmD 230 [place] [address] Pharmacist Internal Medicine 04/20/23 documented as of this encounter
--- OUTSIDE RECORDS SUMMARY | 2024-08-24 11:16 | XMS_ITS | Encounter Summary ---
Author Organization [employer] Address 75 [facility] 7t [place] [address] Care Team Providers Care Plate Conditioner Name Role Phone Name, Rolf PARKS Primary Care Provider [phone] Martine Broussard PharmD Unavailable [phone] Reason for Visit * Reason Comments Med Refill Encounter Details Date Type Department Care Team (Late st Contact Info) Description 02/02/2024 Refill [facility] 230 [place], [place] [phone] Name, MD Rolf 230 [place] [address] Iron deficiency anemia, unspecified iron deficiency anemia [...] 10/27/2024 1:30 PM EDT Telemedicine [facility] [address] [place] [address] Karla Lewis RN 12/05/2024 10:45 AM EDT Office Visit [facility] [address] [place] [address] Name, MD Rolf [address] [place] [address] documented as of this encounter Goals Goal [...] documented as of this encounter Care Teams Plate Conditioner Relationship Specialty Start Date End Date Name, MD Rolf 230 [place] [address] PCP - General Family Medicine 10/21/17 Martine Broussard PharmD 230 [place] [address] Pharmacist Internal Medicine 04/20/23 documented as of this encounter
--- OUTSIDE RECORDS SUMMARY | 2024-08-24 11:16 | XMS_ITS | Encounter Summary ---
Author Organization [employer] Address 75 [facility] 7t [place] [address] Care Team Providers Care Rda Name Role Phone Name, Rolf PARKS Primary Care Provider [phone] Martine Broussard PharmD Unavailable [phone] Reason for Visit * Reason Comments Med Refill Encounter Details Date Type Department Care Team ([facility] st Contact Info) Description 11/19/2023 Refill [facility] 230 [place], [place] [phone] Name, MD Rolf 230 [place] [address] Anxiety Social History Tobacco Use Types Packs/Day [...] Info) Description 10/27/2024 1:30 PM EDT Telemedicine [facility] [address] [place] [address] Karla Lewis RN 12/05/2024 10:45 AM EDT Office Visit [facility] [address] [place] [address] Name, MD Rolf [address] [place] [address] documented as of this encounter Goals Goal [...] documented as of this encounter Care Teams Rda Relationship Specialty Start Date End Date NameRolf MD [address] [place] [address] PCP - General Family Medicine 10/21/17 Puia, Martine, PharmD [address] [place] [address] Pharmacist Internal Medicine 12/19/23 documented as of this encounter
--- OUTSIDE RECORDS SUMMARY | 2024-08-24 11:16 | XMS_ITS | Encounter Summary ---
Author Organization [employer] Address [address] [place] [address] 7 [place] [address] Care Team Providers Care Brass Polisher Name Role Phone Name, Rolf PARKS Primary Care Provider [phone] Martine Broussard PharmD Unavailable [phone] Reason for Visit * Reason Comments Med Refill Encounter Details Date Type Department Care Team (Late st Contact Info) Description 12/16/2023 Refill [facility] 230 [place], [place] [phone] Name, MD Rolf 230 [place] [address] Osteoarthritis of knee, unspecified laterality, unspecified osteoarthritis [...] Description 10/27/2024 1:30 PM EDT Telemedicine [facility] [address] [place] [address] Karla Lewis RN 12/05/2024 10:45 AM EDT Office Visit [facility] [address] [place] [address] Name, MD Rolf [address] [place] [address] documented as of this encounter Goals Goal Patient Goal Type Associated Problems Recent Progress Patient-Stated? Author Hemoglobin A1c < 7 Result Component 6.6( 11:14 AM EST) No Martine Broussard, PharmD Record your blood sugar as directed Result Component No PuMartine [place], PharmD documented as of this encounter Visit Diagnoses Diagnosis Osteoarthritis of knee, unspecified laterality, unspecified osteoarthritis type Chronic pain of left knee Anxiety Anxiety state, unspecified documented in this encounter Additional Health Concerns Assessment Noted Time PHQ-9 Depression Total Score: 0 08/05/20 24 10:09 AM EDT documented as of this encounter Care Teams Brass Polisher Relationship Specialty Start Date End Date Name, MD Rolf 230 [place] [address] PCP - General Family Medicine 10/21/17 Martine Broussard PharmD 230 [place] [address] Pharmacist Internal Medicine 04/20/23 documented as of this encounter
--- OUTSIDE RECORDS SUMMARY | 2024-08-24 11:16 | XMS_ITS | Encounter Summary ---
Author Organization [employer] Address [address] [place] [address] 7 [place] [address] Care Team Providers Care Charge Manager Name Role Phone Name, Rolf PARKS Primary Care Provider [phone] Martine Broussard PharmD Unavailable [phone] Reason for Visit * Reason Comments Med Refill Encounter Details Date Type Department Care Team ([facility] st Contact Info) Description 06/13/2024 Refill [facility] 230 [place], [place] [phone] Name, MD Rolf 230 [place] [address] S/P TKR (total knee replacement), left; Anxiety [...] Description 10/27/2024 1:30 PM EDT Telemedicine [facility] [address] [place] [address] Karla Lewis RN 12/05/2024 10:45 AM EDT Office Visit [facility] [address] [place] [address] Name, MD Rolf [address] [place] [address] documented as of this encounter Goals Goal [...] as of this encounter Care Teams Charge Manager Relationship Specialty Start Date End Date Name, MD Rolf 230 [place] [address] PCP - General Family Medicine 10/21/17 Martine Broussard PharmD 230 [place] [address] Pharmacist Internal Medicine 04/20/23 documented as of this encounter
--- OUTSIDE RECORDS SUMMARY | 2024-08-24 11:16 | XMS_ITS | Encounter Summary ---
Author Organization [employer] Address 75 [facility] 7 [place] [address] Care Team Providers Care Speech Instructor Name Role Phone Name, Rolf PARKS Primary Care Provider [phone] Martine Broussard PharmD Unavailable [phone] Reason for Visit * Reason Comments Med Refill Encounter Details Date Type Department Care Team ([facility] st Contact Info) Description 02/02/2024 Refill [facility] 230 [place], [place] [phone] Vivian Barajas, ANP 230 [place] [address] Diabetes mellitus type 2 with neurological manifestations [...] 1:30 PM EDT Telemedicine [facility] [address] [place] [address] Karla Lewis RN 12/05/2024 10:45 AM EDT Office Visit [facility] [address] [place] [address] Name, MD Rolf [address] [place] [address] documented as of this encounter Goals Goal [...] documented as of this encounter Care Teams Speech Instructor Relationship Specialty Start Date End Date Name, MD Rolf 230 [place] [address] PCP - General Family Medicine 10/21/17 Martine Broussard PharmD 230 [place] [address] Pharmacist Internal Medicine 04/20/23 documented as of this encounter
--- OUTSIDE RECORDS SUMMARY | 2024-08-24 11:16 | XMS_ITS | Encounter Summary ---
Author Organization [employer] Address 75 [facility] 7t [place] [address] Care Team Providers Care Rv Technician Name Role Phone Name, Rolf PARKS Primary Care Provider [phone] Martine Broussard PharmD Unavailable [phone] Reason for Visit * Reason Comments Med Refill Encounter Details Date Type Department Care Team (Late st Contact Info) Description 01/28/2024 Refill [facility] 230 [place], [place] [phone] Name, MD Rolf 230 [place] [address] Iron deficiency anemia, unspecified iron deficiency anemia [...] 10/27/2024 1:30 PM EDT Telemedicine [facility] [address] [place] [address] Karla Lewis RN 12/05/2024 10:45 AM EDT Office Visit [facility] [address] [place] [address] Name, MD Rolf [address] [place] [address] documented as of this encounter Goals Goal [...] documented as of this encounter Care Teams Rv Technician Relationship Specialty Start Date End Date Name, MD Rolf 230 [place] [address] PCP - General Family Medicine 10/21/17 Martine Broussard PharmD 230 [place] [address] Pharmacist Internal Medicine 04/20/23 documented as of this encounter
--- OUTSIDE RECORDS SUMMARY | 2024-08-24 11:16 | XMS_ITS | Encounter Summary ---
Author Organization [employer] Address 75 [facility] 7t [place] [address] Care Team Providers Care Home Care Consultant Name Role Phone Name, Rolf PARKS Primary Care Provider [phone] Martine Broussard PharmD Unavailable [phone] Reason for Visit * Reason Comments Med Refill Encounter Details Date Type Department Care Team ([facility] st Contact Info) Description 12/06/2023 Refill [facility] 230 [place], [place] [phone] Name, MD Rolf 230 [place] [address] Anxiety; Chronic pain of left knee Social [...] 1:30 PM EDT Telemedicine [facility] [address] [place] [address]67 Karla Lewis RN 12/05/2024 10:45 AM EDT Office Visit [facility] [address] [place] [address] Rolf Gamble MD [address] [place] [address] documented as of this encounter Goals Goal [...] as of this encounter Care Teams Home Care Consultant Relationship Specialty Start Date End Date Rolf Gamble MD 230 [place] [address] PCP - General Family Medicine 10/21/17 Martine Broussard PharmD 230 [place] [address] Pharmacist Internal Medicine 04/20/23 documented as of this encounter
--- OUTSIDE RECORDS SUMMARY | 2024-08-24 11:16 | XMS_ITS | Encounter Summary ---
Author Organization [employer] Address 75 [facility] 7 [place] [address] Care Team Providers Care Learning And Development Administrator Name Role Phone Name, Rolf PARKS Primary Care Provider [phone] Martine Broussard PharmD Unavailable [phone] Reason for Visit * Reason Comments Med Refill Encounter Details Date Type Department Care Team (Late st Contact Info) Description 01/14/2024 Refill [facility] 230 [place], [place] [phone] Vivian Barajas, ANP 230 [place] [address] Diabetes mellitus type 2 with neurological manifestations [...] Info) Description 10/27/2024 1:30 PM EDT Telemedicine [facility] [address] [place] [address] Karla Lewis RN 12/05/2024 10:45 AM EDT Office Visit [facility] [address] [place] [address] Name, MD Rolf [address] [place] [address] documented as of this encounter Goals Goal [...] documented as of this encounter Care Teams Learning And Development Administrator Relationship Specialty Start Date End Date Name, MD Rolf 230 [place] [address] PCP - General Family Medicine 10/21/17 Martine Broussard PharmD 230 [place] [address] Pharmacist Internal Medicine 04/20/23 documented as of this encounter
--- OUTSIDE RECORDS SUMMARY | 2024-08-24 11:16 | XMS_ITS | Encounter Summary ---
Author Organization [employer] Address [address] [place] [address] 7 [place] [address] Care Team Providers Care Director Of Public Health Name Role Phone Name, Rolf PARKS Primary Care Provider [phone] Martine Broussard PharmD Unavailable [phone] Reason for Visit * Reason Comments Med Refill Encounter Details Date Type Department Care Team ([facility] st Contact Info) Description 06/21/2024 Refill [facility] 230 [place], [place] [phone] Name, MD Rolf 230 [place] [address] S/P TKR (total knee replacement), left; Anxiety [...] 10/27/2024 1:30 PM EDT Telemedicine [facility] [address] [place] [address] Karla Lewis RN 12/05/2024 10:45 AM EDT Office Visit [facility] [address] [place] [address] Name, MD Rolf [address] [place] [address] documented as of this encounter Goals Goal [...] of this encounter Care Teams Director Of Public Health Relationship Specialty Start Date End Date Name, MD Rolf 230 [place] [address] PCP - General Family Medicine 10/21/17 Martine Broussard PharmD 230 [place] [address] Pharmacist Internal Medicine 04/20/23 documented as of this encounter
--- OUTSIDE RECORDS SUMMARY | 2024-08-24 11:16 | XMS_ITS | Encounter Summary ---
Author Organization [employer] Address 75 [facility] 7t [place] [address] Care Team Providers Care Director Cloud Transformation Name Role Phone Name, Rolf PARKS Primary Care Provider [phone] Martine Broussard PharmD Unavailable [phone] Reason for Visit * Reason Comments Med Refill Encounter Details Date Type Department Care Team (Late st Contact Info) Description 12/08/[address] [facility] 230 [place], [place] [phone] Name, MD Rolf 230 [place] [address] Anxiety; Chronic pain of left knee Social [...] Description 10/27/2024 1:[address] [facility] [address] [place] [address] Karla Lewis RN 12/05/2024 10:45 AM EDT Office Visit [facility] [address] [place] [address] Rolf Gamble MD [address] [place] [address] 6[address] documented as of this encounter Goals Goal [...] as of this encounter Care Teams Director Cloud Transformation Relationship Specialty Start Date End Date Rolf Gamble MD 230 [place] [address] PCP - General Family Medicine 10/21/17 Martine Broussard PharmD 230 [place] [address] Pharmacist Internal Medicine 04/20/23 documented as of this encounter
--- OUTSIDE RECORDS SUMMARY | 2024-08-24 11:16 | XMS_ITS | Encounter Summary ---
Author Organization [employer] Address [address] [place] [address] 7 [place] [address] Care Team Providers Care Scissors Grinder Name Role Phone Name, Rolf PARKS Primary Care Provider [phone] Martine Broussard PharmD Unavailable [phone] Reason for Visit * Reason Comments Med Refill Encounter Details Date Type Department Care Team (Late st Contact Info) Description 07/05/2024 Refill [facility] 230 [place], [place] [phone] Name, MD Rolf 230 [place] [address] S/P TKR (total knee replacement), left Social [...] Info) Description 10/27/2024 1:30 PM EDT Telemedicine [facility]INE [address] [place] [address] Karla Lewis RN 12/05/2024 10:45 AM EDT Office Visit [facility] [address] [place] [address] Name, MD Rolf [address] [place] [address] documented as of this encounter Goals Goal [...] documented as of this encounter Care Teams Scissors Grinder Relationship Specialty Start Date End Date Name, MD Rolf 230 [place] [address] PCP - General Family Medicine 10/21/17 Martine Broussard PharmD 230 [place] [address] Pharmacist Internal Medicine 04/20/23 documented as of this encounter
--- OUTSIDE RECORDS SUMMARY | 2024-08-24 11:16 | XMS_ITS | Encounter Summary ---
Author Organization [employer] Address 75 [facility] 7t [place] [address] Care Team Providers Care Sign Designer Name Role Phone Name, Rolf PARKS Primary Care Provider [phone] Martine Broussard PharmD Unavailable [phone] Reason for Visit * Reason Comments Med Refill Encounter Details Date Type Department Care Team (Late st Contact Info) Description 02/01/2024 Refill [facility] 230 [place], [place] [phone] Name, MD Rolf 230 [place] [address] Osteoarthritis of knee, unspecified laterality, unspecified osteoarthritis [...] Info) Description 10/27/2024 1:30 PM EDT Telemedicine [facility]INE [address] [place] [address] Karla Lewis RN 12/05/2024 10:45 AM EDT Office Visit [facility] [address] [place] [address] Name, MD Rolf [address] [place] [address] documented as of this encounter Goals Goal [...] documented as of this encounter Care Teams Sign Designer Relationship Specialty Start Date End Date Name, MD Rolf 230 [place] [address] PCP - General Family Medicine 10/21/17 Martine Broussard PharmD 230 [place] [address] Pharmacist Internal Medicine 04/20/23 documented as of this encounter
--- OUTSIDE RECORDS SUMMARY | 2024-08-24 11:16 | XMS_ITS | Encounter Summary ---
Author Organization [employer] Address 75 [facility] 7 [place] [address] Care Team Providers Care Mud Grinder Name Role Phone Name, Rolf PARKS Primary Care Provider [phone] Martine Broussard PharmD Unavailable [phone] Reason for Visit * Reason Comments Med Refill Encounter Details Date Type Department Care Team (Late st Contact Info) Description 12/24/2023 Refill [facility]INE 230 [place], [place] [phone] Vivian Barajas, ANP 230 [place] [address] Diabetes mellitus type 2 with neurological manifestations [...] Info) Description 10/27/2024 1:30 PM EDT Telemedicine [facility] [address] [place] [address] Karla Lewis RN 12/05/2024 10:45 AM EDT Office Visit [facility] [address] [place] [place] [address] Rolf Gamble MD [address] [place] [address] documented as of this encounter Goals Goal [...] documented as of this encounter Care Teams Mud Grinder Relationship Specialty Start Date End Date Rolf Gamble MD 230 [place] [address] PCP - General Family Medicine 10/21/17 Martine Broussard PharmD 230 [place] [address] Pharmacist Internal Medicine 04/20/23 documented as of this encounter
--- OUTSIDE RECORDS SUMMARY | 2024-08-24 11:16 | XMS_ITS | Encounter Summary ---
Author Organization [employer] Address 75 [facility] 7 [place] [address] Care Team Providers Care Tailing Machine Operator Name Role Phone Name, Rolf PARKS Primary Care Provider [phone] Puia, Martine PharmD Unavailable Puia, Martine PharmD Unavailable Reason for Visit * Reason Onset Date Comments Med Refill 03/23/2023 Encounter Details Date Type Department Care Team ([facility] st Contact Info) Description 03/23/2023 Telephone [facility] MED[facility]INE 230 [place], [place] [phone] Name, MD Rolf 230 [place], [place] [phone] Med Refill Social History Tobacco Use Types [...] 2:18 PM EST Medication was sent to [facility] on 12/07/22 with 11 refills. * Telephone Encounter - Nela Whalen - 03/23/2023 2:15 PM EST Tc from pt requesting med refill on; dulaglutide (Trulicity) 3 MG/0.5ML solution pen-injector [facility] [id number] [place] [address] SHAUN MCDONOUGH [facility] documented in this encounter Plan of Treatment Upcoming Encounters Date Type Department Care Team (Late st Contact Info) Description 10/27/2024 1:30 PM EDT Telemedicine [facility] MEDICINE [address] [place] [address] Karla Lewis RN 12/05/2024 10:45 AM EDT Office Visit [facility] MED[facility]INE [address] [place] [address] Name, MD Rolf [address] [place] [address] documented as of this encounter Visit Diagnoses Not on filedocumented in this encounter Additional Health Concerns Assessment Noted Time PHQ-9 Depression Total Score: 14 023 1:07 PM EDT documented as of this encounter Care Teams Tailing Machine Operator Relationship Specialty Start Date End Date Name, MD Rolf [address] [place] [address] PCP - General Family Medicine 10/21/17 Martine Broussard PharmD [address] [place] [address] Pharmacist Internal Medicine 04/20/23 Martine Broussard PharmD [address] [place] [address] Pharmacist Internal Medicine 04/20/23 08/11/23 documented as of this encounter
[2024-08-24 11:29] LABS: Basophils Percent Auto 0.6 % (0-2); Eosinophils Absolute Auto 0.2 X10*3/uL (0.0-0.4); Eosinophils Percent Auto 2.7 % (0-4); Hematocrit 43.2 % (42.0-52.0); Imm Gran Abs Auto 0.02 X10*3/uL (0.00-0.03); Imm Gran Pct Auto 0.3 % (0.0-0.4); Lymphocytes Absolute Auto 1.5 X10*3/uL (1.2-4.9); Lymphocytes Percent Auto 23.2 % (20-40); Mean Corpuscular HGB Conc 30.1 g/dl (31.0-36.0); Mean Corpuscular Hemoglobin 26.3 pg (27.0-33.0); Mean Corpuscular Volume 87.3 fL (80.0-98.0); Mean Platelet Volume 10.7 fL (9.4-12.4); Monocytes Absolute Auto 0.6 X10*3/uL (0.1-1.2); Monocytes Percent Auto 9.3 % (2-11); Neutrophils Percent Auto 63.9 % (45-73); Platelet Count 231 X10*3/uL (160-400); Red Blood Count 4.95 X10*6/uL (4.60-5.80); Red Cell Distribution Width 14.7 % (11.0-16.0); White Blood Count 6.3 X10*3/uL (4.8-10.8)
[2024-08-24 12:07] LABS: Alanine Aminotransferase 34 U/L (0-40); Albumin Level 4.4 g/dL (3.5-5.0); Alkaline Phosphatase 88 U/L (39-117); Anion Gap 9 (12-20); Aspartate Amino Transferase 30 U/L (5-37); Bilirubin Total 0.3 mg/dL (0.0-1.0); Blood Urea Nitrogen 11 mg/dL (9-16); Calcium 9.5 mg/dL (8.4-10.2); Carbon Dioxide 35 mmol/L (22-29); Chloride 103 mmol/L (96-108); Cholesterol 145 mg/dL (<200); Estimated Glomerular Filt Rate > 60; Glucose Random 184 mg/dL (60-115); HDL Cholesterol 40 mg/dL (>40); LDL Cholesterol Calculated 85 mg/dL (<100); Potassium 5.2 mmol/L (3.3-5.1); Sodium 142 mmol/L (135-145); Triglycerides 101 mg/dL (<150)
[2024-08-24 12:12] LABS: TSH reflex Free T4 2.38 uIU/mL (0.32-4.0)
== END 2024-08-24 09:56 | disposition home or self-care (01) ==
LOC: HO.HHCL 09:55
PROVIDERS: Visit Provider Internal Medicine Geriatric Medicine
DX: E11.49 Type 2 diabetes mellitus with other diabetic neurological complication (principal); M25.561 Pain in right knee; M25.562 Pain in left knee; G89.29 Other chronic pain; I50.22 Chronic systolic (congestive) heart failure; R00.0 Tachycardia, unspecified; Z79.899 Other long term (current) drug therapy
CPT/HCPCS: 36415; 80053; 80061; 84443; 85025

== ENCOUNTER 2024-12-05 11:07 | Outpatient (REF) | payer OTHER, SELFPAY ==
--- OUTSIDE RECORDS SUMMARY | 2024-12-05 11:54 | XMS_ITS | Clinical Summary ---
Author Organization [employer] ity Address [address] [place] [address] Care Team Providers Care Benefits Specialist Recruiter Name Role Phone Poppy Hernandez MD Primary [...] Panel) 04/05/2022 Colorectal Cancer Screening: Colonoscopy 04/05/2022 Falls Risk Assessment 04/05/2022 Hepatitis C Screening 04/05/2022 Social Influencers of Health Screening 04/05/2022 Diabetes: Annual Urine Albumin-Creatinine Ratio (uACR) 04/16/2022 Diabetes: Blood Sugar Contro l Test (HGBA1C) 04/16/2022 Hypertension/CHF/CAD Annual BMP Blood Test 04/16/2022 COVID-19 Vaccine ( - 2023-2 5 season) 2024 Depression Screening 05/03/2024 Influenza Vaccine (#1) 2025 03/22/2012 RSV Immunization Adult Patie nts (1 - [...] age to complete this topic Care Teams Benefits Specialist Recruiter Relationship Specialty Start Date End Date Poppy Hernandez MD [address] [place] [address] PCP - General Internal Medicine 06/03/17
[2024-12-05 13:56] LABS: Anion Gap 16 (12-20); Blood Urea Nitrogen 16 mg/dL (9-16); Calcium 9.7 mg/dL (8.4-10.2); Carbon Dioxide 30 mmol/L (22-29); Chloride 100 mmol/L (96-108); Estimated Glomerular Filt Rate > 60; Potassium 5.8 mmol/L (3.3-5.1); Sodium 140 mmol/L (135-145)
[2024-12-05 14:44] LABS: Microalbum/Creatinine Ratio Ur 25.9 ug/mg cr (<30)
== END 2024-12-05 11:08 | disposition home or self-care (01) ==
LOC: HO.HHCL 11:07
PROVIDERS: PCP Internal Medicine Geriatric Medicine; Visit Provider Internal Medicine Geriatric Medicine
DX: E11.9 Type 2 diabetes mellitus without complications (principal); I50.22 Chronic systolic (congestive) heart failure; F43.21 Adjustment disorder with depressed mood
CPT/HCPCS: 36415; 80048; 82043; 82570

== ENCOUNTER 2024-12-06 10:57 | Outpatient (REF) | payer OTHER, SELFPAY ==
--- OUTSIDE RECORDS SUMMARY | 2024-12-06 11:39 | XMS_ITS | Clinical Summary ---
Author Organization [email or web address] ity Address [address] [place] [address] Care Team Providers Care Caser [employer]oe [employer] Name Role Phone Poppy Hernandez MD Primary [...] age to complete this topic Care Teams Caser [employer] Relationship Specialty Start Date End Date Poppy Hernandez MD [address] [place] [address] PCP - General Internal Medicine 06/03/17
[2024-12-06 13:52] LABS: Anion Gap 16 (12-20); Blood Urea Nitrogen 19 mg/dL (9-16); Calcium 10.0 mg/dL (8.4-10.2); Carbon Dioxide 30 mmol/L (22-29); Chloride 102 mmol/L (96-108); Estimated Glomerular Filt Rate > 60; Potassium 5.4 mmol/L (3.3-5.1); Sodium 143 mmol/L (135-145)
== END 2024-12-06 10:58 | disposition home or self-care (01) ==
LOC: HO.HHCL 10:57
PROVIDERS: PCP Internal Medicine Geriatric Medicine; Visit Provider Internal Medicine Geriatric Medicine
DX: E87.5 Hyperkalemia (principal)
CPT/HCPCS: 36415; 80048

== ENCOUNTER 2024-12-13 10:46 | Outpatient (AMB) | payer OTHER, SELFPAY ==
[2024-12-13 10:49] VITALS: BP 122/62; PULSE 107; BMI 35.0
--- NOTE | 2024-12-13 10:49 | MHC.OFFVIS ---
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 College Sports Coach Required: Yes College Sports Coach Services: College Sports Coach Offered & Declined Accompanied by: Grand Child Allergies No Known Allergies (No Known Allergies*) Allergy (Verified 07/20/24 10:19) Medication List - Last Reviewed 12/13/24 by Ranjana iFerro albuterol sulfate 90 mcg/actuation (Proventil HFA) 2 puffs inhalation Q4-6H PRN gabapentin 300 mg PO losartan 25 mg PO DAILY metoprolol succinate ER 25 mg PO DAILY mirtazapine 15 mg PO BEDTIME trazodone 50 mg PO BEDTIME HPI Comments Details: The patient is a 68-year-old male presenting with a referral for suspected heart failure. The patient has no history of myocardial infarction, coronary stents, or angina. He denies experiencing dyspnea or chest pain during exertion, such as climbing stairs. The patient has a history of diabetes mellitus and is currently managed with metformin. Per pulmonary note, he has got COPD, interstitial lung disease and obstructive sleep apnea. [facility] Medical History (Updated 12/13/24 @ 11:18 by Alex Hines MD) Combined pulmonary fibrosis and emphysema (CPFE) ILD (interstitial lung disease) COPD (chronic obstructive pulmonary disease) Surgical History (Updated 12/13/24 @ 11:03 by Ranjana Fierro) H/O knee surgery Family History (Updated 12/13/24 @ 11:04 by Ranjana Fierro) Mother No problems noted. Father No problems noted. Social History (Updated 12/13/24 @ 11:04 by Ranjana Fierro) Alcohol intake: never Patient Tobacco Use Status: Former Tobacco user Years Smoked: 10 Years Ago Review of Systems Const Denies weakness ENT Denies dizziness Card Denies chest pain, Denies chest pain with activity, Denies syncope, Denies rapid heart rate, Denies pedal edema, Denies edema, Denies leg edema, Denies lightheadedness, Denies palpitations, Denies dyspnea, Denies dyspnea on exertion and Denies orthopnea Resp Denies cough, Denies dyspnea and Denies dyspnea on exertion GI Denies hematochezia and Denies change in stool character Musc Denies abnormal gait, Denies muscle cramps, Denies muscle weakness, Denies numbness, Denies radiating pain into limb and Denies tingling Neuro Denies abnormal gait, Denies dizziness, Denies syncope, Denies numbness, Denies tingling and Denies weakness Endo Denies palpitations Physical Exam Vital Signs: Last Vital Signs Pulse 107 H 12/13/24 10:49 BP 122/62 12/13/24 10:49 BMI result Body Mass Index 35.0 Const General: comfortable and no acute distress Orientation/consciousness: patient oriented x3 HEENT Other: Unremarkable Head: Yes normal to inspection Neck Neck: Yes normal visual inspection Chest Chest palpation & inspection: normal inspection of the chest Resp Auscultation: clear to auscultation bilaterally Cardio Palpation: normal PMI Heart sounds: S1 normal heart sound present, S2 normal heart sound present, no gallops, no murmurs and no rubs GI Palpation (GI): Soft to palpation Back/Spine/Pelvis Other: unremarkable Skin General skin exam: no rashes or lesions noted Neuro General: patient oriented x3 Extrem General: Yes normal to inspection Psych Mental Status: mental status grossly normal Office Procedures EKG Details: EKG shows sinus tachycardia at 107/Min; voltage criteria for LVH; nonspecific ST-T changes; [place] [id number], Complete Assessment & Plan Assessment & Plan (1) Atherosclerotic cardiovascular disease: Code(s): I25.10 - Atherosclerotic heart disease of [place] coronary artery without angina pectoris Category: Medical (2) Cardiomyopathy: Code(s): I42.9 - Cardiomyopathy, unspecified Category: Medical Plan In a chest CT scan from [facility], description of qhvxnsoy-oh-feskyn multifocal coronary artery calcification. Moderate aortic valve calcification. No aortic aneurysm. Enlarged pulmonary arteries from possible pulmonary hypertension. Emphysema and smoking related interstitial lung disease. Echocardiogram with LVEF of 40-45%. Mild aortic valvular mitral valve calcification. Overall, evidence of coronary calcification on CT scan; mild cardiomyopathy; but no overt anginal type symptoms We will proceed with an exercise stress perfusion imaging study for further evaluation. For medications, ideally, should be on Atorvastatin but not showing up in the recent refilled meds in his phone amparo. However, it is still in the medication list as Atorvastatin 40 mg daily. Hence not clear if he is actually taking it or not. He is not aware of the names of medications. We will follow up after the stress test and plan further care. Discussed with grandson who acted as roof bolter operator. Orders: Orders CA stress test Today I25.10 - Atherosclerotic heart disease of [place] coronary artery without angina pectoris, I42.9 - Cardiomyopathy, unspecified, R07.2 - Precordial pain NM cardiolite stress test Today I25.10 - Atherosclerotic heart disease of [place] coronary artery without angina pectoris, I42.9 - Cardiomyopathy, unspecified, R07.2 - Precordial pain Coding Level of Care Code New Pt Level 4 (01422) Complex EM visit Add On G2211 Diagnoses Atherosclerotic cardiovascular disease I25.10 Cardiomyopathy I42.9 CPT Codes EKG - CPT: [id number], Complete ([id number])
--- OUTSIDE RECORDS SUMMARY | 2024-12-13 11:39 | XMS_ITS | Encounter Summary ---
Author Organization [employer] Address [address] [place] [address] Care Team Providers Care Mural Painter Name Role Phone Name, Rolf PARKS Primary Care Provider [phone] Martine Broussard PharmD Unavailable [phone] Reason for Visit * Reason Comments Med Refill Encounter Details Date Type Department Care Team (Late st Contact Info) Description 02/11/[address] [facility] [address] [place], [place] [phone] Name, MD Rolf [address] [place] [address] Anxiety; Chronic pain of left knee; Osteoarthritis [...] Care Team (Late st Contact Info) Description 01/26/2025 10:[address] [facility] [address] [place] [address] Karla Lewis RN 03/02/2025 10:00 AM EDT Office Visit [facility] [address] [place] [address] Name, MD Rolf [address] [place] [address] documented as of this encounter Goals Goal Patient Goal Type Associated Problems Recent Progress Patient-Stated? Author Hemoglobin A1c < 7 Result Component 8.7( 11:55 AM EDT) No PuLance camarilloyssa, PharmD Record your blood [...] documented as of this encounter Care Teams Mural Painter Relationship Specialty Start Date End Date Name, MD Rolf [address] [place] [address] PCP - General Family Medicine 10/21/17 Martine Broussard PharmD [address] [place] [address] Pharmacist Internal Medicine 04/20/23 documented as of this encounter
--- OUTSIDE RECORDS SUMMARY | 2024-12-13 11:39 | XMS_ITS | Clinical Summary ---
Author Organization [employer] Address [address] [place] [address] Care Team Providers Care Teaching Music Lessons Name Role Phone Poppy Hernandez MD Primary [...] age to complete this topic Care Teams Teaching Music Lessons Relationship Specialty Start Date End Date Poppy Hernandez MD [address] [place] [address] PCP - General Internal Medicine 06/03/17
== END 2024-12-13 11:17 | disposition home or self-care (01) ==
LOC: HO.HCS 10:47
PROVIDERS: PCP Internal Medicine Geriatric Medicine; Visit Provider Internal Medicine
DX: I25.10 Atherosclerotic heart disease of native coronary artery without angina pectoris (principal); I42.9 Cardiomyopathy, unspecified; R00.0 Tachycardia, unspecified
CPT/HCPCS: 93010; 99214; G2211

== ENCOUNTER → 2024-12-13 10:46 | Outpatient (BNVA) | payer OTHER, SELFPAY | PROVIDERS: PCP Internal Medicine Geriatric Medicine; Visit Provider Internal Medicine | DX: I25.10 Atherosclerotic heart disease of native coronary artery without angina pectoris (principal); R07.2 Precordial pain; I42.9 Cardiomyopathy, unspecified | CPT/HCPCS: 93005; 99212 ==

== ENCOUNTER 2024-12-15 10:22 | Outpatient (REF) | payer OTHER, SELFPAY ==
--- OUTSIDE RECORDS SUMMARY | 2024-12-15 10:31 | XMS_ITS | Encounter Summary ---
Author Organization [employer] Address [address] [place] [address] Care Team Providers Care Candy Spreader Name Role Phone Name, Rolf PARKS Primary Care Provider [phone] Martine Broussard PharmD Unavailable [phone] Reason for Visit * Reason Comments Med Refill Encounter Details Date Type Department Care Team (Late st Contact Info) Description 02/11/2024 Refill [facility] [address] [place], [place] [phone] Name, MD Rolf [address] [place] [address] Anxiety; Chronic pain of left knee; Osteoarthritis [...] Info) Description 01/26/2025 10:30 AM EDT Telemedicine [facility] [address] [place] [address] Karla Lewis RN 03/02/2025 10:00 AM EDT Office Visit [facility] [address] [place] [address] Name, MD Rolf [address] [place] [address] documented as of this encounter Goals Goal [...] documented as of this encounter Care Teams Candy Spreader Relationship Specialty Start Date End Date Name, MD Rolf [address] [place] [address] PCP - General Family Medicine 10/21/17 Mratine Broussard PharmD [address] [place] [address] Pharmacist Internal Medicine 04/20/23 documented as of this encounter
[2024-12-15 11:35] LABS: Anion Gap 15 (12-20); Blood Urea Nitrogen 19 mg/dL (9-16); Calcium 10.0 mg/dL (8.4-10.2); Carbon Dioxide 28 mmol/L (22-29); Chloride 104 mmol/L (96-108); Estimated Glomerular Filt Rate > 60; Potassium 5.4 mmol/L (3.3-5.1); Sodium 142 mmol/L (135-145)
== END 2024-12-15 10:23 | disposition home or self-care (01) ==
LOC: HO.HHCL 10:22
PROVIDERS: PCP Internal Medicine Geriatric Medicine; Visit Provider Internal Medicine Geriatric Medicine
DX: E87.5 Hyperkalemia (principal)
CPT/HCPCS: 36415; 80048

== ENCOUNTER 2025-01-26 11:38 | Outpatient (REF) | payer OTHER, SELFPAY ==
--- OUTSIDE RECORDS SUMMARY | 2025-01-26 10:30 | XMS_ITS | Encounter Summary ---
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 I have riya taylor 11/29/[address] you li ve. Do you have problems with any of the following? None of the above 11/29/2024 Food Insecurity Answer Date Recorded Within the past 12 months, y ou worried that your food would run out before you got money to buy more: Never True 11/29/2024 Within the past 12 months,th e food you bought just didn't last and you didn't have enough money to get more: Never True Transportation Answer Date Recorded In the past 12 months, has l ack of transportation kept you from medical appts, meetings, work or from getting things needed for daily living? No 11/29/2024 Utilities Answer Date Recorded In the past 12 months, has t he electric, gas, oil or water company threatened to shut off services in your home? No 11/29/2024 Depression Answer Date Recorded Patient Health Questionnaire-2 Score 0 11/29/2024 Internet Access Answer Date Recorded Internet Access Q1 Yes 11/29/2024 Internet Access Q2 Not on file 11/29/2024 Sex and Gender Information Value Date Recorded Sex Assigned at Male 03/02/2022 10:19 AM EDT Legal Sex Male 10:19 AM EDT Gender Identity Male 05/22/2022 9:34 AM EST Sexual Orientation Don't know 05/22/2022 9: 34 AM EST documented as of this encounter Progress Notes * Karla Lewis RN - 01/26/2025 10:30 AM EDT SUBJECTIVE: Hong Antoine is a 69 y.o. 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 Hong Antoine does report adherence to Clonazepam (Klonopin) 2 mg, take 1 tablet every 24 hours PRN, last refilled 01/09/2025. The patient last took Percocet on: 01/26/2025 Medication is: 5% % effective at alleviating pain. 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 Pill count completed for Clonazepam (Klonopin), patient reports count today is 12 , anticipated count should be 11, this is as expected. 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 Long-term current use of opiate analgesic PLAN: Information on pain group given: Previously discussed Information on acupuncture given: Previously discussed Narcan education provided: Previously discussed Narcan prescription: active Advised patient he could apply ice to his knee and could come to [facility] if he felt he needed to have it evaluated. Pt stated he was using ice currently and declines WIC at this time. Hong Antoine will continue taking medication as prescribed and follow up at the next Tele CSTvisit or sooner if needed. Hong Antoine has verbalized understanding of care plan. Future Appointments Date Time Provider Department Center 01/26/2025 10:30 AM Karla Lewis RN MEDICINE [facility] 03/02/2025 10:00 AM Rolf Gamble MD [facility] 04/20/2025 11:00 AM Karla Lewis RN [facility] Karla Lewis RN [1] Current Outpatient Medications: clonazePAM (KlonoPIN) 2 MG tablet, TAKE ONE TABLET BY MOUTH EVERY EVENING AT BEDTIME NEEDED (VIAL) Do not start before January 08, 2025., Disp: 28 tablet, Rfl: 0 oxyCODONE-acetaminophen (Percocet) 5-325 MG tablet, TAKE 1 TABLET BY MOUTH EVERY 12 (TWELVE) HOURS IF NEEDED FOR SEVERE PAIN (VIAL), Disp: 56 tablet, Rfl: 0 Acetaminophen Extra Strength 500 MG tablet, TAKE ONE TABLET BY MOUTH EVERY 8 HOURS NEEDED FOR PAIN (VIAL), Disp: 90 tablet, Rfl: 3 albuterol (2.5 MG/3ML) 0.083% nebulizer solution, Take 3 mL (2.5 mg) by nebulization every 6 (six) hours if needed for wheezing., Disp: 75 mL, Rfl: 11 albuterol 108 (90 Base) MCG/ACT inhaler, inhale 2 puff by inhalation route every 4 - 6 hours as needed, Disp: 18 g, Rfl: 11 atorvastatin (Lipitor) 40 MG tablet, Take 1 tablet (40 mg) by mouth Once per day., Disp: 30 tablet,Rfl: 11 Blood Glucose Monitoring Suppl (ONE TOUCH ULTRA 2) w/Device kit, Use once a day, Disp: 1 kit, Rfl: 0 Diclofenac Sodium 1 % gel, APPLY 4 GRAMS TOPICALLY TO THE AFFECTED KNEE TWICE A DAY (BULK), Disp: 100 g, Rfl: 3 Dulaglutide 4.5 MG/0.5ML solution auto-injector, Inject 0.5 mL (4.5 mg) under the skin 1 (one) timeper week. Inject 4.5 mg under the skin 1 (one) time per week., Disp: 2 mL, Rfl: 11 empagliflozin (Jardiance) 25 MG, Take 1 tablet (25 mg) by mouth Once per day., Disp: 30 tablet, Rfl: 11 escitalopram (Lexapro) 10 MG tablet, TAKE 1 TABLET(10 MG) BY MOUTH IN THE MORNING, Disp: 30 tablet,Rfl: 2 ferrous sulfate (FeroSul) 325 (65 Fe) MG tablet, TAKE ONE TABLET BY MOUTH EVERY OTHER DAY (VIAL), Disp: 15 tablet, Rfl: 1 Fluticasone-Salmeterol 500-50 MCG/ACT aerosol powder , INHALE ONE PUFF BY MOUTH TWICE A DAY (BULK),Disp: 60 each, Rfl: 5 gabapentin (Neurontin) 300 MG capsule, TAKE 1 CAPSULE BY MOUTH TWICE A DAY, Disp: 60 capsule, Rfl: 0 glucose blood (OneTouch Ultra) test strip, USE ONCE DAILY (BULK), Disp: 50 strip, Rfl: 11 ibuprofen 600 MG tablet, TAKE ONE TABLET BY MOUTH IF NEEDED IN THE MORNING, AT NOON, AND AT BEDTIMEFOR MILD PAIN FOR UP TO 10 DAYS (VIAL), Disp: 30 tablet, Rfl: 0 Lancets (OneTouch Delica Plus [id number]) misc, USE ONCE DAILY (BULK), Disp: 100 each, Rfl: 11 losartan (Cozaar) 25 MG tablet, Take 1 tablet (25 mg) by mouth Once per day., Disp: 90 tablet, Rfl:3 metFORMIN (Glucophage) 1000 MG tablet, TAKE 1 TABLET BY MOUTH TWICE A DAY WITH MORNING AND EVENING MEALS, Disp: 60 tablet, Rfl: 11 metoprolol succinate XL (Toprol XL) 25 MG 24 hr tablet, Take 1 tablet (25 mg) by mouth Once per day. Do not crush or chew., Disp: 30 tablet, Rfl: 11 omeprazole (PriLOSEC) [address] capsule, take 1 capsule by oral route every day 30 minutes to 1 hourbefore a meal, Disp: 30 capsule, Rfl: 11 sodium zirconium cyclosilicate (Lokelma) 5 g packet, Take 5 g by mouth Once per day., Disp: 75 g, Rfl: 1 Spacer/Aero-Holding Chambers device, Use daily with MDI, Disp: 1 each, Rfl: 0 traZODone (Desyrel) 50 MG tablet, TAKE ONE TABLET BY MOUTH EVERY EVENING AT BEDTIME (VIAL), Disp: 30 tablet, Rfl: 3 Umeclidinium Climax (Incruse Ellipta) 62.5 MCG/ACT aerosol powder , Inhale 1 Act (62.5 mcg) Once per day. Inhale 1 each in the morning., Disp: 30 each, Rfl: 11 documented in this encounter Plan of Treatment Upcoming Encounters Date Type Department Care Team (Late st Contact Info) Description 03/02/2025 10:00 AM EDT Office Visit [address] [address] Name, MD Rolf [address] [place] [address] 04/20/2025 11:00 AM EST Telemedicine [address] [address] Karla Lewis, RN documented as of this encounter Goals Goal Patient Goal Type Associated Problems Recent Progress Patient-Stated? Author Hemoglobin A1c < 7 Result Component 8.7( 11:55 AM EDT) No Martine Broussard, PharmD Record your blood sugar as directed Result Component No Martine Broussard PharmD documented as of this encounter Visit Diagnoses Diagnosis Long-term current use of opiate analgesic Encounter for long-term (current) use of other medications documented in this encounter Additional Health Concerns Assessment Noted Time PHQ-9 Depression Total Score: 4 11/30/19 25 11:56 AM EDT documented as of this encounter Care Teams Mail Clerks Supervisor Relationship Specialty Start Date End Date Name, MD Rolf [address] [place] [address] PCP - General Family Medicine 10/21/17 Martine Broussard PharmD [address] [place] [address] Pharmacist Internal Medicine 04/20/23 documented as of this encounter
--- OUTSIDE RECORDS SUMMARY | 2025-01-26 13:32 | XMS_ITS | Encounter Summary ---
Author Organization [employer] Address [address] [place] [address] Care Team Providers Care Coding Specialist Name Role Phone Name, Rolf PARKS Primary Care Provider [phone] Martine Broussard PharmD Unavailable Encounter Details Date Type Department Care Team ([facility] st Contact Info) Description 02/22/2024 Telephone [facility]ICINE [address] [place], [place] [phone] Name, MD Rolf [address] [place] [address] Social History Tobacco Use Types Packs/Day Years [...] the past 12 months, has t he Yoics, gas, oil or water company threatened to [...] Description 03/02/2025 10:00 AM EDT Office Visit [address] [address] Name, MD Rolf [address] [place] [address] 04/20/2025 11:00 AM EST Telemedicine [address] [address] Karla Lewis, DARYN documented as of this encounter Goals Goal Patient Goal Type Associated Problems Recent Progress Patient-Stated? Author Hemoglobin A1c < 7 Result Component 8.7( 11:55 AM EDT) No PuiaLanceMartine, PharmD Record your blood sugar as directed Result Component No PuiaLanceMartine, PharmD documented as of this encounter Visit Diagnoses Not on filedocumented in this encounter Additional Health Concerns Assessment Noted Time PHQ-9 Depression Total Score: 0 12/06/19 24 10:09 AM EDT documented as of this encounter Care Teams Coding Specialist Relationship Specialty Start Date End Date Name, MD Rolf [address] [place] [address] PCP - General Family Medicine 10/21/17 Martine Broussard, GarrettD [address] [place] [address] Pharmacist Internal Medicine 04/20/23 documented as of this encounter
--- OUTSIDE RECORDS SUMMARY | 2025-01-26 13:32 | XMS_ITS | Encounter Summary ---
Author Organization [employer] Address [address] [place] [address] Care Team Providers Care Parts Clerk Plant Maintenance Name Role Phone Name, Rolf PARKS Primary Care Provider Martine Broussard PharmD Unavailable [phone] Reason for Visit * Reason Comments Med Refill Encounter Details Date Type Department Care Team ([facility] st Contact Info) Description 02/16/2024 Refill [facility] [address] [place], [place] [phone] Name, MD Rolf [address] [place] [address] COPD exacerbation (CMS/HCC); Anxiety Social History Tobacco [...] Description 03/02/2025 10:00 AM EDT Office Visit [address] [address] Name, MD Rolf [address] [place] [address] 04/20/2025 11:00 AM EST Telemedicine [facility] [address] [place] [address] Karla Lewis, DARYN documented as of this encounter Goals Goal Patient Goal Type Associated Problems Recent Progress Patient-Stated? Author Hemoglobin A1c < 7 Result Component 8.7( 11:55 AM EDT) No Puia, Martine, PharmD Record your blood sugar as directed Result Component No Puia, Martine, PharmD documented as of this encounter Visit Diagnoses Diagnosis COPD exacerbation ([facility]) Obstructive chronic bronchitis with exacerbation Anxiety Anxiety state, unspecified documented in this encounter Additional Health Concerns Assessment Noted Time PHQ-9 Depression Total Score: 0 12/06/19 24 10:09 AM EDT documented as of this encounter Care Teams Parts Clerk Plant Maintenance Relationship Specialty Start Date End Date Name, MD Rolf [address] [place] [address] PCP - General Family Medicine 10/21/17 Martine Broussard PharmD [address] [place] [address] Pharmacist Internal Medicine 04/20/23 documented as of this encounter
--- OUTSIDE RECORDS SUMMARY | 2025-01-26 13:32 | XMS_ITS | Encounter Summary ---
Author Organization [email or web address] Address [address] [place] [address] Care Team Providers Care Internet Developer Name Role Phone Name, Rolf PARKS Primary Care Provider [phone] Martine Broussard PharmD Unavailable [phone] Reason for Visit * Reason Comments Med Refill Encounter Details Date Type Department Care Team (Late st Contact Info) Description 02/18/2024 Refill [facility] MEDICINE 230 [place], [place] [phone] Name, MD Rolf 230 [place] [address] Chronic pain of left knee; COPD exacerbation [...] Description 03/02/2025 10:00 AM EDT Office Visit [address] [address] Name, MD Rolf [address] [place] [address] 04/20/2025 11:00 AM EST Telemedicine [facility] MEDICINE [address] [place] [address] Karla Lewis, DARYN documented as of this encounter Goals Goal Patient Goal Type Associated Problems Recent Progress Patient-Stated? Author Hemoglobin A1c < 7 Result Component 8.7( 11:55 AM EDT) No Puia Martine, PharmD Record your blood sugar as directed Result Component No Lance Broussardyssa, PharmD documented as of this encounter Visit Diagnoses Diagnosis Chronic pain of left knee COPD exacerbation (CMS/[facility]) Obstructive chronic bronchitis with exacerbation Anxiety Anxiety state, unspecified Osteoarthritis of knee, unspecified laterality, unspecified osteoarthritis type documented in this encounter Additional Health Concerns Assessment Noted Time PHQ-9 Depression Total Score: 0 12/06/19 24 10:09 AM EDT documented as of this encounter Care Teams Internet Developer Relationship Specialty Start Date End Date Name, MD Rolf [address] [place] [address] PCP - General Family Medicine 10/21/17 Martine Broussard PharmD [address] [place] [address] Pharmacist Internal Medicine 04/20/23 documented as of this encounter
--- OUTSIDE RECORDS SUMMARY | 2025-01-26 13:32 | XMS_ITS | Encounter Summary ---
Author Organization [employer] Address [address] [place] [address] Care Team Providers Care Area Representative Name Role Phone Name, Rolf PARKS Primary Care Provider [phone] Martine Broussard PharmD Unavailable [phone] Reason for Visit * Reason Comments Med Refill Encounter Details Date Type Department Care Team ([facility] st Contact Info) Description 02/10/2024 Refill [facility] MEDICINE 230 [place], [place] [phone] Name, MD Rolf 230 [place] [address] COPD exacerbation (CMS/HCC) Social History Tobacco Use [...] Description 03/02/2025 10:00 AM EDT Office Visit [address] [address] Name, MD Rolf [address] [place] [address] 04/20/2025 11:00 AM EST Telemedicine [facility] MEDICINE [address] [place] [address] Karla Lewis, DARYN documented as of this encounter Goals Goal Patient Goal Type Associated Problems Recent Progress Patient-Stated? Author Hemoglobin A1c < 7 Result Component 8.7( 11:55 AM EDT) No Puia, Martine, PharmD Record your blood sugar as directed Result Component No Puia, Martine, PharmD documented as of this encounter Visit Diagnoses Diagnosis COPD exacerbation ([facility]) Obstructive chronic bronchitis with exacerbation documented in this encounter Additional Health Concerns Assessment Noted Time PHQ-9 Depression Total Score: 0 12/06/19 24 10:09 AM EDT documented as of this encounter Care Teams Area Representative Relationship Specialty Start Date End Date Name, MD Rolf [address] [place] [address] PCP - General Family Medicine 10/21/17 Maritne Broussard PharmD [address] [place] [address] Pharmacist Internal Medicine 04/20/23 documented as of this encounter
--- OUTSIDE RECORDS SUMMARY | 2025-01-26 13:32 | XMS_ITS | Encounter Summary ---
Author Organization [employer] Address [address] [place] [address] Care Team Providers Care Casket Upholsterer Name Role Phone Name, Rolf PARKS Primary Care Provider [phone] Martine Broussard PharmD Unavailable Reason for Visit * Reason Comments Med Refill Encounter Details Date Type Department Care Team (Late st Contact Info) Description 02/28/2024 Refill [facility] MEDICINE 230 [place], [place] [phone] Name, MD Rolf 230 [place] [address] COPD exacerbation (CMS/HCC); Anxiety; Osteoarthritis of knee, [...] Description 03/02/2025 10:00 AM EDT Office Visit [address] [address] Name, MD Rolf [address] [place] [address] 04/20/2025 11:00 AM EST Telemedicine [facility] MEDICINE [address] [place] [address] Karla Lewis, DARYN documented as of this encounter Goals Goal Patient Goal Type Associated Problems Recent Progress Patient-Stated? Author Hemoglobin A1c < 7 Result Component 8.7( 11:55 AM EDT) No Puia, Martine, PharmD Record your blood sugar as directed Result Component No Pumarquise Martine, PharmD documented as of this encounter Visit Diagnoses Diagnosis COPD exacerbation (CMS/HCC) Obstructive chronic bronchitis with exacerbation Anxiety Anxiety state, unspecified Osteoarthritis of knee, unspecified laterality, unspecified osteoarthritis type Chronic pain of left knee documented in this encounter Additional Health Concerns Assessment Noted Time PHQ-9 Depression Total Score: 0 12/06/19 24 10:09 AM EDT documented as of this encounter Care Teams Casket Upholsterer Relationship Specialty Start Date End Date Name, MD Rolf 230 [place] [address] PCP - General Family Medicine 10/21/17 Martine Broussard PharmD [address] [place] [address] Pharmacist Internal Medicine 04/20/23 documented as of this encounter
--- OUTSIDE RECORDS SUMMARY | 2025-01-26 13:32 | XMS_ITS | Encounter Summary ---
Author Organization [employer] Address [address] [place] [address] Care Team Providers Care Chemistry Account Manager Name Role Phone Name, Rolf PARKS Primary Care Provider Martine Broussard PharmD Unavailable Reason for Visit * Reason Comments Med Refill Encounter Details Date Type Department Care Team (Late st Contact Info) Description 02/18/2024 Refill [facility] MEDICINE 230 [place] [address] Vivian Barajas, ANP 230 [place] [address] Diabetes mellitus type 2 with neurological manifestations [...] Description 03/02/2025 10:00 AM EDT Office Visit [address] [address] Name, MD Rolf [address] [place] [address] 04/20/2025 11:00 AM EST Telemedicine [facility] MEDICINE [address] [place] [address] Karla Lewis, DARYN documented as of this [...] documented as of this encounter Care Teams Chemistry Account Manager Relationship Specialty Start Date End Date Name, MD Rolf 230 [place] [address] PCP - General Family Medicine 10/21/17 Martine Broussard, Paulo [address] [place] [address] Pharmacist Internal Medicine 04/20/23 documented as of this encounter
--- OUTSIDE RECORDS SUMMARY | 2025-01-26 13:32 | XMS_ITS | Encounter Summary ---
Author Organization [employer] Address [address] [place] [address] Care Team Providers Care Dispute Specialist Name Role Phone Name, Rolf PARKS Primary Care Provider [phone] Martine Broussard PharmD Unavailable Reason for Visit * Reason Comments Med Refill Encounter Details Date Type Department Care Team (Late st Contact Info) Description 02/22/2024 Refill [facility] MEDICINE 230 [place], [place] [phone] Name, MD Rolf 230 [place] [address] Chronic pain of left knee; COPD exacerbation [...] 03/02/2025 10:00 AM EDT Office Visit [address] [address] Name, MD Rolf [address] [place] [address] 04/20/2025 11:00 AM EST Telemedicine [facility] MEDICINE [address] [place] [address] Karla Lewis, DARYN documented as of this encounter Goals Goal Patient Goal Type Associated Problems Recent Progress Patient-Stated? Author Hemoglobin A1c < 7 Result Component 8.7( 11:55 AM EDT) No Puia, Martine, PharmD Record your blood sugar as directed Result Component No Pumarquise Martine, PharmD documented as of this encounter Visit Diagnoses Diagnosis Chronic pain of left knee COPD exacerbation (CMS/[facility]) Obstructive chronic bronchitis with exacerbation Osteoarthritis of knee, unspecified laterality, unspecified osteoarthritis type documented in this encounter Additional Health Concerns Assessment Noted Time PHQ-9 Depression Total Score: 0 12/06/19 24 10:09 AM EDT documented as of this encounter Care Teams Dispute Specialist Relationship Specialty Start Date End Date Name, MD Rolf 230 [place] [address] PCP - General Family Medicine 10/21/17 Martine Broussard, Paulo [address] [place] [address] Pharmacist Internal Medicine 04/20/23 documented as of this encounter
--- OUTSIDE RECORDS SUMMARY | 2025-01-26 13:32 | XMS_ITS | Encounter Summary ---
Author Organization [employer] Address [address] [place] [address] Care Team Providers Care Mental Measurements Teacher Name Role Phone Name, Rolf PARKS Primary Care Provider [phone] Martine Broussard PharmD Unavailable [phone] Reason for Visit * Reason Comments Med Refill Encounter Details Date Type Department Care Team ([facility] st Contact Info) Description 02/09/2024 Refill [facility] MEDICINE 230 [place], [place] [phone] Name, MD Rolf 230 [place] [address] COPD exacerbation (CMS/HCC) Social History Tobacco Use [...] Description 03/02/2025 10:00 AM EDT Office Visit [address] [address] Name, MD Rolf [address] [place] [address] 04/20/2025 11:00 AM EST Telemedicine [facility] MEDICINE [address] [place] [address] Karla Lewis, DARYN documented as of this encounter Goals Goal Patient Goal Type Associated Problems Recent Progress Patient-Stated? Author Hemoglobin A1c < 7 Result Component 8.7( 11:55 AM EDT) No Puia, Martine, PharmD Record your blood sugar as directed Result Component No Puia, Martine, PharmD documented as of this encounter Visit Diagnoses Diagnosis COPD exacerbation ([facility]) Obstructive chronic bronchitis with exacerbation documented in this encounter Additional Health Concerns Assessment Noted Time PHQ-9 Depression Total Score: 0 12/06/19 24 10:09 AM EDT documented as of this encounter Care Teams Mental Measurements Teacher Relationship Specialty Start Date End Date Name, MD Rolf 230 [place] [address] PCP - General Family Medicine 10/21/17 Martine Broussard PharmD 230 [place] [address] Pharmacist Internal Medicine 04/20/23 documented as of this encounter
--- OUTSIDE RECORDS SUMMARY | 2025-01-26 13:32 | XMS_ITS | Encounter Summary ---
Author Organization [employer] Address [address] [place] [address] Care Team Providers Care Veterinary Laboratory Diagnostician Name Role Phone Name, Rolf PARKS Primary Care Provider [phone] Martine Broussard PharmD Unavailable Reason for Visit * Reason Onset Date Comments fyi 02/22/2024 Durable Medical Equipment 02/22/2024 Encounter Details Date Type Department Care Team (Late st Contact Info) Description 02/22/2024 Telephone [facility] MEDICINE 230 [place], [place] [phone] Name, MD Rolf [address] [place], [place] [phone] fyi; Durable Medical Equipment Social History Tobacco [...] surgery 02/28 and needs DME equipment. Annetta (belarusian) [phone] documented in this encounter Plan of Treatment Upcoming Encounters Date Type Department Care Team (Late st Contact Info) Description 03/02/2025 10:00 AM EDT Office Visit [facility] MEDICINE [address] [place] [address] Name, MD Rolf [address] [place] [address] 04/20/2025 11:00 AM EST Telemedicine [facility] MEDICINE [address] [place] [address] Karla Lewis, DARYN documented as of this encounter Goals Goal Patient Goal Type Associated Problems Recent Progress Patient-Stated? Author Hemoglobin A1c < 7 Result Component 8.7( 5 11:55 AM EDT) No Martine Broussard, PharmD Record your blood sugar as directed Result Component No Martine Broussard PharmD documented as of this encounter Visit Diagnoses Not on filedocumented in this encounter Additional Health Concerns Assessment Noted Time PHQ-9 Depression Total Score: 0 12/06/19 24 10:09 AM EDT documented as of this encounter Care Teams Veterinary Laboratory Diagnostician Relationship Specialty Start Date End Date Name, MD Rolf 230 [place] [address] PCP - General Family Medicine 10/21/17 Martine Broussard PharmD 230 [place] [address] Pharmacist Internal Medicine 04/20/23 documented as of this encounter
--- OUTSIDE RECORDS SUMMARY | 2025-01-26 13:32 | XMS_ITS | Encounter Summary ---
Author Organization [employer] Address [address] [place] [address] Care Team Providers Care Interpreter Name Role Phone Name, Rolf PARKS Primary Care Provider [phone] Martine Broussard PharmD Unavailable Reason for Visit * Reason Comments Med Refill Encounter Details Date Type Department Care Team (Late st Contact Info) Description 02/11/2024 Refill [facility] MEDICINE 230 [place], [place] [phone] Name, MD Rolf [address] [place] [address] Anxiety; Chronic pain of left knee; Osteoarthritis [...] Description 03/02/2025 10:00 AM EDT Office Visit [address] [address] Name, MD Rolf [address] [place] [address] 04/20/2025 11:00 AM EST Telemedicine [address] [address] Karla Lewis, DARYN documented as of this [...] documented as of this encounter Care Teams Interpreter Relationship Specialty Start Date End Date Name, MD Rolf [address] [place] [address] PCP - General Family Medicine 10/21/17 Martine Broussard PharmD 230 [place] [address] Pharmacist Internal Medicine 04/20/23 documented as of this encounter
--- OUTSIDE RECORDS SUMMARY | 2025-01-26 13:32 | XMS_ITS | Encounter Summary ---
Author Organization [employer] Address [address] [place] [address] Care Team Providers Care Motor Rebuilder Name Role Phone Name, Rolf PARKS Primary Care Provider Martine Broussard PharmD Unavailable Reason for Visit * Reason Comments Med Refill Encounter Details Date Type Department Care Team (Late st Contact Info) Description 02/18/2024 Refill [facility] MEDICINE 230 [place] [address] Vivian Barajas, ANP 230 [place] [address] Diabetes mellitus type 2 with neurological manifestations [...] Description 03/02/2025 10:00 AM EDT Office Visit [address] [address] Name, MD Rolf [address] [place] [address] 04/20/2025 11:00 AM EST Telemedicine [facility] MEDICINE [address] [place] [address] Karla Lewis, DARYN documented as of this [...] documented as of this encounter Care Teams Motor Rebuilder Relationship Specialty Start Date End Date Name, MD Rolf 230 [place] [address] PCP - General Family Medicine 10/21/17 Martine Broussard, Paulo [address] [place] [address] Pharmacist Internal Medicine 04/20/23 documented as of this encounter
--- OUTSIDE RECORDS SUMMARY | 2025-01-26 13:33 | XMS_ITS | Encounter Summary ---
Author Organization [employer] Address [address] [place] [address] Care Team Providers Care Ocean Lifeguard Specialist Name Role Phone Name, Rolf PARKS Primary Care Provider Martine Broussard PharmD Unavailable [phone] Reason for Visit * Reason Comments Med Refill Encounter Details Date Type Department Care Team (Late st Contact Info) Description 03/23/2024 Refill [facility] MEDICINE 230 [place] [address] Vivian Barajas, ANP 230 [place] [address] Diabetes mellitus type 2 with neurological manifestations [...] Description 03/02/2025 10:00 AM EDT Office Visit [address] [address] Name, MD Rolf [address] [place] [address] 04/20/2025 11:00 AM EST Telemedicine [facility] MEDICINE [address] [place] [address] Karla Lewis, DARYN documented as of this [...] documented as of this encounter Care Teams Ocean Lifeguard Specialist Relationship Specialty Start Date End Date Name, MD Rolf [address] [place] [address] PCP - General Family Medicine 10/21/17 Martine Broussard, Paulo [address] [place] [address] Pharmacist Internal Medicine 04/20/23 documented as of this encounter
--- OUTSIDE RECORDS SUMMARY | 2025-01-26 13:33 | XMS_ITS | Encounter Summary ---
Author Organization [employer] Address [address] [place] [address] Care Team Providers Care Coremaker Machine Name Role Phone Name, Rolf PARKS Primary Care Provider [phone] Martine Broussard PharmD Unavailable [phone] Reason for Visit * Reason Onset Date Comments Medication Question 05/17/2024 Encounter Details Date Type Department Care Team ([facility] st Contact Info) Description 05/17/2024 Telephone [facility] MEDICINE 230 [place], [place] [phone] Name, MD Rolf 230 [place], [place] [phone] Medication Question Social History Tobacco Use Types [...] - 05/19/2024 12:37 PM EST TC vis BLS#[id number], daughter updated on covering PCP/Dr Hilliard's temporary [...] tablets X 7 days from [facility], [address] [place] [address]. Pt had also received RX on 05/05/[address] Gamble for his chronic pain medications Percocet 5mg #56 tablets. On 05/17/24 Spoke with Daughter, who is patients ROPE MAKING MACHINE OPERATOR as well, and advised she was not to use his Percocet RX from Dr Gamble, only use the pain medication from surgeons office. Advised daughter to call surgeons office for further postop pain medicationorders if needed. Return TC via BLS#[id number], daughter states that surgeons office is no [...] 05/17/2024 12:45 PM EST Return TC via BLS#[id number], spoke with daughter Annetta, corinne advised Percocet [...] dosage of medication. Please contact Daughter at [phone]. (Senegalese Speaker) documented in this encounter Plan of Treatment Upcoming Encounters Date Type Department Care Team (Late st Contact Info) Description 03/02/2025 10:00 AM EDT Office Visit [facility] MEDICINE [address] [place] [address] Name, MD Rolf [address] [place] [address] 04/20/2025 11:00 AM EST Telemedicine [address] [phone] Karla Lewis RN documented as of this encounter Goals Goal Patient Goal Type Associated Problems Recent Progress Patient-Stated? Author Hemoglobin A1c < 7 Result Component 8.7( 11:55 AM EDT) No Martine Broussard, PharmLexi Record your blood sugar as directed Result Component No Martine Broussard PharmD documented as of this encounter Visit Diagnoses Not on filedocumented in this encounter Additional Health Concerns Assessment Noted Time PHQ-9 Depression Total Score: 0 12/06/19 24 10:09 AM EDT documented as of this encounter Care Teams Coremaker Machine Relationship Specialty Start Date End Date Name, MD Rolf [address] [place] [address] PCP - General Family Medicine 10/21/17 Martine Broussard PharmD [address] [place] [address] Pharmacist Internal Medicine 04/20/23 documented as of this encounter
--- OUTSIDE RECORDS SUMMARY | 2025-01-26 13:33 | XMS_ITS | Encounter Summary ---
Author Organization [employer] Address [address] [place] [address] Care Team Providers Care Alarm Technician Name Role Phone Name, Rolf PARKS Primary Care Provider [phone] Martine Broussard PharmD Unavailable [phone] Reason for Visit * Reason Comments Med Refill Encounter Details Date Type Department Care Team (Late st Contact Info) Description 03/08/2024 Refill [facility] MEDICINE 230 [place], [place] [phone] Name, MD Rolf 230 [place] [address] Osteoarthritis of knee, unspecified laterality, unspecified osteoarthritis [...] Description 03/02/2025 10:00 AM EDT Office Visit [address] [address] Name, MD Rolf [address] [place] [address] 04/20/2025 11:00 AM EST Telemedicine [facility] MEDICINE [address] [place] [address] Karla Lewis, DARYN documented as of this [...] documented as of this encounter Care Teams Alarm Technician Relationship Specialty Start Date End Date Name, MD Rolf 230 [place] [address] PCP - General Family Medicine 10/21/17 Martine Broussard, Paulo [address] [place] [address] Pharmacist Internal Medicine 04/20/23 documented as of this encounter
--- OUTSIDE RECORDS SUMMARY | 2025-01-26 13:33 | XMS_ITS | Encounter Summary ---
Author Organization [employer] Address [address] [place] [address] Care Team Providers Care Guitar Repairer Name Role Phone Name, Rolf PARKS Primary Care Provider [phone] Puia, Martine PharmD Unavailable Puia, Martine PharmD Unavailable Reason for Visit * Reason Comments Med Refill Encounter Details Date Type Department Care Team (Late st Contact Info) Description 07/16/2023 Refill [facility] MEDICINE 230 [place], [place] [phone] Name, MD Rolf [address] [place], [place] [phone] Osteoarthritis of knee, unspecified laterality, unspecified osteoarthritis [...] Description 03/02/2025 10:00 AM EDT Office Visit [facility] MEDICINE [address] [place] [address] Name, MD Rolf [address] [place] [address] 04/20/2025 11:00 AM EST Telemedicine [address] [address] Karla Lewis, RN documented as of this [...] documented as of this encounter Care Teams Guitar Repairer Relationship Specialty Start Date End Date Rolf Gamble MD [address] [place] [address] PCP - General Family Medicine 10/21/17 Martine Broussard, Paulo [address] [place] [address] Pharmacist Internal Medicine 04/20/23 Martine Broussard, Paulo [address] [place] [address] Pharmacist Internal Medicine 04/20/23 08/11/23 documented as of this encounter
--- OUTSIDE RECORDS SUMMARY | 2025-01-26 13:33 | XMS_ITS | Encounter Summary ---
Author Organization [employer] Address [address] [place] [address] Care Team Providers Care Auto Cleaner Name Role Phone Name, Rolf PARKS Primary Care Provider [phone] Puia, Martine PharmD Unavailable Puia, Martine PharmD Unavailable [phone] Reason for Visit * Reason Comments Med Refill Encounter Details Date Type Department Care Team (Late st Contact Info) Description 06/28/2023 Refill [facility] MEDICINE 230 [place], [place] [phone] Name, MD Rolf 230 [place], [place] [phone] Osteoarthritis of knee, unspecified laterality, unspecified osteoarthritis [...] Description 03/02/2025 10:00 AM EDT Office Visit [facility] MEDICINE [address] [place] [address] Name, MD Rolf [address] [place] [address] 04/20/2025 11:00 AM EST Telemedicine [address] [address] Karla Lewis, RN documented as of this [...] as of this encounter Care Teams Auto Cleaner Relationship Specialty Start Date End Date Rolf Gamble MD [address] [place] [address] PCP - General Family Medicine 10/21/17 Martine Broussard, Paulo [address] [place] [address] Pharmacist Internal Medicine 04/20/23 Martine Broussard, Paulo [address] [place] [address] Pharmacist Internal Medicine 04/20/23 08/11/23 documented as of this encounter
--- OUTSIDE RECORDS SUMMARY | 2025-01-26 13:33 | XMS_ITS | Encounter Summary ---
Author Organization [employer] Address [address] [place] [address] Care Team Providers Care Residential Leasing Agent Name Role Phone Name, Rolf PARKS Primary Care Provider [phone] Martine Broussard PharmD Unavailable Reason for Visit * Reason Onset Date Comments Med Refill 05/01/2024 Encounter Details Date Type Department Care Team (Late st Contact Info) Description 05/01/2024 Telephone [facility] 230 [place], [place] [phone] Name, MD Rolf 230 [place], [place] [phone] Med Refill Social History Tobacco Use Types [...] 2:20 PM EST Medication was sent to [facility] #[id number] on 03/06/24 #30 with 3 refills. * Telephone Encounter - Osmar Gonsalez - 05/01/2024 2:15 PM EST TC from pt requesting medication refill. Medications needing refill : traZODone (Desyrel) 50 MG tablet To be sent to: [id number] - [place], [place] - [facility] [place] [facility] documented in this encounter Plan of Treatment Upcoming Encounters Date Type Department Care Team (Late st Contact Info) Description 03/02/2025 10:00 AM EDT Office Visit [facility] [address] [place] [address] Name, MD Rolf [address] [place] [address] 04/20/2025 11:00 AM EST Telemedicine [facility] [address] [place] [address] Karla Lewis, RN documented as of this [...] as of this encounter Care Teams Residential Leasing Agent Relationship Specialty Start Date End Date Name, MD Rolf [address] [place] [address] PCP - General Family Medicine 10/21/17 Martine Broussard, PharmD [address] [place] [address] Pharmacist Internal Medicine 04/20/23 documented as of this encounter
--- OUTSIDE RECORDS SUMMARY | 2025-01-26 13:33 | XMS_ITS | Encounter Summary ---
Author Organization [employer] Address [address] [place] [address] Care Team Providers Care Etl Architect Name Role Phone Name, Rolf PARKS Primary Care Provider [phone] Martine Broussard PharmD Unavailable [phone] Reason for Visit * Reason Onset Date Comments FYI 05/04/2024 Encounter Details Date Type Department Care Team (Late st Contact Info) Description 05/04/2024 Telephone [facility] 230 [place], [place] [phone] Name, MD Rolf 230 [place], [place] [phone] FYI Social History Tobacco Use Types Packs/Day [...] already scheduled for follow up on 05/31/24. [facility] notes sent to medical records. * Telephone Encounter - Funmi Benjamin - 05/04/2024 4:01 PM EST Tc from pt daughter to report pt went to [facility] on 05/03. A knee replacement [...] 03/02/2025 10:00 AM EDT Office Visit [facility] [address] [place] [address] Name, [place] [address] 04/20/2025 11:00 AM EST Telemedicine [facility] [address] [place] [place] [address] Karla Lewis, RN documented as of this [...] documented as of this encounter Care Teams Etl Architect Relationship Specialty Start Date End Date Name, MD Rolf [address] [place] [address] PCP - General Family Medicine 10/21/17 Martine Broussard, PharmD [address] [place] [address] Pharmacist Internal Medicine 04/20/23 documented as of this encounter
--- OUTSIDE RECORDS SUMMARY | 2025-01-26 13:33 | XMS_ITS | Encounter Summary ---
Author Organization [employer] Address [address] [place] [address] Care Team Providers Care Crystal Grinder Name Role Phone Name, Rolf PARKS Primary Care Provider Martine Broussard PharmD Unavailable Reason for Visit * Reason Comments Med Refill Encounter Details Date Type Department Care Team (Late st Contact Info) Description 03/01/2024 Refill [facility] 230 [place], [place] [phone] Name, MD Rolf 230 [place] [address] Anxiety; COPD exacerbation (CMS/HCC); Osteoarthritis of knee, [...] Description 03/02/2025 10:00 AM EDT Office Visit [address] [address] Name, MD Rolf [address] [place] [address] 04/20/2025 11:00 AM EST Telemedicine [facility] [address] [place] [address] Karla Lewis, DARYN documented as of this encounter Goals Goal Patient Goal Type Associated Problems Recent Progress Patient-Stated? Author Hemoglobin A1c < 7 Result Component 8.7( 11:55 AM EDT) No Puia, Martine, PharmD Record your blood sugar as directed Result Component No Pumarquise Martine, PharmD documented as of this encounter Visit Diagnoses Diagnosis Anxiety Anxiety state, unspecified COPD exacerbation (CMS/[facility]) Obstructive chronic bronchitis with exacerbation Osteoarthritis of knee, unspecified laterality, unspecified osteoarthritis type Chronic pain of left knee documented in this encounter Additional Health Concerns Assessment Noted Time PHQ-9 Depression Total Score: 0 12/06/19 24 10:09 AM EDT documented as of this encounter Care Teams Crystal Grinder Relationship Specialty Start Date End Date Name, MD Rolf 230 [place] [address] PCP - General Family Medicine 10/21/17 Martine Broussard PharmD 230 [place] [address] Pharmacist Internal Medicine 04/20/23 documented as of this encounter
--- OUTSIDE RECORDS SUMMARY | 2025-01-26 13:33 | XMS_ITS | Encounter Summary ---
Author Organization [employer] Address [address] [place] [address] Care Team Providers Care Talent Management Specialist Name Role Phone Name, Rolf PARKS Primary Care Provider [phone] Martine Broussard PharmD Unavailable Reason for Visit * Reason Onset Date Comments Durable Medical Equipment 04/05/2024 Encounter Details Date Type Department Care Team (Late st Contact Info) Description 04/05/2024 Telephone [facility] 230 [place], [place] [phone] Name, MD Rolf 230 [place], [place] [phone] Durable Medical Equipment Social History Tobacco Use [...] surgery. Pt denies any trouble defers a [facility] appt. Pleasereview and advise, thank you. Tc from pt daughter requesting a Portable toilet due to him falling yesterday and not reaching the bathroom. If any questions contact pt Daughter at [phone] * Telephone Encounter - Kip Grant - 04/05/2024 3:03 PM EST Tc from pt daughter requesting a Portable toilet due to him falling yesterday and not reaching the bathroom. If any questions contact pt Daughter at [phone] documented in this encounter Plan of Treatment Upcoming Encounters Date Type Department Care Team (Late st Contact Info) Description 03/02/2025 10:00 AM EDT Office Visit [address] [address] Name, MD Rolf [address] [place] [address] 04/20/2025 11:00 AM EST Telemedicine [address] [address] Karla Lewis RN documented as of this [...] documented as of this encounter Care Teams Talent Management Specialist Relationship Specialty Start Date End Date NameRolf MD [address] [place] [address] PCP - General Family Medicine 10/21/17 Martine Broussard, PharmD [address] [place] [address] Pharmacist Internal Medicine 04/20/23 documented as of this encounter
--- OUTSIDE RECORDS SUMMARY | 2025-01-26 13:33 | XMS_ITS | Encounter Summary ---
Author Organization [employer] Address [address] [place] [address] Care Team Providers Care Wrap Knitting Machine Operator Name Role Phone Name, Rolf PARKS Primary Care Provider [phone] Puia, Martine PharmD Unavailable Puia, Martine PharmD Unavailable Reason for Visit * Reason Comments Med Refill Encounter Details Date Type Department Care Team (Late st Contact Info) Description 06/02/2023 Refill [facility] MED & PEDS [address] [place] [address] Delisa Hilliard MD 230 [place] [address] Osteoarthritis of knee, unspecified laterality, unspecified osteoarthritis [...] 03/02/2025 10:00 AM EDT Office Visit [address] [address] NameRolf MD [address] [place] [address] 04/20/2025 11:00 AM EST Telemedicine [address] [address] Karla Lewis, DARYN documented as of this [...] documented as of this encounter Care Teams Wrap Knitting Machine Operator Relationship Specialty Start Date End Date Rolf Gamble MD [address] [place] [address] PCP - General Family Medicine 10/21/17 Martine Broussard PharmD 230 [place] [address] Pharmacist Internal Medicine 04/20/23 Martine Broussard PharmD 230 [place] [address] Pharmacist Internal Medicine 04/20/23 08/11/23 documented as of this encounter
--- OUTSIDE RECORDS SUMMARY | 2025-01-26 13:33 | XMS_ITS | Encounter Summary ---
Author Organization [employer] Address [address] [place] [address] [place] [address] Care Team Providers Care International Marketing Coordinator Name Role Phone Name, Rolf PARKS Primary Care Provider [phone] Puia, Martine PharmD Unavailable Puia, Martine PharmD Unavailable [phone] Reason for Visit * Reason Comments Med Refill Encounter Details Date Type Department Care Team (Late st Contact Info) Description 07/12/2023 Refill [facility] 230 [place], [place] [phone] Name, MD Rolf 230 [place], [place] [phone] Anxiety Social History Tobacco Use Types Packs/Day [...] Description 03/02/2025 10:00 AM EDT Office Visit [facility] [address] [place] [address] Name, MD Rolf [address] [place] [address] 04/20/2025 11:00 AM EST Telemedicine [address] [address] Karla Lewis, DARYN documented as of this [...] documented as of this encounter Care Teams International Marketing Coordinator Relationship Specialty Start Date End Date Rolf Gamble MD [address] [place] [address] PCP - General Family Medicine 10/21/17 Puia, Martine, PharmD 230 [place] [address] Pharmacist Internal Medicine 04/20/23 Martine Broussard PharmD 230 [place] [address] Pharmacist Internal Medicine 04/20/23 08/11/23 documented as of this encounter
--- OUTSIDE RECORDS SUMMARY | 2025-01-26 13:33 | XMS_ITS | Encounter Summary ---
Author Organization [employer] Address [address] [place] [address] Care Team Providers Care Director Of Patient Care Name Role Phone Name, Rolf PARKS Primary Care Provider [phone] Martine Broussard PharmD Unavailable Reason for Visit * Reason Comments Med Refill Encounter Details Date Type Department Care Team (Late st Contact Info) Description 03/02/2024 Refill [facility] MEDICINE [address] [place] [address] Vivian Barajas, ANP 230 [place] [address] Diabetes mellitus type 2 with neurological manifestations [...] Description 03/02/2025 10:00 AM EDT Office Visit [address] [address] Name, MD Rolf [address] [place] [address] 04/20/2025 11:00 AM EST Telemedicine [facility] MEDICINE [address] [place] [address] Karla Lewis, DARYN documented as of this [...] Date End Date Name, MD Rolf 230 [place] [address] PCP - General Family Medicine 10/21/17 Martine Broussard, Paulo 230 [place] [address] Pharmacist Internal Medicine 04/20/23 documented as of this encounter
--- OUTSIDE RECORDS SUMMARY | 2025-01-26 13:33 | XMS_ITS | Encounter Summary ---
Author Organization [employer] Address [address] [place] [address] [place] [address] Care Team Providers Care Maintenance Helper Name Role Phone Name, Rolf PARKS Primary Care Provider Martine Broussard PharmD Unavailable Reason for Visit * Reason Comments Med Refill Encounter Details Date Type Department Care Team (Late st Contact Info) Description 04/03/2024 Refill [facility] 230 [place], [place] [phone] Name, MD Rolf 230 [place] [address] Abnormal chest x-ray; Tobacco use; Type 2 diabetes mellitus with hyperglycemia, without long-term current use of insulin ([facility]); Osteoarthritis of knee, unspecified laterality, unspecified osteoarthritis [...] Description 03/02/2025 10:00 AM EDT Office Visit [facility] [address] [place] [address] Name, MD Rolf [address] [place] [address] 04/20/2025 11:00 AM EST Telemedicine [facility] [address] [place] [address] Karla Lewis, RN documented as of this [...] hyperglycemia, without long-term current use of insulin ([facility]) Osteoarthritis of knee, unspecified laterality, unspecified osteoarthritis type Iron deficiency anemia, unspecified iron deficiency anemia type documented in this encounter Additional Health Concerns Assessment Noted Time PHQ-9 Depression Total Score: 0 12/06/19 24 10:09 AM EDT documented as of this encounter Care Teams Maintenance Helper Relationship Specialty Start Date End Date Name, MD Rolf 230 [place] [address] PCP - General Family Medicine 10/21/17 Martine Broussard PharmD 230 [place] [address] Pharmacist Internal Medicine 04/20/23 documented as of this encounter
--- OUTSIDE RECORDS SUMMARY | 2025-01-26 13:33 | XMS_ITS | Encounter Summary ---
Author Organization [employer] Address [address] [place] [address] Care Team Providers Care Rn Case Management Name Role Phone Name, Rolf PARKS Primary Care Provider [phone] Puia, Martine PharmD Unavailable Puia, Martine PharmD Unavailable Reason for Visit * Reason Comments Med Refill Encounter Details Date Type Department Care Team (Late st Contact Info) Description 06/22/2023 Refill [facility] MEDICINE 230 [place], [place] [phone] Name, MD Rolf 230 [place], [place] [phone] Osteoarthritis of knee, unspecified laterality, unspecified osteoarthritis [...] AM EST documented as of this encounter Functional Status * Over the last 2 weeks, how often have you been bothered by any of the following problems? Question Answer Date of Assessment Author Feeling nervous, anxious, or on edge 3 06/04 9:04 AM Karla Beauchamp RN Not being able to stop or co ntrol worrying 2 06/25/2023 9:04 AM Karla Beauchamp RN Worrying too much about diff erent things 3 06/25/2023 9:04 AM Karla Beauchamp RN Trouble relaxing 3 06/25/2023 9:04 AM Karla CONTRERAS ae, RN Being so restless that it is hard to sit still 2 06/25/2023 9:04 AM Karla Beauchamp RN Becoming easily annoyed or irritable 2 06/04 9:04 AM Karla Beauchamp RN Feeling afraid as if somethi ng awful might happen 2 06/25/2023 9:04 AM Karla Beauchamp RN RYLEY-7 Total Score 17 06/25/2023 9:04 AM Karla Beauchamp RN documented as of this encounter Plan of Treatment Upcoming Encounters Date Type Department Care Team (Late st Contact Info) Description 03/02/2025 10:00 AM EDT Office Visit [facility] MEDICINE [address] [place] [address] Name, MD Rolf [address] [place], [place] [address] [address] 04/20/2025 11:00 AM EST Telemedicine [facility] [address] [place] [address] Karla Lewis, RN documented as of this [...] as of this encounter Care Teams Rn Case Management Relationship Specialty Start Date End Date Name, MD [place] [address] PCP - General Family Medicine 10/21/17 Martine Broussard, PharmD [address] [place] [address] Pharmacist Internal Medicine 04/20/23 Martine Broussard, [place] [address] Pharmacist Internal Medicine 04/20/23 08/11/23 documented as of this encounter
--- OUTSIDE RECORDS SUMMARY | 2025-01-26 13:33 | XMS_ITS | Encounter Summary ---
Author Organization [employer] Address [address] [place] [address] Care Team Providers Care Nursing Program Coordinator Name Role Phone Name, Rolf PARKS Primary Care Provider [phone] Martine Broussard PharmD Unavailable [phone] Reason for Visit * Reason Comments Med Refill Encounter Details Date Type Department Care Team ([facility] st Contact Info) Description 03/23/2024 Refill [facility] MED[facility]INE 230 [place], [place] [phone] Name, MD Rolf 230 [place] [address] Anxiety Social History Tobacco Use Types Packs/Day [...] Description 03/02/2025 10:00 AM EDT Office Visit [address] [address] Name, MD Rolf [address] [place] [address] 04/20/2025 11:00 AM EST Telemedicine [address] [address] Karla Lewis, DARYN documented as of this [...] documented as of this encounter Care Teams Nursing Program Coordinator Relationship Specialty Start Date End Date Name, MD Rolf 230 [place] [address] PCP - General Family Medicine 10/21/17 Martine Broussard PharmD 230 [place] [address] Pharmacist Internal Medicine 04/20/23 documented as of this encounter
--- OUTSIDE RECORDS SUMMARY | 2025-01-26 13:33 | XMS_ITS | Encounter Summary ---
Author Organization [employer] Address [address] [place] [address] Care Team Providers Care Solar Site Assessment Specialist Name Role Phone Name, Rolf PARKS Primary Care Provider [phone] Martine Broussard PharmD Unavailable [phone] Reason for Visit * Reason Comments Med Refill Encounter Details Date Type Department Care Team (Late st Contact Info) Description 04/03/[address] [facility] MED[facility]INE 230 [place] [address] Marcela Ruiz NP 230 [place] [address] Osteoarthritis of knee, unspecified laterality, unspecified osteoarthritis [...] Description 03/02/2025 10:00 AM EDT Office Visit [address] [address] Name, MD Rolf [address] [place] [address] 04/20/2025 11:[address] [facility] [address] [place] [address] Karla Lewis, DARYN documented as of this [...] documented as of this encounter Care Teams Solar Site Assessment Specialist Relationship Specialty Start Date End Date Name, MD Rolf 230 [place] [address] PCP - General Family Medicine 10/21/17 Martine Broussard, Paulo 230 [place] [address] Pharmacist Internal Medicine 04/20/23 documented as of this encounter
--- OUTSIDE RECORDS SUMMARY | 2025-01-26 13:33 | XMS_ITS | Encounter Summary ---
Author Organization [email or web address] Address [address] [place] [address] Care Team Providers Care Analyst Market Intelligence Name Role Phone Name, Rolf PARKS Primary Care Provider Puia, Martine PharmD Unavailable Puia, Martine PharmD Unavailable Reason for Visit * Reason Comments Med Refill Encounter Details Date Type Department Care Team (Late st Contact Info) Description 06/02/2023 Refill [facility] MED & PEDS 505 [place] [address] Delisa Hilliard MD 230 [place] [address] Osteoarthritis of knee, unspecified laterality, unspecified osteoarthritis [...] Description 03/02/2025 10:00 AM EDT Office Visit [address] [address] NameRolf MD [address] [place] [address] 04/20/2025 11:00 AM EST Telemedicine [address] [address] Karla Lewis, DARYN documented as of this [...] documented as of this encounter Care Teams Analyst Market Intelligence Relationship Specialty Start Date End Date Rolf Gamble MD [address] [place] [address] PCP - General Family Medicine 10/21/17 Martine Broussard PharmD 230 [place] [address] Pharmacist Internal Medicine 04/20/23 Martine Broussard PharmD 230 [place] [address] Pharmacist Internal Medicine 04/20/23 08/11/23 documented as of this encounter
--- OUTSIDE RECORDS SUMMARY | 2025-01-26 13:33 | XMS_ITS | Encounter Summary ---
Author Organization [employer] Address [address] [place] [address] Care Team Providers Care 911 Emergency Dispatcher Name Role Phone Name, Rolf PARKS Primary Care Provider [phone] Martine Broussard PharmD Unavailable [phone] Reason for Visit * Reason Comments Med Refill Encounter Details Date Type Department Care Team (Late st Contact Info) Description 09/15/2023 Refill [facility] MED[facility]INE 230 [place], [place] [phone] Name, MD Rolf 230 [place] [address] Osteoarthritis of knee, unspecified laterality, unspecified osteoarthritis [...] Description 03/02/2025 10:00 AM EDT Office Visit [address] [address] Name, MD Rolf [address] [place] [address] 04/20/2025 11:00 AM EST Telemedicine [address] [address] Karla Lewis RN documented as of this [...] documented as of this encounter Care Teams 911 Emergency Dispatcher Relationship Specialty Start Date End Date Rolf Gamble MD [address] [place] [address] PCP - General Family Medicine 10/21/17 Puia, Martine, PharmD [address] [place] [address] Pharmacist Internal Medicine 04/20/23 documented as of this encounter
--- OUTSIDE RECORDS SUMMARY | 2025-01-26 13:33 | XMS_ITS | Encounter Summary ---
Author Organization [employer] Address [address] [place] [address] Care Team Providers Care Tricot Knitting Machine Operator Name Role Phone Name, Rolf PARKS Primary Care Provider Martine Broussard PharmD Unavailable [phone] Reason for Visit * Reason Comments Med Refill Encounter Details Date Type Department Care Team (Late st Contact Info) Description 03/13/2024 Refill [facility] 230 [place] [address] Vivian Barajas, ANP 230 [place] [address] Diabetes mellitus type 2 with neurological manifestations [...] 03/02/2025 10:00 AM EDT Office Visit [address] [address] Name, MD Rolf [address] [address] 04/20/2025 11:00 AM EST Telemedicine [facility] [address] [place] [address] Karla Lewis, DARYN documented as of this [...] documented as of this encounter Care Teams Tricot Knitting Machine Operator Relationship Specialty Start Date End Date Name, MD Rolf 230 [place] [address] PCP - General Family Medicine 10/21/17 Martine Broussard, Paulo 230 [place] [address] Pharmacist Internal Medicine 04/20/23 documented as of this encounter
--- OUTSIDE RECORDS SUMMARY | 2025-01-26 13:33 | XMS_ITS | Encounter Summary ---
Author Organization [employer] Address [address] [place] [address] Care Team Providers Care Roaster Helper Name Role Phone Name, Rolf PARKS Primary Care Provider [phone] Martine Broussard PharmD Unavailable [phone] Reason for Visit * Reason Comments Med Refill Encounter Details Date Type Department Care Team (Late st Contact Info) Description 05/02/2024 Refill [facility] 230 [place], [place] [phone] Name, MD Rolf 230 [place] [address] Osteoarthritis of knee, unspecified laterality, unspecified osteoarthritis [...] Description 03/02/2025 10:00 AM EDT Office Visit [facility] [address] [place] [address] Name, MD Rolf [address] [place] [address] 04/20/2025 11:00 AM EST Telemedicine [facility] [address] [place] [address] Karla Lewis RN documented as of this [...] documented as of this encounter Care Teams Roaster Helper Relationship Specialty Start Date End Date Name, MD Rolf 230 [place] [address] PCP - General Family Medicine 10/21/17 Martine Broussard, Paulo [address] [place] [address] Pharmacist Internal Medicine 04/20/23 documented as of this encounter
--- OUTSIDE RECORDS SUMMARY | 2025-01-26 13:33 | XMS_ITS | Encounter Summary ---
Author Organization [employer] Address [address] [place] [address] Care Team Providers Care Yarn Examiner Skeins Name Role Phone Name, Rolf PARKS Primary Care Provider Martine Broussard PharmD Unavailable Reason for Visit * Reason Comments Med Refill Encounter Details Date Type Department Care Team (Late st Contact Info) Description 04/20/2024 Refill [facility] 230 [place], [place] [phone] Name, MD Rolf 230 [place] [address] Anxiety; Osteoarthritis of knee, unspecified laterality, unspecified osteoarthritis type; Type 2 diabetes mellitus with hyperglycemia, without long-term current use of insulin ([facility]); Iron deficiency anemia, unspecified iron deficiency anemia [...] Description 03/02/2025 10:00 AM EDT Office Visit [facility] [address] [place] [address] Name, MD Rolf [address] [place] [address] 04/20/2025 11:00 AM EST Telemedicine [facility] [address] [place] [address] Karla Lewis, RN documented as of this encounter Goals Goal Patient Goal Type Associated Problems Recent Progress Patient-Stated? Author Hemoglobin A1c < 7 Result Component 8.7( 11:55 AM EDT) No Martine BroussardPaulo Record your blood sugar as directed Result Component No Martine Broussard PharmD documented as of this encounter Visit Diagnoses Diagnosis Anxiety Anxiety state, unspecified Osteoarthritis of knee, unspecified laterality, unspecified osteoarthritis type Type 2 diabetes mellitus with hyperglycemia, without long-term current use of insulin ([facility]) Iron deficiency anemia, unspecified iron deficiency anemia type Abnormal chest x-ray Nonspecific (abnormal) findings on radiological and other examination of lung field Tobacco use documented in this encounter Additional Health Concerns Assessment Noted Time PHQ-9 Depression Total Score: 0 12/06/19 24 10:09 AM EDT documented as of this encounter Care Teams Yarn Examiner Skeins Relationship Specialty Start Date End Date Name, MD Rolf [address] [place] [address] PCP - General Family Medicine 10/21/17 Martine Broussard PharmD [address] [place] [address] Pharmacist Internal Medicine 04/20/23 documented as of this encounter
--- OUTSIDE RECORDS SUMMARY | 2025-01-26 13:33 | XMS_ITS | Encounter Summary ---
Author Organization [employer] Address [address] [place] [address] Care Team Providers Care Service Attendant Name Role Phone Name, Rolf PARKS Primary Care Provider [phone] Martine Broussard PharmD Unavailable Reason for Visit * Reason Comments Med Refill Encounter Details Date Type Department Care Team (Late st Contact Info) Description 03/08/2024 Refill [facility] 230 [place] [address] Vivian Barajas, ANP 230 [place] [address] Diabetes mellitus type 2 with neurological manifestations [...] Description 03/02/2025 10:00 AM EDT Office Visit [address] [address] Name, MD Rolf [address] [place] [address] 04/20/2025 11:00 AM EST Telemedicine [facility] [address] [place] [address] Karla Lewis, DARYN documented as of this [...] as of this encounter Care Teams Service Attendant Relationship Specialty Start Date End Date Name, MD Rolf 230 [place] [address] PCP - General Family Medicine 10/21/17 Martine Broussard, Paulo [address] [place] [address] Pharmacist Internal Medicine 04/20/23 documented as of this encounter
--- OUTSIDE RECORDS SUMMARY | 2025-01-26 13:33 | XMS_ITS | Encounter Summary ---
Author Organization [employer] Address [address] [place] [address] Care Team Providers Care Foundry Helper Name Role Phone Name, Rolf PARKS Primary Care Provider [phone] Puia, Martine PharmD Unavailable [phone] Puia, Martine PharmD Unavailable Reason for Visit * Reason Comments Med Refill Encounter Details Date Type Department Care Team (Late st Contact Info) Description 07/03/2023 Refill [facility] 230 [place], [place] [phone] Name, MD Rolf 230 [place], [place] [phone] Osteoarthritis of knee, unspecified laterality, unspecified osteoarthritis [...] 03/02/2025 10:00 AM EDT Office Visit [facility] [address] [place] [address] Name, MD Rolf [address] [place] [address] 04/20/2025 11:00 AM EST Telemedicine [address] [address] Karla Lewis, RN documented as of this [...] documented as of this encounter Care Teams Foundry Helper Relationship Specialty Start Date End Date Rolf Gamble MD [address] [place] [address] PCP - General Family Medicine 10/21/17 Martine Broussard, Paulo [address] [place] [address] Pharmacist Internal Medicine 04/20/23 Martine Broussard, Paulo [address] [place] [address] Pharmacist Internal Medicine 04/20/23 08/11/23 documented as of this encounter
--- OUTSIDE RECORDS SUMMARY | 2025-01-26 13:33 | XMS_ITS | Encounter Summary ---
Author Organization [employer] Address [address] [place] [address] Care Team Providers Care Floral Designer Name Role Phone Name, Rolf PARKS Primary Care Provider [phone] Martine Broussard PharmD Unavailable Reason for Visit * Reason Comments Med Refill Encounter Details Date Type Department Care Team (Late st Contact Info) Description 03/21/2024 Refill [facility] 230 [place], [place] [phone] Name, MD Rolf 230 [place] [address] Osteoarthritis of knee, unspecified laterality, unspecified osteoarthritis [...] Description 03/02/2025 10:00 AM EDT Office Visit [address] [address] Name, MD Rolf [address] [place] [address] 04/20/2025 11:00 AM EST Telemedicine [facility] [address] [place] [address] Karla Lewis RN documented as of this [...] documented as of this encounter Care Teams Floral Designer Relationship Specialty Start Date End Date Name, MD Rolf 230 [place] [address] PCP - General Family Medicine 10/21/17 Martine Broussard PharmD 230 [place] [address] Pharmacist Internal Medicine 04/20/23 documented as of this encounter
--- OUTSIDE RECORDS SUMMARY | 2025-01-26 13:33 | XMS_ITS | Encounter Summary ---
Author Organization [employer] Address [address] [place] [address] Care Team Providers Care Stone Lathe Operator Name Role Phone Name, Rolf PARKS Primary Care Provider [phone] Martine Broussard PharmD Unavailable Reason for Visit * Reason Comments Med Refill Encounter Details Date Type Department Care Team (Late st Contact Info) Description 04/24/2024 Refill [facility] 230 [place] [address] Vivian Barajas, ANP 230 [place] [address] Diabetes mellitus type 2 with neurological manifestations [...] Description 03/02/2025 10:00 AM EDT Office Visit [address] [address] Name, MD Rolf [address] [place] [address] 04/20/2025 11:00 AM EST Telemedicine [facility] [address] [place] [address] Karla Lewis, DARYN documented as of this [...] documented as of this encounter Care Teams Stone Lathe Operator Relationship Specialty Start Date End Date Name, MD Rolf 230 [place] [address] PCP - General Family Medicine 10/21/17 Martine Broussard, Paulo 230 [place] [address] Pharmacist Internal Medicine 04/20/23 documented as of this encounter
--- OUTSIDE RECORDS SUMMARY | 2025-01-26 13:33 | XMS_ITS | Encounter Summary ---
Author Organization [employer] Address [address] [place] [address] Care Team Providers Care Copy Chaser Name Role Phone Name, Rolf PARKS Primary Care Provider [phone] Puia, Martine PharmD Unavailable Puia, Martine PharmD Unavailable [phone] Reason for Visit * Reason Comments Med Refill Encounter Details Date Type Department Care Team (Late st Contact Info) Description 07/21/2023 Refill [facility]INE 230 [place], [place] [phone] Name, MD Rolf 230 [place], [place] [phone] Type 2 diabetes mellitus with hyperglycemia, without long-term current use of insulin ([facility]); Iron deficiency anemia, unspecified iron [...] Description 03/02/2025 10:00 AM EDT Office Visit [address] [address] NameRolf MD [address] [place] [address] 04/20/2025 11:00 AM EST Telemedicine [address] [address] Karla Lewis, DARYN documented as of this [...] hyperglycemia, without long-term current use of insulin ([facility]) Iron deficiency anemia, unspecified iron deficiency anemia type documented in this encounter Additional Health Concerns Assessment Noted Time PHQ-9 Depression Total Score: 14 023 1:07 PM EDT documented as of this encounter Care Teams Copy Chaser Relationship Specialty Start Date End Date Rolf Gamble MD [address] [place] [address], [place] [address] PCP - General Family Medicine 10/21/17 Martine Broussard PharmD 230 [place] [address] Pharmacist Internal Medicine 04/20/23 Martine Br[place]ard [place] [address] Pharmacist Internal Medicine 04/20/23 08/11/23 documented as of this encounter
--- OUTSIDE RECORDS SUMMARY | 2025-01-26 13:33 | XMS_ITS | Encounter Summary ---
Author Organization [employer] Address [address] [place] [address] Care Team Providers Care Jailor Name Role Phone Name, Rolf PARKS Primary Care Provider [phone] Martine Broussard PharmD Unavailable Reason for Visit * Reason Comments Med Refill Encounter Details Date Type Department Care Team (Late st Contact Info) Description 10/06/2023 Refill [facility] 230 [place], [place] [phone] Name, MD Rolf 230 [place] [address] Osteoarthritis of knee, unspecified laterality, unspecified osteoarthritis [...] 03/02/2025 10:00 AM EDT Office Visit [address] [address] Name, MD Rolf [address] [place] [address] 04/20/2025 11:00 AM EST Telemedicine [address] [address] Karla Lewis RN documented as of this [...] documented as of this encounter Care Teams Jailor Relationship Specialty Start Date End Date Rolf Gamble MD [address] [place] [address] PCP - General Family Medicine 10/21/17 Puia, Martine, PharmD [address] [place] [address] Pharmacist Internal Medicine 04/20/23 documented as of this encounter
--- OUTSIDE RECORDS SUMMARY | 2025-01-26 13:33 | XMS_ITS | Encounter Summary ---
Author Organization [employer] Address [address] [place] [address] Care Team Providers Care Process Engineering Manager Name Role Phone Name, Rolf PARKS Primary Care Provider [phone] Martine Broussard PharmD Unavailable [phone] Reason for Visit * Reason Comments Med Refill Encounter Details Date Type Department Care Team (Late st Contact Info) Description 03/10/2024 Refill [facility]INE 230 [place], [place] [phone] Name, MD Rolf 230 [place] [address] Osteoarthritis of knee, unspecified laterality, unspecified osteoarthritis [...] Description 03/02/2025 10:00 AM EDT Office Visit [address] [address] Name, MD Rolf [address] [place] [address] 04/20/2025 11:00 AM EST Telemedicine [facility]INE [address] [place] [address] Karla Lewis, DARYN documented as of this [...] as of this encounter Care Teams Process Engineering Manager Relationship Specialty Start Date End Date Name, MD Rolf 230 [place] [address] PCP - General Family Medicine 10/21/17 Martine Broussard, Paulo [address] [place] [address] Pharmacist Internal Medicine 04/20/23 documented as of this encounter
--- OUTSIDE RECORDS SUMMARY | 2025-01-26 13:33 | XMS_ITS | Encounter Summary ---
Author Organization [employer] Address [address] [place] [address] Care Team Providers Care Jacket Preparer Name Role Phone Name, Rolf PARKS Primary Care Provider Martine Broussard PharmD Unavailable Reason for Visit * Reason Comments Med Refill Encounter Details Date Type Department Care Team (Late st Contact Info) Description 04/03/2024 Refill [facility] 230 [place] [address] Vivian Barajas, ANP 230 [place] [address] Diabetes mellitus type 2 with neurological manifestations [...] Description 03/02/2025 10:00 AM EDT Office Visit [address] [address] Name, MD Rolf [address] [place] [address] 04/20/2025 11:00 AM EST Telemedicine [facility]INE [address] [place] [address] Karla Lewis, DARYN documented as of this [...] documented as of this encounter Care Teams Jacket Preparer Relationship Specialty Start Date End Date Name, MD Rolf 230 [place] [address] PCP - General Family Medicine 10/21/17 Martine Broussard, Paulo [address] [place] [address] Pharmacist Internal Medicine 04/20/23 documented as of this encounter
--- OUTSIDE RECORDS SUMMARY | 2025-01-26 13:33 | XMS_ITS | Encounter Summary ---
Author Organization [employer] Address [address] [place] [address] Care Team Providers Care Focusing Machine Operator Name Role Phone Name, Rolf PARKS Primary Care Provider Martine Broussard PharmD Unavailable [phone] Reason for Visit * Reason Comments Med Refill Encounter Details Date Type Department Care Team (Late st Contact Info) Description 03/29/2024 Refill [facility]INE 230 [place] [address] Vivian Barajas, ANP 230 [place] [address] Diabetes mellitus type 2 with neurological manifestations [...] Description 03/02/2025 10:00 AM EDT Office Visit [address] [address] Name, MD Rolf [address] [place] [address] 04/20/2025 11:00 AM EST Telemedicine [facility]INE [address] [place] [address] Karla Lewis, DARYN documented as of this [...] documented as of this encounter Care Teams Focusing Machine Operator Relationship Specialty Start Date End Date Name, MD Rolf 230 [place] [address] PCP - General Family Medicine 10/21/17 Martine Broussard, Paulo [address] [place] [address] Pharmacist Internal Medicine 04/20/23 documented as of this encounter
--- OUTSIDE RECORDS SUMMARY | 2025-01-26 13:33 | XMS_ITS | Encounter Summary ---
Author Organization [employer] Address [address] [place] [address] Care Team Providers Care Director Targeted Marketing Name Role Phone Name, Rolf PARKS Primary Care Provider [phone] Puia, Martine PharmD Unavailable Puia, Martine PharmD Unavailable [phone] Reason for Visit * Reason Comments Med Refill Encounter Details Date Type Department Care Team (Late st Contact Info) Description 05/31/2023 Refill [facility] 230 [place], [place] [phone] Mary Mcguire DO 230 [place], [place] [phone] Osteoarthritis of knee, unspecified laterality, unspecified osteoarthritis [...] 03/02/2025 10:00 AM EDT Office Visit [address] [address] Rolf Gamble MD [address] [place] [address] 04/20/2025 11:00 AM EST Telemedicine [address] [address] Karla Lewis, DARYN documented as of this encounter Goals Goal Patient Goal Type Associated Problems Recent Progress Patient-Stated? Author Hemoglobin A1c < 7 Result Component 8.7( 11:55 AM EDT) No Puia, Mratine, PharmD Record your blood sugar as directed Result Component No Puia, Martine, PharmD documented as of this encounter Visit Diagnoses Diagnosis Osteoarthritis of knee, unspecified laterality, unspecified osteoarthritis type documented in this encounter Additional Health Concerns Assessment Noted Time PHQ-9 Depression Total Score: 14 023 1:07 PM EDT documented as of this encounter Care Teams Director Targeted Marketing Relationship Specialty Start Date End Date Rolf Gamble MD [address] [place] [address] PCP - General Family Medicine 10/21/17 Martine Broussard PharmD 230 [place] [address] Pharmacist Internal Medicine 04/20/23 Martine Broussard PharmD 230 [place] [address] Pharmacist Internal Medicine 04/20/23 08/11/23 documented as of this encounter
--- OUTSIDE RECORDS SUMMARY | 2025-01-26 13:33 | XMS_ITS | Encounter Summary ---
Author Organization [employer] Address [address] [place] [address] Care Team Providers Care Fire Chief Deputy Name Role Phone Name, Rolf PARKS Primary Care Provider [phone] Martine Broussard PharmD Unavailable Reason for Visit * Reason Onset Date Comments Prior Authorization 04/25/2024 Encounter Details Date Type Department Care Team (Late st Contact Info) Description 04/25/2024 Telephone [facility] 230 [place], [place] [phone] Name, MD Rolf 230 [place], [place] [phone] Prior Authorization Social History Tobacco Use Types [...] - 04/25/2024 9:51 AM EST Tc from [facility] pharmacy stating Diclofenac Sodium 1 % gel need a PA. documented in this encounter Plan of Treatment Upcoming Encounters Date Type Department Care Team (Late st Contact Info) Description 03/02/2025 10:00 AM EDT Office Visit [address] [address] Name, MD Rolf [address] [facility] [place] [address] 04/20/2025 11:00 AM EST Telemedicine [facility] [place] [address] Karla Lewis, RN documented as of this [...] documented as of this encounter Care Teams Fire Chief Deputy Relationship Specialty Start Date End Date Name, MD [place] [address] PCP - General Family Medicine 10/21/17 Martine Broussard, [place] [address] Pharmacist Internal Medicine 04/20/23 documented as of this encounter
--- OUTSIDE RECORDS SUMMARY | 2025-01-26 13:34 | XMS_ITS | Encounter Summary ---
Author Organization [employer] Address [address] [place] [address] [place] [address] Care Team Providers Care Money Manager Name Role Phone Name, Rolf PARKS Primary Care Provider [phone] Martine Broussard PharmD Unavailable [phone] Reason for Visit * Reason Onset Date Comments Med Refill 11/16/2023 Encounter Details Date Type Department Care Team (Late st Contact Info) Description 11/16/2023 Telephone [facility]INE 230 [place], [place] [phone] Name, MD Rolf 230 [place], [place] [phone] Med Refill Social History Tobacco Use Types [...] 2 MG tablet [id number] [place] [id number] [facility] documented in this encounter Plan of Treatment Upcoming Encounters Date Type Department Care Team (Late st Contact Info) Description 03/02/2025 10:00 AM EDT Office Visit [facility]INE [address] [place] [address] Name, MD Rolf [address] [place] [address] 04/20/2025 11:00 AM EST Telemedicine [facility]INE [address] [place] [address] Karla Lewis RN documented as of this encounter Goals Goal Patient Goal Type Associated Problems Recent Progress Patient-Stated? Author Hemoglobin A1c < 7 Result Component 8.7( 5 11:55 AM EDT) No Martine Broussard PharmLexi Record your blood sugar as directed Result Component No Martine Broussard PharmD documented as of this encounter Visit Diagnoses Not on filedocumented in this encounter Additional Health Concerns Assessment Noted Time PHQ-9 Depression Total Score: 14 023 1:07 PM EDT documented as of this encounter Care Teams Money Manager Relationship Specialty Start Date End Date Name, MD Rolf 230 [place] [address] PCP - General Family Medicine 10/21/17 Martine Broussard PharmD [address] [place] [address] Pharmacist Internal Medicine 04/20/23 documented as of this encounter
--- OUTSIDE RECORDS SUMMARY | 2025-01-26 13:34 | XMS_ITS | Encounter Summary ---
Author Organization [employer] Address [address] [place] [address] Care Team Providers Care Aircraft Part Assembler Name Role Phone Name, Rolf PARKS Primary Care Provider Martine Broussard PharmD Unavailable [phone] Reason for Visit * Reason Comments Med Refill Encounter Details Date Type Department Care Team (Late st Contact Info) Description 05/24/2024 Refill [facility] MEDICINE 230 [place], [place] [phone] Name, MD Rolf 230 [place] [address] Osteoarthritis of both knees, unspecified osteoarthritis type [...] Description 03/02/2025 10:00 AM EDT Office Visit [address] [address] Name, MD Rolf [address] [place] [address] 04/20/2025 11:00 AM EST Telemedicine [facility] [address] [place] [address] Karla Lewis, DARNY documented as of this encounter Goals Goal [...] as of this encounter Care Teams Aircraft Part Assembler Relationship Specialty Start Date End Date Name, MD Rolf 230 [place] [address] PCP - General Family Medicine 10/21/17 Martine Broussard PharmD 230 [place] [address] Pharmacist Internal Medicine 04/20/23 documented as of this encounter
--- OUTSIDE RECORDS SUMMARY | 2025-01-26 13:34 | XMS_ITS | Encounter Summary ---
Author Organization [employer] Address [address] [place] [address] Care Team Providers Care Recreational Programs Director Name Role Phone Name, Rolf PARKS Primary Care Provider [phone] Martine Broussard PharmD Unavailable [phone] Reason for Visit * Reason Comments Med Refill Encounter Details Date Type Department Care Team (Late st Contact Info) Description 10/06/2024 Refill [facility] 230 [place], [place] [phone] Name, MD Rolf 230 [place], [place] [phone] S/P TKR (total knee replacement), left Social [...] 03/02/2025 10:00 AM EDT Office Visit [address] [address] Name, MD Rolf [address] [place] [address] 04/20/2025 11:00 AM EST Telemedicine [facility]INE [address] [place] [address] Karla Lewis, DARYN documented as of this encounter Goals Goal Patient Goal Type Associated Problems Recent Progress Patient-Stated? Author Hemoglobin A1c < 7 Result Component 8.7( 11:55 AM EDT) No PuiaMartine, PharmD Record your blood sugar as directed Result Component No Lance Broussardyssa, PharmD documented as of this encounter Visit Diagnoses Diagnosis S/P TKR (total knee replacement), left documented in this encounter Additional Health Concerns Assessment Noted Time PHQ-9 Depression Total Score: 0 12/06/19 24 10:09 AM EDT documented as of this encounter Care Teams Recreational Programs Director Relationship Specialty Start Date End Date Name, MD Rolf 230 [place] [address] PCP - General Family Medicine 10/21/17 Martine Broussard, Paulo [address] [place] [address] Pharmacist Internal Medicine 04/20/23 documented as of this encounter
--- OUTSIDE RECORDS SUMMARY | 2025-01-26 13:34 | XMS_ITS | Encounter Summary ---
Author Organization [employer] Address [address] [place] [address] Care Team Providers Care Information Assurance Engineer Name Role Phone Name, Rolf PARKS Primary Care Provider Martine Broussard PharmD Unavailable [phone] Reason for Visit * Reason Comments Med Refill Encounter Details Date Type Department Care Team (Late st Contact Info) Description 05/23/2024 Refill [facility] [address] [place] [address] Felicia Law NP [address] [place] [address] Anxiety Social History Tobacco Use Types Packs/Day [...] Description 03/02/2025 10:00 AM EDT Office Visit [address] [address] Name, MD Rolf [address] [place] [id number] 04/20/2025 11:00 AM EST Telemedicine [address] [address] Karla Lewis, DARYN documented as of this [...] documented as of this encounter Care Teams Information Assurance Engineer Relationship Specialty Start Date End Date Name, MD Rolf [address] [place] [address] PCP - General Family Medicine 10/21/17 Martine Broussard PharmD [address] [place] [address] Pharmacist Internal Medicine 04/20/23 documented as of this encounter
--- OUTSIDE RECORDS SUMMARY | 2025-01-26 13:34 | XMS_ITS | Encounter Summary ---
Author Organization [employer] Address [address] [place] [id number] Care Team Providers Care Shoemaking Finisher Name Role Phone Name, Rolf PARKS Primary Care Provider [phone] Martine Broussard PharmD Unavailable [phone] Reason for Visit * Reason Comments Med Refill Encounter Details Date Type Department Care Team (Late st Contact Info) Description 09/13/2024 Refill [facility] [address] [place], [place] [phone] Name, MD Rolf [address] [place], [place] [phone] S/P TKR (total knee replacement), left Social [...] Description 03/02/2025 10:00 AM EDT Office Visit [address] [address] Name, MD Rolf [address] [place] [address] 04/20/2025 11:00 AM EST Telemedicine [facility] [address] [place] [phone] Krala Lewis, DARYN documented as of this encounter [...] documented as of this encounter Care Teams Shoemaking Finisher Relationship Specialty Start Date End Date Name, MD Rolf [address] [place] [address] PCP - General Family Medicine 10/21/17 Martine Broussard, Paulo [address] [place] [address] Pharmacist Internal Medicine 04/20/23 documented as of this encounter
--- OUTSIDE RECORDS SUMMARY | 2025-01-26 13:34 | XMS_ITS | Encounter Summary ---
Author Organization [employer] Address [address] [place] [address] Care Team Providers Care Insurance And Financial Services Agent Name Role Phone Name, Rolf PARKS Primary Care Provider [phone] Martine Broussard PharmD Unavailable [phone] Reason for Visit * Reason Comments Med Refill Encounter Details Date Type Department Care Team (Late st Contact Info) Description 05/31/2024 Refill [facility] [address] [place], [place] [phone] Name, MD Rolf [address] [place] [address] Osteoarthritis of both knees, unspecified osteoarthritis type [...] Description 03/02/2025 10:00 AM EDT Office Visit [address] [address] Name, MD Rolf [address] [place] [phone] 04/20/2025 11:00 AM EST Telemedicine [facility] [address] [place] [phone] Karla Lewis, DARYN documented as of this [...] documented as of this encounter Care Teams Insurance And Financial Services Agent Relationship Specialty Start Date End Date Name, MD Rolf [address] [place] [address] PCP - General Family Medicine 10/21/17 Martine Broussard PharmD [address] [place] [address] Pharmacist Internal Medicine 04/20/23 documented as of this encounter
--- OUTSIDE RECORDS SUMMARY | 2025-01-26 13:34 | XMS_ITS | Clinical Summary ---
Author Organization [employer] Address [address] [place] [address] [address] [place] [address] Care Team Providers Care Survey Associate Name Role Phone Name, Rolf PARKS Primary Care Provider [phone] Martine Broussard PharmD Unavailable Allergies No known active allergies Medications escitalopram (Lexapro) 10 MG tabletIndications :Depression with anxiety TAKE 1 TABLET(10 MG) BY MOUTH IN THE MORNING 30 tablet 2 023 Active Blood Glucose Monitoring Suppl (ONE TOUCH ULTRA 2) w/Device kitIndications:Ty pe 2 diabetes mellitus with hyperglycemia, without long-term current use of insulin (CMS/[facility]) Use once a day 1 kit 024 Active Spacer/Aero-Holdi ng Chambers device Use daily with MDI 1 each 024 Active albuterol (2.5 MG/3ML) 0.083% nebulizer solution Take 3 mL (2.5 mg) by nebulization every 6 (six) hours if needed for wheezing. 75 mL 11 024 Active atorvastatin (Lipitor) 40 MG tabletIndications :Type 2 diabetes mellitus with hyperglycemia, without long-term current use of insulin (CMS/[facility]) Take 1 tablet (40 mg) by mouth Once per day. 30 tablet 11 024 2024 Active Umeclidinium Winlock (Incruse Ellipta) 62.5 MCG/ACT aerosol powder Inhale 1 Act (62.5 mcg) Once per day. Inhale 1 each in the morning. 30 each 11 12/202024 Active albuterol 108 (90 Base) MCG/ACT inhalerIndication [...] time per week. 2 mL 2024 Active Acetaminophen Extra Strength 500 MG tabletIndications :Osteoarthritis of knee, unspecified laterality, unspecified osteoarthritis type TAKE ONE TABLET BY MOUTH EVERY 8 HOURS NEEDED FOR PAIN (VIAL) 90 tablet Active metFORMIN (Glucophage) 1000 MG tabletIndications :Type 2 diabetes mellitus with hyperglycemia, without long-term current use of insulin ([facility]) TAKE 1 TABLET BY MOUTH TWICE A DAY WITH MORNING AND EVENING MEALS 60 tablet Active glucose blood (BragBetTouch Ultra) test stripIndications: Type 2 diabetes mellitus with hyperglycemia, without long-term current use of insulin ([facility]) USE ONCE DAILY (BULK) 50 strip Active Lancets (OneTouch Delica Plus [id number]) miscIndications:T ype 2 diabetes mellitus with hyperglycemia, without long-term current use of insulin ([facility]) USE ONCE DAILY (BULK) 100 each Active metoprolol succinate XL (Toprol XL) 25 MG 24 hr tablet Take 1 tablet (25 mg) by mouth Once per day. Do not crush or chew. 30 tablet 2025 Active Fluticasone-Salme terol 500-50 MCG/ACT aerosol powderIndications :COPD exacerbation ([facility]) INHALE ONE PUFF BY MOUTH TWICE A DAY (BULK) 60 each Active traZODone (Desyrel) 50 MG tabletIndications :Osteoarthritis of both knees, unspecified osteoarthritis type TAKE ONE TABLET BY MOUTH EVERY EVENING AT BEDTIME (VIAL) 30 tablet 3 025 Active losartan (Cozaar) 25 MG tabletIndications :Chronic HFrEF (heart failure with reduced ejection fraction) ([facility]/HCC) Take 1 tablet (25 mg) by mouth Once per day. 90 tablet 3 025 2025 Active empagliflozin (Jardiance) 25 MG Take 1 tablet (25 mg) by mouth Once per day. 30 tablet 11 025 2025 Active sodium zirconium cyclosilicate (Lokelma) 5 g packetIndications :Hyperkalemia Take 5 g by mouth Once per day. 75 g 1 025 2024 Active ibuprofen 600 MG tablet TAKE ONE TABLET BY MOUTH IF NEEDED IN THE MORNING, AT NOON, AND AT BEDTIME FOR MILD PAIN FOR UP TO 10 DAYS (VIAL) 30 tablet 025 Active clonazePAM (KlonoPIN) 2 MG tabletIndications :Chronic insomnia TAKE ONE TABLET BY MOUTH EVERY EVENING AT BEDTIME NEEDED (VIAL) Do not start before January 08, 2025. 28 tablet 025 Active ferrous sulfate (FeroSul) 325 (65 Fe) MG tabletIndications :Iron deficiency anemia, unspecified iron deficiency anemia type TAKE ONE TABLET BY MOUTH EVERY OTHER DAY (VIAL) 15 tablet 1 025 Active Diclofenac Sodium 1 % gelIndications:Os teoarthritis of knee, unspecified laterality, unspecified osteoarthritis type APPLY 4 GRAMS TOPICALLY TO THE AFFECTED KNEE TWICE A DAY (BULK) 100 g 3 025 Active oxyCODONE-acetami nophen (Percocet) 5-325 MG tabletIndications :S/P TKR (total knee replacement), left TAKE 1 TABLET BY MOUTH EVERY 12 (TWELVE) HOURS IF NEEDED FOR SEVERE PAIN (VIAL) 56 tablet 025 2024 Active gabapentin (Neurontin) 300 MG capsuleIndication s:Chronic pain of both knees TAKE 1 CAPSULE BY MOUTH TWICE A DAY 60 capsule 025 Active Diclofenac Sodium 1 % gelIndications:Os teoarthritis of knee, unspecified laterality, unspecified osteoarthritis type APPLY 4 GRAMS TO THE AFFECTED KNEE TWICE A DAY (BULK) 100 g 3 025 2024 Discontinued clonazePAM (KlonoPIN) 2 MG tabletIndications :Chronic insomnia TAKE ONE TABLET BY MOUTH EVERY EVENING AT BEDTIME NEEDED (VIAL) 28 tablet 025 2024 Discontinued(R eorder (will not trigger notification to Pharmacy)) FeroSul 325 (65 Fe) MG tabletIndications :Iron deficiency anemia, unspecified iron deficiency anemia type TAKE ONE TABLET BY MOUTH EVERY OTHER DAY (VIAL) 15 tablet 1 025 2024 Discontinued(R eorder (will not trigger notification to Pharmacy)) ibuprofen 600 MG tablet TAKE ONE TABLET BY MOUTH IF NEEDED IN THE MORNING, AT NOON, AND AT BEDTIME FOR MILD PAIN FOR UP TO 10 DAYS (VIAL) 30 tablet 025 2024 Discontinued gabapentin (Neurontin) 300 MG capsuleIndication s:Chronic pain of both knees Take 1 capsule (300 mg) by mouth 2 times daily. 60 capsule 025 2024 Discontinued(R eorder (will not trigger notification to Pharmacy)) Active Problems Problem Noted Date Diagnosed Date Long-term current use of opiate analgesic 2024 Chronic HFrEF (heart failure with reduced ejection fraction) 06/09/2024 Overview (06/09/2024): [place] [address] Cardiology Report Signed Patient: Hong Gutierrez MR#: [id number] : 1955 Acct:[id number] Age/Sex: 68 / M ADM Date: 06/07/24 [...] Rate: bpm BP: 110 / 70 mmHg Educational Resource Coordinator: MATTHIAS Referring MD: Rolf Gamble MD Production Underwriter: Beck Cruz MD Symptoms: CARDIOMEGALY I51.7 Study Quality: Adequate with contrast ECG Rhythm: Sinus Conclusions: - 1. Uhog-dl-mqhgvlco LV systolic dysfunction with LVEF of 40-45% [...] 5.90 PHT: 39.00 MVA PHT: 5.64 Decel Montour: 3.60 Aortic Valve AoV Pk Manish: 1.64 [...] knee replacement), left Overview (05/31/2024): 04/28/25 at [facility] Tachycardia 07/20/2023 Assessment & Plan (07/20/2023 2:13 [...] dependence 04/08/2023 ILD (interstitial lung disease) 04/08/2023 Long-term current use of benzodiazepine 01/01/20 23 Chronic low back pain 07/29/2022 Hyperlipidemia 07/29/2022 Knee pain 06/24/2022 Cervical myelopathy 12/17/2017 Anxiety 10/21/2017 Bilateral cataracts 10/21/2017 Diabetes mellitus 10/21/2017 Osteoarthritis of knee 10/21/2017 Assessment & Plan (12/09/2022 5:28 PM EDT): -Acute on chronic knee pain -Continue following with [facility], plan for viscosupplementation once approved through health insurance -Describes pain as severe, not sufficiently responding to APAP and tramadol. -Requesting in office IM toradol. History of resolved GI bleed, reports recent eval through [facility] with endoscopy and colonoscopy that were [...] Encounters Date Type Department Care Team Description 01/26/2025 10:30 AM EDT Telemedicine [facility] [address] [place] [address] Karla Lewis RN Long-term current use of opiate analgesic 01/26/2025 Travel 01/23/2025 Telephone [facility] [address] [place] [address] NameRolf MD Med Refill; Telephone Matthew 01/22/2025 Telephone [facility] [address] [place] [address] NameRolf MD Durable Medical Equipment 01/18/2025 Refill [facility] [address] [place] [address] Rolf Gamble MD Chronic pain of both knees 01/11/2025 Refill [facility] [address] [place] [address] Rolf Gamble MD Chronic insomnia 01/09/2025 Refill [facility] [address] [place] [address] Rolf Gamble MD S/P TKR (total knee replacement), left 01/05/2025 Refill [facility] [address] [place] [address] Rolf Gamble MD Osteoarthritis of knee, unspecified laterality, unspecified osteoarthritis type 01/04/2025 Refill [facility] [address] [place] [address] Rolf Gamble MD Iron deficiency anemia, unspecified iron deficiency anemia type 01/04/2025 Refill [facility] [address] [place] [address] Rolf Gamble MD Chronic insomnia 01/03/2025 Refill [facility] [address] [place] [phone] Rolf Gamble MD 12/20/2024 Telephone [facility] [place] [address] NameRolf MD Med Refill 12/12/2024 Refill [facility] [place] [address] Rolf Gamble MD Osteoarthritis of knee, unspecified laterality, unspecified osteoarthritis type; Iron deficiency anemia, unspecified iron deficiency anemia type 12/12/2024 Refill [facility] [place] [address] Marcela Ruiz NP Chronic insomnia 12/11/[address] [facility] [place] [address] Rolf Gamble MD Chronic pain of both knees 12/05/2024 10:45 AM EDT Office Visit [facility] [place] [address] Rolf Gamble MD Diabetes mellitus type 2 with neurological manifestations ([facility]/HCC) (Primary Dx); Chronic HFrEF (heart failure with reduced ejection fraction) (CMS/HCC); Grief 12/05/2024 Results [address]-Up [address] [place] [address] Rolf Gamble MD POCT Glucose, Basic Metabolic Panel, Basic Metabolic Panel, Basic Metabolic Panel 12/05/2024 Refill [facility] [place] [address] Rolf Gamble MD 12/05/2024 Travel 11/29/2024 10:15 AM EDT Office Visit [facility] [place] [address] Marty Kelly CNP Diabetes mellitus type 2 with neurological manifestations ([facility]/HCC) (Primary Dx); Encounter for wellness examination in adult; Chronic HFrEF (heart failure with reduced ejection fraction) (CMS/HCC); Hyperlipidemia, unspecified hyperlipidemia type; Hypertension, unspecified type 11/29/2024 Travel 11/24/2024 11:00 AM EDT [address]medicine [address] [place] [address] Karla Lewis RN Long-term current use of opiate analgesic; Long-term current use of benzodiazepine 11/24/2024 Telephone [facility] [address] [place] [address] Karla Lewis, RN BPI & RYLEY Scoring 11/24/2024 Travel 11/23/2024 Refill [facility] [address] [place] [address] Rolf Gamble MD S/P TKR (total knee replacement), left 11/22/2024 Patient Outreach [facility] [address] [place] [address] Rolf Gamble MD Pre-visit Planning (SDOH will need to be complete in office. ) 11/22/2024 Telephone [facility] [address] [place] [address] Rolf Gamble MD Durable Medical Equipment 11/21/2024 Refill [facility] [address] [place] [address] Rolf Gamble MD Chronic HFrEF (heart failure with reduced ejection fraction) ([facility]) 11/20/2024 Refill [facility] [address] [place] [address] Rolf Gamble MD S/P TKR (total knee replacement), left 11/20/2024 Telephone [facility] [address] [place] [address] Rolf Gamble MD Med Refill 11/15/2024 Refill [facility] [address] [place] [address] Rolf Gamble MD S/P TKR (total knee replacement), left 11/15/2024 Refill [facility] [address] [place] [address] Rolf Gamble MD Chronic pain of both knees; Osteoarthritis of knee, unspecified laterality, unspecified osteoarthritis type 11/09/2024 Refill [facility] [address] [place] [address] Rolf Gamble MD S/P TKR (total knee replacement), left 10/27/2024 Telephone [facility] [address] [place] [address] Karla Lewis RN Telephone Call 10/26/2024 Telephone [facility] [address] [place] [address] Name, MD Rolf Med Refill; AFC Services (I called regarding a PCP Order Form for AFC services, from a [facility]. I informed Annetta, the patient's emergency contact, that his provider does not feel that he qualifies for AFC services, but he may qualify for INSPECTOR services. She stated that the patient is already receiving AFC services, and that she is his intensive care ambulance paramedic. I informed her that the forms nurse would be notified, and she will contact A [facility], to verify that the patient is already receiving AFC services. She verbalized u) from Last 3 Months Immunizations Immunization Administration Dates Next Due Hep B, adult [...] Sign Reading Time Taken Comments Blood Pressure 136/72 12/05/2024 10:44 AM EDT Pulse 111 12/05/2024 10:44 AM EDT Temperature 36.4 C (97.6 F) 12/05/2024 10:44 AM EDT Respiratory Rate 18 12/05/2024 10:44 AM EDT Oxygen Saturation 95% 12/05/2024 10:44 AM EDT Inhaled Oxygen Concentration - - Weight 88.9 kg (196 lb) 12/05/2024 10:44 AM EDT Height 180.3 cm (5' 11 ) 12/05/2024 10:44 AM EDT Body Mass Index 27.34 12/05/2024 10:44 AM EDT Plan of Treatment Upcoming Encounters Date Type Department Care Team (Late st Contact Info) Description 03/02/2025 10:00 AM EDT Office Visit [facility] [place] [address] Name, MD Rolf [facility] [place] [address] 04/20/2025 11:00 AM EST Telemedicine [facility] [place] [address] Karla Lewis, RN Health Maintenance Due Date Last Done Comments CT Colonography 1955 FIT DNA/Cologuard 1955 FIT 1955 FOBT 1955 Sigmoidoscopy 1955 Hepatitis C Screening 1974 Hepatitis B Vaccines (3 of 3 - 19+ 3-dose series) 02/12/2024 09/10/2023, 08/13/2023 COVID-19 Vaccine (2023- season) 2025 03/06/2024, 04/07/2023, 07/20/2022 Influenza Vaccine (#1) 2025 , 02/10/2023, 07/20/2022, Additional history exists Diabetes: Hemoglobin A1C 03/01/2025 025, 05/31/2024, 03/06/2024, Additional history exists Eye Exam 06/01/2025 06/01/2023, 12/03/2011 Colonoscopy 06/26/2025 06/26/2022, 06/03, 06/18/2022 Colorectal Cancer Screening 06/26/2025 Lipid Panel 08/24/2025 08/24/2024, 12/01, 03/08/2023 Alcohol/Substance Use Screening 11/29/2025 11/29/2024 Depression Screening 11/29/2025 11/29/2024, 11/30/19 Diabetes: Foot Exam 11/29/2025 11/29/2024, 02/10/2023, 02/10/2023, Additional history exists SDOH Screening 11/29/2025 11/29/2024 Diabetes: Urine Protein Screening 12/05/2025 12/05/2024, 12/13/2023, 03/08/2023, Additional history exists Tobacco Screening 12/05/2025 12/05/2024 DTaP/Tdap/Td Vaccines (3 - Td or Tdap) 02/10/2033 02/10/2023, 09/25/2011 Pneumococcal Vaccine: 50+ Years Completed 12/04/2022, 12/25/2011, 10/02/2010 RSV Patients and Patients Aged 60 years or older Completed 04/20/2023 Zoster Vaccines Completed 06/23/2023, 04/20/2023 HIB Vaccines Aged Out No longer eligi [...] directed Result Component No Puia, Martine, PharmD Procedures Procedure Name Priority Date/Time Associated Diagnosis Comments BASIC METABOLIC PANEL Routine 12/15/2024 10:26 AM EDT Hyperkalemia BASIC METABOLIC PANEL Routine 12/06/2024 11:00 AM EDT Hyperkalemia BASIC METABOLIC PANEL Routine 12/05/2024 11:13 AM EDT Diabetes mellitus type 2 with neurological manifestations (CMS/HCC) Chronic HFrEF (heart failure with reduced ejection fraction) (CMS/HCC) Grief ALBUMIN, RANDOM URINE W/CREATININE Routine 12/05/2024 11:13 AM EDT Diabetes mellitus type 2 with neurological manifestations (CMS/HCC) POCT GLUCOSE Routine 12/05/2024 10:47 AM EDT Diabetes mellitus type 2 with neurological manifestations (CMS/HCC) POCT GLYCATED HEMOGLOBIN, TOTAL Routine 11/29/2024 11:55 AM EDT Diabetes mellitus type 2 with neurological manifestations (CMS/HCC) POCT GLUCOSE Routine 11/29/2024 11:54 AM EDT Diabetes mellitus type 2 with neurological manifestations (CMS/HCC) LIPID PANEL, STANDARD Routine 08/24/2024 9:57 AM EDT Diabetes mellitus type 2 with neurological manifestations (CMS/HCC) Chronic pain of both knees Chronic HFrEF (heart failure with reduced ejection fraction) (CMS/HCC) On statin therapy Sinus tachycardia HM COLONOSCOPY Routine 06/26/2022 from Last 3 Months or Most Recently Relevant to Health Maintenance Results * (ABNORMAL) Basic Metabolic Panel (12/15/2024 10:26 AM EDT) Only the most recent of3 resultswithin the time period is included. Sodium 142 135 - 145 mmol/L [facility] Potassium 5.4(H) 3.3 - 5.1 mmol/L [facility] Chloride 104 96 - 108 mmol/L [facility] Carbon Dioxide 28 22 - 29 mmol/L [facility] Anion Gap 15 12 - 20 [facility] Urea Nitrogen (BUN) 19(H) 9 - 16 mg/dL [facility] Creatinine, Serum 1.02 0.5 - 1.4 mg/dL [facility] Estimated Glomerular Filt Rate >60 [facility] Comment:Chronic Kidney Disea se: Estimated GFR < 60 mL/min/[id number] Kidney Disease: Estimated GFR < 15 mL/min/1.73m2 Glucose 170(H) 60 - 115 mg/dL [facility] Calcium 10.0 8.4 - 10.2 mg/dL [facility] Blood Venous blood specimen / Unknown 12/15/2024 10:26 AM EDT 12/15/2024 11:10 AM EDT us Rolf Gamble MD LAB BLOOD ORDERABLES Final Resul t Performing Organization Address [facility] de Phone Number [facility] [address] [place] [phone] * Albumin, Random Urine W/Creatinine (12/05/2024 11:13 AM EDT) Creatinine, Urine 207.82 mg/dL [facility] Microalbumin Urine 54.0 mg/L [facility] Microalbum Creatinine Ratio Ur 25.9 <30 ug/mg cr [facility] Comment:Albumin/Creatinine R atio Reference Ranges: Normal: < 30 ug/mg creatinine Microalbuminuria: 30 - 300 ug/mg creatinineClinical Albuminuria: > 300 ug/mg creatinine Urine (Urine, Random) 12/05/2024 11:13 AM EDT 12/05/2024 1:04 PM EDT Marty Kelly [facility] LAB URINE ORDERABLES Shira l Result Performing Organization Address [facility] de Phone Number [facility] [address] [place] [phone] * (ABNORMAL) POCT Glucose (12/05/2024 10:47 AM EDT) Only the most recent of2 resultswithin the time period is included. Glucose Blood, POC 332(A) 60 - 200 mg/dL QC Media Lot # [id number] Lot# Expiration Date Blood Capillary blood specimen / Unknown 12/05/2024 10:47 AM EDT Result [facility] Rolf Gamble MD POINT OF CARE TEST ENTER/EDIT OR DERABLES Final Result * (ABNORMAL) POCT HGB A1C (11/29/2024 11:55 AM EDT) Hemoglobin A1C 8.7(A) 4.0 - 5.7 % QC Media Lot # [id number] Lot# Expiration Date Blood 11/29/2024 11:5 5 AM EDT [facility] POINT OF CARE TEST ENTER/ EDIT ORDERABLES Final Result * (ABNORMAL) Lipid Panel, Standard (08/24/2024 9:57 AM EDT) Triglycerides 101 <150 mg/dL [facility] Comment:Desirable Triglyceri de: less than 150 mg/dLBorderline High Triglyceride 150-199 mg/dLHigh Triglyceride: 200-499 mg/dLVery High Triglyceride: greater than or equal to 5OO mg/dL Cholesterol 145 <200 mg/dL [facility] Comment:Desirable Cholestero l: less than 200 mg/dLBorderline High Cholesterol: 200-239 mg/dLHigh Cholesterol: greater than 239 mg/dL LDL Cholesterol Calculated 85 <100 mg/dL [facility] Comment:Desirable LDL: less than 100 mg/dLNear Optimal/Above Optimal LDL: 110- 129 mg/dLBorderline High LDL: 130-159 mg/dLHigh LDL: 160-189 mg/dLVery High LDL: greater than or equal to 190 mg/dL HDL Cholesterol 40(L) >40 mg/dL [facility] Comment:Desirable HDL: great er than 40 mg/dL Note: This HDL assay may give artificially low results in patients with liver disease. Blood Venous blood specimen / Unknown 08/24/2024 9:57 AM EDT 08/24/2024 11:19 AM EDT Rolf Gamble MD LAB BLOOD ORDERABLES Final Resul t [facility] [address] [place] [phone] * Hm Colonoscopy (06/26/2022) Colonoscopy PERFORMED Comment:REPEAT IN 3 YEARS us Historical Provider HEALTH MAINTENANCE Final Result from Last 3 Months or Most Recently Relevant to Health Maintenance Insurance [facility] STANDARD [facility] CUSTODIAL OPTIONS (O D-SNP) Care Teams Survey Associate Relationship Specialty Start Date End Date Name, MD Rolf [address] [place] [phone] PCP - General Family Medicine 10/21/17 Martine Broussard, GarrettD [address] [place] [address] [phone] Pharmacist Internal Medicine 04/20/23
--- OUTSIDE RECORDS SUMMARY | 2025-01-26 13:34 | XMS_ITS | Encounter Summary ---
Author Organization [employer] Address [address] [place] [phone] Care Team Providers Care Machine Gun Mechanic Name Role Phone Name, Rolf PARKS Primary Care Provider [phone] Martine Broussard PharmD Unavailable [phone] Reason for Visit * Reason Comments Med Refill Encounter Details Date Type Department Care Team (Late st Contact Info) Description 11/26/2023 Refill [facility] [address] [place], [place] [phone] Vivian Barajas, ANP [address] [place], [place] [phone] Diabetes mellitus type 2 with neurological manifestations ([facility]/HCC) Social History Tobacco Use Types Packs/Day Years [...] Description 03/02/2025 10:00 AM EDT Office Visit [facility] [address] [place] [phone] Name, MD Rolf [address] [place] [phone] 04/20/2025 11:00 AM EST Telemedicine [address] [address] Karla Lewis RN documented as of this [...] as of this encounter Care Teams Machine Gun Mechanic Relationship Specialty Start Date End Date Rolf Gamble MD [address] [place] [phone] PCP - General Family Medicine 10/21/17 Puia, Martine, PharmD [address] [place] [phone] Pharmacist Internal Medicine 04/20/23 documented as of this encounter
--- OUTSIDE RECORDS SUMMARY | 2025-01-26 13:34 | XMS_ITS | Encounter Summary ---
Author Organization [employer] Address [address] [place] [address] Care Team Providers Care Bowl Sander Name Role Phone Name, Rolf PARKS Primary Care Provider [phone] Martine Broussard PharmD Unavailable Reason for Visit * Reason Comments Med Refill Encounter Details Date Type Department Care Team ([facility] st Contact Info) Description 11/17/2023 Refill [facility] [address] [place], [place] [phone] Name, MD Rolf [address] [place] [address] Anxiety Social History Tobacco Use Types Packs/Day [...] 03/02/2025 10:00 AM EDT Office Visit [facility] [address] [place] [phone] Name, MD Rolf [address] [place] [phone] 04/20/2025 11:00 AM EST Telemedicine [address] [address] Karla Lewis, DARYN documented as of this [...] documented as of this encounter Care Teams Bowl Sander Relationship Specialty Start Date End Date Rolf Gamble MD [address] [place] [phone] PCP - General Family Medicine 10/21/17 Puia, Martine, PharmD [address] [place] [phone] Pharmacist Internal Medicine 04/20/23 documented as of this encounter
--- OUTSIDE RECORDS SUMMARY | 2025-01-26 13:34 | XMS_ITS | Encounter Summary ---
Author Organization [employer] Address [address] [place] [address] Care Team Providers Care Licensed Mortician Name Role Phone Name, Rolf PARKS Primary Care Provider [phone] Martine Broussard PharmD Unavailable Reason for Visit * Reason Comments Med Refill Encounter Details Date Type Department Care Team (Late st Contact Info) Description 01/14/2024 Refill [facility] MEDICINE 230 [place], [place] [phone] Name, MD Rolf 230 [place] [address] Anxiety; Osteoarthritis of knee, unspecified laterality, unspecified [...] Description 03/02/2025 10:00 AM EDT Office Visit [facility] [address] [place] [address] Name, MD Rolf [address] [place] [address] 04/20/2025 11:00 AM EST Telemedicine [facility] [address] [place] [address] Karla Lewis, DARYN documented as of this encounter Goals Goal Patient Goal Type Associated Problems Recent Progress Patient-Stated? Author Hemoglobin A1c < 7 Result Component 8.7( 11:55 AM EDT) No PuMartine camarillo, PharmD Record your blood [...] documented as of this encounter Care Teams Licensed Mortician Relationship Specialty Start Date End Date Name, MD Rolf 230 [place] [address] PCP - General Family Medicine 10/21/17 Martine Broussard PharmD 230 [place] [address] Pharmacist Internal Medicine 04/20/23 documented as of this encounter
--- OUTSIDE RECORDS SUMMARY | 2025-01-26 13:34 | XMS_ITS | Encounter Summary ---
Author Organization [employer] Address [address] [place] [address] Care Team Providers Care Security Strategist Name Role Phone Name, Rolf PARKS Primary Care Provider [phone] Martine Broussard PharmD Unavailable [phone] Reason for Visit * Reason Comments Med Refill Encounter Details Date Type Department Care Team (Late st Contact Info) Description 12/24/2023 Refill [facility] MEDICINE 230 [place] [address] Vivian Barajsa, ANP 230 [place] [address] Diabetes mellitus type 2 with neurological manifestations [...] Description 03/02/2025 10:00 AM EDT Office Visit [address] [address] Name, MD Rolf [address] [place] [address] 04/20/2025 11:00 AM EST Telemedicine [address] [address] Karla Lewis, RN documented as of this [...] documented as of this encounter Care Teams Security Strategist Relationship Specialty Start Date End Date Name, MD Rolf 230 [place] [address] PCP - General Family Medicine 10/21/17 Martine Broussard PharmD 230 [place] [address] Pharmacist Internal Medicine 04/20/23 documented as of this encounter
--- OUTSIDE RECORDS SUMMARY | 2025-01-26 13:34 | XMS_ITS | Encounter Summary ---
Author Organization [employer] Address [address] [place] [address] Care Team Providers Care Hand Paint Mixer Name Role Phone Name, Rolf PARKS Primary Care Provider [phone] Martine Broussard PharmD Unavailable Reason for Visit * Reason Onset Date Comments Durable Medical Equipment 01/22/2025 Encounter Details Date Type Department Care Team (Late st Contact Info) Description 01/22/2025 Telephone [facility] MED[facility]INE 230 [place], [place] [phone] Name, MD Rolf 230 [place], [place] [phone] Durable Medical Equipment Social History Tobacco Use [...] * Telephone Encounter - Mandy Strange - 01/22/2025 3:35 PM EDT Please see message below and advise. If agree, please provide dx and notes to support the need for incontinence supplies. Thank you * Telephone Encounter - Margarita Godoy - 01/22/2025 1:58 PM EDT Tc from pt daughter requesting DME order for bed pads Contact at [phone] (lao) documented in this encounter Plan of Treatment Upcoming Encounters Date Type Department Care Team ([facility] st Contact Info) Description 03/02/2025 10:00 AM EDT Office Visit [facility] MEDICINE [address] [place] [address] Name, [place] [address] 04/20/2025 11:00 AM EST Telemedicine [facility] MED[facility]INE [address] [place] [address] Karla Lewis, RN documented as of this [...] documented as of this encounter Care Teams Hand Paint Mixer Relationship Specialty Start Date End Date Name, MD Rolf [address] [place] [address] PCP - General Family Medicine 10/21/17 Martine Broussard, PharmD [address] [place] [address] Pharmacist Internal Medicine 04/20/23 documented as of this encounter
--- OUTSIDE RECORDS SUMMARY | 2025-01-26 13:34 | XMS_ITS | Encounter Summary ---
Author Organization [employer] Address [address] [place] [address] Care Team Providers Care Film And Video Editor Name Role Phone Name, Rolf PARKS Primary Care Provider Martine Broussard PharmD Unavailable Reason for Visit * Reason Comments Med Refill Encounter Details Date Type Department Care Team (Late st Contact Info) Description 01/11/2024 Refill [facility] MEDICINE 230 [place] [address] Vivian Barajas, ANP 230 [place] [address] Diabetes mellitus type 2 with neurological manifestations [...] Description 03/02/2025 10:00 AM EDT Office Visit [address] [address] Name, MD Rolf [address] [place] [address] 04/20/2025 11:00 AM EST Telemedicine [facility] MEDICINE [address] [place] [address] Karla Lewis, DARYN documented as of this [...] documented as of this encounter Care Teams Film And Video Editor Relationship Specialty Start Date End Date Name, MD Rolf 230 [place] [address] PCP - General Family Medicine 10/21/17 Martine Broussard, Paulo 230 [place] [address] Pharmacist Internal Medicine 04/20/23 documented as of this encounter
--- OUTSIDE RECORDS SUMMARY | 2025-01-26 13:34 | XMS_ITS | Encounter Summary ---
Author Organization [employer] Address [address] [place] [address] [place] [address] Care Team Providers Care Court Recording Monitor Name Role Phone Name, Rolf PARKS Primary Care Provider [phone] Martine Broussard PharmD Unavailable Reason for Visit * Reason Onset Date Comments Paperwork/Forms 11/09/2023 Encounter Details Date Type Department Care Team (Late st Contact Info) Description 11/09/2023 Telephone [facility] MEDICINE 230 [place], [place] [phone] Name, MD Rolf 230 [place], [place] [phone] Paperwork/Forms Social History Tobacco Use Types Packs/Day [...] - 11/09/2023 9:20 AM EDT Tc from [place] at [facility] requesting the status of the PCP order Form as well as a copy of the patients physical documented in this encounter Plan of Treatment Upcoming Encounters Date Type Department Care Team (Late st Contact Info) Description 03/02/2025 10:00 AM EDT Office Visit [address] [address] Name, MD Rolf [address] [place] [address] 04/20/2025 11:00 AM EST Telemedicine [address] [address] Karla Lewis, DARYN documented as of this [...] as of this encounter Care Teams Court Recording Monitor Relationship Specialty Start Date End Date Name, MD Rolf 230 [place] [address] PCP - General Family Medicine 10/21/17 Martine Broussard PharmD 230 [place] [address] Pharmacist Internal Medicine 04/20/23 documented as of this encounter
--- OUTSIDE RECORDS SUMMARY | 2025-01-26 13:34 | XMS_ITS | Encounter Summary ---
Author Organization [employer] Address [address] [place] [address] Care Team Providers Care Marine Services Technician Name Role Phone Name, Rolf PARKS Primary Care Provider [phone] Martine Broussard PharmD Unavailable [phone] Reason for Visit * Reason Comments Med Refill Encounter Details Date Type Department Care Team (Late st Contact Info) Description 11/09/2024 Refill [facility] MEDICINE 230 [place], [place] [phone] Name, MD Rolf 230 [place], [place] [phone] S/P TKR (total knee replacement), left Social [...] 03/02/2025 10:00 AM EDT Office Visit [address] [address] Name, MD Rolf [address] [place] [address] 04/20/2025 11:00 AM EST Telemedicine [facility] MEDICINE [address] [place] [address] Karla Lewis, DARYN documented as of this [...] documented as of this encounter Care Teams Marine Services Technician Relationship Specialty Start Date End Date Name, MD Rolf 230 [place] [address] PCP - General Family Medicine 10/21/17 Martine Broussard, Paulo 230 [place] [address] Pharmacist Internal Medicine 04/20/23 documented as of this encounter
--- OUTSIDE RECORDS SUMMARY | 2025-01-26 13:34 | XMS_ITS | Encounter Summary ---
Author Organization [employer] Address [address] [place] [address] Care Team Providers Care Production Operations Manager Name Role Phone Name, Rolf PARKS Primary Care Provider Martine Broussard PharmD Unavailable Reason for Visit * Reason Comments Med Refill Encounter Details Date Type Department Care Team (Late st Contact Info) Description 11/26/2023 Refill [facility] MED[facility]INE 230 [place], [place] [phone] Vivian Barajas, ANP 230 [place], [place] [phone] Diabetes mellitus type 2 with neurological manifestations ([facility]/HCC) Social History Tobacco Use Types Packs/Day [...] [facility] [address] [place] [address] Name, MD Rolf [address] [place] [address] 04/20/2025 11:00 AM EST Telemedicine [address] [address] Karla Lewis RN documented as of this [...] documented as of this encounter Care Teams Production Operations Manager Relationship Specialty Start Date End Date Rolf Gamble MD [address] [place] [address] PCP - General Family Medicine 10/21/17 Puia, Martine, PharmD [address] [place] [address] Pharmacist Internal Medicine 04/20/23 documented as of this encounter
--- OUTSIDE RECORDS SUMMARY | 2025-01-26 13:34 | XMS_ITS | Encounter Summary ---
Author Organization [employer] Address [address] [place] [address] Care Team Providers Care Small Business Sales Representative Name Role Phone Name, Rolf PARKS Primary Care Provider [phone] Martine Broussard PharmD Unavailable [phone] Reason for Visit * Reason Comments Med Refill Encounter Details Date Type Department Care Team (Late st Contact Info) Description 2023 Refill [facility] MED[facility]INE 230 [place] [address] Vivian Barajas, ANP 230 [place] [address] Diabetes mellitus type 2 with neurological manifestations [...] Description 03/02/2025 10:00 AM EDT Office Visit [address] [address] Name, MD Rolf [address] [place] [address] 04/20/2025 11:00 AM EST Telemedicine [address] [address] Karla Lewis, RN documented as of this [...] of this encounter Care Teams Small Business Sales Representative Relationship Specialty Start Date End Date Name, MD Rolf 230 [place] [address] PCP - General Family Medicine 10/21/17 Martine Broussard PharmD 230 [place] [address] Pharmacist Internal Medicine 04/20/23 documented as of this encounter
--- OUTSIDE RECORDS SUMMARY | 2025-01-26 13:34 | XMS_ITS | Encounter Summary ---
Author Organization [employer] Address [address] [place] [address] Care Team Providers Care Director Of Compliance Name Role Phone Name, Rolf PARKS Primary Care Provider Martine Broussard PharmD Unavailable [phone] Reason for Visit * Reason Comments Med Refill Encounter Details Date Type Department Care Team (Late st Contact Info) Description 02/02/2024 Refill [facility] MEDICINE 230 [place] [address] Vivian Barajas, ANP 230 [place] [address] Diabetes mellitus type 2 with neurological manifestations [...] Description 03/02/2025 10:00 AM EDT Office Visit [address] [address] Name, MD Rolf [address] [place] [address] 04/20/2025 11:00 AM EST Telemedicine [facility] MEDICINE [address] [place] [address] Karla Lewis, DARYN documented as of this [...] of this encounter Care Teams Director Of Compliance Relationship Specialty Start Date End Date Name, MD Rolf 230 [place] [address] PCP - General Family Medicine 10/21/17 Martine Broussard, Paulo [address] [place] [address] Pharmacist Internal Medicine 04/20/23 documented as of this encounter
--- OUTSIDE RECORDS SUMMARY | 2025-01-26 13:34 | XMS_ITS | Encounter Summary ---
Author Organization [employer] Address [address] [place] [address] Care Team Providers Care Clinical Science Liaison Name Role Phone Name, Rolf PARKS Primary Care Provider [phone] Martine Broussard PharmD Unavailable Reason for Visit * Reason Comments Med Refill Encounter Details Date Type Department Care Team ([facility] st Contact Info) Description 11/19/2023 Refill [facility] MEDICINE 230 [place], [place] [phone] Name, MD Rolf 230 [place] [address] Anxiety Social History Tobacco Use Types Packs/Day [...] Description 03/02/2025 10:00 AM EDT Office Visit [facility] MEDICINE [address] [place] [address] Name, MD Rolf [address] [place] [address] 04/20/2025 11:00 AM EST Telemedicine [address] [address] Karla Lewis, DARYN documented as of this [...] as of this encounter Care Teams Clinical Science Liaison Relationship Specialty Start Date End Date Rolf Gamble MD [address] [place] [address] PCP - General Family Medicine 10/21/17 Puia, Martine, PharmD [address] [place] [address] Pharmacist Internal Medicine 04/20/23 documented as of this encounter
--- OUTSIDE RECORDS SUMMARY | 2025-01-26 13:34 | XMS_ITS | Encounter Summary ---
Author Organization [employer] Address [address] [place] [address] Care Team Providers Care Supervisor Fusing Room Name Role Phone Name, Rolf PARKS Primary Care Provider [phone] Martine Broussard PharmD Unavailable Reason for Visit * Reason Onset Date Comments Nurse Triage 11/16/2023 Encounter Details Date Type Department Care Team (Late st Contact Info) Description 11/16/2023 Telephone [facility] MEDICINE 230 [place], [place] [phone] Name, MD Rolf 230 [place], [place] [phone] Nurse Triage Social History Tobacco Use Types [...] Back pain. Daughter advised of disposition, offered [facility] today. Daughter declines only wants pt seen by PCP. Advised nothing sooner than already booked follow up in December. Per daughter was told Dr. Gamble would be at [facility] on 11/23. Advised unable to guarantee [...] Description 03/02/2025 10:00 AM EDT Office Visit [facility] [address] [place] [address] Name, MD Rolf [address] [place] [address] 04/20/2025 11:00 AM EST Telemedicine [address] [address] Karla Lewis, DARYN documented as of this [...] Noted Time PHQ-9 Depression Total Score: 14 07/20/ 023 1:07 PM EDT documented as of this encounter Care Teams Supervisor Fusing Room Relationship Specialty Start Date End Date Name, MD Rolf [address] [place] [address] PCP - General Family Medicine 10/21/17 Puia, Martine, PharmD [address] [place] [address] Pharmacist Internal Medicine 04/20/23 documented as of this encounter
--- OUTSIDE RECORDS SUMMARY | 2025-01-26 13:34 | XMS_ITS | Encounter Summary ---
Author Organization [employer] Address [address] [place] [address] Care Team Providers Care Chamber Walker Name Role Phone Tye, Rolf PARKS Primary Care Provider [phone] Martine Broussard PharmD Unavailable [phone] Reason for Visit * Reason Comments Med Refill Encounter Details Date Type Department Care Team ([facility] st Contact Info) Description 01/11/2025 Refill [facility] 230 [place], [place] [phone] Name, MD Rolf 230 [place] [address] Chronic insomnia Social History Tobacco Use Types [...] Description 03/02/2025 10:00 AM EDT Office Visit [address] [address] Name, MD Rolf [address] [place] [address] 04/20/2025 11:00 AM EST Telemedicine [address] [address] Karla Lewis, DARYN documented as of this [...] documented as of this encounter Care Teams Chamber Walker Relationship Specialty Start Date End Date Name, MD Rolf [address] [place] [address] PCP - General Family Medicine 10/21/17 Martine Broussard, Paulo [address] [place] [address] Pharmacist Internal Medicine 04/20/23 documented as of this encounter
--- OUTSIDE RECORDS SUMMARY | 2025-01-26 13:34 | XMS_ITS | Encounter Summary ---
Author Organization [employer] Address [address] [place] [address] Care Team Providers Care Used Car Renovator Name Role Phone Name, Rolf PARKS Primary Care Provider [phone] Martine Broussard PharmD Unavailable [phone] Reason for Visit * Reason Onset Date Comments Call Back Request 12/15/2023 Encounter Details Date Type Department Care Team ([facility] st Contact Info) Description 12/15/2023 Telephone [facility] MEDICINE 230 [place], [place] [phone] Name, MD Rolf 230 [place], [place] [phone] Call Back Request Social History Tobacco Use [...] call to alan Littlejohn provided by Josefina Oewns, daughter stated that PCP was going to [...] Description 03/02/2025 10:00 AM EDT Office Visit [facility] MEDICINE [address] [place] [address] Name, MD Rolf [address] [place] [address] 04/20/2025 11:00 AM EST Telemedicine [facility] MEDICINE [address] [place] [address] Karla Lewis, RN documented as of this [...] documented as of this encounter Care Teams Used Car Renovator Relationship Specialty Start Date End Date Name, MD Rolf [address] [place] [address] PCP - General Family Medicine 10/21/17 Martine Broussard, PharmD [address] [place] [address] Pharmacist Internal Medicine 04/20/23 documented as of this encounter
--- OUTSIDE RECORDS SUMMARY | 2025-01-26 13:34 | XMS_ITS | Encounter Summary ---
Author Organization [employer] Address [address] [place] [address] Care Team Providers Care Barrel Planer Name Role Phone Name, Rolf PARKS Primary Care Provider Martine Broussard PharmD Unavailable [phone] Reason for Visit * Reason Comments Med Refill Encounter Details Date Type Department Care Team (Late st Contact Info) Description 11/15/2024 Refill [facility] MEDICINE 230 [place], [place] [phone] Name, MD Rolf 230 [place] [address] Chronic pain of both knees; Osteoarthritis of [...] 03/02/2025 10:00 AM EDT Office Visit [address] [address] Name, MD Rolf [address] [place] [address] 04/20/2025 11:00 AM EST Telemedicine [facility] MEDICINE [address] [place] [address] Karla Lewis RN documented as of this encounter Goals Goal Patient Goal Type Associated Problems Recent Progress Patient-Stated? Author Hemoglobin A1c < 7 Result Component 8.7( 11:55 AM EDT) No PuiaLanceMartine, PharmD Record your blood sugar as directed Result Component No Martine Broussard, PharmD documented as of this encounter Visit Diagnoses Diagnosis Chronic pain of both knees Osteoarthritis of knee, unspecified laterality, unspecified osteoarthritis type documented in this encounter Additional Health Concerns Assessment Noted Time PHQ-9 Depression Total Score: 0 12/06/19 24 10:09 AM EDT documented as of this encounter Care Teams Barrel Planer Relationship Specialty Start Date End Date Name, MD Rolf [address] [place] [address] PCP - General Family Medicine 10/21/17 Martine Broussard PharmD [address] [place] [address] Pharmacist Internal Medicine 04/20/23 documented as of this encounter
--- OUTSIDE RECORDS SUMMARY | 2025-01-26 13:34 | XMS_ITS | Encounter Summary ---
Author Organization [employer] Address [address] [place] [address] Care Team Providers Care Mushroom Cutter Name Role Phone Name, Rolf PARKS Primary Care Provider [phone] Martine Broussard PharmD Unavailable Reason for Visit * Reason Comments Med Refill Encounter Details Date Type Department Care Team (Late st Contact Info) Description 12/16/2023 Refill [facility] MEDICINE 230 [place], [place] [phone] Name, MD Rolf 230 [place] [address] Osteoarthritis of knee, unspecified laterality, unspecified osteoarthritis [...] 03/02/2025 10:00 AM EDT Office Visit [address] [address] Name, MD Rolf [address] [place] [address] 04/20/2025 11:00 AM EST Telemedicine [address] [address] Karla Lewis, DARYN documented as of this [...] documented as of this encounter Care Teams Mushroom Cutter Relationship Specialty Start Date End Date Name, MD Rolf 230 [place] [address] PCP - General Family Medicine 10/21/17 Martine Broussard, Paulo [address] [place] [address] Pharmacist Internal Medicine 04/20/23 documented as of this encounter
--- OUTSIDE RECORDS SUMMARY | 2025-01-26 13:34 | XMS_ITS | Encounter Summary ---
Author Organization [id number] Address [address] [place] [address] Care Team Providers Care Admitting Clerk Name Role Phone Name, Rolf PARKS Primary Care Provider [phone] Martine Broussard PharmD Unavailable [phone] Reason for Visit * Reason Comments Med Refill Encounter Details Date Type Department Care Team (Late st Contact Info) Description 12/08/[address] [facility] MEDICINE 230 [place], [place] [phone] Name, MD Rolf 230 [place] [address] Anxiety; Chronic pain of left knee Social [...] Description 03/02/2025 10:00 AM EDT Office Visit [address] [address] Name, MD Rolf [address] [place] [address] 04/20/2025 11:00 AM EST Telemedicine [address] [address] Karla Lewis, DARYN documented as of this [...] documented as of this encounter Care Teams Admitting Clerk Relationship Specialty Start Date End Date Name, MD Rolf 230 [place] [address] PCP - General Family Medicine 10/21/17 Martine Broussard PharmD 230 [place] [address] Pharmacist Internal Medicine 04/20/23 documented as of this encounter
--- OUTSIDE RECORDS SUMMARY | 2025-01-26 13:34 | XMS_ITS | Encounter Summary ---
Author Organization [employer] Address [address] [place] [address] Care Team Providers Care Guest Services Name Role Phone Name, Rolf PARKS Primary Care Provider [phone] Martine Broussard PharmD Unavailable [phone] Reason for Visit * Reason Comments Med Refill Encounter Details Date Type Department Care Team (Late st Contact Info) Description 11/02/2023 Refill [facility] MEDICINE 230 [place], [place] [phone] Name, MD Rolf 230 [place] [address] Anxiety; Chronic pain of left knee Social [...] Description 03/02/2025 10:00 AM EDT Office Visit [address] [address] Name, MD Rolf [address] [place] [address] 04/20/2025 11:00 AM EST Telemedicine [address] [address] Karla Lewis RN documented as of this [...] documented as of this encounter Care Teams Guest Services Relationship Specialty Start Date End Date Name, MD Rolf [address] [place] [address] PCP - General Family Medicine 10/21/17 PuiaLanceMartine, PharmD [address] [place] [address] Pharmacist Internal Medicine 04/20/23 documented as of this encounter
--- OUTSIDE RECORDS SUMMARY | 2025-01-26 13:34 | XMS_ITS | Encounter Summary ---
Author Organization [employer] Address [address] [place] [address] [place] [address] Care Team Providers Care Assistance Representative Name Role Phone Name, Rolf PARKS Primary Care Provider [phone] Martine Broussard PharmD Unavailable [phone] Reason for Visit * Reason Onset Date Comments Med Refill 11/24/2023 Encounter Details Date Type Department Care Team (Late st Contact Info) Description 11/24/2023 Telephone [facility] [address] [place], [place] [phone] Name, MD Rolf 230 [place], [place] [phone] Med Refill Social History Tobacco Use Types [...] 10:44 AM EDT Medication was sent to [facility] #[id number] on 10/21/23 #30 with 1 refill. * Telephone Encounter - Nela Whalen - 11/24/2023 10:42 AM EDT TC from pt requesting medication refill. Medications needing refill : traZODone (Desyrel) 50 MG tablet To be sent to: [facility] #[id number] [place] [id number] SHAUN MCDONOUGH AT [facility] documented in this encounter Plan of Treatment Upcoming Encounters Date Type Department Care Team (Late st Contact Info) Description 03/02/2025 10:00 AM EDT Office Visit [facility] [address] [place] [address] Name, MD Rolf [address] [place] [address] 04/20/2025 11:00 AM EST Telemedicine [facility] [address] [place] [address] Karla Lewis RN documented as of this encounter Goals Goal Patient Goal Type Associated Problems Recent Progress Patient-Stated? Author Hemoglobin A1c < 7 Result Component 8.7( 5 11:55 AM EDT) No Martine Broussard PharmD Record your blood sugar as directed Result Component No Martine Broussard PharmD documented as of this encounter Visit Diagnoses Not on filedocumented in this encounter Additional Health Concerns Assessment Noted Time PHQ-9 Depression Total Score: 14 023 1:07 PM EDT documented as of this encounter Care Teams Assistance Representative Relationship Specialty Start Date End Date Name, MD Rolf 230 [place] [address] PCP - General Family Medicine 10/21/17 Martine Broussard PharmD 230 [place] [address] Pharmacist Internal Medicine 04/20/23 documented as of this encounter
--- OUTSIDE RECORDS SUMMARY | 2025-01-26 13:34 | XMS_ITS | Encounter Summary ---
Author Organization [employer] Address [address] [place] [address] Care Team Providers Care Information Assurance Specialist Name Role Phone Name, Rolf PARKS Primary Care Provider [phone] Martine Broussard PharmD Unavailable [phone] Encounter Details Date Type Department Care Team ([facility] st Contact Info) Description 08/31/2024 Telephone [facility] MEDICINE 230 [place], [place] [phone] Name, MD Rolf 230 [place] [address] Social History Tobacco Use Types Packs/Day Years [...] the past 12 months, has t he [employer] gas, oil or water company threatened to [...] Description 03/02/2025 10:00 AM EDT Office Visit [address] [address] Name, MD Rolf [address] [place] [address] 04/20/2025 11:00 AM EST Telemedicine [address] [address] Karla Lewis, DARYN documented as of this [...] of this encounter Care Teams Information Assurance Specialist Relationship Specialty Start Date End Date Name, MD Rolf 230 [place] [address] PCP - General Family Medicine 10/21/17 Martine Broussard, GarrettD 230 [place] [address] Pharmacist Internal Medicine 04/20/23 documented as of this encounter
--- OUTSIDE RECORDS SUMMARY | 2025-01-26 13:34 | XMS_ITS | Encounter Summary ---
Author Organization [employer] Address [address] [place] [address] Care Team Providers Care Director Social Welfare Name Role Phone Tye, Rolf PARKS Primary Care Provider [phone] Martine Broussard PharmD Unavailable [phone] Reason for Visit * Reason Comments Med Refill Encounter Details Date Type Department Care Team (Late st Contact Info) Description 12/06/2023 Refill [facility] 230 [place], [place] [phone] Name, MD Rolf 230 [place] [address] Anxiety; Chronic pain of left knee Social [...] this encounter Functional Status * Over the past 2 weeks, how often have you been bothered by any of the following problems? Question Answer Date of Assessment Author Patient Health Questionnaire -2 Score 0 12/06/2023 10:09 AM Ewdard Moses * Over the past 2 weeks, how often have you been bothered by any of the following problems? Question Answer Date of Assessment Author Little interest or pleasure in doing things Not at all 12/06/2023 10:09 AM Edward Moses Feeling down, depressed, or hopeless Not at all 12/06/2023 10:09 AM Edward Moses Trouble falling or staying asleep, or sleeping too much Not at all 12/06/2023 10:09 AM Ruth Miner Feeling tired or having lopez le energy Not at all 12/06/2023 10:09 AM Edward Moses Poor appetite or overeating Not at all 12/06/2023 10 :09 AM Ruth Moses Feeling bad about yourself - or that you are a failure or have let yourself or your family down Not at all 12/06/2023 10:09 AM EDT Edward Doyle Trouble concentrating on things, such as reading the newspaper or watching television Not at all 12/06/2023 10:09 AM EDT Edward Doyle Moving or speaking so slowly that other people could have noticed? Or the opposite - being so fidgety or restless that you have been moving around a lot more than usual. Not at all 12/06/2023 10:09 AM EDT Ruth Sanchez Thoughts that you would be better off or hurting yourself in some way Not at all 12/06/2023 10:09 AM EDT Xochilt Doyle Patient Health Questionnaire -9 Score 0 12/06/2023 10:09 AM EDT Edward Doyle documented as of this encounter Plan of Treatment Upcoming Encounters Date Type Department Care Team (Late st Contact Info) Description 03/02/2025 10:00 AM EDT Office Visit [facility] [address] [place] [address] Name, MD Rolf [address] [place] [address] 04/20/2025 11:00 AM EST Telemedicine [address] [address] Karla Lewis RN documented as of this [...] as of this encounter Care Teams Director Social Welfare Relationship Specialty Start Date End Date Rolf Gamble MD [address] [place] [address] PCP - General Family Medicine 10/21/17 PuiaLanceMartine, PharmD 230 [place] [address] Pharmacist Internal Medicine 04/20/23 documented as of this encounter
--- OUTSIDE RECORDS SUMMARY | 2025-01-26 13:34 | XMS_ITS | Encounter Summary ---
Author Organization [employer] Address [address] [place] [address] Care Team Providers Care Historical Society Director Name Role Phone Tye, Rolf PARKS Primary Care Provider [phone] Martine Broussard PharmD Unavailable [phone] Reason for Visit * Reason Comments Med Refill Encounter Details Date Type Department Care Team ([facility] st Contact Info) Description 10/15/2024 Refill [facility] MED[facility]INE 230 [place], [place] [phone] Name, MD Rolf 230 [place] [address] Chronic insomnia Social History Tobacco Use Types [...] 03/02/2025 10:00 AM EDT Office Visit [address] [address] Name, MD Rolf [address] [place] [address] 04/20/2025 11:00 AM EST Telemedicine [address] [address] Karla Lewis, DARYN documented as of this [...] documented as of this encounter Care Teams Historical Society Director Relationship Specialty Start Date End Date Name, MD Rolf 230 [place] [address] PCP - General Family Medicine 10/21/17 Martine Broussard, Paulo 230 [place] [address] Pharmacist Internal Medicine 04/20/23 documented as of this encounter
--- OUTSIDE RECORDS SUMMARY | 2025-01-26 13:34 | XMS_ITS | Encounter Summary ---
Author Organization [employer] Address [address] [place] [address] Care Team Providers Care Contact Center Analyst Name Role Phone Name, Rolf PARKS Primary Care Provider Martine Broussard PharmD Unavailable [phone] Reason for Visit * Reason Comments Med Refill Encounter Details Date Type Department Care Team (Late st Contact Info) Description 11/08/2023 Refill [facility] MED[facility]INE 230 [place], [place] [phone] Name, MD Rolf 230 [place] [address] Anxiety; Chronic pain of left knee Social [...] Description 03/02/2025 10:00 AM EDT Office Visit [address] [address] Name, MD Rolf [address] [place] [address] 04/20/2025 11:00 AM EST Telemedicine [address] [address] Karla Lewis RN documented as of this [...] documented as of this encounter Care Teams Contact Center Analyst Relationship Specialty Start Date End Date Name, MD Rolf [address] [place] [address] PCP - General Family Medicine 10/21/17 PuiaLanceMartine, PharmD [address] [place] [address] Pharmacist Internal Medicine 04/20/23 documented as of this encounter
--- OUTSIDE RECORDS SUMMARY | 2025-01-26 13:35 | XMS_ITS | Encounter Summary ---
Author Organization [employer] Address [address] [place] [address] 7 [place] [address] Care Team Providers Care Pig Farm Manager Name Role Phone Name, Rolf PARKS Primary Care Provider [phone] Martine Broussard PharmD Unavailable [phone] Encounter Details Date Type Department Care Team (Latest Contact Info) Description 01/26/2025 Travel Social History Tobacco Use Types Packs/Day [...] Description 03/02/2025 10:00 AM EDT Office Visit [facility] [address] [place] [address] NameRolf MD [address] [place] [address] 04/20/2025 11:00 AM EST Telemedicine [address] [address] Karla Lewis, RN documented as of this [...] documented as of this encounter Care Teams Pig Farm Manager Relationship Specialty Start Date End Date Rolf Gamble MD [address] [place] [address] PCP - General Family Medicine 10/21/17 Martine Broussard, GarrettD [address] [place] [address] Pharmacist Internal Medicine 04/20/23 documented as of this encounter
--- OUTSIDE RECORDS SUMMARY | 2025-01-26 13:35 | XMS_ITS | Encounter Summary ---
Author Organization [employer] Address [address] [place] [address] Care Team Providers Care Nurse Orthopedic Name Role Phone Name, Rolf PARKS Primary Care Provider [phone] Martine Broussard PharmD Unavailable [phone] Reason for Visit * Reason Comments Med Refill Encounter Details Date Type Department Care Team ([facility] st Contact Info) Description 12/12/[address] [facility]INE 230 [place] [address] Marcela Ruiz NP 230 [place] [address] Chronic insomnia Social History Tobacco Use Types [...] Description 03/02/2025 10:00 AM EDT Office Visit [address] [address] Name, MD Rolf [address] [place] [address] 04/20/2025 11:00 AM EST Telemedicine [address] [address] Karla Lewis, DARYN documented as of this [...] documented as of this encounter Care Teams Nurse Orthopedic Relationship Specialty Start Date End Date Name, MD Rolf 230 [place] [address] PCP - General Family Medicine 10/21/17 Martine Broussard, Paulo 230 [place] [address] Pharmacist Internal Medicine 04/20/23 documented as of this encounter
--- OUTSIDE RECORDS SUMMARY | 2025-01-26 13:35 | XMS_ITS | Encounter Summary ---
Author Organization [employer] Address [address] [place] [address] Care Team Providers Care Butadiene Compressor Operator Name Role Phone Name, Rolf PARKS Primary Care Provider [phone] Puia, Martine PharmD Unavailable Puia, Martine PharmD Unavailable [phone] Reason for Visit * Reason Comments Med Refill Encounter Details Date Type Department Care Team (Late st Contact Info) Description 05/31/2023 Refill [facility] & PEDS [address] [place] [address] Delisa Hilliard MD 230 [place] [address] Osteoarthritis of knee, unspecified laterality, unspecified osteoarthritis [...] 03/02/2025 10:00 AM EDT Office Visit [address] [address] NameRolf MD [address] [place] [address] 04/20/2025 11:00 AM EST Telemedicine [address] [address] Karla Lewis, DARYN documented as of this [...] documented as of this encounter Care Teams Butadiene Compressor Operator Relationship Specialty Start Date End Date Rolf Gamble MD [address] [place] [address] PCP - General Family Medicine 10/21/17 Martine Broussard PharmD 230 [place] [address] Pharmacist Internal Medicine 04/20/23 Martine Broussard PharmD 230 [place] [address] Pharmacist Internal Medicine 04/20/23 08/11/23 documented as of this encounter
--- OUTSIDE RECORDS SUMMARY | 2025-01-26 13:35 | XMS_ITS | Encounter Summary ---
Author Organization [employer] Address [address] [place] [address] Care Team Providers Care Fashion Journalist Name Role Phone Name, Rolf PARKS Primary Care Provider [phone] Martine Broussard PharmD Unavailable Reason for Visit * Reason Comments Med Refill Encounter Details Date Type Department Care Team (Late st Contact Info) Description 01/18/2024 Refill [facility] MED[facility]INE 230 [place], [place] [phone] Name, MD Rolf 230 [place] [address] Iron deficiency anemia, unspecified iron deficiency anemia [...] Description 03/02/2025 10:00 AM EDT Office Visit [facility] [address] [place] [address] Name, MD Rolf [address] [place] [address] 04/20/2025 11:00 AM EST Telemedicine [facility] [address] [place] [address] Karla Lewis RN documented as of this [...] documented as of this encounter Care Teams Fashion Journalist Relationship Specialty Start Date End Date Name, MD Rolf 230 [place] [address] PCP - General Family Medicine 10/21/17 Martine Broussard PharmD 230 [place] [address] Pharmacist Internal Medicine 04/20/23 documented as of this encounter
--- OUTSIDE RECORDS SUMMARY | 2025-01-26 13:35 | XMS_ITS | Encounter Summary ---
Author Organization [employer] Address [address] [place] [address] Care Team Providers Care Audit Intern Name Role Phone Name, Rolf PARKS Primary Care Provider [phone] Martine Broussard PharmD Unavailable [phone] Reason for Visit * Reason Onset Date Comments Med Refill 07/27/2024 Encounter Details Date Type Department Care Team (Late st Contact Info) Description 07/27/2024 Telephone [facility] MEDICINE 230 [place], [place] [phone] Name, MD Rolf 230 [place], [place] [phone] Med Refill Social History Tobacco Use Types [...] 5-325 MG tablet To be sent to: [facility] #[id number] [place] [id number] SHAUN MCDONOUGH [facility] documented in this encounter Plan of Treatment Upcoming Encounters Date Type Department Care Team (Late st Contact Info) Description 03/02/2025 10:00 AM EDT Office Visit [facility] MED[facility]INE [address] [place] [address] Name, MD Rolf 230 [place] [address] 04/20/2025 11:00 AM EST Telemedicine [facility] 230 [place] [address] Karla Lewis, DARYN documented as of this [...] documented as of this encounter Care Teams Audit Intern Relationship Specialty Start Date End Date Name, MD Rolf [address] [place] [address] PCP - General Family Medicine 10/21/17 Martine Broussard, PharmD [address] [place] [address] Pharmacist Internal Medicine 04/20/23 documented as of this encounter
--- OUTSIDE RECORDS SUMMARY | 2025-01-26 13:35 | XMS_ITS | Encounter Summary ---
Author Organization [employer] Address [address] [place] [address] 7 [place] [address] Care Team Providers Care Sub Assembly Team Worker Name Role Phone Name, Rolf PARKS Primary Care Provider [phone] Martine Broussard PharmD Unavailable Reason for Visit * Reason Comments Med Refill Encounter Details Date Type Department Care Team (Late st Contact Info) Description 07/27/2024 Refill [facility] [address] [place] [address] Name, MD Rolf 230 [place] [address] Osteoarthritis of knee, unspecified laterality, unspecified osteoarthritis [...] Upcoming Encounters Date Type Department Care Team ([facility] st Contact Info) Description 03/02/2025 10:00 AM EDT Office Visit [address] [address] Name, MD Rolf [address] [place] [address] 04/20/2025 11:00 AM EST Telemedicine [facility] MEDICINE [address] [place] [address] Karla Lewis RN documented as of this encounter Goals Goal Patient Goal Type Associated Problems Recent Progress Patient-Stated? Author Hemoglobin A1c < 7 Result Component 8.7( 11:55 AM EDT) No Puia, Martine, PharmD Record your blood sugar as directed Result Component No Puia, Martine, PharmD documented as of this encounter Visit Diagnoses Diagnosis Osteoarthritis of knee, unspecified laterality, unspecified osteoarthritis type COPD exacerbation (CMS/[facility]) Obstructive chronic bronchitis with exacerbation documented in this encounter Additional Health Concerns Assessment Noted Time PHQ-9 Depression Total Score: 0 12/06/19 24 10:09 AM EDT documented as of this encounter Care Teams Sub Assembly Team Worker Relationship Specialty Start Date End Date Name, MD Rolf [address] [place] [address] PCP - General Family Medicine 10/21/17 Martine Broussard PharmD [address] [place] [address] Pharmacist Internal Medicine 04/20/23 documented as of this encounter
--- OUTSIDE RECORDS SUMMARY | 2025-01-26 13:35 | XMS_ITS | Encounter Summary ---
Author Organization [employer] Address [address] [place] [address] 7 [place] [address] Care Team Providers Care Metal Forger'S Assistant Name Role Phone Name, Rolf PARKS Primary Care Provider [phone] Martine Broussard PharmD Unavailable Reason for Visit * Reason Comments Med Refill Encounter Details Date Type Department Care Team (Late st Contact Info) Description 01/31/2024 Refill [facility] [address] [place] [address] Name, MD Rolf [address] [place] [address] Chronic pain of left knee; Anxiety; Osteoarthritis [...] 03/02/2025 10:00 AM EDT Office Visit [facility] MEDICINE [address] [place] [address] Name, MD Rolf [address] [place] [address] 04/20/2025 11:00 AM EST Telemedicine [facility] MEDICINE [address] [place] [address] Karla Lewis RN documented as of this [...] as of this encounter Care Teams Metal Forger'S Assistant Relationship Specialty Start Date End Date Name, MD Rolf [address] [place] [address] PCP - General Family Medicine 10/21/17 Martine Broussard PharmD 230 [place] [address] Pharmacist Internal Medicine 04/20/23 documented as of this encounter
--- OUTSIDE RECORDS SUMMARY | 2025-01-26 13:35 | XMS_ITS | Encounter Summary ---
Author Organization [employer] Address [address] [place] [address] Care Team Providers Care Director Of Recruitment Name Role Phone Name, Rolf PARKS Primary Care Provider Martine rBoussard PharmD Unavailable Reason for Visit * Reason Comments Med Refill Encounter Details Date Type Department Care Team (Late st Contact Info) Description 01/14/2024 Refill [facility] MEDICINE 230 [place] [address] Vivian Barajas, ANP 230 [place] [address] Diabetes mellitus type 2 with neurological manifestations [...] 03/02/2025 10:00 AM EDT Office Visit [address] [address] Name, MD Rolf [address] [place] [address] 04/20/2025 11:00 AM EST Telemedicine [facility] [address] [place] [address] Karla Lewis, DARYN documented as of this [...] of this encounter Care Teams Director Of Recruitment Relationship Specialty Start Date End Date Name, MD Rolf [address] [place] [address] PCP - General Family Medicine 10/21/17 Martine Broussard, Paulo [address] [place] [address] Pharmacist Internal Medicine 04/20/23 documented as of this encounter
--- OUTSIDE RECORDS SUMMARY | 2025-01-26 13:35 | XMS_ITS | Encounter Summary ---
Author Organization [employer] Address [address] [place] [address] Care Team Providers Care Personnel Administrator Name Role Phone Name, Rolf PARKS Primary Care Provider [phone] Martine Broussard PharmD Unavailable [phone] Reason for Visit * Reason Comments Med Refill Encounter Details Date Type Department Care Team (Late st Contact Info) Description 07/05/2024 Refill [facility] MED[facility]INE 230 [place], [place] [phone] Name, MD Rolf [address] [place], [place] [phone] S/P TKR (total knee replacement), left Social [...] Description 03/02/2025 10:00 AM EDT Office Visit [address] [address] Name, MD Rolf [address] [place] [address] 04/20/2025 11:00 AM EST Telemedicine [facility] [address] [place] [address] Karla Lewis, DARYN documented as of this [...] documented as of this encounter Care Teams Personnel Administrator Relationship Specialty Start Date End Date Name, MD Rolf [address] [place] [address] PCP - General Family Medicine 10/21/17 Martine Broussard, Paulo [address] [place] [address] Pharmacist Internal Medicine 04/20/23 documented as of this encounter
--- OUTSIDE RECORDS SUMMARY | 2025-01-26 13:35 | XMS_ITS | Encounter Summary ---
Author Organization [employer] Address [address] [place] [address] Care Team Providers Care Banking Attorney Name Role Phone Name, Rolf PARKS Primary Care Provider [phone] Martine Broussard PharmD Unavailable [phone] Reason for Visit * Reason Comments Med Refill Encounter Details Date Type Department Care Team (Late st Contact Info) Description 01/28/2024 Refill [facility] 230 [place], [place] [phone] Name, MD Rolf 230 [place] [address] Iron deficiency anemia, unspecified iron deficiency anemia [...] Description 03/02/2025 10:00 AM EDT Office Visit [facility] [address] [place] [address] Name, MD Rolf [address] [place] [address] 04/20/2025 11:00 AM EST Telemedicine [facility] [address] [place] [address] Karla Lewis RN documented as of this [...] documented as of this encounter Care Teams Banking Attorney Relationship Specialty Start Date End Date Name, MD Rolf 230 [place] [address] PCP - General Family Medicine 10/21/17 Martine Broussard PharmD 230 [place] [address] Pharmacist Internal Medicine 04/20/23 documented as of this encounter
--- OUTSIDE RECORDS SUMMARY | 2025-01-26 13:35 | XMS_ITS | Encounter Summary ---
Author Organization [employer] Address [address] [place] [address] Care Team Providers Care Manager Apple Name Role Phone Name, Rolf PARKS Primary Care Provider [phone] Martine Broussard PharmD Unavailable [phone] Reason for Visit * Reason Comments Med Refill Encounter Details Date Type Department Care Team (Late st Contact Info) Description 01/28/2024 Refill [facility] MEDICINE 230 [place], [place] [phone] Name, MD Rolf 230 [place] [address] Iron deficiency anemia, unspecified iron deficiency anemia [...] Description 03/02/2025 10:00 AM EDT Office Visit [facility] MEDICINE [address] [place] [address] Name, MD Rolf [address] [place] [address] 04/20/2025 11:00 AM EST Telemedicine [facility] MEDICINE [address] [place] [address] Karla Lewis RN documented as of this [...] as of this encounter Care Teams Manager Apple Relationship Specialty Start Date End Date Name, MD Rolf 230 [place] [address] PCP - General Family Medicine 10/21/17 Martine Broussard PharmD 230 [place] [address] Pharmacist Internal Medicine 04/20/23 documented as of this encounter
--- OUTSIDE RECORDS SUMMARY | 2025-01-26 13:35 | XMS_ITS | Encounter Summary ---
Author Organization [employer] Address [address] [place] [address] Care Team Providers Care Bone Density Technician Name Role Phone Name, Rolf PARKS Primary Care Provider [phone] Puia, Martine PharmD Unavailable Puia, Martine PharmD Unavailable Reason for Visit * Reason Onset Date Comments Med Refill 05/07/2023 Encounter Details Date Type Department Care Team (Late st Contact Info) Description 05/07/2023 Refill [facility] [address] [place] [address] Name, MD Rolf 230 [place], [place] [phone] Osteoarthritis of knee, unspecified laterality, unspecified osteoarthritis [...] encounter Miscellaneous Notes * [facility] 11:46 AM EST Pt already picke dup refill from 05/05 * Telephone Encounter - Familia Doyle - 05/07/2023 3:51 PM EST TC from pt requesting medication refill. Medications needing refill : traMADol (Ultram) 50 MG tablet To be sent to: [facility] documented in this encounter Plan of Treatment Upcoming Encounters Date Type Department Care Team (Late st Contact Info) Description 03/02/2025 10:00 AM EDT Office Visit [facility] [address] [place] [address] Name, MD Rolf [address] [place] [address] 04/20/2025 11:00 AM EST Telemedicine [facility] [address] [place] [address] Karla Lewis, DARYN documented as of this [...] documented as of this encounter Care Teams Bone Density Technician Relationship Specialty Start Date End Date Name, MD Rolf [address] [place] [address] PCP - General Family Medicine 10/21/17 Martine Broussard PharmD [address] [place] [address] 9[address]53 Pharmacist Internal Medicine 04/20/23 Martine Broussard PharmD [address] [place] [address] 99571 Pharmacist Internal Medicine 04/20/23 08/11/23 documented as of this encounter
--- OUTSIDE RECORDS SUMMARY | 2025-01-26 13:35 | XMS_ITS | Encounter Summary ---
Author Organization [employer] Address [address] [place] [address] 16220 Care Team Providers Care Profile Grinder Name Role Phone Name, Rolf PARKS Primary Care Provider Puia, Martine PharmD Unavailable Puia, Martine PharmD Unavailable Reason for Visit * Reason Onset Date Comments Med Refill 03/23/2023 Encounter Details Date Type Department Care Team (Late st Contact Info) Description 03/23/2023 Telephone [facility]INE 230 [place] [address] Name, MD Rolf [address] [place], [place] [phone] Med Refill Social History Tobacco Use Types [...] 2:18 PM EST Medication was sent to [facility] on 12/07/22 with 11 refills. * Telephone Encounter - Nela Whalen - 03/23/2023 2:15 PM EST Tc from pt requesting med refill on; dulaglutide (Trulicity) 3 MG/0.5ML solution pen-injector [facility] [place] [address] [facility] documented in this encounter Plan of Treatment Upcoming Encounters Date Type Department Care Team (Late st Contact Info) Description 03/02/2025 10:00 AM EDT Office Visit [facility] [address] [place] [address] Name, MD Rolf [address] [place] [address] 04/20/2025 11:00 AM EST Telemedicine [facility] [address] [place] [address] Debbie, Karla, RN documented as of this encounter Visit Diagnoses Not on filedocumented in this encounter Additional Health Concerns Assessment Noted Time PHQ-9 Depression Total Score: 14 023 1:07 PM EDT documented as of this encounter Care Teams Profile Grinder Relationship Specialty Start Date End Date Name, MD Rolf [address] [place] [address] PCP - General Family Medicine 10/21/17 Martine Broussard PharmD [address] [place] [address] 11847 Pharmacist Internal Medicine 04/20/23 Martine Broussard PharmD [address] [place] [address]24 Pharmacist Internal Medicine 04/20/23 08/11/23 documented as of this encounter
--- OUTSIDE RECORDS SUMMARY | 2025-01-26 13:35 | XMS_ITS | Encounter Summary ---
Author Organization [employer] Address [address] [place] [address]81 Care Team Providers Care Estimating Engineer Name Role Phone Name, Rolf PARKS Primary Care Provider [phone] Martine Broussard PharmD Unavailable [phone] Reason for Visit * Reason Comments Med Refill Encounter Details Date Type Department Care Team (Late st Contact Info) Description 06/13/2024 Refill [facility] 230 [place], [place] [phone] Name, MD Rolf 230 [place], [place] [phone] S/P TKR (total knee replacement), left; Anxiety [...] Description 03/02/2025 10:00 AM EDT Office Visit [facility] [address] [place] [address] Name, MD Rolf [address] [place] [address] 04/20/2025 11:00 AM EST Telemedicine [facility] [address] [place] [address] Karla Lewis RN documented as of this [...] documented as of this encounter Care Teams Estimating Engineer Relationship Specialty Start Date End Date Name, MD Rolf 230 [place] [address] PCP - General Family Medicine 10/21/17 Martine Broussard, Paulo 230 [place] [address] Pharmacist Internal Medicine 04/20/23 documented as of this encounter
--- OUTSIDE RECORDS SUMMARY | 2025-01-26 13:35 | XMS_ITS | Encounter Summary ---
Author Organization [employer] Address [address] [place] [address]68 Care Team Providers Care Biology Laboratory Assistant Name Role Phone Name, Rolf PARKS Primary Care Provider Martine Broussard PharmD Unavailable [phone] Reason for Visit * Reason Comments Med Refill Encounter Details Date Type Department Care Team (Late st Contact Info) Description 07/21/2024 Refill [facility] 230 [place], [place] [phone] Name, MD Rolf 230 [place], [place] [phone] S/P TKR (total knee replacement), left Social [...] Description 03/02/2025 10:00 AM EDT Office Visit [address] [address] Name, MD Rolf [address] [place] [address] 04/20/2025 11:00 AM EST Telemedicine [facility] [address] [place] [address] Karla Lewis, DARYN documented as of this [...] as of this encounter Care Teams Biology Laboratory Assistant Relationship Specialty Start Date End Date Name, MD Rolf 230 [place] [address] PCP - General Family Medicine 10/21/17 Martine Broussard, Paulo [address] [place] [address] Pharmacist Internal Medicine 04/20/23 documented as of this encounter
--- OUTSIDE RECORDS SUMMARY | 2025-01-26 13:35 | XMS_ITS | Encounter Summary ---
Author Organization [employer] Address [address] [place] [address] Care Team Providers Care Flare Man Name Role Phone Name, Rolf PARKS Primary Care Provider [phone] Martine Broussard PharmD Unavailable Reason for Visit * Reason Comments Med Refill Encounter Details Date Type Department Care Team (Late st Contact Info) Description 02/02/2024 Refill [facility] 230 [place], [place] [phone] Name, MD Rolf 230 [place] [address] Iron deficiency anemia, unspecified iron deficiency anemia [...] Description 03/02/2025 10:00 AM EDT Office Visit [facility] [address] [place] [address] Name, MD Rolf [address] [place] [address] 04/20/2025 11:00 AM EST Telemedicine [facility] [address] [place] [address] Karla Lewis RN documented as of this [...] documented as of this encounter Care Teams Flare Man Relationship Specialty Start Date End Date Name, MD Rolf 230 [place] [address] PCP - General Family Medicine 10/21/17 Martine Broussard PharmD 230 [place] [address] Pharmacist Internal Medicine 04/20/23 documented as of this encounter
--- OUTSIDE RECORDS SUMMARY | 2025-01-26 13:35 | XMS_ITS | Encounter Summary ---
Author Organization [employer] Address [address] [place] [address] Care Team Providers Care Shipping & Receiving Lead Name Role Phone Name, Rolf PARKS Primary Care Provider [phone] Martine Broussard PharmD Unavailable [phone] Reason for Visit * Reason Onset Date Comments FYI 06/27/2024 Encounter Details Date Type Department Care Team (Late st Contact Info) Description 06/27/2024 Telephone [facility] [address] [place], [place] [phone] Name, MD Rolf 230 [place], [place] [phone] FYI Social History Tobacco Use Types Packs/Day [...] daughter to report she had to call [facility] for an emergency, upon arriving home they [...] Description 03/02/2025 10:00 AM EDT Office Visit [facility] [address] [place] [address] Name, MD Rolf [address] [place] [address] 04/20/2025 11:00 AM EST Telemedicine [facility] [address] [place] [address] Karla Lewis RN documented as of this [...] documented as of this encounter Care Teams Shipping & Receiving Lead Relationship Specialty Start Date End Date Name, MD Rolf [address] [place] [address] PCP - General Family Medicine 10/21/17 Martine Broussard, PharmD [address] [place] [address] 11573 Pharmacist Internal Medicine 04/20/23 documented as of this encounter
--- OUTSIDE RECORDS SUMMARY | 2025-01-26 13:35 | XMS_ITS | Encounter Summary ---
Author Organization [employer] Address [address] [place] [address]252 Care Team Providers Care Hand Tire Trimmer Name Role Phone Name, Rolf PARKS Primary Care Provider [phone] Martine Broussard PharmD Unavailable [phone] Reason for Visit * Reason Comments Med Refill Encounter Details Date Type Department Care Team (Late st Contact Info) Description 08/16/2024 Refill [facility] 230 [place], [place] [phone] Stefanie Mcneal MD [address] [place], [place] [phone] S/P TKR (total knee replacement), left Social [...] 10:00 AM EDT Office Visit [facility] [address] [place] [address] Name, MD Rolf [address] [place] [address] 04/20/2025 11:00 AM EST Telemedicine [facility] [address] [place] [address]27 Karla Lewis RN documented as of this [...] as of this encounter Care Teams Hand Tire Trimmer Relationship Specialty Start Date End Date Name, MD Rolf [address] [place] [address] PCP - General Family Medicine 10/21/17 Martine Broussard PharmD [address] [place] [address] Pharmacist Internal Medicine 04/20/23 documented as of this encounter
--- OUTSIDE RECORDS SUMMARY | 2025-01-26 13:35 | XMS_ITS | Encounter Summary ---
Author Organization [employer] Address [address] [place] [address] Care Team Providers Care Team Leader Name Role Phone Name, Rolf PARKS Primary Care Provider [phone] Martine Broussard PharmD Unavailable Reason for Visit * Reason Comments Med Refill Encounter Details Date Type Department Care Team (Late st Contact Info) Description 02/01/2024 Refill [facility] 230 [place], [place] [phone] Name, MD Rolf 230 [place] [address] Osteoarthritis of knee, unspecified laterality, unspecified osteoarthritis [...] Office Visit [facility] [address] [place] [address] Name, MD Rolf [address] [place] [address] 04/20/2025 11:00 AM EST Telemedicine [facility] [address] [place] [address] 60567 Karla Lewis RN documented as of this [...] documented as of this encounter Care Teams Team Leader Relationship Specialty Start Date End Date Name, MD Rolf 230 [place] [address] PCP - General Family Medicine 10/21/17 Martine Broussard PharmD 230 [place] [address] Pharmacist Internal Medicine 04/20/23 documented as of this encounter
--- OUTSIDE RECORDS SUMMARY | 2025-01-26 13:35 | XMS_ITS | Clinical Summary ---
Author Organization [employer] Address [address] [place] [address] Care Team Providers Care Service Superintendent Name Role Phone Poppy Hernandez MD Primary [...] 04/16/2022 Hypertension/CHF/CAD Annual BMP Blood Test 04/16/2022 Depression Screening 05/03/2024 COVID-19 Vaccine ( - 2023-2 5 season) 2025 Influenza Vaccine (#1) 2025 03/22/2012 RSV Immunization [...] age to complete this topic Care Teams Service Superintendent Relationship Specialty Start Date End Date Poppy Hernandez MD [address] [place] [address] PCP - General Internal Medicine 06/03/17
--- OUTSIDE RECORDS SUMMARY | 2025-01-26 13:35 | XMS_ITS | Encounter Summary ---
Author Organization [employer] Address [address] [place] [address]67 Care Team Providers Care Complaint Manager Name Role Phone Name, Rolf PARKS Primary Care Provider [phone] Puia, Martine PharmD Unavailable Puia, Martine PharmD Unavailable Reason for Visit * Reason Onset Date Comments Med Refill 05/21/2023 Encounter Details Date Type Department Care Team (Late st Contact Info) Description 05/21/2023 Telephone [facility]INE 230 [place] [address] Name, MD Rolf 230 [place], [place] [phone] Med Refill Social History Tobacco Use Types [...] 9:48 AM EST Medication was sent to [facility] on 04/20/23 with 11 refills. * Telephone Encounter - Brown Giraldo - 05/21/2023 9:30 AM EST TC from pt requesting medication refill. Medications needing refill : dulaglutide (Trulicity) 3 MG/0.5ML solution pen-injector To be sent to: [facility] [place] [place] - [address] [place] [address] documented in this encounter Plan of Treatment Upcoming Encounters Date Type Department Care Team (Late st Contact Info) Description 03/02/2025 10:00 AM EDT Office Visit [facility] [address] [place] [address] Name, MD Rolf [address] [place] [address] 04/20/2025 11:00 AM EST Telemedicine [facility] [address] [place] [address] Karla Lewis, RN documented as of this [...] documented as of this encounter Care Teams Complaint Manager Relationship Specialty Start Date End Date Name, MD Rolf [address] [place] [address] PCP - General Family Medicine 10/21/17 Martine Broussard PharmD [address] [place] [address]41 Pharmacist Internal Medicine 04/20/23 Martine Broussard PharmD 230 [place] [address] Pharmacist Internal Medicine 04/20/23 08/11/23 documented as of this encounter
--- OUTSIDE RECORDS SUMMARY | 2025-01-26 13:35 | XMS_ITS | Encounter Summary ---
Author Organization [employer] Address [address] [place] [address]39 Care Team Providers Care Websphere Commerce Architect Name Role Phone Name, Rolf PARKS Primary Care Provider [phone] Puia, Martine PharmD Unavailable Puia, Martine PharmD Unavailable [phone] Reason for Visit * Reason Onset Date Comments Med Refill 05/07/2023 Encounter Details Date Type Department Care Team (Late st Contact Info) Description 05/07/2023 Telephone [facility] 230 [place] [address] Name, MD Rolf 230 [place], [place] [phone] Med Refill Social History Tobacco Use Types [...] 3:52 PM EST Medication was sent to [facility] on 04/21/23. * Telephone Encounter - Familia Doyle - 05/07/2023 3:49 PM EST TC from pt requesting medication refill. Medications needing refill : gabapentin (Neurontin) 300 MG capsule To be sent to: [facility] documented in this encounter Plan of Treatment Upcoming Encounters Date Type Department Care Team (Late st Contact Info) Description 03/02/2025 10:00 AM EDT Office Visit [facility] [address] [place] [address] Name, MD Rolf [address] [place] [address] 04/20/2025 11:00 AM EST Telemedicine [facility] [address] [place] [address] Karla Lewis RN documented as of this encounter Goals Goal Patient Goal Type Associated Problems Recent Progress Patient-Stated? Author Hemoglobin A1c < 7 Result Component 8.7( 5 11:55 AM EDT) No Martine Broussard, PharmLexi Record your blood sugar as directed Result Component No Martine Broussard PharmD documented as of this encounter Visit Diagnoses Not on filedocumented in this encounter Additional Health Concerns Assessment Noted Time PHQ-9 Depression Total Score: 14 023 1:07 PM EDT documented as of this encounter Care Teams Websphere Commerce Architect Relationship Specialty Start Date End Date Name, MD Rolf [address] [place] [address] PCP - General Family Medicine 10/21/17 Martine Broussard PharmD [address] [place] [address] Pharmacist Internal Medicine 04/20/23 Martine Broussard PharmD [address] [place] [address] 8[address] Pharmacist Internal Medicine 04/20/23 08/11/23 documented as of this encounter
--- OUTSIDE RECORDS SUMMARY | 2025-01-26 13:35 | XMS_ITS | Encounter Summary ---
Author Organization [employer] Address [address] [place] [address] Care Team Providers Care Cigar Packer And Shader Name Role Phone Name, Rolf PARKS Primary Care Provider [phone] Martine Broussard PharmD Unavailable Reason for Visit * Reason Comments Med Refill Encounter Details Date Type Department Care Team (Late st Contact Info) Description 12/12/[address] [facility]INE 230 [place], [place] [phone] Name, MD Rolf 230 [place] [address] Osteoarthritis of knee, unspecified laterality, unspecified osteoarthritis [...] Upcoming Encounters Date Type Department Care Team ([facility] st Contact Info) Description 03/02/2025 10:00 AM EDT Office Visit [address] [address] Name, MD Rolf [address] [place] [address] 04/20/2025 11:00 AM EST Telemedicine [address] [address] Karla Lewis, DARYN documented as of [...] documented as of this encounter Care Teams Cigar Packer And Shader Relationship Specialty Start Date End Date Name, MD Rolf 230 [place] [address] PCP - General Family Medicine 10/21/17 Martine Broussard PharmD 230 [place] [address] Pharmacist Internal Medicine 04/20/23 documented as of this encounter
--- OUTSIDE RECORDS SUMMARY | 2025-01-26 13:35 | XMS_ITS | Encounter Summary ---
Author Organization [employer] Address [address] [place] [address] Care Team Providers Care Rn Case Manager Hospice Name Role Phone Name, Rolf PARKS Primary Care Provider [phone] Martine Broussard PharmD Unavailable [phone] Reason for Visit * Reason Comments Med Refill Encounter Details Date Type Department Care Team (Late st Contact Info) Description 06/21/2024 Refill [facility]INE 230 [place], [place] [phone] Name, MD Rolf 230 [place], [place] [phone] S/P TKR (total knee replacement), left; Anxiety [...] 10:00 AM EDT Office Visit [facility] [address] [place] [address] Name, MD Rolf [address] [place] [address] 04/20/2025 11:00 AM EST Telemedicine [facility] [address] [place] [address] Karla Lewis RN documented as of this [...] of this encounter Care Teams Rn Case Manager Hospice Relationship Specialty Start Date End Date Name, MD oRlf 230 [place] [address] PCP - General Family Medicine 10/21/17 Martine Broussard, Paulo [address] [place] [address] Pharmacist Internal Medicine 04/20/23 documented as of this encounter
--- OUTSIDE RECORDS SUMMARY | 2025-01-26 13:35 | XMS_ITS | Encounter Summary ---
Author Organization [employer] Address [address] [place] [address] Care Team Providers Care Services Coordinator Name Role Phone Name, Rolf PARKS Primary Care Provider [phone] Puia, Martine PharmD Unavailable Puia, Martine PharmD Unavailable Reason for Visit * Reason Onset Date Comments Med Refill 05/04/2023 Encounter Details Date Type Department Care Team (Late st Contact Info) Description 05/04/2023 Telephone [facility] 230 [place] [address] Name, MD Rolf 230 [place], [place] [phone] Med Refill Social History Tobacco Use Types [...] 3:59 PM EST Gabapentin was sent to [facility] on 04/21/23 and [id number] with 2 refills. * [...] Description 03/02/2025 10:00 AM EDT Office Visit [facility] [address] [place] [address] [phone] Name, MD Rolf [address] [place] [address] 04/20/2025 11:00 AM EST Telemedicine [facility] [address] [place] [address] 149[address] Debbie, Karla, RN documented as of this encounter Goals [...] documented as of this encounter Care Teams Services Coordinator Relationship Specialty Start Date End Date Name, MD Rolf [address] [place] [address] PCP - General Family Medicine 10/21/17 Martine Broussard PharmD [address] [place] [address] Pharmacist Internal Medicine 04/20/23 Martine Broussard PharmD [address] [place] [address] Pharmacist Internal Medicine 04/20/23 08/11/23 documented as of this encounter
--- OUTSIDE RECORDS SUMMARY | 2025-01-26 13:35 | XMS_ITS | Encounter Summary ---
Author Organization [employer] Address [address] [place] [address] Care Team Providers Care Sunday [employer] Missionary Name Role Phone Name, Rolf PARKS Primary Care Provider [phone] Martine Broussard PharmD Unavailable [phone] Reason for Visit * Reason Onset Date Comments Med Refill 01/23/2025 Telephone Matthew 01/23/2025 Encounter Details Date Type Department Care Team ([facility] st Contact Info) Description 01/23/2025 Telephone [facility] MED[facility]INE 230 [place], [place] [phone] Name, MD Rolf 230 [place], [place] [phone] Med Refill; Telephone Matthew Social History Tobacco Use Types Packs/Day Years [...] encounter Miscellaneous Notes * Telephone Encounter - Cathy Ortiz - 01/26/2025 11:48 AM EDT Patients daughter walked in stating she called on 01/23/25 requesting Benzonatete 100mg however shehas not received call informing her the medication was approved by provider. Requesting a calll back. [phone]. Thank you. * Telephone Encounter - Mary Peres LPN - 01/23/2025 3:24 PM EDT Medication was short term. * Telephone Encounter - Margarita Godoy - 01/23/2025 3:23 PM EDT TC from pt requesting medication refill. Medications needing refill : benzonatate (Tessalon Perles) 100 MG capsule To be sent to: [id number] [place] [address] [facility] documented in this encounter Plan of Treatment Upcoming Encounters Date Type Department Care Team (Late st Contact Info) Description 03/02/2025 10:00 AM EDT Office Visit [facility]INE [address] [place] [address] Name, MD Rolf [address] [place] [address] 04/20/2025 11:00 AM EST Telemedicine [facility]INE [address] [place] [address] [phone] Karla Lewis, RN documented as of this [...] documented as of this encounter Care Teams Sunday [employer] Missionary Relationship Specialty Start Date End Date Name, MD Rolf [address] [place] [address] PCP - General Family Medicine 10/21/17 Martine Broussard, PharmD [address] [place] [address] Pharmacist Internal Medicine 04/20/23 documented as of this encounter
[2025-01-26 14:27] LABS: Anion Gap 15 (12-20); Blood Urea Nitrogen 23 mg/dL (9-16); Calcium 10.1 mg/dL (8.4-10.2); Carbon Dioxide 30 mmol/L (22-29); Chloride 103 mmol/L (96-108); Estimated Glomerular Filt Rate > 60; Potassium 5.1 mmol/L (3.3-5.1); Sodium 143 mmol/L (135-145)
== END 2025-01-26 11:39 | disposition home or self-care (01) ==
LOC: HO.HHCL 11:38
PROVIDERS: PCP Internal Medicine Geriatric Medicine; Visit Provider Internal Medicine Geriatric Medicine
DX: E87.5 Hyperkalemia (principal)
CPT/HCPCS: 36415; 80048

== ENCOUNTER 2025-03-15 09:49 | Outpatient (REF) | payer OTHER, SELFPAY ==
--- OUTSIDE RECORDS SUMMARY | 2025-03-15 11:32 | XMS_ITS | Encounter Summary ---
Author Organization [employer] Address [address] [place] [address] Care Team Providers Care Packing Checker Name Role Phone Name, Rolf PARKS Primary Care Provider [phone] Martine Broussard PharmD Unavailable Reason for Visit * Reason Comments Med Refill Encounter Details Date Type Department Care Team (Late st Contact Info) Description 02/07/2025 Refill [facility] [address] [place], [place] [phone] Name, MD Rolf 230 [place] [address] Iron deficiency anemia, unspecified iron deficiency anemia type; COPD exacerbation (CMS/HCC) ([facility]); Osteoarthritis of both knees, unspecified osteoarthritis type [...] Care Team (Late st Contact Info) Description 04/20/2025 11:00 AM EST Telemedicine [facility] [address] [place] [address] Karla Lewis RN documented as of this encounter Goals Goal Patient Goal Type Associated Problems Recent Progress Patient-Stated? Author Hemoglobin A1c < 7 Result Component 7.4( 5 10:17 AM EDT) No Puia, Martine, PharmD Record your blood sugar as directed Result Component No Puia, Martine, PharmD documented as of this encounter Visit Diagnoses Diagnosis Iron deficiency anemia, unspecified iron deficiency anemia type COPD exacerbation (CMS/HCC) (HCC) Obstructive chronic bronchitis with exacerbation Osteoarthritis of both knees, unspecified osteoarthritis type documented in this encounter Additional Health Concerns Assessment Noted Time PHQ-9 Depression Total Score: 4 11/30/19 25 11:56 AM EDT documented as of this encounter Care Teams Packing Checker Relationship Specialty Start Date End Date Name, MD Rolf [address] [place] [address] PCP - General Family Medicine 10/21/17 Martine Broussard, GarrettD [address] [place] [address] Pharmacist Internal Medicine 04/20/23 documented as of this encounter
--- OUTSIDE RECORDS SUMMARY | 2025-03-15 11:32 | XMS_ITS | Encounter Summary ---
Author Organization [employer] Address [address] [place] [address] [place] [address] Care Team Providers Care Bricklayer'S Assistant Name Role Phone Name, Rolf PARKS Primary Care Provider Puia, Martine PharmD Unavailable Puia, Martine PharmD Unavailable Reason for Visit * Reason Comments Med Refill Encounter Details Date Type Department Care Team (Late st Contact Info) Description 06/02/[address] [facility] [address] [place] [address] Delisa Hilliard MD 230 [place] [address] Osteoarthritis of knee, unspecified laterality, unspecified osteoarthritis [...] Info) Description 04/20/2025 11:00 AM EST Telemedicine [facility] [address] [place] [address] Karla Lewis RN documented as of this encounter Goals Goal Patient Goal Type Associated Problems Recent Progress Patient-Stated? Author Hemoglobin A1c < 7 Result Component 7.4( 10:17 AM EDT) No Martine Broussard, PharmD Record your blood sugar as directed Result Component No Lance Broussardyssa, PharmD documented as of this encounter Visit Diagnoses Diagnosis Osteoarthritis of knee, unspecified laterality, unspecified osteoarthritis type documented in this encounter Additional Health Concerns Assessment Noted Time PHQ-9 Depression Total Score: 14 023 1:07 PM EDT documented as of this encounter Care Teams Bricklayer'S Assistant Relationship Specialty Start Date End Date Name, MD Rolf [address] [place] [address] PCP - General Family Medicine 10/21/17 Martine Broussard, PharmD [address] [place] [address] Pharmacist Internal Medicine 04/20/23 Martine Broussard, PharmD [address] [place] [address] Pharmacist Internal Medicine 04/20/23 08/11/23 documented as of this encounter
--- OUTSIDE RECORDS SUMMARY | 2025-03-15 11:32 | XMS_ITS | Encounter Summary ---
Author Organization [email or web address] Address [address] [place] [address] Care Team Providers Care Bench Assembler Operator Name Role Phone Name, Rolf PARKS Primary Care Provider [phone] Martine Broussard PharmD Unavailable Reason for Visit * Reason Onset Date Comments Med Refill 03/12/2025 Encounter Details Date Type Department Care Team (Late st Contact Info) Description 03/12/2025 Refill [facility] 230 [place], [place] [phone] Name, MD Rolf 230 [place], [place] [phone] S/P TKR (total knee replacement), left Social [...] encounter Miscellaneous Notes * Telephone Encounter - Deb Rand - 03/12/2025 11:26 AM EST TC from pt requesting medication refill. Medications needing refill : - oxyCODONE-acetaminophen (Percocet) 5-325 MG tablet To be sent to: - [facility] - [place], [place] - [address] [place] [address] documented in this encounter Plan of Treatment Upcoming Encounters Date Type Department Care Team (Late st Contact Info) Description 04/20/2025 11:00 AM EST Telemedicine [facility] [address] [place] [address] Karla Lewis, RN documented as of this encounter Goals Goal Patient Goal Type Associated Problems Recent Progress Patient-Stated? Author Hemoglobin A1c < 7 Result Component 7.4( 10:17 AM EDT) No Puia, Martine, PharmD Record your blood sugar as directed Result Component No Martine Broussard, PharmD documented as of this encounter Visit Diagnoses Diagnosis S/P TKR (total knee replacement), left documented in this encounter Additional Health Concerns Assessment Noted Time PHQ-9 Depression Total Score: 4 11/30/19 25 11:56 AM EDT documented as of this encounter Care Teams Bench Assembler Operator Relationship Specialty Start Date End Date Name, MD Rolf 230 [place] [address] PCP - General Family Medicine 10/21/17 Martine Broussard, PharmD [address] [place] [address] Pharmacist Internal Medicine 04/20/23 documented as of this encounter
--- OUTSIDE RECORDS SUMMARY | 2025-03-15 11:32 | XMS_ITS | Encounter Summary ---
Author Organization [employer] Address [address] [place] [address] Care Team Providers Care Problem Manager Name Role Phone Name, Rolf PARKS Primary Care Provider [phone] Martine Broussard PharmD Unavailable [phone] Reason for Visit * Reason Comments Med Refill Encounter Details Date Type Department Care Team (Late st Contact Info) Description 03/10/[address] [facility] 230 [place], [place] [phone] Name, MD Rolf 230 [place] [address] Osteoarthritis of knee, unspecified laterality, unspecified osteoarthritis [...] Info) Description 04/20/2025 11:[address] [facility] 230 [place] [address] Karla Lewis, RN documented as of this [...] documented as of this encounter Care Teams Problem Manager Relationship Specialty Start Date End Date Name, MD Rolf 230 [place] [address] PCP - General Family Medicine 10/21/17 Martine Broussard, Paulo [address] [place] [address] Pharmacist Internal Medicine 04/20/23 documented as of this encounter
--- OUTSIDE RECORDS SUMMARY | 2025-03-15 11:32 | XMS_ITS | Encounter Summary ---
Author Organization [employer] Address [address] [place] [address] Care Team Providers Care Electrophysiology Tech Name Role Phone Name, Rolf PARKS Primary Care Provider [phone] Martine Broussard PharmD Unavailable Reason for Visit * Reason Comments Med Refill Encounter Details Date Type Department Care Team (Late st Contact Info) Description 02/18/2024 Refill [facility] 230 [place] [address] Vivian Barajas, ANP 230 [place] [address] Diabetes mellitus type 2 with neurological manifestations [...] Info) Description 04/20/2025 11:00 AM EST Telemedicine [facility] 230 [place] [address] Karla Lewis, RN documented as of this encounter Goals Goal Patient Goal Type Associated Problems Recent Progress Patient-Stated? Author Hemoglobin A1c < 7 Result Component 7.4( 10:17 AM EDT) No Puia, Martine, PharmD Record your blood sugar as directed Result Component No Puia, Martine, PharmD documented as of this encounter Visit Diagnoses Diagnosis Diabetes mellitus type 2 with neurological manifestations (HCC) documented in this encounter Additional Health Concerns Assessment Noted Time PHQ-9 Depression Total Score: 0 12/06/19 10:09 AM EDT documented as of this encounter Care Teams Electrophysiology Tech Relationship Specialty Start Date End Date Name, MD Rolf [address] [place] [address] PCP - General Family Medicine 10/21/17 Martine Broussard, Paulo [address] [place] [address] Pharmacist Internal Medicine 04/20/23 documented as of this encounter
--- OUTSIDE RECORDS SUMMARY | 2025-03-15 11:32 | XMS_ITS | Encounter Summary ---
Author Organization [employer] Address [address] [place] [address] Care Team Providers Care Acetylene Torch Burner Name Role Phone Name, Rolf PARKS Primary Care Provider [phone] Martine Broussard PharmD Unavailable [phone] Reason for Visit * Reason Comments Med Refill Encounter Details Date Type Department Care Team (Late st Contact Info) Description 02/11/2024 Refill [facility] 230 [place], [place] [phone] Name, MD Rolf 230 [place] [address] Anxiety; Chronic pain of left knee; Osteoarthritis [...] 04/20/2025 11:00 AM EST Telemedicine [facility] [address] [place] [address] Karla Lewis RN documented as of this [...] documented as of this encounter Care Teams Acetylene Torch Burner Relationship Specialty Start Date End Date Name, MD Rolf [address] [place] [address] PCP - General Family Medicine 10/21/17 Martine Broussard PharmD [address] [place] [address] Pharmacist Internal Medicine 04/20/23 documented as of this encounter
--- OUTSIDE RECORDS SUMMARY | 2025-03-15 11:32 | XMS_ITS | Encounter Summary ---
Author Organization [employer] Address [address] [place] [address] Care Team Providers Care Industrial Relations Analyst Name Role Phone Name, Rolf PARKS Primary Care Provider [phone] Martine Broussard PharmD Unavailable [phone] Reason for Visit * Reason Comments Med Refill Encounter Details Date Type Department Care Team ([facility] st Contact Info) Description 02/16/2024 Refill [facility] 230 [place], [place] [phone] Name, MD Rolf 230 [place] [address] COPD exacerbation (CMS/HCC); Anxiety Social History Tobacco [...] EST Telemedicine [facility] [address] [place] [address] Karla Lewis, RN documented as of this encounter Goals Goal Patient Goal Type Associated Problems Recent Progress Patient-Stated? Author Hemoglobin A1c < 7 Result Component 7.4( 10:17 AM EDT) No Puia, Martine, PharmD Record your blood sugar as directed Result Component No Puia, Martine, PharmD documented as of this encounter Visit Diagnoses Diagnosis COPD exacerbation (CMS/HCC) (HCC) Obstructive chronic bronchitis with exacerbation Anxiety Anxiety state, unspecified documented in this encounter Additional Health Concerns Assessment Noted Time PHQ-9 Depression Total Score: 0 12/06/19 24 10:09 AM EDT documented as of this encounter Care Teams Industrial Relations Analyst Relationship Specialty Start Date End Date Name, MD Rolf [address] [place] [address] PCP - General Family Medicine 10/21/17 Martine Broussard, Paulo [address] [place] [address] [phone] Pharmacist Internal Medicine 04/20/23 documented as of this encounter
--- OUTSIDE RECORDS SUMMARY | 2025-03-15 11:32 | XMS_ITS | Encounter Summary ---
Author Organization [employer] Address [address] [place] [address] Care Team Providers Care Skull Grinder Name Role Phone Name, Rolf PARKS Primary Care Provider [phone] Martine Broussard PharmD Unavailable [phone] Reason for Visit * Reason Comments Med Refill Encounter Details Date Type Department Care Team ([facility] st Contact Info) Description 02/10/2024 Refill [facility] 230 [place], [place] [phone] Name, MD Rolf 230 [place] [address] COPD exacerbation (CMS/HCC) Social History Tobacco Use [...] Info) Description 04/20/2025 11:00 AM EST Telemedicine [facility]INE [address] [place] [address] Karla Lewis, RN documented as of this encounter Goals Goal Patient Goal Type Associated Problems Recent Progress Patient-Stated? Author Hemoglobin A1c < 7 Result Component 7.4( 10:17 AM EDT) No Puia, Martine, PharmD Record your blood sugar as directed Result Component No Puia, Martine, PharmD documented as of this encounter Visit Diagnoses Diagnosis COPD exacerbation (CMS/HCC) (HCC) Obstructive chronic bronchitis with exacerbation documented in this encounter Additional Health Concerns Assessment Noted Time PHQ-9 Depression Total Score: 0 12/06/19 24 10:09 AM EDT documented as of this encounter Care Teams Skull Grinder Relationship Specialty Start Date End Date Name, MD Rolf [address] [place] [address] PCP - General Family Medicine 10/21/17 Martine Broussard, Paulo [address] [place] [address] Pharmacist Internal Medicine 04/20/23 documented as of this encounter
--- OUTSIDE RECORDS SUMMARY | 2025-03-15 11:32 | XMS_ITS | Encounter Summary ---
Author Organization [employer] Address [address] [place] [address] Care Team Providers Care Tapering Machine Operator Name Role Phone Name, Rolf PARKS Primary Care Provider Martine Broussard PharmD Unavailable [phone] Reason for Visit * Reason Comments Med Refill Encounter Details Date Type Department Care Team (Late st Contact Info) Description 02/18/2024 Refill [facility] 230 [place] [address] Vivian Barajas, ANP 230 [place] [address] Diabetes mellitus type 2 with neurological manifestations [...] Info) Description 04/20/2025 11:00 AM EST Telemedicine [facility] 230 [place] [address] Karla Lewis, RN documented as of this [...] documented as of this encounter Care Teams Tapering Machine Operator Relationship Specialty Start Date End Date Name, MD Rolf [address] [place] [address] PCP - General Family Medicine 10/21/17 Martine Broussard, Paulo [address] [place] [address] Pharmacist Internal Medicine 04/20/23 documented as of this encounter
--- OUTSIDE RECORDS SUMMARY | 2025-03-15 11:32 | XMS_ITS | Encounter Summary ---
Author Organization [employer] Address [address] [place] [address] Care Team Providers Care Pipe Foreman Name Role Phone Tye, Rolf PARKS Primary Care Provider [phone] Martine Broussard PharmD Unavailable [phone] Reason for Visit * Reason Comments Med Refill Encounter Details Date Type Department Care Team ([facility] st Contact Info) Description 02/05/2025 Refill [facility] 230 [place], [place] [phone] Name, MD Rolf 230 [place] [address] Chronic insomnia Social History Tobacco Use Types [...] Info) Description 04/20/2025 11:00 AM EST Telemedicine [facility] 230 [place] [address] Karla Lewis, DARYN documented as of this [...] documented as of this encounter Care Teams Pipe Foreman Relationship Specialty Start Date End Date Name, MD Rolf [address] [place] [address] PCP - General Family Medicine 10/21/17 Martine Broussard, PharmD [address] [place] [address] Pharmacist Internal Medicine 04/20/23 documented as of this encounter
--- OUTSIDE RECORDS SUMMARY | 2025-03-15 11:32 | XMS_ITS | Encounter Summary ---
Author Organization [employer] Address [address] [place] [address] Care Team Providers Care Arboreal Scientist Name Role Phone Name, Rolf PARKS Primary Care Provider [phone] Martine Broussard PharmD Unavailable Reason for Visit * Reason Onset Date Comments fyi 02/22/2024 Durable Medical Equipment 02/22/2024 Encounter Details Date Type Department Care Team (Late st Contact Info) Description 02/22/2024 Telephone [facility] MED[facility]INE 230 [place], [place] [phone] Name, MD Rolf 230 [place], [place] [phone] fyi; Durable Medical Equipment Social History Tobacco [...] - 02/22/2024 1:30 PM EDT Tc from [facility] (Daughter) requesting a callback due to pt (Hong Puente) going on surgery 02/28 and needs DME equipment. Annetta (yakut) [phone] documented in this encounter Plan of Treatment Upcoming Encounters Date Type Department Care Team (Late st Contact Info) Description 04/20/2025 11:00 AM EST Telemedicine [facility] [address] [place] [address] Karla Lewis, DARYN documented as of this [...] documented as of this encounter Care Teams Arboreal Scientist Relationship Specialty Start Date End Date Name, MD Rolf [address] [place] [address] PCP - General Family Medicine 10/21/17 Martine Broussard PharmD 230 [place] [address] Pharmacist Internal Medicine 04/20/23 documented as of this encounter
--- OUTSIDE RECORDS SUMMARY | 2025-03-15 11:32 | XMS_ITS | Encounter Summary ---
Author Organization [employer] Address [address] [place] [address] Care Team Providers Care Mold Hoister Name Role Phone Name, Rolf PARKS Primary Care Provider [phone] Martine Broussard PharmD Unavailable [phone] Reason for Visit * Reason Comments Med Refill Encounter Details Date Type Department Care Team ([facility] st Contact Info) Description 02/07/2025 Refill [facility] 230 [place] [address] Felicia Law NP 230 [place] [address] Chronic insomnia Social History Tobacco Use Types [...] 04/20/2025 11:00 AM EST Telemedicine [facility] 230 [place] [address] Karla Lewis, DARYN documented as of this [...] documented as of this encounter Care Teams Mold Hoister Relationship Specialty Start Date End Date Name, MD Rolf 230 [place] [address] PCP - General Family Medicine 10/21/17 Martine Broussard, PharmD [address] [place] [address] Pharmacist Internal Medicine 04/20/23 documented as of this encounter
--- OUTSIDE RECORDS SUMMARY | 2025-03-15 11:32 | XMS_ITS | Encounter Summary ---
Author Organization [employer] Address [address] [place] [address] Care Team Providers Care News Clerk Name Role Phone Name, Rolf PARKS Primary Care Provider [phone] Martine Broussard PharmD Unavailable Encounter Details Date Type Department Care Team ([facility] st Contact Info) Description 02/22/2024 Telephone [facility] [address] [employer], [place] [phone] Name, MD Rolf 230 [place] [address] Social History Tobacco Use Types Packs/Day Years [...] Info) Description 04/20/2025 11:00 AM EST Telemedicine [facility] [address] [place] [address] Karla Lewis RN documented as of this [...] documented as of this encounter Care Teams News Clerk Relationship Specialty Start Date End Date Name, MD Rolf [address] [place] [address] PCP - General Family Medicine 10/21/17 Puia, Martine, PharmD [address] [place] [address] Pharmacist Internal Medicine 04/20/23 documented as of this encounter
--- OUTSIDE RECORDS SUMMARY | 2025-03-15 11:32 | XMS_ITS | Encounter Summary ---
Author Organization [employer] Address [address] [place] [address] Care Team Providers Care Inserting Operator Name Role Phone Name, Rolf PARKS Primary Care Provider Martine Broussard PharmD Unavailable [phone] Reason for Visit * Reason Comments Med Refill Encounter Details Date Type Department Care Team (Late st Contact Info) Description 02/22/2024 Refill [facility] 230 [place], [place] [phone] Name, MD Rolf 230 [place] [address] Chronic pain of left knee; COPD exacerbation [...] AM EST Telemedicine [facility] [address] [place] [address] Karla Lewis, DARYN documented as of this encounter Goals Goal Patient Goal Type Associated Problems Recent Progress Patient-Stated? Author Hemoglobin A1c < 7 Result Component 7.4( 10:17 AM EDT) No Puia, Martine, PharmD Record your blood sugar as directed Result Component No Puia, Martine, PharmD documented as of this encounter Visit Diagnoses Diagnosis Chronic pain of left knee COPD exacerbation (CMS/HCC) (HCC) Obstructive chronic bronchitis with exacerbation Osteoarthritis of knee, unspecified laterality, unspecified osteoarthritis type documented in this encounter Additional Health Concerns Assessment Noted Time PHQ-9 Depression Total Score: 0 12/06/19 10:09 AM EDT documented as of this encounter Care Teams Inserting Operator Relationship Specialty Start Date End Date Name, MD Rolf [address] [place] [address] PCP - General Family Medicine 10/21/17 Martine Broussard, GarrettD 230 [place] [address] Pharmacist Internal Medicine 04/20/23 documented as of this encounter
--- OUTSIDE RECORDS SUMMARY | 2025-03-15 11:32 | XMS_ITS | Encounter Summary ---
Author Organization [employer] Address [address] [place] [address] Care Team Providers Care Uniform Maker Name Role Phone Name, Rolf PARKS Primary Care Provider [phone] Martine Broussard PharmD Unavailable [phone] Reason for Visit * Reason Comments Med Refill Encounter Details Date Type Department Care Team ([facility] st Contact Info) Description 02/09/2024 Refill [facility] 230 [place], [place] [phone] Name, MD Rolf 230 [place] [address] COPD exacerbation (CMS/HCC) Social History Tobacco Use [...] Info) Description 04/20/2025 11:00 AM EST Telemedicine [facility] [address] [place] [address] Karla Lewis, RN documented as of this [...] documented as of this encounter Care Teams Uniform Maker Relationship Specialty Start Date End Date Name, MD Rolf [address] [place] [address] PCP - General Family Medicine 10/21/17 Martine Broussard, Paulo [address] [place] [address] Pharmacist Internal Medicine 04/20/23 documented as of this encounter
--- OUTSIDE RECORDS SUMMARY | 2025-03-15 11:32 | XMS_ITS | Encounter Summary ---
Author Organization [employer] Address [address] [place] [address] Care Team Providers Care Orange Peel Operator Name Role Phone Name, Rolf PARKS Primary Care Provider Martine Broussard PharmD Unavailable Reason for Visit * Reason Comments Med Refill Encounter Details Date Type Department Care Team (Late st Contact Info) Description 02/18/2024 Refill [facility] 230 [place], [place] [phone] Name, MD Rolf 230 [place] [address] Chronic pain of left knee; COPD exacerbation [...] Info) Description 04/20/2025 11:00 AM EST Telemedicine [facility] [address] [place] [address] Karla Lewis, RN documented as of this [...] documented as of this encounter Care Teams Orange Peel Operator Relationship Specialty Start Date End Date Name, MD Rlof 230 [place] [address] PCP - General Family Medicine 10/21/17 Martine Broussard PharmD 230 [place] [address] Pharmacist Internal Medicine 04/20/23 documented as of this encounter
--- OUTSIDE RECORDS SUMMARY | 2025-03-15 11:32 | XMS_ITS | Encounter Summary ---
Author Organization [employer] Address [address] [place] [address] Care Team Providers Care Track Repair Person Name Role Phone Name, Rolf PARKS Primary Care Provider [phone] Martine Broussard PharmD Unavailable [phone] Reason for Visit * Reason Comments Med Refill Encounter Details Date Type Department Care Team (Late st Contact Info) Description 03/09/2025 Refill [facility] 230 [place], [place] [phone] Name, MD Rolf 230 [place] [address] Chronic insomnia; Iron deficiency anemia, unspecified iron deficiency anemia [...] Telemedicine [facility] [address] [place] [address] Karla Lewis, DARYN documented as of this encounter Goals Goal Patient Goal Type Associated Problems Recent Progress Patient-Stated? Author Hemoglobin A1c < 7 Result Component 7.4( 10:17 AM EDT) No Puia, Martine, PharmD Record your blood sugar as directed Result Component No Puia, Martine, PharmD documented as of this encounter Visit Diagnoses Diagnosis Chronic insomnia Insomnia, unspecified Iron deficiency anemia, unspecified iron deficiency anemia type documented in this encounter Additional Health Concerns Assessment Noted Time PHQ-9 Depression Total Score: 4 11/30/19 25 11:56 AM EDT documented as of this encounter Care Teams Track Repair Person Relationship Specialty Start Date End Date Name, MD Rolf [address] [place] [address] PCP - General Family Medicine 10/21/17 Martine Broussard, Paulo [address] [place] [address] Pharmacist Internal Medicine 04/20/23 documented as of this encounter
--- OUTSIDE RECORDS SUMMARY | 2025-03-15 11:32 | XMS_ITS | Encounter Summary ---
Author Organization [employer] Address [address] [place] [address] Care Team Providers Care Industrial Yard Brake Coupler Name Role Phone Name, Rolf PARKS Primary Care Provider [phone] Martine Broussard PharmD Unavailable Reason for Visit * Reason Comments Med Refill Encounter Details Date Type Department Care Team (Late st Contact Info) Description 02/28/2024 Refill [facility] 230 [place], [place] [phone] Name, MD Rolf 230 [place] [address] COPD exacerbation (CMS/HCC); Anxiety; Osteoarthritis of knee, [...] Info) Description 04/20/2025 11:00 AM EST Telemedicine [facility] [address] [place] [address] Karla Lewis, RN documented as of this [...] as of this encounter Care Teams Industrial Yard Brake Coupler Relationship Specialty Start Date End Date Name, MD Rolf 230 [place] [address] PCP - General Family Medicine 10/21/17 Martine Broussard PharmD 230 [place] [address] Pharmacist Internal Medicine 04/20/23 documented as of this encounter
--- OUTSIDE RECORDS SUMMARY | 2025-03-15 11:32 | XMS_ITS | Encounter Summary ---
Author Organization [employer] Address [address] [place] [address] Care Team Providers Care Gospel Worker Name Role Phone Name, Rolf PARKS Primary Care Provider Martine Broussard PharmD Unavailable Reason for Visit * Reason Comments Med Refill Encounter Details Date Type Department Care Team (Late st Contact Info) Description 03/13/2024 Refill [facility]INE 230 [place] [address] Vivian Barajas, ANP 230 [place] [address] Diabetes mellitus type 2 with neurological manifestations [...] Info) Description 04/20/2025 11:00 AM EST Telemedicine [facility] 230 [place] [address] Karla Lewis, RN documented as of this [...] documented as of this encounter Care Teams Gospel Worker Relationship Specialty Start Date End Date Name, MD Rolf [address] [place] [address] PCP - General Family Medicine 10/21/17 Martine Broussard, Paulo [address] [place] [address] Pharmacist Internal Medicine 04/20/23 documented as of this encounter
--- OUTSIDE RECORDS SUMMARY | 2025-03-15 11:32 | XMS_ITS | Encounter Summary ---
Author Organization [employer] Address [address] [place] [address] [place] [address] Care Team Providers Care Medical Billing Coordinator Name Role Phone Name, Rolf PARKS Primary Care Provider Puia, Martine PharmD Unavailable Puia, Martine PharmD Unavailable [phone] Reason for Visit * Reason Comments Med Refill Encounter Details Date Type Department Care Team (Late st Contact Info) Description 06/02/2023 Refill [facility] [address] [place] [address] Delisa Hilliard MD 230 [place] [address] Osteoarthritis of knee, unspecified laterality, unspecified osteoarthritis [...] Info) Description 04/20/2025 11:00 AM EST Telemedicine [facility] [address] [place] [address] Karla Lewis RN documented as of this [...] as of this encounter Care Teams Medical Billing Coordinator Relationship Specialty Start Date End Date Name, MD Rolf [address] [place] [address] PCP - General Family Medicine 10/21/17 Martine Broussard, PharmD [address] [place] [address] Pharmacist Internal Medicine 04/20/23 Martine Broussard, PharmD [address] [place] [address] Pharmacist Internal Medicine 04/20/23 08/11/23 documented as of this encounter
[2025-03-15 11:33] LABS: MANUAL DIFF FLAG NO
--- OUTSIDE RECORDS SUMMARY | 2025-03-15 11:33 | XMS_ITS | Encounter Summary ---
Author Organization [employer] Address [address] [place] [address] Care Team Providers Care Geography Instructor Name Role Phone Name, Rolf PARKS Primary Care Provider Martine Broussard PharmD Unavailable Reason for Visit * Reason Comments Med Refill Encounter Details Date Type Department Care Team (Late st Contact Info) Description 03/29/2024 Refill [facility] MEDICINE 230 [place] [address] Vivian Barajas, ANP 230 [place] [address] Diabetes mellitus type 2 with neurological manifestations [...] Info) Description 04/20/2025 11:00 AM EST Telemedicine [facility]INE 230 [place] [address] Karla Lewis, RN documented as of this [...] as of this encounter Care Teams Geography Instructor Relationship Specialty Start Date End Date Name, MD Rolf 230 [place] [address] PCP - General Family Medicine 10/21/17 Martine Broussard, Paulo [address] [place] [address] Pharmacist Internal Medicine 04/20/23 documented as of this encounter
--- OUTSIDE RECORDS SUMMARY | 2025-03-15 11:33 | XMS_ITS | Encounter Summary ---
Author Organization [employer] Address [address] [place] [address] Care Team Providers Care Folder Tier Name Role Phone Name, Rolf PARKS Primary Care Provider Martine Broussard PharmD Unavailable [phone] Reason for Visit * Reason Comments Med Refill Encounter Details Date Type Department Care Team (Late st Contact Info) Description 03/02/2024 Refill [facility] 230 [place] [address] Vivian Barajas, ANP 230 [place] [address] Diabetes mellitus type 2 with neurological manifestations [...] Info) Description 04/20/2025 11:00 AM EST Telemedicine [facility]INE 230 [place] [address] Karla Lewis, RN documented as of this [...] as of this encounter Care Teams Folder Tier Relationship Specialty Start Date End Date Name, MD Rolf [address] [place] [address] PCP - General Family Medicine 10/21/17 Martine Broussard, Paulo [address] [place] [address] Pharmacist Internal Medicine 04/20/23 documented as of this encounter
--- OUTSIDE RECORDS SUMMARY | 2025-03-15 11:33 | XMS_ITS | Encounter Summary ---
Author Organization [employer] Address [address] [place] [address] Care Team Providers Care Architectural Wood Model Maker Name Role Phone Name, Rolf PARKS Primary Care Provider [phone] Martine Broussard PharmD Unavailable Reason for Visit * Reason Comments Med Refill Encounter Details Date Type Department Care Team (Late st Contact Info) Description 04/24/2024 Refill [facility] MED[facility]INE 230 [place] [address] Vivian Barajas, ANP 230 [place] [address] Diabetes mellitus type 2 with neurological manifestations [...] Info) Description 04/20/2025 11:00 AM EST Telemedicine [facility] MEDICINE 230 [place] [address] Karla Lewis, RN documented as of this [...] documented as of this encounter Care Teams Architectural Wood Model Maker Relationship Specialty Start Date End Date Name, MD Rolf 230 [place] [address] PCP - General Family Medicine 10/21/17 Martine Broussard, Paulo [address] [place] [address] Pharmacist Internal Medicine 04/20/23 documented as of this encounter
--- OUTSIDE RECORDS SUMMARY | 2025-03-15 11:33 | XMS_ITS | Encounter Summary ---
Author Organization [employer] Address [address] [place] [address] [place] [address] Care Team Providers Care Bricklayer Paving Brick Name Role Phone Name, Rolf PARKS Primary Care Provider [phone] Puia, Martine PharmD Unavailable Puia, Martine PharmD Unavailable Reason for Visit * Reason Comments Med Refill Encounter Details Date Type Department Care Team (Late st Contact Info) Description 06/22/2023 Refill [facility] MED[facility]INE 230 [place], [place] [phone] Name, MD Rolf 230 [place], [place] [phone] Osteoarthritis of knee, unspecified laterality, unspecified osteoarthritis [...] Info) Description 04/20/2025 11:00 AM EST Telemedicine [facility] MED[facility]INE [address] [place] [address] Karla Lewis, DARYN documented as of this encounter Goals Goal Patient Goal Type Associated Problems Recent Progress Patient-Stated? Author Hemoglobin A1c < 7 Result Component 7.4( 5 10:17 AM EDT) No Martine Broussard PharmLexi Record your blood sugar as directed Result Component No Martine Broussard PharmD documented as of this encounter Visit Diagnoses Diagnosis Osteoarthritis of knee, unspecified laterality, unspecified osteoarthritis type documented in this encounter Additional Health Concerns Assessment Noted Time PHQ-9 Depression Total Score: 14 023 1:07 PM EDT documented as of this encounter Care Teams Bricklayer Paving Brick Relationship Specialty Start Date End Date Name, MD Rolf 230 [place] [address] PCP - General Family Medicine 10/21/17 Martine Broussard PharmD [address] [place] [address] Pharmacist Internal Medicine 04/20/23 Martine Broussard PharmD 230 [place] [address] Pharmacist Internal Medicine 04/20/23 08/11/23 documented as of this encounter
--- OUTSIDE RECORDS SUMMARY | 2025-03-15 11:33 | XMS_ITS | Encounter Summary ---
Author Organization [employer] Address [address] [place] [address] [place] [address] Care Team Providers Care Artificial Teeth Inspector Name Role Phone Name, Rolf PARKS Primary Care Provider [phone] Puia, Martine PharmD Unavailable Puia, Martine PharmD Unavailable Reason for Visit * Reason Comments Med Refill Encounter Details Date Type Department Care Team (Late st Contact Info) Description 07/03/2023 Refill [facility] 230 [place], [place] [phone] Name, MD Rolf 230 [place], [place] [phone] Osteoarthritis of knee, unspecified laterality, unspecified osteoarthritis [...] Info) Description 04/20/2025 11:00 AM EST Telemedicine [facility] [address] [place] [address] Karla Lewis RN documented as of this [...] as of this encounter Care Teams Artificial Teeth Inspector Relationship Specialty Start Date End Date Name, MD Rolf [address] [place] [address] PCP - General Family Medicine 10/21/17 Martine Broussard, PharmD [address] [place] [address] Pharmacist Internal Medicine 04/20/23 Martine Broussard, PharmD 230 [place] [address] Pharmacist Internal Medicine 04/20/23 08/11/23 documented as of this encounter
--- OUTSIDE RECORDS SUMMARY | 2025-03-15 11:33 | XMS_ITS | Encounter Summary ---
Author Organization [employer] Address [address] [place] [address] Care Team Providers Care Lumber Straightener Name Role Phone Name, Rolf PARKS Primary Care Provider [phone] Puia, Martine PharmD Unavailable Puia, Martine PharmD Unavailable Reason for Visit * Reason Comments Med Refill Encounter Details Date Type Department Care Team (Late st Contact Info) Description 05/31/2023 Refill [facility] MED[facility]INE 230 [place], [place] [phone] Mary Mcguire DO 230 [place], [place] [phone] Osteoarthritis of knee, unspecified laterality, unspecified osteoarthritis [...] Info) Description 04/20/2025 11:00 AM EST Telemedicine [facility] [address] [place] [address] Karla Lewis RN documented as of this [...] documented as of this encounter Care Teams Lumber Straightener Relationship Specialty Start Date End Date Name, MD Rolf [address] [place] [address] PCP - General Family Medicine 10/21/17 Martine Broussard, PharmD [address] [place] [address] Pharmacist Internal Medicine 04/20/23 Martine Broussard, PharmD [address] [place] [address] Pharmacist Internal Medicine 04/20/23 08/11/23 documented as of this encounter
--- OUTSIDE RECORDS SUMMARY | 2025-03-15 11:33 | XMS_ITS | Encounter Summary ---
Author Organization [employer] Address [address] [place] [address] Care Team Providers Care Inspector Purchased Parts Name Role Phone Name, Rolf PARKS Primary Care Provider [phone] Martine Broussard PharmD Unavailable [phone] Reason for Visit * Reason Onset Date Comments FYI 05/04/2024 Encounter Details Date Type Department Care Team (Late st Contact Info) Description 05/04/2024 Telephone [facility] 230 [place], [place] [phone] Name, MD Rolf 230 [place], [place] [phone] FYI Social History Tobacco Use Types Packs/Day [...] already scheduled for follow up on 05/31/24. [facility] notes sent to medical records. * Telephone Encounter - Funmi Benjamin - 05/04/2024 4:01 PM EST Tc from pt daughter to report pt went to [facility] on 05/03. A knee replacement was performed, laboratories indicated low hemoglobin, low oxygen. A CT scan was also performed and he had an abnormality in the lung. The recommended him to do ctscan in 4 to 5 months. documented in this encounter Plan of Treatment Upcoming Encounters Date Type Department Care Team (Late st Contact Info) Description 04/20/2025 11:00 AM EST Telemedicine [facility] [address] [place] [address] Karla Lewis, RN documented as of this [...] as of this encounter Care Teams Inspector Purchased Parts Relationship Specialty Start Date End Date Name, MD Rolf [address] [place] [address] PCP - General Family Medicine 10/21/17 Martine Broussard, PharmD [address] [place] [address] Pharmacist Internal Medicine 04/20/23 documented as of this encounter
--- OUTSIDE RECORDS SUMMARY | 2025-03-15 11:33 | XMS_ITS | Encounter Summary ---
Author Organization [employer] Address [address] [place] [address] Care Team Providers Care Golf Ball Inspector Name Role Phone Name, Rolf PARKS Primary Care Provider [phone] Martine Broussard PharmD Unavailable Reason for Visit * Reason Comments Med Refill Encounter Details Date Type Department Care Team (Late st Contact Info) Description 04/20/2024 Refill [facility] 230 [place], [place] [phone] Name, MD Rolf 230 [place] [address] Anxiety; Osteoarthritis of knee, unspecified laterality, unspecified osteoarthritis type; Type 2 diabetes mellitus with hyperglycemia, without long-term current use of insulin ([facility]); Iron deficiency [...] Info) Description 04/20/2025 11:00 AM EST Telemedicine [facility] [address] [place] [address] Karla Lewis, RN documented as of this [...] hyperglycemia, without long-term current use of insulin (HCC) Iron deficiency anemia, unspecified iron deficiency anemia type Abnormal chest x-ray Nonspecific (abnormal) findings on radiological and other examination of lung field Tobacco use documented in this encounter Additional Health Concerns Assessment Noted Time PHQ-9 Depression Total Score: 0 12/06/19 24 10:09 AM EDT documented as of this encounter Care Teams Golf Ball Inspector Relationship Specialty Start Date End Date Name, MD Rolf 230 [place] [address] PCP - General Family Medicine 10/21/17 Martine Broussard PharmD 230 [place] [address] Pharmacist Internal Medicine 04/20/23 documented as of this encounter
--- OUTSIDE RECORDS SUMMARY | 2025-03-15 11:33 | XMS_ITS | Encounter Summary ---
Author Organization [employer] Address [address] [place] [address] Care Team Providers Care Fire Pilot Name Role Phone Name, Rolf PARKS Primary Care Provider [phone] Martine Broussard PharmD Unavailable [phone] Reason for Visit * Reason Comments Med Refill Encounter Details Date Type Department Care Team (Late st Contact Info) Description 05/02/2024 Refill [facility] 230 [place], [place] [phone] Name, MD Rolf 230 [place] [address] Osteoarthritis of knee, unspecified laterality, unspecified osteoarthritis [...] [facility] [address] [place] [address] Karla Lewis RN documented as of this [...] as of this encounter Care Teams Fire Pilot Relationship Specialty Start Date End Date Name, MD Rolf [address] [place] [address] PCP - General Family Medicine 10/21/17 Martine Broussard, Paulo [address] [place] [address] [place] [phone] Pharmacist Internal Medicine 04/20/23 documented as of this encounter
--- OUTSIDE RECORDS SUMMARY | 2025-03-15 11:33 | XMS_ITS | Encounter Summary ---
Author Organization [employer] Address [address] [place] [address] Care Team Providers Care Hydrogen Plant Operator Name Role Phone Name, Rolf PARKS Primary Care Provider [phone] Martine Broussard PharmD Unavailable Reason for Visit * Reason Onset Date Comments Durable Medical Equipment 04/05/2024 Encounter Details Date Type Department Care Team (Late st Contact Info) Description 04/05/2024 Telephone [facility] MED[facility]INE 230 [place], [place] [phone] Name, MD Rolf 230 [place], [place] [phone] Durable Medical Equipment Social History Tobacco Use [...] surgery. Pt denies any trouble defers a [facility] appt. Pleasereview and advise, thank you. Tc from pt daughter requesting a Portable toilet due to him falling yesterday and not reaching the bathroom. If any questions contact pt Daughter at [phone] * Telephone Encounter - Kip Grant - 04/05/2024 3:03 PM EST Tc from pt daughter requesting a Portable toilet due to him falling yesterday and not reaching the bathroom. If any questions contact pt Daughter at [phone] documented in this encounter Plan of Treatment Upcoming Encounters Date Type Department Care Team (Late st Contact Info) Description 04/20/2025 11:00 AM EST Telemedicine [facility] MED[facility]INE [address] [place] [address] Karla Lewis, RN documented as of this [...] documented as of this encounter Care Teams Hydrogen Plant Operator Relationship Specialty Start Date End Date Name, MD Rolf [address] [place] [address] PCP - General Family Medicine 10/21/17 Martine Broussard, PharmD [address] [place] [address] Pharmacist Internal Medicine 04/20/23 documented as of this encounter
--- OUTSIDE RECORDS SUMMARY | 2025-03-15 11:33 | XMS_ITS | Encounter Summary ---
Author Organization [employer] Address [address] [place] [address] Care Team Providers Care Mounter Brass Wind Instruments Name Role Phone Name, Rolf PARKS Primary Care Provider [phone] Martine Broussard PharmD Unavailable [phone] Reason for Visit * Reason Comments Med Refill Encounter Details Date Type Department Care Team (Late st Contact Info) Description 05/31/2024 Refill [facility] 230 [place], [place] [phone] Name, MD Rolf 230 [place] [address] Osteoarthritis of both knees, unspecified osteoarthritis type [...] Description 04/20/2025 11:00 AM EST Telemedicine [facility] [address] [place] [address] Karla Lewis, RN documented as of this [...] documented as of this encounter Care Teams Mounter Brass Wind Instruments Relationship Specialty Start Date End Date Name, MD Rolf [address] [place] [address] PCP - General Family Medicine 10/21/17 Martine Broussard, GarrettD [address] [place] [address] Pharmacist Internal Medicine 04/20/23 documented as of this encounter
--- OUTSIDE RECORDS SUMMARY | 2025-03-15 11:33 | XMS_ITS | Encounter Summary ---
Author Organization [employer] Address [address] [place] [address] Care Team Providers Care Vice President Of Business Development Name Role Phone Name, Rolf PARKS Primary Care Provider [phone] Martine Broussard PharmD Unavailable Reason for Visit * Reason Comments Med Refill Encounter Details Date Type Department Care Team (Late st Contact Info) Description 03/01/2024 Refill [facility] 230 [place], [place] [phone] Name, MD Rolf 230 [place] [address] Anxiety; COPD exacerbation (CMS/HCC); Osteoarthritis of knee, [...] Info) Description 04/20/2025 11:00 AM EST Telemedicine [facility] [address] [place] [address] Karla Lewis, RN documented as of this encounter Goals Goal Patient Goal Type Associated Problems Recent Progress Patient-Stated? Author Hemoglobin A1c < 7 Result Component 7.4( 10:17 AM EDT) No Puia, Martine, PharmD Record your blood sugar as directed Result Component No Puia, Martine, PharmD documented as of this encounter Visit Diagnoses Diagnosis Anxiety Anxiety state, unspecified COPD exacerbation (CMS/HCC) (HCC) Obstructive chronic bronchitis with exacerbation Osteoarthritis of knee, unspecified laterality, unspecified osteoarthritis type Chronic pain of left knee documented in this encounter Additional Health Concerns Assessment Noted Time PHQ-9 Depression Total Score: 0 12/06/19 24 10:09 AM EDT documented as of this encounter Care Teams Vice President Of Business Development Relationship Specialty Start Date End Date Name, MD Rolf 230 [place] [address] PCP - General Family Medicine 10/21/17 Martine Broussard PharmD 230 [place] [address] Pharmacist Internal Medicine 04/20/23 documented as of this encounter
--- OUTSIDE RECORDS SUMMARY | 2025-03-15 11:33 | XMS_ITS | Encounter Summary ---
Author Organization [employer] Address [address] [place] [address] [place] [address] Care Team Providers Care Blacktop Paver Operator Name Role Phone Name, Rolf PARKS Primary Care Provider [phone] Martine Broussard PharmD Unavailable [phone] Reason for Visit * Reason Comments Med Refill Encounter Details Date Type Department Care Team (Late st Contact Info) Description 10/06/2023 Refill [facility]INE 230 [place], [place] [phone] Name, MD Rolf 230 [place] [address] Osteoarthritis of knee, unspecified laterality, unspecified osteoarthritis [...] Telemedicine [facility] MEDICINE [address] [place] [address] Karla Lewis, DARYN documented as of this [...] documented as of this encounter Care Teams Blacktop Paver Operator Relationship Specialty Start Date End Date Name, MD Rolf [address] [place] [address] PCP - General Family Medicine 10/21/17 Martine Broussard, PharmD [address] [place] [address] Pharmacist Internal Medicine 04/20/23 documented as of this encounter
--- OUTSIDE RECORDS SUMMARY | 2025-03-15 11:33 | XMS_ITS | Encounter Summary ---
Author Organization [email or web address] Address [address] [place] [address] Care Team Providers Care Supervisor Nuclear Medicine Name Role Phone Name, Rolf PARKS Primary Care Provider [phone] Martine Broussard PharmD Unavailable Reason for Visit * Reason Onset Date Comments Med Refill 05/01/2024 Encounter Details Date Type Department Care Team (Late st Contact Info) Description 05/01/2024 Telephone [facility] MEDICINE [address] [place], [place] [phone] Name, MD Rolf [address] [place], [place] [phone] Med Refill Social History Tobacco Use Types [...] 2:20 PM EST Medication was sent to [facility] #[id number] on 03/06/24 #30 with 3 refills. * Telephone Encounter - sOmar Gonsalez - 05/01/2024 2:15 PM EST TC from pt requesting medication refill. Medications needing refill : traZODone (Desyrel) 50 MG tablet To be sent to: [facility][id number] - [place], [place] - [facility] [facility] documented in this encounter Plan of Treatment Upcoming Encounters Date Type Department Care Team (Late st Contact Info) Description 04/20/2025 11:00 AM EST Telemedicine [facility] MEDICINE [address] [place] [address] Karla Lewis, DARYN documented as of this encounter Goals Goal Patient Goal Type Associated Problems Recent Progress Patient-Stated? Author Hemoglobin A1c < 7 Result Component 7.4( 10:17 AM EDT) No Puia, Martine, PharmD Record your blood sugar as directed Result Component No CarlosiaMartine, PharmD documented as of this encounter Visit Diagnoses Not on filedocumented in this encounter Additional Health Concerns Assessment Noted Time PHQ-9 Depression Total Score: 0 12/06/19 24 10:09 AM EDT documented as of this encounter Care Teams Supervisor Nuclear Medicine Relationship Specialty Start Date End Date Name, MD Rolf [address] [place] [address] PCP - General Family Medicine 10/21/17 Martine Broussard, PharmD [address] [place] [address] Pharmacist Internal Medicine 04/20/23 documented as of this encounter
--- OUTSIDE RECORDS SUMMARY | 2025-03-15 11:33 | XMS_ITS | Encounter Summary ---
Author Organization [employer] Address [address] [place] [address] [place] [address] Care Team Providers Care Replacer Name Role Phone Name, Rolf PARKS Primary Care Provider Martine Broussard PharmD Unavailable [phone] Reason for Visit * Reason Comments Med Refill Encounter Details Date Type Department Care Team (Late st Contact Info) Description 04/03/2024 Refill [facility] MEDICINE 230 [place], [place] [phone] Name, MD Rolf [address] [place] [address] Abnormal chest x-ray; Tobacco use; Type 2 diabetes mellitus with hyperglycemia, without long-term current use of insulin ([facility]); Osteoarthritis of knee, unspecified laterality, unspecified osteoarthritis [...] Info) Description 04/20/2025 11:00 AM EST Telemedicine [facility] MEDICINE [address] [place] [address] Karla Lewis, DARYN documented as of this [...] without long-term current use of insulin (HCC) Osteoarthritis of knee, unspecified laterality, unspecified osteoarthritis type Iron deficiency anemia, unspecified iron deficiency anemia type documented in this encounter Additional Health Concerns Assessment Noted Time PHQ-9 Depression Total Score: 0 12/06/19 24 10:09 AM EDT documented as of this encounter Care Teams Replacer Relationship Specialty Start Date End Date Name, MD Rolf [address] [place] [address] PCP - General Family Medicine 10/21/17 Martine Broussard PharmD [address] [place] [address] Pharmacist Internal Medicine 04/20/23 documented as of this encounter
--- OUTSIDE RECORDS SUMMARY | 2025-03-15 11:33 | XMS_ITS | Encounter Summary ---
Author Organization [employer] Address [address] [place] [address] [place] [address] Care Team Providers Care Ict Quality Assurance Engineer Name Role Phone Name, Rolf PARKS Primary Care Provider [phone] Puia, Martine PharmD Unavailable [phone] Puia, Martine PharmD Unavailable Reason for Visit * Reason Comments Med Refill Encounter Details Date Type Department Care Team (Late st Contact Info) Description 07/21/2023 Refill [facility] MEDICINE 230 [place], [place] [phone] Name, MD Rolf 230 [place], [place] [phone] Type 2 diabetes mellitus with hyperglycemia, without long-term current use of insulin ([facility]); Iron deficiency anemia, unspecified iron [...] Info) Description 04/20/2025 11:00 AM EST Telemedicine [facility] MEDICINE [address] [place] [address] Karla Lewis, DARYN documented as of this [...] documented as of this encounter Care Teams Ict Quality Assurance Engineer Relationship Specialty Start Date End Date Name, MD Rolf [address] [place] [address] PCP - General Family Medicine 10/21/17 Martine Broussard, PharmD [address] [place] [address] Pharmacist Internal Medicine 04/20/23 Martine Broussard, Paulo [address] [place] [address] Pharmacist Internal Medicine 04/20/23 08/11/23 documented as of this encounter
--- OUTSIDE RECORDS SUMMARY | 2025-03-15 11:33 | XMS_ITS | Encounter Summary ---
Author Organization [employer] Address [address] [place] [address] Floor [address] Care Team Providers Care Rental Clerk Name Role Phone Name, Rolf PARKS Primary Care Provider [phone] Puia, Martine PharmD Unavailable Puia, Martine PharmD Unavailable Reason for Visit * Reason Comments Med Refill Encounter Details Date Type Department Care Team (Late st Contact Info) Description 06/28/[address] [facility] MEDICINE 230 [place], [place] [phone] Name, MD Rolf 230 [place], [place] [phone] Osteoarthritis of knee, unspecified laterality, unspecified osteoarthritis [...] Description 04/20/2025 11:[address] [facility] [address] [place] [address] Karla Lewis RN documented as of this [...] documented as of this encounter Care Teams Rental Clerk Relationship Specialty Start Date End Date Name, MD Rolf [address] [place] [address] PCP - General Family Medicine 10/21/17 Martine Broussard, PharmD [address] [place] [address] Pharmacist Internal Medicine 04/20/23 Martine Broussard, PharmD 230 [place] [address] Pharmacist Internal Medicine 04/20/23 08/11/23 documented as of this encounter
--- OUTSIDE RECORDS SUMMARY | 2025-03-15 11:33 | XMS_ITS | Encounter Summary ---
Author Organization [email or web address] Address [address] [place] [address] Care Team Providers Care [facility] Owner Name Role Phone Name, Rolf PARKS Primary Care Provider [phone] Martine Broussard PharmD Unavailable [phone] Reason for Visit * Reason Comments Med Refill Encounter Details Date Type Department Care Team (Late st Contact Info) Description 03/21/2024 Refill [facility] MEDICINE 230 [place], [place] [phone] Name, MD Rolf 230 [place] [address] Osteoarthritis of knee, unspecified laterality, unspecified osteoarthritis [...] Info) Description 04/20/2025 11:00 AM EST Telemedicine [facility] MEDICINE [address] [place] [address] Karla Lewis RN documented as of this [...] documented as of this encounter Care Teams [facility] Owner Relationship Specialty Start Date End Date Name, MD Rolf 230 [place], [place] [phone] PCP - General Family Medicine 10/21/17 Martine Broussard, Paulo [address] [place] [address] [place] [address] Pharmacist Internal Medicine 04/20/23 documented as of this encounter
--- OUTSIDE RECORDS SUMMARY | 2025-03-15 11:33 | XMS_ITS | Encounter Summary ---
Author Organization [employer] Address [address] [place] [address] Care Team Providers Care Bookkeeping Clerk Name Role Phone Name, Rolf PARKS Primary Care Provider [phone] Martine Broussard PharmD Unavailable Reason for Visit * Reason Comments Med Refill Encounter Details Date Type Department Care Team (Late st Contact Info) Description 03/08/2024 Refill [facility] MEDICINE 230 [place] [address] Vivian Barajas, ANP 230 [place] [address] Diabetes mellitus type 2 with neurological manifestations [...] Info) Description 04/20/2025 11:00 AM EST Telemedicine [facility] MEDICINE [address] [place] [address] Karla Lewis, RN documented as of this [...] documented as of this encounter Care Teams Bookkeeping Clerk Relationship Specialty Start Date End Date Name, MD Rolf 230 [place] [address] PCP - General Family Medicine 10/21/17 Martine Broussard, Paulo [address] [place] [address] Pharmacist Internal Medicine 04/20/23 documented as of this encounter
--- OUTSIDE RECORDS SUMMARY | 2025-03-15 11:33 | XMS_ITS | Encounter Summary ---
Author Organization [employer] Address [address] [place] [address] Care Team Providers Care Vending Mechanic Name Role Phone Name, Rolf PARKS Primary Care Provider Martine Broussard PharmD Unavailable [phone] Reason for Visit * Reason Comments Med Refill Encounter Details Date Type Department Care Team (Late st Contact Info) Description 04/03/2024 Refill [facility] MEDICINE 230 [place] [address] Marcela Ruiz NP 230 [place] [address] Osteoarthritis of knee, unspecified laterality, unspecified osteoarthritis [...] Description 04/20/2025 11:00 AM EST Telemedicine [facility] MEDICINE [address] [place] [address] Karla Lewis, RN documented as of this [...] documented as of this encounter Care Teams Vending Mechanic Relationship Specialty Start Date End Date Name, MD Rolf 230 [place] [address] PCP - General Family Medicine 10/21/17 Martine Broussard, Paulo [address] [place] [address] Pharmacist Internal Medicine 04/20/23 documented as of this encounter
--- OUTSIDE RECORDS SUMMARY | 2025-03-15 11:33 | XMS_ITS | Encounter Summary ---
Author Organization [employer] Address [address] [place] [address] Care Team Providers Care Dynamometer Tuner Name Role Phone Name, Rolf PARKS Primary Care Provider [phone] Matrine Broussard PharmD Unavailable [phone] Reason for Visit * Reason Comments Med Refill Encounter Details Date Type Department Care Team (Late st Contact Info) Description 03/23/2024 Refill [facility] MEDICINE 230 [place] [address] Vivian Barajas, ANP 230 [place] [address] Diabetes mellitus type 2 with neurological manifestations [...] Info) Description 04/20/2025 11:00 AM EST Telemedicine [facility] MEDICINE [address] [place] [address] Karla Lewis, RN documented as of this [...] documented as of this encounter Care Teams Dynamometer Tuner Relationship Specialty Start Date End Date Name, MD Rolf 230 [place] [address] PCP - General Family Medicine 10/21/17 Martine Broussard, Paulo [address] [place] [address] Pharmacist Internal Medicine 04/20/23 documented as of this encounter
--- OUTSIDE RECORDS SUMMARY | 2025-03-15 11:33 | XMS_ITS | Encounter Summary ---
Author Organization [employer] Address [address] [place] [address] Care Team Providers Care Brewery Worker Name Role Phone Name, Rolf PARKS Primary Care Provider [phone] Martine Broussard PharmD Unavailable [phone] Reason for Visit * Reason Comments Med Refill Encounter Details Date Type Department Care Team (Late st Contact Info) Description 03/08/2024 Refill [facility] MEDICINE [address] [place], [place] [phone] Name, MD Rolf 230 [place] [address] Osteoarthritis of knee, unspecified laterality, unspecified osteoarthritis [...] Info) Description 04/20/2025 11:00 AM EST Telemedicine [facility] MEDICINE [address] [place] [address] Karla Lewis, RN documented as of this [...] documented as of this encounter Care Teams Brewery Worker Relationship Specialty Start Date End Date Name, MD Rolf [address] [place] [address] PCP - General Family Medicine 10/21/17 Martine Broussard, Paulo [address] [place] [address] Pharmacist Internal Medicine 04/20/23 documented as of this encounter
--- OUTSIDE RECORDS SUMMARY | 2025-03-15 11:33 | XMS_ITS | Encounter Summary ---
Author Organization [employer] Address [address] [place] [address] Care Team Providers Care Ct Tech Name Role Phone Name, Rolf PARKS Primary Care Provider [phone] Martine Broussard PharmD Unavailable [phone] Reason for Visit * Reason Comments Med Refill Encounter Details Date Type Department Care Team (Late st Contact Info) Description 04/03/[address] [facility] MEDICINE 230 [place] [address] Vivian Barajas, ANP 230 [place] [address] Diabetes mellitus type 2 with neurological manifestations [...] 04/20/2025 11:00 AM EST Telemedicine [facility] MEDICINE [address] [place] [address] Karla Lewis, RN documented as of this [...] documented as of this encounter Care Teams Ct Tech Relationship Specialty Start Date End Date Name, MD Rolf 230 [place] [address] PCP - General Family Medicine 10/21/17 Martine Broussard, Paulo [address] [place] [address] Pharmacist Internal Medicine 04/20/23 documented as of this encounter
--- OUTSIDE RECORDS SUMMARY | 2025-03-15 11:33 | XMS_ITS | Encounter Summary ---
Author Organization [employer] Address [address] [place] [address] Care Team Providers Care French Translator Name Role Phone Name, Rolf PARKS Primary Care Provider Martine Broussard PharmD Unavailable [phone] Reason for Visit * Reason Comments Med Refill Encounter Details Date Type Department Care Team ([facility] st Contact Info) Description 03/23/2024 Refill [facility] MEDICINE 230 [place], [place] [phone] Name, MD Rolf 230 [place] [address] Anxiety Social History Tobacco Use Types Packs/Day [...] Info) Description 04/20/2025 11:00 AM EST Telemedicine [facility] MEDICINE 230 [place] [address] Karla Lewis, DARYN documented as of this [...] documented as of this encounter Care Teams French Translator Relationship Specialty Start Date End Date Name, MD Rolf 230 [place] [address] PCP - General Family Medicine 10/21/17 Martine Broussard, GarrettD [address] [place] [address] Pharmacist Internal Medicine 04/20/23 documented as of this encounter
--- OUTSIDE RECORDS SUMMARY | 2025-03-15 11:33 | XMS_ITS | Encounter Summary ---
Author Organization [employer] Address [address] [place] [address] Care Team Providers Care Airport Maintenance Chief Name Role Phone Name, Rolf PARKS Primary Care Provider [phone] Martine Broussard PharmD Unavailable [phone] Reason for Visit * Reason Onset Date Comments Medication Question 05/17/2024 Encounter Details Date Type Department Care Team ([facility] st Contact Info) Description 05/17/2024 Telephone [facility] MEDICINE 230 [place], [place] [phone] Name, MD Rolf 230 [place], [place] [phone] Medication Question Social History Tobacco Use Types [...] - 05/19/2024 12:37 PM EST TC vis [facility]#[id number], daughter updated on covering PCP/Dr Hilliard's temporary [...] tablets X 7 days from [facility], [address] [place] [address]. Pt had also received RX on 05/05/[address] Gamble for his chronic pain medications Percocet 5mg #56 tablets. On 05/17/24 Spoke with Daughter, who is patients TICKET MANAGER as well, and advised she was not to use his Percocet RX from Dr Gamble, only use the pain medication from surgeons office. Advised daughter to call surgeons office for further postop pain medication orders if needed. Return TC via [facility]#[id number], daughter states that surgeons office is no [...] 05/17/2024 12:45 PM EST Return TC via [facility]#[id number], spoke with daughter Annetta, corinne advised Percocet [...] dosage of medication. Please contact Daughter at [phone]. (Bruneian Speaker) documented in this encounter Plan of Treatment Upcoming Encounters Date Type Department Care Team (Late st Contact Info) Description 04/20/2025 11:00 AM EST Telemedicine [facility] MEDICINE [address] [place] [address] Karla Lewis RN documented as of this [...] documented as of this encounter Care Teams Airport Maintenance Chief Relationship Specialty Start Date End Date Name, MD Rolf [address] [place] [address] PCP - General Family Medicine 10/21/17 Martine Broussard, PharmD [address] [place] [address] Pharmacist Internal Medicine 04/20/23 documented as of this encounter
--- OUTSIDE RECORDS SUMMARY | 2025-03-15 11:33 | XMS_ITS | Encounter Summary ---
Author Organization [employer] Address [address] [place] [address] [place] [address] Care Team Providers Care Concrete Saw Operator Name Role Phone Name, Rolf PARKS Primary Care Provider [phone] Puia, Martine PharmD Unavailable Puia, Martine PharmD Unavailable Reason for Visit * Reason Comments Med Refill Encounter Details Date Type Department Care Team (Late st Contact Info) Description 07/12/2023 Refill [facility] MEDICINE 230 [place], [place] [phone] Name, MD Rolf 230 [place], [place] [phone] Anxiety Social History Tobacco Use Types Packs/Day [...] Info) Description 04/20/2025 11:00 AM EST Telemedicine [facility] MEDICINE [address] [place] [address] Karla Lewis RN documented as of this encounter Goals Goal Patient Goal Type Associated Problems Recent Progress Patient-Stated? Author Hemoglobin A1c < 7 Result Component 7.4( 10:17 AM EDT) No PuMartine camarillo, PharmD Record your blood sugar as directed Result Component No Martine Broussard, PharmD documented as of this encounter Visit Diagnoses Diagnosis Anxiety Anxiety state, unspecified documented in this encounter Additional Health Concerns Assessment Noted Time PHQ-9 Depression Total Score: 14 023 1:07 PM EDT documented as of this encounter Care Teams Concrete Saw Operator Relationship Specialty Start Date End Date Name, MD Rolf [address] [place] [address] PCP - General Family Medicine 10/21/17 Martine Broussard, PharmD [address] [place] [address] Pharmacist Internal Medicine 04/20/23 Martine Broussard, PharmD [address] [place] [address] Pharmacist Internal Medicine 04/20/23 08/11/23 documented as of this encounter
--- OUTSIDE RECORDS SUMMARY | 2025-03-15 11:33 | XMS_ITS | Encounter Summary ---
Author Organization [employer] Address [address] [place] [address] [place] [address] Care Team Providers Care Security Public Safety Officer Name Role Phone Name, Rolf PARKS Primary Care Provider [phone] Martine Broussard PharmD Unavailable [phone] Reason for Visit * Reason Comments Med Refill Encounter Details Date Type Department Care Team (Late st Contact Info) Description 09/15/2023 Refill [facility]INE 230 [place], [place] [phone] Name, MD Rolf 230 [place] [address] Osteoarthritis of knee, unspecified laterality, unspecified osteoarthritis [...] Info) Description 04/20/2025 11:00 AM EST Telemedicine [facility]ICINE [address] [place] [address] Karla Lewis, DARYN documented as of this [...] as of this encounter Care Teams Security Public Safety Officer Relationship Specialty Start Date End Date Name, MD Rolf [address] [place] [address] PCP - General Family Medicine 10/21/17 Martine Broussard, PharmD [address] [place] [address] Pharmacist Internal Medicine 04/20/23 documented as of this encounter
--- OUTSIDE RECORDS SUMMARY | 2025-03-15 11:33 | XMS_ITS | Encounter Summary ---
Author Organization [employer] Address [address] [place] [address] [place] [address] Care Team Providers Care Senior Ruby Developer Name Role Phone Name, Rolf PARKS Primary Care Provider [phone] Puia, Martine PharmD Unavailable Puia, Martine PharmD Unavailable [phone] Reason for Visit * Reason Comments Med Refill Encounter Details Date Type Department Care Team (Late st Contact Info) Description 07/16/2023 Refill [facility] MEDICINE 230 [place], [place] [phone] Name, MD Rolf 230 [place], [place] [phone] Osteoarthritis of knee, unspecified laterality, unspecified osteoarthritis [...] Telemedicine [facility] MEDICINE [address] [place] [address] Karla Lewis RN documented as of this [...] as of this encounter Care Teams Senior Ruby Developer Relationship Specialty Start Date End Date Name, MD Rolf [address] [place] [address] PCP - General Family Medicine 10/21/17 Martine Broussard, PharmD [address] [place] [address] Pharmacist Internal Medicine 04/20/23 Martine Broussard, PharmD 230 [place] [address] Pharmacist Internal Medicine 04/20/23 08/11/23 documented as of this encounter
--- OUTSIDE RECORDS SUMMARY | 2025-03-15 11:33 | XMS_ITS | Encounter Summary ---
Author Organization [employer] Address [address] [place] [address] Care Team Providers Care Metal Ceiling Builder Name Role Phone Name, Rolf PARKS Primary Care Provider [phone] Martine Broussard PharmD Unavailable Reason for Visit * Reason Onset Date Comments Prior Authorization 04/25/2024 Encounter Details Date Type Department Care Team (Late st Contact Info) Description 04/25/2024 Telephone [facility] MEDICINE 230 [place], [place] [phone] Name, MD Rolf 230 [place], [place] [phone] Prior Authorization Social History Tobacco Use Types [...] - 04/25/2024 9:51 AM EST Tc from [facility] stating Diclofenac Sodium 1 % gel need a PA. documented in this encounter Plan of Treatment Upcoming Encounters Date Type Department Care Team (Late st Contact Info) Description 04/20/2025 11:00 AM EST Telemedicine [address] [address] Karla Lewis RN documented as of this [...] as of this encounter Care Teams Metal Ceiling Builder Relationship Specialty Start Date End Date Name, MD Rolf 230 [place] [address] PCP - General Family Medicine 10/21/17 Martine Broussard PharmD 230 [place] [address] Pharmacist Internal Medicine 04/20/23 documented as of this encounter
--- OUTSIDE RECORDS SUMMARY | 2025-03-15 11:34 | XMS_ITS | Encounter Summary ---
Author Organization [employer] Address [address] [place] [address] [place] [address] Care Team Providers Care Tool Shaper Set Up Operator Name Role Phone Name, Rolf PARKS Primary Care Provider [phone] Martine Broussard PharmD Unavailable Reason for Visit * Reason Comments Med Refill Encounter Details Date Type Department Care Team (Late st Contact Info) Description 11/08/2023 Refill [facility] MEDICINE 230 [place], [place] [phone] Name, MD Rolf 230 [place] [address] Anxiety; Chronic pain of left knee Social [...] [facility] MEDICINE [address] [place] [address] Karla Lewis, DARYN documented as of this [...] documented as of this encounter Care Teams Tool Shaper Set Up Operator Relationship Specialty Start Date End Date Name, MD Rolf [address] [place] [address] PCP - General Family Medicine 10/21/17 Martine Broussard, PharmD [address] [place] [address] Pharmacist Internal Medicine 04/20/23 documented as of this encounter
--- OUTSIDE RECORDS SUMMARY | 2025-03-15 11:34 | XMS_ITS | Encounter Summary ---
Author Organization [employer] Address [address] [place] [address] Care Team Providers Care Photogrammetric Technician Name Role Phone Name, Rolf PARKS Primary Care Provider [phone] Martine Broussard PharmD Unavailable Reason for Visit * Reason Comments Med Refill Encounter Details Date Type Department Care Team (Late st Contact Info) Description 2023 Refill [facility] MEDICINE [address] [place] [address] Vivian Barajas, ANP 230 [place] [address] Diabetes mellitus type 2 with neurological manifestations [...] Description 04/20/2025 11:00 AM EST Telemedicine [facility] MEDICINE [address] [place] [address] Karla Lewis RN documented as of this [...] documented as of this encounter Care Teams Photogrammetric Technician Relationship Specialty Start Date End Date Name, MD Rolf [address] [place] [address] PCP - General Family Medicine 10/21/17 Puia, Martine, PharmD [address] [place] [phone] Pharmacist Internal Medicine 04/20/23 documented as of this encounter
--- OUTSIDE RECORDS SUMMARY | 2025-03-15 11:34 | XMS_ITS | Encounter Summary ---
Author Organization [employer] Address [address] [place] [address] Care Team Providers Care Cabin Worker Name Role Phone Name, Rolf PARKS Primary Care Provider [phone] Martine Broussard PharmD Unavailable Reason for Visit * Reason Comments Med Refill Encounter Details Date Type Department Care Team (Late st Contact Info) Description 01/11/2024 Refill [facility] MEDICINE [address] [place] [address] Vivian Barajas, ANP 230 [place] [address] Diabetes mellitus type 2 with neurological manifestations [...] Info) Description 04/20/2025 11:00 AM EST Telemedicine [facility] MEDICINE [address] [place] [address] Karla Lewis, RN documented as of this [...] documented as of this encounter Care Teams Cabin Worker Relationship Specialty Start Date End Date Name, MD Rolf [address] [place] [address] PCP - General Family Medicine 10/21/17 Martine Broussard, Paulo [address] [place] [address] Pharmacist Internal Medicine 04/20/23 documented as of this encounter
--- OUTSIDE RECORDS SUMMARY | 2025-03-15 11:34 | XMS_ITS | Encounter Summary ---
Author Organization [email or web address] Address [address] [place] [address] Care Team Providers Care Strategic Alliances Manager Name Role Phone Name, Rolf PARKS Primary Care Provider [phone] Martine Broussard PharmD Unavailable [phone] Reason for Visit * Reason Comments Med Refill Encounter Details Date Type Department Care Team (Late st Contact Info) Description 01/14/2024 Refill [facility] MEDICINE 230 [place], [place] [phone] Name, MD Rolf 230 [place] [address] Anxiety; Osteoarthritis of knee, unspecified laterality, unspecified [...] 04/20/2025 11:00 AM EST Telemedicine [facility] MEDICINE [address] [place] [phone] Karla Lewis RN documented as of this [...] documented as of this encounter Care Teams Strategic Alliances Manager Relationship Specialty Start Date End Date Name, MD Rolf [address] [place] [address] PCP - General Family Medicine 10/21/17 Martine Broussard, GarrettD 230 [place] [address] Pharmacist Internal Medicine 04/20/23 documented as of this encounter
--- OUTSIDE RECORDS SUMMARY | 2025-03-15 11:34 | XMS_ITS | Encounter Summary ---
Author Organization [employer] Address [address] [place] [address] [place] [address] Care Team Providers Care Compensation Vice President Name Role Phone Name, Rolf PARKS Primary Care Provider [phone] Martine Broussard PharmD Unavailable Reason for Visit * Reason Comments Med Refill Encounter Details Date Type Department Care Team (Late st Contact Info) Description 11/02/2023 Refill [facility] MEDICINE 230 [place], [place] [phone] Name, MD Rolf 230 [place] [address] Anxiety; Chronic pain of left knee Social [...] Description 04/20/2025 11:00 AM EST Telemedicine [facility] MEDICINE [address] [place] [phone] Karla Lewis, DARYN documented as of this [...] documented as of this encounter Care Teams Compensation Vice President Relationship Specialty Start Date End Date Name, MD Rolf [address] [place] [address] PCP - General Family Medicine 10/21/17 Martine Broussard, PharmD [address] [place] [address] Pharmacist Internal Medicine 04/20/23 documented as of this encounter
--- OUTSIDE RECORDS SUMMARY | 2025-03-15 11:34 | XMS_ITS | Encounter Summary ---
Author Organization [employer] Address [address] [place] [address] Care Team Providers Care Real Estate Sales Agent Name Role Phone Name, Rolf PARKS Primary Care Provider [phone] Martine Broussard PharmD Unavailable Encounter Details Date Type Department Care Team ([facility] st Contact Info) Description 08/31/2024 Telephone [facility] MEDICINE 230 [place], [place] [phone] Name, MD Rolf 230 [place] [address] Social History Tobacco Use Types Packs/Day Years [...] Description 04/20/2025 11:00 AM EST Telemedicine [facility] MEDICINE [address] [place] [address] Karla Lewis RN documented as of this [...] documented as of this encounter Care Teams Real Estate Sales Agent Relationship Specialty Start Date End Date Name, MD Rolf [address] [place] [address] PCP - General Family Medicine 10/21/17 Puia, Martine, PharmD [address] [place] [phone] Pharmacist Internal Medicine 04/20/23 documented as of this encounter
--- OUTSIDE RECORDS SUMMARY | 2025-03-15 11:34 | XMS_ITS | Clinical Summary ---
Author Organization [employer] Address [address] [place] [address] [place] [address] Care Team Providers Care Instant Potato Processing Supervisor Name Role Phone Name, Rolf PARKS Primary Care Provider [phone] Martine Broussard PharmD Unavailable [phone] Allergies No known active allergies Medications escitalopram (Lexapro) 10 MG tabletIndications :Depression with anxiety TAKE 1 TABLET(10 MG) BY MOUTH IN THE MORNING 30 tablet 2 023 Active Blood Glucose Monitoring Suppl (ONE TOUCH ULTRA 2) w/Device kitIndications:Ty pe 2 diabetes mellitus with hyperglycemia, without long-term current use of insulin (HCC) Use once a day 1 kit 024 [...] without long-term current use of insulin (HCC) Take 1 tablet (40 mg) by mouth Once per day. 30 tablet 11 024 2024 Active Umeclidinium Monarch (Incruse Ellipta) 62.5 MCG/ACT aerosol powder Inhale [...] hyperglycemia, without long-term current use of insulin ([facility]) TAKE 1 TABLET BY MOUTH TWICE A DAY WITH MORNING AND EVENING MEALS 60 tablet Active glucose blood (OneTouch Ultra) test stripIndications: Type 2 diabetes mellitus with hyperglycemia, without long-term current use of insulin ([facility]) USE ONCE DAILY (BULK) 50 strip Active Lancets (OneTouch Delica Plus [id number]) miscIndications:T ype 2 diabetes mellitus with hyperglycemia, without long-term current use of insulin ([facility]) USE ONCE DAILY (BULK) 100 each Active metoprolol succinate XL (Toprol XL) 25 MG 24 hr tablet Take 1 tablet (25 mg) by mouth Once per day. Do not crush or chew. 30 tablet 2025 Active losartan (Cozaar) 25 MG tabletIndications :Chronic HFrEF (heart failure with reduced ejection fraction) (HCC) Take 1 tablet (25 mg) by mouth Once per day. 90 tablet 025 2025 Active empagliflozin (Jardiance) 25 MG Take 1 tablet (25 mg) by mouth Once per day. 30 tablet 11 025 2025 Active Diclofenac Sodium 1 % gelIndications:Os teoarthritis of knee, unspecified laterality, unspecified osteoarthritis type APPLY 4 GRAMS TOPICALLY TO THE AFFECTED KNEE TWICE A DAY (BULK) 100 g 3 Active gabapentin (Neurontin) 300 MG capsuleIndication s:Chronic pain of both knees TAKE 1 CAPSULE BY MOUTH TWICE DAILY 60 capsule Active Fluticasone-Salme terol 500-50 MCG/ACT aerosol powderIndications :COPD exacerbation (CMS/HCC) ([facility]) INHALE ONE PUFF BY MOUTH TWICE A DAY (BULK) 60 each 5 Active FeroSul 325 (65 Fe) MG tabletIndications :Iron deficiency anemia, unspecified iron deficiency anemia type TAKE ONE TABLET BY MOUTH EVERY OTHER DAY 15 tablet 1 Active ibuprofen 600 MG tablet TAKE ONE TABLET BY MOUTH IF NEEDED IN THE MORNING, AT NOON, AND AT BEDTIME FOR MILD PAIN FOR UP TO 10 DAYS (VIAL) 30 tablet 025 Active traZODone (Desyrel) 50 MG tabletIndications :Osteoarthritis of both knees, unspecified osteoarthritis type TAKE ONE TABLET BY MOUTH EVERY EVENING AT BEDTIME (VIAL) 30 tablet 3 025 Active clonazePAM (KlonoPIN) 2 MG tabletIndications :Chronic insomnia TAKE ONE TABLET BY MOUTH EVERY EVENING AT BEDTIME NEEDED (VIAL) Do not start before March 06, 2025. 28 tablet 025 Active oxyCODONE-acetami nophen (Percocet) 5-325 MG tabletIndications :S/P TKR (total knee replacement), left Take 1 tablet by mouth every 12 (twelve) hours if needed for severe pain for up to 28 days. Do not start before March 13, 2025. 56 tablet 025 2024 Active Fluticasone-Salme terol 500-50 MCG/ACT aerosol powderIndications :COPD exacerbation (CMS/HCC) ([facility]) INHALE ONE PUFF BY MOUTH TWICE A DAY (BULK) 60 each 5 025 2024 Discontinued traZODone (Desyrel) 50 MG tabletIndications :Osteoarthritis of both knees, unspecified osteoarthritis type TAKE ONE TABLET BY MOUTH EVERY EVENING AT BEDTIME (VIAL) 30 tablet 3 025 2024 Discontinued sodium zirconium cyclosilicate (Lokelma) 5 g packetIndications :Hyperkalemia Take 5 g by mouth Once per day. 75 g 1 025 2024 ferrous sulfate (FeroSul) 325 (65 Fe) MG tabletIndications :Iron deficiency anemia, unspecified iron deficiency anemia type TAKE ONE TABLET BY MOUTH EVERY OTHER DAY (VIAL) 15 tablet 1 025 2024 Discontinued gabapentin (Neurontin) 300 MG capsuleIndication s:Chronic pain of both knees TAKE 1 CAPSULE BY MOUTH TWICE A DAY 60 capsule 025 2024 Discontinued ibuprofen 600 MG tablet TAKE ONE TABLET BY MOUTH IF NEEDED IN THE MORNING, AT NOON, AND AT BEDTIME FOR MILD PAIN FOR UP TO 10 DAYS (VIAL) 30 tablet 025 2024 Discontinued clonazePAM (KlonoPIN) 2 MG tabletIndications :Chronic insomnia TAKE ONE TABLET BY MOUTH EVERY EVENING AT BEDTIME NEEDED (VIAL) Do not start before February 06, 2025. 28 tablet 025 2024 Discontinued oxyCODONE-acetami nophen (Percocet) 5-325 MG tabletIndications :S/P TKR (total knee replacement), left TAKE ONE TABLET BY MOUTH EVERY 12 HOURS NEEDED FOR SEVERE PAIN (VIAL) 56 tablet 025 2024 Discontinued(R eorder (will not trigger notification to Pharmacy)) Active Problems Problem Noted Date Diagnosed Date Long-term current use of opiate analgesic 2024 Chronic HFrEF (heart failure with reduced ejection fraction) 06/09/2024 Overview (06/09/2024): [address] [address] Cardiology Report Signed Patient: Hong Gutierrez MR#: [id number] : 1955 Acct:[id number] Age/Sex: 68 / M ADM Date: 06/07/24 [facility] Dr: Rolf Gamble MD Ordering Physician: Rolf Gamble MD Date of Service: 06/07/24 Procedure(s): CA echo transthorac w con Accession Number(s): cc: Name,Rolf PARKS Transthoracic Echocardiogram Patient (Last, First, Middle): Hong Gutierrez, Gender: Male Date of : 1955 Age: 68 Procedure Date: 06/07/2024 Procedure Type: Transthoracic Echocardiogram Location: OP Height: 180.34 cm Weight: 81.65 kg BSA: 2.02 m2 Heart Rate: bpm BP: 110 / 70 mmHg Superintendent Meters: MATTHIAS Referring MD: Rolf Gamble MD Strategic Partnership Specialist: Beck Cruz MD Symptoms: CARDIOMEGALY I51.7 Study Quality: Adequate with contrast ECG Rhythm: Sinus Conclusions: - 1. Udsp-af-sclnnwlz LV systolic dysfunction with LVEF of 40-45% [...] 5.90 PHT: 39.00 MVA PHT: 5.64 Decel [address]t: 3.60 Aortic Valve AoV Pk Manish: 1.64 [...] Tobacco dependence 04/08/2023 ILD (interstitial lung disease) ([facility]) 2022 Long-term current use of benzodiazepine 01/01/20 23 Chronic low back pain 07/29/2022 Hyperlipidemia 07/29/2022 Knee pain 06/24/2022 Cervical myelopathy ([facility]) 12/17/2017 Anxiety 10/21/2017 Bilateral cataracts 10/21/2017 Diabetes mellitus 10/21/2017 Osteoarthritis of knee 10/21/2017 Assessment & Plan (12/09/2022 5:28 PM EDT): -Acute on chronic knee pain -Continue following with [facility], plan for viscosupplementation once approved through health insurance -Describes pain as severe, not sufficiently responding to APAP and tramadol. -Requesting in office IM toradol. History of resolved GI bleed, reports recent eval through [facility] with endoscopy and colonoscopy that were [...] Encounters Date Type Department Care Team Description 03/12/2025 Refill [facility] MEDICINE [address] [place] [address] Rolf Gamble MD S/P TKR (total knee replacement), left 03/09/2025 Refill [facility] MEDICINE [address] [place] [address] Rolf Gamble MD Chronic insomnia; Iron deficiency anemia, unspecified iron deficiency anemia type 03/05/2025 Refill [facility] MEDICINE [address] [place] [address] Felicia Law NP Chronic insomnia 03/02/2025 10:00 AM EDT Office Visit [facility] MED[facility]INE [address] [place] [address] Rolf Gamble MD Diabetes mellitus type 2 with neurological manifestations (HCC) (Primary Dx); Chronic HFrEF (heart failure with reduced ejection fraction) (HCC); Chronic pain of both knees; Encounter for vaccination 03/02/2025 Travel 03/01/2025 Telephone [facility] [address] [place], [place] [phone] Rolf Gamble MD Chart Prep 02/27/2025 Refill [facility] MEDICINE [address] [place] [address] Rolf Gamble MD COPD exacerbation (CMS/HCC) (HCC); Iron deficiency anemia, unspecified iron deficiency anemia type; Osteoarthritis of both knees, unspecified osteoarthritis type; S/P TKR (total knee replacement), left 02/19/2025 Refill [facility] MEDICINE [address] [place] [address] NameRolf MD Chronic pain of both knees 02/07/2025 Refill [facility] [address] [place] [address] NameRolf MD Iron deficiency anemia, unspecified iron deficiency anemia type; COPD exacerbation ([facility]) ([facility]); Osteoarthritis of both knees, unspecified osteoarthritis type 02/07/2025 Refill [facility] [address] [place] [address] Felicia Law NP Chronic insomnia 02/06/2025 Refill [facility] [address] [place] [address] NameRolf MD S/P TKR (total knee replacement), left 02/05/2025 Refill [facility] [address] [place] [address] NameRolf MD Chronic insomnia 02/01/2025 Telephone [facility] MEDIC[facility] [address] [place] [address] NameRolf MD Results 01/31/2025 Refill [facility] [address] [place] [address] NameRolf MD Chronic insomnia 01/31/2025 Refill [facility] [address] [place] [address] NameRolf MD Chronic insomnia 01/26/2025 10:30 AM EDT Telemedicine [facility] MEDICINE [address] [place] [address] Karla Lewis RN Long-term current use of opiate analgesic 01/26/2025 Travel 01/23/2025 Telephone [facility] MED[facility]INE [address] [place] [address] NameRolf MD Med Refill; Telephone Matthew 01/22/2025 Telephone [facility]INE [address] [place] [address] NameRolf MD Durable Medical Equipment 01/18/2025 Refill [facility] MEDICINE [address] [place] [address] Name, MD Rolf Chronic pain of both knees 01/11/2025 Refill [facility] [address] [place] [address] Name, MD Rolf Chronic insomnia 01/09/2025 Refill [facility] [address] [place] [address] Name, MD Rolf S/P TKR (total knee replacement), left 01/05/2025 Refill [facility] [address] [place] [address] Name, MD Rolf Osteoarthritis of knee, unspecified laterality, unspecified osteoarthritis type 01/04/2025 Refill [facility] [address] [place] [address] Name, MD Rolf Iron deficiency anemia, unspecified iron deficiency anemia type 01/04/2025 Refill [facility] [address] [place] [address] Name, MD Rolf Chronic insomnia 01/03/2025 Refill [facility] [address] [place] [address] Name, MD Rolf 12/20/2024 Telephone [facility] [address] [place] [address] Name, MD Rolf Med Refill from Last 3 Months Immunizations Immunization Administration Dates Next Due Hep B, adult 09/10/2023,08/13/2023 Influenza High-dose Quadriva lent Preservative Free 02/10/2023 Influenza injectable quadriv alent IIV4 with preservative 02/08/2019 Influenza injectable quadriv alent preservative free 07/20/2022,06/03/2018 Influenza, High Dose Seasona l, Preservative Free 03/02/2025,03/06/2024 Influenza, IIV3, injectable 03/23/2017, 2 Moderna Covid-19 Vaccine 6+ Bivalent 07/20/2022 Pfizer Covid-19 Vaccine 12+ 03/02/2025, 4,04/07/2023 Pneumococcal Conjugate PCV 20 12/04/2022 Pneumococcal Polysaccharide [...] Sign Reading Time Taken Comments Blood Pressure 132/86 03/02/2025 10:12 AM EDT Pulse 109 03/02/2025 10:12 AM EDT Temperature 36.4 C (97.5 F) 03/02/2025 10:12 AM EDT Respiratory Rate 14 03/02/2025 10:12 AM EDT Oxygen Saturation 91% 03/02/2025 10:12 AM EDT Inhaled Oxygen Concentration - - Weight 85.9 kg (189 lb 6.4 oz) 03/02/2025 10:12 AM EDT Height 180.3 cm (5' 11 ) 03/02/2025 10:12 AM EDT Body Mass Index 26.42 03/02/2025 10:12 AM EDT Plan of Treatment Upcoming Encounters Date Type Department Care Team (Late st Contact Info) Description 04/20/2025 11:00 AM EST Telemedicine [facility] MEDICINE [address] [place] [address] Karla Lewis, RN Health Maintenance Due Date Last Done Comments CT Colonography 1955 FIT DNA/Cologuard 1955 FIT 1955 FOBT 1955 Sigmoidoscopy 1955 Hepatitis C Screening 1974 Hepatitis B Vaccines (3 of 3 - 19+ 3-dose series) 02/12/2024 09/10/2023, 08/13/2023 Eye Exam 06/01/2025 06/01/2023, 12/03/2011 Diabetes: Hemoglobin A1C 06/02/2025 025, 11/29/2024, 05/31/2024, Additional history exists Colonoscopy 06/26/2025 06/26/2022, 06/03, 06/18/2022 Colorectal Cancer Screening 06/26/2025 Lipid Panel 08/24/2025 08/24/2024, 12/01, 03/08/2023 COVID-19 Vaccine ( season) 2025 03/02/2025, 03/06/2024, 04/07/2023, Additional history exists Alcohol/Substance Use Screening 11/29/2025 11/29/2024 Depression Screening 11/29/2025 11/29/2024, 11/30/19 Diabetes: Foot Exam 11/29/2025 11/29/2024, 02/10/2023, 02/10/2023, Additional history exists SDOH Screening 11/29/2025 11/29/2024 Diabetes: Urine Protein Screening 12/05/2025 12/05/2024, 12/13/2023, 03/08/2023, Additional history exists Tobacco Screening 03/02/2026 03/02/2025 DTaP/Tdap/Td Vaccines (3 - Td or Tdap) 02/10/2033 02/10/2023, 09/25/2011 Pneumococcal Vaccine: 50+ Years Completed 12/04/2022, 12/25/2011, 10/02/2010 RSV Patients and Patients Aged 60 years or older Completed 04/20/2023 Zoster Vaccines Completed 06/23/2023, 04/20/2023 Influenza Vaccine Completed 03/02/2025, , 02/10/2023, Additional history exists HIB Vaccines Aged Out [...] Name Priority Date/Time Associated Diagnosis Comments POCT GLYCATED HEMOGLOBIN, TOTAL Routine 03/02/2025 10:17 AM EDT Diabetes mellitus type 2 with neurological manifestations (HCC) POCT GLUCOSE Routine 03/02/2025 10:17 AM EDT Diabetes mellitus type 2 with neurological manifestations (HCC) BASIC METABOLIC PANEL Routine 01/26/2025 11:41 AM EDT Hyperkalemia BASIC METABOLIC PANEL Routine 12/15/2024 10:26 AM EDT Hyperkalemia ALBUMIN, RANDOM URINE W/CREATININE Routine 12/05/2024 11:13 [...] to Health Maintenance Results * (ABNORMAL) POCT Hgb A1c (03/02/2025 10:17 AM EDT) Hemoglobin A1C 7.4(A) 4.0 - 5.7 % QC Media Lot # [id number] Lot# Expiration Date 41,627 Blood 03/02/2025 10:1 7 AM EDT us Rolf Name POINT OF CARE TEST ENTER/EDIT OR DERABLES Final Result * POCT Glucose (03/02/2025 10:17 AM EDT) Glucose Blood, POC 170 60 - 200 mg/dL QC Media Lot # [id number] Lot# Expiration Date 31,126 Blood Capillary blood specimen / Unknown 03/02/2025 10:17 AM EDT us Rolf Gamble MD POINT OF CARE TEST ENTER/EDIT OR DERABLES Final Result * (ABNORMAL) Basic Metabolic Panel (01/26/2025 11:41 AM EDT) Only the most recent of2 resultswithin the time period is included. Sodium 143 135 - 145 mmol/L [facility] Potassium 5.1 3.3 - 5.1 mmol/L [facility] Chloride 103 96 - 108 mmol/L [facility] Carbon Dioxide 30(H) 22 - 29 mmol/L [facility] Anion Gap 15 12 - 20 [facility] Urea Nitrogen (BUN) 23(H) 9 - 16 mg/dL [facility] Creatinine, Serum 1.09 0.5 - 1.4 mg/dL [facility] Estimated Glomerular Filt Rate >60 [facility] Comment:Chronic Kidney Disea se: Estimated GFR < 60 mL/min/1.49y5Fgiogl Kidney Disease: Estimated GFR < 15 mL/min/1.73m2 Glucose 218(H) 60 - 115 mg/dL [facility] Calcium 10.1 8.4 - 10.2 mg/dL [facility] Blood Venous blood specimen / Unknown 01/26/2025 11:41 AM EDT 01/26/2025 12:58 PM EDT us Rolf Gamble MD LAB BLOOD ORDERABLES Final Resul t [facility] [address] [place] [phone] * Albumin, Random Urine W/Creatinine (12/05/2024 11:13 AM EDT) Creatinine, Urine 207.82 mg/dL [facility] Microalbumin Urine 54.0 mg/L [facility] Microalbum Creatinine Ratio Ur 25.9 <30 ug/mg cr [facility] Comment:Albumin/Creatinine R atio Reference Ranges: Normal: < 30 ug/mg creatinine Microalbuminuria: 30 - 300 ug/mg creatinineClinical Albuminuria: > 300 ug/mg creatinine Urine (Urine, Random) 12/05/2024 11:13 AM EDT 12/05/2024 1:04 PM EDT Marty Kelly MANAGER PHARMACY LAB URINE ORDERABLES Shira l Result Performing Organization Address City/[facility]/ZIP Co de Phone Number [facility] [address] [place] [phone] * (ABNORMAL) Lipid Panel, Standard (08/24/2024 9:57 AM EDT) Triglycerides 101 <150 mg/dL [facility] Comment:Desirable Triglyceri de: less than 150 mg/dLBorderline High Triglyceride 150-199 mg/dLHigh Triglyceride: 200-499 mg/dLVery High Triglyceride: greater than or equal to 5OO mg/dL Cholesterol 145 <200 mg/dL [facility] Comment:Desirable Cholestero l: less than 200 mg/dLBorderline High Cholesterol: 200-239 mg/dLHigh Cholesterol: greater than 239 mg/dL LDL Cholesterol Calculated 85 <100 mg/dL [facility] Comment:Desirable LDL: less than 100 mg/dLNear Optimal/Above Optimal LDL: 110- 129 mg/dLBorderline High LDL: 130-159 mg/dLHigh LDL: 160-189 mg/dLVery High LDL: greater than or equal to 190 mg/dL HDL Cholesterol 40(L) >40 mg/dL [facility] Comment:Desirable HDL: great er than 40 mg/dL Note: This HDL assay may give artificially low results in patients with liver disease. Blood Venous blood specimen / Unknown 08/24/2024 9:57 AM EDT 08/24/2024 11:19 AM EDT Rolf Gamble MD LAB BLOOD ORDERABLES Final Resul t Performing Organization Address City/[facility]/ZIP Co de Phone Number [facility] [address] [place] [phone] * Hm Colonoscopy (06/26/2022) Colonoscopy PERFORMED Comment:REPEAT IN 3 YEARS us Historical Provider HEALTH MAINTENANCE Final Result from Last 3 Months or Most Recently Relevant to Health Maintenance Insurance [facility] [employer] (HMO D-SNP) Care Teams Instant Potato Processing Supervisor Relationship Specialty Start Date End Date Name, MD Rolf [address] [place] [phone] PCP - General Family Medicine 10/21/17 Martine Broussard, GarrettD [address] [place] [phone] Pharmacist Internal Medicine 04/20/23
--- OUTSIDE RECORDS SUMMARY | 2025-03-15 11:34 | XMS_ITS | Encounter Summary ---
Author Organization [employer] Address [address] [place] [address] [place] [address] Care Team Providers Care Weld Fitter Name Role Phone Name, Rolf PARKS Primary Care Provider [phone] Martine Broussard PharmD Unavailable Reason for Visit * Reason Onset Date Comments Med Refill 11/24/2023 Encounter Details Date Type Department Care Team (Late st Contact Info) Description 11/24/2023 Telephone [facility] 230 [place], [place] [phone] Name, MD Rolf 230 [place], [place] [phone] Med Refill Social History Tobacco Use Types [...] 10:44 AM EDT Medication was sent to [facility] #[id number] on 10/21/23 #30 with 1 refill. * Telephone Encounter - Nela Whalen - 11/24/2023 10:42 AM EDT TC from pt requesting medication refill. Medications needing refill : traZODone (Desyrel) 50 MG tablet To be sent to: [facility] #[id number] [place] [address] [address] AT [facility] documented in this encounter Plan of Treatment Upcoming Encounters Date Type Department Care Team (Late st Contact Info) Description 04/20/2025 11:00 AM EST Telemedicine [facility] [address] [place] [address] Karla Lewis RN documented as of this [...] documented as of this encounter Care Teams Weld Fitter Relationship Specialty Start Date End Date Name, MD Rolf [address] [place] [address] PCP - General Family Medicine 10/21/17 Martine Broussard PharmD 230 [place] [address] Pharmacist Internal Medicine 04/20/23 documented as of this encounter
--- OUTSIDE RECORDS SUMMARY | 2025-03-15 11:34 | XMS_ITS | Encounter Summary ---
Author Organization [employer] Address [address] [place] [address] Care Team Providers Care Dairy Specialist Name Role Phone Name, Rolf PARKS Primary Care Provider [phone] Martine Broussard PharmD Unavailable [phone] Reason for Visit * Reason Comments Med Refill Encounter Details Date Type Department Care Team (Late st Contact Info) Description 12/06/2023 Refill [facility] 230 [place], [place] [phone] Name, MD Rolf 230 [place] [address] Anxiety; Chronic pain of left knee Social [...] Questionnaire -2 Score 0 12/06/2023 10:09 AM Edward Moses * Over the past 2 weeks, [...] at all 12/06/2023 10:09 AM EDT Ruth Sacnhez Thoughts that you would be better off or hurting yourself in some way Not at all 12/06/2023 10:09 AM EDT Xochilt Doyle Patient Health Questionnaire -9 Score 0 12/06/2023 10:09 AM EDT Edward Doyle documented as of this encounter Plan of Treatment Upcoming Encounters Date Type Department Care Team (Late st Contact Info) Description 04/20/2025 11:00 AM EST Telemedicine [facility] [address] [place] [address] Karla Lewis, RN documented as of this [...] documented as of this encounter Care Teams Dairy Specialist Relationship Specialty Start Date End Date Name, MD Rolf [address] [place] [address] PCP - General Family Medicine 10/21/17 Martine Broussard, PharmD [address] [place] [address] Pharmacist Internal Medicine 04/20/23 documented as of this encounter
--- OUTSIDE RECORDS SUMMARY | 2025-03-15 11:34 | XMS_ITS | Encounter Summary ---
Author Organization [employer] Address [address] [place] [address] [place] [address] Care Team Providers Care Occupational Psychologist Name Role Phone Name, Rolf PARKS Primary Care Provider [phone] Martine Broussard PharmD Unavailable Reason for Visit * Reason Onset Date Comments Paperwork/Forms 11/09/2023 Encounter Details Date Type Department Care Team (Late st Contact Info) Description 11/09/2023 Telephone [facility]INE 230 [place], [place] [phone] Name, MD Rolf 230 [place], [place] [phone] Paperwork/Forms Social History Tobacco Use Types Packs/Day Years Used Date Smoking Tobacco: Former Cigarettes Passive Smoke Exposure: Never Smokeless Tobacco: Never Alcohol Use Standard Drinks/Week Comments Yes 0 (1 standard drink = 0.6 oz pur e alcohol) occassional Depression Answer Date Recorded Patient Health Questionnaire-9 Score 14 07/20/2022 Housing Stability Answer Date Recorded What is your housing situation today? I have irya taylor 02/15/[address] you [...] - 11/09/2023 9:20 AM EDT Tc from [place] [facility] requesting the status of the PCP order Form as well as a copy of the patients physical documented in this encounter Plan of Treatment Upcoming Encounters Date Type Department Care Team (Late st Contact Info) Description 04/20/2025 11:00 AM EST Telemedicine [facility] MED[facility]INE 230 [place] [address] Karla Lewis, DARYN documented as of this [...] documented as of this encounter Care Teams Occupational Psychologist Relationship Specialty Start Date End Date Name, MD Rolf 230 [place] [address] PCP - General Family Medicine 10/21/17 Puia, Martine, PharmD [address] [place] [address] Pharmacist Internal Medicine 04/20/23 documented as of this encounter
--- OUTSIDE RECORDS SUMMARY | 2025-03-15 11:34 | XMS_ITS | Encounter Summary ---
Author Organization [employer] Address [address] [place] [address] Care Team Providers Care Algebra Tutor Name Role Phone Name, Rolf PARKS Primary Care Provider [phone] Martine Broussard PharmD Unavailable [phone] Reason for Visit * Reason Onset Date Comments Call Back Request 12/15/2023 Encounter Details Date Type Department Care Team ([facility] st Contact Info) Description 12/15/2023 Telephone [facility] MED[facility]INE 230 [place], [place] [phone] Name, MD Rolf 230 [place], [place] [phone] Call Back Request Social History Tobacco Use [...] Info) Description 04/20/2025 11:00 AM EST Telemedicine [facility]INE [address] [place] [address] Karla Lewis, RN documented as of this [...] documented as of this encounter Care Teams Algebra Tutor Relationship Specialty Start Date End Date Name, MD Rolf [address] [place] [address] PCP - General Family Medicine 10/21/17 Martine Broussard, PharmD [address] [place] [address] Pharmacist Internal Medicine 04/20/23 documented as of this encounter
--- OUTSIDE RECORDS SUMMARY | 2025-03-15 11:34 | XMS_ITS | Encounter Summary ---
Author Organization [employer] Address [address] [place] [address] [place] [address] Care Team Providers Care Field Aide Name Role Phone Name, Rolf PARKS Primary Care Provider [phone] Martine Broussard PharmD Unavailable [phone] Reason for Visit * Reason Onset Date Comments Med Refill 11/16/2023 Encounter Details Date Type Department Care Team (Late st Contact Info) Description 11/16/2023 Telephone [facility] MEDICINE 230 [place], [place] [phone] Name, MD Rolf 230 [place], [place] [phone] Med Refill Social History Tobacco Use Types [...] 2 MG tablet To be sent to: [facility][id number] [place] [address] [address]ON[address] AT [facility] documented in this encounter Plan of Treatment Upcoming Encounters Date Type Department Care Team (Late st Contact Info) Description 04/20/2025 11:00 AM EST Telemedicine [facility] MED[facility]INE [address] [place] [address] Karla Lewis, DARYN documented as of this [...] as of this encounter Care Teams Field Aide Relationship Specialty Start Date End Date Name, MD Rolf 230 [place] [address] PCP - General Family Medicine 10/21/17 Martine Broussard PharmD [address] [place] [address] Pharmacist Internal Medicine 04/20/23 documented as of this encounter
--- OUTSIDE RECORDS SUMMARY | 2025-03-15 11:34 | XMS_ITS | Encounter Summary ---
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 Author Hemoglobin A1c < 7 Result Component 7.4( 10:17 AM EDT) No Maritne Broussard, PharmD Record your blood sugar as directed Result Component No Martine Broussard, PharmD documented as of this encounter Visit Diagnoses Diagnosis Diabetes mellitus type 2 with neurological manifestations (HCC) documented in this encounter Additional Health Concerns Assessment Noted Time PHQ-9 Depression Total Score: 14 023 1:07 PM EDT documented as of this encounter Care Teams Illusionist Relationship Specialty Start Date End Date Name, MD Rolf [address] [place] [address] PCP - General Family Medicine 10/21/17 Martine Broussard, PharmD [address] [place] [address] Pharmacist Internal Medicine 04/20/23 documented as of this encounter
--- OUTSIDE RECORDS SUMMARY | 2025-03-15 11:34 | XMS_ITS | Encounter Summary ---
Author Organization [employer] Address [address] [place] [address] Care Team Providers Care Buttonhole Machine Operator Name Role Phone Name, Rolf PARKS Primary Care Provider [phone] Martine Broussard PharmD Unavailable [phone] Reason for Visit * Reason Comments Med Refill Encounter Details Date Type Department Care Team (Late st Contact Info) Description 05/24/2024 Refill [facility] MED[facility]INE 230 [place], [place] [phone] Name, MD Rolf 230 [place] [address] Osteoarthritis of both knees, unspecified osteoarthritis type [...] Info) Description 04/20/2025 11:00 AM EST Telemedicine [facility]INE 230 [place] [address] Karla Lewis, RN documented as of this [...] documented as of this encounter Care Teams Buttonhole Machine Operator Relationship Specialty Start Date End Date Name, MD Rolf 230 [place] [address] PCP - General Family Medicine 10/21/17 Martine Broussard, GarrettD [address] [place] [address] Pharmacist Internal Medicine 04/20/23 documented as of this encounter
--- OUTSIDE RECORDS SUMMARY | 2025-03-15 11:34 | XMS_ITS | Encounter Summary ---
Author Organization [employer] Address [address] [place] [address] Care Team Providers Care Business Strategy Manager Name Role Phone Name, Rolf PARKS Primary Care Provider [phone] Martine Broussard PharmD Unavailable [phone] Reason for Visit * Reason Comments Med Refill Encounter Details Date Type Department Care Team (Late st Contact Info) Description 09/13/2024 Refill [facility]INE 230 [place], [place] [phone] Name, MD Rolf 230 [place], [place] [phone] S/P TKR (total knee replacement), left Social [...] Info) Description 04/20/2025 11:00 AM EST Telemedicine [facility]INE 230 [place] [address] Karla Lewis RN documented as of this [...] documented as of this encounter Care Teams Business Strategy Manager Relationship Specialty Start Date End Date Name, MD Rolf 230 [place] [address] PCP - General Family Medicine 10/21/17 Martine Broussard, Paulo [address] [place] [address] Pharmacist Internal Medicine 04/20/23 documented as of this encounter
--- OUTSIDE RECORDS SUMMARY | 2025-03-15 11:34 | XMS_ITS | Encounter Summary ---
Author Organization [employer] Address [address] [place] [address] [place] [address] Care Team Providers Care Bottom Painter Name Role Phone Name, Rolf PARKS Primary Care Provider [phone] Martine Broussard PharmD Unavailable Reason for Visit * Reason Onset Date Comments Nurse Triage 11/16/2023 Encounter Details Date Type Department Care Team (Late st Contact Info) Description 11/16/2023 Telephone [facility]INE 230 [place], [place] [phone] Name, MD Rolf 230 [place], [place] [phone] Nurse Triage Social History Tobacco Use Types [...] Back pain. Daughter advised of disposition, offered [facility] today. Daughter declines only wants pt seen by PCP. Advised nothing sooner than already booked follow up in December. Per daughter was told Dr. Gamble would be at [facility] on 11/23. Advised unable to guarantee [...] Info) Description 04/20/2025 11:00 AM EST Telemedicine [facility]INE [address] [place] [address] Karla Lewis RN documented as of this [...] documented as of this encounter Care Teams Bottom Painter Relationship Specialty Start Date End Date Name, MD Rolf [address] [place] [address] PCP - General Family Medicine 10/21/17 Puia, Martine, PharmD [address] [place] [address] Pharmacist Internal Medicine 04/20/23 documented as of this encounter
--- OUTSIDE RECORDS SUMMARY | 2025-03-15 11:34 | XMS_ITS | Encounter Summary ---
Author Organization [employer] Address [address] [place] [address] Care Team Providers Care Garageman Name Role Phone Name, Rolf PARKS Primary Care Provider Martine Broussard PharmD Unavailable [phone] Reason for Visit * Reason Comments Med Refill Encounter Details Date Type Department Care Team (Late st Contact Info) Description 05/23/2024 Refill [facility] MEDICINE 230 [place] [address] Felicia Law NP 230 [place] [address] Anxiety Social History Tobacco Use Types Packs/Day [...] Info) Description 04/20/2025 11:00 AM EST Telemedicine [facility]INE 230 [place] [address] Karla Lewis, DARYN documented as of this [...] documented as of this encounter Care Teams Garageman Relationship Specialty Start Date End Date Name, MD Rolf [address] [place] [address] PCP - General Family Medicine 10/21/17 Martine Broussard, GarrettD [address] [place] [address] Pharmacist Internal Medicine 04/20/23 documented as of this encounter
--- OUTSIDE RECORDS SUMMARY | 2025-03-15 11:34 | XMS_ITS | Encounter Summary ---
Author Organization [employer] Address [address] [place] [address] Care Team Providers Care Analytical Research Program Manager Name Role Phone Name, Rolf PARKS Primary Care Provider Martine Broussard PharmD Unavailable Reason for Visit * Reason Comments Med Refill Encounter Details Date Type Department Care Team (Late st Contact Info) Description 11/15/2024 Refill [facility] MEDICINE 230 [place], [place] [phone] Name, MD Rolf 230 [place] [address] Chronic pain of both knees; Osteoarthritis of [...] Description 04/20/2025 11:00 AM EST Telemedicine [facility] MEDICINE [address] [place] [address] Karla Lewis RN documented as of this [...] documented as of this encounter Care Teams Analytical Research Program Manager Relationship Specialty Start Date End Date Name, MD Rolf [address] [place] [address] [phone] PCP - General Family Medicine 10/21/17 Martine Broussard, Paulo [address] [place] [address] [place] [address] Pharmacist Internal Medicine 04/20/23 documented as of this encounter
--- OUTSIDE RECORDS SUMMARY | 2025-03-15 11:34 | XMS_ITS | Encounter Summary ---
Author Organization [employer] Address [address] [place] [address] Care Team Providers Care Manufacturing Engineering Professor Name Role Phone Name, Rolf PARKS Primary Care Provider [phone] Martine Broussard PharmD Unavailable Reason for Visit * Reason Comments Med Refill Encounter Details Date Type Department Care Team ([facility] st Contact Info) Description 11/19/2023 Refill [facility] MED[facility]INE 230 [place], [place] [phone] Name, MD Rolf 230 [place] [address] Anxiety Social History Tobacco Use Types Packs/Day [...] Description 04/20/2025 11:00 AM EST Telemedicine [facility]INE [address] [place] [address] Karla Lewis RN documented as of this [...] as of this encounter Care Teams Manufacturing Engineering Professor Relationship Specialty Start Date End Date Name, MD Rolf [address] [place] [address] PCP - General Family Medicine 10/21/17 Puia, Martine, PharmD [address] [place] [address] Pharmacist Internal Medicine 04/20/23 documented as of this encounter
--- OUTSIDE RECORDS SUMMARY | 2025-03-15 11:34 | XMS_ITS | Encounter Summary ---
Author Organization [employer] Address [address] [place] [address] Care Team Providers Care Sock Lining Examiner Name Role Phone Name, Rolf PARKS Primary Care Provider [phone] Martine Broussard PharmD Unavailable [phone] Reason for Visit * Reason Comments Med Refill Encounter Details Date Type Department Care Team (Late st Contact Info) Description 12/08/2023 Refill [facility]INE 230 [place], [place] [phone] Name, MD Rolf 230 [place] [address] Anxiety; Chronic pain of left knee Social [...] Info) Description 04/20/2025 11:00 AM EST Telemedicine [facility] 230 [place] [address] Karla Lewis RN documented as of this [...] documented as of this encounter Care Teams Sock Lining Examiner Relationship Specialty Start Date End Date Name, MD Rolf 230 [place] [address] PCP - General Family Medicine 10/21/17 Puia, Martine, PharmD 230 [place] [address] Pharmacist Internal Medicine 04/20/23 documented as of this encounter
--- OUTSIDE RECORDS SUMMARY | 2025-03-15 11:34 | XMS_ITS | Encounter Summary ---
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
--- OUTSIDE RECORDS SUMMARY | 2025-03-15 11:34 | XMS_ITS | Encounter Summary ---
Author Organization [employer] Address [address] [place] [address] Care Team Providers Care Dough Braker Name Role Phone Name, Rolf PARKS Primary Care Provider [phone] Martine Broussard PharmD Unavailable [phone] Reason for Visit * Reason Comments Med Refill Encounter Details Date Type Department Care Team (Late st Contact Info) Description 10/06/2024 Refill [facility] MEDICINE 230 [place], [place] [phone] Name, MD Rolf 230 [place], [place] [phone] S/P TKR (total knee replacement), left Social [...] Telemedicine [facility] MEDICINE 230 [place] [address] Karla Lewis RN documented as of this [...] documented as of this encounter Care Teams Dough Braker Relationship Specialty Start Date End Date Name, MD Rolf 230 [place] [address] PCP - General Family Medicine 10/21/17 Martine Broussard, Paulo [address] [place] [address] Pharmacist Internal Medicine 04/20/23 documented as of this encounter
--- OUTSIDE RECORDS SUMMARY | 2025-03-15 11:34 | XMS_ITS | Encounter Summary ---
Author Organization [employer] Address [address] [place] [address] Care Team Providers Care Body Sander Name Role Phone Name, Rolf PARKS Primary Care Provider [phone] Martine Broussard PharmD Unavailable [phone] Reason for Visit * Reason Comments Med Refill Encounter Details Date Type Department Care Team ([facility] st Contact Info) Description 11/17/2023 Refill [facility] MEDICINE 230 [place], [place] [phone] Name, MD Rolf 230 [place] [address] Anxiety Social History Tobacco Use Types Packs/Day [...] Telemedicine [facility] MEDICINE [address] [place] [address] Karla Lewis RN documented as of this [...] documented as of this encounter Care Teams Body Sander Relationship Specialty Start Date End Date Name, MD Rolf [address] [place] [address] PCP - General Family Medicine 10/21/17 Puia, Martine, PharmD [address] [place] [address] Pharmacist Internal Medicine 04/20/23 documented as of this encounter
--- OUTSIDE RECORDS SUMMARY | 2025-03-15 11:34 | XMS_ITS | Encounter Summary ---
Author Organization [employer] Address [address] [place] [address] Care Team Providers Care Claims Clerk Name Role Phone Name, Rolf PARKS Primary Care Provider [phone] Martine Broussard PharmD Unavailable [phone] Reason for Visit * Reason Comments Med Refill Encounter Details Date Type Department Care Team (Late st Contact Info) Description 11/09/2024 Refill [facility] MEDICINE 230 [place], [place] [phone] Name, MD Rolf 230 [place], [place] [phone] S/P TKR (total knee replacement), left Social [...] Description 04/20/2025 11:00 AM EST Telemedicine [facility] MEDICINE 230 [place] [address] Karla Lewis RN documented as of this [...] documented as of this encounter Care Teams Claims Clerk Relationship Specialty Start Date End Date Name, MD Rolf 230 [place] [address] PCP - General Family Medicine 10/21/17 Martine Broussard, Paulo [address] [place] [address] Pharmacist Internal Medicine 04/20/23 documented as of this encounter
--- OUTSIDE RECORDS SUMMARY | 2025-03-15 11:35 | XMS_ITS | Encounter Summary ---
Author Organization [employer] Address [address] [place] [address] Care Team Providers Care Manager Sales Name Role Phone Name, Rolf PARKS Primary Care Provider [phone] Martine Broussard PharmD Unavailable Reason for Visit * Reason Comments Med Refill Encounter Details Date Type Department Care Team (Late st Contact Info) Description 12/24/2023 Refill [facility] MEDICINE 230 [place] [address] Vivian Barajas, ANP 230 [place] [address] Diabetes mellitus type 2 with neurological manifestations [...] EST Telemedicine [facility] MEDICINE 230 [place] [address] Karla Lewis RN documented as of this [...] as of this encounter Care Teams Manager Sales Relationship Specialty Start Date End Date Name, MD Rolf 230 [place] [address] PCP - General Family Medicine 10/21/17 Puia, Martine, PharmD [address] [place] [address] Pharmacist Internal Medicine 04/20/23 documented as of this encounter
--- OUTSIDE RECORDS SUMMARY | 2025-03-15 11:35 | XMS_ITS | Clinical Summary ---
Author Organization [employer] [facility] ity Address [address] [place] [address] Care Team Providers Care Shook Splicer Name Role Phone Poppy Hernandez MD Primary Care Provider Social History Tobacco Use Types Packs/Day Years Used Date Smoking Tobacco: Never Assessed Sex and Gender Information Value Date Recorded Sex Assigned at Not on file Legal Sex Male 4:32 AM EST Gender Identity Not on file Sexual Orientation Not on file Plan of Treatment Health Maintenance Due Date Last Done Comments Colorectal Cancer Screening: Colonoscopy 1956 Diabetes: Annual GFR (Glomer ular Filtration Rate) 1956 Diabetes: Annual Foot Exam 1966 Diabetes: Annual Retina Eye Exam 1966 Zoster Vaccines (1 of 2) 2006 Pneumococcal Vaccine: 50+ Ye ars (2 of 2 - PCV) 10/03/2011 10/02/2010 DTaP,Tdap,and Td Vaccines (2 - Td or Tdap) 09/24/2021 09/25/2011 Abdominal Aortic Aneurysm (A AA) Screen 04/05/2022 Cholesterol Screening (Lipid Panel) 04/05/2022 Falls Risk Assessment 04/05/2022 Hepatitis C Screening 04/05/2022 Social Influencers of Health Screening 04/05/2022 Diabetes: Annual Urine Albumin-Creatinine Ratio (uACR) 04/16/2022 Diabetes: Blood Sugar Contro l Test (HGBA1C) 04/16/2022 Hypertension/CHF/CAD Annual BMP Blood Test 04/16/2022 Depression Screening 05/03/2024 COVID-19 Vaccine ( - 2024-2 6 season) 2025 Influenza Vaccine (#1) 2025 03/22/2012 [...] age to complete this topic Care Teams Shook Splicer Relationship Specialty Start Date End Date Poppy Hernandez MD [address] [place] [address] PCP - General Internal Medicine 06/03/17
--- OUTSIDE RECORDS SUMMARY | 2025-03-15 11:35 | XMS_ITS | Encounter Summary ---
Author Organization [facility] [employer] Address [address] [place] [address] Care Team Providers Care Security Solutions Architect Name Role Phone Name, Rolf PARKS Primary Care Provider [phone] Martine Broussard PharmD Unavailable Reason for Visit * Reason Comments Med Refill Encounter Details Date Type Department Care Team (Late st Contact Info) Description 02/01/2024 Refill [facility] MEDICINE 230 [place], [place] [phone] Name, MD Rolf [address] [place] [address] Osteoarthritis of knee, unspecified laterality, unspecified osteoarthritis [...] Info) Description 04/20/2025 11:00 AM EST Telemedicine [facility] MEDICINE [address] [place] [address] Karla Lewis RN documented as of this [...] as of this encounter Care Teams Security Solutions Architect Relationship Specialty Start Date End Date Name, MD Rolf [address] [place] [address] PCP - General Family Medicine 10/21/17 Martine Broussard, GarrettD [address] [place] [address] Pharmacist Internal Medicine 04/20/23 documented as of this encounter
--- OUTSIDE RECORDS SUMMARY | 2025-03-15 11:35 | XMS_ITS | Encounter Summary ---
Author Organization [employer] Address [address] [place] [address] Care Team Providers Care Explosive Ordnance Disposal Specialist Name Role Phone Name, Rolf PARKS Primary Care Provider [phone] Martine Broussard PharmD Unavailable [phone] Reason for Visit * Reason Comments Med Refill Encounter Details Date Type Department Care Team ([facility] st Contact Info) Description 12/12/2024 Refill [facility] MEDICINE 230 [place] [address] Marcela Ruiz NP 230 [place] [address] Chronic insomnia Social History Tobacco Use Types [...] 04/20/2025 11:00 AM EST Telemedicine [facility] MEDICINE 230 [place] [address] Karla Lewis, DARYN documented as of this [...] documented as of this encounter Care Teams Explosive Ordnance Disposal Specialist Relationship Specialty Start Date End Date Name, MD Rolf [address] [place] [address] PCP - General Family Medicine 10/21/17 Martine Broussard, PharmD [address] [place] [address] Pharmacist Internal Medicine 04/20/23 documented as of this encounter
--- OUTSIDE RECORDS SUMMARY | 2025-03-15 11:35 | XMS_ITS | Encounter Summary ---
Author Organization [employer] Address [address] [place] [address] Care Team Providers Care Civil Rights Investigator Name Role Phone Name, Rolf PARKS Primary Care Provider [phone] Martine Broussard PharmD Unavailable Reason for Visit * Reason Comments Med Refill Encounter Details Date Type Department Care Team (Late st Contact Info) Description 01/14/2024 Refill [facility] MEDICINE 230 [place] [address] Vivian Barajas, ANP [address] [place] [address] Diabetes mellitus type 2 with neurological manifestations [...] 04/20/2025 11:00 AM EST Telemedicine [facility] MEDICINE 230 [place] [address] Karla Lewis, RN documented as of this [...] documented as of this encounter Care Teams Civil Rights Investigator Relationship Specialty Start Date End Date Name, MD Rolf [address] [place] [address] PCP - General Family Medicine 10/21/17 Martine Broussard, Paulo [address] [place] [address] Pharmacist Internal Medicine 04/20/23 documented as of this encounter
--- OUTSIDE RECORDS SUMMARY | 2025-03-15 11:35 | XMS_ITS | Encounter Summary ---
Author Organization [employer] Address [address] [place] [address] 7 [place] [address] Care Team Providers Care Qa Developer Name Role Phone Name, Rolf PARKS Primary Care Provider [phone] Martine Broussard PharmD Unavailable Reason for Visit * Reason Comments Med Refill Encounter Details Date Type Department Care Team (Late st Contact Info) Description 07/27/2024 Refill [facility] & PEDS [address] [place] [address] Name, MD Rolf [address] [place] [address] Osteoarthritis of knee, unspecified laterality, unspecified osteoarthritis [...] 04/20/2025 11:00 AM EST Telemedicine [facility] MEDICINE [address] [place] [address] Karla Lewis, RN documented as of this encounter Goals Goal Patient Goal Type Associated Problems Recent Progress Patient-Stated? Author Hemoglobin A1c < 7 Result Component 7.4( 10:17 AM EDT) No Puia, Martine, PharmD Record your blood sugar as directed Result Component No Puia, Martine, PharmD documented as of this encounter Visit Diagnoses Diagnosis Osteoarthritis of knee, unspecified laterality, unspecified osteoarthritis type COPD exacerbation (CMS/HCC) (HCC) Obstructive chronic bronchitis with exacerbation documented in this encounter Additional Health Concerns Assessment Noted Time PHQ-9 Depression Total Score: 0 12/06/19 24 10:09 AM EDT documented as of this encounter Care Teams Qa Developer Relationship Specialty Start Date End Date Name, MD Rolf [address] [place] [address] PCP - General Family Medicine 10/21/17 Martine Broussard, GarrettD [address] [place] [address] Pharmacist Internal Medicine 04/20/23 documented as of this encounter
--- OUTSIDE RECORDS SUMMARY | 2025-03-15 11:35 | XMS_ITS | Encounter Summary ---
Author Organization [employer] Address [address] [place] [address] Care Team Providers Care Wagon Driver Name Role Phone Name, Rolf PARKS Primary Care Provider [phone] Martine Broussard PharmD Unavailable [phone] Reason for Visit * Reason Comments Med Refill Encounter Details Date Type Department Care Team (Late st Contact Info) Description 06/13/2024 Refill [facility] MEDICINE [address] [place], [place] [phone] Name, MD Rolf [address] [place], [place] [phone] S/P TKR (total knee replacement), left; Anxiety [...] Info) Description 04/20/2025 11:00 AM EST Telemedicine [facility] MEDICINE [address] [place] [address] Karla Lewis RN documented as of this [...] documented as of this encounter Care Teams Wagon Driver Relationship Specialty Start Date End Date Name, MD Rolf [address] [place] [address] PCP - General Family Medicine 10/21/17 Martine Broussard, Paulo [address] [place] [address] [place] [phone] Pharmacist Internal Medicine 04/20/23 documented as of this encounter
--- OUTSIDE RECORDS SUMMARY | 2025-03-15 11:35 | XMS_ITS | Encounter Summary ---
Author Organization [employer] Address [address] [place] [address] Care Team Providers Care Clerk Telegraph Service Name Role Phone Name, Rolf PARKS Primary Care Provider [phone] Martine Broussard PharmD Unavailable [phone] Reason for Visit * Reason Comments Med Refill Encounter Details Date Type Department Care Team (Late st Contact Info) Description 07/21/2024 Refill [facility] MEDICINE 230 [place], [place] [phone] Name, MD Rolf [address] [place], [place] [phone] S/P TKR (total knee replacement), left Social [...] EST Telemedicine [facility] MEDICINE [address] [place] [address] Karla Lewis RN documented as of this [...] documented as of this encounter Care Teams Clerk Telegraph Service Relationship Specialty Start Date End Date Name, MD Rolf [address] [place] [address] PCP - General Family Medicine 10/21/17 Martine Broussard, Paulo [address] [place] [address] Pharmacist Internal Medicine 04/20/23 documented as of this encounter
--- OUTSIDE RECORDS SUMMARY | 2025-03-15 11:35 | XMS_ITS | Encounter Summary ---
Author Organization [employer] Address [address] [place] [address] Care Team Providers Care Director Of Financial Planning Name Role Phone Name, Rolf PARKS Primary Care Provider [phone] Puia, Martine PharmD Unavailable Puia, Martine PharmD Unavailable Reason for Visit * Reason Onset Date Comments Med Refill 05/21/2023 Encounter Details Date Type Department Care Team (Late st Contact Info) Description 05/21/2023 Telephone [facility] MEDICINE 230 [place] [address] Name, MD Rolf [address] [place], [place] [phone] Med Refill Social History Tobacco Use Types [...] AM EST Sexual Orientation Don't know 05/22/2022 9 :34 AM EST documented as of this encounter Miscellaneous Notes * Telephone Encounter - Mary Peres LPN - 05/21/2023 9:48 AM EST Medication was sent to [facility] on 04/20/23 with 11 refills. * Telephone Encounter - Brown Giraldo - 05/21/2023 9:30 AM EST TC from pt requesting medication refill. Medications needing refill : dulaglutide (Trulicity) 3 MG/0.5ML solution pen-injector To be sent to: [facility] - [place], [place] - [address] [facility] documented in this encounter Plan of Treatment Upcoming Encounters Date Type Department Care Team (Late st Contact Info) Description 04/20/2025 11:00 AM EST Telemedicine [facility] MEDICINE [address] [place] [address] Karla Lewis RN documented as of this [...] of this encounter Care Teams Director Of Financial Planning Relationship Specialty Start Date End Date Name, MD Rolf [address] [place] [address] PCP - General Family Medicine 10/21/17 Martine Broussard PharmD [address] [place] [address] Pharmacist Internal Medicine 04/20/23 Martine Broussard PharmD [address] [place] [address] Pharmacist Internal Medicine 04/20/23 08/11/23 documented as of this encounter
--- OUTSIDE RECORDS SUMMARY | 2025-03-15 11:35 | XMS_ITS | Encounter Summary ---
Author Organization [employer] Address [address] [place] [address] [place] [address] Care Team Providers Care Seamer Operator Name Role Phone Name, Rolf PARKS Primary Care Provider [phone] Puia, Martine PharmD Unavailable Puia, Martine PharmD Unavailable Reason for Visit * Reason Comments Med Refill Encounter Details Date Type Department Care Team (Late st Contact Info) Description 05/31/2023 Refill [facility]S [address] [place] [address] Delisa Hilliard MD 230 [place] [address] Osteoarthritis of knee, unspecified laterality, unspecified osteoarthritis [...] 04/20/2025 11:00 AM EST Telemedicine [facility] MEDICINE [address] [place] [address] Karla Lewis RN documented as of this [...] documented as of this encounter Care Teams Seamer Operator Relationship Specialty Start Date End Date Name, MD Rolf [address] [place] [address] PCP - General Family Medicine 10/21/17 Martine Broussard, PharmD [address] [place] [address] Pharmacist Internal Medicine 04/20/23 Martine Broussard, PharmD [address] [place] [address] Pharmacist Internal Medicine 04/20/23 08/11/23 documented as of this encounter
--- OUTSIDE RECORDS SUMMARY | 2025-03-15 11:35 | XMS_ITS | Encounter Summary ---
Author Organization [employer] Address [address] [place] [address] Care Team Providers Care Sign Letterer Name Role Phone Name, Rolf PARKS Primary Care Provider [phone] Martine Broussard PharmD Unavailable Reason for Visit * Reason Comments Med Refill Encounter Details Date Type Department Care Team (Late st Contact Info) Description 01/28/2024 Refill [facility] MEDICINE [address] [place], [place] [phone] Name, MD Rolf [address] [place] [address] Iron deficiency anemia, unspecified iron deficiency anemia [...] Info) Description 04/20/2025 11:00 AM EST Telemedicine [facility] MEDICINE [address] [place] [address] Karla Lewis RN documented as of this [...] as of this encounter Care Teams Sign Letterer Relationship Specialty Start Date End Date Name, MD Rolf [address] [place] [address] PCP - General Family Medicine 10/21/17 Martine Broussard, GarrettD [address] [place] [address] Pharmacist Internal Medicine 04/20/23 documented as of this encounter
--- OUTSIDE RECORDS SUMMARY | 2025-03-15 11:35 | XMS_ITS | Encounter Summary ---
Author Organization [employer] Address [address] [place] [address] Care Team Providers Care Logistics And Planning Manager Name Role Phone Name, Rolf PARKS Primary Care Provider [phone] Martine Broussard PharmD Unavailable Reason for Visit * Reason Onset Date Comments Med Refill 07/27/2024 Encounter Details Date Type Department Care Team (Late st Contact Info) Description 07/27/2024 Telephone [facility] MEDICINE 230 [place], [place] [phone] Name, MD Rolf [address] [place], [place] [phone] Med Refill Social History Tobacco Use Types [...] Miscellaneous Notes * Telephone Encounter - Funmi Benjaimn - 07/27/2024 9:43 AM EDT TC from pt requesting medication refill. Medications needing refill : oxyCODONE-acetaminophen (Percocet) 5-325 MG tablet To be sent to: [id number] [place] [address] [address] [facility] documented in this encounter Plan of Treatment Upcoming Encounters Date Type Department Care Team ([facility] st Contact Info) Description 04/20/2025 11:00 AM EST Telemedicine [facility] MEDICINE [address] [place] [address] Karla Lewis RN documented as of this encounter Goals Goal Patient Goal Type Associated Problems Recent Progress Patient-Stated? Author Hemoglobin A1c < 7 Result Component 7.4(10/31/202 5 10:17 AM EDT) No Martine Broussard, PharmD Record your blood sugar as directed Result Component No Martine Broussard, PharmD documented as of this encounter Visit Diagnoses Not on filedocumented in this encounter Additional Health Concerns Assessment Noted Time PHQ-9 Depression Total Score: 0 12/06/19 24 10:09 AM EDT documented as of this encounter Care Teams Logistics And Planning Manager Relationship Specialty Start Date End Date Name, MD Rolf [address] [place] [address] PCP - General Family Medicine 10/21/17 Martine Broussard, PharmD [address] [place] [address] Pharmacist Internal Medicine 04/20/23 documented as of this encounter
--- OUTSIDE RECORDS SUMMARY | 2025-03-15 11:35 | XMS_ITS | Encounter Summary ---
Author Organization [employer] Address [address] [place] [address] Care Team Providers Care Learn To Swim Instructor Name Role Phone Name, Rolf PARKS Primary Care Provider [phone] Puia, Martine PharmD Unavailable Puia, Martine PharmD Unavailable Reason for Visit * Reason Onset Date Comments Med Refill 05/04/2023 Encounter Details Date Type Department Care Team (Late st Contact Info) Description 05/04/2023 Telephone [facility] MEDICINE [address] [place] [address] Name, MD Rolf [address] [place], [place] [phone] Med Refill Social History Tobacco Use Types [...] 3:59 PM EST Gabapentin was sent to [facility] on 04/21/23 and [id number] with 2 refills. * [...] 04/20/2025 11:00 AM EST Telemedicine [facility] MEDICINE [address] [place] [address] Karla Lewis RN documented as of this [...] documented as of this encounter Care Teams Learn To Swim Instructor Relationship Specialty Start Date End Date Name, MD Rolf [address] [place] [address] PCP - General Family Medicine 10/21/17 Martine Broussard PharmD [address] [place] [address] Pharmacist Internal Medicine 04/20/23 Martine Broussard PharmD [address] [place] [address] Pharmacist Internal Medicine 04/20/23 08/11/23 documented as of this encounter
--- OUTSIDE RECORDS SUMMARY | 2025-03-15 11:35 | XMS_ITS | Encounter Summary ---
Author Organization [employer] Address [address] [place] [address] Care Team Providers Care Hospital Plan Administrator Name Role Phone Name, Rolf PARKS Primary Care Provider [phone] Puia, Martine PharmD Unavailable [phone] Puia, Martine PharmD Unavailable Reason for Visit * Reason Onset Date Comments Med Refill 03/23/2023 Encounter Details Date Type Department Care Team (Late st Contact Info) Description 03/23/2023 Telephone [facility] MEDICINE 230 [place] [address] Name, MD Rolf 230 [place], [place] [phone] Med Refill Social History Tobacco Use Types [...] 2:18 PM EST Medication was sent to [facility] on 12/07/22 with 11 refills. * Telephone Encounter - Nela Whalen - 03/23/2023 2:15 PM EST Tc from pt requesting med refill on; dulaglutide (Trulicity) 3 MG/0.5ML solution pen-injector [facility] [address] [place] [address] [facility] [facility] documented in this encounter Plan of Treatment Upcoming Encounters Date Type Department Care Team (Late st Contact Info) Description 04/20/2025 11:00 AM EST Telemedicine [facility] MEDICINE [address] [place] [address] Karla Lewis RN documented as of this encounter Visit Diagnoses Not on filedocumented in this encounter Additional Health Concerns Assessment Noted Time PHQ-9 Depression Total Score: 14 023 1:07 PM EDT documented as of this encounter Care Teams Hospital Plan Administrator Relationship Specialty Start Date End Date Name, MD Rolf [address] [place] [address] PCP - General Family Medicine 10/21/17 [place] [address] Pharmacist Internal Medicine 04/20/23 [place] [address] Pharmacist Internal Medicine 04/20/23 08/11/23 documented as of this encounter
--- OUTSIDE RECORDS SUMMARY | 2025-03-15 11:35 | XMS_ITS | Encounter Summary ---
Author Organization [employer] Address [address] [place] [address] Care Team Providers Care Ice Cream Server Name Role Phone Tye, Rolf PARKS Primary Care Provider [phone] Martine Broussard PharmD Unavailable [phone] Reason for Visit * Reason Comments Med Refill Encounter Details Date Type Department Care Team ([facility] st Contact Info) Description 01/11/2025 Refill [facility] MEDICINE [address] [place], [place] [phone] Name, MD Rolf [address] [place] [address] Chronic insomnia Social History Tobacco Use Types [...] Telemedicine [facility] MEDICINE [address] [place] [address] Karla Lewis, DARYN documented as of this [...] documented as of this encounter Care Teams Ice Cream Server Relationship Specialty Start Date End Date Name, MD Rolf [address] [place] [address] PCP - General Family Medicine 10/21/17 Martine Broussard, PharmD [address] [place] [address] Pharmacist Internal Medicine 04/20/23 documented as of this encounter
--- OUTSIDE RECORDS SUMMARY | 2025-03-15 11:35 | XMS_ITS | Encounter Summary ---
Author Organization [employer] Address [address] [place] [address] Care Team Providers Care Lay Out Technician Name Role Phone Name, Rolf PARKS Primary Care Provider [phone] Martine Broussard PharmD Unavailable Reason for Visit * Reason Comments Med Refill Encounter Details Date Type Department Care Team (Late st Contact Info) Description 02/02/2024 Refill [facility] MEDICINE 230 [place], [place] [phone] Name, MD Rolf [address] [place] [address] Iron deficiency anemia, unspecified iron deficiency anemia [...] Info) Description 04/20/2025 11:00 AM EST Telemedicine [facility] MED[facility]INE [address] [place] [address] Karla Lewis RN documented as of this [...] documented as of this encounter Care Teams Lay Out Technician Relationship Specialty Start Date End Date Name, MD Rolf [address] [place] [address] PCP - General Family Medicine 10/21/17 Martine Broussard, GarrettD [address] [place] [address] Pharmacist Internal Medicine 04/20/23 documented as of this encounter
--- OUTSIDE RECORDS SUMMARY | 2025-03-15 11:35 | XMS_ITS | Encounter Summary ---
Author Organization [employer] Address [address] [place] [address] Care Team Providers Care Social Worker Aide Name Role Phone Name, Rolf PARKS Primary Care Provider [phone] Martine Broussard PharmD Unavailable [phone] Reason for Visit * Reason Comments Med Refill Encounter Details Date Type Department Care Team (Late st Contact Info) Description 06/21/2024 Refill [facility] MEDICINE [address] [place], [place] [phone] Name, MD Rolf [address] [place], [place] [phone] S/P TKR (total knee replacement), left; Anxiety [...] 04/20/2025 11:00 AM EST Telemedicine [facility] MEDICINE [address] [place] [address] Karla Lewis RN documented as of this [...] as of this encounter Care Teams Social Worker Aide Relationship Specialty Start Date End Date Name, MD Rolf [address] [place] [address] PCP - General Family Medicine 10/21/17 Martine Broussard, Paulo [address] [place] [address] [place] [phone] Pharmacist Internal Medicine 04/20/23 documented as of this encounter
--- OUTSIDE RECORDS SUMMARY | 2025-03-15 11:35 | XMS_ITS | Encounter Summary ---
Author Organization [employer] Address [address] [place] [address] Care Team Providers Care Trimmer And Reinforcer Name Role Phone Name, Rolf PARKS Primary Care Provider [phone] Martine Broussard PharmD Unavailable [phone] Reason for Visit * Reason Onset Date Comments Durable Medical Equipment 01/22/2025 Encounter Details Date Type Department Care Team (Late st Contact Info) Description 01/22/2025 Telephone [facility] [address] [place], [place] [phone] Name, MD Rolf 230 [place], [place] [phone] Durable Medical Equipment Social History Tobacco Use [...] * Telephone Encounter - Mandy Strange - 02/05/2025 12:35 PM EDT Pt requesting disposable bed pads. If agree, can you please addend your note to support the need for incontinence products? Thank you * Telephone Encounter - Margarita Godoy - 02/01/2025 2:34 PM EDT Pt daughter calling back stating she is coming out of pocket for bed pads Contact at [phone] * Telephone Encounter - Margarita Godoy - 01/31/2025 11:07 AM EDT Tc from pt requesting a call back regarding update on DME Contact pt at [phone] * Telephone Encounter - Mandycarla Campbelliz - 01/22/2025 3:35 PM EDT Please see message below and advise. If agree, please provide dx and notes to support the need for incontinence supplies. Thank you * Telephone Encounter - Margarita Godoy - 01/22/2025 1:58 PM EDT Tc from pt daughter requesting DME order for bed pads Contact at [phone] (venezuelan) documented in this encounter Plan of Treatment Upcoming Encounters Date Type Department Care Team (Late st Contact Info) Description 04/20/2025 11:00 AM EST Telemedicine [facility] [address] [place] [address] Karla Lewis RN documented as of this [...] as of this encounter Care Teams Trimmer And Reinforcer Relationship Specialty Start Date End Date Name, MD Rolf [address] [place] [address] PCP - General Family Medicine 10/21/17 Puia, Martine, PharmD [address] [place] [address] Pharmacist Internal Medicine 04/20/23 documented as of this encounter
--- OUTSIDE RECORDS SUMMARY | 2025-03-15 11:35 | XMS_ITS | Encounter Summary ---
Author Organization [employer] Address [address] [place] [address] Care Team Providers Care Bottle Labeler Name Role Phone Name, Rolf PARKS Primary Care Provider [phone] Martine Broussard PharmD Unavailable Reason for Visit * Reason Comments Med Refill Encounter Details Date Type Department Care Team (Late st Contact Info) Description 01/18/2024 Refill [facility] [address] [place], [place] [phone] Name, MD Rolf [address] [place] [address] Iron deficiency anemia, unspecified iron deficiency anemia [...] EST Telemedicine [facility] [address] [place] [address] Karla Lewis RN documented as of this [...] as of this encounter Care Teams Bottle Labeler Relationship Specialty Start Date End Date Name, MD Rolf [address] [place] [address] PCP - General Family Medicine 10/21/17 Martine Broussard, GarrettD [address] [place] [address] Pharmacist Internal Medicine 04/20/23 documented as of this encounter
--- OUTSIDE RECORDS SUMMARY | 2025-03-15 11:35 | XMS_ITS | Encounter Summary ---
Author Organization [employer] Address [address] [place] [address] Care Team Providers Care Singe Winder Name Role Phone Name, Rolf PARKS Primary Care Provider [phone] Martine Broussard PharmD Unavailable [phone] Reason for Visit * Reason Onset Date Comments FYI 06/27/2024 Encounter Details Date Type Department Care Team (Late st Contact Info) Description 06/27/2024 Telephone [facility] [address] [place], [place] [phone] Name, MD Rolf [address] [place], [place] [phone] FYI Social History Tobacco Use Types Packs/Day [...] to report she had to call [facility] for an emergency, upon arriving home [...] AM EST Telemedicine [facility] [address] [place] [address] Karla Lewis, RN documented as of this encounter Goals Goal Patient Goal Type Associated Problems Recent Progress Patient-Stated? Author Hemoglobin A1c < 7 Result Component 7.4( 5 10:17 AM EDT) No Martine Broussard, PharmLexi Record your blood sugar as directed Result Component No Martine Broussard PharmD documented as of this encounter Visit Diagnoses Not on filedocumented in this encounter Additional Health Concerns Assessment Noted Time PHQ-9 Depression Total Score: 0 12/06/19 24 10:09 AM EDT documented as of this encounter Care Teams Singe Winder Relationship Specialty Start Date End Date Name, MD Rolf [address] [place] [address] PCP - General Family Medicine 10/21/17 Martine Broussard, Paulo [address] [place] [address] Pharmacist Internal Medicine 04/20/23 documented as of this encounter
--- OUTSIDE RECORDS SUMMARY | 2025-03-15 11:35 | XMS_ITS | Encounter Summary ---
Author Organization [employer] Address [address] [place] [address] Care Team Providers Care Domestic Technician Name Role Phone Name, Rolf PARKS Primary Care Provider [phone] Martine Broussard PharmD Unavailable Reason for Visit * Reason Comments Med Refill Encounter Details Date Type Department Care Team (Late st Contact Info) Description 01/28/2024 Refill [facility] 230 [place], [place] [phone] Name, MD Rolf [address] [place] [address] Iron deficiency anemia, unspecified iron deficiency anemia [...] 04/20/2025 11:00 AM EST Telemedicine [facility] [address] [place] [address] Karla Lewis RN documented as of this [...] Date End Date Name, MD Rolf [address] [place] [address] PCP - General Family Medicine 10/21/17 Martine Broussard, GarrettD [address] [place] [address] Pharmacist Internal Medicine 04/20/23 documented as of this encounter
--- OUTSIDE RECORDS SUMMARY | 2025-03-15 11:35 | XMS_ITS | Encounter Summary ---
Author Organization [employer] Address [address] [place] [address] 7 [place] [address] Care Team Providers Care Storage Receipt Poster Name Role Phone Name, Rolf PARKS Primary Care Provider [phone] Martine Broussard PharmD Unavailable Reason for Visit * Reason Comments Med Refill Encounter Details Date Type Department Care Team (Late st Contact Info) Description 01/31/2024 Refill [facility] [address] [place] [address] Name, MD Rolf [address] [place] [address] Chronic pain of left knee; Anxiety; Osteoarthritis [...] Info) Description 04/20/2025 11:00 AM EST Telemedicine [facility] [address] [place] [address] Karla Lewis RN documented as of this [...] documented as of this encounter Care Teams Storage Receipt Poster Relationship Specialty Start Date End Date Name, MD Rolf [address] [place] [address] PCP - General Family Medicine 10/21/17 Martine Broussard PharmD [address] [place] [address] Pharmacist Internal Medicine 04/20/23 documented as of this encounter
--- OUTSIDE RECORDS SUMMARY | 2025-03-15 11:35 | XMS_ITS | Encounter Summary ---
Author Organization [employer] Address [address] [place] [address] Care Team Providers Care Senior Product Development Scientist Name Role Phone Name, Rolf PARKS Primary Care Provider [phone] Martine Broussard PharmD Unavailable [phone] Reason for Visit * Reason Comments Med Refill Encounter Details Date Type Department Care Team (Late st Contact Info) Description 08/16/2024 Refill [facility] 230 [place], [place] [phone] Stefanie Mcneal MD 230 [place], [place] [phone] S/P TKR (total knee replacement), left Social [...] Info) Description 04/20/2025 11:00 AM EST Telemedicine [facility] [address] [place] [address] Karla Lewis RN documented as of this [...] as of this encounter Care Teams Senior Product Development Scientist Relationship Specialty Start Date End Date Name, MD Rolf [address] [place] [address] PCP - General Family Medicine 10/21/17 Martine Broussard, Paulo [address] [place] [address] Pharmacist Internal Medicine 04/20/23 documented as of this encounter
--- OUTSIDE RECORDS SUMMARY | 2025-03-15 11:35 | XMS_ITS | Encounter Summary ---
Author Organization [employer] Address [address] [place] [address] Care Team Providers Care Social Media Analyst Name Role Phone Name, Rolf PARKS Primary Care Provider [phone] Puia, Martine PharmD Unavailable [phone] Puia, Martine PharmD Unavailable [phone] Reason for Visit * Reason Onset Date Comments Med Refill 05/07/2023 Encounter Details Date Type Department Care Team (Late st Contact Info) Description 05/07/2023 Telephone [facility] 230 [place] [address] Name, MD Rolf 230 [place], [place] [phone] Med Refill Social History Tobacco Use Types [...] 3:52 PM EST Medication was sent to [facility] on 04/21/23. * Telephone Encounter - Familia Doyle - 05/07/2023 3:49 PM EST TC from pt requesting medication refill. Medications needing refill : gabapentin (Neurontin) 300 MG capsule To be sent to: [facility] documented in this encounter Plan of Treatment Upcoming Encounters Date Type Department Care Team (Late st Contact Info) Description 04/20/2025 11:00 AM EST Telemedicine [facility] [address] [place] [address] Karla Lewis RN documented as of this [...] as of this encounter Care Teams Social Media Analyst Relationship Specialty Start Date End Date Name, MD Rolf 230 [place] [address] PCP - General Family Medicine 10/21/17 Martine Broussard PharmD 230 [place] [address] Pharmacist Internal Medicine 04/20/23 Martine Broussard PharmD 230 [place] [address] Pharmacist Internal Medicine 04/20/23 08/11/23 documented as of this encounter
--- OUTSIDE RECORDS SUMMARY | 2025-03-15 11:35 | XMS_ITS | Encounter Summary ---
Author Organization [employer] Address [address] [place] [address] Care Team Providers Care Cone Cleaner Name Role Phone Tye, Rolf PARKS Primary Care Provider [phone] Martine Broussard PharmD Unavailable [phone] Reason for Visit * Reason Comments Med Refill Encounter Details Date Type Department Care Team ([facility] st Contact Info) Description 10/15/2024 Refill [facility] [address] [place], [place] [phone] Name, MD Rolf [address] [place] [address] Chronic insomnia Social History Tobacco Use Types [...] Description 04/20/2025 11:00 AM EST Telemedicine [facility] [address] [place] [address] Karla Lewis, DARYN documented as of this [...] documented as of this encounter Care Teams Cone Cleaner Relationship Specialty Start Date End Date Name, MD Rolf [address] [place] [address] PCP - General Family Medicine 10/21/17 Martine Broussard, PharmD [address] [place] [address] Pharmacist Internal Medicine 04/20/23 documented as of this encounter
--- OUTSIDE RECORDS SUMMARY | 2025-03-15 11:35 | XMS_ITS | Encounter Summary ---
Author Organization [employer] Address [address] [place] [address] Care Team Providers Care Bakery Technician Name Role Phone Name, Rolf PARKS Primary Care Provider Martine Broussard PharmD Unavailable [phone] Reason for Visit * Reason Comments Med Refill Encounter Details Date Type Department Care Team (Late st Contact Info) Description 12/16/2023 Refill [facility] 230 [place], [place] [phone] Name, MD Rolf [address] [place] [address] Osteoarthritis of knee, unspecified laterality, unspecified osteoarthritis [...] Info) Description 04/20/2025 11:00 AM EST Telemedicine [facility] [address] [place] [address] Karla Lewis RN documented as of this [...] documented as of this encounter Care Teams Bakery Technician Relationship Specialty Start Date End Date Name, MD Rolf [address] [place] [address] PCP - General Family Medicine 10/21/17 Martine Broussard, GarrettD [address] [place] [address] Pharmacist Internal Medicine 04/20/23 documented as of this encounter
--- OUTSIDE RECORDS SUMMARY | 2025-03-15 11:35 | XMS_ITS | Encounter Summary ---
Author Organization [employer] Address [address] [place] [address] Care Team Providers Care Electrolytic Etcher Name Role Phone Name, Rolf PARKS Primary Care Provider [phone] Martine Broussard PharmD Unavailable Reason for Visit * Reason Comments Med Refill Encounter Details Date Type Department Care Team (Late st Contact Info) Description 02/02/2024 Refill [facility] [address] [place] [address] Vivian Barajas, ANP 230 [place] [address] Diabetes mellitus type 2 with neurological manifestations [...] 04/20/2025 11:00 AM EST Telemedicine [facility] [address] [place] [address] Karla Lewis, RN documented as of this [...] documented as of this encounter Care Teams Electrolytic Etcher Relationship Specialty Start Date End Date Name, MD Rolf [address] [place] [address] PCP - General Family Medicine 10/21/17 Martine Broussard, Paulo [address] [place] [address] Pharmacist Internal Medicine 04/20/23 documented as of this encounter
--- OUTSIDE RECORDS SUMMARY | 2025-03-15 11:35 | XMS_ITS | Encounter Summary ---
Author Organization [employer] Address [address] [place] [address] Care Team Providers Care Drying Room Operator Name Role Phone Name, Rolf PARKS Primary Care Provider [phone] Puia, Martine PharmD Unavailable Puia, Martine PharmD Unavailable Reason for Visit * Reason Onset Date Comments Med Refill 05/07/2023 Encounter Details Date Type Department Care Team (Late st Contact Info) Description 05/07/2023 Refill [facility] 230 [place] [address] Name, MD Rolf 230 [place], [place] [phone] Osteoarthritis of knee, unspecified laterality, unspecified osteoarthritis [...] 50 MG tablet To be sent to: [facility] documented in this encounter Plan of Treatment Upcoming Encounters Date Type Department Care Team (Late st Contact Info) Description 04/20/2025 11:00 AM EST Telemedicine [facility] [address] [place] [address] Karla Lewis RN documented as of this [...] documented as of this encounter Care Teams Drying Room Operator Relationship Specialty Start Date End Date Name, MD Rolf [address] [place] [address] PCP - General Family Medicine 10/21/17 Martine Broussard PharmD [address] [place] [address] Pharmacist Internal Medicine 04/20/23 Martine Broussard PharmD [address] [place] [address] Pharmacist Internal Medicine 04/20/23 08/11/23 documented as of this encounter
--- OUTSIDE RECORDS SUMMARY | 2025-03-15 11:35 | XMS_ITS | Encounter Summary ---
Author Organization [employer] Address [address] [place] [address] Care Team Providers Care Wing Mailer Machine Operator Name Role Phone Name, Rolf PARKS Primary Care Provider [phone] Martine Broussard PharmD Unavailable [phone] Reason for Visit * Reason Comments Med Refill Encounter Details Date Type Department Care Team (Late st Contact Info) Description 07/05/2024 Refill [facility] 230 [place], [place] [phone] Name, MD Rolf 230 [place], [place] [phone] S/P TKR (total knee replacement), left Social [...] Info) Description 04/20/2025 11:00 AM EST Telemedicine [facility] [address] [place] [address] Karla Lewis RN documented as of this [...] documented as of this encounter Care Teams Wing Mailer Machine Operator Relationship Specialty Start Date End Date Name, MD Rolf [address] [place] [address] PCP - General Family Medicine 10/21/17 Martine Broussard, Paulo [address] [place] [address] Pharmacist Internal Medicine 04/20/23 documented as of this encounter
--- OUTSIDE RECORDS SUMMARY | 2025-03-15 11:36 | XMS_ITS | Encounter Summary ---
Author Organization [employer] Address [address] [place] [address] Care Team Providers Care Tax Adjuster Name Role Phone Name, Rolf PARKS Primary Care Provider [phone] Martine Broussard PharmD Unavailable Reason for Visit * Reason Comments Med Refill Encounter Details Date Type Department Care Team (Late st Contact Info) Description 12/12/2024 Refill [facility] 230 [place], [place] [phone] Name, MD Rolf [address] [place] [address] Osteoarthritis of knee, unspecified laterality, unspecified osteoarthritis [...] Upcoming Encounters Date Type Department Care Team ([facility] Contact Info) Description 04/20/2025 11:00 AM EST Telemedicine [facility] [address] [place] [address] Karla Lewis, RN documented as of this [...] documented as of this encounter Care Teams Tax Adjuster Relationship Specialty Start Date End Date Name, MD Rolf [address] [place] [address] PCP - General Family Medicine 10/21/17 Martine Broussard PharmD [address] [place] [address] Pharmacist Internal Medicine 04/20/23 documented as of this encounter
[2025-03-15 11:39] LABS: Hematocrit 47.0 % (42.0-52.0); Hemoglobin 14.7 g/dl (14.0-18.0); Imm Gran Abs Auto 0.03 X10*3/uL (0.00-0.03); Imm Gran Pct Auto 0.4 % (0.0-0.4); Lymphocytes Absolute Auto 1.4 X10*3/uL (1.2-4.9); Mean Corpuscular HGB Conc 31.3 g/dl (31.0-36.0); Mean Corpuscular Hemoglobin 28.3 pg (27.0-33.0); Mean Corpuscular Volume 90.6 fL (80.0-98.0); NRBC Abs Auto 0.000 X10*3/uL (0.0-0.012); NRBC Pct Auto 0.0 /100WBC (0.0-0.2); Platelet Count 227 X10*3/uL (160-400); Red Blood Count 5.19 X10*6/uL (4.60-5.80); White Blood Count 6.8 X10*3/uL (4.8-10.8)
[2025-03-15 12:11] LABS: Alanine Aminotransferase 57 U/L (0-40); Albumin Level 4.9 g/dL (3.5-5.0); Alkaline Phosphatase 80 U/L (39-117); Anion Gap 13 (12-20); Aspartate Amino Transferase 49 U/L (5-37); Blood Urea Nitrogen 21 mg/dL (9-16); Calcium 10.0 mg/dL (8.4-10.2); Carbon Dioxide 31 mmol/L (22-29); Chloride 105 mmol/L (96-108); Cholesterol 142 mg/dL (<200); Estimated Glomerular Filt Rate > 60; HDL Cholesterol 31 mg/dL (>40); Potassium 5.7 mmol/L (3.3-5.1); Sodium 143 mmol/L (135-145); Total Protein 8.1 g/dL (6.5-8.0); Triglycerides 126 mg/dL (<150)
== END 2025-03-15 09:50 | disposition home or self-care (01) ==
LOC: HO.HHCL 09:49
PROVIDERS: PCP Internal Medicine Geriatric Medicine; Visit Provider Internal Medicine Geriatric Medicine
DX: E11.49 Type 2 diabetes mellitus with other diabetic neurological complication (principal); I50.22 Chronic systolic (congestive) heart failure; M25.561 Pain in right knee; M25.562 Pain in left knee; G89.29 Other chronic pain
CPT/HCPCS: 36415; 80053; 80061; 85025

== ENCOUNTER → 2025-04-16 07:42 | Outpatient (REF) | payer OTHER, SELFPAY ==
--- NOTE | 2025-04-16 07:45 | CA_ITS ---
Acquisition Time: 2025-04-16 08:16:09 Total Exercise Time: 00:02:00 Test Indications: Abnormal ECG CP SOB Medications: ALBUTEROL GABAPENTIN LOSARTAN METOPROLOL MIRTAZAPINE TRAZADONE Protocol: LEXISCAN Max HR: 114 BPM 75% of Pred: 152 BPM Max BP: 120/70 mmHG Max Work Load: 1.0 METS Pharmacological stress test with Lexiscan while pt marches in his chair, without any reported symptoms, with isolated PVCs, with normotensive response to injection. Nondiagnostic EKG for ichemia. In recovery, pt treated with IVP Aminophylline 75mg to reverse Lexiscan after which pt feeling back to baseline. Nuclear images pending. Test reviewed with Dr. Gomez. PS- test switched to Lexiscan due to difficulty walking and uses a cane at baseline. Referred By: Alex Hines Electronically Signed By: Ulisses Oden
== END ==
LOC: HO.CARD 07:42
PROVIDERS: PCP Internal Medicine Geriatric Medicine; Visit Provider Internal Medicine
DX: R07.2 Precordial pain (principal); I25.10 Atherosclerotic heart disease of native coronary artery without angina pectoris; I42.9 Cardiomyopathy, unspecified
CPT/HCPCS: 93017; J0280; J2785

== ENCOUNTER → 2025-04-16 07:45 | Outpatient (BNV) | payer OTHER, SELFPAY | PROVIDERS: PCP Internal Medicine Geriatric Medicine | DX: I49.3 Ventricular premature depolarization (principal) | CPT/HCPCS: 78452; 93016; 93018 ==